=== PATIENT | female | born 1955 | race Two or more races ===

== ENCOUNTER 2020-08-21 13:06 | Outpatient (REF) | payer MEDICARE, SELFPAY ==
--- NOTE | 2020-08-21 13:14 | MM_ITS ---
EXAMINATION: MM DIAGNOSTIC DIGITAL BREAST TOMOSYNTHESIS, BILATERAL CLINICAL INFORMATION: Digital for yearly exam. Probable benign calcifications related to degenerating fibroadenoma retroareolar right breast for follow-up. The lifetime risk of breast cancer based on the Tyrer-Cuzick Model is 7%. COMPARISON: Mammography: 08/10/2019, 01/25/2019, 07/27/2018, 07/20/2018 (BI-RADS 0). TECHNIQUE: Digital breast tomosynthesis is performed in both the craniocaudal and mediolateral oblique views along with computer-aided detection (CAD). Synthesized 2D images are generated from the tomosynthesis. Additional magnification right CC and magnification right ML views are obtained. FINDINGS: There are scattered areas of fibroglandular density (ACR BI-RADS breast composition Category b). Parenchymal pattern is similar to prior studies. There is no interval mass or architectural abnormality. There is a smooth non-mineralized circumscribed nodule anterior central right breast similar to prior exams. The retroareolar nodule associated predominantly coarse calcifications is again seen. Calcifications are coarse and then on initial diagnostic exam. There is no suspicious changes during surveillance. This is now considered to be benign. The remainder of the breasts are unremarkable. Results are provided to the patient at time of visit by the technologist. IMPRESSION: No significant changes from prior studies. The retroareolar right breast calcified patient's likely degenerating fibroadenoma are considered benign. ASSESSMENT: BI-RADS 2: Benign RECOMMENDATION: Routine annual mammography screening. This patient's information was entered into a reminder system with a target due date for their next mammogram.
== END 2020-08-21 13:07 | disposition home or self-care (01) ==
LOC: HO.MAMMO 13:06
PROVIDERS: Visit Provider Internal Medicine
DX: R92.1 Mammographic calcification found on diagnostic imaging of breast (principal)
CPT/HCPCS: 77062; 77066

== ENCOUNTER → 2020-11-17 11:44 | Outpatient (BNVA) | payer MEDICARE, SELFPAY | PROVIDERS: PCP Internal Medicine; Visit Provider Urology | DX: N39.0 Urinary tract infection, site not specified (principal) | CPT/HCPCS: 99212 ==

== ENCOUNTER 2020-11-20 11:41 | Outpatient (REF) | payer MEDICARE, SELFPAY ==
[2020-11-20 14:16] LABS: Estimated Average Glucose 180 mg/dL; Hemoglobin A1c % 7.9 %
[2020-11-20 14:38] LABS: Creatinine Urine 53.07 mg/dL; Microalbum/Creatinine Ratio Ur 160.1 ug/mg cr
[2020-11-20 14:40] LABS: Alanine Aminotransferase 15 U/L (0-31); Anion Gap 14 (12-20); Aspartate Amino Transferase 17 U/L (5-31); Blood Urea Nitrogen 18 mg/dL (9-16); Calcium 9.2 mg/dL (8.4-10.2); Carbon Dioxide 26 mmol/L (22-29); Chloride 103 mmol/L (96-108); Cholesterol 160 mg/dL; Estimated Glomerular Filt Rate > 60; Glucose Fasting 107 mg/dL (60-99); HDL Cholesterol 41 mg/dL; LDL Cholesterol Calculated 96 mg/dl; Potassium 4.2 mmol/l (3.3-5.1); Sodium 139 mmol/L (135-145); Triglycerides 117 mg/dL
== END 2020-11-20 11:42 | disposition home or self-care (01) ==
LOC: HO.HMGCLDS 11:41
PROVIDERS: PCP Internal Medicine; Visit Provider Internal Medicine
DX: E11.65 Type 2 diabetes mellitus with hyperglycemia (principal); I10 Essential (primary) hypertension; E78.5 Hyperlipidemia, unspecified
CPT/HCPCS: 36415; 80048; 80061; 82043; 83036; 84450; 84460

== ENCOUNTER 2021-02-23 11:45 | Outpatient (REF) | payer OTHER, SELFPAY ==
[2021-02-23 14:16] LABS: Estimated Average Glucose 174 mg/dL; Hemoglobin A1c % 7.7 %
[2021-02-23 14:31] LABS: Alanine Aminotransferase 20 U/L (0-31); Albumin Level 4.7 g/dL (3.5-5.0); Alkaline Phosphatase 79 U/L (39-117); Anion Gap 13 (12-20); Aspartate Amino Transferase 18 U/L (5-31); Bilirubin Total 1.3 mg/dL (0.0-1.0); Blood Urea Nitrogen 20 mg/dL (9-16); Calcium 9.9 mg/dL (8.4-10.2); Carbon Dioxide 30 mmol/L (22-29); Chloride 101 mmol/L (96-108); Cholesterol 182 mg/dL; Estimated Glomerular Filt Rate > 60; Glucose Fasting 125 mg/dL (60-99); HDL Cholesterol 51 mg/dL; LDL Cholesterol Calculated 111 mg/dl; Potassium 4.1 mmol/L (3.3-5.1); Sodium 140 mmol/L (135-145); Total Protein 7.5 g/dL (6.5-8.0); Triglycerides 102 mg/dL
[2021-02-23 14:54] LABS: Vitamin D 25-OH Total 41.3 ng/mL (>30)
== END 2021-02-23 11:46 | disposition home or self-care (01) ==
LOC: HO.HMGCLDS 11:45
PROVIDERS: PCP Internal Medicine; Visit Provider Internal Medicine
DX: E11.29 Type 2 diabetes mellitus with other diabetic kidney complication (principal); E78.5 Hyperlipidemia, unspecified; I10 Essential (primary) hypertension; I25.10 Atherosclerotic heart disease of native coronary artery without angina pectoris; R80.9 Proteinuria, unspecified
CPT/HCPCS: 36415; 80053; 80061; 82306; 83036

== ENCOUNTER 2021-05-24 09:09 | Outpatient (REF) | payer OTHER, SELFPAY ==
[2021-05-24 11:51] LABS: Alanine Aminotransferase 18 U/L (0-31); Anion Gap 12 (12-20); Aspartate Amino Transferase 18 U/L (5-31); Blood Urea Nitrogen 18 mg/dL (9-16); Calcium 9.8 mg/dL (8.4-10.2); Carbon Dioxide 29 mmol/L (22-29); Chloride 103 mmol/L (96-108); Cholesterol 183 mg/dL; Estimated Glomerular Filt Rate > 60; Glucose Fasting 149 mg/dL (60-99); HDL Cholesterol 48 mg/dL; LDL Cholesterol Calculated 116 mg/dl; Potassium 4.7 mmol/L (3.3-5.1); Sodium 139 mmol/L (135-145); Triglycerides 97 mg/dL
[2021-05-24 12:02] LABS: Estimated Average Glucose 171 mg/dL; Hemoglobin A1c % 7.6 %
== END 2021-05-24 09:10 | disposition home or self-care (01) ==
LOC: HO.HMGCLDS 09:09
PROVIDERS: PCP Internal Medicine; Visit Provider Internal Medicine
DX: E11.29 Type 2 diabetes mellitus with other diabetic kidney complication (principal); E78.5 Hyperlipidemia, unspecified; I10 Essential (primary) hypertension; I25.10 Atherosclerotic heart disease of native coronary artery without angina pectoris; R80.9 Proteinuria, unspecified
CPT/HCPCS: 36415; 80048; 80061; 83036; 84450; 84460

== ENCOUNTER 2021-06-15 07:54 | Outpatient (REF) | payer OTHER, SELFPAY ==
--- NOTE | 2021-06-15 16:52 | PFT_ITS ---
Forced vital capacity, FEV1, [id number], and MVV are all moderately decreased. Post bronchodilator therapy, there is a significant improvement in [id number], but not in other flow volumes. Total lung capacity is moderately decreased. Residual volume normal. Diffusion capacity is slightly decreased. CONCLUSION: [id number] degree of restrictive pulmonary disorder. Possible mild obstructive airway disorder of the smaller airways which improves after bronchodilator therapy. This finding may be suggestive of a mild degree of bronchospastic component. Clinical correlation is recommended. MD BIB Elena/ANTOINE / [id number]
== END 2021-06-15 07:55 | disposition home or self-care (01) ==
LOC: HO.RESP 07:54
PROVIDERS: PCP Internal Medicine; Visit Provider Internal Medicine
DX: R05 Cough (principal)
CPT/HCPCS: 94060; 94727; 94729

== ENCOUNTER → 2021-06-26 14:12 | Outpatient (BNVA) | payer OTHER, SELFPAY | PROVIDERS: PCP Internal Medicine | DX: N39.0 Urinary tract infection, site not specified (principal) | CPT/HCPCS: 51798; 99212 ==

== ENCOUNTER → 2021-07-05 12:46 | Outpatient (BNVA) | payer OTHER, SELFPAY | PROVIDERS: PCP Internal Medicine; Visit Provider Dietitian, Registered | DX: E11.29 Type 2 diabetes mellitus with other diabetic kidney complication (principal); R80.9 Proteinuria, unspecified | CPT/HCPCS: 97803 ==

== ENCOUNTER 2021-07-26 11:25 | Outpatient (REF) | payer OTHER, SELFPAY ==
[2021-07-27 14:05] LABS: CT PCR NOT DETECTED (Not Detect.); NG PCR NOT DETECTED (Not Detect.)
[2021-07-28 15:22] LABS: BV Int Neg Control Negative (Negative); BV Int Pos Control Positive (Positive)
[2021-08-01 08:21] LABS: HPV mRNA E6/E7 rflx Not Detected (Not Detected)
== END 2021-07-26 11:26 | disposition home or self-care (01) ==
LOC: HO.LAB 11:25
PROVIDERS: Visit Provider Advanced Practice Midwife
DX: Z01.419 Encounter for gynecological examination (general) (routine) without abnormal findings (principal); Z11.51 Encounter for screening for human papillomavirus (HPV); Z11.3 Encounter for screening for infections with a predominantly sexual mode of transmission
CPT/HCPCS: 87480; 87491; 87510; 87591; 87624; 87660; 88142

== ENCOUNTER → 2021-08-16 13:05 | Outpatient (BNVA) | payer OTHER, SELFPAY | PROVIDERS: PCP Internal Medicine; Visit Provider Dietitian, Registered | DX: E11.65 Type 2 diabetes mellitus with hyperglycemia (principal); E11.29 Type 2 diabetes mellitus with other diabetic kidney complication; I25.10 Atherosclerotic heart disease of native coronary artery without angina pectoris; I10 Essential (primary) hypertension; J45.20 Mild intermittent asthma, uncomplicated; M85.88 Other specified disorders of bone density and structure, other site; Z79.4 Long term (current) use of insulin; R80.8 Other proteinuria; Z88.6 Allergy status to analgesic agent; Z88.1 Allergy status to other antibiotic agents; Z88.2 Allergy status to sulfonamides; Z88.8 Allergy status to other drugs, medicaments and biological substances; Z95.5 Presence of coronary angioplasty implant and graft; Z53.29 Procedure and treatment not carried out because of patient's decision for other reasons; Z71.3 Dietary counseling and surveillance | CPT/HCPCS: 97803 ==

== ENCOUNTER → 2021-08-21 13:34 | Outpatient (BNVA) | payer OTHER, SELFPAY | DX: N32.81 Overactive bladder (principal) | CPT/HCPCS: 99212 ==

== ENCOUNTER 2021-08-28 12:58 | Outpatient (REF) | payer OTHER, SELFPAY ==
--- NOTE | ~2021-08-28 | MM_ITS ---
EXAMINATION: MM SCREENING DIGITAL BREAST TOMOSYNTHESIS, BILATERAL CLINICAL INFORMATION: Screening. Asymptomatic. The lifetime risk of breast cancer based on the Tyrer-Cuzick Model is 6.1%. COMPARISON: Mammography: August 21, 2020 and studies dating back to May 22, 2011 TECHNIQUE: Digital breast tomosynthesis is performed in both the craniocaudal and mediolateral oblique views along with computer-aided detection (CAD). Synthesized 2D images are generated from the tomosynthesis. FINDINGS: The breasts are heterogeneously dense, which may obscure small masses (ACR BI-RADS breast composition Category c). There are no significant masses, abnormal calcifications, or other abnormalities. Question of density on mediolateral oblique projection central left breast is seen to be similar to previous study of July 20, 2018. MM/MM tomosynthesis screening BI IMPRESSION: There are no significant changes from prior study. ASSESSMENT: BI-RADS 1: Negative RECOMMENDATION: Routine annual mammography screening. This patient's information was entered into a reminder system with a target due date for their next mammogram.
== END 2021-08-28 12:59 | disposition home or self-care (01) ==
LOC: HO.MAMMO 12:58
PROVIDERS: Visit Provider Internal Medicine
DX: Z12.31 Encounter for screening mammogram for malignant neoplasm of breast (principal)
CPT/HCPCS: 77063; 77067

== ENCOUNTER 2021-09-04 09:08 | Outpatient (REF) | payer OTHER, SELFPAY ==
[2021-09-04 11:51] LABS: Alanine Aminotransferase 19 U/L (0-31); Anion Gap 14 (12-20); Aspartate Amino Transferase 19 U/L (5-31); Blood Urea Nitrogen 14 mg/dL (9-16); Calcium 9.6 mg/dL (8.4-10.2); Carbon Dioxide 28 mmol/L (22-29); Chloride 104 mmol/L (96-108); Cholesterol 186 mg/dL; Estimated Glomerular Filt Rate > 60; Glucose Fasting 158 mg/dL (60-99); HDL Cholesterol 47 mg/dL; LDL Cholesterol Calculated 114 mg/dl; Sodium 142 mmol/L (135-145); Triglycerides 126 mg/dL
[2021-09-04 11:53] LABS: Estimated Average Glucose 174 mg/dL; Hemoglobin A1c % 7.7 %
[2021-09-04 12:04] LABS: Vitamin D 25-OH Total 33.4 ng/mL (>30)
== END 2021-09-04 09:09 | disposition home or self-care (01) ==
LOC: HO.HMGCLDS 09:08
PROVIDERS: PCP Internal Medicine; Visit Provider Internal Medicine
DX: E11.29 Type 2 diabetes mellitus with other diabetic kidney complication (principal); E78.5 Hyperlipidemia, unspecified; I10 Essential (primary) hypertension; I25.10 Atherosclerotic heart disease of native coronary artery without angina pectoris; M85.80 Other specified disorders of bone density and structure, unspecified site; R80.9 Proteinuria, unspecified
CPT/HCPCS: 36415; 80048; 80061; 82306; 83036; 84450; 84460

== ENCOUNTER → 2021-12-26 12:28 | Outpatient (BNVA) | payer OTHER, SELFPAY | PROVIDERS: PCP Internal Medicine; Visit Provider Dietitian, Registered | DX: E11.29 Type 2 diabetes mellitus with other diabetic kidney complication (principal); R80.9 Proteinuria, unspecified; Z71.3 Dietary counseling and surveillance | CPT/HCPCS: 97803 ==

== ENCOUNTER 2021-12-31 03:35 | Emergency (ER) | payer OTHER, SELFPAY ==
[2021-12-31 03:51] VITALS: BP 159/83; PULSE 95; RESP 18; TEMP 36.7; O2SAT 99; BMI 22.2
--- NOTE | 2021-12-31 03:58 | ECG_ITS ---
Test Reason : high bp Blood Pressure : / mmHG Vent. Rate : 084 BPM Atrial Rate : 084 BPM P-R Int : 128 ms QRS Dur : 092 ms QT Int : 358 ms P-R-T Axes : 046 -02 008 degrees QTc Int : 423 ms Normal sinus rhythm Normal ECG When compared with ECG of 19-MAR-2017 01:24, T wave inversion less evident in Inferior leads Referred By: Helen Chacon Electronically Signed By:Doroteo Ortiz
[2021-12-31 04:00] VITALS: BP 142/73; PULSE 88; RESP 13; O2SAT 98
--- NOTE | 2021-12-31 04:05 | ED.GENADULT ---
HPI - General Adult General Chief complaint: General Medical Stated complaint: high BP, difficulty standing Time Seen by Provider: 12/31/21 03:44 Source: patient Mode of arrival: ambulatory Limitations: no limitations History of Present Illness HPI narrative: Patient comes to emergency room complaining of feeling funny. Patient states she is unable to describe the sensation. Patient states that before coming to the emergency room she checked her blood pressure, her machine read as ?high? and also states that her blood sugar was in the 200s. At this time, patient denies chest pain, no shortness of breath, patient denies substance abuse. She states that she feels quite anxious, states she is going through a lot. Related Data Home Medications Medication Instructions Recorded Confirmed acetaminophen 325 mg capsule 325 mg PO QID PRN 08/03/20 12/06/21 albuterol sulfate 90 mcg/actuation 2 puff PO Q6H PRN 08/03/20 12/06/21 aerosol inhaler apixaban 5 mg tablet 5 mg PO BID 08/03/20 12/06/21 cholecalciferol (vitamin D3) 50 50 mcg PO DAILY 08/03/20 12/06/21 mcg (2,000 unit) capsule lancets 28 gauge (FreeStyle #100 ea 08/03/20 12/06/21 Lancets) hydrocortisone 2.5 % topical TOPICAL 06/26/21 12/06/21 ointment metoprolol succinate 200 mg 200 mg PO DAILY 06/26/21 12/06/21 tablet,extended release 24 hr Previous Rx's Medication Instructions Recorded docusate sodium 100 mg capsule 100 mg PO DAILY #30 cap 05/29/21 blood sugar diagnostic (FreeStyle 1 strip MISCELLANEOUS BID #100 06/26/21 Lite Strips) strip fluticasone propionate 110 1 puff INHALATION Q12H #12 g 06/27/21 mcg/actuation HFA aerosol inhaler lisinopril 5 mg tablet 5 mg PO DAILY #90 tab 07/23/21 ezetimibe 10 mg tablet 10 mg PO DAILY #30 tab 09/07/21 metformin 500 mg tablet,extended 500 mg PO QPM #30 tab 09/07/21 release 24hr oxybutynin chloride 10 mg 10 mg PO DAILY 90 Days #90 tab 11/16/21 tablet,extended release 24 hr cyclobenzaprine 10 mg tablet 10 mg PO BEDTIME PRN #15 tab 12/07/21 dapagliflozin 10 mg tablet 10 mg PO QAM #90 tab 12/07/[address] ([facility]) hydroxyzine HCl 10 mg tablet 5 mg PO BEDTIME PRN #20 tab 12/12/21 Allergies Allergy/AdvReac Type Severity Reaction Status Date / Time atorvastatin [From LIPITOR] AdvReac Intermediate STOMACH Verified 12/06/21 16:53 ACHE oxycodone [From OXYCONTIN] AdvReac Intermediate SENSORY Verified 12/06/21 16:53 HALLUCINATIONS sulfamethoxazole AdvReac Intermediate chills Verified 12/06/21 16:53 [From Bactrim] Review of Systems Review of Systems: Constitutional : No Weight loss, No Fever, No Chills, No Night Sweats, No Fatigue, No Malaise ENT/Mouth : No Hearing loss, No Ear Pain, No Nasal Congestion, No Sinus Pain, No Hoarseness, No sore throat, No Rhinorrhea, No Swallowing Difficulty Eyes: No Eye Pain, No Swelling, No Redness, No Foreign Body, No Discharge, No Vision Changes Cardiovascular : No Chest Pain, No SOB, No Dyspnea on Exertion, No Orthopnea, No Edema, No Palpitations Respiratory : No Cough, No Sputum, No Wheezing, No Smoke Exposure, No Dyspnea Gastrointestinal : No Nausea, No Vomiting, No Diarrhea, No Constipation, No abdominal Pain, No Hematochezia, No Melena Genitourinary : no irregular bleeding, No Dysuria, No Urinary Frequency, No Hematuria, No Urinary Incontinence, No Urgency, No Flank Pain, No Urinary Flow Changes, No Hesitancy Musculoskeletal : No joint pain, No Myalgias, No Joint Swelling, chronic back pain, no new symptoms Skin : No Skin Lesions, No rash Neuro : No Weakness, No Numbness, No Paresthesias, No Loss of Consciousness, No Dizziness, No Headache Psych : No Anxiety/Panic, No Depression, No SI/HI/AH/VH, No Social Issues, Heme/Lymph: No Bruising, No Bleeding,No Lymphadenopathy Endocrine : No Polyuria, No Polydipsia, No Temperature Intolerance [facility] Past Medical History Medical History Constipation Coronary artery disease involving [place] coronary artery Depression Diabetes mellitus with microalbuminuria, without long-term current use of insulin Dyslipidemia Facial skin lesion History of depression History of ST elevation myocardial infarction (STEMI) Hypertension Lumbago Mild intermittent asthma in adult without complication Muscle spasm OAB (overactive bladder) Osteoarthritis, knee Osteopenia after menopause Overweight Paresthesia of right leg Recurrent cough Refused pneumococcal vaccination Refused vaccination to Haemophilus influenzae type B (Hib) Type 2 diabetes mellitus with hyperglycemia, without long-term current use of insulin Varicose veins of right lower extremity Surgical History History of section History of heart artery stent Hx of myomectomy S/P left rotator cuff repair Family History Family History Father No problems noted. Mother No problems noted. 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 Oriented X3. No acute distress. Eyes: Pupils equal, round and reactive to light. ENT: Pharynx normal. Neck: Normal inspection. Neck supple. No lymph nodes noted. No crepitus CVS: Normal heart rate and rhythm. Pulses normal. Normal S1 and S2 Respiratory: No respiratory distress. Breath sounds normal. No Wheezing. No rales Abdomen: Soft and nontender. No rigidity. No distention. Skin: Skin warm and dry. Normal skin color. Normal skin turgor. Extremities: No lower extremity edema. No Lacerations. No Rash Neuro: Oriented X 3. No motor deficit. No sensory deficit. Moving all extermities. No slurred speech. Course Course Course Narrative: I discussed the labs and EKG with the patient, no acute findings. Patient states that she has been under a lot of stress, recently a family member and it has been triggering her anxiety. Patient's blood pressure in the emergency room 142 /73 with no treatment Medical Decision Making Lab Data Result diagrams: 12/31/21 04:06 12/31/21 04:06 Labs: Lab Results 12/31/21 12/31/21 12/31/21 Range/Units 04:06 04:06 04:06 WBC 4.9 (4.8-10.8) X10*3/uL RBC 4.13 L (4.20-5.50) X10*6/uL Hgb 12.7 (12.0-16.0) g/dl Hct 38.2 (37.0-47.0) % MCV 92.5 (80.0-98.0) fL MCH 30.8 (27.0-33.0) pg MCHC 33.2 (31.0-35.0) g/dl RDW 11.3 (11.0-16.0) % Plt Count 217 (160-400) X10*3/uL MPV 10.2 (9.4-12.3) fL Immature Gran % (Auto) 0.2 (0.0-0.4) % Neut % (Auto) 46.6 (45-73) % Lymph % (Auto) 36.6 (20-40) % Freestone % (Auto) 12.5 H (2-11) % Eos % (Auto) 3.9 (0-4) % Baso % (Auto) 0.2 (0-2) % Lymph # (Auto) 1.8 (1.2-4.9) X10*3/uL [place] # (Auto) 0.6 (0.1-1.2) X10*3/uL Eos # (Auto) 0.2 (0.0-0.4) X10*3/uL Baso # (Auto) 0.0 (0.0-0.2) X10*3/uL Abs Immat Gran (auto) 0.01 (0.00-0.03) X10*3/uL Absolute Neuts (auto) 2.3 (2.0-8.3) x10*3/uL Absolute Nucleated RBC 0.000 (0.0-0.012) X10*3/uL Nucleated RBC % (auto) 0.0 (0.0-0.2) /100WBC Sodium 138 (135-145) mmol/L Potassium 3.9 (3.3-5.1) mmol/L Chloride 103 (96-108) mmol/L Carbon Dioxide 27 (22-29) mmol/L Anion Gap 12 (12-20) BUN 21 H (9-16) mg/dL Creatinine 0.74 (0.5-1.4) mg/dL Estim Creat Clear Calc 59.9 Estimated GFR > 60 Random Glucose 182 H (60-115) mg/dL Calcium 9.9 (8.4-10.2) mg/dL Total Bilirubin 0.3 (0.0-1.0) mg/dL Direct Bilirubin < 0.2 (0.0-0.5) mg/dL AST 18 (5-31) U/L ALT 21 (0-31) U/L Alkaline Phosphatase 94 (39-117) U/L Troponin I High Sens 5.0 (<3.5-17.0) ng/L Total Protein 6.7 (6.5-8.0) g/dL Albumin 4.1 (3.5-5.0) g/dL ECG Data Attestation: I personally reviewed and interpreted this ECG as follows: (Sinus rhythm, heart rate 84, no ST segment depression or elevation, nonspecific T-wave inversion in lead 3, QTC 423) Discharge Plan Discharge Clinical Impression: Anxiety Patient Disposition: Home, Self-Care Instructions: Anxiety (ED) Additional Instructions: Please follow-up with your primary care physician tomorrow. If you have any worsening or new symptoms, please return to the emergency room or call 911 Prescriptions: No Action FreeStyle Lite Strips Strip 1 strip miscellaneous BID Qty: 100 4RF lisinopril 5 mg tablet 5 mg PO DAILY Qty: 90 3RF oxybutynin chloride 10 mg tablet extended release 24hr 10 mg PO DAILY 90 Days Qty: 90 1RF Farxiga 10 mg tablet 10 mg PO QAM Qty: 90 3RF cyclobenzaprine 10 mg tablet 10 mg PO BEDTIME PRN (Reason: for muscle spasm) Qty: 15 0RF hydroxyzine HCl 10 mg tablet 5 mg PO BEDTIME PRN (Reason: for anxiety) Qty: 20 0RF docusate sodium 100 mg capsule 100 mg PO DAILY Qty: 30 3RF fluticasone propionate 110 mcg/actuation HFA aerosol inhaler 1 puff inhalation Q12H Qty: 12 1RF Rx Instructions: rinse and gargle mouth after use Eliquis 5 mg tablet 5 mg PO BID 0RF albuterol sulfate 90 mcg/actuation HFA aerosol inhaler 2 puff PO Q6H PRN0RF cholecalciferol (vitamin D3) 50 mcg (2,000 unit) capsule 50 mcg PO DAILY 0RF (DME) lancets [FreeStyle Lancets] 28 gauge misc See Rx Instructions .ROUTE .MEDSUPPLY Qty: 100 0RF Rx Instructions: As directed acetaminophen 325 mg capsule 325 mg PO QID PRN0RF ezetimibe 10 mg tablet 10 mg PO DAILY Qty: 30 5RF metformin 500 mg tablet extended release 24hr 500 mg PO QPM Qty: 30 5RF metoprolol succinate 200 mg tablet extended release 24 hr 200 mg PO DAILY 0RF hydrocortisone 2.5 % ointment topical 0RF
[2021-12-31 04:10] LABS: Basophils Percent Auto 0.2 % (0-2); Eosinophils Absolute Auto 0.2 X10*3/uL (0.0-0.4); Eosinophils Percent Auto 3.9 % (0-4); Hematocrit 38.2 % (37.0-47.0); Hemoglobin 12.7 g/dl (12.0-16.0); Imm Gran Abs Auto 0.01 X10*3/uL (0.00-0.03); Imm Gran Pct Auto 0.2 % (0.0-0.4); Lymphocytes Absolute Auto 1.8 X10*3/uL (1.2-4.9); Lymphocytes Percent Auto 36.6 % (20-40); MANUAL DIFF FLAG NO; Mean Corpuscular HGB Conc 33.2 g/dl (31.0-35.0); Mean Corpuscular Hemoglobin 30.8 pg (27.0-33.0); Mean Corpuscular Volume 92.5 fL (80.0-98.0); Mean Platelet Volume 10.2 fL (9.4-12.3); Monocytes Absolute Auto 0.6 X10*3/uL (0.1-1.2); Monocytes Percent Auto 12.5 % (2-11); Neutrophils Absolute Auto 2.3 x10*3/uL (2.0-8.3); Neutrophils Percent Auto 46.6 % (45-73); Platelet Count 217 X10*3/uL (160-400); Red Blood Count 4.13 X10*6/uL (4.20-5.50); Red Cell Distribution Width 11.3 % (11.0-16.0); White Blood Count 4.9 X10*3/uL (4.8-10.8)
[2021-12-31 04:32] LABS: Alanine Aminotransferase 21 U/L (0-31); Albumin Level 4.1 g/dL (3.5-5.0); Alkaline Phosphatase 94 U/L (39-117); Anion Gap 12 (12-20); Aspartate Amino Transferase 18 U/L (5-31); Bilirubin Direct < 0.2 mg/dL (0.0-0.5); Bilirubin Total 0.3 mg/dL (0.0-1.0); Blood Urea Nitrogen 21 mg/dL (9-16); Calcium 9.9 mg/dL (8.4-10.2); Carbon Dioxide 27 mmol/L (22-29); Chloride 103 mmol/L (96-108); Creatinine Clr Calc Pharmacy 59.9; Estimated Glomerular Filt Rate > 60; Glucose Random 182 mg/dL (60-115); Potassium 3.9 mmol/L (3.3-5.1); Sodium 138 mmol/L (135-145); Total Protein 6.7 g/dL (6.5-8.0)
--- NOTE | 2021-12-31 04:58 | PC.NURSE ---
pt a&o, no sob or chest pain. pt evaluated by provider. Pt is being discharge home, care plan reviewed with pt.
== END 2021-12-31 05:13 | disposition home or self-care (01) ==
PROVIDERS: Emergency Provider Emergency Medicine
DX: F41.9 Anxiety disorder, unspecified (principal); Z72.89 Other problems related to lifestyle; Z63.4 Disappearance and death of family member; I10 Essential (primary) hypertension; E11.9 Type 2 diabetes mellitus without complications; E78.5 Hyperlipidemia, unspecified; I48.0 Paroxysmal atrial fibrillation; Z79.01 Long term (current) use of anticoagulants
CPT/HCPCS: 36415; 80048; 80076; 84484; 85025; 93005; 99283; 99284

== ENCOUNTER 2022-02-13 10:00 | Outpatient (RCR) | payer OTHER, SELFPAY ==
--- NOTE | 2022-01-16 10:50 | MHC.PT.EP ---
[facility] [place] Office [place] Office [place] Office [address] Leif Leger [address] [phone] F: [phone] F: [phone] F: [phone] F: [phone] Physical Therapy Plan of Care Date of Evaluation: Date of Surgery: n/a Diagnosis: low back pain Assessment: Patient is a 66 year old female presenting to PT with complaints of pain in her low back. Pt reports onset of pain began 12/21/2021 after her covid vaccine. She presents today with impairments in pain, lumbar ROM, core strength, posture, and hip strength. Pt's current occupation is none, with baseline physical activities including ADLs, ambulation, and sleeping. 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 Clinical presentation today is most consistent with signs and sx associated with low back with acute worsening and pt will benefit from skilled PT to address the following problems and impairments noted upon evaluation: pain, lumbar ROM, core strength, posture, and hip strength. These problems limit the patient with the following functional activities: transfers, sitting, sleeping, bending, lifting, and ADLs. The prescribed treatment plan of care is medically necessary. Co-morbidities of DM, CAD, History of ST elevation myocardial infarction (STEMI), HTN, osteopenia were identified and taken into considerations of plan of care. Pt was educated on HEP, role of PT, prognosis, POC. Frequency and Duration: The patient will be seen 2 x week x 4 weeks Short Term Goals: Pt will demonstrate improved hip strength by 1/3 MMT for improved lumbopelvic stability in 2 weeks. Pt will demonstrate decreased pain to <5/10 in 2 weeks for improved QOL. Pt will demonstrate ability to perform PPT with good TA recruitment in 2 weeks. Pt will demonstrate improved postural awareness by sitting with biomechanically correct posture without cues throughout session to improve overall postural function in 2 weeks. Correction Goals: Pt will demonstrate ability to complete ADLs with min to no pain in 4 weeks for improved role at home. Pt will demonstrate improved Casper score to <20% disability in 4 weeks for improved functional mobility. Pt will demonstrate ability to transfer including rolling in bed with min to no pain in 4 weeks. Treatment Plan: Modalities to reduce pain, spasms and effusion. Manual therapy to restore motion and function. Therapeutic exercise to improve strength and flexibility. Neuromuscular re-education for posture and balance. Therapeutic activities to return to functional activities of daily living. Electronically signed by: Areli Gomes, PT, DPT, ATC Please sign and return to therapist. Thank you for your referral.
--- NOTE | 2022-02-13 11:48 | MHC.PT.DC ---
[facility] [place] Office [place] Office [place] Office [address] [phone] F: [phone] F: [phone] F: [phone] F: [phone] Physical Therapy Discharge Report Diagnosis: low back pain Date of Surgery: n/a Date of Evaluation: 01/16/22 Date of Discharge: 02/13/22 Treatments to Date: 8 Cancellations to Date: 1 No Shows to Date: 0 Discharge Status: Patient Elected to Stop Discharge Summary: Pt has made fair progress towards her goals since beginning PT however she continues to have pain primarily with transfer movements like rolling in bed. She is requesting to stop PT as she wants to begin pool exercise class but feels PT and the pool will be too much at the same time. Therefore pt is requesting to be D/C at this time. I feel this is reasonable given she would like to try an alternative type of therapy and was not making significant gains with skilled PT. Pt understands that if she does not feel improvements with pool exercise then to follow up with MD. Electronically signed by: Areli Gomes, PT, DPT, ATC Please sign and return to therapist. Thank you for your referral.
== END 2022-02-13 11:48 | disposition home or self-care (01) ==
LOC: HO.PTCHIC 10:00
PROVIDERS: PCP Internal Medicine; Visit Provider Internal Medicine
DX: M54.50 Low back pain, unspecified (principal)
CPT/HCPCS: 97110; 97162

== ENCOUNTER 2022-03-02 14:23 | Emergency (ER) | payer OTHER, SELFPAY ==
[2022-03-02 14:31] VITALS: BP 158/90; PULSE 99; TEMP 37.7; O2SAT 96; BMI 24.6
[2022-03-02 14:53] LABS: COVID-19 Test Positive (Negative)
--- NOTE | 2022-03-02 15:01 | ED_ITS ---
HPI - General Adult General Chief complaint: General Medical Stated complaint: sore throat body aches coughing Time Seen by Provider: 03/02/22 14:43 Source: patient Mode of arrival: ambulatory Limitations: no limitations History of Present Illness HPI narrative: 67 y/o female with history of paroxysmal afib, DM2, HLD, HTN, CAD, and asthma depression/anxiety who presents to the ER with 4 days of body aches, dry cough and subjective fevers at home. She denies any known sick contacts. She is vaccinated for COVID but not the Flu. She does not go out into public because she is worried about getting COVID. She denies any shortness of breath, difficulty breathing or chest pain. She reports headache, diffuse joint and body aches as well as feeling feverish and having chills. MD complaint: cough and body aches Onset (ago): day(s) (4) Location: head, back, left, right and lower extremity Radiation: non-radiation Severity: mild Severity scale (1-10): 3 Quality: aching Pain Consistency: intermittent Relieving factors: medication Exacerbating factors: none Associated symptoms: cough, fever/chills, headaches, loss of appetite and malai se Treatments prior to arrival: none Related Data Home Medications Medication Instructions Recorded Confirmed acetaminophen 325 mg capsule 325 mg PO QID PRN 08/03/20 01/24/22 apixaban 5 mg tablet 5 mg PO BID 08/03/20 01/24/22 lancets 28 gauge (FreeStyle #100 ea 08/03/20 01/24/22 Lancets) hydrocortisone 2.5 % topical TOPICAL 06/26/21 01/24/22 ointment metoprolol succinate 200 mg 200 mg PO DAILY 06/26/21 01/24/22 tablet,extended release 24 hr Previous Rx's Medication Instructions Recorded blood sugar diagnostic (FreeStyle 1 strip MISCELLANEOUS BID #100 06/26/21 Lite Strips) strip fluticasone propionate 110 1 puff INHALATION Q12H #12 g 06/27/21 mcg/actuation HFA aerosol inhaler lisinopril 5 mg tablet 5 mg PO DAILY #90 tab 07/23/21 ezetimibe 10 mg tablet 10 mg PO DAILY #30 tab 09/07/21 oxybutynin chloride 10 mg 10 mg PO DAILY 90 Days #90 tab 11/16/21 tablet,extended release 24 hr dapagliflozin 10 mg tablet 10 mg PO QAM #90 tab 12/07/21 (Farxiga) cyclobenzaprine 10 mg tablet 10 mg PO BEDTIME PRN #15 tab 01/10/22 docusate sodium 100 mg capsule 100 mg PO DAILY #30 cap 02/07/22 hydroxyzine HCl 10 mg tablet 5 mg PO BEDTIME PRN #20 tab 02/14/22 benzonatate 100 mg capsule 100 mg PO TID PRN #20 cap 03/02/22 Allergies Allergy/AdvReac Type Severity Reaction Status Date / Time atorvastatin [From LIPITOR] AdvReac Intermediate STOMACH Verified 03/02/22 14:34 ACHE oxycodone [From OXYCONTIN] AdvReac Intermediate SENSORY Verified 03/02/22 14:34 HALLUCINATIONS sulfamethoxazole AdvReac Intermediate chills Verified 03/02/22 14:34 [From Bactrim] Review of Systems Review of Systems: Constitutional: + Fever, +Chills ENT/Mouth: No sore throat, No Rhinorrhea, No Swallowing Difficulty Eyes: No Eye Pain, No Swelling, No Redness Cardiovascular: No Chest Pain, No SOB, No Orthopnea, No Edema Respiratory: + Cough, No Sputum, No Wheezing, No dyspnea Gastrointestinal: No Nausea, No Vomiting, No Diarrhea, No abdominal Pain Musculoskeletal: No joint pain, + Myalgias Skin: No Skin Lesions, No rash Neuro: No Weakness, No Numbness, No Dizziness, + Headache Heme/Lymph: No Bruising, No Lymphadenopathy PMFSH Past Medical History Medical History Anxiety as acute reaction to gross stress Constipation Coronary artery disease involving [place] coronary artery Depression Diabetes mellitus with microalbuminuria, without long-term current use of insulin Dyslipidemia Facial skin lesion History of depression History of ST elevation myocardial infarction (STEMI) Hypertension Lumbago Mild intermittent asthma in adult without complication Muscle spasm OAB (overactive bladder) Osteoarthritis, knee Osteopenia after menopause Overweight Paresthesia of right leg Recurrent cough Refused pneumococcal vaccination Refused vaccination to Haemophilus influenzae type B (Hib) Type 2 diabetes mellitus with hyperglycemia, without long-term current use of insulin Varicose veins of right lower extremity Surgical History History of section History of heart artery stent Hx of myomectomy S/P left rotator cuff repair Family History Family History Father No problems noted. Mother No problems noted. 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 Oriented X3. No acute distress. Eyes: Pupils equal, round and reactive to light. ENT: Pharynx with mild generalized erythema, no tonsillar swelling or exudate Neck: Normal inspection. Neck supple. CVS: Normal heart rate and rhythm. Pulses normal. Respiratory: No respiratory distress. Breath sounds normal. Abdomen: Soft and nontender. +BS x4 Skin: Skin warm and dry. Normal skin color. Normal skin turgor. No rashes. Extremities: No lower extremity edema. No calf tenderness Neuro: Oriented X 3. Grossly normal, nonfocal Course Course Course Narrative: 67 y/o female presents to the ER with for 5 days of dry cough, body aches and headache. She denies any shortness of breath, chest pain or difficulty breathing. He denies any known sick contacts. On arrival to the ER she is slightly hypertensive, low-grade fever 99.9. SpO2 96% on room air. Her lungs are clear on examination and she appears nontoxic. Influenza and COVID swabs were sent and she is found to be COVID-19 positive. Patient was counseled on her diagnosis including symptomatic management and strict return precautions if she were to develop any worsening respiratory complaints. Advised to purchase a pulse oximeter and monitor her pulse oximetry at home. She will follow-up with her doctor as needed or come back to the ER if she has hypoxia or worsening shortness of breath. Stable for DC home. Medical Decision Making Lab Data Labs: Lab Results 03/02/22 03/02/22 Range/Units 14:36 14:36 COVID-19 (PMA) Positive A (Negative) COVID-19 Clin Com See Note Influenza Type A (DAMARI) Negative (Negative) Influenza Type B (DAMARI) Negative (Negative) Influenza A & B Note See Note Critical Care Time Critical Care Time Critical Care Time: No Discharge Plan Discharge Clinical Impression: COVID-19 Patient Disposition: Home, Self-Care Instructions: Covid-19 Viral Syndrome and Novel Coronavirus (ED) Hey/Ath Additional Instructions: You were found to be COVID-19 POSITIVE today. Your exam and oxygen levels were normal. Rest. Drink plenty of fluids. Do not go out in public for the next 5 days. Take over the counter cold/flu medications as needed for your symptoms. Take Tylenol and/or Motrin as needed for fevers and body aches. Recommend purchasing an at home pulse oximeter to measure your oxygen levels at home. If your levels are <92%, recommend coming back to the ER for further evaluation. Follow up with your doctor this week. If you shortness of breath worsens, if you develop difficulty breathing or any other concerning symptom come back to the ER for further evaluation. If You Test Positive for COVID-19 (Isolate) Everyone, regardless of vaccination status. ? Stay home for 5 days. ? If you have no symptoms or your symptoms are resolving after 5 days, you can leave your house. ? Continue to wear a mask around others for 5 additional days. If you have a fever, continue to stay home until your fever resolves. Prescriptions: New benzonatate 100 mg capsule 100 mg PO TID PRN (Reason: cough) Qty: 20 0RF No Action FreeStyle Lite Strips Strip 1 strip miscellaneous BID Qty: 100 4RF lisinopril 5 mg tablet 5 mg PO DAILY Qty: 90 3RF oxybutynin chloride 10 mg tablet extended release 24hr 10 mg PO DAILY 90 Days Qty: 90 1RF Farxiga 10 mg tablet 10 mg PO QAM Qty: 90 3RF cyclobenzaprine 10 mg tablet 10 mg PO BEDTIME PRN (Reason: for muscle spasm) Qty: 15 0RF docusate sodium 100 mg capsule 100 mg PO DAILY Qty: 30 3RF hydroxyzine HCl 10 mg tablet 5 mg PO BEDTIME PRN (Reason: for anxiety) Qty: 20 0RF fluticasone propionate 110 mcg/actuation HFA aerosol inhaler 1 puff inhalation Q12H Qty: 12 1RF Rx Instructions: rinse and gargle mouth after use Eliquis 5 mg tablet 5 mg PO BID 0RF (DME) lancets [FreeStyle Lancets] 28 gauge misc See Rx Instructions .ROUTE .MEDSUPPLY Qty: 100 0RF Rx Instructions: As directed acetaminophen 325 mg capsule 325 mg PO QID PRN0RF ezetimibe 10 mg tablet 10 mg PO DAILY Qty: 30 5RF metoprolol succinate 200 mg tablet extended release 24 hr 200 mg PO DAILY 0RF hydrocortisone 2.5 % ointment topical 0RF Referrals: Carri Kohli MD [Primary Care Provider] - (follow up COVID)
[2022-03-02 15:03] LABS: IDNOW Serial# 16C4AD1C; Influenza A Negative (Negative); Influenza B2 Negative (Negative)
[2022-03-02 15:53] VITALS: BP 145/80; PULSE 70; RESP 18; O2SAT 97
== END 2022-03-02 16:02 | disposition home or self-care (01) ==
LOC: HO.ED 15:21
PROVIDERS: Emergency Provider Emergency Medicine; PCP Internal Medicine
DX: U07.1 COVID-19 (principal); E11.9 Type 2 diabetes mellitus without complications; I10 Essential (primary) hypertension; I48.0 Paroxysmal atrial fibrillation; J45.909 Unspecified asthma, uncomplicated
CPT/HCPCS: 87502; 87635; 99283

== ENCOUNTER 2022-03-07 11:48 | Outpatient (REF) | payer OTHER, SELFPAY ==
[2022-03-07 13:56] LABS: Estimated Average Glucose 177 mg/dL; Hemoglobin A1c % 7.8 %
[2022-03-07 14:03] LABS: Alanine Aminotransferase 28 U/L (0-31); Anion Gap 13 (12-20); Aspartate Amino Transferase 24 U/L (5-31); Blood Urea Nitrogen 18 mg/dL (9-16); Calcium 9.8 mg/dL (8.4-10.2); Carbon Dioxide 28 mmol/L (22-29); Chloride 103 mmol/L (96-108); Cholesterol 223 mg/dL; Estimated Glomerular Filt Rate > 60; Glucose Fasting 133 mg/dL (60-99); HDL Cholesterol 42 mg/dL; LDL Cholesterol Calculated 159 mg/dl; Sodium 139 mmol/L (135-145); Triglycerides 111 mg/dL
[2022-03-07 14:31] LABS: Creatinine Urine 117.17 mg/dL; Microalbum/Creatinine Ratio Ur 16.2 ug/mg cr
== END 2022-03-07 11:49 | disposition home or self-care (01) ==
LOC: HO.HMGCLDS 11:48
PROVIDERS: PCP Internal Medicine; Visit Provider Internal Medicine
DX: E11.29 Type 2 diabetes mellitus with other diabetic kidney complication (principal); E11.65 Type 2 diabetes mellitus with hyperglycemia; E78.5 Hyperlipidemia, unspecified; I10 Essential (primary) hypertension; I25.10 Atherosclerotic heart disease of native coronary artery without angina pectoris; R80.9 Proteinuria, unspecified
CPT/HCPCS: 36415; 80048; 80061; 82043; 83036; 84450; 84460

== ENCOUNTER 2022-03-12 11:32 | Outpatient (REF) | payer OTHER, SELFPAY ==
[2022-03-12 12:11] LABS: COVID-19 Test Negative (Negative)
== END 2022-03-12 11:33 | disposition home or self-care (01) ==
LOC: HO.LAB 11:32
PROVIDERS: Visit Provider Internal Medicine
DX: Z20.822 Contact with and (suspected) exposure to COVID-19 (principal)
CPT/HCPCS: 87635; C9803

== ENCOUNTER → 2022-06-25 13:03 | Outpatient (BNVA) | payer OTHER, SELFPAY | PROVIDERS: PCP Internal Medicine; Visit Provider Dietitian, Registered | DX: E11.29 Type 2 diabetes mellitus with other diabetic kidney complication (principal); R80.9 Proteinuria, unspecified; Z71.3 Dietary counseling and surveillance | CPT/HCPCS: 97803 ==

== ENCOUNTER 2022-08-29 13:06 | Outpatient (REF) | payer OTHER, SELFPAY ==
--- NOTE | ~2022-08-29 | MM_ITS ---
EXAMINATION: BONE DENSITOMETRY CLINICAL INDICATION: Other specified disorders of bone density and structure. COMPARISON: Previous BD dated 04/27/2019 and baseline BD dated 08/01/2011. TECHNIQUE: Using a [employer] DXA System (software version: 13.1) manufactured by [employer], dual-energy x-ray absorptiometry was performed of the lumbar spine and left hip. The images are of good technical quality. Summary results are attached. FINDINGS: AP SPINE L1-L4: Current: BMD 1.227 g/cm2, Z-score 2.3, T-score 0.4, normal, 1.1% increase from previous, 5.5% increase from baseline (<5% change is not significant). Prior: BMD 1.214 g/cm2. Baseline: BMD 1.163 g/cm2. LEFT FEMUR, NECK: Current: BMD 0.852 g/cm2, Z-score 0.4, T-score -1.3, osteopenia. Prior: BMD 0.773 g/cm2. Baseline: BMD 0.914 g/cm2. LEFT FEMUR, TOTAL: Current: BMD 0.901 g/cm2, Z-score 0.6, T-score -0.6, normal, 1.4% decrease from previous, 9.1% decrease from baseline (<5% change is not significant). Prior: BMD 0.914 g/cm2. Baseline: BMD 0.991 g/cm2. IDENTIFIED RISK FACTORS: Height loss, menopause. HISTORY OF FRACTURE: None listed. MEDICATIONS: Calcium supplements or multivitamin, vitamin D. MM/XR DEXA axial skeleton IMPRESSION: 1. DIAGNOSIS: Osteopenia based on the lowest T-score value of -1.3 in the femoral neck applying World Health Organization criteria. 2. 10-YEAR FRACTURE RISK PREDICTION, FRAX: Major osteoporotic fracture (clinical spine, forearm, hip or shoulder) 5.0%. Hip fracture 0.5%. 3. Treatment Recommendations: NOF guidelines recommend consideration for treatment in postmenopausal women and men age 50 and older presenting with the following: -A hip or vertebral (clinical or morphometric) fracture. -T-score less than or equal to -2.5 at the femoral neck or spine after appropriate evaluation to exclude secondary causes. -Low bone mass at the hip or spine and a 10-year fracture probability by FRAX of greater than or equal to 3% for hip fracture or greater than or equal to 20% for major osteoporotic fracture based on the [place] adapted WHO algorithm. 4. Other Recommendations: All treatment decisions require clinical judgment and consideration of individual patient factors, including patient preferences, comorbidities, previous drug use, risk factors not captured in the FRAX model (e.g. frailty, falls, vitamin D deficiency, increased bone turnover, interval significant decline in bone density) and possible under or overestimation of fracture risk by FRAX. Additional medical evaluation for secondary cause of low bone mineral density may be appropriate. FUTURE SCAN RECOMMENDATION: People with diagnosed cases of osteoporosis or at high risk for fracture should have regular bone mineral density tests. For patients eligible for Medicare, routine testing is allowed once every 2 years. The testing frequency can be increased to one year for patients who have rapidly progressing disease, those who are receiving or discontinuing medical therapy to restore bone mass, or have additional risk factors.
== END 2022-08-29 13:07 | disposition home or self-care (01) ==
LOC: HO.MAMMO 13:06
PROVIDERS: PCP Internal Medicine; Visit Provider Internal Medicine
DX: Z13.820 Encounter for screening for osteoporosis (principal); M85.80 Other specified disorders of bone density and structure, unspecified site; N95.9 Unspecified menopausal and perimenopausal disorder
CPT/HCPCS: 77080

== ENCOUNTER 2022-09-16 10:41 | Outpatient (REF) | payer OTHER, SELFPAY ==
[2022-09-16 14:39] LABS: Estimated Average Glucose 177 mg/dL; Hemoglobin A1c % 7.8 %
[2022-09-16 14:53] LABS: Alanine Aminotransferase 48 U/L (0-31); Anion Gap 15 (12-20); Aspartate Amino Transferase 25 U/L (5-31); Blood Urea Nitrogen 19 mg/dL (9-16); Calcium 9.8 mg/dL (8.4-10.2); Carbon Dioxide 28 mmol/L (22-29); Chloride 104 mmol/L (96-108); Cholesterol 174 mg/dL; Estimated Glomerular Filt Rate > 60; Glucose Fasting 144 mg/dL (60-99); HDL Cholesterol 54 mg/dL; LDL Cholesterol Calculated 103 mg/dl; Potassium 4.9 mmol/L (3.3-5.1); Sodium 142 mmol/L (135-145); Triglycerides 85 mg/dL; Vitamin D 25-OH Total 42.6 ng/mL (>30)
[2022-09-16 14:58] LABS: Creatinine Urine 85.49 mg/dL; Microalbum/Creatinine Ratio Ur 22.2 ug/mg cr
== END 2022-09-16 10:42 | disposition home or self-care (01) ==
LOC: HO.HMGCLDS 10:41
PROVIDERS: PCP Internal Medicine; Visit Provider Internal Medicine
DX: E11.65 Type 2 diabetes mellitus with hyperglycemia (principal); M85.80 Other specified disorders of bone density and structure, unspecified site; I10 Essential (primary) hypertension
CPT/HCPCS: 36415; 80048; 80061; 82043; 82306; 83036; 84450; 84460

== ENCOUNTER 2022-09-17 13:42 | Outpatient (REF) | payer OTHER, SELFPAY ==
--- NOTE | ~2022-09-17 | MM_ITS ---
EXAMINATION: MM SCREENING DIGITAL BREAST TOMOSYNTHESIS, BILATERAL CLINICAL INFORMATION: Screening. Asymptomatic. The lifetime risk of breast cancer based on the Tyrer-Cuzick Model is 5%. COMPARISON: Mammography: 08/28/2021, 08/21/2020, 08/10/2019 TECHNIQUE: Digital breast tomosynthesis is performed in both the craniocaudal and mediolateral oblique views along with computer-aided detection (CAD). Synthesized 2D images are generated from the tomosynthesis. FINDINGS: There are scattered areas of fibroglandular density (ACR BI-RADS breast composition Category b). There are no significant masses, abnormal calcifications, or other abnormalities. Parenchymal pattern is similar to prior studies. No developing density. There are benign grouped coarse calcifications again noted retroareolar right breast suggesting degenerating fibroadenoma. The axilla and skin contours are unremarkable. No significant changes. MM/MM tomosynthesis screening BI IMPRESSION: No mammographic evidence of malignancy. ASSESSMENT: BI-RADS 2: Benign RECOMMENDATION: Routine annual mammography screening. This patient's information was entered into a reminder system with a target due date for their next mammogram.
== END 2022-09-17 13:43 | disposition home or self-care (01) ==
LOC: HO.MAMMO 13:42
PROVIDERS: PCP Internal Medicine; Visit Provider Internal Medicine
DX: Z12.31 Encounter for screening mammogram for malignant neoplasm of breast (principal)
CPT/HCPCS: 77063; 77067

== ENCOUNTER 2022-09-19 09:30 | Outpatient (AMB) | payer OTHER, SELFPAY ==
--- NOTE | 2022-09-19 09:51 | A.OFFPC_ITS ---
Vital Signs 09/19/22 09:52 Height 4 ft 11 in Weight 126 lb BMI 25.4 BP 130/64 Blood Pressure Location Rt brachial Position Sitting Pulse 83 Pulse Source Pulse Oximeter Pulse Oximetry (%) 98 Oxygen Delivery Method Room Air Intake Visit Reasons: Annual PE, Discuss/Bill ACP Intake Note: Pt is here today for her PE Allergies atorvastatin [From LIPITOR] Adverse Reaction (Intermediate, Verified 01/10/25 09:17) STOMACH ACHE oxycodone [From OXYCONTIN] Adverse Reaction (Intermediate, Verified 01/10/25 09:17) SENSORY HALLUCINATIONS sulfamethoxazole [From Bactrim] Adverse Reaction (Intermediate, Verified 01/10/25 09:17) chills vitamin d Adverse Reaction (Intermediate, Uncoded 01/10/25 09:17) Hallucinations Medication List - Last Reconciled 09/19/22 by Carri Kohli MD acetaminophen 325 mg PO QID PRN acetaminophen 325 mg PO QID PRN apixaban 5 mg PO BID blood sugar diagnostic (FreeStyle Lite Strips) 1 strip miscellaneous BID cholecalciferol (vitamin D3) 50 mcg PO DAILY cyclobenzaprine 10 mg PO BEDTIME PRN dapagliflozin (Farxiga) 10 mg PO QAM docusate sodium 100 mg PO DAILY ezetimibe 10 mg PO DAILY fluticasone propionate 110 mcg/actuation 1 puff inhalation Q12H hydrocortisone 2.5% topical hydroxyzine HCl 5 mg (1/2 x 10 mg) PO BEDTIME PRN lancets (FreeStyle Lancets) As directed lisinopril 5 mg PO DAILY metoprolol succinate ER 200 mg PO DAILY nitroglycerin 0 mg sublingual sitagliptin (Januvia) 100 mg PO DAILY Tobacco use date assessed: 09/19/22 Fall risk assessment: No Falls in past year Last assessed Fall Risk: 09/19/22 HPI Annual PE, Discuss/Bill ACP HPI Details 67-year-old lady here today for physical exam. She is up-to-date her screening mammogram, done earlier this month, with benign findings. Last bone density scan was done earlier this year which showed presence of beginning osteopenia in her left femoral neck. Last Pap smear was done a year ago with benign findings as well. She is up-to-date with her screening colonoscopy done 11/11/[address] Gn which showed negative findings, due for repeat in 2028. She has diabetes mellitus, with latest hemoglobin A1c unchanged at 7.8%. Has been taking her medications as directed but has not been very compliant with exercise or diet. Due for her diabetes retinopathy screening but sees Podiatry regularly. She has hypertension, currently stable controlled on present treatment, has dyslipidemia with most recent fasting lipids showing LDL cholesterol at 103 mg/dL, with normal triglycerides and HDL cholesterol levels. Latest labs also showed normal vitamin-D level. Laboratory Tests 09/16/22 09/16/22 10:53 10:53 Hemoglobin A1c % 7.8 Urine Creatinine 85.49 Urine Microalbumin 19.0 Microalb/Creat Rat io 22.2 ENTERED: 09/16/22 -1051 OTFidencio R : ORDERED: Met Pro f Fast, AST, ALT, Lipid Panel, Vitam in D 25-OH Test Result Flag Referen ce Sit e Sodium 142 135-145 mmol/L Potassium 4 .9 3.3-5.1 mm ol/L CL 104 96-108 mmol/ L CO2 28 22-29 mmol/L Gap 15 12-20 BUN 19 H 9-16 mg/dL Creat 0.69 0. 5-1.4 mg/dL EGFR > 60 NOTE: Fo r -[place] Citizen individuals, mult iply the result by 1.2 10. Chronic Kidney Di sease: Estimated GFR < 60 mL/min/1. 73m2 Severe Kidney Disease: Estimated GFR < 15 mL/min/1.73m2 F BS 14 4 H 60-99 mg/dL A fasting glucos e of 126 mg/dl or greater on more th an one occa fortunato is considered diagnostic of feliciano betes. CA 9.8 8 .4-10.2 mg/dL AST (GOT) 25 5-3 1 U/L ALT (GPT) 48 H 0-31 U/L Triglyceride 85 mg/dL Desirable Tr iglyceride: less than 150 mg/d L Borderlin e High Triglycerid e 150-199 mg/dL High Triglyc eride: 200-499 mg/dL Very High Trigl yceride: gre ater than or equal to 5OO mg/dL C hol 17 4 mg/dL Desirable Choles terol: less than 200 mg/dL Borderline Hi gh Cholesterol: 2 00-239 mg/dL High Cholesterol : grea ter than 239 mg/dL LDL Calculated 103 mg/dl Desirable LD L: less than 100 m g/dL Near O ptimal/Above Optim al LDL: 110-129 m g/dL Border line High LDL: 130-159 m g/dL High L DL: 160-189 m g/dL Very H igh LDL: greater t gomez or equal to 190 mg/dL HDL 54 mg/dL D esirable HDL: gre ater than 40 mg/dL Note: This HDL assay may give ar tificially low results in patients with l iver disease. Vi t D 25-OH Tot 42. 6 >30 ng/mL Health Based Refe rence Values* < 20 n g/mL Deficient 20-30 ng/mL Insufficient > 30 ng/mL Suf ficient PFSH Medical History Metformin adverse reaction Urinary incontinence, mixed Oropharyngeal dysphagia COVID-19 vaccination refused Refused influenza vaccine Diabetes mellitus with hyperglycemia, without long-term current use of insulin Anxiety as acute reaction to gross stress Mild intermittent asthma in adult without complication OAB (overactive bladder) Diabetes mellitus with microalbuminuria, without long-term current use of insulin Osteoarthritis, knee History of depression Osteopenia after menopause Overweight Varicose veins of right lower extremity History of ST elevation myocardial infarction (STEMI) Coronary artery disease involving [place] coronary artery Hypertension Refused pneumococcal vaccination Dyslipidemia Surgical History History of section Hx of myomectomy S/P left rotator cuff repair History of heart artery stent Family History Father No problems noted. Mother No problems noted. 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 Depression Screening Interpretation: Negative Source: Developed by Drs. Cabrera Draper, Shanae Hood, Nathaniel Solorio and colleagues, with an educational zeinab from [employer]. Thrive Questionnaire Date Thrive assessed: 01/10/22 CHAPARRO-7 AMB Questionnaire CHAPARRO-7 Date CHAPARRO - 7 assessed: 01/10/22 Source: Developed by Drs. Cabrera Draper, Shanae Hood, Nathaniel Solorio and colleagues, with an educational zeinab from [employer]. Review of Systems Const Denies fatigue, Denies fever(s), Denies headache(s) and Denies weakness Eyes Denies change in vision ENT Denies dizziness, Denies headache(s), Denies nasal congestion, Denies nasal discharge and Denies sore throat Card Denies chest pain, Denies lightheadedness, Denies palpitations and Denies dyspnea Resp Denies cough, Denies dyspnea and Denies wheezing GI Denies abdominal pain, Denies change in bowel habits and Denies heartburn Denies urinary frequency, Denies dysuria and Denies urinary urgency Neuro Denies dizziness, Denies headache(s) and Denies weakness Psych Reports as per HPI Endo Denies fatigue, Denies polydipsia, Denies polyuria and Denies palpitations Aller/Immun Denies seasonal rhinorrhea and Denies wheezing Physical exam (Primary Care) Vital Signs: Last Vital Signs Pulse 83 09/19/22 09:52 BP 130/64 09/19/22 09:52 Pulse Ox 98 09/19/22 09:52 Oxygen Delivery Method Room Air 09/19/22 09:52 BMI result Body Mass Index 25.4 Tobacco/Smoking Status: Tobacco use Status Tobacco use date assessed 09/19/22 09/19/22 09:57 Patient Tobacco Use Status Never used Tobacco 09/19/22 09:57 e-Cigarette/Vaping Use Never Used 09/19/22 09:57 Depression Screening Interpretation: Negative Thrive Assessment: Date of Thrive Assessment Date Thrive assessed 01/10/22 09/19/22 09:57 Const Other: Alert oriented x3, no acute cardiorespiratory distress noted, ambulatory with normal gait HENMT Mouth: Normal oral and palatal mucosa present, oropharynx normal and moist mucous membranes Neck Other: Supple, full range of motion noted, no lymphadenopathy, thyroid gland nonpalpable Resp Auscultation: clear to auscultation bilaterally Cardio Other: S1-S2 present regular rate noted GI Other: Normal bowel sounds, soft, nontender, no mass palpated Skin General skin exam: no rashes or lesions noted Neuro General: gait normal, tone normal, moves all extremities, Normal light touch and pain sensation, no focal motor deficits, CN's II-XI intact bilaterally and normal sensation to monofilament Extrem General: Yes full ROM, Yes no clubbing, cyanosis or edema and Yes normal gait Coding Level of Care Code Est Pt Prev Care >65y(07295) Diagnoses Diabetes mellitus with hyperglycemia, without long-term current use of insulin E11.65 Mild intermittent asthma in adult without complication J45.20 Depression F32.9 Osteopenia after menopause M85.80 Coronary artery disease involving [place] coronary artery I25.10 PAF (paroxysmal atrial fibrillation) I48.0 Essential hypertension I10 Hypertension type: essential hypertension Refused pneumococcal vaccination Z28.21 Dyslipidemia E78.5 Annual visit for general adult medical examination with abnormal findings Z00.01 Advanced directives, counseling/discussion Z71.89
[2022-09-19 09:52] VITALS: BP 130/64; PULSE 83; O2SAT 98; BMI 25.4
== END 2022-09-19 11:01 | disposition home or self-care (01) ==
LOC: HO.HMGC 09:30
PROVIDERS: PCP Internal Medicine; Visit Provider Internal Medicine
DX: E11.65 Type 2 diabetes mellitus with hyperglycemia (principal); J45.20 Mild intermittent asthma, uncomplicated; F32.9 Major depressive disorder, single episode, unspecified; M85.80 Other specified disorders of bone density and structure, unspecified site; I25.10 Atherosclerotic heart disease of native coronary artery without angina pectoris; I48.0 Paroxysmal atrial fibrillation; I10 Essential (primary) hypertension; Z28.21 Immunization not carried out because of patient refusal; E78.5 Hyperlipidemia, unspecified; Z00.01 Encounter for general adult medical examination with abnormal findings; Z71.89 Other specified counseling
CPT/HCPCS: 99499

== ENCOUNTER 2023-01-23 10:57 | Outpatient (REF) | payer OTHER, SELFPAY ==
[2023-01-23 13:48] LABS: MANUAL DIFF FLAG NO
[2023-01-23 14:05] LABS: Basophils Percent Auto 0.5 % (0-2); Eosinophils Absolute Auto 0.2 X10*3/uL (0.0-0.4); Eosinophils Percent Auto 3.4 % (0-4); Hematocrit 42.1 % (37.0-47.0); Hemoglobin 13.8 g/dl (12.0-16.0); Imm Gran Abs Auto 0.01 X10*3/uL (0.00-0.03); Imm Gran Pct Auto 0.2 % (0.0-0.4); Lymphocytes Absolute Auto 1.5 X10*3/uL (1.2-4.9); Lymphocytes Percent Auto 32.8 % (20-40); Mean Corpuscular HGB Conc 32.8 g/dl (31.0-35.0); Mean Corpuscular Hemoglobin 30.2 pg (27.0-33.0); Mean Corpuscular Volume 92.1 fL (80.0-98.0); Mean Platelet Volume 11.7 fL (9.4-12.3); Monocytes Absolute Auto 0.5 X10*3/uL (0.1-1.2); Monocytes Percent Auto 10.2 % (2-11); Neutrophils Absolute Auto 2.3 x10*3/uL (2.0-8.3); Neutrophils Percent Auto 52.9 % (45-73); Platelet Count 225 X10*3/uL (160-400); Red Blood Count 4.57 X10*6/uL (4.20-5.50); Red Cell Distribution Width 11.6 % (11.0-16.0); White Blood Count 4.4 X10*3/uL (4.8-10.8)
[2023-01-23 14:12] LABS: Estimated Average Glucose 209 mg/dL; Hemoglobin A1c % 8.9 %
[2023-01-23 14:23] LABS: Alanine Aminotransferase 37 U/L (0-31); Anion Gap 14 (12-20); Aspartate Amino Transferase 25 U/L (5-31); Blood Urea Nitrogen 23 mg/dL (9-16); Calcium 9.8 mg/dL (8.4-10.2); Carbon Dioxide 29 mmol/L (22-29); Chloride 101 mmol/L (96-108); Cholesterol 167 mg/dL; Estimated Glomerular Filt Rate > 60; Glucose Fasting 186 mg/dL (60-99); HDL Cholesterol 51 mg/dL; LDL Cholesterol Calculated 97 mg/dl; Potassium 4.7 mmol/L (3.3-5.1); Sodium 139 mmol/L (135-145); Triglycerides 95 mg/dL
[2023-01-23 14:37] LABS: Vitamin D 25-OH Total 39.7 ng/mL (>30)
[2023-01-23 14:56] LABS: Creatinine Urine 88.78 mg/dL; Microalbum/Creatinine Ratio Ur 37.1 ug/mg cr
== END 2023-01-23 10:58 | disposition home or self-care (01) ==
LOC: HO.HMGCLDS 10:57
PROVIDERS: PCP Internal Medicine; Visit Provider Internal Medicine
DX: E11.65 Type 2 diabetes mellitus with hyperglycemia (principal); E78.5 Hyperlipidemia, unspecified; F32.9 Major depressive disorder, single episode, unspecified; I10 Essential (primary) hypertension; I25.10 Atherosclerotic heart disease of native coronary artery without angina pectoris; I48.0 Paroxysmal atrial fibrillation; M85.80 Other specified disorders of bone density and structure, unspecified site; Z28.21 Immunization not carried out because of patient refusal
CPT/HCPCS: 36415; 80048; 80061; 82043; 82306; 83036; 84450; 84460; 85025

== ENCOUNTER → 2023-04-09 09:08 | Outpatient (BNVA) | payer OTHER, SELFPAY | PROVIDERS: PCP Internal Medicine; Visit Provider Dietitian, Registered | DX: E11.29 Type 2 diabetes mellitus with other diabetic kidney complication (principal); R80.9 Proteinuria, unspecified; Z71.3 Dietary counseling and surveillance | CPT/HCPCS: 97803 ==

== ENCOUNTER 2023-04-25 12:08 | Outpatient (REF) | payer OTHER, SELFPAY ==
[2023-04-25 14:22] LABS: Alanine Aminotransferase 17 U/L (0-31); Anion Gap 11 (12-20); Aspartate Amino Transferase 18 U/L (5-31); Blood Urea Nitrogen 21 mg/dL (9-16); Calcium 9.8 mg/dL (8.4-10.2); Carbon Dioxide 29 mmol/L (22-29); Chloride 103 mmol/L (96-108); Cholesterol 315 mg/dL; Estimated Glomerular Filt Rate > 60; Glucose Fasting 159 mg/dL (60-99); HDL Cholesterol 53 mg/dL; LDL Cholesterol Calculated 234 mg/dl; Potassium 4.5 mmol/L (3.3-5.1); Sodium 138 mmol/L (135-145); Triglycerides 144 mg/dL
[2023-04-25 15:13] LABS: Creatinine Urine 98.53 mg/dL; Microalbum/Creatinine Ratio Ur 36.5 ug/mg cr
[2023-04-25 17:14] LABS: Estimated Average Glucose 169 mg/dL; Hemoglobin A1c % 7.5 %
[2023-04-27 02:34] LABS: LDL Cholesterol Direct 244 mg/dL (<100)
== END 2023-04-25 12:09 | disposition home or self-care (01) ==
LOC: HO.HMGCLDS 12:08
PROVIDERS: PCP Internal Medicine; Visit Provider Internal Medicine
DX: E11.29 Type 2 diabetes mellitus with other diabetic kidney complication (principal); E11.65 Type 2 diabetes mellitus with hyperglycemia; E78.5 Hyperlipidemia, unspecified; I10 Essential (primary) hypertension; R80.9 Proteinuria, unspecified
CPT/HCPCS: 36415; 80048; 80061; 82043; 83036; 83721; 84450; 84460

== ENCOUNTER 2023-07-08 09:16 | Outpatient (AMB) | payer OTHER, SELFPAY ==
--- NOTE | 2023-07-08 09:37 | MHC.AMNUTRGE ---
Intake VS Expanded 07/08/23 10:02 Height 4 ft 11 in Weight 134 lb 14.766 oz BMI 27.2 Intake Visit Reasons: dm Allergies atorvastatin [From LIPITOR] Adverse Reaction (Intermediate, Verified 04/29/23 11:19) STOMACH ACHE oxycodone [From OXYCONTIN] Adverse Reaction (Intermediate, Verified 04/29/23 11:19) SENSORY HALLUCINATIONS sulfamethoxazole [From Bactrim] Adverse Reaction (Intermediate, Verified 04/29/23 11:19) chills HPI Nutrition Presentation Details Pt presents for MNT for t2DM Pt reports having increased appetite in the evening. typical meal intake 11 am : 2 eggs with wheat toast coffee with diet sugar snack whole milk with chocolate milk 4-5 : rice/beans , beef tail 8pm: same meal as dinner Exercise: daily life activities ETOH: occ Most Recent Diabetes Results: Microalb/Creat Ratio 36.5 ug/mg cr 04/25/23 Cholesterol 315 mg/dL 04/25/23 HDL Cholesterol 53 mg/dL 04/25/23 Triglycerides 144 mg/dL 04/25/23 Creatinine 0.68 mg/dL (0.5-1.4) 04/25/23 Blood Urea Nitrogen 21 mg/dL (9-16) H 04/25/23 Sodium 138 mmol/L (135-145) 04/25/23 Potassium 4.5 mmol/L (3.3-5.1) 04/25/23 Chloride 103 mmol/L (96-108) 04/25/23 Carbon Dioxide 29 mmol/L (22-29) 04/25/23 Calcium 9.8 mg/dL (8.4-10.2) 04/25/23 AST 18 U/L (5-31) 04/25/23 ALT 17 U/L (0-31) 04/25/23 FORMERLY [facility], [facility] Medical History Anxiety as acute reaction to gross stress Constipation Coronary artery disease involving [place] coronary artery COVID-19 vaccination refused Depression Diabetes mellitus with hyperglycemia, without long-term current use of insulin Diabetes mellitus with microalbuminuria, without long-term current use of insulin Dyslipidemia Facial skin lesion History of depression History of ST elevation myocardial infarction (STEMI) Hives Hypertension Lumbago Mild intermittent asthma in adult without complication Muscle spasm OAB (overactive bladder) Osteoarthritis, knee Osteopenia after menopause Overweight Paresthesia of right leg Recurrent cough Refused influenza vaccine Refused pneumococcal vaccination Varicose veins of right lower extremity Surgical History History of section History of heart artery stent Hx of myomectomy S/P left rotator cuff repair Family History Father No problems noted. Mother No problems noted. 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 Current occupational exposures/hazards: No Cognitive needs: No Hearing needs: No Vision needs: Yes Female Reproductive History Menstrual Age of Menarche: 12 Assessment & Plan Assessment & Plan (1) Diabetes mellitus with microalbuminuria, without long-term current use of insulin: Code(s): E11.29 - Type 2 diabetes mellitus with other diabetic kidney complication; R80.9 - Proteinuria, unspecified Qualifiers: Diabetes mellitus type: type 2 Qualified Code(s): E11.29 - Type 2 diabetes mellitus with other diabetic kidney complication; R80.9 - Proteinuria, unspecified Plan Reinforce Diabetic diet concepts, reducing fat intake , saturated fats following healthy plate method Used wt : 55 kg Est kcal needs as per MSJ: 1386 est protein needs as per 0.8 -1.0 g/kg bw: 44-55 g/d est fluid needs as per 25 ml/kg bw: 1375 ml/d Rec fiber: 25 g/d Rec Na: <1500 mg/d Recommend fiber intake : 8-10 g per day and gradually increase to 25-28 g per day as tolerated Recommend sodium intake per day : less than 2000 mg Educated patient on: ( R = reviewed V = verbalizes understanding N/R = needs review N/A = not applicable Food sources of carbohydrate, adequate serving sizes and its role in various health conditions: R V Differences between complex carbohydrates a simple carbohydrates, role of fiber in diet: R V Differences between types of fats and role in diet (mono on saturated fat fatty acids, saturated fatty acids, trans fats): R Food sources of sodium in salt and healthy modifications for heart health in kidney health: NR Healthy plate method concept: R V Physical activity: Benefits a precaution: R V Dietary prevention of Hyperglycemia: R V Patient Instructions: Reduce on high fat foods (pork feet /tails/visible fats), choose poultry, fish instead 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
[2023-07-08 10:02] VITALS: BMI 27.2
== END 2023-07-08 10:22 | disposition home or self-care (01) ==
PROVIDERS: PCP Internal Medicine; Visit Provider Dietitian, Registered
DX: E11.29 Type 2 diabetes mellitus with other diabetic kidney complication (principal); R80.9 Proteinuria, unspecified

== ENCOUNTER → 2023-07-08 09:16 | Outpatient (BNVA) | payer OTHER, SELFPAY | PROVIDERS: PCP Internal Medicine; Visit Provider Dietitian, Registered | DX: E11.29 Type 2 diabetes mellitus with other diabetic kidney complication (principal); R80.9 Proteinuria, unspecified; Z71.3 Dietary counseling and surveillance | CPT/HCPCS: 97803 ==

== ENCOUNTER 2023-07-22 10:36 | Outpatient (REF) | payer OTHER, SELFPAY ==
[2023-07-22 13:54] LABS: Alanine Aminotransferase 18 U/L (0-31); Anion Gap 13 (12-20); Aspartate Amino Transferase 20 U/L (5-31); Blood Urea Nitrogen 16 mg/dL (9-16); Calcium 10.1 mg/dL (8.4-10.2); Carbon Dioxide 27 mmol/L (22-29); Chloride 105 mmol/L (96-108); Cholesterol 182 mg/dL (<200); Estimated Glomerular Filt Rate > 60; Glucose Fasting 151 mg/dL (60-99); HDL Cholesterol 55 mg/dL (>40); LDL Cholesterol Calculated 105 mg/dL (<100); Potassium 4.6 mmol/L (3.3-5.1); Sodium 140 mmol/L (135-145); Triglycerides 114 mg/dL (<150)
[2023-07-22 14:16] LABS: Estimated Average Glucose 151 mg/dL; Hemoglobin A1c % 6.9 % (<6.0)
[2023-07-22 14:28] LABS: Creatinine Urine 78.16 mg/dL; Microalbum/Creatinine Ratio Ur 12.7 ug/mg cr (<30)
== END 2023-07-22 10:37 | disposition home or self-care (01) ==
LOC: HO.HMGCLDS 10:36
PROVIDERS: PCP Internal Medicine; Visit Provider Internal Medicine
DX: E11.65 Type 2 diabetes mellitus with hyperglycemia (principal); E11.29 Type 2 diabetes mellitus with other diabetic kidney complication; E78.5 Hyperlipidemia, unspecified; R80.9 Proteinuria, unspecified
CPT/HCPCS: 36415; 80048; 80061; 82043; 82570; 83036; 84450; 84460

== ENCOUNTER 2023-07-29 10:31 | Outpatient (AMB) | payer OTHER, SELFPAY ==
--- NOTE | 2023-07-29 10:44 | MHC.PC.OV ---
Vital Signs 07/29/23 11:30 Height 4 ft 11 in Weight 135 lb BMI 27.3 BP 130/76 Blood Pressure Location Rt brachial Position Sitting Pulse 68 Pulse Source Pulse Oximeter Pulse Oximetry (%) 97 Oxygen Delivery Method Room Air Intake Visit Reasons: 3m follow up dm Intake Note: patient is here today for her 3 month f/u Allergies atorvastatin [From LIPITOR] Adverse Reaction (Intermediate, Verified 07/30/23 03:18) STOMACH ACHE oxycodone [From OXYCONTIN] Adverse Reaction (Intermediate, Verified 07/30/23 03:18) SENSORY HALLUCINATIONS sulfamethoxazole [From Bactrim] Adverse Reaction (Intermediate, Verified 07/30/23 03:18) chills Medication List - Last Reconciled 07/30/23 by Carri Kohli MD acetaminophen 325 mg PO QID PRN apixaban 5 mg PO BID blood sugar diagnostic (FreeStyle Lite Strips) 1 strip miscellaneous BID cholecalciferol (vitamin D3) 50 mcg PO DAILY cyclobenzaprine 10 mg PO BEDTIME PRN dapagliflozin propanediol (Farxiga) 10 mg PO QAM docusate sodium 100 mg PO DAILY ezetimibe 10 mg PO DAILY fluticasone propionate 110 mcg/actuation 1 puff inhalation Q12H hydroxyzine HCl 10 mg PO .qd PRN lancets (FreeStyle Lancets) As directed lisinopril 5 mg PO DAILY metoprolol succinate ER 200 mg PO DAILY nitroglycerin 0 mg sublingual repaglinide 2 mg PO TID rosuvastatin 5 mg PO DAILY sitagliptin phosphate (Januvia) 100 mg PO DAILY Tobacco use date assessed: 07/29/23 Fall risk assessment: No Falls in past year Last assessed Fall Risk: 07/29/23 Dental Screening Dental Screen Date: 07/29/23 Did you have a dental visit in the last 12 months?: Yes Did you have a dental problem in the last 6 months where you did not have access to dental care?: Yes Was dental information given to patient?: Patient has dentist HPI 3m follow up dm HPI Details 68-year-old lady here today for follow-up on her hypertension, diabetes mellitus and dyslipidemia. Been compliant taking her medications and has changed her diet, eating less carbs, but has not been getting any regular exercise. The only exercise she gets is walking her dog. [facility] Medical History (Updated 07/29/23 @ 12:08 by Carri Kohli MD) Oropharyngeal dysphagia Hives COVID-19 vaccination refused Refused influenza vaccine Diabetes mellitus with hyperglycemia, without long-term current use of insulin Anxiety as acute reaction to gross stress Lumbago Mild intermittent asthma in adult without complication OAB (overactive bladder) Recurrent cough Constipation Muscle spasm Facial skin lesion Depression Paresthesia of right leg Diabetes mellitus with microalbuminuria, without long-term current use of insulin Osteoarthritis, knee History of depression Osteopenia after menopause Overweight Varicose veins of right lower extremity History of ST elevation myocardial infarction (STEMI) 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 Hypertension Refused pneumococcal vaccination Dyslipidemia Surgical History History of section Hx of myomectomy S/P left rotator cuff repair History of heart artery stent Family History Father No problems noted. Mother No problems noted. 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 How often do you have a drink containing alcohol?: Monthly or less 2. How many drinks containing alcohol do you have on a typical day when you are drinking?: 1 or 2 Total Score: 1 CHAPARRO-7 AMB Questionnaire CHAPARRO-7 Date CHAPARRO - 7 assessed: 04/29/23 Source: Developed by Drs. Cabrera Draper, Shanae Hood, Nathaniel Solorio and colleagues, with an educational zeinab from [employer]. Review of Systems Const Denies fatigue, Denies fever(s), Denies headache(s) and Denies weakness Eyes Denies change in vision ENT Denies dizziness, Denies headache(s), Denies nasal congestion, Denies nasal discharge and Denies sore throat Card Denies chest pain, Denies lightheadedness, Denies palpitations and Denies dyspnea Resp Denies cough and Denies dyspnea GI Denies abdominal pain, Denies change in bowel habits and Denies heartburn Denies urinary frequency, Denies dysuria and Denies urinary urgency Musc Reports stiffness Neuro Denies dizziness, Denies headache(s) and Denies weakness Psych Reports no additional complaints Endo Denies fatigue, Denies polydipsia, Denies polyuria and Denies palpitations Physical exam (Primary Care) Vital Signs: Last Vital Signs Pulse 68 07/29/23 11:30 BP 130/76 07/29/23 11:30 Pulse Ox 97 07/29/23 11:30 Oxygen Delivery Method Room Air 07/29/23 11:30 BMI result Body Mass Index 27.3 Tobacco/Smoking Status: Tobacco use Status Tobacco use date assessed 07/29/23 07/29/23 11:38 Patient Tobacco Use Status Never used Tobacco 07/29/23 10:44 e-Cigarette/Vaping Use Never Used 07/29/23 10:44 Thrive Assessment: Date of Thrive Assessment Date Thrive assessed 04/29/23 07/29/23 10:44 Const Other: Alert oriented x3, no acute cardiorespiratory distress noted, ambulatory with normal gait General: comfortable, no acute distress, alert and Physically active Nutritional Appearance: overweight Orientation/consciousness: patient oriented x3 HENMT Face and sinus: Yes face symmetric Mouth: Normal oral and palatal mucosa present, oropharynx normal and moist mucous membranes Eyes General: appearance normal, both eyes and all related structures Neck Other: Supple, full range of motion noted, no lymphadenopathy, thyroid gland nonpalpable Resp Effort & Inspection: normal respiratory effort and able to speak in complete sentences Auscultation: clear to auscultation bilaterally Cardio Palpation: normal PMI Rate: regular rate Rhythm: regular rhythm Heart sounds: S1 normal heart sound present and S2 normal heart sound present GI Other: Normal bowel sounds, soft, nontender, no mass palpated Palpation (GI): Soft to palpation, nontender, no guarding and no masses Auscultation: normal bowel sounds Skin General skin exam: no rashes or lesions noted Neuro General: patient oriented x3, gait normal, tone normal, moves all extremities, Normal light touch and pain sensation, no focal motor deficits, CN's II-XI intact bilaterally and normal sensation to monofilament Extrem General: Yes full ROM, Yes no clubbing, cyanosis or edema and Yes normal gait Results Reviewed Results Reviewed: NTERED: 07/22/23-1043 OTHR DANIELS: ORDERED: Met Prof Fast, AST, ALT, Lipid Panel Test Result Flag Reference Site Sodium 140 135-145 mmol/L Potassium 4.6 3.3-5.1 mmol/L CL 105 96-108 mmol/L CO2 27 22-29 mmol/L Gap 13 12-20 BUN 16 9-16 mg/dL Creat 0.71 0.5-1.4 mg/dL EGFR > 60 NOTE: For -[place] individuals, multiply the result by 1.210. Chronic Kidney Disease: Estimated GFR < 60 mL/min/1.73m2 Severe Kidney Disease: Estimated GFR < 15 mL/min/1.73m2 FBS 151 H 60-99 mg/dL A fasting glucose of 126 mg/dl or greater on more than one occasion is considered diagnostic of diabetes. CA 10.1 8.4-10.2 mg/dL AST (GOT) 20 5-31 U/L ALT (GPT) 18 0-31 U/L Triglyceride 114 <150 mg/dL Desirable Triglyceride: less than 150 mg/dL Borderline High Triglyceride 150-199 mg/dL High Triglyceride: 200-499 mg/dL Very High Triglyceride: greater than or equal to 5OO mg/dL Cholesterol 182 <200 mg/dL Desirable Cholesterol: less than 200 mg/dL Borderline High Cholesterol: 200-239 mg/dL High Cholesterol: greater than 239 mg/dL LDL Calculated 105 H <100 mg/dL Desirable LDL: less than 100 mg/dL Near Optimal/Above Optimal LDL: 110-129 mg/dL Borderline High LDL: 130-159 mg/dL High LDL: 160-189 mg/dL Very High LDL: greater than or equal to 190 mg/dL HDL 55 >40 mg/dL Desirable HDL: greater than 40 mg/dL Note: This HDL assay may give artificially low results in patients with liver disease. Laboratory Tests 04/25/23 04/25/23 07/22/23 12:11 12:11 10:45 Estimat Average Glucose 169 Hemoglobin A1c % 7.5 6.9 H 07/22/23 10:45 Estimat Average Glucose 151 Hemoglobin A1c % Assessment and Plan Assessment & Plan (1) Diabetes mellitus with microalbuminuria, without long-term current use of insulin: Code(s): E11.29 - Type 2 diabetes mellitus with other diabetic kidney complication; R80.9 - Proteinuria, unspecified Qualifiers: Diabetes mellitus type: type 2 Qualified Code(s): E11.29 - Type 2 diabetes mellitus with other diabetic kidney complication; R80.9 - Proteinuria, unspecified Plan: Recent lab results reviewed with patient, with sugar and hemoglobin A1c better at 6.9%. Continue with dapagliflozin 10 mg in the morning, and repaglinide 2 mg 1 tablet 3 times a day and sitagliptin 100 mg once a day. continue to check fasting blood sugar at home, maintain log and bring to next appointment for review. Reinforced diabetic diet and regular exercise with patient. Counseled regarding importance of yearly diabetes retinopathy screening. Patient advised to inspect feet daily, for any signs of injury, callus or infection. Compliance with diet and regular exercise again stressed. Blood pressure goal is less than 130/80, goal LDL is less than 100 and goal hemoglobin A1c is less than 7% follow-up appointment made in-3--months, after fasting labs done. (2) Hypertension: Code(s): I10 - Essential (primary) hypertension Qualifiers: Hypertension type: essential hypertension Qualified Code(s): I10 - Essential (primary) hypertension Plan: Blood pressure stable and controlled on lisinopril 5 mg once a day and metoprolol succinate to 100 mg once a day (3) Dyslipidemia: Code(s): E78.5 - Hyperlipidemia, unspecified Plan: Reviewed recent fasting lipid profile with patient with marked improvement in LDL cholesterol, will continue rosuvastatin 5 mg daily. Continue with adherence to low-cholesterol diet and regular exercise, at least 30 minutes 3 to 4 times a week. Advised patient to make healthy food choices, eat more fruits, vegetables, whole grains, wild caught fish and low-fat dairy. Limit amount of meat and fried or fatty food products, as well as processed foods and fast foods. Follow-up scheduled with repeat fasting lipid panel in 3 months. Orders: Orders Hemoglobin A1c 10/12/23 E11.29 - Type 2 diabetes mellitus with other diabetic kidney complication, E78.5 - Hyperlipidemia, unspecified, I10 - Essential (primary) hypertension, R80.9 - Proteinuria, unspecified Aspartate Amino Transferase 10/12/23 - Type 2 diabetes mellitus with other diabetic kidney complication, E78.5 - Hyperlipidemia, unspecified, I10 - Essential (primary) hypertension, R80.9 - Proteinuria, unspecified Alanine Aminotransferase 10/12/23 - Type 2 diabetes mellitus with other diabetic kidney complication, E78.5 - Hyperlipidemia, unspecified, I10 - Essential (primary) hypertension, R80.9 - Proteinuria, unspecified Basic Metabolic Panel Fasting 10/12/23 - Type 2 diabetes mellitus with other diabetic kidney complication, E78.5 - Hyperlipidemia, unspecified, I10 - Essential (primary) hypertension, R80.9 - Proteinuria, unspecified Lipid Panel 10/12/23 - Type 2 diabetes mellitus with other diabetic kidney complication, E78.5 - Hyperlipidemia, unspecified, I10 - Essential (primary) hypertension, R80.9 - Proteinuria, unspecified Coding Level of Care Code Est Pt Level 4 (33266) Diagnoses Type 2 diabetes mellitus with microalbuminuria, without long-term current use of insulin ; R80.9 Diabetes mellitus type: type 2 Essential hypertension I10 Hypertension type: essential hypertension Dyslipidemia E78.5
[2023-07-29 11:30] VITALS: BP 130/76; PULSE 68; O2SAT 97; BMI 27.3
== END 2023-07-29 12:15 | disposition home or self-care (01) ==
PROVIDERS: PCP Internal Medicine; Visit Provider Internal Medicine
DX: E11.29 Type 2 diabetes mellitus with other diabetic kidney complication (principal); R80.9 Proteinuria, unspecified; I10 Essential (primary) hypertension; E78.5 Hyperlipidemia, unspecified
CPT/HCPCS: 99214

== ENCOUNTER 2023-08-12 13:44 | Outpatient (AMB) | payer OTHER, SELFPAY ==
--- NOTE | 2023-08-12 13:46 | MHC.PC.OV ---
Vital Signs 08/12/23 13:51 Height 4 ft 11 in Weight 136 lb BMI 27.5 BP 130/72 Blood Pressure Location Lt brachial Position Sitting Pulse 70 Pulse Source Pulse Oximeter Pulse Oximetry (%) 97 Oxygen Delivery Method Room Air Intake Visit Reasons: ER C Rt foot cellulitis Intake Note: patient is here today for her ER C RT foot cellulitis Allergies atorvastatin [From LIPITOR] Adverse Reaction (Intermediate, Verified 08/12/23 14:12) STOMACH ACHE oxycodone [From OXYCONTIN] Adverse Reaction (Intermediate, Verified 08/12/23 14:12) SENSORY HALLUCINATIONS sulfamethoxazole [From Bactrim] Adverse Reaction (Intermediate, Verified 08/12/23 14:12) chills Medication List - Last Reconciled 08/12/23 by Carri Kohli MD acetaminophen 325 mg PO QID PRN apixaban 5 mg PO BID blood sugar diagnostic (FreeStyle Lite Strips) 1 strip miscellaneous BID cholecalciferol (vitamin D3) 50 mcg PO DAILY cyclobenzaprine 10 mg PO BEDTIME PRN dapagliflozin propanediol (Farxiga) 10 mg PO QAM docusate sodium 100 mg PO DAILY ezetimibe 10 mg PO DAILY fluticasone propionate 110 mcg/actuation 1 puff inhalation Q12H hydroxyzine HCl 10 mg PO .qd PRN lancets (FreeStyle Lancets) As directed lisinopril 5 mg PO DAILY metoprolol succinate ER 200 mg PO DAILY nitroglycerin 0 mg sublingual repaglinide 2 mg PO TID rosuvastatin 5 mg PO DAILY sitagliptin phosphate (Januvia) 100 mg PO DAILY Tobacco use date assessed: 08/12/23 Fall risk assessment: No Falls in past year Last assessed Fall Risk: 08/12/23 Dental Screening Dental Screen Date: 08/12/23 Did you have a dental visit in the last 12 months?: Yes Did you have a dental problem in the last 6 months where you did not have access to dental care?: No Was dental information given to patient?: Patient has dentist HPI ER C Rt foot cellulitis HPI Details 68-year-old lady with history of diabetes mellitus, osteopenia, coronary artery disease, paroxysmal atrial fibrillation on apixaban, varicose veins in both lower extremities, and has dyslipidemia here today for follow-up after recent ER visit at [facility] 08/01/2023 complaining of a traumatic right foot bruising, and pain in her right calf. Prior to that visit, she was seen by her office clerk assistant , and was advised to go to the ER for further evaluation. At the ED her vital signs were stable, labs obtained for CBC, and BMP and ultrasound to rule out DVT came back negative. Right foot x-ray also was unremarkable. She was discharged with a diagnosis of cellulitis and placed on cephalexin , with resolution of lesion on right foot. Patient only complaining of occasional itching over site FORMERLY [facility] Medical History Oropharyngeal dysphagia Hives COVID-19 vaccination refused Refused influenza vaccine Diabetes mellitus with hyperglycemia, without long-term current use of insulin Anxiety as acute reaction to gross stress Lumbago Mild intermittent asthma in adult without complication OAB (overactive bladder) Recurrent cough Constipation Muscle spasm Facial skin lesion Depression Paresthesia of right leg Diabetes mellitus with microalbuminuria, without long-term current use of insulin Osteoarthritis, knee History of depression Osteopenia after menopause Overweight Varicose veins of right lower extremity History of ST elevation myocardial infarction (STEMI) Coronary artery disease involving [place] coronary artery Hypertension Refused pneumococcal vaccination Dyslipidemia Surgical History History of section Hx of myomectomy S/P left rotator cuff repair History of heart artery stent Family History Father No problems noted. Mother No problems noted. 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 How often do you have a drink containing alcohol?: Never Total Score: 0 CHAPARRO-7 AMB Questionnaire CHAPARRO-7 Date CHAPARRO - 7 assessed: 04/29/23 Source: Developed by Drs. Cabrera Draper, Shanae Hood, Nathaniel Solorio and colleagues, with an educational zeinab from [employer]. Review of Systems Const All systems reviewed & are unremarkable except as noted in HPI and below Physical exam (Primary Care) Vital Signs: Last Vital Signs Pulse 70 08/12/23 13:51 BP 130/72 08/12/23 13:51 Pulse Ox 97 08/12/23 13:51 Oxygen Delivery Method Room Air 08/12/23 13:51 BMI result Body Mass Index 27.5 Tobacco/Smoking Status: Tobacco use Status Tobacco use date assessed 08/12/23 08/12/23 13:53 Patient Tobacco Use Status Never used Tobacco 08/12/23 13:53 e-Cigarette/Vaping Use Never Used 08/12/23 13:53 Thrive Assessment: Date of Thrive Assessment Date Thrive assessed 04/29/23 08/12/23 13:53 Const Other: Alert oriented x3, no acute cardiorespiratory distress noted, ambulatory with normal gait General: no acute distress, alert and Physically active Nutritional Appearance: overweight Skin General skin exam: no rashes or lesions noted Extrem General: Yes full ROM, Yes no clubbing, cyanosis or edema and Yes normal gait Assessment and Plan Assessment & Plan (1) History of cellulitis: Code(s): Z87.2 - Personal history of diseases of the skin and subcutaneous tissue Plan: Complete resolution of cellulitis on dorsal aspect of right foot. Complaining of occasional itchy over site, advised to apply diphenhydramine cream or spray to affected area as needed Coding Level of Care Code Est Pt Level 3 (90422) Diagnoses History of cellulitis Z87.2
[2023-08-12 13:51] VITALS: BP 130/72; PULSE 70; O2SAT 97; BMI 27.5
== END 2023-08-12 14:54 | disposition home or self-care (01) ==
PROVIDERS: PCP Internal Medicine; Visit Provider Internal Medicine
DX: Z87.2 Personal history of diseases of the skin and subcutaneous tissue (principal)
CPT/HCPCS: 99213

== ENCOUNTER 2023-10-07 09:35 | Outpatient (AMB) | payer OTHER, SELFPAY ==
[2023-10-07 09:52] VITALS: BMI 27.9
--- NOTE | 2023-10-07 09:52 | A.OFFVIS_ITS ---
Intake VS Expanded 10/07/23 09:52 Height 4 ft 11 in Weight 138 lb 3.677 oz BMI 27.9 Intake Visit Reasons: DM Allergies atorvastatin [From LIPITOR] Adverse Reaction (Intermediate, Verified 08/12/23 14:12) STOMACH ACHE oxycodone [From OXYCONTIN] Adverse Reaction (Intermediate, Verified 08/12/23 14:12) SENSORY HALLUCINATIONS sulfamethoxazole [From Bactrim] Adverse Reaction (Intermediate, Verified 08/12/23 14:12) chills Medication List - Last Reconciled 10/07/[address], LDN acetaminophen 325 mg PO QID PRN apixaban 5 mg PO BID blood sugar diagnostic (FreeStyle Lite Strips) 1 strip miscellaneous BID cholecalciferol (vitamin D3) 50 mcg PO DAILY cyclobenzaprine 10 mg PO BEDTIME PRN dapagliflozin propanediol (Farxiga) 10 mg PO QAM docusate sodium 100 mg PO DAILY ezetimibe 10 mg PO DAILY fluticasone propionate 110 mcg/actuation 1 puff inhalation Q12H hydroxyzine HCl 10 mg PO .qd PRN lancets (FreeStyle Lancets) As directed lisinopril 5 mg PO DAILY metoprolol succinate ER 200 mg PO DAILY multivitamin 1 tab PO DAILY nitroglycerin 0 mg sublingual repaglinide 2 mg PO TID rosuvastatin 5 mg PO DAILY sitagliptin phosphate (Januvia) 100 mg PO DAILY HPI Nutrition Presentation Details Pt presents for MNT for T2DM Pt reports noticing increased appetite and choosing larger portions of foods thus continue weight gain. Pt did not bring glucometer to this appt Most Recent Diabetes Results: Microalb/Creat Ratio 12.7 ug/mg cr (<30) 07/22/23 Cholesterol 182 mg/dL (<200) 07/22/23 HDL Cholesterol 55 mg/dL (>40) 07/22/23 Triglycerides 114 mg/dL (<150) 07/22/23 Creatinine 0.71 mg/dL (0.5-1.4) 07/22/23 Blood Urea Nitrogen 16 mg/dL (9-16) 07/22/23 Sodium 140 mmol/L (135-145) 07/22/23 Potassium 4.6 mmol/L (3.3-5.1) 07/22/23 Chloride 105 mmol/L (96-108) 07/22/23 Carbon Dioxide 27 mmol/L (22-29) 07/22/23 Calcium 10.1 mg/dL (8.4-10.2) 07/22/23 AST 20 U/L (5-31) 07/22/23 ALT 18 U/L (0-31) 07/22/23 [facility] Medical History Oropharyngeal dysphagia Hives COVID-19 vaccination refused Refused influenza vaccine Diabetes mellitus with hyperglycemia, without long-term current use of insulin Anxiety as acute reaction to gross stress Lumbago Mild intermittent asthma in adult without complication OAB (overactive bladder) Recurrent cough Constipation Muscle spasm Facial skin lesion Depression Paresthesia of right leg Diabetes mellitus with microalbuminuria, without long-term current use of insulin Osteoarthritis, knee History of depression Osteopenia after menopause Overweight Varicose veins of right lower extremity History of ST elevation myocardial infarction (STEMI) Coronary artery disease involving [place] coronary artery Hypertension Refused pneumococcal vaccination Dyslipidemia Surgical History History of section Hx of myomectomy S/P left rotator cuff repair History of heart artery stent Family History Father No problems noted. Mother No problems noted. 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 Current occupational exposures/hazards: No Cognitive needs: No Hearing needs: No Vision needs: Yes Female Reproductive History Menstrual Age of Menarche: 12 Assessment & Plan Assessment & Plan (1) Diabetes mellitus with microalbuminuria, without long-term current use of insulin: Code(s): E11.29 - Type 2 diabetes mellitus with other diabetic kidney complication; R80.9 - Proteinuria, unspecified Qualifiers: Diabetes mellitus type: type 2 Qualified Code(s): E11.29 - Type 2 diabetes mellitus with other diabetic kidney complication; R80.9 - Proteinuria, unspecified Plan Reinforce reducing portion sizes to promote weight loss ( 250-500 calories) and glucose control following healthy plate method Used wt : (62.7 kg on 10/2023) Est kcal needs as per MSJ: 1386 (based on 55 kg, wt from 10/2022) est protein needs as per 0.8 -1.0 g/kg bw: 44-55 g/d est fluid needs as per 25 ml/kg bw: 1375 ml/d Rec fiber: 25 g/d Rec Na: <1500 mg/d Recommend fiber intake : 8-10 g per day and gradually increase to 25-28 g per day as tolerated Recommend sodium intake per day : less than 2000 mg Educated patient on: ( R = reviewed V = verbalizes understanding N/R = needs review N/A = not applicable * Food sources of carbohydrate, adequate serving sizes and its role in various health conditions: R V * Differences between complex carbohydrates a simple carbohydrates, role of fiber in diet: R V * Differences between types of fats and role in diet (mono on saturated fat fatty acids, saturated fatty acids, trans fats): R * Food sources of sodium in salt and healthy modifications for heart health in kidney health: NR * Healthy plate method concept: R V * Physical activity: Benefits a precaution: R V * Dietary prevention of Hyperglycemia: R V Patient Instructions: Reduce on portions - switch to smaller plate Make a routine of having a vegetable salad or carrots or peppers before the meal - higher fiber foods prior to meal for satiety Keep hydrated by having water reduce on beverages with sodium (including diet sodas ) Coding Level of Care Code Nutr Indiv Subseq (43442) Diagnoses Type 2 diabetes mellitus with microalbuminuria, without long-term current use of insulin E11.29; R80.9 Diabetes mellitus type: type 2 Time Spent (min) 30
== END 2023-10-07 10:15 | disposition home or self-care (01) ==
PROVIDERS: PCP Internal Medicine; Visit Provider Dietitian, Registered
DX: E11.29 Type 2 diabetes mellitus with other diabetic kidney complication (principal); R80.9 Proteinuria, unspecified

== ENCOUNTER → 2023-10-07 09:35 | Outpatient (BNVA) | payer OTHER, SELFPAY | PROVIDERS: PCP Internal Medicine; Visit Provider Dietitian, Registered | DX: E11.29 Type 2 diabetes mellitus with other diabetic kidney complication (principal); R80.9 Proteinuria, unspecified | CPT/HCPCS: 97803 ==

== ENCOUNTER 2023-11-21 09:51 | Outpatient (REF) | payer OTHER, SELFPAY ==
--- NOTE | ~2023-11-21 | XR_ITS ---
EXAMINATION: XR LUMBOSACRAL SPINE WITH OBLIQUES XR AP PELVIS AND LEFT HIP CLINICAL INFORMATION: Pain in left hip, spondylosis without myelopathy or radiculopathy, lumbar region. COMPARISON: Lumbar spine 12/04/2017 radiographs. 01/07/2019 abdomen radiographs. TECHNIQUE: AP, both oblique, and lateral views of the lumbar spine. Lateral view of the lumbosacral junction. AP view of the pelvis. AP and lateral views of the left hip. FINDINGS: LUMBAR SPINE: Slight leftward curvature of the lumbar spine. Facet arthritis in the lower lumbar spine. Degenerative changes in the imaged lower thoracic spine. Atherosclerotic aortoiliac calcifications. Progression of advanced multilevel lumbar spondylosis with multilevel loss of disc space height, most notable at L5-S1. AP PELVIS AND LEFT HIP: Moderate degenerative changes on single AP view of the pelvis which includes the right hip. Surgical clips in the right inguinal region. LEFT HIP: Moderate degenerative changes left hip with joint space narrowing and hypertrophic change. Redemonstration of asymmetric hypertrophic change with subjacent lucency along the superolateral aspect of the left acetabulum. XR/XR lumbar spine 4V min IMPRESSION: 1. Progression of advanced multilevel lumbar spondylosis, most notable at L5-S1. 2. Facet arthritis in the lower lumbar spine. 3. Moderate degenerative changes in the left hip. 4. Correlation with clinical exam recommended to determine further management. If there is concern for fracture or other underlying pathology, MRI could be obtained for further evaluation.
--- NOTE | ~2023-11-21 | XR_ITS ---
EXAMINATION: XR LUMBOSACRAL SPINE WITH OBLIQUES XR AP PELVIS AND LEFT HIP CLINICAL INFORMATION: Pain in left hip, spondylosis without myelopathy or radiculopathy, lumbar region. COMPARISON: Lumbar spine 12/04/2017 radiographs. 01/07/2019 abdomen radiographs. TECHNIQUE: AP, both oblique, and lateral views of the lumbar spine. Lateral view of the lumbosacral junction. AP view of the pelvis. AP and lateral views of the left hip. FINDINGS: LUMBAR SPINE: Slight leftward curvature of the lumbar spine. Facet arthritis in the lower lumbar spine. Degenerative changes in the imaged lower thoracic spine. Atherosclerotic aortoiliac calcifications. Progression of advanced multilevel lumbar spondylosis with multilevel loss of disc space height, most notable at L5-S1. AP PELVIS AND LEFT HIP: Moderate degenerative changes on single AP view of the pelvis which includes the right hip. Surgical clips in the right inguinal region. LEFT HIP: Moderate degenerative changes left hip with joint space narrowing and hypertrophic change. Redemonstration of asymmetric hypertrophic change with subjacent lucency along the superolateral aspect of the left acetabulum. XR/XR hip LT w PEL1V IMPRESSION: 1. Progression of advanced multilevel lumbar spondylosis, most notable at L5-S1. 2. Facet arthritis in the lower lumbar spine. 3. Moderate degenerative changes in the left hip. 4. Correlation with clinical exam recommended to determine further management. If there is concern for fracture or other underlying pathology, MRI could be obtained for further evaluation.
== END 2023-11-21 09:52 | disposition home or self-care (01) ==
LOC: HO.XRAY 09:51
PROVIDERS: PCP Internal Medicine; Visit Provider Registered Nurse Emergency
DX: M47.816 Spondylosis without myelopathy or radiculopathy, lumbar region (principal); M25.552 Pain in left hip
CPT/HCPCS: 72110; 73502; 99202

== ENCOUNTER 2023-11-21 09:51 | Outpatient (AMB) | payer OTHER, SELFPAY ==
--- NOTE | 2023-11-21 10:02 | A.OFFVIS_ITS ---
Intake Vital Signs 3 11/21/23 10:05 Height 4 ft 11 in Weight 137 lb BMI 27.7 BP 156/74 H Blood Pressure Location Lt brachial Position Sitting Respiration 16 Pulse 74 Pulse Source Pulse Oximeter Pulse Oximetry (%) 96 Oxygen Delivery Method Room Air Intake Visit Reasons: Low back pain, unspecified/lvm Allergies atorvastatin [From LIPITOR] Adverse Reaction (Intermediate, Verified 11/21/23 10:01) STOMACH ACHE oxycodone [From OXYCONTIN] Adverse Reaction (Intermediate, Verified 11/21/23 10:01) SENSORY HALLUCINATIONS sulfamethoxazole [From Bactrim] Adverse Reaction (Intermediate, Verified 11/21/23 10:01) chills HPI HPI Comments 2 History of Present Illness0 Details Meena is a very pleasant 68 year old female who presents to the office today for evaluation and management of her chronic lower back pain. She reports suffering with this pain for her whole life but it significantly worsened after receiving her covid booster 11/20/2021. At that time she was evaluated in the ER, MRI was performed, results as per below. Pain midline/left lumbar area with pain to left hip and groin. She denies radiation of the pain down legs. Denies numbness, tingling or weakness. Does report feeling like her mobility is limited due to the pain. Worsening pain with sitting or standing for too long, turning in bed or movement in general. She denies red flag symptoms including new loss or bowel, bladder or saddle anesthesia. Patient has tried PT, most recently completed less than a year ago with no improvement in symptoms, she attempts HEP but is limited d/t pain. She takes tylenol with minimal effect. Has tried muscle relaxers, heat, ice and topical medications without relief. She underwent manual manipulation with chiropractor but made it worse. She has previously received injections to her lower back at [facility] but they did nothing . Pain today rated as 5/10, constant but worse with movement. In terms of muscle damage condition is described as aching, sharp, stabbing. Condition is negatively impacting patients enjoyment of life, general activity, sleep, walking and ability to perform activities of daily living. Patient currently taking Apixaban, will require clearance for all procedures. [facility] Medical History Oropharyngeal dysphagia Hives COVID-19 vaccination refused Refused influenza vaccine Diabetes mellitus with hyperglycemia, without long-term current use of insulin Anxiety as acute reaction to gross stress Lumbago Mild intermittent asthma in adult without complication OAB (overactive bladder) Recurrent cough Constipation Muscle spasm Facial skin lesion Depression Paresthesia of right leg Diabetes mellitus with microalbuminuria, without long-term current use of insulin Osteoarthritis, knee History of depression Osteopenia after menopause Overweight Varicose veins of right lower extremity History of ST elevation myocardial infarction (STEMI) Coronary artery disease involving [place] coronary artery Hypertension Refused pneumococcal vaccination Dyslipidemia Surgical History History of section Hx of myomectomy S/P left rotator cuff repair History of heart artery stent Family History Father No problems noted. Mother No problems noted. 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 Answers questions appropriately. Fully engaged in examination. Skin: warm, dry, intact HEENT: Normocephalic. Hearing intact. Cardiac: External chest normal in appearance. Respiratory: No cough, audible wheezing or stridor. Abdomen: without gross distension. MS: No obvious swelling or deformities. Able to transition from sit to stand unassisted. Ambulates with bilaterally normal heel strike and toe off nontender to palpation over PSIS Tender to palpation over left lumbar paraspinal and midline lumbar vertebrae SLR neg bilaterally facet loading positive strength 5/5 BLE. +pain with I/E rotation left hip pain with forward flexion and extension Neurological: Oriented to person, place, time and situation. Thought process intact. No gait abnormalities appreciated. Psychiatric: Appropriate mood and affect. Good judgment and insight. Results Reviewed Results Reviewed: Assessment & Plan Assessment & Plan (1) Lumbar spondylosis: Code(s): M47.816 - Spondylosis without myelopathy or radiculopathy, lumbar region (2) Left hip pain: Code(s): M25.552 - Pain in left hip Plan Patient presented to the office today for evaluation and management of her chronic left lower back pain. XR LS ordered for eval XR left hip ordered for eval Patient has exhausted conservative therapy including OTC medications, topical medications, muscle relaxers, PT, HEP and previous attempts at injections. Discussed options for treatment including diagnostic interventional testing, epidural steroid injections, peripheral nerve stimulation with Sprint, RFA and more permanent neuromodulation. Will schedule for fluoroscopy guided diagnostic left L3 L4 L5 MBBs with local anesthetic. Plan for Sprint VS RFA if patient reports relief after diagnostic injection. Patient will need clearance prior to procedure, she is currently taking Apixaban. All questions and concerns have been answered and patient agrees with the plan. Follow up after injections and sooner if needed. Orders: Orders 2 XR lumbar spine 4V min Today M47.816 - Spondylosis without myelopathy or radiculopathy, lumbar region, M54.50 - Low back pain, unspecified XR hip LT w PEL1V Today M25.552 - Pain in left hip Coding Level of Care Code New Pt Level 4 (80743) Diagnoses Lumbar spondylosis M47.816 Left hip pain M25.552
[2023-11-21 10:05] VITALS: BP 156/74; PULSE 74; RESP 16; O2SAT 96; BMI 27.7
== END 2023-11-21 10:46 | disposition home or self-care (01) ==
PROVIDERS: PCP Internal Medicine; Visit Provider Registered Nurse Emergency
DX: M47.816 Spondylosis without myelopathy or radiculopathy, lumbar region (principal); M25.552 Pain in left hip
CPT/HCPCS: 99204

== ENCOUNTER 2024-01-15 20:19 | Emergency (ER) | payer OTHER, SELFPAY ==
--- NOTE | ~2024-01-15 | XR_ITS ---
EXAMINATION: XR KNEE, RIGHT CLINICAL INFORMATION: Pain COMPARISON: None available. TECHNIQUE: Four views of the right knee. FINDINGS: No fracture or joint effusion. Alignment is anatomic. Mild medial compartment joint space narrowing.. No abnormal soft tissue calcification. XR/XR knee RT 3V IMPRESSION: Mild degenerative disease of the right knee.
[2024-01-15 21:18] VITALS: BP 170/78; PULSE 71; RESP 18; TEMP 36.4; O2SAT 94; BMI 28.0
[2024-01-15 23:19] VITALS: BP 170/80; PULSE 74; RESP 18; TEMP 36.4; O2SAT 96
[2024-01-16 00:18] VITALS: BP 180/68; PULSE 61; RESP 12; TEMP 36.7; O2SAT 97
--- NOTE | 2024-01-16 01:17 | ED.EXTPRO ---
HPI - Extremity Problem General Chief complaint: Extremity Injury, Lower Stated complaint: R knee pain, pain meds arent working Time Seen by Provider: 01/16/24 00:23 Source: patient Mode of arrival: ambulatory Limitations: no limitations History of Present Illness HPI Narrative: 68 yo female with PMH of back pain, CAD s/p stent, HLD, PAF on eliquis, here with R medial knee pain s/p walking 2 hours 2 weeks ago she has tried multiple medications without any relief. NO swelling, fevers or rash. She was hoping we could do an injection here. She did see PCP she has to use a cane. MD Complaint: joint pain Onset (ago): week(s) (2) Pain Consistency: constant Location: right and knee Quality: aching, dull and constant Radiation: none Relieving factors: rest Exacerbating factors: weight bearing and walking Associated symptoms: denies other symptoms Context: other (after a lot of walking one day) Related Data Home Medications Medication Instructions Recorded Confirmed apixaban 5 mg tablet 5 mg PO BID 08/03/20 04/29/23 lancets 28 gauge (FreeStyle #100 ea 08/03/20 04/29/23 Lancets) metoprolol succinate 200 mg 200 mg PO DAILY 06/26/21 04/29/23 tablet,extended release 24 hr nitroglycerin 0.4 mg sublingual 0 mg sublingual 09/19/22 04/29/23 tablet multivitamin 1 tab PO DAILY 10/07/23 10/07/23 Previous Rx's Medication Instructions Recorded blood sugar diagnostic (FreeStyle 1 strip miscellaneous BID for 06/18/22 Lite Strips) diabetes mellitus #100 strips lisinopril 5 mg tablet 5 mg PO DAILY #90 tabs 07/04/22 repaglinide 2 mg tablet 2 mg PO TID #90 tabs 04/29/23 rosuvastatin 5 mg tablet 5 mg PO DAILY #30 tabs 04/29/23 docusate sodium 100 mg capsule 100 mg PO DAILY #90 caps 05/16/23 cyclobenzaprine 10 mg tablet 10 mg PO BEDTIME PRN for muscle 06/04/23 spasm #10 tabs hydroxyzine HCl 10 mg tablet 10 mg PO .qd PRN hives #30 tabs 09/24/23 cholecalciferol (vitamin D3) 50 50 mcg PO DAILY #30 caps 11/09/23 mcg (2,000 unit) capsule dapagliflozin propanediol 10 mg 10 mg PO QAM #90 tabs 11/09/23 tablet (Farxiga) ezetimibe 10 mg tablet 10 mg PO DAILY #90 tabs 12/08/23 fluticasone propionate 110 1 puff inhalation Q12H #12 grams 12/11/23 mcg/actuation HFA aerosol inhaler sitagliptin phosphate 100 mg 100 mg PO DAILY #30 tabs 12/24/23 tablet (Januvia) acetaminophen 325 mg capsule 325 mg PO QID PRN leg pain #30 caps 01/11/24 tramadol 50 mg tablet 50 mg PO BID PRN pain #12 tabs 01/16/24 Allergies Allergy/AdvReac Type Severity Reaction Status Date / Time atorvastatin [From LIPITOR] AdvReac Intermediate STOMACH Verified 11/21/23 10:01 ACHE oxycodone [From OXYCONTIN] AdvReac Intermediate SENSORY Verified 11/21/23 10:01 HALLUCINATIONS sulfamethoxazole AdvReac Intermediate chills Verified 11/21/23 10:01 [From Bactrim] Review of Systems Review of Systems: Constitutional : No Fever, No Chills ENT/Mouth : No Ear Pain, No Hoarseness, No sore throat Eyes: No Eye Pain, No Swelling, No Redness, No Foreign Body Cardiovascular : No Chest Pain, No SOB Respiratory : No Cough, No Dyspnea Gastrointestinal : No Nausea, No Vomiting, No Diarrhea, No abdominal Pain Genitourinary : No Dysuria, No Hematuria Musculoskeletal : positive joint pain, No Myalgias, No Joint Swelling Skin : No Skin lacerations, No rash Neuro : No Weakness, No Numbness, No Loss of Consciousness, No Dizziness, No Headache Psych : No Anxiety/Panic, No Depression All other systems reviewed and are negative PMFSH Past Medical History Attestation statement: The following information was validated with the patient. Source: old records reviewed Medical History Oropharyngeal dysphagia Hives COVID-19 vaccination refused Refused influenza vaccine Diabetes mellitus with hyperglycemia, without long-term current use of insulin Anxiety as acute reaction to gross stress Lumbago Mild intermittent asthma in adult without complication OAB (overactive bladder) Recurrent cough Constipation Muscle spasm Facial skin lesion Depression Paresthesia of right leg Diabetes mellitus with microalbuminuria, without long-term current use of insulin Osteoarthritis, knee History of depression Osteopenia after menopause Overweight Varicose veins of right lower extremity History of ST elevation myocardial infarction (STEMI) Coronary artery disease involving [place] coronary artery Hypertension Refused pneumococcal vaccination Dyslipidemia Surgical History History of section Hx of myomectomy S/P left rotator cuff repair History of heart artery stent Family History Family History Father No problems noted. Mother No problems noted. Brother Diabetes mellitus Daughter Mental health disorder Son Mental health disorder Social History Social History Housing: Apartment Alcohol intake: never Patient Tobacco Use Status: Never used Tobacco Smoked in Last 30 Days: No e-Cigarette/Vaping Use: Never Used Second Hand Smoke Exposure: No Advance Directives: No Advance Directives Information Provided: No service: No Current occupational status: disabled Current occupation: [employer] Current occupational exposures/hazards: No Cognitive needs: No Hearing needs: No Vision needs: Yes Physical Exam Vital Signs: Vital Signs: Last Vital Signs Temp 98.1 F 01/16/24 00:18 Pulse 61 01/16/24 00:18 Resp 12 01/16/24 00:18 BP 180/68 H 01/16/24 00:18 Pulse Ox 97 01/16/24 00:18 O2 Del Method Room Air 01/16/24 00:18 BMI result Body Mass Index 28.0 Appearance: Alert. Oriented X3. No acute distress. Eyes: Pupils equal, round and reactive to light. ENT: Pharynx normal. Neck: Normal inspection. Neck supple. CVS: Normal heart rate and rhythm. Pulses normal. Respiratory: No respiratory distress. Breath sounds normal. Abdomen: Soft and nontender. Skin: Skin warm and dry. Normal skin color. Normal skin turgor. Extremities: No lower extremity edema. ttp along R medial joint line no effusion no erythema no warmth normal ROM ttp along tendon insertion Neuro: Oriented X 3. No motor deficit. No sensory deficit. Medical Decision Making Medical Decision Making MDM Narrative: 68 yo female with PMH of back pain, CAD s/p stent, HLD, PAF on eliquis, here with R medial knee pain s/p walking 2 hours 2 weeks ago here with R knee pain at this time no signs of infection, NV intact, no posterior pain to suggest DVT will start on tramadol for pain no hx of seizures and refer to orthopedics. Differential Diagnosis Differential Diagnoses: The differential diagnosis associated with the presentation includes arthritis, tendonitis, no signs of infection, doubt septic joint, no posterior pain doubt DVT Independent Interpretation I performed an independent interpretation of an: Plain X-Ray (arthritis) Radiology Impression Discussion of test interpretation with radiology: I have reviewed the radiologist's reading. External Record Review External record reviewed: Inpatient record Prescription Management I considered prescription management with: Pain Medication Discharge Plan Discharge Clinical Impression: Arthralgia of knee, right Patient Disposition: Home, Self-Care Instructions: Knee Pain (ED), Arthralgia (ED) Additional Instructions: return for worsening symptoms, swelling, redness, fevers, blue or cold toes or any other concerns follow up with orthopedics can call office at [phone] Prescriptions: New tramadol 50 mg tablet 50 mg PO BID PRN (Reason: pain) Qty: 12 0RF No Action FreeStyle Lite Strips Strip 1 strip miscellaneous BID Qty: 100 0RF lisinopril 5 mg tablet 5 mg PO DAILY Qty: 90 1RF docusate sodium 100 mg capsule 100 mg PO DAILY Qty: 90 1RF cyclobenzaprine 10 mg tablet 10 mg PO BEDTIME PRN (Reason: for muscle spasm) Qty: 10 0RF hydroxyzine HCl 10 mg tablet 10 mg PO .qd PRN (Reason: hives) Qty: 30 3RF cholecalciferol (vitamin D3) 50 mcg (2,000 unit) capsule 50 mcg PO DAILY Qty: 30 5RF Farxiga 10 mg tablet 10 mg PO QAM Qty: 90 1RF ezetimibe 10 mg tablet 10 mg PO DAILY Qty: 90 1RF fluticasone propionate 110 mcg/actuation HFA aerosol inhaler 1 puff inhalation Q12H Qty: 12 1RF Rx Instructions: rinse and gargle mouth after use Januvia 100 mg tablet 100 mg PO DAILY Qty: 30 5RF acetaminophen 325 mg capsule 325 mg PO QID PRN (Reason: leg pain) Qty: 30 0RF nitroglycerin 0.4 mg tablet, sublingual 0 mg sublingual Eliquis 5 mg tablet 5 mg PO BID (DME) lancets [FreeStyle Lancets] 28 gauge misc See Rx Instructions .ROUTE .MEDSUPPLY Qty: 100 Rx Instructions: As directed rosuvastatin 5 mg tablet 5 mg PO DAILY Qty: 30 5RF repaglinide 2 mg tablet 2 mg PO TID Qty: 90 3RF Rx Instructions: administer within 30 minutes of a meal or snack metoprolol succinate 200 mg tablet extended release 24 hr 200 mg PO DAILY multivitamin Tablet 1 tab PO DAILY
[2024-01-16] MEDS: traMADoL HCL 50 MG TABLET PO (01:32)
[2024-01-16 01:33] VITALS: BP 131/80; PULSE 64; RESP 16; O2SAT 96
[2024-01-16 01:35] VITALS: BP 131/80; PULSE 64; RESP 16; TEMP 36.7; O2SAT 96
== END 2024-01-16 01:36 | disposition home or self-care (01) ==
PROVIDERS: Emergency Provider Emergency Medicine; PCP Internal Medicine
DX: M25.561 Pain in right knee (principal); Z79.899 Other long term (current) drug therapy
CPT/HCPCS: 73562; 99283; 99284

== ENCOUNTER 2024-01-27 09:48 | Outpatient (AMB) | payer OTHER, SELFPAY ==
--- NOTE | 2024-01-27 09:53 | MHC.OFFVIS ---
Intake Vital Signs 01/27/24 10:00 Height 4 ft 11 in Weight 134 lb BMI 27.1 Intake Visit Reasons: [employer]-Right knee pain-ER follow up 01/16/24 Intake Note: Meena is a 68 year old female who presents with complaints of progressively worsening right knee pain and giving way. The patient states that she 1st injured her knee 2 years ago. She had multiple injections at that time which gave her minimal relief. She was told that she had a ?tear? in her right knee. She has not sure if she had an MRI at that time. The patient states that she was scheduled to undergo right knee surgery at that time but chose not to. She has taken Tylenol and tramadol which gave her minimal relief. She states that she was taking Eliquis but stopped it 2 weeks ago. She has done physical therapy exercises which aggravated her pain. Most of her pain is along the medial aspect of her knee. Allergies atorvastatin [From LIPITOR] Adverse Reaction (Intermediate, Verified 01/27/24 10:03) STOMACH ACHE oxycodone [From OXYCONTIN] Adverse Reaction (Intermediate, Verified 01/27/24 10:03) SENSORY HALLUCINATIONS sulfamethoxazole [From Bactrim] Adverse Reaction (Intermediate, Verified 01/27/24 10:03) chills Medication List - Last Reviewed 01/27/24 by Viri Rojas CMA acetaminophen 325 mg PO QID PRN blood sugar diagnostic (FreeStyle Lite Strips) 1 strip miscellaneous BID cholecalciferol (vitamin D3) 50 mcg PO DAILY cyclobenzaprine 10 mg PO BEDTIME PRN dapagliflozin propanediol (Farxiga) 10 mg PO QAM docusate sodium 100 mg PO DAILY ezetimibe 10 mg PO DAILY fluticasone propionate 110 mcg/actuation 1 puff inhalation Q12H hydroxyzine HCl 10 mg PO .qd PRN lancets (FreeStyle Lancets) As directed lisinopril 5 mg PO DAILY metoprolol succinate ER 200 mg PO DAILY multivitamin 1 tab PO DAILY nitroglycerin 0 mg sublingual repaglinide 2 mg PO TID rosuvastatin 5 mg PO DAILY sitagliptin phosphate (Januvia) 100 mg PO DAILY tramadol 50 mg PO BID PRN PFSH Medical History Oropharyngeal dysphagia Hives COVID-19 vaccination refused Refused influenza vaccine Diabetes mellitus with hyperglycemia, without long-term current use of insulin Anxiety as acute reaction to gross stress Lumbago Mild intermittent asthma in adult without complication OAB (overactive bladder) Recurrent cough Constipation Muscle spasm Facial skin lesion Depression Paresthesia of right leg Diabetes mellitus with microalbuminuria, without long-term current use of insulin Osteoarthritis, knee History of depression Osteopenia after menopause Overweight Varicose veins of right lower extremity History of ST elevation myocardial infarction (STEMI) Coronary artery disease involving [place] coronary artery Hypertension Refused pneumococcal vaccination Dyslipidemia Surgical History History of section Hx of myomectomy S/P left rotator cuff repair History of heart artery stent Family History Father No problems noted. Mother No problems noted. 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 Current occupational exposures/hazards: No Cognitive needs: No Hearing needs: No Vision needs: Yes Female Reproductive History Menstrual Age of Menarche: 12 Physical Exam Vital Signs: BMI result Body Mass Index 27.1 Const Other: Well-nourished well-developed very friendly female awake alert and oriented x3 in no acute distress Extrem Other: Bilateral lower extremity examination shows good capillary refill, no skin lesions noted, normal sensation light touch Right knee examination shows a minimal effusion, minimal crepitus with range of motion, tenderness along her medial joint line, positive Dl's test, no instability Results Reviewed Results Reviewed: X-rays of the patient's right knee show mild joint space narrowing, no acute bony abnormalities Assessment & Plan Assessment & Plan (1) Right knee pain: Code(s): M25.561 - Pain in right knee Plan Ms. Hidalgo presents with right knee pain and mechanical symptoms most likely due to tearing of her medial meniscus. Thus, I will send her for an MRI of her right knee for further evaluation. I will see her back once the MRI is completed to discuss the findings and treatment options. I also gave her a prescription for Celebrex to help with her discomfort in the meantime. Feel free to call me at any time should questions regarding her orthopedic management arise. Thank you very much for asking me to see this very friendly patient. I spent 22 minutes in reviewing the patient's records and imaging studies, seeing the patient and documenting in the medical record. Orders: Orders MR knee RT wo con Today M25.561 - Pain in right knee Medications: New celecoxib (Celebrex) 100 mg PO DAILY 30 caps 2RF Coding Level of Care Code New Pt Level 2 (57998) Diagnoses Right knee pain M25.561
[2024-01-27 10:00] VITALS: BMI 27.1
== END 2024-01-27 10:20 | disposition home or self-care (01) ==
PROVIDERS: PCP Internal Medicine; Visit Provider Orthopaedic Surgery
DX: M25.561 Pain in right knee (principal)
CPT/HCPCS: 99202

== ENCOUNTER → 2024-01-27 09:48 | Outpatient (BNVA) | payer OTHER, SELFPAY | PROVIDERS: PCP Internal Medicine; Visit Provider Orthopaedic Surgery | DX: M25.561 Pain in right knee (principal) | CPT/HCPCS: 99202 ==

== ENCOUNTER 2024-02-03 06:58 | Outpatient (REF) | payer OTHER, SELFPAY ==
--- NOTE | ~2024-02-03 | FL_ITS ---
EXAMINATION: XR FLUOROSCOPY WITH IMAGES CLINICAL INFORMATION: Spondylosis without myelopathy or radiculopathy, lumbar region. COMPARISON: None available. TECHNIQUE: Fluoroscopy Supervised By: Dr. Kourtney Geiger. Fluoroscopy Time: 0.3 minutes. Cumulative Dose: 6.03 mGy. DAP: 1.64 Gycm2. Images: 3. FINDINGS: Three images demonstrate a needle on the left at most likely L5. Please see Dr. Kourtney Geiger's procedure note for complete details. Contrast is seen around the tip of the needle. FL/FL guidance in treatment room IMPRESSION: Fluoroscopy and spot films provided during lumbar procedure.
== END 2024-02-03 06:59 | disposition home or self-care (01) ==
LOC: CF 06:58
PROVIDERS: Visit Provider Anesthesiology
DX: M47.816 Spondylosis without myelopathy or radiculopathy, lumbar region (principal); M25.552 Pain in left hip
CPT/HCPCS: 64493; 64494; J2795; Q9967

== ENCOUNTER 2024-02-03 08:31 | Outpatient (AMB) | payer OTHER, SELFPAY ==
[2024-02-03 11:11] VITALS: BP 140/88; BP 150/90; PULSE 80; PULSE 88; RESP 18; RESP 20; O2SAT 96; O2SAT 98; BMI 27.1
--- NOTE | 2024-02-03 11:11 | MHC.OFFVIS ---
Intake Vital Signs 02/03/24 11:11 02/03/24 11:11 Height 4 ft 11 in Weight 134 lb BMI 27.1 BP 140/88 H 150/90 H Blood Pressure Location Lt brachial Lt brachial Position Sitting Sitting Respiration 18 20 Pulse 80 88 Pulse Source Pulse Oximeter Pulse Oximeter Pulse Oximetry (%) 98 96 Oxygen Delivery Method Room Air Room Air Comment Pre-Op Post-Op Intake Visit Reasons: LEFT DIAGNOSTIC L3, L4, DRL5 MBB Allergies atorvastatin [From LIPITOR] Adverse Reaction (Intermediate, Verified 01/27/24 10:03) STOMACH ACHE oxycodone [From OXYCONTIN] Adverse Reaction (Intermediate, Verified 01/27/24 10:03) SENSORY HALLUCINATIONS sulfamethoxazole [From Bactrim] Adverse Reaction (Intermediate, Verified 01/27/24 10:03) chills PFSH Medical History Oropharyngeal dysphagia Hives COVID-19 vaccination refused Refused influenza vaccine Diabetes mellitus with hyperglycemia, without long-term current use of insulin Anxiety as acute reaction to gross stress Lumbago Mild intermittent asthma in adult without complication OAB (overactive bladder) Recurrent cough Constipation Muscle spasm Facial skin lesion Depression Paresthesia of right leg Diabetes mellitus with microalbuminuria, without long-term current use of insulin Osteoarthritis, knee History of depression Osteopenia after menopause Overweight Varicose veins of right lower extremity History of ST elevation myocardial infarction (STEMI) Coronary artery disease involving [place] coronary artery Hypertension Refused pneumococcal vaccination Dyslipidemia Surgical History History of section Hx of myomectomy S/P left rotator cuff repair History of heart artery stent Family History Father No problems noted. Mother No problems noted. 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 ? ?Informed consent was explained to the patient. All questions were explained and? answered.? The patient was taken inside the operating room where she was positioned prone on the operating table. Time-out was performed delineating correct site, side, the nature of the procedure, patient's allergy, . All operating room staff was participating in OR time-out procedure. ? ? The lower back was prepped with ChloraPrep and draped with sterile towels.? C-arm was brought over the operating field and sq picture of L4-, L5 vertebra and S1 AREA were delineated on the screen.? Point of interest were delineated as confluence of superior articular process of L4 and L5 vertebra on the left with corresponding transverse processes as well as confluence of the sacral alae on the left with superior articular process of S1.? The projection of the point of interest to the skin were injected with the small amount of local anesthetic lidocaine 2% 1-1.5 cc.? After that 22 gauge 3.5 inch spinal needle was driven sequentially to the points of interest in tunnel vision fashion. After needles gently contacted the bone at the point of interests the needle was injected with small amount of the contrast.? The injection of the contrast did not demonstrate any intravascular or intrathecal spread of the contrast.? After that injection of the? ropivacaine 0.5%-1cc was performed at each needle location.??after that the needles were removed and Bandaids were applied. ? Upon completion of the injections? needle was? removed and sterile Band-Aids were applied.? The patient tolerated procedure very well. (2) Left hip pain: Code(s): M25.552 - Pain in left hip Plan Patient presented to the office today for evaluation and management of her chronic left lower back pain. XR LS ordered for eval XR left hip ordered for eval Patient has exhausted conservative therapy including OTC medications, topical medications, muscle relaxers, PT, HEP and previous attempts at injections. Discussed options for treatment including diagnostic interventional testing, epidural steroid injections, peripheral nerve stimulation with Sprint, RFA and more permanent neuromodulation. Will schedule for fluoroscopy guided diagnostic left L3 L4 L5 MBBs with local anesthetic. Plan for Sprint VS RFA if patient reports relief after diagnostic injection. Patient will need clearance prior to procedure, she is currently taking Apixaban. All questions and concerns have been answered and patient agrees with the plan. Follow up after injections and sooner if needed. Orders: Orders FL guidance in treatment room Today M47.816 - Spondylosis without myelopathy or radiculopathy, lumbar region Coding Level of Care Code Procedure Only Diagnoses Lumbar spondylosis M47.816 Left hip pain M25.552
== END 2024-02-03 11:04 | disposition home or self-care (01) ==
LOC: HO.PMCPRC 08:31
PROVIDERS: PCP Internal Medicine; Visit Provider Anesthesiology
DX: M25.552 Pain in left hip (principal); M47.816 Spondylosis without myelopathy or radiculopathy, lumbar region
CPT/HCPCS: 64493; 64494

== ENCOUNTER 2024-02-06 10:09 | Outpatient (AMB) | payer OTHER, SELFPAY ==
[2024-02-06 10:18] VITALS: BP 160/76; PULSE 83; RESP 16; O2SAT 95; BMI 27.1
--- NOTE | 2024-02-06 10:18 | A.OFFVIS_ITS ---
Intake Vital Signs 3 02/06/24 10:18 Height 4 ft 11 in Weight 134 lb BMI 27.1 BP 160/76 H Blood Pressure Location Lt brachial Position Sitting Respiration 16 Pulse 83 Pulse Source Pulse Oximeter Pulse Oximetry (%) 95 Oxygen Delivery Method Room Air Intake Visit Reasons: LEFT DIAGNOSTIC L3, L4, DRL5 MBB Allergies atorvastatin [From LIPITOR] Adverse Reaction (Intermediate, Verified 02/06/24 10:18) STOMACH ACHE oxycodone [From OXYCONTIN] Adverse Reaction (Intermediate, Verified 02/06/24 10:18) SENSORY HALLUCINATIONS sulfamethoxazole [From Bactrim] Adverse Reaction (Intermediate, Verified 02/06/24 10:18) chills HPI HPI Comments 2 History of Present Illness0 Details Meena is a very pleasant 69 year old female who presents to the office today for follow-up, 3 days status post left diagnostic L3-L4 DR L5 MBB. Patient reports the injections were very painful. She did feel numb over the area where she normally has pain after the injections, but states that the pain remains the same. She denies any improvement in her symptoms after the diagnostic injections. Patient does not wish to proceed with any further injections. She does report improvement in her symptoms with Flexeril at bedtime in the past, she would like to try that again. X-rays were reviewed, results as per below Prior: Meena is a very pleasant 68 year old female who presents to the office today for evaluation and management of her chronic lower back pain. She reports suffering with this pain for her whole life but it significantly worsened after receiving her covid booster 11/20/2021. At that time she was evaluated in the ER, MRI was performed, results as per below. Pain midline/left lumbar area with pain to left hip and groin. She denies radiation of the pain down legs. Denies numbness, tingling or weakness. Does report feeling like her mobility is limited due to the pain. Worsening pain with sitting or standing for too long, turning in bed or movement in general. She denies red flag symptoms including new loss or bowel, bladder or saddle anesthesia. Patient has tried PT, most recently completed less than a year ago with no improvement in symptoms, she attempts HEP but is limited d/t pain. She takes tylenol with minimal effect. Has tried muscle relaxers, heat, ice and topical medications without relief. She underwent manual manipulation with chiropractor but made it worse. She has previously received injections to her lower back at [facility] but they did nothing . Pain today rated as 5/10, constant but worse with movement. In terms of muscle damage condition is described as aching, sharp, stabbing. Condition is negatively impacting patients enjoyment of life, general activity, sleep, walking and ability to perform activities of daily living. Patient currently taking Apixaban, will require clearance for all procedures. [facility] Medical History Oropharyngeal dysphagia Hives COVID-19 vaccination refused Refused influenza vaccine Diabetes mellitus with hyperglycemia, without long-term current use of insulin Anxiety as acute reaction to gross stress Lumbago Mild intermittent asthma in adult without complication OAB (overactive bladder) Recurrent cough Constipation Muscle spasm Facial skin lesion Depression Paresthesia of right leg Diabetes mellitus with microalbuminuria, without long-term current use of insulin Osteoarthritis, knee History of depression Osteopenia after menopause Overweight Varicose veins of right lower extremity History of ST elevation myocardial infarction (STEMI) Coronary artery disease involving [place] coronary artery Hypertension Refused pneumococcal vaccination Dyslipidemia Surgical History History of section Hx of myomectomy S/P left rotator cuff repair History of heart artery stent Family History Father No problems noted. Mother No problems noted. 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 Answers questions appropriately. Fully engaged in examination. Skin: warm, dry, intact HEENT: Normocephalic. Hearing intact. Cardiac: External chest normal in appearance. Respiratory: No cough, audible wheezing or stridor. Abdomen: without gross distension. MS: No obvious swelling or deformities. Able to transition from sit to stand unassisted. Neurological: Oriented to person, place, time and situation. Thought process intact. No gait abnormalities appreciated. Psychiatric: Appropriate mood and affect. Good judgment and insight. Results Reviewed Results Reviewed: 11/21/2023 LUMBAR SPINE: Slight leftward curvature of the lumbar spine. Facet arthritis in the lower lumbar spine. Degenerative changes in the imaged lower thoracic spine. Atherosclerotic aortoiliac calcifications. Progression of advanced multilevel lumbar spondylosis with multilevel loss of disc space height, most notable at L5-S1. AP PELVIS AND LEFT HIP: Moderate degenerative changes on single AP view of the pelvis which includes the right hip. Surgical clips in the right inguinal region. LEFT HIP: Moderate degenerative changes left hip with joint space narrowing and hypertrophic change. Redemonstration of asymmetric hypertrophic change with subjacent lucency along the superolateral aspect of the left acetabulum. IMPRESSION: 1. Progression of advanced multilevel lumbar spondylosis, most notable at L5-S1. 2. Facet arthritis in the lower lumbar spine. 3. Moderate degenerative changes in the left hip. 4. Correlation with clinical exam recommended to determine further management. If there is concern for fracture or other underlying pathology, MRI could be obtained for further evaluation. Assessment & Plan Assessment & Plan (1) Lumbar spondylosis: Code(s): M47.816 - Spondylosis without myelopathy or radiculopathy, lumbar region (2) Left hip pain: Code(s): M25.552 - Pain in left hip Plan Patient presented to the office today for follow-up 3 days status post fluoroscopy guided diagnostic left L3 L4 L5 MBBs She reports no improvement in her pain after the diagnostic injections, she does report numbness to the area that coincides with where her pain is, but states the pain did not improve in the hours after the injection. She has not interested in proceeding with any further injections, she stated they were too painful. She is taken cyclobenzaprine in the past, requests a refill today. Continue with Tylenol as needed for pain All questions and concerns have been answered and patient agrees with the plan. Follow up in the office as needed. Medications: Refilled 2 cyclobenzaprine 10 mg PO BEDTIME PRN 30 tabs 2RF for muscle spasm Coding Level of Care Code Est Pt Level 3 (71094) Diagnoses Lumbar spondylosis M47.816 Left hip pain M25.552
== END 2024-02-06 10:38 | disposition home or self-care (01) ==
PROVIDERS: PCP Internal Medicine; Visit Provider Registered Nurse Emergency
DX: M47.816 Spondylosis without myelopathy or radiculopathy, lumbar region (principal); M25.552 Pain in left hip
CPT/HCPCS: 99213

== ENCOUNTER → 2024-02-06 10:09 | Outpatient (BNVA) | payer OTHER, SELFPAY | PROVIDERS: PCP Internal Medicine; Visit Provider Registered Nurse Emergency | DX: M25.552 Pain in left hip (principal); M47.816 Spondylosis without myelopathy or radiculopathy, lumbar region | CPT/HCPCS: 99212 ==

== ENCOUNTER 2024-03-09 10:10 | Outpatient (AMB) | payer OTHER, SELFPAY ==
[2024-03-09 10:39] VITALS: BMI 27.1
--- NOTE | 2024-03-09 10:39 | MHC.OFFVIS ---
Vital Signs 03/09/24 10:39 Height 4 ft 11 in Weight 134 lb BMI 27.1 Intake Visit Reasons: OV- MRI review Right knee Intake Note: Meena is a 69 year old female who presents for and MRI review of her Right knee. The patient states that her right knee discomfort has improved since her last visit. She continues to take Celebrex as needed. The patient states that most of the discomfort is along the medial aspect of her knee. Allergies atorvastatin [From LIPITOR] Adverse Reaction (Intermediate, Verified 03/09/24 10:48) STOMACH ACHE oxycodone [From OXYCONTIN] Adverse Reaction (Intermediate, Verified 03/09/24 10:48) SENSORY HALLUCINATIONS sulfamethoxazole [From Bactrim] Adverse Reaction (Intermediate, Verified 03/09/24 10:48) chills Medication List - Last Reconciled 03/09/24 by Alexis Perez MD acetaminophen 325 mg PO QID PRN blood sugar diagnostic (FreeStyle Lite Strips) 1 strip miscellaneous BID celecoxib (Celebrex) 100 mg PO DAILY cholecalciferol (vitamin D3) 50 mcg PO DAILY cyclobenzaprine 10 mg PO BEDTIME PRN dapagliflozin propanediol (Farxiga) 10 mg PO QAM docusate sodium 100 mg PO DAILY ezetimibe 10 mg PO DAILY fluticasone propionate 110 mcg/actuation 1 puff inhalation Q12H hydroxyzine HCl 10 mg PO .qd PRN lancets (FreeStyle Lancets) As directed lisinopril 5 mg PO DAILY metoprolol succinate ER 200 mg PO DAILY multivitamin 1 tab PO DAILY nitroglycerin 0 mg sublingual repaglinide 2 mg PO TID rosuvastatin 5 mg PO DAILY sitagliptin phosphate (Januvia) 100 mg PO DAILY tramadol 50 mg PO BID PRN PFSH Medical History Oropharyngeal dysphagia Hives COVID-19 vaccination refused Refused influenza vaccine Diabetes mellitus with hyperglycemia, without long-term current use of insulin Anxiety as acute reaction to gross stress Lumbago Mild intermittent asthma in adult without complication OAB (overactive bladder) Recurrent cough Constipation Muscle spasm Facial skin lesion Depression Paresthesia of right leg Diabetes mellitus with microalbuminuria, without long-term current use of insulin Osteoarthritis, knee History of depression Osteopenia after menopause Overweight Varicose veins of right lower extremity History of ST elevation myocardial infarction (STEMI) Coronary artery disease involving [place] coronary artery Hypertension Refused pneumococcal vaccination Dyslipidemia Surgical History History of section Hx of myomectomy S/P left rotator cuff repair History of heart artery stent Family History Father No problems noted. Mother No problems noted. 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 Current occupational exposures/hazards: No Cognitive needs: No Hearing needs: No Vision needs: Yes Female Reproductive History Menstrual Age of Menarche: 12 Physical Exam Vital Signs: BMI result Body Mass Index 27.1 Const Other: Well-nourished well-developed very friendly female awake alert and oriented x3 in no acute distress Extrem Other: Bilateral lower extremity examination shows good capillary refill, no skin lesions noted, normal sensation light touch Right knee examination shows a minimal effusion, minimal crepitus with range of motion, tenderness along her medial joint line, positive Dl's test, no instability Results Reviewed Results Reviewed: MRI of the patient's right knee shows mild diffuse degenerative changes as well as a small tear of the medial meniscus, no acute bony abnormalities Assessment & Plan Assessment & Plan (1) Right knee pain: Code(s): M25.561 - Pain in right knee Category: Medical Plan Ms. Hidalgo presents with intermittent right knee discomfort due to early degenerative joint disease as well as a small tear in her medial meniscus. I had a lengthy discussion with the patient regarding the treatment options. At this point the patient's symptoms are tolerable to her. She will continue taking Celebrex as needed for discomfort. She will follow up with me on an as-needed basis should her symptoms worsen in any way. Feel free to call me at any time should questions regarding her orthopedic management arise. I spent 21 minutes in reviewing the patient's records and imaging studies, seeing the patient and documenting in the medical record. Coding Level of Care Code Est Pt Level 3 (43245) Diagnoses Right knee pain M25.361
== END 2024-03-09 11:14 | disposition home or self-care (01) ==
PROVIDERS: PCP Internal Medicine; Visit Provider Orthopaedic Surgery
DX: M25.561 Pain in right knee (principal)
CPT/HCPCS: 99213

== ENCOUNTER → 2024-03-09 10:10 | Outpatient (BNVA) | payer OTHER, SELFPAY | PROVIDERS: PCP Internal Medicine; Visit Provider Orthopaedic Surgery | DX: M17.11 Unilateral primary osteoarthritis, right knee (principal); S83.241A Other tear of medial meniscus, current injury, right knee, initial encounter | CPT/HCPCS: 99212 ==

== ENCOUNTER 2024-04-01 13:22 | Outpatient (AMB) | payer OTHER, SELFPAY ==
--- NOTE | 2024-04-01 13:43 | MHC.PC.OV ---
Vital Signs 04/01/24 13:51 Height 4 ft 11 in Weight 132 lb BMI 26.7 BP 132/68 Blood Pressure Location Rt brachial Position Sitting Pulse 67 Pulse Source Pulse Oximeter Pulse Oximetry (%) 97 Oxygen Delivery Method Room Air Intake Visit Reasons: urinary urgency Intake Note: Pt is here today c/o urinary urgency upon urination Allergies atorvastatin [From LIPITOR] Adverse Reaction (Intermediate, Verified 04/01/24 14:19) STOMACH ACHE oxycodone [From OXYCONTIN] Adverse Reaction (Intermediate, Verified 04/01/24 14:19) SENSORY HALLUCINATIONS sulfamethoxazole [From Bactrim] Adverse Reaction (Intermediate, Verified 04/01/24 14:19) chills Medication List - Last Reconciled 04/01/24 by Carri Kohli MD acetaminophen 325 mg PO QID PRN blood sugar diagnostic (FreeStyle Lite Strips) 1 strip miscellaneous BID celecoxib (Celebrex) 100 mg PO DAILY cholecalciferol (vitamin D3) 50 mcg PO DAILY cyclobenzaprine 10 mg PO BEDTIME PRN dapagliflozin propanediol (Farxiga) 10 mg PO QAM docusate sodium 100 mg PO DAILY ezetimibe 10 mg PO DAILY fluticasone propionate 110 mcg/actuation 1 puff inhalation Q12H hydroxyzine HCl 10 mg PO .qd PRN lancets (FreeStyle Lancets) As directed lisinopril 5 mg PO DAILY metoprolol succinate ER 200 mg PO DAILY multivitamin 1 tab PO DAILY nitroglycerin 0 mg sublingual repaglinide 2 mg PO TID rosuvastatin 5 mg PO DAILY sitagliptin phosphate (Januvia) 100 mg PO DAILY Tobacco use date assessed: 04/01/24 Fall risk assessment: No Falls in past year Last assessed Fall Risk: 04/01/24 Dental Screening Dental Screen Date: 04/01/24 Did you have a dental visit in the last 12 months?: Yes Did you have a dental problem in the last 6 months where you did not have access to dental care?: No Was dental information given to patient?: Patient has dentist HPI urinary urgency HPI Details 69-year-old lady with diabetes mellitus, currently only on dapagliflozin 10 mg daily in the morning repaglinide and januvia, has hypertension and hyperlipidemia, here today complaining of urinary frequency and urgency. Urine dipstick did not show any infection but did show presence of ketones and glucosuria , hemoglobin A1c today is at 8.6%. Patient states that she has not really been following recommended diet, has been eating rice every day and pastries, but has been taking her medications as directed. She has also been sedentary for most of the winter months. ON LICENSE OF [facility] Medical History Oropharyngeal dysphagia COVID-19 vaccination refused Refused influenza vaccine Diabetes mellitus with hyperglycemia, without long-term current use of insulin Anxiety as acute reaction to gross stress Mild intermittent asthma in adult without complication OAB (overactive bladder) Diabetes mellitus with microalbuminuria, without long-term current use of insulin Osteoarthritis, knee History of depression Osteopenia after menopause Overweight Varicose veins of right lower extremity History of ST elevation myocardial infarction (STEMI) Coronary artery disease involving [place] coronary artery Hypertension Refused pneumococcal vaccination Dyslipidemia Surgical History History of section Hx of myomectomy S/P left rotator cuff repair History of heart artery stent Family History Father No problems noted. Mother No problems noted. 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 How often do you have a drink containing alcohol?: Never Total Score: 0 CHAPARRO-7 AMB Questionnaire CHAPARRO-7 Date CHAPARRO - 7 assessed: 04/29/23 Source: Developed by Drs. Cabrera Draper, Shanae Hood, Nathaniel Solorio and colleagues, with an educational zeinab from [employer]. Review of Systems Const Denies fever(s), Denies headache(s) and Denies weakness Eyes Denies change in vision ENT Denies dizziness, Denies headache(s), Denies nasal congestion, Denies nasal discharge and Denies sore throat Card Denies chest pain, Denies lightheadedness, Denies palpitations and Denies dyspnea Resp Denies cough and Denies dyspnea GI Denies abdominal pain, Denies change in bowel habits and Denies heartburn Reports as per HPI and Denies dysuria Musc Reports stiffness Skin/Breast Denies lesions and Denies rash Neuro Denies dizziness, Denies headache(s) and Denies weakness Endo Reports polydipsia, Reports polyuria and Denies palpitations [place]/Lymph Reports no additional complaints Physical exam (Primary Care) Vital Signs: Last Vital Signs Pulse 67 04/01/24 13:51 BP 132/68 04/01/24 13:51 Pulse Ox 97 04/01/24 13:51 Oxygen Delivery Method Room Air 04/01/24 13:51 BMI result Body Mass Index 26.7 Tobacco/Smoking Status: Tobacco use Status Tobacco use date assessed 04/01/24 04/01/24 13:59 Patient Tobacco Use Status Never used Tobacco 04/01/24 13:43 e-Cigarette/Vaping Use Never Used 04/01/24 13:43 Thrive Assessment: Date of Thrive Assessment Date Thrive assessed 04/29/23 04/01/24 13:43 Const Other: Alert oriented x3, no acute cardiorespiratory distress noted, ambulatory with normal gait General: no acute distress Nutritional Appearance: overweight Orientation/consciousness: patient oriented x3 HENKY Mouth: Normal oral and palatal mucosa present, oropharynx normal and moist mucous membranes Eyes General: appearance normal, both eyes and all related structures Neck Neck: Yes full ROM, Yes no lymphadenopathy and Yes supple Resp Auscultation: clear to auscultation bilaterally Cardio Other: S1-S2 present regular rate and rhythm GI Palpation (GI): Soft to palpation, nontender, no guarding and no masses General: Yes no CVA tenderness Back/Spine/Pelvis Back: no CVA tenderness Skin General skin exam: no rashes or lesions noted Neuro General: patient oriented x3, gait normal, tone normal, moves all extremities, Normal light touch and pain sensation and no focal motor deficits Extrem General: Yes full ROM, Yes no clubbing, cyanosis or edema and Yes normal gait Results AMB Urinalysis, Automated UA Leukoctes 0 Lianne/uL Last Edit by Kaity Jin CMA on 04/01/24 13:44 UA Nitrite Negative Last Edit by Kaity Jin CMA on 04/01/24 13:44 UA Urobilinogen 0.2 mg/dL Last Edit by Kaity Jin CMA on 04/01/24 13:44 UA Protein 0 mg/dL Last Edit by Kaity Jin CMA on 04/01/24 13:44 UA pH 6.0 Last Edit by Kaity Jin CMA on 04/01/24 13:44 UA Blood 0 Cb/uL Last Edit by Kaity Jin, SUDEEP on 04/01/24 13:44 UA Specific [place] 1.015 Last Edit by Kaity Jin CMA on 04/01/24 13:44 UA Ketone Positive Last Edit by Kaity Jin CMA on 04/01/24 13:44 UA Bilirubin 0 mg/dL Last Edit by Kaity Jin CMA on 04/01/24 13:44 UA Glucose 1000 mg/dL Last Edit by Kaity Jin CMA on 04/01/24 13:44 AMB Hemoglobin A1c AMB Hemoglobin A1c 8.6 % Last Edit by Kaity Jin CMA on 04/01/24 14:17 Results Reviewed Results Reviewed: Laboratory Last Values Hgb A1c (Clinic) 8.6 % (4.0-6.0) H 04/01/24 14:10 Urine pH (Auto) 6.0 04/01/24 13:29 Specific [place] (Auto) 1.015 04/01/24 13:29 Urine Protein (Auto) 0 mg/dL 04/01/24 13:29 Glucose (UA)(Auto) 1000 mg/dL 04/01/24 13:29 Urine Ketones (Auto) Positive 04/01/24 13:29 Urine Blood (Auto) 0 Cb/uL 04/01/24 13:29 Urine Nitrite (Auto) Negative 04/01/24 13:29 Urine Bilirubin (Auto) 0 mg/dL 04/01/24 13:29 Urine Urobilinogen (Auto) 0.2 mg/dL 04/01/24 13:29 Leukocyte Esterase (Auto) 0 Lianne/uL 04/01/24 13:29 Laboratory Tests 04/01/24 14:10 Hgb A1c (Clinic) 8.6 H Assessment and Plan Assessment & Plan (1) Diabetes mellitus with microalbuminuria, without long-term current use of insulin: Code(s): E11.29 - Type 2 diabetes mellitus with other diabetic kidney complication; R80.9 - Proteinuria, unspecified Plan: Patient with urinary frequency and polydipsia due to uncontrolled diabetes mellitus, with hemoglobin A1c at 8.6%. Adamantly refusing to start any insulin or taking metformin, due to abdominal cramping when latter was taken in the past. Will continue on dapagliflozin 10 mg daily and will add Mounjaro 2.5 mg inject subcutaneously once a week. Discussed possible side effects of medication, patient referred to certified lactation educator to help with education on how to take the medication education with regards to diet and exercise and Diabetes management. Orders: Orders AMB Hemoglobin A1c 04/01/24 Z13.9 - Encounter for screening, unspecified AMB Urinalysis Automated 04/01/24 Z13.9 - Encounter for screening, unspecified Medications: New tirzepatide (Mounjaro) 2.5 mg (0.5 mL) subcut QWEEK 2 mL 4RF 4 weeks Coding Level of Care Code Est Pt Level 4 (57449) Complex EM visit Add On G2211 Diagnoses Diabetes mellitus with microalbuminuria, without long-term current use of insulin E11.29; R80.9
[2024-04-01 13:51] VITALS: BP 132/68; PULSE 67; O2SAT 97; BMI 26.7
== END 2024-04-01 15:16 | disposition home or self-care (01) ==
PROVIDERS: PCP Internal Medicine; Visit Provider Internal Medicine
DX: E11.29 Type 2 diabetes mellitus with other diabetic kidney complication (principal); R35.0 Frequency of micturition
CPT/HCPCS: 81003; 83036; 99214; G2211

== ENCOUNTER 2024-04-06 09:29 | Outpatient (AMB) | payer OTHER, SELFPAY ==
--- NOTE | 2024-04-06 09:35 | MHC.OFFVIS ---
Vital Signs 04/06/24 09:36 Height 4 ft 11 in Weight 132 lb BMI 26.7 Intake Visit Reasons: Newprob-Left shoulder pain Intake Note: Meena is a 69 year old left hand dominant female who presents with Left shoulder pain and weakness. The patient states that she had surgery on her left shoulder several years ago after lifting ?a heavy bucket of water?. Patient states that that surgery involved ?a rotator cuff repair? performed at [facility]. She states that she reaggravated her left shoulder approximately 1 year ago. Since that time she has had weakness when lifting her left hand above shoulder height. She has tried physical therapy exercises which aggravated her pain. She has failed the last 6 weeks of conservative treatment. She has had injections in the past which gave her no relief. She has also tried Tylenol and anti-inflammatory medicines which gave her minimal relief. Allergies atorvastatin [From LIPITOR] Adverse Reaction (Intermediate, Verified 04/06/24 09:40) STOMACH ACHE oxycodone [From OXYCONTIN] Adverse Reaction (Intermediate, Verified 04/06/24 09:40) SENSORY HALLUCINATIONS sulfamethoxazole [From Bactrim] Adverse Reaction (Intermediate, Verified 04/06/24 09:40) chills Medication List - Last Reconciled 04/06/24 by Alexis Perez MD acetaminophen 325 mg PO QID PRN blood sugar diagnostic (FreeStyle Lite Strips) 1 strip miscellaneous BID celecoxib (Celebrex) 100 mg PO DAILY cholecalciferol (vitamin D3) 50 mcg PO DAILY cyclobenzaprine 10 mg PO BEDTIME PRN dapagliflozin propanediol (Farxiga) 10 mg PO QAM docusate sodium 100 mg PO DAILY ezetimibe 10 mg PO DAILY fluticasone propionate 110 mcg/actuation 1 puff inhalation Q12H hydroxyzine HCl 10 mg PO .qd PRN lancets (FreeStyle Lancets) As directed lisinopril 5 mg PO DAILY metoprolol succinate ER 200 mg PO DAILY multivitamin 1 tab PO DAILY nitroglycerin 0 mg sublingual repaglinide 2 mg PO TID rosuvastatin 5 mg PO DAILY sitagliptin phosphate (Januvia) 100 mg PO DAILY tirzepatide (Mounjaro) 2.5 mg (0.5 mL) subcut QWEEK 4 weeks [facility] Medical History Oropharyngeal dysphagia COVID-19 vaccination refused Refused influenza vaccine Diabetes mellitus with hyperglycemia, without long-term current use of insulin Anxiety as acute reaction to gross stress Mild intermittent asthma in adult without complication OAB (overactive bladder) Diabetes mellitus with microalbuminuria, without long-term current use of insulin Osteoarthritis, knee History of depression Osteopenia after menopause Overweight Varicose veins of right lower extremity History of ST elevation myocardial infarction (STEMI) Coronary artery disease involving [place] coronary artery Hypertension Refused pneumococcal vaccination Dyslipidemia Surgical History History of section Hx of myomectomy S/P left rotator cuff repair History of heart artery stent Family History Father No problems noted. Mother No problems noted. 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 Current occupational exposures/hazards: No Cognitive needs: No Hearing needs: No Vision needs: Yes Female Reproductive History Menstrual Age of Menarche: 12 Physical Exam Vital Signs: BMI result Body Mass Index 26.7 Const Other: Well-nourished well-developed very friendly female awake alert and oriented x3 in no acute distress Extrem Other: Bilateral upper extremity examination shows good capillary refill, no skin lesions noted, normal sensation light touch Left shoulder examination shows forward flexion 140 degrees, external rotation at 30 degrees, internal rotation to her back pocket, 4/5 strength with supraspinatus testing, positive impingement signs, tenderness over her acromioclavicular joint, no instability Results Reviewed Results Reviewed: X-rays of the patient's left shoulder show severe acromioclavicular joint narrowing, a type 3 acromion, no acute bony abnormalities Assessment & Plan Assessment & Plan (1) Left shoulder pain: Code(s): M25.512 - Pain in left shoulder Category: Medical Plan Ms. Hidalgo presents with progressively worsening left shoulder pain and weakness due to impingement syndrome and possible full-thickness rotator cuff tearing. Thus, I will send the patient for an MRI of her left shoulder for further evaluation. I will see her back once the MRI is completed to discuss the findings and treatment options. She will continue with her range of motion exercises in the meantime to prevent stiffness. Feel free to call me at any time should questions regarding her orthopedic management arise. I spent 22 minutes in reviewing the patient's records and imaging studies, seeing the patient and documenting in the medical record. Orders: Orders XR shoulder LT min 2V Today M25.512 - Pain in left shoulder MR shoulder LT wo con Today M25.512 - Pain in left shoulder Coding Level of Care Code Est Pt Level 3 (32041) Diagnoses Left shoulder pain M25.512
[2024-04-06 09:36] VITALS: BMI 26.7
== END 2024-04-06 09:43 | disposition home or self-care (01) ==
PROVIDERS: PCP Internal Medicine; Visit Provider Orthopaedic Surgery
DX: M25.512 Pain in left shoulder (principal)
CPT/HCPCS: 99213

== ENCOUNTER 2024-04-06 10:06 | Outpatient (REF) | payer OTHER, SELFPAY ==
--- NOTE | ~2024-04-06 | XR_ITS ---
EXAMINATION: XR SHOULDER, LEFT CLINICAL INFORMATION: Pain in left shoulder. COMPARISON: July 20, 2016. TECHNIQUE: Two views of the left shoulder. FINDINGS: Degenerative changes in the acromioclavicular joint with joint space narrowing and hypertrophic change. Degenerative changes in the glenohumeral joint with hypertrophic change along the inferior aspect of the glenoid. Irregularity along the superolateral aspect of the humeral head. Very faint tiny calcification in the subacromial space. Previous identified large calcification superior to the left greater tuberosity is no longer visualized. XR/XR shoulder LT min 2V IMPRESSION: 1. Degenerative changes in the acromioclavicular and glenohumeral joints.
== END 2024-04-06 10:07 | disposition home or self-care (01) ==
LOC: HO.HOSX 10:06
PROVIDERS: Visit Provider Orthopaedic Surgery
DX: M25.512 Pain in left shoulder (principal)
CPT/HCPCS: 73030; 99212

== ENCOUNTER 2024-04-07 12:50 | Outpatient (AMB) | payer OTHER, SELFPAY ==
[2024-04-07 12:57] VITALS: BMI 26.8
--- NOTE | 2024-04-07 12:57 | A.OFFVIS_ITS ---
VS Expanded 04/07/24 12:57 04/07/24 13:00 Height 4 ft 11 in 4 ft 11 in Weight 132 lb 11.492 oz 133 lb BMI 26.8 26.9 Intake Visit Reasons: T2DM Allergies atorvastatin [From LIPITOR] Adverse Reaction (Intermediate, Verified 04/06/24 09:40) STOMACH ACHE oxycodone [From OXYCONTIN] Adverse Reaction (Intermediate, Verified 04/06/24 09:40) SENSORY HALLUCINATIONS sulfamethoxazole [From Bactrim] Adverse Reaction (Intermediate, Verified 04/06/24 09:40) chills Nutrition Presentation Details: Pt presents for 6 m MNT f/u for T2DM Pt reports starting to work on reducing on sugar from pastries Did not bring glucometer to this appt Reports having 2-3 meals per day, finds herself eating more frequently, neighbors offer food Pt reports always reading food labels Not monitoring bg, not starting new dm meds yet. BS Monitoring Most Recent Diabetes Results: No Data to Display ELQ-Lujzmxr-Cw.Jeor Equation Height: 4 ft 11 in Weight: 133 lb Resting Metabolic Rate: 1043.74 Calculated Activity Level: Sedentary Calories Needed to Maintain Weight: 1252.49 [facility] Medical History Oropharyngeal dysphagia COVID-19 vaccination refused Refused influenza vaccine Diabetes mellitus with hyperglycemia, without long-term current use of insulin Anxiety as acute reaction to gross stress Mild intermittent asthma in adult without complication OAB (overactive bladder) Diabetes mellitus with microalbuminuria, without long-term current use of insulin Osteoarthritis, knee History of depression Osteopenia after menopause Overweight Varicose veins of right lower extremity History of ST elevation myocardial infarction (STEMI) Coronary artery disease involving [place] coronary artery Hypertension Refused pneumococcal vaccination Dyslipidemia Surgical History History of section Hx of myomectomy S/P left rotator cuff repair History of heart artery stent Family History Father No problems noted. Mother No problems noted. 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 occupational status: disabled Current occupation: [email or web address] Current occupational exposures/hazards: No Cognitive needs: No Hearing needs: No Vision needs: Yes Female Reproductive History Menstrual Age of Menarche: 12 Assessment & Plan Assessment & Plan (1) Diabetes mellitus with microalbuminuria, without long-term current use of insulin: Code(s): E11.29 - Type 2 diabetes mellitus with other diabetic kidney complication; R80.9 - Proteinuria, unspecified Category: Medical Plan Choosing nutrient dense foods, reducing on sugars Used wt : (62.7 kg on 10/2023), 60 kg (04/2024) Est kcal needs as per MSJ: 1386 (based on 55 kg, wt from 10/2022) est protein needs as per 0.8 -1.0 g/kg bw: 44-55 g/d est fluid needs as per 25 ml/kg bw: 1375 ml/d Rec fiber: 25 g/d Rec Na: <1500 mg/d Recommend fiber intake : 8-10 g per day and gradually increase to 25-28 g per day as tolerated Recommend sodium intake per day : less than 2000 mg Educated patient on: ( R = reviewed V = verbalizes understanding N/R = needs review N/A = not applicable * Food sources of carbohydrate, adequate serving sizes and its role in various health conditions: R V * Differences between complex carbohydrates a simple carbohydrates, role of fiber in diet: R V * Differences between types of fats and role in diet (mono on saturated fat fatty acids, saturated fatty acids, trans fats): R * Food sources of sodium in salt and healthy modifications for heart health in kidney health: NR * Healthy plate method concept: R V * Physical activity: Benefits a precaution: R V * Dietary prevention of Hyperglycemia: R V * monitoring blood sugar for self assessment Patient Instructions: Pay attention to total carbohydrates to 30-45 g at meal (2-3 meals/day) , 0-15 g as snack (2 or less per day) Choose high fiber foods to help with satiety Add spices/extracts for flavor vs sugars See meal ideas and log your meals/blood sugar Coding Level of Care Code Nutr Indiv Subseq (64232) Diagnoses Diabetes mellitus with microalbuminuria, without long-term current use of in sulin E11.29; R80.9 Time Spent (min) 30
[2024-04-07 13:00] VITALS: BMI 26.9
== END 2024-04-07 13:45 | disposition home or self-care (01) ==
PROVIDERS: PCP Internal Medicine; Visit Provider Dietitian, Registered
DX: E11.29 Type 2 diabetes mellitus with other diabetic kidney complication (principal); R80.9 Proteinuria, unspecified

== ENCOUNTER → 2024-04-07 12:50 | Outpatient (BNVA) | payer OTHER, SELFPAY | PROVIDERS: PCP Internal Medicine; Visit Provider Dietitian, Registered | DX: E11.29 Type 2 diabetes mellitus with other diabetic kidney complication (principal); R80.9 Proteinuria, unspecified; E66.3 Overweight; Z68.26 Body mass index [BMI] 26.0-26.9, adult; Z71.3 Dietary counseling and surveillance | CPT/HCPCS: 97803 ==

== ENCOUNTER 2024-06-29 16:22 | Outpatient (REF) | payer OTHER, SELFPAY ==
--- NOTE | ~2024-06-29 | MR_ITS ---
EXAMINATION: MR SHOULDER WITHOUT CONTRAST, LEFT CLINICAL INFORMATION: Left shoulder pain. Rotator cuff surgery 25 years ago. COMPARISON: Left shoulder radiographs dated 04/06/2024. TECHNIQUE: MRI of the shoulder without contrast was performed on a high-field scanner. FINDINGS: ROTATOR CUFF: [id number] supraspinatus and moderate infraspinatus tendinosis. Articular surface partial tearing of the infraspinatus tendon measuring approximately 1.6 x 1.6 cm. Bursal surface tendon fibers appear to remain intact. Mild subscapularis tendinosis. No muscle atrophy or fatty infiltration. BICEPS: Fluid within the proximal long head biceps tendon sheath, consistent with tenosynovitis. Linear fluid signal within the anterior aspect of the proximal biceps tendon with intra-articular attenuation, consistent with longitudinal partial tearing. CORACOACROMIAL ARCH: The undersurface of the acromion is attenuated, consistent with acromioplasty. Moderate acromioclavicular osteoarthritis. Trace fluid and edema within the subacromial-subdeltoid bursa, consistent with minimal bursitis. LABRUM/CAPSULE: No labral tear. Intact inferior joint capsule. GLENOHUMERAL JOINT/MARROW: Enthesopathic spurring and degenerative cystic change at the greater tuberosity. Mild articular cartilage signal heterogeneity with small marginal osteophytes. No acute fracture or dislocation. MR/MR shoulder LT wo con IMPRESSION: 1. [id number] supraspinatus and moderate infraspinatus tendinosis. Articular surface partial tearing of the infraspinatus tendon measuring 1.6 x 1.6 cm. Mild subscapularis tendinosis. 2. Proximal long head biceps tenosynovitis with longitudinal partial tearing. 3. Moderate acromioclavicular osteoarthritis. Minimal subacromial-subdeltoid bursitis. 4. Mild glenohumeral osteoarthritis. Electronically signed by: Gabriel Cates MD 06/30/2024 10:11 PM EDT
== END 2024-06-29 16:23 | disposition home or self-care (01) ==
LOC: HO.MRI 16:22
PROVIDERS: PCP Internal Medicine; Visit Provider Orthopaedic Surgery
DX: M25.512 Pain in left shoulder (principal)
CPT/HCPCS: 73221

== ENCOUNTER 2024-06-29 17:25 | Emergency (ER) | payer OTHER, SELFPAY ==
--- NOTE | 2024-06-29 17:33 | ED.GENADULT ---
HPI - General Adult General Chief complaint: General Medical Stated complaint: Unable to sleep/Headache Time Seen by Provider: 06/29/24 21:52 Related Data Home Medications ?Medication ?Instructions ?Recorded ?Confirmed lancets 28 gauge (FreeStyle #100 ea 08/03/20 08/03/24 Lancets) metoprolol succinate 200 mg 200 mg PO DAILY 06/26/21 08/03/24 tablet,extended release 24 hr nitroglycerin 0.4 mg sublingual 0 mg sublingual 09/19/22 08/03/24 tablet multivitamin 1 tab PO DAILY 10/07/23 08/03/24 Previous Rx's ?Medication ?Instructions ?Recorded blood sugar diagnostic (FreeStyle 1 strip miscellaneous BID for 06/18/22 Lite Strips) diabetes mellitus #100 strips rosuvastatin 5 mg tablet 5 mg PO DAILY #30 tabs 04/29/23 fluticasone propionate 110 1 puff inhalation Q12H #12 grams 12/11/23 mcg/actuation HFA aerosol inhaler sitagliptin phosphate 100 mg 100 mg PO DAILY #30 tabs 12/24/23 tablet (Januvia) acetaminophen 325 mg capsule 325 mg PO QID PRN leg pain #30 caps 01/11/24 celecoxib 100 mg capsule (Celebrex) 100 mg PO DAILY #30 caps 01/27/24 cyclobenzaprine 10 mg tablet 10 mg PO BEDTIME PRN for muscle 02/06/24 spasm #30 tabs lisinopril 5 mg tablet 5 mg PO DAILY #90 tabs 02/27/24 hydroxyzine HCl 10 mg tablet 10 mg PO .qd PRN hives #30 tabs 06/21/24 ezetimibe 10 mg tablet 10 mg PO DAILY #90 tabs 06/23/24 repaglinide 2 mg tablet 2 mg PO TID #90 tabs 06/23/24 dapagliflozin propanediol 10 mg 10 mg PO QAM #90 tabs 07/13/24 tablet (Farxiga) docusate sodium 100 mg capsule 100 mg PO DAILY #90 caps 07/13/24 albuterol sulfate 90 mcg/actuation 2 puff inhalation Q6H PRN 08/27/24 aerosol inhaler shortness of breath or wheezing #8.5 grams guaifenesin 200 mg/5 mL oral liquid 200 mg (5 mL) PO Q4H PRN cough 08/27/24 #118 mL prednisone 20 mg tablet 20 mg PO BID #10 tabs 08/27/24 azithromycin 250 mg tablet See Rx Instructions PO .COMPLEX #6 09/01/24 tabs acetaminophen 500 mg tablet 500 mg PO Q6H PRN fever or pain 09/06/24 (Tylenol Extra Strength) #14 tabs cyclobenzaprine 5 mg tablet 5 mg PO Q8H PRN pain (scale score 09/06/24 7-10) 5 days #14 tabs lidocaine 5 % topical patch 1 patch topical DAILY PRN pain #30 09/06/24 (Lidoderm) ea morphine 15 mg immediate release 15 mg PO Q6H PRN pain (scale score 09/06/24 tablet 7-10) 3 days #9 tabs Allergies Allergy/AdvReac Type Severity Reaction Status Date / Time atorvastatin [From LIPITOR] AdvReac Intermediate STOMACH Verified 09/06/24 13:19 ACHE oxycodone [From OXYCONTIN] AdvReac Intermediate SENSORY Verified 09/06/24 13:19 HALLUCINATIONS sulfamethoxazole AdvReac Intermediate chills Verified 09/06/24 13:19 [From Bactrim] vitamin d AdvReac Intermediate Hallucinati Uncoded 09/06/24 13:19 ons PMFSH Past Medical History Medical History Oropharyngeal dysphagia COVID-19 vaccination refused Refused influenza vaccine Diabetes mellitus with hyperglycemia, without long-term current use of insulin Anxiety as acute reaction to gross stress Mild intermittent asthma in adult without complication OAB (overactive bladder) Diabetes mellitus with microalbuminuria, without long-term current use of insulin Osteoarthritis, knee History of depression Osteopenia after menopause Overweight Varicose veins of right lower extremity History of ST elevation myocardial infarction (STEMI) Coronary artery disease involving [place] coronary artery Hypertension Refused pneumococcal vaccination Dyslipidemia Surgical History History of section Hx of myomectomy S/P left rotator cuff repair History of heart artery stent Family History Family History Father No problems noted. Mother No problems noted. Brother Diabetes mellitus Daughter Mental health disorder Son Mental health disorder Social History Social History Housing: Apartment Alcohol intake: never Patient Tobacco Use Status: Never used Tobacco e-Cigarette/Vaping Use: Never Used Second Hand Smoke Exposure: No service: No Current occupational status: disabled Current occupation: [employer] Current occupational exposures/hazards: No Cognitive needs: No Hearing needs: No Vision needs: Yes Physical Exam ED Vital Signs: Vital Signs - 24 hr 06/29/24 17:56 Temperature 98.3 F Pulse Rate 70 Respiratory Rate 18 Blood Pressure 153/71 H Pulse Oximetry 96 Oxygen Delivery Method Room Air BMI result Body Mass Index 26.2 Course Course Course Narrative: This is an RME done by MELLISA Davis: Additional HPI, ROS, PE not included below will be deferred to primary provider. 69 year old female with concerns of headache (severity: 10/10), dysphasia resulting in inability to sleep for the past 3 days. She states she feels like she is chocking while trying to go to bed and that her throat is also itchy. Patient did take allergy medication to try and assist in falling asleep with minimal relief. She is also experiencing visual hallucinations, stating it might be due to her vitamins or metoprolol. Patient typically goes to [facility]. Appearance: Alert.? Oriented X3.? No acute cardiopulmonary distress distress.? Head: Normocephalic, atraumatic, no step-offs or deformities Neck: Normal inspection.? Neck supple.? CVS: Pulses normal.? Respiratory: No respiratory distress.? Abdomen: Soft and nontender.? Skin: ? Normal skin color. Extremities: 5/5 strength to bilateral upper and lower extremities Neuro: Oriented X 3.? No motor deficit.? No sensory deficit. Discharge Plan Discharge Clinical Impression: Eloped from emergency department Patient Disposition: Left W/O Completing Treatment Prescriptions: No Action FreeStyle Lite Strips Strip 1 strip miscellaneous BID Qty: 100 0RF fluticasone propionate 110 mcg/actuation HFA aerosol inhaler 1 puff inhalation Q12H Qty: 12 1RF Rx Instructions: rinse and gargle mouth after use Januvia 100 mg tablet 100 mg PO DAILY Qty: 30 5RF acetaminophen 325 mg capsule 325 mg PO QID PRN (Reason: leg pain) Qty: 30 0RF lisinopril 5 mg tablet 5 mg PO DAILY Qty: 90 0RF hydroxyzine HCl 10 mg tablet 10 mg PO .qd PRN (Reason: hives) Qty: 30 3RF ezetimibe 10 mg tablet 10 mg PO DAILY Qty: 90 1RF repaglinide 2 mg tablet 2 mg PO TID Qty: 90 1RF Rx Instructions: administer within 30 minutes of a meal or snack Farxiga 10 mg tablet 10 mg PO QAM Qty: 90 1RF docusate sodium 100 mg capsule 100 mg PO DAILY Qty: 90 1RF azithromycin 250 mg tablet See Rx Instructions .ROUTE .COMPLEX Qty: 6 0RF Rx Instructions: For 250 mg dose pack: take 500 mg today (day 1), then 250 mg for 4 days (days 2-5) acetaminophen [Tylenol Extra Strength] 500 mg tablet 500 mg PO Q6H PRN (Reason: fever or pain) Qty: 14 0RF lidocaine [Lidoderm] 5 % adhesive patch,medicated 1 patch topical DAILY MDD remove after 12 hours PRN (Reason: pain) Qty: 30 0RF Rx Instructions: leave on most painful area for up to 12 hrs cyclobenzaprine 5 mg tablet 5 mg PO Q8H PRN (Reason: pain (scale score 7-10)) 5 Days Qty: 14 0RF morphine 15 mg tablet 15 mg PO Q6H PRN (Reason: pain (scale score 7-10)) 3 Days Qty: 9 0RF Rx Instructions: Partial Fill upon patient request. guaifenesin 200 mg/5 mL liquid 200 mg PO Q4H PRN (Reason: cough) Qty: 118 0RF prednisone 20 mg tablet 20 mg PO BID Qty: 10 0RF albuterol sulfate 90 mcg/actuation HFA aerosol inhaler 2 puff inhalation Q6H PRN (Reason: shortness of breath or wheezing) Qty: 8.5 0RF nitroglycerin 0.4 mg tablet, sublingual 0 mg sublingual (DME) lancets [FreeStyle Lancets] 28 gauge misc See Rx Instructions .ROUTE .MEDSUPPLY Qty: 100 Rx Instructions: As directed rosuvastatin 5 mg tablet 5 mg PO DAILY Qty: 30 5RF metoprolol succinate 200 mg tablet extended release 24 hr 200 mg PO DAILY multivitamin Tablet 1 tab PO DAILY cyclobenzaprine 10 mg tablet 10 mg PO BEDTIME PRN (Reason: for muscle spasm) Qty: 30 2RF celecoxib [Celebrex] 100 mg capsule 100 mg PO DAILY Qty: 30 2RF Discharge Date/Time: 06/29/24 22:44
[2024-06-29 17:56] VITALS: BP 153/71; PULSE 70; RESP 18; TEMP 36.8; O2SAT 96; BMI 26.2
== END 2024-06-29 22:44 | disposition left against medical advice (07) ==
LOC: HO.ED 22:33
PROVIDERS: Emergency Provider Emergency Medicine; PCP Internal Medicine
DX: R51.9 Headache, unspecified (principal); G47.00 Insomnia, unspecified; Z79.899 Other long term (current) drug therapy
CPT/HCPCS: 73221; 99281

== ENCOUNTER 2024-07-08 12:41 | Outpatient (AMB) | payer OTHER, SELFPAY ==
[2024-07-08 13:10] VITALS: BMI 26.7
--- NOTE | 2024-07-08 13:10 | A.OFFVIS_ITS ---
VS Expanded 07/08/24 13:10 Height 4 ft 11 in Weight 132 lb 4.438 oz BMI 26.7 Intake Visit Reasons: T2DM Allergies atorvastatin [From LIPITOR] Adverse Reaction (Intermediate, Verified 06/29/24 17:59) STOMACH ACHE oxycodone [From OXYCONTIN] Adverse Reaction (Intermediate, Verified 06/29/24 17:59) SENSORY HALLUCINATIONS sulfamethoxazole [From Bactrim] Adverse Reaction (Intermediate, Verified 06/29/24 17:59) chills Nutrition Presentation Details: Pt presents for MNT f/u for T2DM Pt did not bring glucometer to this appt Pt reports having beverages low in sugar (choosing juices diluted with water or water with lemon or diet soda diluted with water) Pt reports having 2 -3 meals/day B: 2 eggs scrambled, with 1 toast and 1 fruit L: high protein shake or 1/2 sand dinner: rice/chicken, salad, juice diluted with water snack: fruits/yogurt/crackers with peanut butter physical activity: daily life, contemplating swimming BS Monitoring Most Recent Diabetes Results: No Data to Display QKD-Avydqwr-Hr.Jeor Equation Height: 4 ft 11 in Weight: 132 lb Resting Metabolic Rate: 1039.21 Calculated Activity Level: Sedentary Calories Needed to Maintain Weight: 1247.05 [facility]LY [facility] Medical History Oropharyngeal dysphagia COVID-19 vaccination refused Refused influenza vaccine Diabetes mellitus with hyperglycemia, without long-term current use of insulin Anxiety as acute reaction to gross stress Mild intermittent asthma in adult without complication OAB (overactive bladder) Diabetes mellitus with microalbuminuria, without long-term current use of insulin Osteoarthritis, knee History of depression Osteopenia after menopause Overweight Varicose veins of right lower extremity History of ST elevation myocardial infarction (STEMI) Coronary artery disease involving [place] coronary artery Hypertension Refused pneumococcal vaccination Dyslipidemia Surgical History History of section Hx of myomectomy S/P left rotator cuff repair History of heart artery stent Family History Father No problems noted. Mother No problems noted. 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 Current occupational exposures/hazards: No Cognitive needs: No Hearing needs: No Vision needs: Yes Female Reproductive History Menstrual Age of Menarche: 12 Assessment & Plan Assessment & Plan (1) Diabetes mellitus with microalbuminuria, without long-term current use of insulin: Code(s): E11.29 - Type 2 diabetes mellitus with other diabetic kidney complication; R80.9 - Proteinuria, unspecified Category: Medical Plan Choosing nutrient dense foods, reducing on sugars Used wt : (62.7 kg on 10/2023), 60 kg (04/2024), 60 kg ( 07/27) Est kcal needs as per MSJ: 1386 (based on 55 kg, wt from 10/2022) est protein needs as per 0.8 -1.0 g/kg bw: 44-55 g/d est fluid needs as per 25 ml/kg bw: 1375 ml/d Rec fiber: 25 g/d Rec Na: <1500 mg/d Recommend fiber intake : 8-10 g per day and gradually increase to 25-28 g per day as tolerated Recommend sodium intake per day : less than 2000 mg Educated patient on: ( R = reviewed V = verbalizes understanding N/R = needs review N/A = not applicable * Food sources of carbohydrate, adequate serving sizes and its role in various health conditions: R V * Differences between complex carbohydrates a simple carbohydrates, role of fi juliana in diet: R V * Differences between types of fats and role in diet (mono on saturated fat fatty acids, saturated fatty acids, trans fats): R * Food sources of sodium in salt and healthy modifications for heart health in kidney health: NR * Healthy plate method concept: R V * Physical activity: Benefits a precaution: R V * Dietary prevention of Hyperglycemia: R V * monitoring blood sugar for self assessment: R Patient Instructions: Choose nuts as snack or yogurt with less than 12 g carb and limit snack to 2 a day see list of options Coding Level of Care Code Nutr Indiv Subseq (31035) Diagnoses Diabetes mellitus with microalbuminuria, without long-term current use of insulin E11.29; R80.9 Time Spent (min) 30
[2024-07-08 13:43] VITALS: BMI 26.7
== END 2024-07-08 13:45 | disposition home or self-care (01) ==
PROVIDERS: PCP Internal Medicine; Visit Provider Dietitian, Registered
DX: E11.29 Type 2 diabetes mellitus with other diabetic kidney complication (principal); R80.9 Proteinuria, unspecified

== ENCOUNTER → 2024-07-08 12:41 | Outpatient (BNVA) | payer OTHER, SELFPAY | PROVIDERS: PCP Internal Medicine; Visit Provider Dietitian, Registered | DX: E11.29 Type 2 diabetes mellitus with other diabetic kidney complication (principal); R80.9 Proteinuria, unspecified; Z71.3 Dietary counseling and surveillance | CPT/HCPCS: 97803 ==

== ENCOUNTER 2024-08-03 10:46 | Outpatient (AMB) | payer OTHER, SELFPAY ==
[2024-08-03 10:51] VITALS: BMI 26.7
--- NOTE | 2024-08-03 10:51 | MHC.OFFVIS ---
Vital Signs 08/03/24 10:51 Height 4 ft 11 in Weight 132 lb BMI 26.7 Intake Visit Reasons: OV- Left shoulder MRI review Intake Note: Meena is a 69 year old female who presents with complaints of intermittent discomfort in her left shoulder. The patient states that her left shoulder pain has improved since her last visit. She continues with her range of motion exercises. She has tried Tylenol and anti-inflammatory medicines which gave her fairly good relief. She wishes to hold off on surgery if at all possible. She has had injections in the past which gave her minimal relief. She has also done physical therapy exercises which aggravated her pain. Allergies atorvastatin [From LIPITOR] Adverse Reaction (Intermediate, Verified 08/03/24 10:52) STOMACH ACHE oxycodone [From OXYCONTIN] Adverse Reaction (Intermediate, Verified 08/03/24 10:52) SENSORY HALLUCINATIONS sulfamethoxazole [From Bactrim] Adverse Reaction (Intermediate, Verified 08/03/24 10:52) chills Medication List - Last Reconciled 08/03/24 by Alexis Perez MD acetaminophen 325 mg PO QID PRN blood sugar diagnostic (FreeStyle Lite Strips) 1 strip miscellaneous BID celecoxib (Celebrex) 100 mg PO DAILY cholecalciferol (vitamin D3) 50 mcg PO DAILY cyclobenzaprine 10 mg PO BEDTIME PRN dapagliflozin propanediol (Farxiga) 10 mg PO QAM docusate sodium 100 mg PO DAILY ezetimibe 10 mg PO DAILY fluticasone propionate 110 mcg/actuation 1 puff inhalation Q12H hydroxyzine HCl 10 mg PO .qd PRN lancets (FreeStyle Lancets) As directed lisinopril 5 mg PO DAILY metoprolol succinate ER 200 mg PO DAILY multivitamin 1 tab PO DAILY nitroglycerin 0 mg sublingual repaglinide 2 mg PO TID rosuvastatin 5 mg PO DAILY sitagliptin phosphate (Januvia) 100 mg PO DAILY tirzepatide (Mounjaro) 2.5 mg (0.5 mL) subcut QWEEK 4 weeks [facility] Medical History Oropharyngeal dysphagia COVID-19 vaccination refused Refused influenza vaccine Diabetes mellitus with hyperglycemia, without long-term current use of insulin Anxiety as acute reaction to gross stress Mild intermittent asthma in adult without complication OAB (overactive bladder) Diabetes mellitus with microalbuminuria, without long-term current use of insulin Osteoarthritis, knee History of depression Osteopenia after menopause Overweight Varicose veins of right lower extremity History of ST elevation myocardial infarction (STEMI) Coronary artery disease involving [place] coronary artery Hypertension Refused pneumococcal vaccination Dyslipidemia Surgical History History of section Hx of myomectomy S/P left rotator cuff repair History of heart artery stent Family History Father No problems noted. Mother No problems noted. 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 Current occupational exposures/hazards: No Cognitive needs: No Hearing needs: No Vision needs: Yes Female Reproductive History Menstrual Age of Menarche: 12 Physical Exam Vital Signs: BMI result Body Mass Index 26.7 Const Other: Well-nourished well-developed very friendly female awake alert and oriented x3 in no acute distress Extrem Other: Bilateral upper extremity examination shows good capillary refill, no skin lesions noted, normal sensation light touch Left shoulder examination shows almost full range of motion when compared to her right shoulder, 4+ out of 5 strength with supraspinatus testing, positive impingement signs, tenderness over her acromioclavicular joint, no instability Results Reviewed Results Reviewed: MRI of the patient's left shoulder shows severe acromioclavicular joint narrowing, a type 3 acromion, signal change within the supraspinatus tendon due to rotator cuff tendinosis versus a small rotator cuff tear Assessment & Plan Assessment & Plan (1) Impingement syndrome of left shoulder: Code(s): M75.42 - Impingement syndrome of left shoulder Category: Medical Plan Ms. Hidalgo presents with left shoulder pain due to impingement syndrome, acromioclavicular joint arthritis and rotator cuff tendinosis versus a small full-thickness tear. I had a lengthy discussion with the patient regarding the treatment options. At this point the patient's symptoms are tolerable to her. She will continue with her [id number]-[id number] exercises. The do's and don'ts of lifting were discussed at length with the patient. If the patient's symptoms do worsen in the future we will further discuss the risks and benefits left shoulder surgery. Surgery would most likely involve left shoulder diagnostic arthroscopy with distal clavicle excision, acromioplasty and rotator cuff repair showed a full-thickness tear be found at the time of her surgery. Feel free to call me at any time should questions regarding her orthopedic management arise. I spent 20 minutes in reviewing the patient's records and imaging studies, seeing the patient and documenting in the medical record. Coding Level of Care Code Est Pt Level 3 (40702) Complex EM visit Add On G2211 Diagnoses Impingement syndrome of left shoulder M75.42
== END 2024-08-03 11:01 | disposition home or self-care (01) ==
PROVIDERS: PCP Internal Medicine; Visit Provider Orthopaedic Surgery
DX: M75.42 Impingement syndrome of left shoulder (principal)
CPT/HCPCS: 99213

== ENCOUNTER → 2024-08-03 10:46 | Outpatient (BNVA) | payer OTHER, SELFPAY | PROVIDERS: PCP Internal Medicine; Visit Provider Orthopaedic Surgery | DX: M75.42 Impingement syndrome of left shoulder (principal) | CPT/HCPCS: 99212 ==

== ENCOUNTER 2024-08-09 13:04 | Outpatient (AMB) | payer OTHER, SELFPAY ==
--- NOTE | 2024-08-09 13:09 | A.OFFVIS_ITS ---
Vital Signs 08/09/24 13:10 Height 4 ft 11 in Weight 130 lb BMI 26.3 Intake Visit Reasons: New Problem - Lower back pain Intake Note: Meena is a 69 year old female who presents today for a new problem visit with complaints of lower back pain that started approximately one months. Patient reports constant stabbing pain in her lower back. She reports difficulty with bending over and standing after prolonged sitting. She says at home she has to use something that helps her pick things up without ending. She reports hx of injection in her left lower back in June or July of 2024 in [facility] [place] but had no relief. Tylenol, Celebrex, and ibuprofen offer her no relief. She is wondering if PT may help. Allergies atorvastatin [From LIPITOR] Adverse Reaction (Intermediate, Verified 08/09/24 13:13) STOMACH ACHE oxycodone [From OXYCONTIN] Adverse Reaction (Intermediate, Verified 08/09/24 13:13) SENSORY HALLUCINATIONS sulfamethoxazole [From Bactrim] Adverse Reaction (Intermediate, Verified 08/09/24 13:13) chills vitamin d Adverse Reaction (Intermediate, Uncoded 08/09/24 13:13) Hallucinations HPI HPI New Problem - Lower back pain: Details: Patient is a 69-year-old female presents for evaluation of the low back pain, ongoing for approximately 1-2 months. The patient states that she originally thought that this pain was in her hip, however she has since realized that it was in her lower back. The patient reports that this pain does occasionally radiate into her leg, but is primarily localized in and around the lumbar spine. Patient reports that this pain is worst when she attempts to bend down at the waist Patient denies any numbness or tingling in the bilateral lower extremities. No other acute complaints or concerns at this time. [facility] Medical History Oropharyngeal dysphagia COVID-19 vaccination refused Refused influenza vaccine Diabetes mellitus with hyperglycemia, without long-term current use of insulin Anxiety as acute reaction to gross stress Mild intermittent asthma in adult without complication OAB (overactive bladder) Diabetes mellitus with microalbuminuria, without long-term current use of insulin Osteoarthritis, knee History of depression Osteopenia after menopause Overweight Varicose veins of right lower extremity History of ST elevation myocardial infarction (STEMI) Coronary artery disease involving [place] coronary artery Hypertension Refused pneumococcal vaccination Dyslipidemia Surgical History History of section Hx of myomectomy S/P left rotator cuff repair History of heart artery stent Family History Father No problems noted. Mother No problems noted. 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 Current occupational exposures/hazards: No Cognitive needs: No Hearing needs: No Vision needs: Yes Female Reproductive History Menstrual Age of Menarche: 12 Physical Exam Vital Signs: BMI result Body Mass Index 26.3 Extrem Other: Patient reports no tenderness to palpation about the lumbar spine or paraspinous area Patient has no difficulty with ambulation Patient is able to flex and extend fully at the bilateral hips painlessly and without difficulty Assessment & Plan Assessment & Plan (1) Lumbar spondylosis: Code(s): M47.816 - Spondylosis without myelopathy or radiculopathy, lumbar region Category: Medical Plan 1. Low back pain At this time, patient is informed that we do not treat low back pain, and that she will be referred to Dr. Vernon daily in physiatry for assessment and treatment of low back pain Patient was amenable to this plan Patient will follow-up with Dr. Vernon daily of for evaluation of low back pain, sooner with any other acute concerns Orders: Referrals Physiatry Referral M47.816 - Spondylosis without myelopathy or radiculopathy, lumbar region Coding Level of Care Code Est Pt Level 3 (55069) Diagnoses Lumbar spondylosis M47.816
[2024-08-09 13:10] VITALS: BMI 26.3
== END 2024-08-09 13:36 | disposition home or self-care (01) ==
PROVIDERS: PCP Internal Medicine
DX: M47.816 Spondylosis without myelopathy or radiculopathy, lumbar region (principal)
CPT/HCPCS: 99213

== ENCOUNTER → 2024-08-09 13:04 | Outpatient (BNVA) | payer OTHER, SELFPAY | PROVIDERS: PCP Internal Medicine | DX: M47.816 Spondylosis without myelopathy or radiculopathy, lumbar region (principal) | CPT/HCPCS: 99212 ==

== ENCOUNTER 2024-08-27 01:11 | Emergency (ER) | payer OTHER, SELFPAY ==
--- NOTE | ~2024-08-27 | XR_ITS ---
EXAMINATION: XR CHEST CLINICAL INFORMATION: Cough. COMPARISON: None available. TECHNIQUE: Frontal view of the chest was obtained. FINDINGS: No significant abnormality is noted involving the heart, lungs, mediastinum, bony thorax or soft tissues. XR/XR chest 1V IMPRESSION: No evidence for active cardiopulmonary disease. Electronically signed by: Tanmay Aldridge MD 08/27/2024 03:27 AM EDT
[2024-08-27 01:20] VITALS: BP 164/84; PULSE 81; RESP 18; TEMP 36.4; O2SAT 99; BMI 26.1
[2024-08-27 02:02] LABS: IDNOW Serial# 6674DD1D; Strep A Nucleic Acid Negative (Negative)
[2024-08-27 02:07] VITALS: O2SAT 99
--- NOTE | 2024-08-27 02:09 | PC.NURSE ---
Provider to bedside for primary eval. Pt awaiting lab results, aware of plan of care.
--- NOTE | 2024-08-27 02:17 | ED.URI ---
HPI - URI/Sore Throat General Chief Complaint: Upper Respiratory Symptoms Stated Complaint: asthmatic Time Seen by Provider: 08/27/24 01:53 Source: patient Mode of arrival: ambulatory Limitations: no limitations History of Present Illness ED Provider: DR. Charlton HPI Narrative: 69 year female walked to the ED for evaluation of 3 days of generalized body ache, subjective fever, runny nose, congestion, sore throat, headache, nonproductive dry cough, history of asthma, no cigarette smoking. Came in with shortness of breath and having a coughing spells. Patient emergency department feeling better. Related Data Home Medications ?Medication ?Instructions ?Recorded ?Confirmed lancets 28 gauge (FreeStyle #100 ea 08/03/20 08/03/24 Lancets) metoprolol succinate 200 mg 200 mg PO DAILY 06/26/21 08/03/24 tablet,extended release 24 hr nitroglycerin 0.4 mg sublingual 0 mg sublingual 09/19/22 08/03/24 tablet multivitamin 1 tab PO DAILY 10/07/23 08/03/24 Previous Rx's ?Medication ?Instructions ?Recorded blood sugar diagnostic (FreeStyle 1 strip miscellaneous BID for 06/18/22 Lite Strips) diabetes mellitus #100 strips rosuvastatin 5 mg tablet 5 mg PO DAILY #30 tabs 04/29/23 fluticasone propionate 110 1 puff inhalation Q12H #12 grams 12/11/23 mcg/actuation HFA aerosol inhaler sitagliptin phosphate 100 mg 100 mg PO DAILY #30 tabs 12/24/23 tablet (Januvia) acetaminophen 325 mg capsule 325 mg PO QID PRN leg pain #30 caps 01/11/24 celecoxib 100 mg capsule (Celebrex) 100 mg PO DAILY #30 caps 01/27/24 cyclobenzaprine 10 mg tablet 10 mg PO BEDTIME PRN for muscle 02/06/24 spasm #30 tabs lisinopril 5 mg tablet 5 mg PO DAILY #90 tabs 02/27/24 hydroxyzine HCl 10 mg tablet 10 mg PO .qd PRN hives #30 tabs 06/21/24 ezetimibe 10 mg tablet 10 mg PO DAILY #90 tabs 06/23/24 repaglinide 2 mg tablet 2 mg PO TID #90 tabs 06/23/24 dapagliflozin propanediol 10 mg 10 mg PO QAM #90 tabs 07/13/24 tablet (Farxiga) docusate sodium 100 mg capsule 100 mg PO DAILY #90 caps 07/13/24 albuterol sulfate 90 mcg/actuation 2 puff inhalation Q6H PRN 08/27/24 aerosol inhaler shortness of breath or wheezing #8.5 grams guaifenesin 200 mg/5 mL oral liquid 200 mg (5 mL) PO Q4H PRN cough 08/27/24 #118 mL prednisone 20 mg tablet 20 mg PO BID #10 tabs 08/27/24 Allergies Allergy/AdvReac Type Severity Reaction Status Date / Time atorvastatin [From LIPITOR] AdvReac Intermediate STOMACH Verified 08/27/24 01:21 ACHE oxycodone [From OXYCONTIN] AdvReac Intermediate SENSORY Verified 08/27/24 01:21 HALLUCINATIONS sulfamethoxazole AdvReac Intermediate chills Verified 08/27/24 01:21 [From Bactrim] vitamin d AdvReac Intermediate Hallucinati Uncoded 08/27/24 01:21 ons Review of Systems Review of Systems: All other systems are reviewed and are negative Constitutional: Reports as per HPI and Reports no additional constitutional complaints Eyes: Reports as per HPI and Reports no additional eye complaints Reports system reviewed and no additional complaints, except as documented Cardiovascular: Reports as per HPI and Reports no additional cardiovascular complaints Respiratory: Reports as per HPI and Reports no additional respiratory complaints Gastrointestinal: Reports as per HPI and Reports no additional gastrointestinal complaints Genitourinary: Reports no additional female genitourinary complaints Musculoskeletal: Reports no additional musculoskeletal complaints Skin/Breast: Reports system reviewed and no additional complaints, except as docu Psychiatric: Reports no additional psychiatric complaints Endocrine: Reports no additional endocrine complaints Hematologic/Lymphatic: Reports no additional hematologic/lymphatic complaints Allergic/Immunologic: Reports no additional allergic/immunologic complaints Reports system reviewed and no additional complaints, except as documented and Reports Abnormal speech present PMFSH Past Medical History Medical History Oropharyngeal dysphagia COVID-19 vaccination refused Refused influenza vaccine Diabetes mellitus with hyperglycemia, without long-term current use of insulin Anxiety as acute reaction to gross stress Mild intermittent asthma in adult without complication OAB (overactive bladder) Diabetes mellitus with microalbuminuria, without long-term current use of insulin Osteoarthritis, knee History of depression Osteopenia after menopause Overweight Varicose veins of right lower extremity History of ST elevation myocardial infarction (STEMI) Coronary artery disease involving [place] coronary artery Hypertension Refused pneumococcal vaccination Dyslipidemia Surgical History History of section Hx of myomectomy S/P left rotator cuff repair History of heart artery stent Family History Family History Father No problems noted. Mother No problems noted. Brother Diabetes mellitus Daughter Mental health disorder Son Mental health disorder Social History Social History Housing: Apartment Alcohol intake: never Patient Tobacco Use Status: Never used Tobacco Smoked in Last 30 Days: No e-Cigarette/Vaping Use: Never Used Second Hand Smoke Exposure: No Use of substances other than those prescribed or required for medical reasons: No Advance Directives: No Advance Directives Information Provided: Yes Do you have a plan to hurt others: No Plan service: No Current occupational status: disabled Current occupation: [employer] Current occupational exposures/hazards: No Cognitive needs: No Hearing needs: No Vision needs: Yes Physical Exam Vital Signs: Vital Signs: Last Vital Signs Temp 97.6 F 08/27/24 01:20 Pulse 81 08/27/24 01:20 Resp 18 08/27/24 01:20 BP 164/84 H 08/27/24 01:20 Pulse Ox 99 08/27/24 02:07 O2 Del Method Room Air 08/27/24 02:07 BMI result Body Mass Index 26.1 Vital signs have been reviewed and appear to be correct. Blood pressure elevated. Heart rate normal. Respiratory rate normal. Temperature normal. Oxygen saturation normal. Appearance: Alert. Oriented X3. No acute distress. Head: Normal external exam. Normocephalic. Atraumatic. No Celestin signs noted. No raccoon eyes noted Eyes: PERRLA. EOMI. Conjunctiva and sclera normal. Eyelids normal. ENT: TM's Normal. Pharynx normal. Uvula midline. Moist mucous membranes. No trismus noted. No drooling noted. No muffled voice noted. Neck: Normal inspection. Neck supple. FROM. No adenopathy. Thyroid Normal. No meningeal signs. No neck mass noted. CVS: Normal heart rate and rhythm. Heart sound normal. No murmurs noted. Pulses normal throughout. Respiratory: No respiratory distress. Painless inspiration. Breath sounds normal. No wheezes/rales/rhonchi noted. Chest nontender. No accessory muscle usage noted or decreased air movement noted. Abdomen: Soft and nontender. Bowel sounds normal in all 4 quadrants. No distention noted. No organomegaly noted. No visible injury noted. Back: No CVA tenderness. Full range of motion noted. Skin: Skin warm and dry. Normal skin color. Normal skin turgor. No rashes/lesions/lacerations noted. Extremities: No lower extremity edema. Extremities exhibit normal range of motion. Extremities nontender. Neuro: Oriented X 3. Cranial nerve exam: II-XII are grossly intact No motor deficit. No sensory deficit. Reflexes normal. Course Reevaluation(s) Reevaluation #1: Acute bronchitis with nonproductive dry cough spells for the past 3 days. Feels better in the emergency department. Will discharge on a coughing medication, prednisone, bronchodilator. Time: 03:00 Medical Decision Making Differential Diagnosis Differential Diagnoses: The differential diagnosis associated with the presentation includes (Pneumonia, pneumothorax, pleural effusion, influenza a, COVID-19 infection, bronchitis, strep pharyngitis.) Admission/Observation Consideration of admission/observation: Escalation of care including admission/observation considered Lab Data Labs: Lab Results 08/27/24 Range/Units 01:38 S. pyogenes GrpA DAMARI Negative (Negative) Chronic Conditions Patient?s care impacted by: Other (Asthma) Discharge Plan Discharge Clinical Impression: Bronchitis Patient Disposition: Home, Self-Care Instructions: Acute Bronchitis (ED) Prescriptions: New guaifenesin 200 mg/5 mL liquid 200 mg PO Q4H PRN (Reason: cough) Qty: 118 0RF prednisone 20 mg tablet 20 mg PO BID Qty: 10 0RF albuterol sulfate 90 mcg/actuation HFA aerosol inhaler 2 puff inhalation Q6H PRN (Reason: shortness of breath or wheezing) Qty: 8.5 0RF No Action FreeStyle Lite Strips Strip 1 strip miscellaneous BID Qty: 100 0RF fluticasone propionate 110 mcg/actuation HFA aerosol inhaler 1 puff inhalation Q12H Qty: 12 1RF Rx Instructions: rinse and gargle mouth after use Januvia 100 mg tablet 100 mg PO DAILY Qty: 30 5RF acetaminophen 325 mg capsule 325 mg PO QID PRN (Reason: leg pain) Qty: 30 0RF lisinopril 5 mg tablet 5 mg PO DAILY Qty: 90 0RF hydroxyzine HCl 10 mg tablet 10 mg PO .qd PRN (Reason: hives) Qty: 30 3RF ezetimibe 10 mg tablet 10 mg PO DAILY Qty: 90 1RF repaglinide 2 mg tablet 2 mg PO TID Qty: 90 1RF Rx Instructions: administer within 30 minutes of a meal or snack Farxiga 10 mg tablet 10 mg PO QAM Qty: 90 1RF docusate sodium 100 mg capsule 100 mg PO DAILY Qty: 90 1RF nitroglycerin 0.4 mg tablet, sublingual 0 mg sublingual (DME) lancets [FreeStyle Lancets] 28 gauge misc See Rx Instructions .ROUTE .MEDSUPPLY Qty: 100 Rx Instructions: As directed rosuvastatin 5 mg tablet 5 mg PO DAILY Qty: 30 5RF metoprolol succinate 200 mg tablet extended release 24 hr 200 mg PO DAILY multivitamin Tablet 1 tab PO DAILY cyclobenzaprine 10 mg tablet 10 mg PO BEDTIME PRN (Reason: for muscle spasm) Qty: 30 2RF celecoxib [Celebrex] 100 mg capsule 100 mg PO DAILY Qty: 30 2RF Referrals: Carri Kohli MD [Primary Care Provider] - Print Language: Japanese
[2024-08-27 02:23] LABS: Influenza A PCR NEGATIVE (Negative); Influenza B PCR NEGATIVE (Negative); Resp Syncy Virus RNA Qual PCR NEGATIVE (Negative); SARS COV2 PCR INHOUSE NEGATIVE (Negative)
[2024-08-27] MEDS: predniSONE 20 MG TABLET 40 MG PO (02:38)
[2024-08-27] MEDS: guaiFEN/Codeine SF 200/20/10ML 10 ML LIQUID PO (02:38)
--- NOTE | 2024-08-27 02:42 | PC.NURSE ---
Pt medicated per MAR, resting on stretcher, A&Ox3, skin pwd respirations even unlabored. Awaiting improvement in symptoms.
[2024-08-27 03:55] VITALS: BP 132/61; PULSE 81; RESP 16; TEMP 36.8; O2SAT 97
[2024-08-27 04:09] VITALS: BP 132/61; PULSE 81; RESP 16; TEMP 36.8; O2SAT 97
== END 2024-08-27 04:10 | disposition home or self-care (01) ==
PROVIDERS: Emergency Provider Emergency Medicine; PCP Internal Medicine
DX: J40 Bronchitis, not specified as acute or chronic (principal); M79.10 Myalgia, unspecified site; R50.9 Fever, unspecified; J02.9 Acute pharyngitis, unspecified; R05.9 Cough, unspecified; Z03.818 Encounter for observation for suspected exposure to other biological agents ruled out
CPT/HCPCS: 0241U; 71045; 87651; 99283; 99284

== ENCOUNTER 2024-09-01 00:55 | Emergency (ER) | payer OTHER, SELFPAY ==
[2024-09-01 00:57] VITALS: BP 168/67; PULSE 84; RESP 18; TEMP 36.2; O2SAT 96; BMI 25.9
--- NOTE | 2024-09-01 01:27 | ED.GENADULT ---
HPI - General Adult General Chief complaint: Upper Respiratory Symptoms Stated complaint: bronchitis meds not working Time Seen by Provider: 09/01/24 01:19 Source: patient, RN notes reviewed and old records reviewed Mode of arrival: ambulatory Limitations: no limitations History of Present Illness ED Provider: Joya HPI narrative: 69-year-old female with past medical history significant for asthma, coronary artery disease, diabetes, hyperlipidemia, hypertension, paroxysmal AFib maintained on Eliquis presents for evaluation of cough. Patient was seen here 5 days ago and diagnosed with acute bronchitis. She had negative viral swabs, chest x-ray that showed no acute intra thoracic pathology She was ultimately discharged with guaifenesin, prednisone and albuterol inhaler The patient reports that your symptoms are worse now. She denies any chest pain but states that she wakes up feeling as though she can not catch her breath She reports her cough has worsened. She denies any fevers or chills. No complaints or concerns at this time Related Data Home Medications ?Medication ?Instructions ?Recorded ?Confirmed lancets 28 gauge (FreeStyle #100 ea 08/03/20 08/03/24 Lancets) metoprolol succinate 200 mg 200 mg PO DAILY 06/26/21 08/03/24 tablet,extended release 24 hr nitroglycerin 0.4 mg sublingual 0 mg sublingual 09/19/22 08/03/24 tablet multivitamin 1 tab PO DAILY 10/07/23 08/03/24 Previous Rx's ?Medication ?Instructions ?Recorded blood sugar diagnostic (FreeStyle 1 strip miscellaneous BID for 06/18/22 Lite Strips) diabetes mellitus #100 strips rosuvastatin 5 mg tablet 5 mg PO DAILY #30 tabs 04/29/23 fluticasone propionate 110 1 puff inhalation Q12H #12 grams 12/11/23 mcg/actuation HFA aerosol inhaler sitagliptin phosphate 100 mg 100 mg PO DAILY #30 tabs 12/24/23 tablet (Januvia) acetaminophen 325 mg capsule 325 mg PO QID PRN leg pain #30 caps 01/11/24 celecoxib 100 mg capsule (Celebrex) 100 mg PO DAILY #30 caps 01/27/24 cyclobenzaprine 10 mg tablet 10 mg PO BEDTIME PRN for muscle 02/06/24 spasm #30 tabs lisinopril 5 mg tablet 5 mg PO DAILY #90 tabs 02/27/24 hydroxyzine HCl 10 mg tablet 10 mg PO .qd PRN hives #30 tabs 06/21/24 ezetimibe 10 mg tablet 10 mg PO DAILY #90 tabs 06/23/24 repaglinide 2 mg tablet 2 mg PO TID #90 tabs 06/23/24 dapagliflozin propanediol 10 mg 10 mg PO QAM #90 tabs 07/13/24 tablet (Farxiga) docusate sodium 100 mg capsule 100 mg PO DAILY #90 caps 07/13/24 albuterol sulfate 90 mcg/actuation 2 puff inhalation Q6H PRN 08/27/24 aerosol inhaler shortness of breath or wheezing #8.5 grams guaifenesin 200 mg/5 mL oral liquid 200 mg (5 mL) PO Q4H PRN cough 08/27/24 #118 mL prednisone 20 mg tablet 20 mg PO BID #10 tabs 08/27/24 azithromycin 250 mg tablet See Rx Instructions PO .COMPLEX #6 09/01/24 tabs Allergies Allergy/AdvReac Type Severity Reaction Status Date / Time atorvastatin [From LIPITOR] AdvReac Intermediate STOMACH Verified 09/01/24 00:59 ACHE oxycodone [From OXYCONTIN] AdvReac Intermediate SENSORY Verified 09/01/24 00:59 HALLUCINATIONS sulfamethoxazole AdvReac Intermediate chills Verified 09/01/24 00:59 [From Bactrim] vitamin d AdvReac Intermediate Hallucinati Uncoded 08/27/24 01:21 ons Review of Systems Constitutional: Constitutional: Denies body ache(s), Denies chills, Denies fever(s) and Denies frequent falls ENT: Denies vertigo Cardiovascular: Cardiovascular: Denies chest pain and Reports dyspnea Respiratory: Respiratory: Reports cough, Denies pain with cough, Reports dyspnea and Denies wheezing Gastrointestinal: Gastrointestinal: Denies abdominal pain, Denies nausea and Denies vomiting Musculoskeletal: Musculoskeletal: Denies back pain Integumentary/Breasts: Skin/Breast: Denies rash Neurologic: Denies vertigo and Denies frequent falls Allergic/Immunologic: Allergic/Immunologic: Denies wheezing PMFSH Past Medical History Medical History Oropharyngeal dysphagia COVID-19 vaccination refused Refused influenza vaccine Diabetes mellitus with hyperglycemia, without long-term current use of insulin Anxiety as acute reaction to gross stress Mild intermittent asthma in adult without complication OAB (overactive bladder) Diabetes mellitus with microalbuminuria, without long-term current use of insulin Osteoarthritis, knee History of depression Osteopenia after menopause Overweight Varicose veins of right lower extremity History of ST elevation myocardial infarction (STEMI) Coronary artery disease involving [place] coronary artery Hypertension Refused pneumococcal vaccination Dyslipidemia Surgical History History of section Hx of myomectomy S/P left rotator cuff repair History of heart artery stent Family History Family History Father No problems noted. Mother No problems noted. 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 Current occupational exposures/hazards: No Cognitive needs: No Hearing needs: No Vision needs: Yes Physical Exam ED Vital Signs: Vital Signs - 24 hr 09/01/24 00:57 Temperature 97.1 F Pulse Rate 84 Respiratory Rate 18 Blood Pressure 168/67 H Pulse Oximetry 96 Oxygen Delivery Method Room Air BMI result Body Mass Index 25.9 Const General: healthy appearing, comfortable, no acute distress, alert and awake Nutritional Appearance: well nourished Orientation/consciousness: patient oriented x3 HENMT Head: Yes normocephalic and Yes atraumatic Eyes Eyelids: Yes eyelids normal Conjunctivae: conjunctivae normal Sclerae: sclerae normal Corneas: corneas normal Pupils: Equal, round and reactive pupils present EOM: EOMs intact bilaterally Neck Neck: Yes full ROM Resp Effort & Inspection: normal respiratory effort, able to speak in complete sentences, no audible wheezes and not labored Auscultation: clear to auscultation bilaterally Cardio Rate: regular rate Rhythm: regular rhythm GI Inspection: No distended Palpation (GI): Soft to palpation, not firm, nontender, no guarding and not rigid Skin General skin exam: elasticity normal Neuro General: patient oriented x3 Cranial nerves: Yes Equal, round and reactive pupils present and Yes Bilaterally intact EOM present Cognition (Neuro): normal cognition Extrem Other: Moving all extremities well without any obvious deformities Medical Decision Making Medical Decision Making MDM Narrative: 61-year-old female with past medical history as documented above presents for evaluation of worsening cough, shortness of breath. I reviewed her recent visit from 5 days ago. The patient has stable vital signs, her lungs are clear to auscultation. She has a history of asthma in his requesting a DuoNeb treatment. This will be ordered. I feel it is reasonable to try antibiotics with the patient given her multiple risk factors and the fact that she has tried supportive therapy for the last week with no improvement. The patient is Eliquis, I have a low suspicion for PE, I do not see any indication for further emergent workup at this time. Differential Diagnosis Differential Diagnoses: The differential diagnosis associated with the presentation includes Acute bronchitis Upper respiratory infection Pneumonia COVID-19 Influenza Prescription Management I considered prescription management with: Antibiotic Discharge Plan Discharge Clinical Impression: Acute bronchitis Patient Disposition: Home, Self-Care Instructions: Acute Bronchitis (ED) Additional Instructions: Continue your home medications. You may add azithromycin as prescribed Your lungs sound clear today Follow-up with your primary doctor Return for new or worsening symptoms Prescriptions: New azithromycin 250 mg tablet See Rx Instructions .ROUTE .COMPLEX Qty: 6 0RF Rx Instructions: For 250 mg dose pack: take 500 mg today (day 1), then 250 mg for 4 days (days 2-5) No Action FreeStyle Lite Strips Strip 1 strip miscellaneous BID Qty: 100 0RF fluticasone propionate 110 mcg/actuation HFA aerosol inhaler 1 puff inhalation Q12H Qty: 12 1RF Rx Instructions: rinse and gargle mouth after use Januvia 100 mg tablet 100 mg PO DAILY Qty: 30 5RF acetaminophen 325 mg capsule 325 mg PO QID PRN (Reason: leg pain) Qty: 30 0RF lisinopril 5 mg tablet 5 mg PO DAILY Qty: 90 0RF hydroxyzine HCl 10 mg tablet 10 mg PO .qd PRN (Reason: hives) Qty: 30 3RF ezetimibe 10 mg tablet 10 mg PO DAILY Qty: 90 1RF repaglinide 2 mg tablet 2 mg PO TID Qty: 90 1RF Rx Instructions: administer within 30 minutes of a meal or snack Farxiga 10 mg tablet 10 mg PO QAM Qty: 90 1RF docusate sodium 100 mg capsule 100 mg PO DAILY Qty: 90 1RF guaifenesin 200 mg/5 mL liquid 200 mg PO Q4H PRN (Reason: cough) Qty: 118 0RF prednisone 20 mg tablet 20 mg PO BID Qty: 10 0RF albuterol sulfate 90 mcg/actuation HFA aerosol inhaler 2 puff inhalation Q6H PRN (Reason: shortness of breath or wheezing) Qty: 8.5 0RF nitroglycerin 0.4 mg tablet, sublingual 0 mg sublingual (DME) lancets [FreeStyle Lancets] 28 gauge misc See Rx Instructions .ROUTE .MEDSUPPLY Qty: 100 Rx Instructions: As directed rosuvastatin 5 mg tablet 5 mg PO DAILY Qty: 30 5RF metoprolol succinate 200 mg tablet extended release 24 hr 200 mg PO DAILY multivitamin Tablet 1 tab PO DAILY cyclobenzaprine 10 mg tablet 10 mg PO BEDTIME PRN (Reason: for muscle spasm) Qty: 30 2RF celecoxib [Celebrex] 100 mg capsule 100 mg PO DAILY Qty: 30 2RF Print Language: Italian
[2024-09-01 01:48] VITALS: PULSE 86; RESP 16; O2SAT 97
[2024-09-01] MEDS: Albuterol/Iprat 2.5/0.5MG 3 ML AMPUL.NEB INHALE (01:48)
[2024-09-01 02:09] VITALS: BP 150/66; PULSE 86; RESP 18; TEMP 36.9; O2SAT 95; O2SAT 96
[2024-09-01 02:11] VITALS: BP 150/66; PULSE 86; RESP 18; TEMP 36.9; O2SAT 95
== END 2024-09-01 02:11 | disposition home or self-care (01) ==
PROVIDERS: Emergency Provider Emergency Medicine; PCP Internal Medicine
DX: J40 Bronchitis, not specified as acute or chronic (principal); R05.9 Cough, unspecified; I10 Essential (primary) hypertension; E11.9 Type 2 diabetes mellitus without complications; I25.10 Atherosclerotic heart disease of native coronary artery without angina pectoris; E78.5 Hyperlipidemia, unspecified; I48.0 Paroxysmal atrial fibrillation; Z79.01 Long term (current) use of anticoagulants
CPT/HCPCS: 94640; 99284; 99285

== ENCOUNTER 2024-09-06 13:08 | Emergency (ER) | payer OTHER, SELFPAY ==
[2024-09-06 13:15] VITALS: BP 154/82; PULSE 70; O2SAT 98
[2024-09-06 13:17] VITALS: BP 168/70; PULSE 69; RESP 16; TEMP 36.5; O2SAT 97; BMI 25.9
--- NOTE | 2024-09-06 16:18 | ED_ITS ---
HPI - Back Pain/Injury General Chief Complaint: Back Pain/Injury Stated Complaint: LOW BACK PAIN, HARD TIME AMBULATING Time Seen by Provider: 09/06/24 16:07 Source: patient, RN notes reviewed and old records reviewed Mode of arrival: ambulatory History of Present Illness ED Provider: Justa Hunter PA-C HPI Narrative: 69-year-old female with a past medical history of HTN, HLD, osteopenia, STEMI, overactive bladder, diabetes, anxiety, presenting to the ED complaining of right-sided low back pain radiating to thigh x1 week. Admits was seen at [facility] ED on the and had morphine given to her and was told to follow-up with [facility] for cortisone injection. States called for follow-up however can not get in until the end of the month. Admits to taking Tylenol at home without relief. Denies known injury, trauma, fall, numbness, tingling, weakness, incontinence/retention, hematuria/dysuria. Related Data Home Medications ?Medication ?Instructions ?Recorded ?Confirmed lancets 28 gauge (FreeStyle #100 ea 08/03/20 08/03/24 Lancets) metoprolol succinate 200 mg 200 mg PO DAILY 06/26/21 08/03/24 tablet,extended release 24 hr nitroglycerin 0.4 mg sublingual 0 mg sublingual 09/19/22 08/03/24 tablet multivitamin 1 tab PO DAILY 10/07/23 08/03/24 Previous Rx's ?Medication ?Instructions ?Recorded blood sugar diagnostic (FreeStyle 1 strip miscellaneous BID for 06/18/22 Lite Strips) diabetes mellitus #100 strips rosuvastatin 5 mg tablet 5 mg PO DAILY #30 tabs 04/29/23 fluticasone propionate 110 1 puff inhalation Q12H #12 grams 12/11/23 mcg/actuation HFA aerosol inhaler sitagliptin phosphate 100 mg 100 mg PO DAILY #30 tabs 12/24/23 tablet (Januvia) acetaminophen 325 mg capsule 325 mg PO QID PRN leg pain #30 caps 01/11/24 celecoxib 100 mg capsule (Celebrex) 100 mg PO DAILY #30 caps 01/27/24 cyclobenzaprine 10 mg tablet 10 mg PO BEDTIME PRN for muscle 02/06/24 spasm #30 tabs lisinopril 5 mg tablet 5 mg PO DAILY #90 tabs 02/27/24 hydroxyzine HCl 10 mg tablet 10 mg PO .qd PRN hives #30 tabs 06/21/24 ezetimibe 10 mg tablet 10 mg PO DAILY #90 tabs 06/23/24 repaglinide 2 mg tablet 2 mg PO TID #90 tabs 06/23/24 dapagliflozin propanediol 10 mg 10 mg PO QAM #90 tabs 07/13/24 tablet (Farxiga) docusate sodium 100 mg capsule 100 mg PO DAILY #90 caps 07/13/24 albuterol sulfate 90 mcg/actuation 2 puff inhalation Q6H PRN 08/27/24 aerosol inhaler shortness of breath or wheezing #8.5 grams guaifenesin 200 mg/5 mL oral liquid 200 mg (5 mL) PO Q4H PRN cough 08/27/24 #118 mL prednisone 20 mg tablet 20 mg PO BID #10 tabs 08/27/24 azithromycin 250 mg tablet See Rx Instructions PO .COMPLEX #6 09/01/24 tabs acetaminophen 500 mg tablet 500 mg PO Q6H PRN fever or pain 09/06/24 (Tylenol Extra Strength) #14 tabs cyclobenzaprine 5 mg tablet 5 mg PO Q8H PRN pain (scale score 09/06/24 7-10) 5 days #14 tabs lidocaine 5 % topical patch 1 patch topical DAILY PRN pain #30 09/06/24 (Lidoderm) ea Allergies Allergy/AdvReac Type Severity Reaction Status Date / Time atorvastatin [From LIPITOR] AdvReac Intermediate STOMACH Verified 09/06/24 13:19 ACHE oxycodone [From OXYCONTIN] AdvReac Intermediate SENSORY Verified 09/06/24 13:19 HALLUCINATIONS sulfamethoxazole AdvReac Intermediate chills Verified 09/06/24 13:19 [From Bactrim] vitamin d AdvReac Intermediate Hallucinati Uncoded 09/06/24 13:19 ons Review of Systems Review of Systems: Yes all other systems are reviewed and are negative Constitutional: Constitutional: Reports as per HPI Neurologic: Denies Sensory deficit (Neuro) [facility] Past Medical History Attestation statement: The following information was validated with the patient. Source: old records reviewed Medical History Oropharyngeal dysphagia COVID-19 vaccination refused Refused influenza vaccine Diabetes mellitus with hyperglycemia, without long-term current use of insulin Anxiety as acute reaction to gross stress Mild intermittent asthma in adult without complication OAB (overactive bladder) Diabetes mellitus with microalbuminuria, without long-term current use of insulin Osteoarthritis, knee History of depression Osteopenia after menopause Overweight Varicose veins of right lower extremity History of ST elevation myocardial infarction (STEMI) Coronary artery disease involving [place] coronary artery Hypertension Refused pneumococcal vaccination Dyslipidemia Surgical History History of section Hx of myomectomy S/P left rotator cuff repair History of heart artery stent Family History Family History Father No problems noted. Mother No problems noted. 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 Current occupational exposures/hazards: No Cognitive needs: No Hearing needs: No Vision needs: Yes Physical Exam Vital Signs: Vital Signs: Last Vital Signs Temp 98.8 F 09/06/24 18:01 Pulse 81 09/06/24 18:01 Resp 15 09/06/24 18:01 BP 134/59 L 09/06/24 18:01 Pulse Ox 98 09/06/24 18:01 O2 Del Method Room Air 09/06/24 18:01 BMI result Body Mass Index 25.9 Const: General: cooperative, healthy appearing and no acute distress Orientation/consciousness: patient oriented x3 Limitations: no limitations HEENT: Head: Yes normal to inspection and Yes atraumatic Ears: hearing grossly normal bilaterally General nose exam: Normal external nose present Face and sinus: Yes normal facial exam Eyes: General: appearance normal, both eyes and all related structures EOM: EOMs intact bilaterally Neck: Neck: Yes normal visual inspection and Yes no meningeal signs Resp: Effort & Inspection: normal respiratory effort and no respiratory distress Cardio: Rate: regular rate GI: Inspection: Yes normal to inspection Palpation (GI): Soft to palpation, nontender, no guarding and not rigid : General: Yes no CVA tenderness Back/Spine/Pelvis: Other: No midline cervical/thoracic/lumbar spinous tenderness/step-off or deformity. + mild right upper buttock/lower lumbar reproducible MSK tenderness. No rash/erythema or ecchymosis Back: no CVA tenderness Skin: Rashes: no rashes Wounds: no wounds Neuro: Other: Strength intact throughout. No saddle anesthesia. Sensation intact to light touch. Neurovascular intact distally General: patient oriented x3, gait normal, tone normal and no meningeal signs Cranial nerves: Yes CN's II-XII intact bilaterally Gait exam (Neuro): Normal gait present Motor exam (neuro): 5/5 motor strength present throughout Sensory Exam: No Sensory deficit (Neuro) Extrem: General: Yes normal to inspection Course Course Course Narrative: -1826--on re-evaluation patient states she is unable to ambulate secondary to pain even after IM Toradol and p.o. Flexeril. > we will give p.o. morphine and re-evaluate -1853--patient is up and ambulating in the ED without difficulty after p.o. morphine. Results discussed with patient including worrisome signs and symptoms and strict return precautions, and when to return to the emergency department. They verbalized understanding and feel safe for discharge at this time. Medications Administered Discontinued Medications Generic Name Dose Route Start Last Admin Trade Name Freq PRN Reason Stop Dose Admin Cyclobenzaprine HCl 10 mg 09/06/24 16:27 09/06/24 17:43 Cyclobenzaprine Hcl 10 Mg Tablet PO 09/06/24 16:28 10 mg ONCE ONE Administration Ketorolac Tromethamine 30 mg 09/06/24 16:27 09/06/24 17:45 Ketorolac Tromethamine 30 Mg/Ml Vial IM 09/06/24 16:28 30 mg ONCE ONE Administration Medical Decision Making Medical Decision Making MDM Narrative: 69-year-old female with a past medical history of HTN, HLD, osteopenia, STEMI, overactive bladder, diabetes, anxiety, presenting to the ED complaining of right-sided low back pain radiating to thigh x1 week. On exam vital signs stable, NAD, nontoxic appearing, physical exam as noted above. No midline spinous tenderness throughout or red flag symptoms. Concern for MSK pain/strain vs sciatica and osteoarthritis. Low suspicion for fracture, cauda equina/cord compression, epidural abscess, renal stone or pyelo. Unlikely intra-abdominal pathology Plan: Pain management, re-evaluate Please refer to course for remaining clinical decision making, interpretation of labs/imaging results, and discussions with consultants and/or family members. Differential Diagnosis Differential Diagnoses: The differential diagnosis associated with the presentation includes As above Lab Data MDM Lab Attestation statement: I reviewed the patient's lab results. Radiology Impression Discussion of test interpretation with radiology: I have reviewed the radiologist's reading. External Record Review External record reviewed: Inpatient record, Office record, Outpatient record, Prior outpatient labs, Prior outpatient radiology, Primary care record and Outside ED record Tests considered The following testing was considered but not selected: As above Prescription Management I considered prescription management with: Pain Medication Chronic Conditions Patient?s care impacted by: Diabetes, Hypertension and Other Social Determinants Patient?s care significantly limited by Social Determinants of Health including: Problems related to primary support group and Other Social Determinant of Health Discharge Plan Discharge Clinical Impression: Lumbar radiculopathy Patient Disposition: Home, Self-Care Instructions: Lumbar Radiculopathy (ED) Additional Instructions: Your pain is likely musculoskeletal Flexeril is a muscle relaxer, take at night as it makes you drowsy, do not drive, drink alcohol, or operate machinery while taking it Lidoderm patches are numbing patches, apply to painful area In addition take Tylenol at home If symptoms persist or worsen, pain becomes unbearable, you developed urinary retention or incontinence, or weakness return to the ED Prescriptions: New acetaminophen [Tylenol Extra Strength] 500 mg tablet 500 mg PO Q6H PRN (Reason: fever or pain) Qty: 14 0RF lidocaine [Lidoderm] 5 % adhesive patch,medicated 1 patch topical DAILY MDD remove after 12 hours PRN (Reason: pain) Qty: 30 0RF Rx Instructions: leave on most painful area for up to 12 hrs cyclobenzaprine 5 mg tablet 5 mg PO Q8H PRN (Reason: pain (scale score 7-10)) 5 Days Qty: 14 0RF No Action FreeStyle Lite Strips Strip 1 strip miscellaneous BID Qty: 100 0RF fluticasone propionate 110 mcg/actuation HFA aerosol inhaler 1 puff inhalation Q12H Qty: 12 1RF Rx Instructions: rinse and gargle mouth after use Januvia 100 mg tablet 100 mg PO DAILY Qty: 30 5RF acetaminophen 325 mg capsule 325 mg PO QID PRN (Reason: leg pain) Qty: 30 0RF lisinopril 5 mg tablet 5 mg PO DAILY Qty: 90 0RF hydroxyzine HCl 10 mg tablet 10 mg PO .qd PRN (Reason: hives) Qty: 30 3RF ezetimibe 10 mg tablet 10 mg PO DAILY Qty: 90 1RF repaglinide 2 mg tablet 2 mg PO TID Qty: 90 1RF Rx Instructions: administer within 30 minutes of a meal or snack Farxiga 10 mg tablet 10 mg PO QAM Qty: 90 1RF docusate sodium 100 mg capsule 100 mg PO DAILY Qty: 90 1RF azithromycin 250 mg tablet See Rx Instructions .ROUTE .COMPLEX Qty: 6 0RF Rx Instructions: For 250 mg dose pack: take 500 mg today (day 1), then 250 mg for 4 days (days 2-5) guaifenesin 200 mg/5 mL liquid 200 mg PO Q4H PRN (Reason: cough) Qty: 118 0RF prednisone 20 mg tablet 20 mg PO BID Qty: 10 0RF albuterol sulfate 90 mcg/actuation HFA aerosol inhaler 2 puff inhalation Q6H PRN (Reason: shortness of breath or wheezing) Qty: 8.5 0RF nitroglycerin 0.4 mg tablet, sublingual 0 mg sublingual (DME) lancets [FreeStyle Lancets] 28 gauge misc See Rx Instructions .ROUTE .MEDSUPPLY Qty: 100 Rx Instructions: As directed rosuvastatin 5 mg tablet 5 mg PO DAILY Qty: 30 5RF metoprolol succinate 200 mg tablet extended release 24 hr 200 mg PO DAILY multivitamin Tablet 1 tab PO DAILY cyclobenzaprine 10 mg tablet 10 mg PO BEDTIME PRN (Reason: for muscle spasm) Qty: 30 2RF celecoxib [Celebrex] 100 mg capsule 100 mg PO DAILY Qty: 30 2RF Referrals: [facility] [place] [facility] [Provider Group] [facility] [place] [facility] [Provider Group] Carri Kohli MD [Primary Care Provider] - Print Language: Canadian
[2024-09-06] MEDS: Cyclobenzaprine HCl 10 MG TABLET PO (17:43)
[2024-09-06] MEDS: Ketorolac Tromethamine 30 MG/ML VIAL IM (17:45)
[2024-09-06 18:01] VITALS: BP 134/59; PULSE 81; RESP 15; TEMP 37.1; O2SAT 98
[2024-09-06] MEDS: Morphine Sulfate Immed Release 15 MG TABLET PO (19:09)
[2024-09-06] MEDS: Lidocaine 4 % Patch ADH..PATCH 1 PATCH TRANSDERMA (19:09)
[2024-09-06 19:13] VITALS: BP 134/59; PULSE 81; RESP 15; TEMP 37.1; O2SAT 98
== END 2024-09-06 19:13 | disposition home or self-care (01) ==
PROVIDERS: Emergency Provider Emergency Medicine; PCP Internal Medicine
DX: M54.16 Radiculopathy, lumbar region (principal); M54.50 Low back pain, unspecified; E11.9 Type 2 diabetes mellitus without complications; I10 Essential (primary) hypertension; E78.5 Hyperlipidemia, unspecified; Z79.899 Other long term (current) drug therapy
CPT/HCPCS: 96372; 99283; 99284; J1885

== ENCOUNTER 2024-09-10 08:30 | Outpatient (AMB) | payer OTHER, SELFPAY ==
[2024-09-10 08:47] VITALS: BP 122/56; PULSE 75; O2SAT 96; BMI 25.9
--- NOTE | 2024-09-10 08:47 | A.OFFVIS_ITS ---
Vital Signs 3 09/10/24 08:47 Height 4 ft 11 in Weight 128 lb BMI 25.9 BP 122/56 L Blood Pressure Location Rt brachial Position Sitting Pulse 75 Pulse Source Pulse Oximeter Pulse Oximetry (%) 96 Oxygen Delivery Method Room Air Intake Visit Reasons: Lumbar Radiculopathy/ED Referral Allergies atorvastatin [From LIPITOR] Adverse Reaction (Intermediate, Verified 09/10/24 08:47) STOMACH ACHE oxycodone [From OXYCONTIN] Adverse Reaction (Intermediate, Verified 09/10/24 08:47) SENSORY HALLUCINATIONS sulfamethoxazole [From Bactrim] Adverse Reaction (Intermediate, Verified 09/10/24 08:47) chills vitamin d Adverse Reaction (Intermediate, Uncoded 09/10/24 08:47) Hallucinations HPI Comments Details: Patient presents back to the office today for follow-up lower back pain. Complaining of right lower back pain without radiation down the right leg Patient previously underwent diagnostic medial branch blocks for the left side, she states that since then she has had no pain over that area. But she has been suffering with similar pain on the right side Physical therapy was completed however there was no improvement in her symptoms. Unable to do home exercise program as it is too painful. Tylenol has provided little relief. She is unable to use nonsteroidal anti- inflammatory medications as she is on Eliquis She finds some improvement with cyclobenzaprine and duloxetine Pain today is rated as a 10/10, constant Prior: Meena is a very pleasant 69 year old female who presents to the office today for follow-up, 3 days status post left diagnostic L3-L4 DR L5 MBB. Patient reports the injections were very painful. She did feel numb over the area where she normally has pain after the injections, but states that the pain remains the same. She denies any improvement in her symptoms after the diagnostic injections. Patient does not wish to proceed with any further injections. She does report improvement in her symptoms with Flexeril at bedtime in the past, she would like to try that again. X-rays were reviewed, results as per below Prior: Meena is a very pleasant 68 year old female who presents to the office today for evaluation and management of her chronic lower back pain. She reports suffering with this pain for her whole life but it significantly worsened after receiving her covid booster 11/20/2021. At that time she was evaluated in the ER, MRI was performed, results as per below. Pain midline/left lumbar area with pain to left hip and groin. She denies radiation of the pain down legs. Denies numbness, tingling or weakness. Does report feeling like her mobility is limited due to the pain. Worsening pain with sitting or standing for too long, turning in bed or movement in general. She denies red flag symptoms including new loss or bowel, bladder or saddle anesthesia. Patient has tried PT, most recently completed less than a year ago with no improvement in symptoms, she attempts HEP but is limited d/t pain. She takes tylenol with minimal effect. Has tried muscle relaxers, heat, ice and topical medications without relief. She underwent manual manipulation with chiropractor but made it worse. She has previously received injections to her lower back at [facility] but they did nothing . Pain today rated as 5/10, constant but worse with movement. In terms of muscle damage condition is described as aching, sharp, stabbing. Condition is negatively impacting patients enjoyment of life, general activity, sleep, walking and ability to perform activities of daily living. Patient currently taking Apixaban, will require clearance for all procedures. [facility] Medical History Oropharyngeal dysphagia COVID-19 vaccination refused Refused influenza vaccine Diabetes mellitus with hyperglycemia, without long-term current use of insulin Anxiety as acute reaction to gross stress Mild intermittent asthma in adult without complication OAB (overactive bladder) Diabetes mellitus with microalbuminuria, without long-term current use of insulin Osteoarthritis, knee History of depression Osteopenia after menopause Overweight Varicose veins of right lower extremity History of ST elevation myocardial infarction (STEMI) 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 Hypertension Refused pneumococcal vaccination Dyslipidemia Surgical History History of section Hx of myomectomy S/P left rotator cuff repair History of heart artery stent Family History Father No problems noted. Mother No problems noted. 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 Answers questions appropriately. Fully engaged in examination. Skin: warm, dry, intact HEENT: Normocephalic. Hearing intact. Cardiac: External chest normal in appearance. Respiratory: No cough, audible wheezing or stridor. Abdomen: without gross distension. MS: No obvious swelling or deformities. Able to transition from sit to stand unassisted. Ambulates with bilaterally normal heel strike and toe off Tender to palpation over left lumbar paraspinal and midline lumbar vertebrae SLR neg bilaterally facet loading positive strength 5/5 BLE. Decreased lumbar range of motion secondary to pain Neurological: Oriented to person, place, time and situation. Thought process intact. Ambulates with the use of a cane Psychiatric: Appropriate mood and affect. Good judgment and insight. Results Reviewed Results Reviewed: 11/21/2023 LUMBAR SPINE: Slight leftward curvature of the lumbar spine. Facet arthritis in the lower lumbar spine. Degenerative changes in the imaged lower thoracic spine. Atherosclerotic aortoiliac calcifications. Progression of advanced multilevel lumbar spondylosis with multilevel loss of disc space height, most notable at L5-S1. AP PELVIS AND LEFT HIP: Moderate degenerative changes on single AP view of the pelvis which includes the right hip. Surgical clips in the right inguinal region. LEFT HIP: Moderate degenerative changes left hip with joint space narrowing and hypertrophic change. Redemonstration of asymmetric hypertrophic change with subjacent lucency along the superolateral aspect of the left acetabulum. IMPRESSION: 1. Progression of advanced multilevel lumbar spondylosis, most notable at L5-S1. 2. Facet arthritis in the lower lumbar spine. 3. Moderate degenerative changes in the left hip. 4. Correlation with clinical exam recommended to determine further management. If there is concern for fracture or other underlying pathology, MRI could be obtained for further evaluation. Assessment & Plan Assessment & Plan (1) Lumbar spondylosis: Code(s): M47.816 - Spondylosis without myelopathy or radiculopathy, lumbar region Category: Medical (2) Left hip pain: Code(s): M25.552 - Pain in left hip Category: Medical Plan Patient has exhausted conservative therapy including OTC medications, topical medications, muscle relaxers, PT, HEP and previous attempts at injections. Unable to take nonsteroidal anti-inflammatory medications due to current use of Eliquis. Cyclobenzaprine 5 mg p.o. twice daily as needed. Refill sent today. Discussed options for treatment including diagnostic interventional testing, epidural steroid injections, peripheral nerve stimulation with Sprint, RFA and more permanent neuromodulation. Will schedule for fluoroscopy guided diagnostic right L3 L4 L5 MBBs with local anesthetic. She requests Ativan for this procedure. Patient will need clearance prior to procedure, she is currently taking Apixaban. All questions and concerns have been answered and patient agrees with the plan. Follow up after injections and sooner if needed. Medications: Changed 2 From cyclobenzaprine 5 mg PO Q8H 5 days PRN 14 tabs 0RF pain (scale score 7-10) To cyclobenzaprine 5 mg PO BID PRN 30 tabs 0RF pain (scale score 7-10) Coding Level of Care Code Est Pt Level 3 (91953) Complex EM visit Add On G2211 Diagnoses Lumbar spondylosis M47.816 Left hip pain M25.552
== END 2024-09-10 09:07 | disposition home or self-care (01) ==
LOC: HO.PMC 08:31
PROVIDERS: PCP Internal Medicine; Visit Provider Registered Nurse Emergency
DX: M47.816 Spondylosis without myelopathy or radiculopathy, lumbar region (principal); M25.552 Pain in left hip
CPT/HCPCS: 99213; G2211

== ENCOUNTER → 2024-09-10 08:30 | Outpatient (BNVA) | payer OTHER, SELFPAY | PROVIDERS: PCP Internal Medicine; Visit Provider Registered Nurse Emergency | DX: M47.816 Spondylosis without myelopathy or radiculopathy, lumbar region (principal); M25.552 Pain in left hip | CPT/HCPCS: 99212 ==

== ENCOUNTER 2024-10-07 13:24 | Outpatient (AMB) | payer OTHER, SELFPAY ==
--- NOTE | 2024-10-07 13:35 | A.OFFVIS_ITS ---
VS Expanded 10/07/24 13:36 Height 4 ft 11 in Weight 128 lb 4.944 oz BMI 25.9 Intake Visit Reasons: T2DM Allergies atorvastatin [From LIPITOR] Adverse Reaction (Intermediate, Verified 09/10/24 08:47) STOMACH ACHE oxycodone [From OXYCONTIN] Adverse Reaction (Intermediate, Verified 09/10/24 08:47) SENSORY HALLUCINATIONS sulfamethoxazole [From Bactrim] Adverse Reaction (Intermediate, Verified 09/10/24 08:47) chills vitamin d Adverse Reaction (Intermediate, Uncoded 09/10/24 08:47) Hallucinations Nutrition Presentation Details: Pt presents for MNT for T2DM Pt reports monitoring blood sugar -* di dnto bring record to today's appt). Pt states her fasting bg are in the 130s Pt reports understanding relationship of foods and BG Pt reports keeping hydrated , having water with meals/snacks BS Monitoring Most Recent Diabetes Results: No Data to Display PFSH Medical History Oropharyngeal dysphagia COVID-19 vaccination refused Refused influenza vaccine Diabetes mellitus with hyperglycemia, without long-term current use of insulin Anxiety as acute reaction to gross stress Mild intermittent asthma in adult without complication OAB (overactive bladder) Diabetes mellitus with microalbuminuria, without long-term current use of insulin Osteoarthritis, knee History of depression Osteopenia after menopause Overweight Varicose veins of right lower extremity History of ST elevation myocardial infarction (STEMI) Coronary artery disease involving [place] coronary artery Hypertension Refused pneumococcal vaccination Dyslipidemia Surgical History History of section Hx of myomectomy S/P left rotator cuff repair History of heart artery stent Family History Father No problems noted. Mother No problems noted. 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 Current occupational exposures/hazards: No Cognitive needs: No Hearing needs: No Vision needs: Yes Female Reproductive History Menstrual Age of Menarche: 12 Assessment & Plan Assessment & Plan (1) Diabetes mellitus with microalbuminuria, without long-term current use of insulin: Code(s): E11.29 - Type 2 diabetes mellitus with other diabetic kidney complication; R80.9 - Proteinuria, unspecified Category: Medical Plan Choosing nutrient dense foods, and fiber rich foods Used wt : (62.7 kg on 10/2023), 60 kg (04/2024), 60 kg ( 07/27) Est kcal needs as per MSJ: 1386 (based on 55 kg, wt from 10/2022) est protein needs as per 0.8 -1.0 g/kg bw: 44-55 g/d est fluid needs as per 25 ml/kg bw: 1375 ml/d Rec fiber: 25 g/d Rec Na: <1500 mg/d Recommend fiber intake : 8-10 g per day and gradually increase to 25-28 g per day as tolerated Recommend sodium intake per day : less than 2000 mg Educated patient on: ( R = reviewed V = verbalizes understanding N/R = needs review N/A = not applicable * Food sources of carbohydrate, adequate serving sizes and its role in various health conditions: R V * Differences between complex carbohydrates a simple carbohydrates, role of fiber in diet: R V * Differences between types of fats and role in diet (mono on saturated fat fatty acids, saturated fatty acids, trans fats): R * Food sources of sodium in salt and healthy modifications for heart health in kidney health: NR * Healthy plate method concept: R V * Physical activity: Benefits a precaution: R V * Dietary prevention of Hyperglycemia: R V * monitoring blood sugar for self assessment: R Patient Instructions: follow healthy plate method watch portions of desserts and similar foods keep physically activity as able monitor blood sugar fasting and 2 hours after a meal make f/u appointment with your PCP Coding Level of Care Code Nutr Indiv Subseq (43379) Diagnoses Diabetes mellitus with microalbuminuria, without long-term current use of insu natalie E11.29; R80.9 Time Spent (min) 20
[2024-10-07 13:36] VITALS: BMI 25.9
== END 2024-10-07 13:54 | disposition home or self-care (01) ==
PROVIDERS: PCP Internal Medicine; Visit Provider Dietitian, Registered
DX: E11.29 Type 2 diabetes mellitus with other diabetic kidney complication (principal); R80.9 Proteinuria, unspecified

== ENCOUNTER → 2024-10-07 13:24 | Outpatient (BNVA) | payer OTHER, SELFPAY | PROVIDERS: PCP Internal Medicine; Visit Provider Dietitian, Registered | DX: E11.65 Type 2 diabetes mellitus with hyperglycemia (principal); E11.29 Type 2 diabetes mellitus with other diabetic kidney complication; R80.9 Proteinuria, unspecified; E66.3 Overweight; Z68.25 Body mass index [BMI] 25.0-25.9, adult; Z71.3 Dietary counseling and surveillance | CPT/HCPCS: 97803 ==

== ENCOUNTER 2024-10-15 08:39 | Outpatient (AMB) | payer OTHER, SELFPAY ==
--- NOTE | 2024-10-15 08:40 | MHC.PC.OV ---
Intake Visit Reasons: [id number] Allergies atorvastatin [From LIPITOR] Adverse Reaction (Intermediate, Verified 10/15/24 09:34) STOMACH ACHE oxycodone [From OXYCONTIN] Adverse Reaction (Intermediate, Verified 10/15/24 09:34) SENSORY HALLUCINATIONS sulfamethoxazole [From Bactrim] Adverse Reaction (Intermediate, Verified 10/15/24 09:34) chills vitamin d Adverse Reaction (Intermediate, Uncoded 10/15/24 09:34) Hallucinations Medication List - Last Reconciled 10/15/24 by Carri Kohli MD acetaminophen (Tylenol Extra Strength) 500 mg PO Q6H PRN albuterol sulfate 90 mcg/actuation 2 puffs inhalation Q6H PRN apixaban (Eliquis) 5 mg PO BID artificial tear(uhvfu-stn-ecq) 0.1-0.3-0.2 % drps ophthalmic (eye) blood sugar diagnostic (FreeStyle Lite Strips) 1 strip miscellaneous BID celecoxib (Celebrex) 100 mg PO DAILY PRN cyclobenzaprine 5 mg PO BID PRN dapagliflozin propanediol (Farxiga) 10 mg PO QAM docusate sodium 100 mg PO DAILY ezetimibe 10 mg PO DAILY fluticasone propionate 110 mcg/actuation 1 puff inhalation Q12H hydroxyzine HCl 10 mg PO .qd PRN lancets (FreeStyle Lancets) As directed lidocaine 5% (Lidoderm) 1 patch topical DAILY PRN MDD remove after 12 hours lisinopril 5 mg PO DAILY metoprolol succinate ER 200 mg PO DAILY multivitamin 1 tab PO DAILY nitroglycerin 0 mg sublingual repaglinide 2 mg PO TID rosuvastatin 5 mg PO DAILY sitagliptin phosphate (Januvia) 100 mg PO DAILY Tobacco use date assessed: 04/01/24 Dental Screening Dental Screen Date: 04/01/24 HPI [id number] HPI Details - The patient is a 69-year-old female here today via telehealth complaining urinary incontinence and frequent urination. - Onset of urinary incontinence associated with an inability to control the urge to urinate, particularly when approaching the bathroom. - Uncontrolled Type 2 Diabetes Mellitus contributing to increased urination; last HbA1c was high at 8.6%, indicating poor glycemic control. Unable to tolerate more metformin due to severe GI complaints, currently taking Farxiga 10 mg once a day, Januvia 100 mg once a day and repaglinide 2 mg 1 tablet 3 times a day with meals but patient states that she has only been using it once or twice a day as she has irregular eating habits. Drinks a lot of fruit juices and diet soda, can not tolerate drinking plain water. FORMERLY [facility], [facility]–1983 Medical History (Updated 10/15/24 @ 09:53 by Carri Kohli MD) Metformin adverse reaction Urinary incontinence, mixed Oropharyngeal dysphagia COVID-19 vaccination refused Refused influenza vaccine Diabetes mellitus with hyperglycemia, without long-term current use of insulin Anxiety as acute reaction to gross stress Mild intermittent asthma in adult without complication OAB (overactive bladder) Diabetes mellitus with microalbuminuria, without long-term current use of insulin Osteoarthritis, knee History of depression Osteopenia after menopause Overweight Varicose veins of right lower extremity History of ST elevation myocardial infarction (STEMI) Coronary artery disease involving [place] coronary artery Hypertension Refused pneumococcal vaccination Dyslipidemia Surgical History History of section Hx of myomectomy S/P left rotator cuff repair History of heart artery stent Family History Father No problems noted. Mother No problems noted. 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 Cabrera Draper, Shanae Hood, Nathaniel Solorio and colleagues, with an educational zeinab from [employer]. Review of Systems Const Denies fever(s), Denies headache(s) and Denies weakness Eyes Denies change in vision ENT Denies dizziness, Denies headache(s), Denies nasal congestion and Denies nasal discharge Card Denies chest pain, Denies lightheadedness, Denies palpitations and Denies dyspnea Resp Denies cough and Denies dyspnea GI Denies abdominal pain, Denies change in bowel habits and Denies heartburn Reports as per HPI, Denies dysuria, Denies vaginal discharge and Denies vaginal pruritus Musc Reports back pain and Reports stiffness Skin/Breast Denies lesions and Denies rash Neuro Denies dizziness, Denies headache(s) and Denies weakness Endo Reports polydipsia, Reports polyuria and Denies palpitations [place]/Lymph Reports no additional complaints Physical exam (Primary Care) Tobacco/Smoking Status: Tobacco use Status Tobacco use date assessed 04/01/24 10/15/24 08:40 Patient Tobacco Use Status Never used Tobacco 10/15/24 08:40 e-Cigarette/Vaping Use Never Used 10/15/24 08:40 Thrive Assessment: Date of Thrive Assessment Date Thrive assessed 04/29/23 10/15/24 08:40 Telehealth Telehealth Telehealth Platform: [employer] Location of provider rendering services: practice address Location of patient: address on file Patient Identification confirmed using: Name, : Yes Telehealth method: video Patient verbally consented to treatment: Yes Patient verbally consented to billing insurance company: Yes Patient informed of any privacy concerns related to visit: Yes Minutes spent on Phone/Video with Pt.: 20 Coding Level of Care Code Tele Est Pt Level 4 (55162) Complex EM visit Add On G2211 Diagnoses Diabetes mellitus with microalbuminuria, without long-term current use of insulin E11.29; R80.9 Urinary incontinence, mixed N39.46 Adverse effect of metformin, subsequent encounter T38.3X5D Encounter type: subsequent encounter Assessment & Plan Assessment & Plan (1) Diabetes mellitus with microalbuminuria, without long-term current use of insulin: Code(s): E11.29 - Type 2 diabetes mellitus with other diabetic kidney complication; R80.9 - Proteinuria, unspecified Category: Medical Plan: - Recommend blood work before the next appointment to evaluate current diabetic control. - Prescribed Mybetriq 25 mg once a day to manage urinary incontinence, pending approval - continue taking Farxiga 10 mg once a day before breakfast, and reminded patient that she has to adhere to a low carbohydrate diet to avoid having polyuria - Encourage strict diet monitoring to avoid excessive sugar intake. - ordered Urology consultation to explore additional interventions for incontinence . - Discuss alternatives to high sugar and carbonated beverages. Patient was informed and verbally consented to the use of an ambient scribe for clinic note documentation during this visit. (2) Urinary incontinence, mixed: Code(s): N39.46 - Mixed incontinence Category: Medical (3) Metformin adverse reaction: Code(s): T38.3X5A - Adverse effect of insulin and oral hypoglycemic [antidiabetic] drugs, initial encounter Category: Medical Qualifiers: Encounter type: subsequent encounter Qualified Code(s): T38.3X5D - Adverse effect of insulin and oral hypoglycemic [antidiabetic] drugs, subsequent encounter Plan - Prescribed Mybetriq 25 mg once a day to manage urinary incontinence, pending approval - continue taking Farxiga 10 mg once a day before breakfast, and reminded patient that she has to adhere to a low carbohydrate diet to avoid having polyuria - Encourage strict diet monitoring to avoid excessive sugar intake. - ordered Urology consultation to explore additional interventions for incontinence . - Discuss alternatives to high sugar and carbonated beverages. - Reminded patient to have fasting labs done at least a week before the next appointment to evaluate current diabetic control. Patient was informed and verbally consented to the use of an ambient scribe for clinic note documentation during this visit. Orders: Orders Alanine Aminotransferase 11/17/24 Carri Kohli MD E11.29 - Type 2 diabetes mellitus with other diabetic kidney complication, E66.3 - Overweight, E78.5 - Hyperlipidemia, unspecified, I10 - Essential (primary) hypertension, I25.10 - Atherosclerotic heart disease of [place] coronary artery without angina pectoris, I48.0 - Paroxysmal atrial fibrillation, N39.46 - Mixed incontinence, R80.9 - Proteinuria, unspecified Basic Metabolic Panel Fasting 11/17/24 Carri Kohli MD E11.29 - Type 2 diabetes mellitus with other diabetic kidney complication, E66.3 - Overweight, E78.5 - Hyperlipidemia, unspecified, I10 - Essential (primary) hypertension, I25.10 - Atherosclerotic heart disease of [place] coronary artery without angina pectoris, I48.0 - Paroxysmal atrial fibrillation, N39.46 - Mixed incontinence, R80.9 - Proteinuria, unspecified Microalbumin, Random (w Creat) 11/17/24 Carri Kohli MD E11.29 - Type 2 diabetes mellitus with other diabetic kidney complication, E66.3 - Overweight, E78.5 - Hyperlipidemia, unspecified, I10 - Essential (primary) hypertension, I25.10 - Atherosclerotic heart disease of [place] coronary artery without angina pectoris, I48.0 - Paroxysmal atrial fibrillation, N39.46 - Mixed incontinence, R80.9 - Proteinuria, unspecified Complete Blood Count Auto Diff 11/17/24 Carri Kohli MD E11.29 - Type 2 diabetes mellitus with other diabetic kidney complication, E66.3 - Overweight, E78.5 - Hyperlipidemia, unspecified, I10 - Essential (primary) hypertension, I25.10 - Atherosclerotic heart disease of [place] coronary artery without angina pectoris, I48.0 - Paroxysmal atrial fibrillation, N39.46 - Mixed incontinence, R80.9 - Proteinuria, unspecified Hemoglobin A1c 11/17/24 Carri Kohli MD E11.29 - Type 2 diabetes mellitus with other diabetic kidney complication, E66.3 - Overweight, E78.5 - Hyperlipidemia, unspecified, I10 - Essential (primary) hypertension, I25.10 - Atherosclerotic heart disease of [place] coronary artery without angina pectoris, I48.0 - Paroxysmal atrial fibrillation, N39.46 - Mixed incontinence, R80.9 - Proteinuria, unspecified Lipid Panel 11/17/24 Carri Kohli MD E11.29 - Type 2 diabetes mellitus with other diabetic kidney complication, E66.3 - Overweight, E78.5 - Hyperlipidemia, unspecified, I10 - Essential (primary) hypertension, I25.10 - Atherosclerotic heart disease of [place] coronary artery without angina pectoris, I48.0 - Paroxysmal atrial fibrillation, N39.46 - Mixed incontinence, R80.9 - Proteinuria, unspecified Aspartate Amino Transferase 11/17/24 Carri Kohli MD E11.29 - Type 2 diabetes mellitus with other diabetic kidney complication, E66.3 - Overweight, E78.5 - Hyperlipidemia, unspecified, I10 - Essential (primary) hypertension, I25.10 - Atherosclerotic heart disease of [place] coronary artery without angina pectoris, I48.0 - Paroxysmal atrial fibrillation, N39.46 - Mixed incontinence, R80.9 - Proteinuria, unspecified Vitamin D 25-OH Total 11/17/24 Carri Kohli MD E11.29 - Type 2 diabetes mellitus with other diabetic kidney complication, E66.3 - Overweight, E78.5 - Hyperlipidemia, unspecified, I10 - Essential (primary) hypertension, I25.10 - Atherosclerotic heart disease of [place] coronary artery without angina pectoris, I48.0 - Paroxysmal atrial fibrillation, N39.46 - Mixed incontinence, R80.9 - Proteinuria, unspecified Medications: New mirabegron ER (Myrbetriq) 25 mg PO DAILY 30 tabs 1RF Carri Kohli MD Changed From celecoxib (Celebrex) 100 mg PO DAILY 30 caps 2RF To celecoxib (Celebrex) 100 mg PO DAILY PRN Alexis Perez MD Refilled dapagliflozin propanediol (Farxiga) 10 mg PO QAM 90 tabs 1RF Carri Kohli MD repaglinide administer within 30 minutes of a meal or snack 2 mg PO TID 90 tabs 1RF Carri Kohli MD sitagliptin phosphate (Januvia) 100 mg PO DAILY 30 tabs 2RF Carri Kohli MD E11.29 - Type 2 diabetes mellitus with other diabetic kidney complication, E11.65 - Type 2 diabetes mellitus with hyperglycemia, R80.9 - Proteinuria, unspecified
== END 2024-10-15 10:08 | disposition home or self-care (01) ==
LOC: HO.HMCC 08:39
PROVIDERS: PCP Internal Medicine; Visit Provider Internal Medicine
DX: E11.29 Type 2 diabetes mellitus with other diabetic kidney complication (principal); R80.9 Proteinuria, unspecified; N39.46 Mixed incontinence; T38.3X5D Adverse effect of insulin and oral hypoglycemic [antidiabetic] drugs, subsequent encounter

== ENCOUNTER 2024-11-06 16:30 | Emergency (ER) | payer OTHER, SELFPAY ==
--- NOTE | ~2024-11-06 | US_ITS ---
CLINICAL HISTORY: postmenopausal vaginal bleeding US pelvis transvaginal Comparison: US - PELVIS ULTRASOUND [id number] - 05/24/19 08:32 EDT Findings: Transvaginal scanning performed. Diverted uterus is 9.3 cm length. Normal myometrium. Endometrium 5 mm thickness. Incidentally discovered fungating mass in the bladder measuring 1.7 x 1.3 x 2.0 cm. Right ovary 6.6 x 5.4 x 4.5 cm. Normal spectral Doppler of the right ovary. The left ovary is not identified. No free fluid. IMPRESSION: Normal endometrium. The left ovary was not identified. No evidence of torsion of the right ovary. Incidentally discovered fungating mass in the bladder This document has been electronically signed by: Lefty Canela MD on 11/06/2024 22:59:42
[2024-11-06 16:46] VITALS: BP 169/70; PULSE 78; RESP 16; TEMP 36.7; O2SAT 96; BMI 25.6
[2024-11-06 17:33] LABS: MANUAL DIFF FLAG NO
[2024-11-06 17:40] LABS: Appearance Urine Hazy; Color Urine Yellow; Glucose Urine UA >=1000 mg/dL (Negative); Leukocyte Esterase Urine Negative (Negative); Nitrite Urine Negative (Negative); Specific Gravity - Urine >= 1.030 (1.005-1.025); UMIC TRIGGER UACC YES; Urine Blood Large (3+) (Negative); Urine Ketones 15 mg/dL (Negative); Urine Protein Negative (Neg-Trace)
[2024-11-06 17:41] LABS: INTERNATIONAL NORM RATIO 0.9 (0.9-1.1); Prothrombin Time 10.7 SEC (10.9-12.4)
[2024-11-06 17:41] LABS: Bacteria Urine None Seen (None Seen); Hyaline Casts Urine 0-2 /LPF (0-2); RBC Urine >20 /HPF (0-2); Squamous Epithelial Cell Urine 0-2 /HPF (0-2); WBC Urine 0-5 /HPF (0-5)
[2024-11-06 17:55] LABS: Alanine Aminotransferase 23 U/L (0-31); Albumin Level 4.2 g/dL (3.5-5.0); Anion Gap 13 (12-20); Aspartate Amino Transferase 21 U/L (5-31); Bilirubin Direct 0.1 mg/dL (0.0-0.5); Bilirubin Total 0.4 mg/dL (0.0-1.0); Blood Urea Nitrogen 23 mg/dL (9-16); Calcium 10.1 mg/dL (8.4-10.2); Carbon Dioxide 29 mmol/L (22-29); Chloride 104 mmol/L (96-108); Creatinine Clr Calc Pharmacy 50.1; Estimated Glomerular Filt Rate > 60; Glucose Random 191 mg/dL (60-115); Potassium 3.8 mmol/L (3.3-5.1); Sodium 142 mmol/L (135-145); Total Protein 7.6 g/dL (6.5-8.0)
[2024-11-06 18:02] LABS: Basophils Percent Auto 0.4 % (0-2); Eosinophils Absolute Auto 0.1 X10*3/uL (0.0-0.4); Eosinophils Percent Auto 2.5 % (0-4); Hematocrit 43.3 % (37.0-47.0); Hemoglobin 14.5 g/dl (12.0-16.0); Imm Gran Abs Auto 0.02 X10*3/uL (0.00-0.03); Imm Gran Pct Auto 0.4 % (0.0-0.4); Lymphocytes Absolute Auto 1.5 X10*3/uL (1.2-4.9); Mean Corpuscular HGB Conc 33.5 g/dl (31.0-35.0); Mean Corpuscular Hemoglobin 31.1 pg (27.0-33.0); Mean Corpuscular Volume 92.9 fL (80.0-98.0); Mean Platelet Volume 11.6 fL (9.4-12.3); Monocytes Absolute Auto 0.5 X10*3/uL (0.1-1.2); Monocytes Percent Auto 8.8 % (2-11); Neutrophils Absolute Auto 3.5 x10*3/uL (2.0-8.3); Neutrophils Percent Auto 60.9 % (45-73); Platelet Count 215 X10*3/uL (160-400); Red Blood Count 4.66 X10*6/uL (4.20-5.50); White Blood Count 5.7 X10*3/uL (4.8-10.8)
[2024-11-06 18:11] LABS: Alkaline Phosphatase 78 U/L (39-117)
[2024-11-06 18:32] VITALS: BP 122/61; PULSE 71; RESP 16; TEMP 37.2; O2SAT 98
[2024-11-06 20:39] VITALS: BP 161/79; PULSE 73; RESP 14; TEMP 36.9; O2SAT 96
--- NOTE | 2024-11-06 20:51 | ED_ITS ---
HPI - General Adult General Chief complaint: Vaginal Bleeding Stated complaint: vaginal bleeding Time Seen by Provider: 11/06/24 20:02 Source: patient, RN notes reviewed and old records reviewed Mode of arrival: ambulatory Limitations: no limitations History of Present Illness ED Provider: Joya ORLANDO narrative: 69-year-old female with a past medical history significant for paroxysmal atrial fibrillation, hypertension, coronary artery disease, osteopenia, diabetes presents for evaluation of vaginal bleeding. Patient reports that she went through menopause about 12 years ago at age 57. She reports for the last 2 months she has had minimal spotting Today she had more heavy vaginal bleeding with clots that she had in his mostly after wiping She has not gone through any pads today She reports that she tried to mentioned to her doctor a couple of months ago but never her back from her doctor The patient states due to the bleeding she stopped taking her Eliquis without her ceo na consent The patient reports mild pelvic cramping Denies any severe pain Denies any fevers, chills. No other complaints or concerns at this time Related Data Home Medications ?Medication ?Instructions ?Recorded ?Confirmed lancets 28 gauge (FreeStyle #100 ea 08/03/20 10/15/24 Lancets) metoprolol succinate 200 mg 200 mg PO DAILY 06/26/21 10/15/24 tablet,extended release 24 hr nitroglycerin 0.4 mg sublingual 0 mg sublingual 09/19/22 10/15/24 tablet multivitamin 1 tab PO DAILY 10/07/23 10/15/24 apixaban 5 mg tablet (Eliquis) 5 mg PO BID 09/23/24 10/15/24 artificial drp ophthalmic (eye) 09/23/24 10/15/24 tears(sbuacfi-[id number]-edcvcbu) 0.1 %-0.3 %-0.2 % eye drops celecoxib 100 mg capsule (Celebrex) 100 mg PO DAILY PRN 10/15/24 10/15/24 Previous Rx's ?Medication ?Instructions ?Recorded blood sugar diagnostic (FreeStyle 1 strip miscellaneous BID for 06/18/22 Lite Strips) diabetes mellitus #100 strips rosuvastatin 5 mg tablet 5 mg PO DAILY #30 tabs 04/29/23 fluticasone propionate 110 1 puff inhalation Q12H #12 grams 12/11/23 mcg/actuation HFA aerosol inhaler lisinopril 5 mg tablet 5 mg PO DAILY #90 tabs 02/27/24 ezetimibe 10 mg tablet 10 mg PO DAILY #90 tabs 06/23/24 docusate sodium 100 mg capsule 100 mg PO DAILY #90 caps 07/13/24 albuterol sulfate 90 mcg/actuation 2 puff inhalation Q6H PRN 08/27/24 aerosol inhaler shortness of breath or wheezing #8.5 grams acetaminophen 500 mg tablet 500 mg PO Q6H PRN fever or pain 09/06/24 (Tylenol Extra Strength) #14 tabs lidocaine 5 % topical patch 1 patch topical DAILY PRN pain #30 09/06/24 (Lidoderm) ea cyclobenzaprine 5 mg tablet 5 mg PO BID PRN pain (scale score 09/10/24 7-10) #30 tabs dapagliflozin propanediol 10 mg 10 mg PO QAM #90 tabs 10/15/24 tablet (Farxiga) mirabegron 25 mg tablet,extended 25 mg PO DAILY #30 tabs 10/15/24 release 24 hr (Myrbetriq) repaglinide 2 mg tablet 2 mg PO TID #90 tabs 10/15/24 sitagliptin phosphate 100 mg 100 mg PO DAILY #30 tabs 10/15/24 tablet (Januvia) hydroxyzine HCl 10 mg tablet 10 mg PO .qd PRN hives #30 tabs 10/19/24 Allergies Allergy/AdvReac Type Severity Reaction Status Date / Time atorvastatin [From LIPITOR] AdvReac Intermediate STOMACH Verified 11/06/24 16:50 ACHE oxycodone [From OXYCONTIN] AdvReac Intermediate SENSORY Verified 11/06/24 16:50 HALLUCINATIONS sulfamethoxazole AdvReac Intermediate chills Verified 11/06/24 16:50 [From Bactrim] vitamin d AdvReac Intermediate Hallucinati Uncoded 10/15/24 09:34 ons Review of Systems 2 Constitutional: Constitutional: Denies chills and Denies fever(s) Gastrointestinal: Gastrointestinal: Reports abdominal pain, Denies nausea and Denies vomiting Genitourinary: Genitourinary: Reports pelvic pain and Reports vaginal discharge (bloody only) [facility] Past Medical History Medical History (Updated 11/06/24 @ 23:12 by Lefty Hinson) Metformin adverse reaction Urinary incontinence, mixed Oropharyngeal dysphagia COVID-19 vaccination refused Refused influenza vaccine Diabetes mellitus with hyperglycemia, without long-term current use of insulin Anxiety as acute reaction to gross stress Mild intermittent asthma in adult without complication OAB (overactive bladder) Diabetes mellitus with microalbuminuria, without long-term current use of insulin Osteoarthritis, knee History of depression Osteopenia after menopause Overweight Varicose veins of right lower extremity History of ST elevation myocardial infarction (STEMI) Coronary artery disease involving [place] coronary artery Hypertension Refused pneumococcal vaccination Dyslipidemia Surgical History History of section Hx of myomectomy S/P left rotator cuff repair History of heart artery stent Family History Family History Father No problems noted. Mother No problems noted. 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 Current occupational exposures/hazards: No Cognitive needs: No Hearing needs: No Vision needs: Yes Physical Exam ED Vital Signs: Vital Signs - 24 hr 11/06/24 16:46 11/06/24 18:32 11/06/24 20:39 Temperature 98.1 F 98.9 F 98.5 F Pulse Rate 78 71 73 Respiratory Rate 16 16 14 Blood Pressure 169/70 H 122/61 161/79 H Pulse Oximetry 96 98 96 Oxygen Delivery Method Room Air Room Air Room Air BMI result Body Mass Index 25.6 Const General: healthy appearing, comfortable, no acute distress, alert and awake Nutritional Appearance: well nourished Orientation/consciousness: patient oriented x3 HENMT Head: Yes normocephalic and Yes atraumatic Eyes Eyelids: Yes eyelids normal Conjunctivae: conjunctivae normal Sclerae: sclerae normal Corneas: corneas normal Pupils: Equal, round and reactive pupils present EOM: EOMs intact bilaterally Neck Neck: Yes full ROM Resp Effort & Inspection: normal respiratory effort, able to speak in complete sentences and not labored Cardio Rate: regular rate Rhythm: regular rhythm GI Inspection: No distended Palpation (GI): Soft to palpation, not firm, nontender, no guarding and not rigid Other: External female genitalia is unremarkable. Speculum was advanced easily into the vaginal canal. Vaginal wall is pale pink in color without lesions. Physiologic discharge and scant blood is noted in the vaginal vault. Cervix is identified, pink in color, without erythema or lesions. Samples are collected. Speculum was easily removed. Neuro General: patient oriented x3 Cranial nerves: Yes Equal, round and reactive pupils present and Yes Bilaterally intact EOM present Cognition (Neuro): normal cognition Extrem Other: Moving all extremities well without any obvious deformities Course Reevaluation(s) Reevaluation #1: Patient's workup largely unremarkable, there is no cervical or endometrial mass seen on exam or imaging. Patient will be encouraged to follow up with OBGYN outpatient Time: 23:12 Medical Decision Making Medical Decision Making [facility] Narrative: 61-year-old female presents for evaluation of postmenopausal vaginal bleeding. She has minimal discomfort. Her physical exam is reassuring. Labs are also reassuring as she is not anemic. Vitals are stable. Plan for ultrasound to evaluate for mass. The patient will likely require close OBGYN follow-up to evaluate for endometriosis versus cervical cancer Differential Diagnosis Differential Diagnoses: The differential diagnosis associated with the presentation includes Endometriosis Cervical cancer Uterine fibroids Postmenopausal bleeding Lab Data [facility] Lab Attestation statement: I reviewed the patient's lab results. No leukocytosis or anemia. Normal platelet count. No electrolyte abnormalities 11/06/24 17:23 11/06/24 17:23 Labs: Lab Results 11/06/24 11/06/24 Range/Units 17:23 17:28 WBC 5.7 (4.8-10.8) X10*3/uL RBC 4.66 (4.20-5.50) X10*6/uL Hgb 14.5 (12.0-16.0) g/dl Hct 43.3 (37.0-47.0) % MCV 92.9 (80.0-98.0) fL MCH 31.1 (27.0-33.0) pg MCHC 33.5 (31.0-35.0) g/dl RDW 12.0 (11.0-16.0) % Plt Count 215 (160-400) X10*3/uL MPV 11.6 (9.4-12.3) fL Immature Gran % (Auto) 0.4 (0.0-0.4) % Neut % (Auto) 60.9 (45-73) % Lymph % (Auto) 27.0 (20-40) % [place] % (Auto) 8.8 (2-11) % Eos % (Auto) 2.5 (0-4) % Baso % (Auto) 0.4 (0-2) % Lymph # (Auto) 1.5 (1.2-4.9) X10*3/uL [place] # (Auto) 0.5 (0.1-1.2) X10*3/uL Eos # (Auto) 0.1 (0.0-0.4) X10*3/uL Baso # (Auto) 0.0 (0.0-0.2) X10*3/uL Abs Immat Gran (auto) 0.02 (0.00-0.03) X10*3/uL Absolute Neuts (auto) 3.5 (2.0-8.3) x10*3/uL Absolute Nucleated RBC 0.000 (0.0-0.012) X10*3/uL Nucleated RBC % (auto) 0.0 (0.0-0.2) /100WBC PT 10.7 L (10.9-12.4) SEC INR 0.9 (0.9-1.1) Sodium 142 (135-145) mmol/L Potassium 3.8 (3.3-5.1) mmol/L Chloride 104 (96-108) mmol/L Carbon Dioxide 29 (22-29) mmol/L Anion Gap 13 (12-20) BUN 23 H (9-16) mg/dL Creatinine 0.83 (0.5-1.4) mg/dL Estim Creat Clear Calc 50.1 Estimated GFR > 60 Random Glucose 191 H (60-115) mg/dL Calcium 10.1 (8.4-10.2) mg/dL Magnesium 2.0 (1.6-2.6) mg/dL Total Bilirubin 0.4 (0.0-1.0) mg/dL Direct Bilirubin 0.1 (0.0-0.5) mg/dL AST 21 (5-31) U/L ALT 23 (0-31) U/L Alkaline Phosphatase 78 (39-117) U/L Total Protein 7.6 (6.5-8.0) g/dL Albumin 4.2 (3.5-5.0) g/dL Urine Color Yellow Urine Appearance Hazy Urine pH 5.0 (5.0-9.0) Ur Specific [place] >= 1.030 H (1.005-1.025) Urine Protein Negative (Neg-Trace) mg/dL Urine Glucose (UA) >=1000 H (Negative) mg/dL Urine Ketones 15 (Negative) mg/dL Urine Blood Large (3+) H (Negative) Urine Nitrite Negative (Negative) Ur Leukocyte Esterase Negative (Negative) Urine RBC >20 H (0-2) /HPF Urine WBC 0-5 (0-5) /HPF Ur Squamous Epith Cells 0-2 (0-2) /HPF Urine Bacteria None Seen (None Seen) Hyaline Casts 0-2 (0-2) /LPF Radiology Impression Discussion of test interpretation with radiology: I have reviewed the radiologist's reading. Radiologist Impression: Findings: Transvaginal scanning performed. Diverted uterus is 9.3 cm length. Normal myometrium. Endometrium 5 mm thickness. Incidentally discovered fungating mass in the bladder measuring 1.7 x 1.3 x 2.0 cm. Right ovary 6.6 x 5.4 x 4.5 cm. Normal spectral Doppler of the right ovary. The left ovary is not identified. No free fluid. IMPRESSION: Normal endometrium. The left ovary was not identified. No evidence of torsion of the right ovary. Incidentally discovered fungating mass in the bladder This document has been electronically signed by: Lefty Canela MD on 11/06/2024 22:59:42 Discharge Plan Discharge Clinical Impression: Abnormal vaginal bleeding in postmenopausal patient Patient Disposition: Home, Self-Care Instructions: Dysfunctional Uterine Bleeding (ED) Additional Instructions: Your workup in the ER today was reassuring. This includes your blood work, your ultrasound. It is very important that you follow-up with OBGYN. You may call Dr. Quintero at the number provided. You may also follow-up with outside facility such as [facility] by calling [phone] Prescriptions: No Action FreeStyle Lite Strips Strip 1 strip miscellaneous BID Qty: 100 0RF fluticasone propionate 110 mcg/actuation HFA aerosol inhaler 1 puff inhalation Q12H Qty: 12 1RF Rx Instructions: rinse and gargle mouth after use lisinopril 5 mg tablet 5 mg PO DAILY Qty: 90 0RF ezetimibe 10 mg tablet 10 mg PO DAILY Qty: 90 1RF docusate sodium 100 mg capsule 100 mg PO DAILY Qty: 90 1RF hydroxyzine HCl 10 mg tablet 10 mg PO .qd PRN (Reason: hives) Qty: 30 1RF acetaminophen [Tylenol Extra Strength] 500 mg tablet 500 mg PO Q6H PRN (Reason: fever or pain) Qty: 14 0RF lidocaine [Lidoderm] 5 % adhesive patch,medicated 1 patch topical DAILY MDD remove after 12 hours PRN (Reason: pain) Qty: 30 0RF Rx Instructions: leave on most painful area for up to 12 hrs albuterol sulfate 90 mcg/actuation HFA aerosol inhaler 2 puff inhalation Q6H PRN (Reason: shortness of breath or wheezing) Qty: 8.5 0RF nitroglycerin 0.4 mg tablet, sublingual 0 mg sublingual (DME) lancets [FreeStyle Lancets] 28 gauge misc See Rx Instructions .ROUTE .MEDSUPPLY Qty: 100 Rx Instructions: As directed rosuvastatin 5 mg tablet 5 mg PO DAILY Qty: 30 5RF metoprolol succinate 200 mg tablet extended release 24 hr 200 mg PO DAILY multivitamin Tablet 1 tab PO DAILY cyclobenzaprine 5 mg tablet 5 mg PO BID PRN (Reason: pain (scale score 7-10)) Qty: 30 0RF celecoxib [Celebrex] 100 mg capsule 100 mg PO DAILY PRN repaglinide 2 mg tablet 2 mg PO TID Qty: 90 1RF Rx Instructions: administer within 30 minutes of a meal or snack mirabegron [Myrbetriq] 25 mg tablet extended release 24 hr 25 mg PO DAILY Qty: 30 1RF Farxiga 10 mg tablet 10 mg PO QAM Qty: 90 1RF Januvia 100 mg tablet 100 mg PO DAILY Qty: 30 2RF artificial tear(pfqqg-vjw-lvn) 0.1-0.3-0.2 % drops ophthalmic (eye) Eliquis 5 mg tablet 5 mg PO BID Referrals: Erick Quintero MD [Physician] - (postmenopausal bleeding) Print Language: Ukrainian
--- NOTE | 2024-11-06 21:06 | PC.NURSE ---
pt seen by provider, pelvic exam done, swabs sent to lab
--- NOTE | 2024-11-06 22:03 | PC.NURSE ---
pt back from ct scan
[2024-11-06 23:20] VITALS: BP 162/83; PULSE 79; RESP 16; TEMP 36.8; O2SAT 95
--- NOTE | 2024-11-06 23:28 | PC.NURSE ---
Reviewed discharge instructions with pt. pt verbalized understanding, no sign of distress. pt had a steady gait upon discharge.
[2024-11-06 23:29] VITALS: BP 162/83; PULSE 79; RESP 16; TEMP 36.8; O2SAT 95
[2024-11-07 02:51] LABS: CT PCR NOT DETECTED (Not Detect.); NG PCR NOT DETECTED (Not Detect.)
[2024-11-07 09:24] LABS: Bacterial Vaginosis PCR NEGATIVE (Negative); Candida Group PCR NOT DETECTED (Not Detect); Candida glab krusei PCR NOT DETECTED (Not Detect); Trichomonas vaginalis PCR NOT DETECTED (Not Detect)
== END 2024-11-06 23:31 | disposition home or self-care (01) ==
PROVIDERS: Physician Assistant; Emergency Provider Emergency Medicine Emergency Medical Services; PCP Internal Medicine
DX: N95.0 Postmenopausal bleeding (principal); I10 Essential (primary) hypertension; E78.5 Hyperlipidemia, unspecified; I48.0 Paroxysmal atrial fibrillation; Z79.899 Other long term (current) drug therapy
CPT/HCPCS: 36415; 76830; 76856; 80053; 81001; 81515; 82248; 83735; 85025; 85610; 87491; 87591; 99284

== ENCOUNTER → 2024-11-06 20:06 | Outpatient (BNV) | payer OTHER, SELFPAY | PROVIDERS: Emergency Provider Emergency Medicine Emergency Medical Services; PCP Internal Medicine; Visit Provider Student in an Organized Health Care Education/Training Program | DX: N95.0 Postmenopausal bleeding (principal) | CPT/HCPCS: 76830; 76856 ==

== ENCOUNTER 2024-11-16 06:07 | Outpatient (REF) | payer OTHER, SELFPAY | END 2024-11-16 06:08 | disposition home or self-care (01) | LOC: CF 06:07 | PROVIDERS: Visit Provider Anesthesiology | DX: Z13.89 Encounter for screening for other disorder (principal) ==

== ENCOUNTER 2024-11-29 12:29 | Outpatient (REF) | payer OTHER, SELFPAY ==
--- OUTSIDE RECORDS SUMMARY | 2024-11-29 19:09 | XMS_ITS | Encounter Summary ---
Author Organization [employer] [facility] Address [address] [place] [address] Care Team Providers Care [place] Guide Name Role Phone Unavailable Primary Care Provider Unavailabl e Reason for Visit * Reason Comments [place] Prep Encounter Details Date Type Department Care Team (Late st Contact Info) Description 11/17/2024 1:00 PM EST Office Visit [facility] [address] [place] [address] Neha Felder DMD [address] [place] [address] Social History Tobacco Use Types Packs/Day Years [...] y.o. female. Time Out: Date: 11/17/2024 Location: PSYCHIATRIC Tooth: #8 and #9 Procedure: [place] Verified the above with patient, workers compensation claims assistant, and provider. Confirmed via patient's chart, intraorally and by radiographs. Hydrochloric Area Supervisor: not applicable BruxZir crown preparations on #8 [...] any pain. - Provisional crowns removed. - [place] prep completed on #8 & #9 - [...] adjusted as needed using articulating paper - [place] seated with Temp-Arguelles cement - Margin adaptation confirmed by clinical examination. - Proximal contact confirmed and cleaned with floss - Shade A2 selected Patient given post-op instructions. Patient states she broke filling on tooth #14. Latter-Day done at PSYCHIATRIC Jun 2024. Latter-Day to be re-done at future appointment. Patient states she is not wearing lower RPD as it is sore on the LR region. Requested patient to bring RPD to next appointment for adjustments to protect the remaining dentition. All patient questions answered. Patient comfortable upon dismissal. NV: Restorative // Seating of #8 and #9 [place] Provider: Dr. Neha Felder DMD Stubber: Brandie Zamorano Supervising Dentist: Dr. Jossy Kee [...] [facility] [address] [place] [address] Neha Felder DMD [address] [place] [address] 12/21/2024 9:00 AM EST Telemedicine [facility] [address] [place] [address] MD [address] [place] [address] 02/14/2025 10:00 AM EDT Office Visit [facility] [address] [place] [address] Domingo Spence Scheduled Orders Name Type Priority [...]
--- OUTSIDE RECORDS SUMMARY | 2024-11-29 19:09 | XMS_ITS | Encounter Summary ---
Author Organization [employer] Address [address] [place] [address] Care Team Providers Care [place] Floor Layer Name Role Phone Unavailable Primary Care Provider Unavailabl e Reason for Visit * Reason Onset Date Comments Appointment 05/20/2023 Encounter Details Date Type Department Care Team (Late st Contact Info) Description 05/20/2023 Telephone [facility] [address] [place] [address] Thompson Cobb, DDS [address] [place] [address] Appointment Social History Tobacco Use Types Packs/Day [...] 11:00 AM EST Office Visit [facility] ADULT D[facility] [address] [place] [address] Neha Felder DMD [address] [place] [address] 12/21/2024 9:00 AM EST Telemedicine [facility] [address] [place] [address] Hernan Urbina MD [address] [place] [address] 02/14/2025 10:00 AM EDT Office Visit [facility] ADULT D[facility] [address] [place] [address] Domingo Spence documented as of this encounter Visit Diagnoses Not on filedocumented in this encounter
--- OUTSIDE RECORDS SUMMARY | 2024-11-29 19:09 | XMS_ITS | Encounter Summary ---
Author Organization [employer] [facility] Address [address] [place] [address] Care Team Providers Care Box Toe Maker Name Role Phone Unavailable Primary Care Provider [...] Description 12/16/2024 11:00 AM EST Office Visit [facility] ADULT DENTAL [address] [place] [address] Neha Felder DMD [address] [place] [address] 12/21/2024 9:00 AM EST Telemedicine [facility] [address] [place] [address] Hernan Urbina MD [address] [place] [address] 02/14/2025 10:00 AM EDT Office Visit [facility] ADULT DENTAL [address] [place] [address] Domingo Spence documented as of this encounter Visit Diagnoses Not on filedocumented in this encounter
--- OUTSIDE RECORDS SUMMARY | 2024-11-29 19:09 | XMS_ITS | Encounter Summary ---
Author Organization [employer] [facility] Address [address] [place] [address] [facility] [place] [address] Care Team Providers Care Housing Officer Name Role Phone Unavailable Primary Care Provider Unavailabl e Encounter Details Date Type Department Care Team (Latest Contact Info) Description 04/15/2022 Abstract [facility] CONVERSIONS Dental, Provider, DDS Social History Tobacco [...] Description 12/16/2024 11:00 AM EST Office Visit [facility] ADULT DENTAL [address] [place] [address] Neha Felder DMD [address] [place] [address] 12/21/2024 9:00 AM EST Telemedicine [facility] MED & PEDS [address] [place] [address] Hernan Urbina MD 505 [place] [address] 02/14/2025 10:00 AM EDT Office Visit [facility] ADULT DENTAL [address] [place] [address] Domingo Spence documented as of this encounter Visit Diagnoses Not on filedocumented in this encounter
--- OUTSIDE RECORDS SUMMARY | 2024-11-29 19:09 | XMS_ITS | Encounter Summary ---
Author Organization [employer] [facility] Address [address] [place] [address] Care Team Providers Care Wind Field Service Manager Name Role Phone Unavailable Primary Care Provider Unavailabl e Reason for Visit * Reason Comments Med Refill Encounter Details Date Type Department Care Team ([facility] Contact Info) Description 09/12/2023 Refill [facility] MED & PEDS [address] [place] [address] Christopher Spence MD [address] [place] [address] Social History Tobacco Use Types Packs/Day Years [...] Upcoming Encounters Date Type Department Care Team ([facility] Contact Info) Description 12/16/2024 11:00 AM EST Office Visit [facility] ADULT DENTAL [address] [place] [address] Neha Felder DMD 505 [place] [address] 12/21/2024 9:00 AM EST Telemedicine [facility] MED & PEDS [address] [place] [address] Hernan Urbina MD [address] [place], [place] [phone] 02/14/2025 10:00 AM EDT Office Visit [facility] ADULT DENTAL [address] [place] [address] Domingo Spence documented as of this encounter Visit Diagnoses Not on filedocumented in this encounter
--- OUTSIDE RECORDS SUMMARY | 2024-11-29 19:09 | XMS_ITS | Encounter Summary ---
Author Organization [employer] [facility] Address [address] [facility] 7 [place] [address] Care Team Providers Care Timber Rider Name Role Phone Unavailable Primary Care Provider Unavailabl e Encounter Details Date Type Department Care Team (Late Contact Info) Description 08/10/2024 Telephone [facility] ADULT DENTAL [address] [place] [address] Neha Felder DMD [address] [place], [place] [phone] Social History Tobacco Use Types Packs/Day Years [...] Description 12/16/2024 11:00 AM EST Office Visit [facility] ADULT DENTAL [address] [place] [address] Neha Felder DMD [address] [place], [place] [phone] 12/21/2024 9:00 AM EST Telemedicine [facility] MED & PEDS [address] [place] [address] Hernan Urbina MD 505 [place] [address] 02/14/2025 10:00 AM EDT Office Visit [facility] ADULT DENTAL [address] [place] [address] Domingo Spence documented as of this encounter Visit Diagnoses Not on filedocumented in this encounter
--- OUTSIDE RECORDS SUMMARY | 2024-11-29 19:09 | XMS_ITS | Encounter Summary ---
Author Organization [employer] [facility] Address [address] [place] [address] 7 [place] [address] Care Team Providers Care Sdet Name Role Phone Unavailable Primary Care Provider Unavailabl e Encounter Details Date Type Department Care Team (Late Contact Info) Description 11/01/[address] [facility] ADULT DENTAL [address] [place] [address] Thompson Cobb DDS [address] [place] [address] Social History Tobacco Use Types Packs/Day Years [...] Description 12/16/2024 11:00 AM EST Office Visit [facility] ADULT DENTAL [address] [place] [address] Neha Felder DMD 505 [place] [address] 12/21/2024 9:00 AM EST Telemedicine [facility] MED & PEDS [address] [place] [address] Hernan Urbina MD [address] [place] [address] 02/14/2025 10:00 AM EDT Office Visit [facility] ADULT DENTAL [address] [place] [address] Domingo Spence documented as of this encounter Visit Diagnoses Not on filedocumented in this encounter
--- OUTSIDE RECORDS SUMMARY | 2024-11-29 19:10 | XMS_ITS | Encounter Summary ---
Author Organization [employer] [facility] Address [address] [facility] 7t [place] [address] Care Team Providers Care Hand Edge Bander Name Role Phone Unavailable Primary Care Provider Unavailabl e Reason for Visit * Reason Onset Date Comments Appointment 11/17/2024 Encounter Details Date Type Department Care Team (Late st Contact Info) Description 11/17/2024 Telephone [facility] MED & PEDS [address] [place] [address] Hernan Urbina MD 505 [place] [address] Appointment Social History Tobacco Use Types Packs/Day [...] Description 12/16/2024 11:00 AM EST Office Visit [facility] ADULT DENTAL [address] [place] [address] Neha Felder DMD 505 [place] [address] 12/21/2024 9:00 AM EST Telemedicine [facility] MED & PEDS [address] [place] [address] Hernan Urbina MD 505 [place] [address] 02/14/2025 10:00 AM EDT Office Visit [facility] ADULT DENTAL [address] [place] [address] Domingo Spence documented as of this encounter Visit Diagnoses Not on filedocumented in this encounter
--- OUTSIDE RECORDS SUMMARY | 2024-11-29 19:10 | XMS_ITS | Encounter Summary ---
Author Organization [email or web address] [facility] Address [address] [place] [address] [facility] [place] [address] Care Team Providers Care Circuit Designer Name Role Phone Unavailable Primary Care Provider Unavailabl e Encounter Details Date Type Department Care Team (Late Contact Info) Description 11/16/2024 Orders Only [facility] ADULT DENTAL [address] [place] [address] Neha Felder DMD [address] [place] [address] Social History Tobacco Use Types Packs/Day Years [...] [facility] [address] [place] [address] Neha Felder DMD [address] [place] [address] 12/21/2024 9:00 AM EST Telemedicine [facility] MED & PEDS [address] [place] [address] Hernan Urbina MD 505 [place] [address] 02/14/2025 10:00 AM EDT Office Visit [facility] ADULT DENTAL [address] [place] [address] Domingo Spence documented as of this encounter Visit Diagnoses Not on filedocumented in this encounter
--- OUTSIDE RECORDS SUMMARY | 2024-11-29 19:10 | XMS_ITS | Clinical Summary ---
Author Organization [employer] Address [address] 7t [place] [address] Care Team Providers Care Scrum Master Name Role Phone Unavailable Primary Care Provider [...] 11/17/2024 1:00 PM EST Office Visit [facility] ADULT DENTAL [address] [place] [address] Neha Felder, DMD 11/17/2024 Telephone [facility] MED & PEDS [address] [place] [address] Hernan Urbina MD Appointment 11/17/2024 Travel 11/16/2024 Orders Only [facility] ADULT DENTAL [address] [place] [address] Neha Felder, DMD 11/15/2024 Telephone [facility] ADULT DENTAL [address] [place] [address] Neha Felder, GLORIA 11/10/2024 Travel 11/01/2024 Telephone [facility] MEDICINE [address] [place] [address] Marcos Friedman MD New patient appt. 11/01/2024 Telephone [facility] MEDICINE [address] [place] [address] Marcos Friedman MD Appointment Request 10/12/2024 9:00 AM EST Office Visit [facility] ADULT DENTAL [address] [place] [address] Neha Felder, DMD 10/05/2024 Travel from Last [...] 11:00 AM EST Office Visit [facility] ADULT DENTAL [address] [place] [address] Neha Felder DMD [address] [place] [address] 12/21/2024 9:00 AM EST Telemedicine [facility] MED & PEDS [address] [place] [address] Hernan Urbina MD 505 [place] [address] 02/14/2025 10:00 AM EDT Office Visit [facility] ADULT DENTAL [address] [place] [address] Domingo Spence Health Maintenance Due Date Last [...] to Health Maintenance Insurance MARIA E ESPOSITO [id number] [facility]
--- OUTSIDE RECORDS SUMMARY | 2024-11-29 19:10 | XMS_ITS | Encounter Summary ---
Author Organization [employer] [facility] Address [address] [place] [address] [facility] [place] [address] Care Team Providers Care Gastroenterologist Name Role Phone Unavailable Primary Care Provider Unavailabl e Encounter Details Date Type Department Care Team (Latest Contact Info) Description 02/02/2021 Abstract [facility] CONVERSIONS Dental, Provider, DDS Social [...] Description 12/16/2024 11:00 AM EST Office Visit [facility] ADULT DENTAL [address] [place] [address] Neha Felder DMD [address] [place] [address] 12/21/2024 9:00 AM EST Telemedicine [facility] MED & PEDS [address] [place] [address] Hernan Urbina MD 505 [place] [address] 02/14/2025 10:00 AM EDT Office Visit [facility] ADULT DENTAL [address] [place] [address] Domingo Spence documented as of this encounter Visit Diagnoses Not on filedocumented in this encounter
--- OUTSIDE RECORDS SUMMARY | 2024-11-29 19:10 | XMS_ITS | Encounter Summary ---
Author Organization [employer] [facility] Address [address] 7t [place] [address] Care Team Providers Care Refrigerated National Truck Driver Name Role Phone Unavailable Primary Care Provider Unavailabl e Reason for Visit * Reason Onset Date Comments New patient appt. 11/01/2024 Encounter Details Date Type Department Care Team (Late Contact Info) Description 11/01/2024 Telephone [facility] MEDICINE [address] [place] [address] Marcos Friedman MD [address] [place], [place] [phone] New patient appt. Social History Tobacco Use [...] EST Outgoing call to pt to book CALL CENTER REPRESENTATIVE appt. No answer. Left Message. documented in this encounter Plan of Treatment Upcoming Encounters Date Type Department Care Team (Late Contact Info) Description 12/16/2024 11:00 AM EST Office Visit [facility] ADULT DENTAL [address] [place] [address] Neha Felder DMD 505 [place] [address] 12/21/2024 9:00 AM EST Telemedicine [facility] MED & PEDS [address] [place] [address] Hernan Urbina MD 505 [place] [address] 02/14/2025 10:00 AM EDT Office Visit [facility] ADULT DENTAL [address] [place] [address] Domingo Spence documented as of this encounter Visit Diagnoses Not on filedocumented in this encounter
--- OUTSIDE RECORDS SUMMARY | 2024-11-29 19:10 | XMS_ITS | Encounter Summary ---
Author Organization [employer] [facility] Address [address] [facility] 7 [place] [address] Care Team Providers Care Shellacker Name Role Phone Unavailable Primary Care Provider Unavailabl e Encounter Details Date Type Department Care Team (Late st Contact Info) Description 11/15/2024 Telephone [facility]ULT [facility] [address] [facility] [place], [place] [phone] Neha Felder DMD 505 [place], [place] [phone] Social History Tobacco Use Types Packs/Day Years [...] Description 12/16/2024 11:00 AM EST Office Visit [facility] ADULT DENTAL [address] [place] [address] Neha Felder DMD 505 [place], [place] [phone] 12/21/2024 9:00 AM EST Telemedicine [facility] MED & PEDS [address] [place] [address] Hernan Urbina MD 505 [place] [address] 02/14/2025 10:00 AM EDT Office Visit [facility] ADULT DENTAL [address] [place] [address] Domingo Spence documented as of this encounter Visit Diagnoses Not on filedocumented in this encounter
--- OUTSIDE RECORDS SUMMARY | 2024-11-29 19:10 | XMS_ITS | Encounter Summary ---
Author Organization [employer] [facility] Address [address] [address] 7t [place] [address] Care Team Providers Care Polyethylene Combiner Name Role Phone Unavailable Primary Care Provider Unavailabl e Reason for Visit * Reason Onset Date Comments Appointment Request 11/01/2024 Encounter Details Date Type Department Care Team (Late st Contact Info) Description 11/01/2024 Telephone [facility] MEDICINE [address] [place] [address] Marcos Friedman MD [address] [place], [place] [phone] Appointment Request Social History Tobacco Use Types [...] 11/01/2024 11:49 AM EST Patient added to [facility] wait list as of 11/01/24. * Telephone Encounter - Olya Alyson - 11/01/2024 11:21 AM EST TC from caller requesting NEW PATIENT visit . Medical condition: heart condition, diabetes and high cholesterol. Insurance name : [employer] Location : [facility] would like Demographic information updated documented in this encounter Plan of Treatment Upcoming Encounters Date Type Department Care Team (Late st Contact Info) Description 12/16/2024 11:00 AM EST Office Visit [facility] ADULT DENTAL [address] [place] [address] Neha Felder DMD 505 [place] [address] 12/21/2024 9:00 AM EST Telemedicine [facility] MED & PEDS [address] [place] [address] Hernan Urbina MD [address] [place] [address] 02/14/2025 10:00 AM EDT Office Visit [facility] ADULT DENTAL [address] [place] [address] Domingo Spence documented as of this encounter Visit Diagnoses Not on filedocumented in this encounter
--- OUTSIDE RECORDS SUMMARY | 2024-11-29 19:10 | XMS_ITS | Encounter Summary ---
Author Organization [facility] Address [address] [place] [address] Care Team Providers Care Tack Picker Name Role Phone Unavailable Primary Care Provider [...] Description 12/16/2024 11:00 AM EST Office Visit [facility] ADULT DENTAL [address] [place] [address] Neha Felder DMD 505 [place] [address] 12/21/2024 9:00 AM EST Telemedicine [facility] MED & PEDS [address] [place] [address] Hernan Urbina MD 505 [place] [address] 02/14/2025 10:00 AM EDT Office Visit [facility] ADULT DENTAL 505 [place] [address] Domingo Spence documented as of this encounter Visit Diagnoses Not on filedocumented in this encounter
--- OUTSIDE RECORDS SUMMARY | 2024-11-29 19:10 | XMS_ITS | Encounter Summary ---
Author Organization [employer] [facility] Address [address] [place] [address] 7 [place] [address] Care Team Providers Care Grounds Person Name Role Phone Unavailable Primary Care Provider Unavailabl e Encounter Details Date Type Department Care Team (Latest Contact Info) Description 04/14/2019 Abstract [facility] CONVERSIONS Dental, Provider, DDS Social History Tobacco [...] Description 12/16/2024 11:00 AM EST Office Visit [facility] ADULT DENTAL [address] [place] [address] Neha Felder DMD 505 [place] [address] 12/21/2024 9:00 AM EST Telemedicine [facility] MED & PEDS [address] [place] [address] Hernan Urbina MD 505 [place] [address] 02/14/2025 10:00 AM EDT Office Visit [facility] ADULT DENTAL [address] [place] [address] Domingo Spence documented as of this encounter Visit Diagnoses Not on filedocumented in this encounter
== END 2024-11-29 12:30 | disposition home or self-care (01) ==
LOC: HO.LNP 12:29
PROVIDERS: PCP Internal Medicine; Visit Provider Obstetrics & Gynecology
DX: N95.0 Postmenopausal bleeding (principal); R93.41 Abnormal radiologic findings on diagnostic imaging of renal pelvis, ureter, or bladder
CPT/HCPCS: 58100; 88305; 99202

== ENCOUNTER 2024-11-29 12:29 | Outpatient (AMB) | payer OTHER, SELFPAY ==
--- NOTE | 2024-11-29 12:41 | MHC.OFFVIS ---
Vital Signs 11/29/24 12:49 Height 4 ft 11 in Weight 129 lb BMI 26.1 BP 140/72 H Intake Visit Reasons: PMB Roll Scale Man: Roll Scale Man Present (Rupa) Accompanied by: Self / Same As Patient Allergies atorvastatin [From LIPITOR] Adverse Reaction (Intermediate, Verified 11/29/24 12:47) STOMACH ACHE oxycodone [From OXYCONTIN] Adverse Reaction (Intermediate, Verified 11/29/24 12:47) SENSORY HALLUCINATIONS sulfamethoxazole [From Bactrim] Adverse Reaction (Intermediate, Verified 11/29/24 12:47) chills vitamin d Adverse Reaction (Intermediate, Uncoded 10/15/24 09:34) Hallucinations HPI Comments Details: Presenting complaining of multiple episodes of vaginal bleeding Last co testing done in 07/24 was negative 11/06/2024 pelvic ultrasound showed the following: Transvaginal scanning performed. Diverted uterus is 9.3 cm length. Normal myometrium. Endometrium 5 mm thickness. Incidentally discovered fungating mass in the bladder measuring 1.7 x 1.3 x 2.0 cm. Right ovary 6.6 x 5.4 x 4.5 cm. Normal spectral Doppler of the right ovary. The left ovary is not identified. No free fluid. [facility] Medical History Metformin adverse reaction Urinary incontinence, mixed Oropharyngeal dysphagia COVID-19 vaccination refused Refused influenza vaccine Diabetes mellitus with hyperglycemia, without long-term current use of insulin Anxiety as acute reaction to gross stress Mild intermittent asthma in adult without complication OAB (overactive bladder) Diabetes mellitus with microalbuminuria, without long-term current use of insulin Osteoarthritis, knee History of depression Osteopenia after menopause Overweight Varicose veins of right lower extremity History of ST elevation myocardial infarction (STEMI) Coronary artery disease involving habematolel coronary artery Hypertension Refused pneumococcal vaccination Dyslipidemia Surgical History History of section Hx of myomectomy S/P left rotator cuff repair History of heart artery stent Family History Father No problems noted. Mother No problems noted. 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 Current occupational exposures/hazards: No Cognitive needs: No Hearing needs: No Vision needs: Yes Female Reproductive History Menstrual Age of Menarche: 12 Total pregnancies: 2 Full term: 2 Date of Mammogram: 09/17/22 (bi rad 2) Review of Systems Const All systems reviewed & are unremarkable except as noted in HPI and below Physical Exam Vital Signs: Last Vital Signs BP 140/72 H 11/29/24 12:49 BMI result Body Mass Index 26.1 General: Yes no CVA tenderness External Female Exam: normal external appearance and normal appearance of the urethra Speculum Exam - Vagina: normal appearance of the vagina, normal palpation, no lesions and no masses Speculum Exam - Cervix: normal appearance of the cervix, normal palpation, no lesions, no masses and nontender Bimanual exam- vagina & uterus: normal bimanual exam, normal palpation, uterine size normal, normal palpation, uterine shape normal, No Cervical tenderness present and non-tender Bimanual Exam- Adnexa, other: normal adnexae Back/Spine/Pelvis Back: no CVA tenderness Office Procedures Endometrial Biopsy Details: The patient was counseled regarding the indication and benefits of endometrial sampling to rule out endometrial pathology including not limited to endometrial hyperplasia or endometrial cancer and others; The alternatives (Either do nothing vs. hysteroscopy D&C) & the risks were discussed with the patient including but not limited: pain, uterine perforation, bleeding, infection, possible injury to bladder, bowel, ureter, possible need for blood transfusion with all its possible risks. The patient verbalized understanding all questions answered and signed consent. The patient was placed into the dorsal lithotomy position; a speculum was inserted in the vagina. Using aseptic technique for the procedure, the cervix was cleansed with Betadine. The anterior lip of the cervix was grasped with a single tooth tenaculum. The uterus was sounded to 9 cm with a 4 mm Pipelle was used. Tissues samples were obtained and placed in formalin, in a patient labeled container and sent to the pathology department. At the end of the procedure, there was minimal bleeding noted The patient tolerated the procedure well and was discharged in good condition with the following instructions: Nothing in the vagina until the bleeding stops. No sex until the bleeding stops, to call if any of the following occurs: fever (>100.4), flu-like symptoms, abdominal pain, heavy bleeding, four smelling vaginal discharge. The patient was instructed to schedule a Follow up appointment in 2 weeks to discuss pathology results of the biopsy and treatment options. This note was generated with a voice recognition program. Some errors may have been overlooked during the review of this note. Sometimes these errors may affect the content or meaning of a given sentence. 24521-Zmclhruuixu Biopsy Assessment & Plan Assessment & Plan (1) Postmenopausal bleeding: Code(s): N95.0 - Postmenopausal bleeding Category: Medical Plan: Discussed with the patient the pelvic ultrasound findings, the endometrial stripe thickenss measured by ultrasound was more than 4mm. The negative predictive value, positive predictive value, Sensitivity, specificity of using ultrasound measurement of endometrial stripe to detecting endometrial pathology including hyperplasia , polyp or cancer were discussed with the patient. Recommended to the patient that the next step is an endometrial sampling via hysteroscopy D&C possible polypectomy versus endometrial biopsy to r/o endometrial pathology including hyperplasia or cancer. All the pros and cons risks and benefits of each approach were discussed with the patient, endometrial biopsy being less invasive, office procedure with less sensitivity and inability diagnose a polyp and removal versus hysteroscopy done under anesthesia more invasive more sensitive to endometrial cancer and possibility of diagnosing and endometrial polyp with the possibility of polypectomy. All questions were answered pt verbalized understanding and decided to proceed with endometrial biopsy. EMB done, see procedure note (2) Abnormal ultrasound of bladder: Code(s): R93.41 - Abnormal radiologic findings on diagnostic imaging of renal pelvis, ureter, or bladder Category: Medical Plan: The patient was refer to urology by PCP and has an appointment scheduled soon. Orders: Orders AMB Endometrial Biopsy Today N95.0 - Postmenopausal bleeding Coding Level of Care Code New Pt Level 3 (94219) Procedure Only Diagnoses Postmenopausal bleeding N95.0 Abnormal ultrasound of bladder R93.41 CPT Codes Endometrial Biopsy - CPT: 10160-Nngdabjrtfd Biopsy ([id number])
[2024-11-29 12:49] VITALS: BP 140/72; BMI 26.1
--- OUTSIDE RECORDS SUMMARY | 2024-11-29 17:12 | XMS_ITS ---
Author Organization [facility] Address [address] [place] [address] Care Team Providers Care Convenience Store Manager Name Role Phone Seun NAYAK, Carri Ramírez Primary Care Provider Un available Kathrine Cheema Unavailable [phone] REASON FOR VISIT NS 09-07-24 Encounters Encounter Location Date Provider Diagnosis [facility] [address] [place] [address] 09/07/2024 Kathrine Cheema Plan Of Treatment Next Appt Details Provider Name:Kathrine armando, 01/25/2025 02:30:00 PM, [address] [place], [address], Progress Notes * Judie TOLLIVERB:[birth year] (69 yo F)Acc No.[id number]:09/07/2024 Patient:?Meena TOLLIVER :1955???Age:69 Y???Sex:Female Address:[address] [place] [address], [address], [place], [address] * true * Date:? Generated for Osmar brito/Raheel/eTransmitting on:?11/29/2024 05:12 PM EST
--- OUTSIDE RECORDS SUMMARY | 2024-11-29 17:12 | XMS_ITS | Encounter Summary ---
Author Organization [employer] [facility] Address [address] [facility] 7 [place] [address] Care Team Providers Care Pick Up Attendant Name Role Phone Unavailable Primary Care Provider Unavailabl e Encounter Details Date Type Department Care Team (Late Contact Info) Description 08/10/[address] [facility] ADULT DENTAL [address] [place] [address] Neha Felder DMD [address] [place], [place] [id number] Social History Tobacco Use Types Packs/Day Years Used Date Smoking Tobacco: Never Passive Smoke Exposure: Never Smokeless Tobacco: Never Alcohol Use Standard Drinks/Week Comments Never 0 (1 standard drink = 0.6 oz pur e alcohol) Comments Unknown Sex and Gender Information Value Date Recorded Sex Assigned at Female 09/02/2022 10:20 AM EDT Legal Sex Female 10:20 AM EDT Gender Identity Female 09/02/2022 10:20 AM EDT Sexual Orientation Straight 09/02/2022 10 :20 AM EDT documented as of this encounter Miscellaneous Notes * Telephone Encounter - Whitney Pressley - 08/10/2024 9:56 AM EDT Patient called she has a cleaning apt for Friday can we send her anti otics to her pharmacy thank you doctor . documented in this encounter Plan of Treatment Upcoming Encounters Date Type Department Care Team (Late Contact Info) Description 12/16/2024 11:00 AM EST Office Visit [facility] ADULT DENTAL [address] [place] [address] Neha Felder DMD [address] [place], [place] [id number] 12/21/2024 9:00 AM EST Telemedicine [facility] MED & PEDS [address] [place] [address] Hernan Urbina MD [address] [place] [address] 02/14/2025 10:00 AM EDT Office Visit [facility] ADULT DENTAL [address] [place] [address] Domingo Spence documented as of this encounter Visit Diagnoses Not on filedocumented in this encounter
--- OUTSIDE RECORDS SUMMARY | 2024-11-29 17:13 | XMS_ITS | Encounter Summary ---
Author Organization [employer] [facility] Address [address] [place] [address] 7 [place] [address] Care Team Providers Care Tie Tape Machine Operator Name Role Phone Unavailable Primary Care Provider Unavailabl e Encounter Details Date Type Department Care Team (Late Contact Info) Description 11/01/2022 Abstract [facility] ADULT DENTAL [address] [place] [address] Thompson Cobb DDS [address] [place] [address] Social History Tobacco Use Types Packs/Day Years Used Date Smoking Tobacco: Never Assessed Comments Unknown Sex and Gender Information Value Date Recorded Sex Assigned at Female 09/02/2022 10:20 AM EDT Legal Sex Female 10:20 AM EDT Gender Identity Female 09/02/2022 10:20 AM EDT Sexual Orientation Straight 09/02/2022 10 :20 AM EDT documented as of this encounter Plan of Treatment Upcoming Encounters Date Type Department Care Team (Late Contact Info) Description 12/16/2024 11:00 AM EST Office Visit [facility] ADULT DENTAL [address] [place] [address] Neha Felder DMD [address] [place] [address] 12/21/2024 9:00 AM EST Telemedicine [facility] MED & PED[facility] [address] [place] [address] Hernan Urbina MD [address] [place] [address] 02/14/2025 10:00 AM EDT Office Visit [facility] ADULT DENT[facility] [address] [place] [address] Domingo Spence documented as of this encounter Visit Diagnoses Not on filedocumented in this encounter
--- OUTSIDE RECORDS SUMMARY | 2024-11-29 17:13 | XMS_ITS | Encounter Summary ---
Author Organization [employer] [facility] Address [address] [place] [address] Care Team Providers Care Counter Intelligence Agent Name Role Phone Unavailable Primary Care Provider Unavailabl e Reason for Visit * Reason Onset Date Comments New patient appt. 11/01/2024 Encounter Details Date Type Department Care Team (Late Contact Info) Description 11/01/2024 Telephone [facility] MEDICINE [address] [place] [address] Marcos Friedman MD [address] [place], [place] [phone] New patient appt. Social History Tobacco Use Types Packs/Day Years [...] encounter Miscellaneous Notes * Telephone Encounter - Emma Ashraf - 11/01/2024 2:25 PM EST Outgoing call to pt to book ULTRASOUND TECHNOLOGIST SONOGRAPHER appt. No answer. Left Message. documented in this encounter Plan of Treatment Upcoming Encounters Date Type Department Care Team (Late Contact Info) Description 12/16/2024 11:00 AM EST Office Visit [facility] CH[facility] ADULT DENTAL [address] [place] [address] Neha Felder DMD [address] [place] [address] 12/21/2024 9:00 AM EST Telemedicine [facility] MED & PEDS [address] [place] [address] Hernan Urbina MD [address] [place] [address] 02/14/2025 10:00 AM EDT Office Visit [facility] ADULT DENTAL [address] [place] [address] Domingo Spence documented as of this encounter Visit Diagnoses Not on filedocumented in this encounter
--- OUTSIDE RECORDS SUMMARY | 2024-11-29 17:13 | XMS_ITS | Encounter Summary ---
Author Organization [employer] Address [address] [place] [address] Care Team Providers Care Associate Director Of Sales Name Role Phone Unavailable Primary Care Provider Unavailabl e Reason for Visit * Reason Onset Date Comments Appointment 05/20/2023 Encounter Details Date Type Department Care Team (Late st Contact Info) Description 05/20/2023 Telephone [facility] [address] [place] [address] Thompson Cobb, DDS [address] [facility] [address] Appointment Social History Tobacco Use Types Packs/Day Years [...] Orientation Straight 09/02/2022 10 :20 AM EDT COVID-19 Exposure Response Date Recorded In the last 10 days, have yo u been in contact with someone who was confirmed or suspected to have Coronavirus/COVID-19? No / Unsure 05/09/2023 8:48 AM EDT documented as of this encounter Miscellaneous Notes * Telephone Encounter - Seda Wilkins - 05/20/2023 2:50 PM EDT Meena Hidalgo 1955 Patient called in and asked if Pre -op medication was sent to pharmacy.Patient stated she called pharmacy and nothing was sent yet patient appt is on 05/29/23. Please advise documented in this encounter Plan of Treatment Upcoming Encounters Date Type Department Care Team (Late st Contact Info) Description 12/16/2024 11:00 AM EST Office Visit [facility] ADULT DENTAL [address] [place] [address] Neha Felder DMD [address] [place] [address] 12/21/2024 9:00 AM EST Telemedicine [facility] MED & PEDS [address] [place] [address] Hernan Urbina MD [address] [place] [address] 02/14/2025 10:00 AM EDT Office Visit [facility] ADULT DENTAL [address] [place] [address] Domingo Spence documented as of this encounter Visit Diagnoses Not on filedocumented in this encounter
--- OUTSIDE RECORDS SUMMARY | 2024-11-29 17:13 | XMS_ITS | Encounter Summary ---
Author Organization [employer] [facility] Address [address] [place] [address] [address] [place] [address] Care Team Providers Care Can Cutter Name Role Phone Unavailable Primary Care Provider Unavailabl e Encounter Details Date Type Department Care Team (Late Contact Info) Description 11/16/2024 Orders Only [facility] ADULT DENTAL [address] [place] [address] Neha Felder DMD [address] [place] [address] Social History Tobacco Use Types Packs/Day Years [...] Description 12/16/2024 11:00 AM EST Office Visit [facility] ADULT DENTAL [address] [place] [address] Neha Felder DMD [address] [place] [address] 12/21/2024 9:00 AM EST Telemedicine [facility] MED & PEDS [address] [place] [address] Hernan Urbina MD [address] [place] [address] 02/14/2025 10:00 AM EDT Office Visit [facility] ADULT DENTAL [address] [place] [address] Domingo Spence documented as of this encounter Visit Diagnoses Not on filedocumented in this encounter
--- OUTSIDE RECORDS SUMMARY | 2024-11-29 17:13 | XMS_ITS | Encounter Summary ---
Author Organization [employer] [facility] Address [address] [facility] 7 [place] [address] Care Team Providers Care Metal Casket Assembler Name Role Phone Unavailable Primary Care Provider Unavailabl e Reason for Visit * Reason Comments King William Prep Encounter Details Date Type Department Care Team (Late st Contact Info) Description 11/17/2024 1:00 PM EST Office Visit [facility] ADULT DENTAL [address] [place] [address] Neha Felder DMD [address] [place] [address] Social History Tobacco Use Types Packs/Day Years [...] AM EDT documented as of this encounter Last Filed Vital Signs Vital Sign Reading Time Taken Comments Blood Pressure 130/78 11/17/2024 1:42 PM EST Pulse - - Temperature - - Respiratory Rate - - Oxygen Saturation - - Inhaled Oxygen Concentration - - Weight - - Height - - Body Mass Index - - documented in this encounter Progress Notes * Neha Felder DMD - 11/17/2024 1:00 PM EST Dental procedures in this visit D2700.1 - CROWN PREP 8 (Completed) Service provider: Neha Felder DMD Billing provider: Jossy Kee DDS D2700.1 - CROWN PREP 9 (Completed) Service provider: Neha Felder DMD Billing provider: Jossy Kee DDS [id number] - ADJUNCTIVE GENERAL SERVICES - PROFESSIONAL VISITS - CASE PRESENTATION, SUBSEQUENT TO DETAILED AND EXTENSIVE TREATMENT PLANNING (Completed) Service provider: Neha Felder DMD Billing provider: Jossy Kee DDS Patient ID: Meena Hidalgo is a 69 y.o. female. Time Out: Date: 11/17/2024 Location: [facility] Tooth: #8 and #9 Procedure: King William Verified the above with patient, museum assistant, and provider. Confirmed via patient's chart, intraorally and by radiographs. Asset Availability Leader: not applicable BruxZir crown preparations on #8 & #[address] Neha Felder DMD Risk, benefits, and alternatives discussed with the patient. CONSENT FORM INITIALED & SIGNED BY THE PATIENT AND COUNTERSIGNED BY Dr. Neha Felder DMD Medical history: Reviewed in EHR Vitals: Blood pressure 130/78. Allergies: Reviewed in EHR Medications: Reviewed in EHR - LA used: 20% topical benzocaine; patient refused any other anesthesia. - Patient presents with provisional crowns on #8 and #9 intact. Patient not experiencing any pain. - Provisional crowns removed. - King William prep completed on #8 & #9 - Size 000 retraction cord with hemodent placed in gingival sulcus - Retraction cord removed - Impression of crown prep recorded with light and heavy body PVS - Integrity placed in PVS impression and placed in mouth for fabrication of new provisionals - Impression and provisional removed from mouth - Provisional margins adjusted and checked on #8 and #9 - Flowable composite used to approximate margins - Occlusion checked and adjusted as needed using articulating paper - King William seated with Temp-Arguelles cement - Margin adaptation confirmed by clinical examination. - Proximal contact confirmed and cleaned with floss - Shade A2 selected Patient given post-op instructions. Patient states she broke filling on tooth #14. Scientology done at [facility] Jun 2024. Scientology to be re-done at future appointment. Patient states she is not wearing lower RPD as it is sore on the LR region. Requested patient to bring RPD to next appointment for adjustments to protect the remaining dentition. All patient questions answered. Patient comfortable upon dismissal. NV: Restorative // Seating of #8 and #9 King William Provider: Dr. Neha Felder DMD Jammer Operator: Brandie Zamorano Supervising Dentist: Dr. Jossy Kee DDS * Jossy Kee DDS - 11/17/2024 1:00 PM EST I have reviewed the documentation and dental procedures completed by the rendering provider, Neha Felder DMD, and approve their chart entries for this visit. FENG Mehta DDS documented in this encounter Plan of Treatment Upcoming Encounters Date Type Department Care Team (Late st Contact Info) Description 12/16/2024 11:00 AM EST Office Visit [facility] ADULT DENTAL [address] [place] [address] Neha Felder DMD [address] [place] [address] 12/21/2024 9:00 AM EST Telemedicine [facility] MED & PEDS [address] [place] [address] MD [address] [place] [address] 02/14/2025 10:00 AM EDT Office Visit [facility] ADULT DENTAL [address] [place] [address] Domingo Spence Scheduled Orders Name Type Priority Associated Diagnoses Orde r Schedule NO CHARGE - REDO PROCEDURE Dental Routine [address] arting 11/17/2024 14 MO 14 MO RESTORATIVE - RESIN-BASED COMPOSITE RESTORATIONS - DIRECT - RESIN-BASED COMPOSITE - TWO SURFACES, POSTERIOR Dental Routine 1 Occur rences starting 11/17/2024 DENTAL LAB FIXED Dental Routine Ordered: 11/17/2024 documented as of this encounter Procedures Procedure Name Priority Date/Time Associated Diagnosis Comments 9 CROWN PREP Routine 11/17/2024 1:00 PM EST 8 CROWN PREP Routine 11/17/2024 1:00 PM EST ADJUNCTIVE GENERAL SERVICES - PROFESSIONAL VISITS - CASE PRESENTATION, SUBSEQUENT TO DETAILED AND EXTENSIVE TREATMENT PLANNING Routine 11/17/2024 1:00 PM EST documented in this encounter Visit Diagnoses Not on filedocumented in this encounter
--- OUTSIDE RECORDS SUMMARY | 2024-11-29 17:13 | XMS_ITS | Encounter Summary ---
Author Organization [facility] [facility] Address [address] [facility] [address]t [place] [address] Care Team Providers Care Boom Tender Name Role Phone Unavailable Primary Care Provider Unavailabl e Reason for Visit * Reason Onset Date Comments Appointment 11/17/2024 Encounter Details Date Type Department Care Team (Late st Contact Info) Description 11/17/2024 Telephone [facility] MED & PEDS [address] [place] [address] Hernan Urbina MD [address] [place] [address] Appointment Social History Tobacco Use Types Packs/Day [...] encounter Miscellaneous Notes * Telephone Encounter - Nathan Moya - 11/17/2024 4:09 PM EST 11/17/24 pt walked in stating she had missed a call from Emma r/rasheeda ching pt appt. I verified messageand scheduled pt for 12/21/2024. documented in this encounter Plan of Treatment Upcoming Encounters Date Type Department Care Team (Late st Contact Info) Description 12/16/2024 11:00 AM EST Office Visit [facility] ADULT DENTAL [address] [place] [address] Neha Felder DMD [address] [place] [address] 12/21/2024 9:00 AM EST Telemedicine [facility] MED & PEDS [address] [place] [address] Hernan Urbina MD [address] [place] [address] 02/14/2025 10:00 AM EDT Office Visit [facility] ADULT DENTAL [address] [place] [address] Domingo Spence documented as of this encounter Visit Diagnoses Not on filedocumented in this encounter
--- OUTSIDE RECORDS SUMMARY | 2024-11-29 17:13 | XMS_ITS | Patient Health Record ---
Author Organization [facility] Address [address] [place] [address] Care Team Providers Care Clinical Unit Coordinator Name Role Phone Seun NAYAK, Carri Ramírez Primary Care Provider Un available Kathrine Cheema Unavailable [phone] Allergies Allergen (clinical drug ingredient) Drug/Non Drug Allergy documented on EMR Reaction Allergy Type Onset Date Status oxycodone OxyContin hallucination Drug Allergy Act leif shrimp allergenic extract Shrimp (Diagnostic) Unknown Drug Allergy Active Shellfish (FN) Shellfish-derived Products Unknown Drug Allergy Active vitamin D Vitamin D hallucinations Drug Allergy Ac tive Reason For Referral No Information Medications Medication SIG (Take, Route, Frequency, Duration) Notes Start Date End Date Status Extra Depth Orthopedic Shoes (1 Pair) with Customized Heat Molded Multidensity Innersoles (3 Pair) as directed Dx: NIDDM/Polyneuropathy (E11.42), Hammertoe Foot Deformity (M20.41,M20.42), Preulcerative Skin Lesion(s) (L85.1 07/23/2019 Active Metoprolol Succinate ER 50 MG 1 tablet Orally Once a day for 30 day(s) Active Rosuvastatin Calcium 40 MG 1 tablet Oral ly Once a day for 30 day(s) Active Methylprednisolone N ot-Taking Eliquis 5 MG as directed Orally Active Farxiga 10 MG 1 tablet Orally Once a day for 30 day(s) Active Brilinta 90 MG 1 tablet Orally Twic e a day for 30 day(s) Not-Taking Vitamin D3 2000 UNIT 1 capsule Orally On ce a day for 30 day(s) Not-Taking CeleBREX Active Acetaminophen 325 MG 1 tablet as needed Orally every 4 hrs Not-Taking Cyclobenzaprine HCl 10 MG 1 tablet as ne eded Orally Three times a day Not-Taking Ammonium Lactate 12 % 1 application to affected area Externally to feet Twice a day for 30 days Not-Taking Gabapentin Not-Takin g Lisinopril Not-Takin g Extra Depth Orthopedic Shoes (1 Pair) with Customized Heat Molded Multidensity Innersoles (3 Pair) as directed Dx: NIDDM/Polyneuropathy (E11.42), Hammertoe Foot Deformity (M20.41,M20.42), Preulcerative Skin Lesion(s) (L85.1 11/16/2024 Active Feldene 20 MG 1 capsule with food Orally Once a day as needed. Do NOt take any additional NSAIDs such as Motrin or Ibuprofen with this medication for 30 day(s) 01/07/2024 Active hydrOXYzine HCl 10 MG Oral for 30 Active Extra Depth Orthopedic Shoes (1 Pair) with Customized Heat Molded Multidensity Innersoles (3 Pair) as directed Dx: NIDDM/Polyneuropathy (E11.42), Hammertoe Foot Deformity (M20.41,M20.42), Preulcerative Skin Lesion(s) (L85.1 01/15/2022 Not-Taking Extra Depth Orthopedic Shoes (1 Pair) with Customized Heat Molded Multidensity Innersoles (3 Pair) as directed Dx: NIDDM/Polyneuropathy (E11.42), Hammertoe Foot Deformity (M20.41,M20.42), Preulcerative Skin Lesion(s) (L85.1 Not-Taking Januvia 100 MG Oral for 30 Act leif Extra Depth Orthopedic Shoes (1 Pair) with Customized Heat Molded Multidensity Innersoles (3 Pair) as directed Dx: NIDDM/Polyneuropathy (E11.42), Hammertoe Foot Deformity (M20.41,M20.42), Preulcerative Skin Lesion(s) (L85.1 04/23/2023 Active Repaglinide 2 MG TAKE ONE TABLET BY MOUTH THREE TIMES DAILY 30 MINUTES BEFORE A MEAL OR SNACK Oral for 30 Active Flovent HFA 110 MCG/ACT Inhalation for 60 Not-Taking Ammonium Lactate 12 % 1 application to affected area Externally to feet Twice a day for 30 days Active Arthritis Pain PRN Activ e Immunizations Vaccine Route Administration Date Status Comme nts COVID-19 [employer]/Elliot Unknown 04/12/2021 A dministered Influenza Unknown 08/25/2020 Refused Influenza Unknown 04/23/2023 Refused Social History Tobacco Use: Social History Observation Description Date Details (start date - stop date) Never Smoker NA - NA Tobacco Use/Smoking Question Answer Notes Are you a: nonsmoker Additional Findings: Tobacco Non-User Aggressive non-smoker Alcohol Screen Question Answer Notes Did you have a drink containing alcohol in the p ast year? No Points 0 Interpretation Negative Tobacco use other than smoking: Question Answer Notes Are you an other tobacco user? No Problems Problem Type SNOMED Code ICD Code Onset Dates Problem Status W/U Status Risk Notes Problem Acquired hammer toe of right foot (131248052241 9105) Other hammer toe(s) (acquired), right foot (M20.41) Active confirmed Problem Acquired hammer toe of left foot (320710374377 9103) Other hammer toe(s) (acquired), left foot (M20.42) Active confirmed Problem 479107890 Neuropathy (G62.9) Active confirmed Problem 88805022 Type 2 diabetes mellitus with polyneuropathy (E11.42) Active confirmed Problem 754403154 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) Active confirmed Vital Signs Blood pressure diastolic 76 mm Hg 11/16/2024 Height [id number] in 11/16/2024 Blood pressure systolic 130 mm Hg 11/16/2024 Weight 128 lbs 11/16/2024 BMI 25.85 kg/m2 11/16/2024 Encounters Encounter Location Date Provider [facility] [address] 01/07/2024 Kathrine Kanga Type 2 diabetes mellitus with polyneuropathy E11.42 ; Primary osteoarthritis of right ankle M19.071 and Acute right ankle pain M25.[address] [address] 03/19/2024 Kathrine Kanga Type 2 diabetes mellitus with polyneuropathy E11.[address] [address] 06/15/2024 Kathrine Perica Type 2 diabetes mellitus with [facility]neuropathy [facility]11.[facility] [address] [place] [address] 11/16/2024 Kathrine Anette Type 2 diabetes mellitus with polyneuropathy E11.42 ; Other hammer toe(s) (acquired), right foot M20.41 and Other hammer toe(s) (acquired), left foot M20.[address] [facility] [address] 06/15/2024 Kathrine Anette [facility] [address] 09/07/2024 Kathrine nAette [facility] [address] 09/07/2024 Kathrine Anette Assessments Encounter Date Diagnosis (ICD Code) Assessment Notes Treatment Notes Treatment Clinical Notes Section Notes 01/07/2024 Type 2 diabetes mellitus with polyneuropathy (ICD-10 - E11.42) 01/07/2024 Primary osteoarthritis of right ankle (ICD-10 - M19.071) 03/19/2024 Type 2 diabetes mellitus with polyneuropathy (ICD-10 - E11.42) 06/15/2024 Type 2 diabetes mellitus with polyneuropathy (ICD-10 - E11.42) 11/16/2024 Type 2 diabetes mellitus with polyneuropathy (ICD-10 - E11.42) 11/16/2024 Other hammer toe(s) (acquired), right foot (ICD-10 - M20.41) Patient Educated with: DIABETIC FOOT CARE INSTRUCTIONS. pdf (DIABETIC FOOT CARE INSTRUCTIONS. pdf) 01/07/2024 Acute right ankle pain (ICD-10 - M25.571) 11/16/2024 Other hammer toe(s) (acquired), left foot (ICD-10 - M20.42) Plan Of Treatment Pending Test Test Name Order Date X ray : Foot, left 3V 07/23/2019 X ray : Ankle, right 3V 11/05/2023 Next Appt Details Provider Name:Kathrine armando, 01/25/2025 02:30:00 PM, [address] [place] [address], [phone], Insurance Providers Payer Name Payer Address Payer Phone Subscriber Number Group Number Insured Name Patient Relationship to Insured Coverage Start Date Coverage End Date [facility] [employer] Claims [address] [place] Rodríguez [id number] Meena Hidalgo Self - patient is the insured Medical (General) History Medical History History ICD Code type 2 diabetes depression/anxiety hyperlipidemia psychophysiological insomnia osteopenia adnexal mass HTN asthma PR 02/24/19 fatty liver uterine fibroid Arthritis Back,Hip,and Knee pain CAD (Cholesterol) High blood pressure Sciatica Stomach ulcer covid-19 Surgical History Surgery Date(Month/Year) 2x wisdom teeth extraction ganglion cyst resection Left rotator cuff repair Left hand tendon repair Right fibroid removal Dr. Ferugson 2012 [facility] cardiac stent 03/2019 Right groin thrombectomy 03/2019 Left leg pain [facility] htn 05/2019 Stent 02/2019 Hospitalization History Reason Date(Month/Year) [facility]-bronchitis 08/26
--- OUTSIDE RECORDS SUMMARY | 2024-11-29 17:13 | XMS_ITS | Encounter Summary ---
Author Organization [employer] [facility] Address [address] [place] [address] Care Team Providers Care Cash Office Worker Name Role Phone Unavailable Primary Care Provider Unavailabl e Reason for Visit * Reason Onset Date Comments Appointment Request 11/01/2024 Encounter Details Date Type Department Care Team (Late st Contact Info) Description 11/01/2024 Telephone [facility] [address] [place] [address] Marcos Friedman MD [address] [place], [place] [phone] Appointment Request Social History Tobacco Use Types Packs/Day Years [...] Telephone Encounter - Emma Ashraf - 11/01/2024 11:49 AM EST [facility] wait list as of 11/01/24. * Telephone Encounter - Olya Alyson - 11/01/2024 11:21 AM EST TC from caller requesting NEW PATIENT visit . Medical condition: heart condition, diabetes and high cholesterol. Insurance name : [employer] [facility] Demographic information updated documented in this encounter Plan of Treatment Upcoming Encounters Date Type Department Care Team (Late st Contact Info) Description 12/16/2024 11:00 AM EST Office Visit [facility] [address] [place] [address] Neha Felder DMD [address] [place] [address] 12/21/2024 9:00 AM EST Telemedicine [facility] [address] [place] [address] Henran Urbina MD [address] [place] [address] 02/14/2025 10:00 AM EDT Office Visit [facility] [address] [place] [address] Domingo Spence documented as of this encounter Visit Diagnoses Not on filedocumented in this encounter
--- OUTSIDE RECORDS SUMMARY | 2024-11-29 17:13 | XMS_ITS | Encounter Summary ---
Author Organization [employer] [facility] Address [address] [place] [address] Care Team Providers Care Caul Fat Puller Name Role Phone Unavailable Primary Care Provider Unavailabl e Reason for Visit * Reason Comments Med Refill Encounter Details Date Type Department Care Team ([facility] Contact Info) Description 09/12/2023 Refill [facility] [address] [place] [address] Christopher Spence MD [address] [place] [address] Social History Tobacco Use Types Packs/Day Years [...] Upcoming Encounters Date Type Department Care Team ([facility] Contact Info) Description 12/16/2024 11:00 AM EST Office Visit [facility] ADULT D[facility] [address] [place] [address] Neha Felder DMD [address] [place] [address] 12/21/2024 9:00 AM EST Telemedicine [facility] [address] [place] [address] Hernan Urbina MD [address] [place], [place] [phone] 02/14/2025 10:00 AM EDT Office Visit [facility] AD[facility] [address] [place] [address] Domingo Spence documented as of this encounter Visit Diagnoses Not on filedocumented in this encounter
--- OUTSIDE RECORDS SUMMARY | 2024-11-29 17:13 | XMS_ITS | Encounter Summary ---
Author Organization [employer] [facility] Address [address] [place] [address] [address] [place] [address] Care Team Providers Care Masonry Installer Name Role Phone Unavailable Primary Care Provider Unavailabl e Encounter Details Date Type Department Care Team (Latest Contact Info) Description 02/02/2021 Abstract [facility] CONVERSIONS Dental, Provider, DDS Social History Tobacco Use Types Packs/Day Years [...] Description 12/16/2024 11:00 AM EST Office Visit [facility] ADULT D[facility] [address] [place] [address] Neha Felder DMD [address] [place] [address] 12/21/2024 9:00 AM EST Telemedicine [facility] [address] [place] [address] Hernan Urbina MD [address] [place] [address] 02/14/2025 10:00 AM EDT Office Visit [facility] ADULT [facility] [address] [place] [address] Domingo Spence documented as of this encounter Visit Diagnoses Not on filedocumented in this encounter
--- OUTSIDE RECORDS SUMMARY | 2024-11-29 17:13 | XMS_ITS | Encounter Summary ---
Author Organization [employer] [facility] Address [address] [place] [address] [address] [place] [address] Care Team Providers Care Silica Spray Mixer Name Role Phone Unavailable Primary Care Provider Unavailabl e Encounter Details Date Type Department Care Team (Latest Contact Info) Description 04/15/2022 Abstract [facility] CONVERSIONS Dental, Provider, DDS Social History Tobacco [...] Description 12/16/2024 11:00 AM EST Office Visit [facility] [address] [place] [address] Neha Felder DMD [address] [place] [address] 12/21/2024 9:00 AM EST Telemedicine [facility] [address] [place] [address] Hernan Urbina MD [address] [place] [address] 02/14/2025 10:00 AM EDT Office Visit [facility] [address] [place] [address] Domingo Spence documented as of this encounter Visit Diagnoses Not on filedocumented in this encounter
--- OUTSIDE RECORDS SUMMARY | 2024-11-29 17:13 | XMS_ITS | Encounter Summary ---
Author Organization [employer] [facility] Address [address] [place] [address] Care Team Providers Care Pencil Inspector Name Role Phone Unavailable Primary Care Provider Unavailabl e Encounter Details Date Type Department Care Team (Latest Contact Info) Description 11/10/2024 Travel Social History Tobacco Use Types Packs/Day Years [...] 11:00 AM EST Office Visit [facility] [address] [place] [address] Neha Felder DMD [address] [place] [address] 12/21/2024 9:00 AM EST Telemedicine [facility] [address] [place] [address] Hernan Urbina MD [address] [place] [address] 02/14/2025 10:00 AM EDT Office Visit [facility] [address] [place] [address] Domingo Spence documented as of this encounter Visit Diagnoses Not on filedocumented in this encounter
--- OUTSIDE RECORDS SUMMARY | 2024-11-29 17:13 | XMS_ITS ---
Author Organization [facility] Address [address] [place] [address] Care Team Providers Care Counter Top Assembler Name Role Phone Seun NAYAK, Carri Ramírez Primary Care Provider Un available Kathrine Cheema Unavailable [phone] REASON FOR VISIT r/s for sooner apt Encounters Encounter Location Date Provider Diagnosis [facility] [address] [place] [address] 11/19/2024 Kathrine Cheema Plan Of Treatment Next Appt Details Provider Name:Kathrine armando, 01/25/2025 02:30:00 PM, [address] [place], [address], Progress Notes * Judie TOLLIVERB:[birth year] (69 yo F)Acc No.[id number]:11/19/2024 Progress Note Patient:?Meena TOLLIVER Provider:?Kathrine Cheema DPM :1955???Age:69 Y???Sex:Female D ate:11/19/2024 Address:[address] [place] [address], [address], [place], [place] Pcp:Alvin Rodriguez Subjective: * Chief Complaints: * ???1. R/s for sooner apt. * Medical History:? Objective: * Vitals:? Assessment: Plan: * Treatment: * Images: * The named appointment provid er may or may not be the originator of this progress note, and it is not deemed complete until electronically signed by the appointment provider. Sign off status: Pending * Provider:?Kathrine Cheema DPM Date:? Generated for Osmar brito/Raheel/Bridgett on:?11/29/2024 05:13 PM EST
--- OUTSIDE RECORDS SUMMARY | 2024-11-29 17:13 | XMS_ITS | Encounter Summary ---
Author Organization [employer] [facility] Address [address] [place] [address] 7 [place] [address] Care Team Providers Care Freight Team Associate Name Role Phone Unavailable Primary Care Provider Unavailabl e Encounter Details Date Type Department Care Team (Latest Contact Info) Description 04/14/2019 Abstract [facility] CONVERSIONS Dental, Provider, DDS Social [...] Description 12/16/2024 11:00 AM EST Office Visit [facility] ADULT D[facility] [address] [place] [address] Neha Felder DMD [address] [place] [address] 12/21/2024 9:00 AM EST Telemedicine [facility] [address] [place] [address] Hernan Urbina MD [address] [place] [address] 02/14/2025 10:00 AM EDT Office Visit [facility] [address] [place] [address] Domingo Spence documented as of this encounter Visit Diagnoses Not on filedocumented in this encounter
--- OUTSIDE RECORDS SUMMARY | 2024-11-29 17:13 | XMS_ITS | Encounter Summary ---
Author Organization [employer] [facility] Address [address] [place] [address] Care Team Providers Care Chlorobutadiene Scrubber Operator Name Role Phone Unavailable Primary Care Provider Unavailabl e Encounter Details Date Type Department Care Team (Latest Contact Info) Description 11/17/2024 Travel Social History Tobacco Use Types Packs/Day [...] AM EST Office Visit [facility] [address] [place] [address] Neha Felder DMD [address] [place] [address] 12/21/2024 9:00 AM EST Telemedicine [facility] [address] [place] [address] Hernan Urbina MD [address] [place] [address] 02/14/2025 10:00 AM EDT Office Visit [facility] [address] [place] [address] Domingo Spence documented as of this encounter Visit Diagnoses Not on filedocumented in this encounter
--- OUTSIDE RECORDS SUMMARY | 2024-11-29 17:13 | XMS_ITS | Clinical Summary ---
Author Organization [employer] Address [address] [place] [address] Care Team Providers Care Agronomy Professor Name Role Phone Unavailable Primary Care Provider Unavailabl e Allergies Active Allergy Reactions Criticality Noted Date Comments Oxycodone 03/03/2017 Shrimp Extract 03/15/2016 Medications glucose blood (FREESTYLE LITE) test strip 8 Active atorvastatin (Lipitor) 80 MG tablet Take 1 tablet by mouth at bed time. 9 Active metoprolol tartrate (Lopressor) 50 MG tablet take 1 tablet by oral route twice daily 9 Active acetaminophen (Tylenol) 325 MG tablet Take 1 tablet by mouth every 4 (four) hours. 9 Active dapagliflozin (Farxiga) 10 MG Take 1 tablet by mouth at bed time. 9 Active mirtazapine (Remeron) 7.5 MG tablet Take 1 tablet by mouth at bed time. 9 Active ticagrelor (Brilinta) 90 MG tablet Take 1 tablet by mouth every 12 (twelve) hours. 9 Active apixaban (Eliquis) 5 MG tablet Take 1 tablet by mouth every 12 (twelve) hours. Active cholecalciferol (Vitamin D-3) 50 MCG (1999) capsule Active rosuvastatin (Crestor) 10 MG tablet Take 1 tablet by mouth in the morning. Active amoxicillin (Amoxil) 500 MG capsule take 4 capsules by oral route one hour before the dental appointment 0 Active acetaminophen (Tylenol) 500 MG tablet Take 1 tablet by mouth every 8 (eight) hours. 2 Active amoxicillin (Amoxil) 500 MG capsule Take 4 capsules one hour before the dental appointment 12 capsule 3 Active celecoxib (CeleBREX) 100 MG capsule Take 100 mg by mouth in the morning. 4 Active metoprolol succinate XL (Toprol-XL) 200 MG 24 hr tablet Take 200 mg by mouth in the morning. 4 Active amoxicillin (Amoxil) 500 MG capsule Take 4 capsules one hour before the dental appointment. 16 capsule 4 Active amoxicillin (Amoxil) 500 MG capsule Take 4 tabs (2 grams) 1 hour prior to dental procedure 12 capsule 3 4 Active amoxicillin (Amoxil) 500 MG capsule Take 4 tabs (2 grams) 1 hour prior to dental procedure 16 capsule 4 Active amoxicillin (Amoxil) 500 MG capsule Take 4 tabs (2 grams) 1 hour prior to dental procedure 16 capsule 3 5 Active Encounters Date Type Department Care Team Description 11/17/2024 1:00 PM EST Office Visit [facility] ADULT DENTAL [address] [place] [address] Neha Felder, DMD 11/17/2024 Telephone [facility] MED & PEDS [address] [place] [address] Hernan Urbina MD Appointment 11/17/2024 Travel 11/16/2024 Orders Only [facility] ADULT DENTAL [address] [place] [address] Neha Felder, DMD 11/15/2024 Telephone [facility] ADULT DENTAL [address] [place] [address] Neha Felder, GLORIA 11/10/2024 Travel 11/01/2024 Telephone [facility] MEDICINE [address] [place] [address] Marcos Friedman MD New patient appt. 11/01/2024 Telephone [facility] MEDICINE [address] [place] [address] Marcos Friedman MD Appointment Request 10/12/2024 9:00 AM EST Office Visit [facility] ADULT DENTAL [address] [place] [address] Neha Felder, DMD 10/05/2024 Travel from Last 3 Months Social History Tobacco Use Types Packs/Day Years Used Date Smoking Tobacco: Never Passive Smoke Exposure: Never Smokeless Tobacco: Never Tobacco Cessation:Counseling Given: Not Answered Alcohol Use Standard Drinks/Week Comments Never 0 (1 standard drink = 0.6 oz pur e alcohol) Comments Unknown Sex and Gender Information Value Date Recorded Sex Assigned at Female 09/02/2022 10:20 AM EDT Legal Sex Female 10:20 AM EDT Gender Identity Female 09/02/2022 10:20 AM EDT Sexual Orientation Straight 09/02/2022 10 :20 AM EDT Last Filed Vital Signs Vital Sign Reading Time Taken Comments Blood Pressure 130/78 11/17/2024 1:42 PM EST Pulse 65 08/13/2024 8:08 AM EDT Temperature - - Respiratory Rate - - Oxygen Saturation - - Inhaled Oxygen Concentration - - Weight - - Height - - Body Mass Index - - Plan of Treatment Upcoming Encounters Date Type Department Care Team (Late st Contact Info) Description 12/16/2024 11:00 AM EST Office Visit [facility] ADULT DENTAL [address] [place] [address] Neha Felder DMD [address] [place] [address] 12/21/2024 9:00 AM EST Telemedicine [facility] MED [facility] PED[facility] [address] [place] [address] Hernan Urbina MD [address] [place] [address] 02/14/2025 10:00 AM EDT Office Visit [facility] ADULT DENTAL [address] [place] [address] Domingo Spence Health Maintenance Due Date Last Done Comments CT Colonography 1956 Colonoscopy 1956 Colorectal Cancer Screening 1956 Depression Screening 1956 FIT DNA/Cologuard 1956 FIT 1956 FOBT 1956 Lipid Panel 1956 SDOH Screening 1956 Sigmoidoscopy 1956 Alcohol/Substance Use Screening 1968 Hepatitis C Screening 01/31/1974 Hepatitis A Vaccines (1 of 2 - Risk 2-dose series) 01/31/1975 Hepatitis B Vaccines (1 of 3 - Risk 3-dose series) 2016 RSV Patients and Patients Aged 60 years or older (1 - Risk 60-74 years 1-dose series) 2016 Zoster Vaccines (2 of 3) 07/25/2017 05/30/2017 Mammogram 01/26/2021 01/26/2019, 07/27/2018, 07/21/2018 Pneumococcal Vaccine: 65+ Years (1 of 1 - PCV) 01/31/2021 COVID-19 Vaccine (1 - 2023-2 5 season) 2024 Influenza Vaccine (#1) 2024 Dental Oral Exam 02/12/2025 08/13/2024, 02/11/2024, 04/16/2023 Dental Prophylaxis 02/12/2025 08/13/2024, 02/11/2024, 04/16/2023 Dental X-Ray: Bitewings 08/14/2025 08/13/20, 06/17/2024, 04/16/2023 Tobacco Screening 10/12/2025 10/12/2024 Dental X-Ray: Full Mouth 04/26/2026 04/25/2023 DTaP/Tdap/Td Vaccines (2 - T d or Tdap) 05/30/2027 05/30/2017 HIB Vaccines Aged Out No longer eligi ble based on patient's age to complete this topic HPV Vaccines Aged Out No longer eligi ble based on patient's age to complete this topic IPV Vaccines Aged Out No longer eligi ble based on patient's age to complete this topic Meningococcal Vaccine Aged Out No elisabeth bala eligible based on patient's age to complete this topic RSV under 20 months Aged Out No longe r eligible based on patient's age to complete this topic Rotavirus Vaccines Aged Out No longer eligible based on patient's age to complete this topic Procedures Procedure Name Priority Date/Time Associated Diagnosis Comments ADJUNCTIVE GENERAL SERVICES - PROFESSIONAL VISITS - CASE PRESENTATION, SUBSEQUENT TO DETAILED AND EXTENSIVE TREATMENT PLANNING Routine 11/17/2024 1:00 PM EST 9 CROWN PREP Routine 11/17/2024 1:00 PM EST 8 CROWN PREP Routine 11/17/2024 1:00 PM EST ADJUNCTIVE GENERAL SERVICES - PROFESSIONAL VISITS - CASE PRESENTATION, SUBSEQUENT TO DETAILED AND EXTENSIVE TREATMENT PLANNING Routine 10/12/2024 9:00 AM EST 9 CROWN PREP Routine 10/12/2024 9:00 AM EST 8 CROWN PREP Routine 10/12/2024 9:00 AM EST 3 O RESTORATIVE - RESIN-BASED COMPOSITE RESTORATIONS - DIRECT - RESIN-BASED COMPOSITE - ONE SURFACE, POSTERIOR Routine 10/12/2024 9:00 AM EST Full PROPHYLAXIS - ADULT Routine 08/13/2024 8:00 AM EDT BITEWINGS - 4 RADIOGRAPHIC IMAGES Routine 08/13/2024 8:00 AM EDT PERIODIC ORAL EVALUATION - ESTABLISHED PATIENT Routine 08/13/2024 8:00 AM EDT PANORAMIC RADIOGRAPHIC IMAGE Routine 04/25/2023 1:30 PM EDT MAMMOGRAM GENERIC Routine 01/26/2019 1:3 4 PM EDT from Last 3 Months or Most Recently Relevant to Health Maintenance Results * 3D UNI DIGITAL DX MAMMO 1 (01/26/2019 1:34 PM EDT) Anatomical Region Laterality Modality Breast Bilateral Mammography 01/26/2019 1:34 PM EDT Narrative 01/26/2019 1:34 PM EDT Refer to the Notes tab for result details Legacy Procedure: 3D UNI DIGITAL DX MAMMO 1 Procedure Note Provider, MD Stuart - 01/25/2023 Refer to the Notes tab for result details Legacy Procedure: 3D UNI DIGITAL DX MAMMO 1 Christopher Spence MD IMG BI PROCEDURES Final Res ult from Last 3 Months or Most Recently Relevant to Health Maintenance Insurance [place] [id number] [facility]
--- OUTSIDE RECORDS SUMMARY | 2024-11-29 17:13 | XMS_ITS | Encounter Summary ---
Author Organization [facility] Address [address] [place] [address] Care Team Providers Care Production Planning Manager Name Role Phone Unavailable Primary Care Provider Unavailabl e Encounter Details Date Type Department Care Team (Late st Contact Info) Description 11/15/2024 Telephone [facility] ADULT DENTAL [address] [place], [place] [phone] Neha Felder DMD [address] [place], [place] [phone] Social History Tobacco Use Types Packs/Day Years [...] * Telephone Encounter - Whitney Pressley - 11/15/2024 11:09 AM EST Patient needs her antibiotics before her procedure please send to her she see u 11/17 documented in this encounter Plan of Treatment Upcoming Encounters Date Type Department Care Team (Late st Contact Info) Description 12/16/2024 11:00 AM EST Office Visit [facility] ADULT [facility] [address] [place] [address] Neha Felder DMD [address] [place], [place] [phone] 12/21/2024 9:00 AM EST Telemedicine [facility] MED [facility] PED[facility] [address] [place] [address] Hernan Urbina MD [address] [place] [address] 02/14/2025 10:00 AM EDT Office Visit [facility] AD[facility] [address] [place] [address] Domingo pSence documented as of this encounter Visit Diagnoses Not on filedocumented in this encounter
--- OUTSIDE RECORDS SUMMARY | 2024-11-29 17:14 | XMS_ITS ---
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 Name Role Phone Seun NAYAK, Carri Ramírez Primary Care Provider Un available Kathrine Cheema Unavailable [phone] Allergies Allergen (clinical drug ingredient) Drug/Non Drug Allergy documented on EMR Reaction Allergy Type Onset Date Status oxycodone OxyContin hallucination Drug Allergy Act leif shrimp allergenic extract Shrimp (Diagnostic) Unknown Drug Allergy Active Shellfish (FN) Shellfish-derived Products Unknown Drug Allergy Active vitamin D Vitamin D hallucinations Drug Allergy Ac tive REASON FOR VISIT At Risk Footcare, Toe Irritation Medications Medication SIG (Take, Route, Frequency, Duration) Notes Start Date End Date Status Methylprednisolone N ot-Taking Brilinta 90 MG 1 tablet Orally Twic e a day for 30 day(s) Not-Taking Vitamin D3 2000 UNIT 1 capsule Orally On ce a day for 30 day(s) Not-Taking Acetaminophen 325 MG 1 tablet as needed Orally every 4 hrs Not-Taking Cyclobenzaprine HCl 10 MG 1 tablet as ne eded Orally Three times a day Not-Taking Extra Depth Orthopedic Shoes (1 Pair) with Customized Heat Molded Multidensity Innersoles (3 Pair) as directed Dx: NIDDM/Polyneuropathy (E11.42), Hammertoe Foot Deformity (M20.41,M20.42), Preulcerative Skin Lesion(s) (L85.1 01/15/2022 Not-Taking Extra Depth Orthopedic Shoes (1 Pair) with Customized Heat Molded Multidensity Innersoles (3 Pair) as directed Dx: NIDDM/Polyneuropathy (E11.42), Hammertoe Foot Deformity (M20.41,M20.42), Preulcerative Skin Lesion(s) (L85.1 Not-Taking Ammonium Lactate 12 % 1 application to affected area Externally to feet Twice a day for 30 days Not-Taking Gabapentin Not-Takin g Lisinopril Not-Takin g Feldene 20 MG 1 capsule with food Orally Once a day as needed. Do NOt take any additional NSAIDs such as Motrin or Ibuprofen with this medication for 30 day(s) 01/07/2024 Active hydrOXYzine HCl 10 MG Oral for 30 Active Januvia 100 MG Oral for 30 Act leif Repaglinide 2 MG TAKE ONE TABLET BY MOUTH THREE TIMES DAILY 30 MINUTES BEFORE A MEAL OR SNACK Oral for 30 Active Flovent HFA 110 MCG/ACT Inhalation for 60 Not-Taking Extra Depth Orthopedic Shoes (1 Pair) [...] (M20.41,M20.42), Preulcerative Skin Lesion(s) (L85.1 04/23/2023 Active Ammonium Lactate 12 % 1 application to affected area Externally to feet Twice a day for 30 days Active Arthritis Pain PRN Activ e Metoprolol Succinate ER 50 MG 1 tablet Orally Once a day for 30 day(s) Active Rosuvastatin Calcium 40 MG 1 tablet Oral ly Once a day for 30 day(s) Active Farxiga 10 MG 1 tablet Orally Once a day for 30 day(s) Active CeleBREX Active Extra Depth Orthopedic Shoes (1 Pair) with Customized Heat Molded Multidensity Innersoles (3 Pair) as directed Dx: NIDDM/Polyneuropathy (E11.42), Hammertoe Foot Deformity (M20.41,M20.42), Preulcerative Skin Lesion(s) (L85.1 11/16/2024 Active Social History Tobacco Use: Social History Observation Description Date Details (start date - stop date) Never Smoker NA - NA Tobacco Use/Smoking Question Answer Notes Are you a: nonsmoker Additional Findings: Tobacco Non-User Aggressive non-smoker Tobacco use other than smoking: Question Answer Notes Are you an other tobacco user? No Vital Signs Height [id number] in 11/16/2024 Weight 128 lbs 11/16/2024 BMI 25.85 kg/m2 11/16/2024 Blood pressure systolic 130 mm Hg 11/16/19 Blood pressure diastolic 76 mm Hg 025 Encounters Encounter Location Date Provider Diagnosis [facility] [address] [address] 11/16/2024 Kathrine Cheema Type 2 diabetes mellitus with polyneuropathy E11.42 ; Other hammer toe(s) (acquired), right foot M20.41 and Other hammer toe(s) (acquired), left foot M20.42 Assessments Encounter Date Diagnosis (ICD Code) Assessment Notes Treatment Notes Treatment Clinical Notes Section Notes 11/16/2024 Type 2 diabetes mellitus with polyneuropathy (ICD-10 - E11.42) 11/16/2024 Other hammer toe(s) (acquired), right foot (ICD-10 - M20.41) Patient Educated with: DIABETIC FOOT CARE INSTRUCTIONS. pdf (DIABETIC FOOT CARE INSTRUCTIONS. pdf) 11/16/2024 Other hammer toe(s) (acquired), left foot (ICD-10 - M20.42) Plan Of Treatment Medication Medication Name Sig Start Date Stop Date Notes Extra Depth Orthopedic Shoes (1 Pair) with Customized Heat Molded Multidensity Innersoles (3 Pair) as directed Dx: NIDDM/Polyneuropathy (E11.42), Hammertoe Foot Deformity (M20.41,M20.42), Preulcerative Skin Lesion(s) (L85.1 11/16/2024 Treatment Notes Assessment Notes Other hammer toe(s) (acquired), right fo ot Patient Educated with: DIABETIC FOOT CARE INSTRUCTIONS.pdf (DIABETIC FOOT CARE INSTRUCTIONS.pdf) Next Appt Details Follow Up: 2 Months, Reason: Provider Name:Kathrine armando, 01/25/2025 02:30:00 PM, [address] [place] [address], [id number], Procedure Notes * Category Sub-Category Detail Notes Keratoma Treatment Parring or Cutting o f Benign Hyperkeratotic Lesion(s) (-57) More than 4 Lesions - Due to the at risk nature of the patients medical condition as documented in the exam findings, performance of this keratoderma treatment is medically necessary as its management by an unskilled/untrained nonprofessional would put this patients foot and overall health at risk. Therefore, the benign hyperkeratotic lesions, ( 8 ) in total, locations as stated and described in the exam ( TA, T5, SUB MTH (s), 5, B/L(s), Heels B/L, , Medial , PIPJ , T4 , T9 ), were pared, and/or cut utilizing a sterile 15 blade, tissue nippers, and/or power dremel instrumentation by the physician of record - [id number] Progress Notes * Judie TOLLIVERB:[birth year] (69 yo F)Acc No.[id number]:11/16/2024 Progress Note Patient:?Meena TOLLIVER Provider:?Kathrine Cheema DPM :1955???Age:69 Y???Sex:Female D ate:11/16/2024 Address:[address] [place], [place] [id number] Pcp:Alvin Rodriguez Subjective: * Chief Complaints: * ???At Risk FootcareToe Irrit ation * HPI: ???At Risk footcare:?Pt States Last PCP Visit:?Date?05/03/2024 ???Toe pain:?Location:?B/L feet.?Duration:?several years.?Course:?worse.?Aggravated by:?shoes, any pressure.?Treatments:?change in shoes.? * ROS:?General/Constitutional:?Nausea?denies.?Vomiting?denies.?Hunger Thirst?denies.?Loss appetite?denies.?Chills?denies.?Fatigue?denies.?Fever?denies.?Night Sweats?denies.?Unexplained weight loss?denies.?Unexplained weight gain?denies.?HEENTM:?Dentures?denies.?Dizziness?denies.?Glasses/contacts?admits.?Retinopathy?den ies.?Blurred/double vision?denies.?TMJ?denies.?Discharge/drainage?denies.?Implants?denies.?Sore throat?denies.?Dental implants?denies.?Hard of hearing ?denies.?Difficulty chewing/swallowing/speaking?denies.?Nose bleeds?denies.?Sore mouth?denies.?Respiratory:?On O xygen?denies.?Pneumonia/pleurisy?denies.?Bronchitis?denies.?Emphysema?denies.?Co ughing?denies.?Cough blood?denies.?Shortness of breath?denies.?Wheezing?denies.?Cardiovascular:?Pacemaker?denies.?MVP?denies.?WPW?denies.?CHF?denies.?Heart attack?denies.?Septal defect?denies.?Rapid beat?denies.?Chest pain ?denies.?Atrial Fib.?denies.?Murmur/Palpitations?denies.?Gastrointestinal:?Hemorrhoids?denies.?Stomach/Abdominal pain?denies.?Dark blood stool?denies.?Irritable bowel ?denies.?Constipation?denies.?Diarrhea?denies.?Hematology:?Swelling?denies.?Clots?denies.?Varicose Veins?denies.?Bruising?denies.?Bleeding problem?denies.?Genitourinary:?Blood urine?denies.?Frequent/Painfu/urination/bladder control?denies.?Kidney stones?denies.?Infection (UTI)?denies.?Nephropathy?denies.?sex trans dis (STD)?denies.?Prostate?denies.?Musculoskeletal:?Hammertoes?denies.?Bunions?denies.?Back Pain?denies.?Muscle Cramps/ Resting?denies.?Muscle cramps / walking?denies.?Generalized aches and pains?admits.?Weakness?denies.?Integ.:?Tobar?denies.?Scars?denies.?Corns/calluses?admits.?Ingrown nails?denies.?Painful nails?denies.?Open Sores?denies.?Rashes?denies.?Neurologic:?Difficulty sleeping?admits.?Brain disorder?denies.?Numbness?denies.?Balance t rouble?denies.?Confusion?denies.?Fainting/blackouts?denies.?Tingling?denies.?Sunil mors?denies.? * Medical History:? * Surgical History:? 2x wisdom teeth extraction ganglion cyst resection Left rotator cuff repair Left hand tendon repair Right fibroid removal Dr. Ferguson 2013[facility] cardiac stent 03/2019Right groin thrombectomy 03/2019Left leg pain [facility] htn 05/2019Stent 02/2019 * Hospitalization/Major Diagno stic Procedure:?[facility]-bronchitis 08/26 * Family History:?Mother: dece ased, diagnosed with Other malignant neoplasm of unspecified site, Diabetic - NIDDM, Unspecified essential hypertension.?Father: , diagnosed with Unspecified heart disease.?Paternal Grand Mother: diagnosed with Unspecified essential hypertension.? * Social History:?Tobacco Use:?Tobacco Use/Smoking?Are you a:?nonsmoker ?Additional Findings: Tobacco Non-User?Aggressive non-smoker ?Tobacco use other than smoking?Are you an other tobacco user??No * Medications:?TakingCeleBREX Rosuvastatin Calcium 40 MG Tablet 1 tablet Orally Once a day Metoprolol Succinate ER 50 MG Tablet Extended Release 24 Hour 1 tablet Orally Once a day Farxiga 10 MG Tablet 1 tablet Orally Once a day Eliquis 5 MG Tablet as directed Orally Extra Depth Orthopedic Shoes (1 Pair) with Customized Heat Molded Multidensity Innersoles (3 Pair) as directed Dx: NIDDM/Polyneuropathy (E11.42), Hammertoe Foot Deformity (M20.41,M20.42), Preulcerative Skin Lesion(s) (L85.1 Arthritis Pain , Notes to Pharmacist: PRNAmmonium Lactate 12 % Cream 1 application to affected area Externally to feet Twice a day Extra Depth Orthopedic Shoes (1 Pair) with Customized Heat Molded Multidensity Innersoles (3 Pair) as directed Dx: NIDDM/Polyneuropathy (E11.42), Hammertoe Foot Deformity (M20.41,M20.42), Preulcerative Skin Lesion(s) (L85.1 Januvia 100 MG Tablet Oral Repaglinide 2 MG Tablet TAKE ONE TABLET BY MOUTH THREE TIMES DAILY 30 MINUTES BEFORE A MEAL OR SNACK Oral hydrOXYzine HCl 10 MG Tablet Oral Feldene 20 MG Capsule 1 capsule with food Orally Once a day as needed. Do NOt take any additional NSAIDs such as Motrin or Ibuprofen with this medication Taking CeleBREX Taking Rosuvastatin Calcium 40 MG Tablet 1 tablet Orally Once a day Taking Metoprolol Succinate ER 50 MG Tablet Extended Release 24 Hour 1 tablet Orally Once a day Taking Farxiga 10 MG Tablet 1 tablet Orally Once a day Taking Eliquis 5 MG Tablet as directed Orally Taking Extra Depth Orthopedic Shoes (1 Pair) with Customized Heat Molded Multidensity Innersoles (3 Pair) as directed Dx: NIDDM/Polyneuropathy (E11.42), Hammertoe Foot Deformity (M20.41,M20.42), Preulcerative Skin Lesion(s) (L85.1 Taking Arthritis Pain , Notes to Pharmacist: PRNTaking Ammonium Lactate 12 % Cream 1 application to affected area Externally to feet Twice a day Taking Extra Depth Orthopedic Shoes (1 Pair) with Customized Heat Molded Multidensity Innersoles (3 Pair) as directed Dx: NIDDM/Polyneuropathy (E11.42), Hammertoe Foot Deformity (M20.41,M20.42), Preulcerative Skin Lesion(s) (L85.1 Taking Januvia 100 MG Tablet Oral Taking Repaglinide 2 MG Tablet TAKE ONE TABLET BY MOUTH THREE TIMES DAILY 30 MINUTES BEFORE A MEAL OR SNACK Oral Taking hydrOXYzine HCl 10 MG Tablet Oral Taking Feldene 20 MG Capsule 1 capsule with food Orally Once a day as needed. Do NOt take any additional NSAIDs such as Motrin or Ibuprofen with this medication Not-Taking/PRNFlovent HFA 110 MCG/ACT Aerosol Inhalation Extra Depth Orthopedic Shoes (1 Pair) with Customized Heat Molded Multidensity Innersoles (3 Pair) as directed Dx: NIDDM/Polyneuropathy (E11.42), Hammertoe Foot Deformity (M20.41,M20.42), Preulcerative Skin Lesion(s) (L85.1 Extra Depth Orthopedic Shoes (1 Pair) with Customized Heat Molded Multidensity Innersoles (3 Pair) as directed Dx: NIDDM/Polyneuropathy (E11.42), Hammertoe Foot Deformity (M20.41,M20.42), Preulcerative Skin Lesion(s) (L85.1 Ammonium Lactate 12 % Cream 1 application to affected area Externally to feet Twice a day Lisinopril Gabapentin Vitamin D3 2000 UNIT Capsule 1 capsule Orally Once a day Brilinta 90 MG Tablet 1 tablet Orally Twice a day Cyclobenzaprine HCl 10 MG Tablet 1 tablet as needed Orally Three times a day Acetaminophen 325 MG Tablet 1 tablet as needed Orally every 4 hrs Methylprednisolone Medication List reviewed and reconciled with the patientNot-Taking/PRN Flovent HFA 110 MCG/ACT Aerosol Inhalation Not-Taking/PRN Extra Depth Orthopedic Shoes (1 Pair) with Customized Heat Molded Multidensity Innersoles (3 Pair) as directed Dx: NIDDM/Polyneuropathy (E11.42), Hammertoe Foot Deformity (M20.41,M20.42), Preulcerative Skin Lesion(s) (L85.1 Not-Taking/PRN Extra Depth Orthopedic Shoes (1 Pair) with Customized Heat Molded Multidensity Innersoles (3 Pair) as directed Dx: NIDDM/Polyneuropathy (E11.42), Hammertoe Foot Deformity (M20.41,M20.42), Preulcerative Skin Lesion(s) (L85.1 Not-Taking/PRN Ammonium Lactate 12 % Cream 1 application to affected area Externally to feet Twice a day Not-Taking/PRN Lisinopril Not-Taking/PRN Gabapentin Not-Taking/PRN Vitamin D3 2000 UNIT Capsule 1 capsule Orally Once a day Not-Taking/PRN Brilinta 90 MG Tablet 1 tablet Orally Twice a day Not-Taking/PRN Cyclobenzaprine HCl 10 MG Tablet 1 tablet as needed Orally Three times a day Not-Taking/PRN Acetaminophen 325 MG Tablet 1 tablet as needed Orally every 4 hrs Not-Taking/PRN Methylprednisolone Medication List reviewed and reconciled with the patient * Allergies:?OxyContin: halluc inationShrimp (Diagnostic)Shellfish-derived ProductsVitamin D: hallucinations - Side Effectsyes[Allergies Verified] Objective: * Vitals:?Ht: 7pf38xd, Wt:128, BMI:25.85, Shoe size: 5, BP:130/76mm Hg, BS: not taken, Ht-cm: 149.86 cm, Wt-k.06 kg. * Examination: ???CQM Exceptions:: ?Hemoglobin A1c not performed?Ophthalmology Referral: ?DIABETES EYE EXAM?General Examination: ?GENERAL APPEARANCE:?Reveals a pleasant, alert, well nourished, well- developed, well hydrated individual, who demonstrates proper attention to hygiene/body habitus, and is in no acute distress, Pt serves as own historian for office visit today.?ORIENTED:?person, place, and time.?FOOT EXAM:?Footwear Evaluation?Neurological: ?SENSORY:?Neurological exam demonstrates, reduced light touch sensation, reduced sharp/dull pin prick discrimination, reduced vibration sensation, Pt relates, anesthesia, hyperesthesia, paresthesia, B/L.?Vascular: ?DP PULSES (B):? 1/4, B/L.?PT PULSES (B):? 1/4, B/L.?CAPILLARY FILL TIME:?immediate, all digits, B/L.?TROPHIC CONDITION-TEXTURE/ELASTICITY/TURGOR/HAIR GROWTH (B):?normal, B/L.?TEMPERTURE GRADIENT (C):?warm to cool, proximal to distal, B/L.?PIGMENTATION:?normal, B/L.?EDEMA (C):?absent, B/L.?Dermatologic: ?SKIN FINDINGS:?Skin exam reveals Keratotic lesion(s) located at, TA, T5, SUB MTH (s), 5, B/L(s), Heels B/L, , Medial , PIPJ , T4 , T9.?Orthopedic: ?MUSCLE STRENGTH:?5/5 all groups in a symmetrical fashion, B/L.?DIGITAL DEFORMITIES:?Digital contracture, PIPJ, 2-5 B/L, incompl-reducible to push-up test, no over, nor underlapping,?there is?evidence of shoe producing skin irritation.?FOOTWEAR:?worn, non-supportive, shoe gear properties exacerbate patient's foot/toe deformity.? Assessment: * Assessment: 1.?Type 2 diabetes mellitus with polyneuropathy - E11.42 (Primary)???2.?Other hammer toe(s) (acquired), right foot - M20.41???Specify :Chronic problem, Worse (4),Rx Management (4)???3.?Other hammer toe(s) (acquired), left foot - M20.42???Specify :Chronic problem, Worse (4),Rx Management (4)??? Plan: * Treatment: * Procedures:?Keratoma Treatment:?Parring or Cutting of Benign Hyperkeratotic Lesion(s)?(-57) More than 4 Lesions - Due to the at risk nature of the patients medical condition as documented in the exam findings, performance of this keratoderma treatment is medically necessary as its management by an unskilled/untrained nonprofessional would put this patients foot and overall health at risk. Therefore, the benign hyperkeratotic lesions, ( 8 ) in total, locations as stated and described in the exam (?TA,?T5,?SUB MTH (s),?5,?B/L(s), Heels?B/L,?,?Medial?,?PIPJ?,?T4?,?T9?), were pared, and/or cut utilizing a sterile 15 blade, tissue nippers, and/or power dremel instrumentation by the physician of record - [id number].? * Procedure Codes:?73753 TRIM SKIN LESIONS, OVER 4, Modifiers: XS * Preventive Medicine:? ??Counseling:?Discussion:?-14: Office or other outpatient visit for the evaluation and management of an established patient, which required a medically appropriate history and/or examination and MODERATE level of DECISION MAKING for: 1 OR MORE CHRONIC PROBLEM(S) THATS WORSENING, 2 STABLE CHRONIC PROBLEMS, A NEWLY DIAGNOSED PROBLEM WITH UNCERTAIN PROGNOSIS, AN ACUTE COMPLICATED INJURY WITH MULTIPLE TREATMENT OPTIONS, OR AN ACUTE PROBLEM WITH ACCOMPANYING SYSTEMIC SYMPTOMS, THAT POSE(S) A MODERATE RISK OF MORBIDITY. THIS CONDITION MAY ALSO INCLUDE RX DRUG MANAGEMENT, OR A DECISON FOR MINOR SURGERY. The visit on the day of the encounter encompassed interpreting the data and educating the patient as to the nature of their condition, treatment options available according to their individual PMH, meds, allergies, and overall health/living conditions, as well as any potential risks or complications that may occur from a failure to adhere to, and participate in, the recommended course of therapy. The discussion included a complete verbal, and/or written explanation of the examination results, any x-rays taken, the proposed diagnosis, and outline of the treatment plan. A schedule for future care needs was also explained. The patient verbalized an understanding of the instructions at this time and agreed to be an active participant in their treatment. If the patient should think of any questions or concerns after the visit, I have encouraged the patient to call the office.?Digital Surgery:?Digital surgery was discussed with the patient, We elected to try conservative treatment at the present time, due to the patients medical history and increased asssociated post-operative risks.?Digital Treatment:?HT- I explained to the patient the possible etiologies of Hammertoes, including genetics/foot type/shoegear/activity level/exercise routine and the risks/benefits of all the different treatment options for their pain including: No treatment at all, Rest, Ice, New/supportive/wider/deeper Shoegear, Digital Padding/Strapping/Taping/Bracing/Gel protective sleeves, Foot/Ankle AFO Bracing, Stretching exercises, Deep Tissue Massage, Arch support/shoe inserts with splay metatarsal padding, and Custom orthoses. I insisted that any digital devices be removed daily and not worn overnight for safety. The patient is to carefully examine the toes daily for any skin irritation while using any splinting or padding device. The advantages and disadvantages of each option were discussed and the patients questions re: shoegear, padding, custom vs prefabricated inserts, activity level, and consistency in home treatment regimens for optimal success were answered to their verbally confirmed satisfaction.?Shoe Gear Counseling:?SHOE Rx - The patient was counseled in great detail on their muscoloskeletal foot and toe deformities which coincided with the dermatological presentations visualized on exam. We discussed how their deformities put the integrity of their feet at risk for potential pedal complications which makes the accomidative diabetic shoes and cutomizable inserts medically necessary. We discussed the different shoe and insert treatment types and options, as well as the important advantages for adhering to regularly wearing these accomidative devices daily. The patient was made aware of the fact that a failure to abide by these recommedations may be deleterious to their foot health as they are able to prevent many pedal complications such as skin irritation, skin ulceration, infection, and even loss of toe/foot/leg/or life. Time was also spent with the patient dispensing and discussing proper diabetic footcare techniques including daily skin moisturization, daily foot inspection for any interruption in skin integrity including open lesions, or sign of infection such as redness/malodor/drainage/swelling. Also discussed and recommended were procedures regarding daily shoe inspection for the presence of internal foreign bodies as well as any visualized irregular shoe or insert wear. Patient questions re: shoes, inserts, and self foot inspections were answered to their satisfaction as the patient verbally confirmed a full understanding of the above information. A Rx for Extra Depth Orthopedic Shoes with 3 pair of custom heat-molded inserts was dispensed.? ??Screening/Special Tests:?Fall Risk?Assessment:?Performed ?Screening:?No falls in the past year ?FALLS: Screening for Future Fall Risk?Have you had two or more falls in the past year??No ?Have you had any falls with injury in the past year??No * Follow Up:?2 Months * Images: * Sign off status: Completed true * Provider:?Kathrine Cheema DPM Date:? Generated for Osmar brito/Raheel/Bridgett on:?11/29/2024 05:13 PM EST History and Physical Notes * HPI (History of Present Illness) Category Sub-Category Detail Notes Category Not es Toe pain Location: B/L feet Duration: several years Course: worse Aggravated by: shoes, any pressure Treatments: change in shoes At Risk footcare Pt States Last PCP Visit: Date: 4 Examination Category Sub-Category Detail Notes Category Not es Neurological SENSORY: Neurological exa m demonstrates, reduced light touch sensation, reduced sharp/dull pin prick discrimination , reduced vibration sensation, Pt relates, anesthesia, hyperesthesia, paresthesia, B/L Dermatologic SKIN FINDINGS: Skin exam reveal s Keratotic lesion(s) located at, TA, T5, SUB MTH (s), 5, B/L(s), Heels B/L, , Medial , PIPJ , T4 , T9 Orthopedic FOOTWEAR: worn, non-suppor tive, shoe gear properties exacerbate patient's foot/toe deformity DIGITAL DEFORMITIES: Digital contracture , PIPJ, 2-5 B/L, incompl-reducible to push-up test, no over, nor underlapping, there is evidence of shoe producing skin irritation MUSCLE STRENGTH: 5/5 all groups in a symmetrical fashion, B/L General Examination GENERAL APPEARANCE: Reveals a pleasant, alert, well nourished, well-developed, well hydrated individual, who demonstrates proper attention to hygiene/body habitus, and is in no acute distress, Pt serves as own historian for office visit today FOOT EXAM: Lower Extremity Neurological Exa m performed:: Yes Visual exam of foot performed:: Yes Date: 11/16/2024 ORIENTED: person, place, and t nik Footwear Evaluation Footwear Evaluation performe d:: Yes Ophthalmology Referral DIABETES EYE EXAM Procedure Perform ed:: Yes ?Date of Exam Performed: 07/04/2024 Findings of Diabetic Eye Exam:: no retin opathy Vascular DP PULSES (B): 1/4, B/L PT PULSES (B): 1/4, B/L CAPILLARY FILL TIME: immediate, all digi ts, B/L TEMPERTURE GRADIENT (C): warm to cool, p roximal to distal, B/L TROPHIC CONDITION-TEXTURE/ELASTICITY/TURGOR/HAIR GROWTH (B): normal, B/L EDEMA (C): absent, B/L PIGMENTATION: normal, B/L CQM Exceptions: Hemoglobin A1c not performed Reason:: No r amrita specified
--- OUTSIDE RECORDS SUMMARY | 2024-11-29 17:14 | XMS_ITS | Data Portability ---
Author Organization [employer] [facility] Address [address] [place] [phone] Care Team Providers Care Brass Cleaner Name Role Phone HIM CCA OTHER Assessment Encounter Date Assessment Date Assessment LastModified by Organization Details LastModified Time 03/08/2024 03/08/2024 I provided real -time medical direction via phone for this encounter, and was available for additional phone based assistance as needed. I have reviewed and agree with the Assessment and Plan as documented by the Hydrodynamics Teacher. We discussed the diagnostic uncertainty of home visits and the risk associated with this. In this case the patient and I felt this to be an acceptable and reasonable amount of risk given the benefit of avoiding an ED visit. The patient given the opportunity to ask questions. Advised need to follow-up with PCP as may have other issues going on intra-abdominall y beyond the scope of this service to diagnose /advised if develops CP/severe SOB/turning blue/uncontrolle d n/v/d or black/bloody emesis or stool/ AMS/ syncope/ hi fever to call 911- verbalized understanding of instruction [email or web address] Not available 03/08/2024 16:23:50 Plan of Treatment Reminders Order Date Submit Date Provider Last Modified By Organization Details Last Modified Time Details Appointments None recorded. Lab culture, urine 2023 024 [email or web address] [facility], [address], [place], [address], 4 11:16:43 urinalysis , dipstick 2023 024 [email or web address] 0 [facility], [address] [place] [address], [phone], 15:54:29 glucose, fingerstic k, blood 2023 024 [email or web address] 0 [facility], [address] [place] [address], [phone], 15:55:15 BMP, serum or plasma 2023 024 [email or web address] [facility], [address] [place] [address], [phone], 17:20:49 Referral None recorded. Procedures None recorded. Surgeries None recorded. Imaging None recorded. Medication Orders Pyridium 100 mg tablet 2023 [id number], [address], [place], [phone], 16:23:58 Patient TargetsNo targets recorded. Patient InstructionsNo instructions recorded. Reason for Referral None Reported. Results Created Date Observation Date Name Description Value Unit Range Abnormal Flag Note LastModifiedBy Organization Detail LastModifiedTime 03/08/2003/08/2024 BMP, serum or plasm a GLU 293 Not Available [facility] [address] [place] [address], [phone], 03/08/2024 16:23:59 03/08/2003/08/2024 gluco se, finge rstic k, blood Blood Glucose: mg/dl 313 Not Available [facility] [address] [place] [address], [phone], 03/08/2024 15:54:50 03/08/2003/08/2024 urina lysis , dipst ick Leukocytes neg Not Available [facility] [address] [place] [address], [phone], 03/08/2024 15:52:25 03/08/20 24 03/08/2024 urina lysis , dipst ick Nitrite negati ve Not Available [facility] [address] [place] [address], [phone], 03/08/2024 15:52:25 03/08/20 24 03/08/2024 urina lysis , dipst ick pH 5 Not Available [facility] [address], [address], 03/08/2024 15:52:25 03/08/20 24 03/08/2024 urina lysis , dipst ick Blood neg Not Available [facility] [address], [address], 03/08/2024 15:52:25 03/08/20 24 03/08/2024 urina lysis , dipst ick Specific [place] 1.005 Not Available [facility] [address] [place] [address], [phone], 03/08/2024 15:52:25 03/08/20 24 03/08/2024 urina lysis , dipst ick Ketone neg Not Available [facility] [address], [address], 03/08/2024 15:52:25 03/08/20 24 03/08/2024 urina lysis , dipst ick Glucose 3+ Not Available [facility] [address], [address], 03/08/2024 15:52:25 03/08/20 24 03/08/2024 urina lysis , dipst ick Appearance clear Not Available [facility] [address] [place] [address], [address], 03/08/2024 15:52:25 03/08/20 24 03/08/2024 urina lysis , dipst ick Color yellow Not Available [facility] [address], [address], 03/08/2024 15:52:25 Result Notes None recorded. Medical Equipment None Reported. Allergies Allergen ID Allergen Name Allergen Category Reaction Reaction Severity Criticality Documentation Date Start Date Code Code System Note Provider Name and Address Organization Details Recorded Time 5042 Oxycontin medicatio n Not available Not available Not available 03/08/2024 45218 6 RxNorm Not Available [facility] [employer] 4 13:38:50 5043 shrimp allergeni c extract food Not available Not available Not available 03/08/2024 04678 2 RxNorm Mrecy Castillo MD [address] [facility], [place], [phone], [facility] - [facility] 4 15:52:46 9967 metformin medicatio n Not available Not available Not available 09/02/2024 6809 RxNorm Not Available [employer] [facility] [employer] 4 13:38:50 Medications Name Sig Start Date Stop Date Status Note LastModified by Organization Details LastModified Time cyclobenzapr ine 10 mg tablet TAKE ONE TABLET BY MOUTH AT BEDTIME NEEDED FOR MUSCLE SPASMS active Not Available Not Available No t Available amoxicillin 500 mg capsule TAKE 4 CAPSULES BY MOUTH 1 HOUR BEFORE DENTAL APPOINTMENT active Not Available Not Available Not Available acetaminophe n 325 mg tablet TAKE ONE TABLET FOUR TIMES DAILY NEEDED FOR PAIN active Not Available Not Available No t Available repaglinide 2 mg tablet TAKE ONE TABLET BY MOUTH THREE TIMES DAILY 30 MINUTES BEFORE A MEAL OR SNACK active Not Available Not Available No t Available metoprolol succinate ER 200 mg tablet,exten ded release 24 hr TAKE ONE TABLET EVERY DAY active Not Available Not Available No t Available tramadol 50 mg tablet TAKE ONE TABLET TWICE DAILY NEEDED FOR PAIN active Not Available Not Available No t Available phenazopyrid ine 100 mg tablet TAKE 1 TABLET BY MOUTH THREE TIMES DAILY FOR 3 DAYS active Not Available Not Available N ot Available cephalexin 500 mg capsule TAKE ONE CAPSULE FOUR TIMES DAILY UNTIL FINISHED active Not Available Not Available No t Available lisinopril 10 mg tablet TAKE ONE TABLET DAILY active Not Available Not Available No t Available docusate sodium 100 mg capsule TAKE ONE CAPSULE EVERY DAY active Not Available Not Available No t Available omeprazole 20 mg capsule,amy yed release TAKE ONE CAPSULE BY MOUTH EVERY MORNING ONE HOUR BEFORE A MEAL active Not Available Not Available No t Available ammonium lactate 12 % topical cream APPLY TO FEET TWICE DAILY active Not Available Not Available No t Available celecoxib 100 mg capsule TAKE ONE CAPSULE EVERY DAY active Not Available Not Available No t Available hydroxyzine HCl 10 mg tablet TAKE ONE TABLET DAILY NEEDED FOR HIVES active Not Available Not Available No t Available piroxicam 20 mg capsule active Not Available Not Available N ot Available ezetimibe 10 mg tablet TAKE ONE TABLET DAILY active Not Available Not Available No t Available rosuvastatin 5 mg tablet TAKE ONE TABLET EVERY DAY active Not Available Not Available No t Available Flovent HFA 110 mcg/actuatio n aerosol inhaler INHALE 1 PUFF EVERY TWELVE HOURS. RINSE MOUTH AFTER USE active Not Available Not Available No t Available Januvia 100 mg tablet TAKE ONE TABLET DAILY active Not Available Not Available No t Available cholecalcife rol (vitamin D3) 50 mcg (2,000 unit) capsule TAKE ONE CAPSULE EVERY DAY active Not Available Not Available No t Available Eliquis 5 mg tablet TAKE ONE TABLET TWICE DAILY active Not Available Not Available Not Available Farxiga 10 mg tablet TAKE ONE TABLET EVERY MORNING active Not Available Not Available No t Available Vitals Date Recorded Body weight Body temperature Oxygen saturation Oxygen saturation in Arterial blood by Pulse oximetry Respiratory rate Body height Heart rate Systolic blood pressure Diastolic blood pressure Provider Name and Address Organization Details Last Updated DateTime 4 44427.1 44 g 98.2 [degF] 96 % 96 % 18 /min 149.86 cm 72 /min 146 mm[Hg] 81 mm[Hg] Not Available [employer] 4 15:50:30 Date Recorded Oxygen saturation Oxygen saturation in Arterial blood by Pulse oximetry Body temperature Heart rate Respiratory rate Systolic blood pressure Diastolic blood pressure Provider Name and Address Organization Details Last Updated DateTime 4 98 % 98 % 98.3 [degF] 106 /min 20 /min 180 mm[Hg] 92 mm[Hg] Not Available [employer] 4 15:59:56 Social History None recorded. Functional Status None recorded. Mental Status None recorded. Family History Nothing Reported. Medical History No medical history recorded. Gynecological HistoryNo gynecological history recorded. Obstetrics History GPAL:G 0 P 0 0 0 0 Past Encounters Encounter ID Performer Location Encounter Start Date Encounter Closed Date Diagnosis/Indication Diagnosis SNOMED-CT Code Diagnosis ICD10 Code Diagnosis Note [id number] Mercy Castillo MD [facility] [address] [place] [address] 03/08/2024 15:50:25 03/09/2024 11:54:56 Urinary symptoms 737391792 R39.9 No evidence of UTI based on dip she has glycosuria which could be causing the urgency and frequency- bmp ordered- nl renal function/ stable H & H.Will send urine culture and will call if UC positive for infection. Pat request Rx to go to [place] [id number] in [place]- made aware of Good RX card to defray cost - also have otc version- advised will turn urine bright orangey red- can stain underwear/ advised wearing pad for 3 -4 days PC team: Had bagels and grapes today- needs dietary consult re lower glycemic index foods- medic attempted to explain [id number] LYUDMILA DAMIAN MD [facility] [address] [place] [phone] 09/02/2024 15:51:56 09/02/2024 21:41:56 Pain in right hip joint [id number] 69532 M25.551 Evaluation in the field was performed by my cloth spreader colleague, as noted above, I provided real-time direction and supervisio n for this visit. The evaluation revealed a 69-year-ol d female with a past medical history of atrial fibrillati on on apixaban, type 2 diabetes mellitus, myocardial infarction , osteoarthr itis, depression , hypertensi on, and coronary artery disease, presenting with complaints of severe right hip pain. The patient reports that she has been in pain almost all day and is unsure of what happened. She states that she was sitting down and then, upon getting up, experience d pain in her right hip and lower back. The patient denies any falls or other trauma to the area. She mentions having chronic back pain, but notes that it is never like this. She denies fever, chest pain, shortness of breath, nausea, vomiting, diarrhea, or urinary tract infection symptoms. The patient was unable to ambulate to open the door; she had a lockbox with a gonzalez, allowing the paramedics to enter her house. Vital signs show significan t elevated blood pressure and tachycardi a, most likely due to pain. The patient is afebrile. On exam, the patient is unable to straighten her right leg, preventing assessment for length discrepanc y. Allergies were reviewed.I mpression: Severe right hip pain Plan:-The patient has no history of fall or trauma, making a fracture unlikely. She is unable to straighten her right leg, preventing assessment for length discrepanc y.Femoroac etabular impingemen t is a possible diagnosis; abnormal hip joint anatomy may be causing the bones to rub together, leading to pain, stiffness, and a catching sensation, especially with movements like bending, as she reported.A labral tear is another potential cause, which can result in pain, clicking, or a locked feeling in the hip.-The patient is experienci ng severe pain and is unable to ambulate. She is currently on Eloquest so can not receive Ketorolac and Flexeril. The patient agrees to go to the ED via 911 for further evaluation and treatment. -An expect was called at [facility] Primary care, consider__ _ Dispositio n:We discussed the situation and I recommende d referral to the emergency department . An expect was called at [facility] Health Concerns Section Related Observation LastModified by Organization Detai ls LastModified Time None Recorded Concern Status LastModified by Organization Details LastModified Time None Recorded Advance Directives Directive None Recorded Payers Encounter Date Sequence Insurance Name Policy Number Policy Meza Covered Member ID Meza Member ID Guarantor Name 03/08/2024 1 [facility] - DOS ON OR AFTER 2023 - DUAL ELIGIBLE - SENIOR LIVING OPTIONS AND ONE CARE (MEDICARE REPLACEMENT/ADV ANTAGE - HMO) Meena Hidalgo [id number] Meena Hidalgo 09/02/2024 1 [facility] - DOS ON OR AFTER 2023 - DUAL ELIGIBLE - SENIOR LIVING OPTIONS AND ONE CARE (MEDICARE REPLACEMENT/ADV ANTAGE - HMO) Meena Hidalgo [id number] Meena Hidalgo Notes Date Note Type Note Provider Name and Address Organization Details Recorded Time 03/08/2024 text/html [facility] Nurse Triage Notes (Kaden Herzog): Reason For Request: Pt reporting abdominal pain (underneath belly button) and mentions blood in the urine>suspected UTI Patient Reports: Painful urination; Painful urination with or without fever; Inability to fully empty bladder Denies: Lower back pain either unilateral or bilateral, unable to void, painful urination -hematuria Frequent and increased urination with flank pain Chief Complaints: UTI/Pyelonephritis , Abdominal Pain Allergies: Unknown Comments: Obiee Report Developer verified the member's name//address and phone number. Education provided on the response time and the member was advised to monitor reported s/s and seek emergency treatment if needed. Member reports feeling unwell with abdominal discomfort and UTI symptoms - Increased frequency, urgency and painful urination - Denies fever - Urine is yellow with cloudiness and odor - Blood noted - S/S for 3 days. Wellness check. Hydrodynamics Teacher POC Test Results from [facility] - ALS Urine Dipstick (1) [17:03] Urine leukocytes: - CLAY Urine nitrites: - NIT Urine urobilinogen: 0.2 URO Urine protein: - PRO Urine pH: 5.0 pH Urine blood: - BLO Urine specific gravity: 1.005 SG Urine ketones: - KET Urine bilirubin: - EMILY Urine glucose: 500 GLU iSTAT Chem8+ (1) [17:03] Na: 137 mEq/L K: 4.9 mEq/L Cl: 100 mEq/L iCa: 1.19 mmol/L TCO2: 30 mmol/L Glu: 293 mg/dL BUN: 18 mg/dL Crea: 0.6 mg/dL Hct: 44 % Hb: 15.0 g/dL A .................. .................. .................. .................. .................. .................. .................. ............... Hydrodynamics Teacher Note From [facility]: Sent to a call for a pt complaining of abd pain and hematuria. SC8 arrives on scene, pt is alert and oriented, airway is patent. Pt complains of hypogastric abd pain (described as constant stabbing, 5/10), intermittent blood on toilet paper when urinating (unknown if urinary or vaginal), and intermittent dysuria since Sat 03/06. Pt also complains of baseline urinary urgency, urinary incontinence, abd distention, and back pain (takes celebrex prn). Pt denies oleary, dizziness, cp, sob, n/v/d, hematuria, black/bloody stool, fever, chills, or loc. Pt states she has history of diabetes, CHF, and FL. Pt states she takes Farxiga, Januvia, and Glipizide. Pt also takes Eliquis. Pt reports allergy to Oxycontin, causing hallucinations. BP:146/81, P:72, RR:18, SpO2:96% RA, T:98.2, B; Head: unremarkable; Lung sounds: clear bilaterally; Abdomen: soft, non-tender, distention; Back: no CVA tenderness; Extremities: no peripheral edema; Skin: pink, warm, dry; Urine sample obtained: yellow, clear, concentrated; Urine dip results: uploaded to [employer]. [facility] consulted and orders POC bloodwork and urine culture to be sent to [facility]. Venous blood draw performed; Istat Chem8+ results: uploaded to [employer]. [facility] sends script to pt's pharmacy for pyridium. Pt advised cost is not covered by insurance, so she can use good RX to offset cost, or use an OTC version. Pt advised that medication will cause orange/red colored urine and cause staining. Pt's diet today questioned. Pt reports she ate a bagel w/cream cheese and coffee today at approx 11am, then also had some grapes prior to visit. Pt educated on lower glycemic index dietary options, to which pt states she understands. Pt advised to follow up with PCP for visit to further evaluate pt's symptoms. Red flags discussed. Pt has no further questions. .................. .................. .................. .................. .................. .................. .................. ............... Disposition: Fulfilled Mercy Castillo MD [address] [facility], [place], [phone], [place] [facility] [employer] 03/08/2024 17:20:55 09/02/2024 text/html HPI: Mbr called in to the [facility], reports R lower back/hip pain since last night while positioning self from sitting to lying down. Mbr denies fall or injury prior to onset of pain. Mbr reports difficulty bearing weight to R leg, using cane to ambulate, increased pain with ROM, rates pain level 12/10. Mbr reports taking celebrex and tylenol w/o effect, using heat and ice, denies this pain in the past and states it feels like something is stuck. Mbr denies fever/chills, new loss of bladder/bowel control, deformity, or pain to other areas. Mbr's PMH includes OA. Mbr declines going to the ED at this time and request for [facility] to come out. Mbr was advised referral would be submitted and for new/worsening sx to go to ED. .................. .................. .................. .................. .................. .................. .................. ............... [facility] Nurse Triage Notes (Mayito Perez): Chief Complaints: Back pain PMH: Arrhythmias (e.g., Atrial Fibrillation), Diabetes Mellitus Type 2, Myocardial Infarction, Osteoarthritis, Depression, Hypertension, Coronary Artery Disease, Hyperlipidemia Comments: HPI reviewed by this RN, no further information needed to process visit -Kareem Perez RN .................. .................. .................. .................. .................. .................. .................. ............... Hydrodynamics Teacher Note From Arjun Hubbard: Dispatched to the call address for the female with hip pain. Pt states she has been in pain almost all day. She is not sure what happened, she was sitting down and then went to get up and now has pain in her right hip/lower back. Pt denies any falls or other trauma to the area. She states she has chronic back pain but it is never like this. She denies fevers, CP, SOB, n/v/d or UTI s/s.Pt was unable to ambulate to open the door, she had a lock box with a gonzalez in it that she was able to communicate the pass code so I could gain entry. Pt was found laying on couch, CAOx4, airway open and patent, breathing non labored, able to speak in full sentences, -JVD, -HEENT, skin PWD with good turgor, abd soft non tender/distended, pupils PERRL, +CMSx4, lung sounds CTA, afebrile, mucous membranes pink and moist, -edema, [facility] consulted. 911 called on behalf of the Pt, [place] transported Pt to [facility]. ALL times are approx. .................. .................. .................. .................. .................. .................. .................. ............... [facility] Consulted: Lyudmila Damian .................. .................. .................. .................. .................. .................. .................. ............... Disposition: Fulfilled LYUDMILA DAMIAN MD [address] [facility] [facility], [place], [phone], [employer] 09/02/2024 19:04:26 OBGyn Episode No OBEpisode recorded.
== END 2024-11-29 14:56 | disposition home or self-care (01) ==
PROVIDERS: PCP Internal Medicine; Visit Provider Obstetrics & Gynecology
DX: N95.0 Postmenopausal bleeding (principal); R93.41 Abnormal radiologic findings on diagnostic imaging of renal pelvis, ureter, or bladder
CPT/HCPCS: 58100; 99203

== ENCOUNTER 2024-12-28 12:31 | Outpatient (AMB) | payer OTHER, SELFPAY ==
--- NOTE | 2024-12-28 12:37 | MHC.OFFVIS ---
Intake Visit Reasons: EMB results Engineering Assistant: Engineering Assistant Present (Rupa) Accompanied by: Self / Same As Patient Allergies atorvastatin [From LIPITOR] Adverse Reaction (Intermediate, Verified 12/28/24 12:42) STOMACH ACHE oxycodone [From OXYCONTIN] Adverse Reaction (Intermediate, Verified 12/28/24 12:42) SENSORY HALLUCINATIONS sulfamethoxazole [From Bactrim] Adverse Reaction (Intermediate, Verified 12/28/24 12:42) chills vitamin d Adverse Reaction (Intermediate, Uncoded 10/15/24 09:34) Hallucinations HPI Comments Details: The patient is presenting after endometrial biopsy. The patient is still having continuous daily vaginal bleeding, no feverishness chills or abdominal pain. The endometrial biopsy pathology report showed the following: Endometrium, biopsy: - Superficial strips and fragments of inactive/atrophic endometrium with hemosiderin deposition; no atypia or hyperplasia identified. - Fragments of endocervical and squamous epithelium within normal limits; mucoinflammatory material; no atypia identified Last co testing in 07/24 was negative [facility] Medical History Metformin adverse reaction Urinary incontinence, mixed Oropharyngeal dysphagia COVID-19 vaccination refused Refused influenza vaccine Diabetes mellitus with hyperglycemia, without long-term current use of insulin Anxiety as acute reaction to gross stress Mild intermittent asthma in adult without complication OAB (overactive bladder) Diabetes mellitus with microalbuminuria, without long-term current use of insulin Osteoarthritis, knee History of depression Osteopenia after menopause Overweight Varicose veins of right lower extremity History of ST elevation myocardial infarction (STEMI) Coronary artery disease involving [place] coronary artery Hypertension Refused pneumococcal vaccination Dyslipidemia Surgical History History of section Hx of myomectomy S/P left rotator cuff repair History of heart artery stent Family History Father No problems noted. Mother No problems noted. 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 Current occupational exposures/hazards: No Cognitive needs: No Hearing needs: No Vision needs: Yes Female Reproductive History Menstrual Age of Menarche: 12 Review of Systems Const All systems reviewed & are unremarkable except as noted in HPI and below Reports as per HPI and Reports no additional complaints GI Reports no additional complaints Reports no additional complaints Assessment & Plan Assessment & Plan (1) Postmenopausal bleeding: Comment: Recurrent Code(s): N95.0 - Postmenopausal bleeding Category: Medical Plan: Discussed with the patient the results of the endometrial biopsy showing inactive endometrium. Discussed with the patient the sensitivity, specificity, positive and negative predictive value, of endometrial biopsy in detecting endometrial pathology including but not limited to endometrial hyperplasia, cancer and other pathology; since the patient is having recurrent vaginal bleeding bleeding , recommended to the patient that the next step is to proceed with a diagnostic hysteroscopy/D&C for further endometrial sampling evaluation to rule out endometrial pathology. Given that the patient has a complex medical history on [facility] will refer to [facility]. All questions answered and the patient verbalized understanding and agreed with the plan. Instructed the patient to call our office back in case a referral appointment is not scheduled, missed or canceled so that we will assist on rescheduling another appointment, the patient verbalized understanding agreed with the plan. Coding Level of Care Code Est Pt Level 3 (45565) Diagnoses Postmenopausal bleeding N95.0
--- OUTSIDE RECORDS SUMMARY | 2024-12-28 15:11 | XMS_ITS | Encounter Summary ---
Author Organization [employer] Address [address] [facility] 7t [place] [address] Care Team Providers Care Wardrobe Attendant Name Role Phone Unavailable Primary Care Provider Unavailabl e Encounter Details Date Type Department Care Team (Late st Contact Info) Description 12/21/2024 9:00 AM EST Telemedicine [facility] PEDS [address] [place] [address] MD [address] [place] [address] Encounter to establish care (Primary Dx); Chronic diastolic heart failure (CMS/HCC); Paroxysmal atrial fibrillation (CMS/HCC); Type 2 diabetes mellitus with diabetic peripheral angiopathy without gangrene, without long-term current use of insulin (CMS/HCC) Social History Tobacco Use Types Packs/Day Years Used Date Smoking Tobacco: Never Passive Smoke Exposure: Never Smokeless Tobacco: Never Alcohol Use Standard Drinks/Week Comments Never 0 (1 standard drink = 0.6 oz pur e alcohol) Depression Answer Date Recorded Patient Health Questionnaire-9 Score 2 12/21/2024 Patient Health Questionnaire-9 Score 2 12/21/2024 Last PHQ-9: Questionnaire Data Not on file 0 12/21/2024 Housing Stability Answer Date Recorded What is your housing situation today? I have malcolm gama 12/21/[address] you li ve. Do you have problems with any of the following? None of the above 12/21/2024 Food Insecurity Answer Date Recorded Within the past 12 months, y ou worried that your food would run out before you got money to buy more: Never True 12/21/2024 Within the past 12 months,th e food you bought just didn't last and you didn't have enough money to get more: Never True Transportation Answer Date Recorded In the past 12 months, has l ack of transportation kept you from medical appts, meetings, work or from getting things needed for daily living? No 12/21/2024 Utilities Answer Date Recorded In the past 12 months, has t he electric, gas, oil or water company threatened to shut off services in your home? No 12/21/2024 Depression Answer Date Recorded Patient Health Questionnaire-2 Score 2 12/21/2024 Internet Access Answer Date Recorded Internet Access Q1 Yes 12/21/2024 Internet Access Q2 Not on file 12/21/2024 Comments Unknown Sex and Gender Information Value Date Recorded Sex Assigned at Female 09/02/2022 10:20 AM EDT Legal Sex Female 10:20 AM EDT Gender Identity Female 09/02/2022 10:20 AM EDT Sexual Orientation Straight 09/02/2022 10 :20 AM EDT documented as of this encounter Progress Notes * Hernan Aaron MD - 12/21/2024 9:00 AM EST Subjective Patient ID: Meena Hidalgo is a 69 y.o. female who presents for No chief complaint on file.. HPI Patient was scheduled for a televisit to establish medical care Review of Systems Constitutional: Negative for chills, fatigue and fever. Respiratory: Negative for cough, choking and stridor. Cardiovascular: Negative for chest pain and palpitations. Gastrointestinal: Negative for abdominal distention, blood in stool and constipation. Objective Physical Exam Neurological: General: No focal deficit present. Mental Status: She is oriented to person, place, and time. Psychiatric: Mood and Affect: Mood normal. Behavior: Behavior normal. Assessment/Plan Problem List Items Addressed This Visit Encounter to establish care - Primary Last pcp visit 1 year at [facility] ER: November due to vaginal bleeding, back pain [facility]: 6 years ago due to [place] s/p stent x2 Pmhx: DM, HTN, Cholesterol, [place] s/p stent x2, CHF, atrial fibrillation Pshx: rotary cuff left arm 2004, csec , hand CTS right 2004, right trigger finger 2009 Meds: as above Chronic diastolic heart failure (CMS/HCC) Followed by cardiology, no recent exacerbation or hospitalization Paroxysmal atrial fibrillation (CMS/HCC) On leiquis, but she refers has been avoiding it due to hx of vaginal bleeding, risk were discussed with patient including having a stroke Type 2 diabetes mellitus with diabetic peripheral angiopathy without gangrene, without long-term current use of insulin (CMS/HCC) On and documented in this encounter Miscellaneous Notes * Assessment & Plan Note - Hernan Aaron MD - 12/21/2024 12:28 PM ESTAssociated Problem(s): Type 2 diabetes mellitus with diabetic peripheral angiopathy without gangrene, without long-term current use of insulin (CMS/HCC) On and * Assessment & Plan Note - Hernan Aaron MD - 12/21/2024 12:28 PM ESTAssociated Problem(s): Paroxysmal atrial fibrillation ([facility]/HCC) On , but she refers has been avoiding it due to hx of vaginal bleeding, risk were discussed with patient including having a stroke * Assessment & Plan Note - Hernan Aaron MD - 12/21/2024 12:17 PM ESTAssociated Problem(s): Chronic diastolic heart failure ([facility]/HCC) Followed by cardiology, no recent exacerbation or hospitalization * Assessment & Plan Note - Hernan Aaron MD - 12/21/2024 9:19 AM ESTAssociated Problem(s): Encounter to establish care Last pcp visit 1 year at [facility] ER: November due to vaginal bleeding, back pain [facility]: 6 years ago due to [place] s/p stent x2 Pmhx: DM, HTN, Cholesterol, [place] s/p stent x2, CHF, atrial fibrillation Pshx: rotary cuff left arm 2004, csec , hand CTS right 2004, right trigger finger 2009 Meds: as above documented in this encounter Plan of Treatment Upcoming Encounters Date Type Department Care Team (Late st Contact Info) Description 01/11/2025 11:00 AM EDT Office Visit [facility] ADULT DENTAL [address] [place] [address] Neha Felder DMD 01/21/2025 9:30 AM EDT Office Visit [facility] MED & PEDS [address] [place] [address] Hernan Urbina MD [address] [place] [address] 02/14/2025 10:00 AM EDT Office Visit [facility] ADULT DENTAL [address] [place] [address] Domingo Spence documented as of this encounter Visit Diagnoses Diagnosis Encounter to establish care- Primary Chronic diastolic heart failure (CMS/HCC) Chronic diastolic heart failure Paroxysmal atrial fibrillation (CMS/HCC) Atrial fibrillation Type 2 diabetes mellitus with diabetic peripheral angiopathy without gangrene, without long-term current use of insulin ([facility]/HCC) documented in this encounter Additional Health Concerns Assessment Noted Time PHQ-9 Depression Total Score: 2 12/21/19 25 8:57 AM EST documented as of this encounter
--- OUTSIDE RECORDS SUMMARY | 2024-12-28 15:11 | XMS_ITS | Encounter Summary ---
Author Organization [employer] [facility] Address [address] [place] [address] 7 [place] [address] Care Team Providers Care Plug And Mold Finisher Name Role Phone Unavailable Primary Care Provider Unavailabl e Encounter Details Date Type Department Care Team (Latest Contact Info) Description 02/02/2021 Abstract [facility] CONVERSIONS Dental, Provider, DDS Social History [...] Description 01/11/2025 11:00 AM EDT Office Visit [facility] ADULT DENTAL [address] [place] [address] Neha Felder DMD 01/21/2025 9:30 AM EDT Office Visit [facility] MED & PEDS [address] [place] [address] Hernan Urbina MD [address] [place] [address] 02/14/2025 10:00 AM EDT Office Visit [facility] ADULT DENTAL [address] [place] [address] Domingo Spence documented as of this encounter Visit Diagnoses Not on filedocumented in this encounter
--- OUTSIDE RECORDS SUMMARY | 2024-12-28 15:11 | XMS_ITS | Encounter Summary ---
Author Organization [employer] [facility] Address [address] [place] [address] [address] [place] [address] Care Team Providers Care Fha Underwriter Name Role Phone Unavailable Primary Care Provider Unavailabl e Encounter Details Date Type Department Care Team (Latest Contact Info) Description 12/09/2024 Travel Social History Tobacco Use Types Packs/Day [...] Description 01/11/2025 11:00 AM EDT Office Visit [facility] ADULT DENTAL [address] [place] [address] Neha Felder DMD 01/21/2025 9:30 AM EDT Office Visit [facility] MED & PEDS [address] [place] [address] Hernan Urbina MD [address] [place] [address] 02/14/2025 10:00 AM EDT Office Visit [facility] ADULT DENTAL [address] [place] [address] Domingo Spence documented as of this encounter Visit Diagnoses Not on filedocumented in this encounter
--- OUTSIDE RECORDS SUMMARY | 2024-12-28 15:11 | XMS_ITS | Encounter Summary ---
Author Organization [employer] [facility] Address [address] 7[address] [place] [address] Care Team Providers Care Buildings And Grounds Coordinator Name Role Phone Unavailable Primary Care Provider Unavailabl e Encounter Details Date Type Department Care Team (Latest Contact Info) Description 12/21/2024 Travel Social History Tobacco Use Types Packs/Day [...] is your housing situation today? I have malclom gama 12/21/[address] you [...] Description 01/11/2025 11:00 AM EDT Office Visit [facility] ADULT DENTAL [address] [place] [address] Neha Felder DMD 01/21/2025 9:30 AM EDT Office Visit [facility] MED & PEDS [address] [place], [place] [phone] Hernan Urbina MD [address] [place] [address] 02/14/2025 10:00 AM EDT Office Visit [facility] ADULT DENTAL [address] [place] [address] Domingo Spence documented as of this encounter Visit Diagnoses Not on filedocumented in this encounter Additional Health Concerns Assessment Noted Time PHQ-9 Depression Total Score: 2 12/21/19 25 8:57 AM EST documented as of this encounter
--- OUTSIDE RECORDS SUMMARY | 2024-12-28 15:11 | XMS_ITS | Clinical Summary ---
Author Organization [employer] Address [address] 7[address] [place] [address] Care Team Providers Care Lead Ramp Agent Name Role Phone Unavailable Primary Care Provider Unavailabl e Allergies Active Allergy Reactions Criticality Noted Date Comments Oxycodone 03/03/2017 Shrimp Extract 03/15/2016 Vitamin D (Calciferol) 12/21/2024 Medications glucose blood (FREESTYLE LITE) test strip 07/16/20 18 Active dapagliflozin (Farxiga) 10 MG Take 1 tablet by mouth at bed time. 03/18/20 19 Active apixaban (Eliquis) 5 MG tablet Take 1 tablet by mouth every 12 (twelve) hours. Active rosuvastatin (Crestor) 10 MG tablet Take 1 tablet by mouth in the morning. Active celecoxib (CeleBREX) 100 MG capsule Take 100 mg by mouth in the morning. 01/27/20 24 Active metoprolol succinate XL (Toprol-XL) 200 MG 24 hr tablet Take 200 mg by mouth in the morning. 12/26/19 24 Active SITagliptin (Januvia) 100 MG tablet Take 100 mg by mouth Once per day. Active repaglinide (Prandin) 2 MG tablet Take 2 mg by mouth before breakfast, before lunch, and before evening meal. Active hydrOXYzine HCl (Atarax) 10 MG tablet Take 10 mg by mouth every 6 (six) hours if needed for itching. Active ezetimibe (Zetia) 10 MG tablet Take 10 mg by mouth Once per day. Active lisinopril 10 MG tablet Take 10 mg by mouth Once per day. Active Ventolin HFA 108 (90 Base) MCG/ACT inhaler Inhale 1 puff every 4 (four) hours if needed. 08/27/20 24 Active fluticasone (Flovent HFA) 110 MCG/ACT inhaler Inhale 1 puff in the morning and at bedtime. Active atorvastatin (Lipitor) 80 MG tablet Take 1 tablet by mouth at bed time. 03/17/20 19 025 Discontinued metoprolol tartrate (Lopressor) 50 MG tablet take 1 tablet by oral route twice daily 03/18/20 19 025 Discontinued( erapy completed) acetaminophen (Tylenol) 325 MG tablet Take 1 tablet by mouth every 4 (four) hours. 03/17/20 025 Discontinued mirtazapine (Remeron) 7.5 MG tablet Take 1 tablet by mouth at bed time. 03/31/20 025 Discontinued( erapy completed) ticagrelor (Brilinta) 90 MG tablet Take 1 tablet by mouth every 12 (twelve) hours. 04/08/20 19 025 Discontinued( erapy completed) cholecalcifer ol (Vitamin D-3) 50 MCG (2000 UT) capsule 025 Discontinued( erapy completed) amoxicillin (Amoxil) 500 MG capsule take 4 capsules by oral route one hour before the dental appointment 11/08/19 025 Discontinued acetaminophen (Tylenol) 500 MG tablet Take 1 tablet by mouth every 8 (eight) hours. 07/26/20 22 025 Discontinued amoxicillin (Amoxil) 500 MG capsule Take 4 capsules one hour before the dental appointment 12 capsule 05/21/20 23 025 Discontinued( erapy completed) amoxicillin (Amoxil) 500 MG capsule Take 4 capsules one hour before the dental appointment. 16 capsule 06/16/20 24 025 Discontinued amoxicillin (Amoxil) 500 MG capsule Take 4 tabs (2 grams) 1 hour prior to dental procedure 12 capsule 3 06/16/20 24 025 Discontinued amoxicillin (Amoxil) 500 MG capsule Take 4 tabs (2 grams) 1 hour prior to dental procedure 16 capsule 08/12/20 24 025 Discontinued amoxicillin (Amoxil) 500 MG capsule Take 4 tabs (2 grams) 1 hour prior to dental procedure 16 capsule 3 11/16/19 25 025 Discontinued Active Problems Problem Noted Date Diagnosed Date Encounter to establish care 12/21/2024 Assessment & Plan (12/21/2024 9:19 AM EST): Last pcp visit 1 year at [facility] ER: November due to vaginal bleeding, back pain [facility]: 6 years ago due to [place] s/p stent x2 Pmhx: DM, HTN, Cholesterol, [place] s/p stent x2, CHF, atrial fibrillation Pshx: rotary cuff left arm 2004, csec , hand CTS right 2004, right trigger finger 2009 Meds: as above Chronic diastolic heart failure 12/21/2024 Assessment & Plan (12/21/2024 12:17 PM EST): Followed by cardiology, no recent exacerbation or hospitalization Paroxysmal atrial fibrillation 12/21/2024 Assessment & Plan (12/21/2024 12:28 PM EST): On leiquis, but she refers has been avoiding it due to hx of vaginal bleeding, risk were discussed with patient including having a stroke Type 2 diabetes mellitus wit h diabetic peripheral angiopathy without gangrene, without long-term current use of insulin 12/21/2024 Assessment & Plan (12/21/2024 12:28 PM EST): On and Encounters Date Type Department Care Team Description 12/21/2024 9:00 AM EST Telemedicine [facility] MED & PEDS [address] [place] [address] Hernan Urbina MD Encounter to establish care (Primary Dx); Chronic diastolic heart failure (CMS/HCC); Paroxysmal atrial fibrillation (CMS/HCC); Type 2 diabetes mellitus with diabetic peripheral angiopathy without gangrene, without long-term current use of insulin (CMS/HCC) 12/21/2024 Travel 12/14/2024 Travel 12/09/2024 Travel 11/30/2024 Telephone [facility] ADULT DENTAL [address] [place] [address] Neha Felder DMD 11/17/2024 1:00 PM EST Office Visit [facility] AD[facility] [address] [place] [address] Neha Felder DMD 11/17/2024 Telephone [facility] PED[facility] [address] [place] [address] Hernan Urbina MD Appointment 11/17/2024 Travel 11/16/2024 Orders Only [facility] AD[facility] [address] [place] [address] Neha Felder, DMD 11/15/2024 Telephone [facility] ADULT DENTAL [address] [place] [address] Neha Felder, DMD 11/10/2024 Travel 11/01/2024 Telephone [facility] MEDICINE [address] [place] [address] Marcos Friedman MD New patient appt. 11/01/2024 Telephone [facility] [address] [place] [address] Marcos Friedman MD Appointment Request 10/12/2024 9:00 AM EST Office Visit [facility] ADULT DENT[facility] [address] [place] [address] Neha Felder, DMD 10/05/2024 Travel from Last 3 Months Family History Medical History Relation Name Comments Heart disease Father Diabetes Mother Hyperlipidemia Mother Cancer Neg Hx Relation Name Status Comments Father Mother Social History Tobacco Use Types Packs/Day Years [...] Description 01/11/2025 11:00 AM EDT Office Visit [facility] ADULT D[facility] [address] [place] [address] Neha Felder DMD 01/21/2025 9:30 AM EDT Office Visit [facility] MED [facility] PED[facility] [address] [place] [address] Hernan Urbina MD [address] [place] [address] 02/14/2025 10:00 AM EDT Office Visit [facility] ADULT D[facility] [address] [place] [address] Domingo Spence Health Maintenance Due Date Last Done Comments CT Colonography 1956 Colonoscopy 1956 Colorectal Cancer Screening 1956 Diabetes: Hemoglobin A1C 1956 FIT DNA/Cologuard 1956 FIT 1956 FOBT 1956 Lipid Panel 1956 Sigmoidoscopy 1956 Diabetes: Foot Exam 01/31/1966 Eye Exam 01/31/1966 Alcohol/Substance Use Screening 1968 Hepatitis C Screening 01/31/1974 Diabetes: Urine Protein Screening 01/31/1975 Hepatitis A Vaccines (1 of 2 - Risk 2-dose series) 01/31/1975 Pneumococcal Vaccine: 50+ Years (1 of 2 - PCV) 01/31/1975 Hepatitis B Vaccines (1 of 3 - Risk 3-dose series) 2016 RSV Patients and Patients Aged 60 years or older (1 - Risk 60-74 years 1-dose series) 2016 Zoster Vaccines (2 of 3) 07/25/2017 05/30/2017 Mammogram 01/26/2021 01/26/2019, 07/27/2018, 07/21/2018 COVID-19 Vaccine (1 - 2023-2 5 season) 2024 Influenza Vaccine (#1) 2024 Dental Oral Exam 02/12/2025 08/13/2024, 02/11/2024, 04/16/2023 Dental Prophylaxis 02/12/2025 08/13/2024, 02/11/2024, 04/16/2023 Dental X-Ray: Bitewings 08/14/2025 08/13/20 24, 06/17/2024, 04/16/2023 Depression Screening 12/21/2025 12/21/2024, 12/21/2024 SDOH Screening 12/21/2025 12/21/2024 Tobacco Screening 12/21/2025 12/21/2024 Dental X-Ray: Full Mouth 04/26/2026 04/25/2023 DTaP/Tdap/Td [...] Procedure Name Priority Date/Time Associated Diagnosis Comments CASE PRESENTATION, DETAILED AND EXTENSIVE TREATMENT PLANNING Routine 11/17/2024 1:00 PM EST 9 CROWN PREP Routine 11/17/2024 1:00 PM EST 8 CROWN PREP Routine 11/17/2024 1:00 PM EST CASE PRESENTATION, DETAILED AND EXTENSIVE TREATMENT PLANNING Routine 10/12/2024 9:00 AM EST 9 CROWN PREP Routine 10/12/2024 9:00 AM EST 8 CROWN PREP Routine 10/12/2024 9:00 AM EST 3 O RESIN-BASED COMPOSITE - 1 SURF, POSTERIOR Routine 10/12/2024 9:00 AM EST Full [...] Most Recently Relevant to Health Maintenance Insurance [facility] [place] [address] D[place] [facility] [place] [address] [place] [address] [facility] [place] [address]
--- OUTSIDE RECORDS SUMMARY | 2024-12-28 15:11 | XMS_ITS | Encounter Summary ---
Author Organization [facility] [facility] Address [address] 7[address] [place] [address] Care Team Providers Care Electronic Field Service Engineer Name Role Phone Unavailable Primary Care Provider Unavailabl e Encounter Details Date Type Department Care Team (Late st Contact Info) Description 11/15/[address] [facility] ADULT DENTAL [address] [place], [place] [phone] Neha Felder DMD Social History Tobacco Use Types Packs/Day Years [...] Description 01/11/2025 11:00 AM EDT Office Visit [facility] ADULT DENTAL [address] [place], [place] [phone] Neha Felder DMD 01/21/2025 9:30 AM EDT Office Visit [facility] MED & PEDS [address] [place], [place] [phone] Hernan Urbina MD [address] [place] [address] 02/14/2025 10:00 AM EDT Office Visit [facility] ADULT DENTAL [address] [place] [address] Domingo Spence documented as of this encounter Visit Diagnoses Not on filedocumented in this encounter
--- OUTSIDE RECORDS SUMMARY | 2024-12-28 15:11 | XMS_ITS | Encounter Summary ---
Author Organization [employer] [facility] Address [address] [place] [address] [address] [place] [address] Care Team Providers Care Cardiac Technician Name Role Phone Unavailable Primary Care Provider Unavailabl e Encounter Details Date Type Department Care Team (Latest Contact Info) Description 12/14/2024 Travel Social History Tobacco Use Types Packs/Day [...] Description 01/11/2025 11:00 AM EDT Office Visit [facility] ADULT DENTAL [address] [place] [address] Neha Felder DMD 01/21/2025 9:30 AM EDT Office Visit [facility] MED & PEDS [address] [place] [address] Hernan Urbina MD [address] [place] [address] 02/14/2025 10:00 AM EDT Office Visit [facility] ADULT DENTAL [address] [place] [address] Domingo Spence documented as of this encounter Visit Diagnoses Not on filedocumented in this encounter
--- OUTSIDE RECORDS SUMMARY | 2024-12-28 15:11 | XMS_ITS | Patient Health Record ---
Author Organization [facility] Address [address] [place] [address] Care Team Providers Care Welder Explosion Name Role Phone Seun NAYAK, Carri Ramírez Primary Care Provider Un available Kathrine Cheema Unavailable [phone] Allergies Allergen (clinical drug ingredient) Drug/Non Drug [...] Problem Acquired hammer toe of right foot ([id number] 9105) Other hammer toe(s) (acquired), right foot (M20.41) Active confirmed Problem Acquired hammer toe of left foot ([id number] 9103) Other hammer toe(s) (acquired), left foot (M20.42) Active confirmed Problem 721920326 Neuropathy (G62.9) Active confirmed Problem 47724829 Type 2 diabetes mellitus with polyneuropathy (E11.42) Active confirmed Problem 823129882 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) Active confirmed Vital Signs Blood pressure diastolic 76 mm Hg 11/16/2024 Height [id number] in 11/16/2024 Blood pressure systolic 130 mm Hg 11/16/2024 Weight 128 lbs 11/16/2024 BMI 25.85 kg/m2 11/16/2024 Encounters Encounter [facility] Date [facility] [address] 01/07/2024 Kathrine Kanga Type 2 diabetes mellitus with polyneuropathy E11.42 ; Primary osteoarthritis of right ankle M19.071 and Acute right ankle pain M25.[address] [address] 03/19/2024 Kathrine Kanga Type 2 diabetes mellitus with polyneuropathy E11.[address] [address] 06/15/2024 Kathrine Perica Type 2 diabetes mellitus with [facility]neuropathy E11.42 [facility] [address] [place] [address] 11/16/2024 Kathrine Anette Type 2 diabetes mellitus with polyneuropathy E11.42 ; Other hammer toe(s) (acquired), right foot M20.41 and Other hammer toe(s) (acquired), left foot M20.42 [facility] [address] 06/15/2024 Kathrine Anette [facility] [address] 09/07/2024 Kathrine Anette [facility] [address] 09/07/2024 Kathrine Anette Assessments Encounter Date Diagnosis [...] Details Provider Name:Kathrine armando, 01/25/2025 02:30:00 PM, [address] [place] [address], [id number], Insurance Providers Payer Name Payer Address Payer Phone Subscriber Number Group Number Insured Name Patient Relationship to Insured Coverage Start Date Coverage End Date [facility] SCO Claims [address] [place] [id number] Meena Hidalgo Self - patient is the insured Medical (General) History Medical History History ICD Code type 2 diabetes depression/anxiety hyperlipidemia psychophysiological insomnia osteopenia adnexal mass HTN asthma AR 02/24/19 fatty liver uterine fibroid Arthritis Back,Hip,and Knee pain CAD (Cholesterol) High blood pressure Sciatica Stomach ulcer covid-19 Surgical History Surgery Date(Month/Year) 2x wisdom teeth extraction ganglion cyst resection Left rotator cuff repair Left hand tendon repair Right fibroid removal Dr. Ferguson 2012 LAD cardiac stent 03/2019 Right groin thrombectomy 03/2019 Left leg pain [facility] htn 05/2019 Stent 02/2019 Hospitalization History Reason Date(Month/Year) [facility]-bronchitis 08/26
--- OUTSIDE RECORDS SUMMARY | 2024-12-28 15:11 | XMS_ITS | Encounter Summary ---
Author Organization [facility] Address [address] [place] [address] 7 [place] [address] Care Team Providers Care Supervisor Accounting Clerks Name Role Phone Unavailable Primary Care Provider Unavailabl e Encounter Details Date Type Department Care Team (Latest Contact Info) Description 04/14/2019 Abstract [facility] CONVERSIONS Dental, Provider, DDS Social History [...] 11:00 AM EDT Office Visit [facility] ADULT DENTAL [address] [place] [address] Neha Felder DMD 01/21/2025 9:30 AM EDT Office Visit [facility] MED & PEDS [address] [place] [address] Hernan Urbina MD [address] [place] [address] 02/14/2025 10:00 AM EDT Office Visit [facility] ADULT DENTAL [address] [place] [address] Domingo Spence documented as of this encounter Visit Diagnoses Not on filedocumented in this encounter
--- OUTSIDE RECORDS SUMMARY | 2024-12-28 15:11 | XMS_ITS | Encounter Summary ---
Author Organization [facility] Address [address] [place] [address] 7 [place] [address] Care Team Providers Care Intelligence Operations Name Role Phone Unavailable Primary Care Provider Unavailabl e Encounter Details Date Type Department Care Team (Latest Contact Info) Description 04/15/2022 Abstract [facility] CONVERSIONS Dental, Provider, DDS Social [...] Description 01/11/2025 11:00 AM EDT Office Visit [facility] ADULT DENTAL [address] [place] [address] Neha Felder DMD 01/21/2025 9:30 AM EDT Office Visit [facility] MED & PEDS [address] [place] [address] Hernan Urbina MD [address] [place] [address] 02/14/2025 10:00 AM EDT Office Visit [facility] ADULT DENTAL [address] [place] [address] Domingo Spence documented as of this encounter Visit Diagnoses Not on filedocumented in this encounter
--- OUTSIDE RECORDS SUMMARY | 2024-12-28 15:11 | XMS_ITS ---
Author Organization [facility] Address [address] [place] [address] Care Team Providers Care Cloth Laminating Supervisor Name Role Phone Suen NAYAK, Carri Ramírez Primary Care Provider Un available Kathrine Cheema Unavailable [phone] REASON FOR VISIT NS 09-07-24 Encounters Encounter Location Date Provider Diagnosis [facility] [address] [place] [address] 09/07/2024 Kathrine Cheema Plan Of Treatment Next Appt Details Provider Name:Kathrine armando, 01/25/2025 02:30:00 PM, [address] [place], [address], Progress Notes * Judie TOLLIVERB:[birth year] (69 yo F)Acc No.[id number]:09/07/2024 Patient:?Meena TOLLIVER :1955???Age:69 Y???Sex:Female Address:[address] [place] [address], [address], [place], [address] * true * Date:? Generated for Arunai daryl/Raheel/eTransmitting on:?12/28/2024 03:10 PM EST
--- OUTSIDE RECORDS SUMMARY | 2024-12-28 15:11 | XMS_ITS | Encounter Summary ---
Author Organization [facility] Address [address] 7[address] [place] [address] Care Team Providers Care Swahili Teacher Name Role Phone Unavailable Primary Care Provider Unavailabl e Encounter Details Date Type Department Care Team (Late st Contact Info) Description 08/10/2024 Telephone [facility] ADULT DENTAL [address] [place], [place] [phone] Neha Felder DMD Social History Tobacco Use [...] Department Care Team (Late Contact Info) Description 01/11/2025 11:00 AM EDT Office Visit [facility] ADULT DENTAL [address] [place] [address] Neha Felder DMD 01/21/2025 9:30 AM EDT Office Visit [facility] MED & PEDS [address] [place], [place] [phone] Hernan Urbina MD [address] [place] [address] 02/14/2025 10:00 AM EDT Office Visit [facility] ADULT DENTAL [address] [place] [address] Domingo Spence documented as of this encounter Visit Diagnoses Not on filedocumented in this encounter
--- OUTSIDE RECORDS SUMMARY | 2024-12-28 15:11 | XMS_ITS | Encounter Summary ---
Author Organization [facility] Address [address] [place] [address] 7 [place] [address] Care Team Providers Care Investigation Officer Name Role Phone Unavailable Primary Care Provider Unavailabl e Encounter Details Date Type Department Care Team (Late Contact Info) Description 11/01/2022 Abstract [facility] ADULT [facility] [address] [place] [address] Thompson Cobb DDS [address] [place] [address] Social History Tobacco Use Types Packs/Day Years [...] - [facility] [address] [place] [address] Neha Felder DMD 01/21/2025 9:30 AM EDT Office Visit [facility] MED [facility]EDS [address] [place] [address] Hernan Urbina MD [address] [place], [place] [phone] 02/14/2025 10:00 AM EDT Office Visit [facility] ADULT D[facility] [address] [place] [address] Domingo Spence documented as of this encounter Visit Diagnoses Not on filedocumented in this encounter
--- OUTSIDE RECORDS SUMMARY | 2024-12-28 15:11 | XMS_ITS ---
Author Organization [facility] Address [address] [place] [address] Care Team Providers Care Director Of Enrollment Name Role Phone Seun NAYAK, Carri Ramírez Primary Care Provider Un available Kathrine Cheema Unavailable [phone] REASON FOR VISIT r/s for sooner apt Encounters Encounter Location Date Provider Diagnosis [facility] [address] [place] [address] 11/19/2024 Kathrine Cheema Plan Of Treatment Next Appt Details Provider Name:Kathrine armando, 01/25/2025 02:30:00 PM, [address] [place], [address], Progress Notes * Judie TOLLIVERB:[birth year] (69 yo F)Acc No.[id number]:11/19/2024 Progress Note Patient:?Meena TOLLIVER Provider:?Kathrine Cheema DPM :1955???Age:69 Y???Sex:Female D ate:11/19/2024 Address:[address] [place] [address], [address], [place] Pcp:Alvin Rodriguez Subjective: * Chief Complaints: * ???1. R/s for sooner apt. * Medical History:? Objective: * Vitals:? Assessment: Plan: * Treatment: * Images: * The named appointment provid er may or may not be the originator of this progress note, and it is not deemed complete until electronically signed by the appointment provider. Sign off status: Pending * Provider:Arianne Cheema DPM Date:? Generated for Osmar brito/Raheel/Bridgett on:?12/28/2024 03:11 PM EST
--- OUTSIDE RECORDS SUMMARY | 2024-12-28 15:11 | XMS_ITS ---
Author Organization [employer] [facility] Address [address] [facility] [place] [address] Care Team Providers Care Solar Tech Name Role Phone Seun NAYAK, Carri Ramírez Primary Care Provider Un available Kathrine Cheema Unavailable [phone] Allergies Allergen (clinical drug ingredient) Drug/Non Drug [...] other tobacco user? No Vital Signs Height 9lk03bd in 11/16/2024 Weight 128 lbs 11/16/2024 BMI 25.85 kg/m2 11/16/2024 Blood pressure systolic 130 mm Hg 11/16/19 Blood pressure diastolic 76 mm Hg 025 Encounters Encounter Location Date Provider Diagnosis [facility] [address] [address] 11/16/2024 Kathrine Cheema Type 2 diabetes mellitus [...] Reason: Provider Name:Kathrine armando, 01/25/2025 02:30:00 PM, [address] [place] [address], [address], Procedure Notes * Category Sub-Category Detail Notes [...] instrumentation by the physician of record - 54509 Progress Notes * Judie TOLLIVERB:[birth year] (69 yo F)Acc No.[id number]:11/16/2024 Progress Note Patient:?Meena TOLLIVER Provider:?Kathrine Cheema DPM :1955???Age:69 Y???Sex:Female D ate:11/16/2024 Address:[address] [place], [place] [phone] Pcp:Alvin Rodriguez Subjective: * Chief Complaints: * [...] - Side Effectsyes[Allergies Verified] Objective: * Vitals:?Ht: 3ot17uj, Wt:128, BMI:25.85, Shoe size: 5, BP:130/76mm Hg, [...] instrumentation by the physician of record - 94797.? * Procedure Codes:?51015 TRIM SKIN LESIONS, OVER 4, Modifiers: XS [...] for Osmar brito/Raheel/Bridgett on:?12/28/2024 03:11 PM EST History and Physical Notes * [...]
--- OUTSIDE RECORDS SUMMARY | 2024-12-28 15:11 | XMS_ITS | Encounter Summary ---
Author Organization [employer] Address [address] 7t [place] [address] Care Team Providers Care Veneer Sample Maker Name Role Phone Unavailable Primary Care Provider Unavailabl e Reason for Visit * Reason Onset Date Comments Appointment 05/20/2023 Encounter Details Date Type Department Care Team (Late st Contact Info) Description 05/20/2023 Telephone [facility]ULT [facility] [address] [place] [address] Thompson Cobb, DDS [address] [facility] [place] [address] Appointment Social History Tobacco Use Types Packs/Day [...] Description 01/11/2025 11:00 AM EDT Office Visit [facility] ADULT DENTAL [address] [place] [address] Neha Felder DMD 01/21/2025 9:30 AM EDT Office Visit [facility] MED & PEDS [address] [place] [address] Hernan Urbina MD [address] [place] [address] 02/14/2025 10:00 AM EDT Office Visit [facility] ADULT DENT[facility] [address] [place] [address] Domingo Spence documented as of this encounter Visit Diagnoses Not on filedocumented in this encounter
--- OUTSIDE RECORDS SUMMARY | 2024-12-28 15:11 | XMS_ITS | Encounter Summary ---
Author Organization [employer] [facility] Address [address] [place] [address] [address] [place] [address] Care Team Providers Care Photographic Equipment Assembler Name Role Phone Unavailable Primary Care Provider Unavailabl e Reason for Visit * Reason Comments Med Refill Encounter Details Date Type Department Care Team ([facility] Contact Info) Description 09/12/2023 Refill [facility] MED & PEDS [address] [place] [address] Christopher Spence MD [address] [place], [place] [phone] Social History Tobacco Use Types Packs/Day Years [...] Upcoming Encounters Date Type Department Care Team ([facility] Contact Info) Description 01/11/2025 11:00 AM EDT Office Visit [facility] ADULT DENTAL [address] [place] [address] Neha Felder DMD 01/21/2025 9:30 AM EDT Office Visit [facility] MED [facility] P[facility] [address] [place], [place] [phone] Hernan Urbina MD [address] [place] [address] 02/14/2025 10:00 AM EDT Office Visit [facility] ADULT DENTAL [address] [place] [address] Domingo Spence documented as of this encounter Visit Diagnoses Not on filedocumented in this encounter
--- OUTSIDE RECORDS SUMMARY | 2024-12-28 15:11 | XMS_ITS | Encounter Summary ---
Author Organization [employer] [facility] Address [address] 7t [place] [address] Care Team Providers Care Three Dimensional Map Modeler Name Role Phone Unavailable Primary Care Provider Unavailabl e Encounter Details Date Type Department Care Team (Late st Contact Info) Description 11/30/2024 Telephone [facility] ADULT DENTAL [address] [place] [address] eNha Felder DMD Social History Tobacco Use Types [...] encounter Miscellaneous Notes * Telephone Encounter - Kristian Aaron - 11/30/2024 10:36 AM EST called to marlyn appt for an earlier date , per Erika. Denisse nicolas, lvm. 1.28.25 documented in this encounter Plan of Treatment Upcoming Encounters Date Type Department Care Team (Late Contact Info) Description 01/11/2025 11:00 AM EDT Office Visit [facility] ADULT DENTAL [address] [place] [address] Neha Felder DMD 01/21/2025 9:30 AM EDT Office Visit [facility] MED & PEDS [address] [place] [address] Hernan rUbina MD [address] [place] [address] 02/14/2025 10:00 AM EDT Office Visit [facility] ADULT DENTAL [address] [place] [address] Domingo Spence documented as of this encounter Visit Diagnoses Not on filedocumented in this encounter
--- OUTSIDE RECORDS SUMMARY | 2024-12-28 15:12 | XMS_ITS | Data Portability ---
Author Organization [facility] Address [address] [place] [address] Care Team Providers Care Instrument Technician Helper Name Role Phone HIM CCA OTHER Assessment Encounter Date Assessment Date Assessment LastModified by Organization Details LastModified Time 03/08/2024 03/08/2024 I provided real -time medical direction via phone for this encounter, and was available for additional phone based assistance as needed. I have reviewed and agree with the Assessment and Plan as documented by the Architectural Drafter. We discussed the diagnostic uncertainty of home [...] to call 911- verbalized understanding of instruction [email or web address] Not available 03/08/2024 16:23:50 Plan of Treatment Reminders Order Date Submit Date Provider Last Modified By Organization Details Last Modified Time Details Appointments None recorded. Lab culture, urine 2023 024 [email or web address] [facility] (Centralized Electronic Ordering - All Locations), Patient Can Go To The Location Of Their Choice, [address] 4 11:16:43 urinalysis , dipstick 2023 024 [email or web address] 0 [facility], [address] [place] [address], [address], 4 15:54:29 glucose, fingerstic k, blood 2023 024 [email or web address] 0 [facility], [address] [place] [address], [address], 4 15:55:15 BMP, serum or plasma 2023 024 [email or web address] 0 [facility], [address] [place] [address], [address], 17:20:49 Referral None recorded. Procedures None recorded. Surgeries None recorded. Imaging None recorded. Medication Orders Pyridium 100 mg tablet 2023 [id number], [address] [place], [place], [id number], 16:23:58 Patient TargetsNo targets recorded. Patient InstructionsNo instructions recorded. Reason for Referral None Reported. Results Created Date Observation Date Name Description Value Unit Range Abnormal Flag Note LastModifiedBy Organization Detail LastModifiedTime 03/08/2003/08/2024 BMP, serum or plasm a GLU 293 Not Available [facility] [address] [place] [address], [address], 03/08/2024 16:23:59 03/08/2003/08/2024 gluco se, finge rstic k, blood Blood Glucose: mg/dl 313 Not Available [facility] [address] [place] [address], [address], 03/08/2024 15:54:50 03/08/20 24 03/08/2024 urina lysis , dipst ick Leukocytes neg Not Available [facility] [address] [place] [address], [address], 03/08/2024 15:52:25 03/08/20 24 03/08/2024 urina lysis , dipst ick Nitrite negati ve Not Available [facility] [address] [place] [address], [address], 03/08/2024 15:52:25 03/08/20 24 03/08/2024 urina lysis , dipst ick pH 5 Not Available [facility] [address], [address], 03/08/2024 15:52:25 03/08/20 24 03/08/2024 urina lysis , dipst ick Blood neg Not Available [facility] [address], [address], 03/08/2024 15:52:25 03/08/20 24 03/08/2024 urina lysis , dipst ick Specific [place] 1.005 Not Available [facility] [address] [place] [address], [address], 03/08/2024 15:52:25 03/08/20 24 03/08/2024 urina lysis , dipst ick Ketone neg Not Available [facility] [address], [address], 03/08/2024 15:52:25 03/08/20 24 03/08/2024 urina lysis , dipst ick Glucose 3+ Not Available [facility] [address], [address], 03/08/2024 15:52:25 03/08/20 24 03/08/2024 urina lysis , dipst ick Appearance clear Not Available [facility] [address] [place] [address], [address], 03/08/2024 15:52:25 03/08/20 24 03/08/2024 urina lysis , dipst ick Color yellow Not Available [facility] [address], [address], 03/08/2024 15:52:25 Result Notes None recorded. Medical Equipment None Reported. Allergies Allergen ID Allergen Name Allergen Category Reaction Reaction Severity Criticality Documentation Date Start Date Code Code System Note Provider Name and Address Organization Details Recorded Time 5042 Oxycontin medicatio n Not available Not available Not available 03/08/2024 49465 6 RxNorm Not Available [facility] - production 4 13:38:50 5043 shrimp allergeni c extract food Not available Not available Not available 03/08/2024 68541 2 RxNorm Mercy Castillo MD [address] [facility],[address], [place], [address], [facility] 15:52:46 9967 metformin medicatio n Not available Not available Not available 09/02/2024 6809 RxNorm Not Available [facility] - production 4 13:38:50 Medications Name Sig [...] Address Organization Details Last Updated DateTime 4 29054.1 44 g 98.2 [degF] 96 % 96 % 18 /min 149.86 cm 72 /min 146 mm[Hg] 81 mm[Hg] Not Available [employer] 4 15:50:30 Date Recorded Oxygen saturation Oxygen saturation in Arterial blood by Pulse oximetry Body temperature Heart rate Respiratory rate Systolic blood pressure Diastolic blood pressure Provider Name and Address Organization Details Last Updated DateTime 4 98 % 98 % 98.3 [degF] 106 /min 20 /min 180 mm[Hg] 92 mm[Hg] Not Available [employer] 4 15:59:56 Social History None recorded. Functional Status None recorded. Mental Status None recorded. Family History Nothing Reported. Medical History No medical history recorded. Gynecological HistoryNo gynecological history recorded. Obstetrics History GPAL:G 0 P 0 0 0 0 Past Encounters Encounter ID Performer Location Encounter Start Date Encounter Closed Date Diagnosis/Indication Diagnosis SNOMED-CT Code Diagnosis ICD10 Code Diagnosis Note [id number] Mercy Castillo MD [facility] [address] [place] [address] 03/08/2024 15:50:25 03/09/2024 11:54:56 Urinary symptoms 305686727 R39.9 No evidence of UTI based on dip she has glycosuria which could be causing the urgency and frequency- bmp ordered- nl renal function/ stable H & H.Will send urine culture and will call if UC positive for infection. Pat request Rx to go to [address] in [place]- made aware of Good RX card to defray cost - also have otc version- advised will turn urine bright orangey red- can stain underwear/ advised wearing pad for 3 -4 days PC team: Had bagels and grapes today- needs dietary consult re lower glycemic index foods- medic attempted to explain [id number] LYUDMILA DAMIAN MD [facility] [address] [place] [address] 09/02/2024 15:51:56 09/02/2024 21:41:56 Pain in right hip joint 6089898530 87825 M25.551 Evaluation in the field was performed by my lace sewer colleague, as noted above, I provided real-time [...] and treatment. -An expect was called at [facility] Primary care, consider__ _ Dispositio n:We discussed the situation and I recommende d referral to the emergency department . An expect was called at [facility] Concerns Section Related Observation LastModified by Organization Detai ls LastModified Time None Recorded Concern Status LastModified by Organization Details LastModified Time None Recorded Advance Directives Directive None Recorded Payers Encounter Date Sequence Insurance Name Policy Number Policy Meza Covered Member ID Meza Member ID Guarantor Name 03/08/2024 1 [facility] - DOS ON OR AFTER 2023 - DUAL ELIGIBLE - ASSISTED OPTIONS AND ONE CARE (MEDICARE REPLACEMENT/ADV ANTAGE - HMO) Meena Hidalgo [id number] Meena Hidalgo 09/02/2024 1 [facility] - DOS ON OR AFTER 2023 - DUAL ELIGIBLE - ASSISTED OPTIONS AND ONE CARE (MEDICARE REPLACEMENT/ADV ANTAGE - HMO) Meena Hidalgo [id number] Meena Hidalgo Notes Date Note Type Note [...] UTI/Pyelonephritis , Abdominal Pain Allergies: Unknown Comments: Information Lead verified the member's name//address and phone number. [...] - S/S for 3 days. Wellness check. Architectural Drafter POC Test Results from [facility] - [...] .................. .................. .................. .................. .................. .................. ............... Architectural Drafter Note From [facility]: Sent to a call for a pt [...] she has history of diabetes, CHF, and OK. Pt states she takes Farxiga, Januvia, and Glipizide. Pt also takes Eliquis. Pt reports allergy to Oxycontin, causing hallucinations. BP:146/81, P:72, RR:18, SpO2:96% RA, T:98.2, B; Head: unremarkable; Lung sounds: clear bilaterally; Abdomen: soft, non-tender, distention; Back: no CVA tenderness; Extremities: no peripheral edema; Skin: pink, warm, dry; Urine sample obtained: yellow, clear, concentrated; Urine dip results: uploaded to [employer]. [facility] consulted and orders POC bloodwork and urine culture to be sent to [facility]. Venous blood draw performed; Istat Chem8+ results: uploaded to [employer]. [facility] sends script to pt's pharmacy for pyridium. [...] ............... Disposition: Fulfilled Mercy Castillo MD [address] [facility], [place], [address], [facility] 03/08/2024 17:20:55 09/02/2024 text/html HPI: Mbr called [...] .................. .................. .................. .................. .................. .................. ............... Architectural Drafter Note From Arjun Hubbard: Dispatched to the [...] afebrile, mucous membranes pink and moist, -edema, [facility] consulted. 911 called on behalf of the Pt, [facility] transported Pt to [facility]. ALL times are approx. .................. .................. .................. .................. .................. .................. .................. ............... [facility] Consulted: Lyudmila Damian .................. .................. .................. .................. .................. .................. .................. ............... Disposition: Sarah DAMIAN MD [address] [place] [address],[address] [facility], [place], [address], [employer] 09/02/2024 19:04:26 OBGyn Episode No OBEpisode recorded.
== END 2024-12-28 13:02 | disposition home or self-care (01) ==
LOC: HO.HWS 12:31
PROVIDERS: PCP Internal Medicine; Visit Provider Obstetrics & Gynecology
DX: N95.0 Postmenopausal bleeding (principal)
CPT/HCPCS: 99213

== ENCOUNTER → 2024-12-28 12:31 | Outpatient (BNVA) | payer OTHER, SELFPAY | PROVIDERS: PCP Internal Medicine; Visit Provider Obstetrics & Gynecology | DX: N95.0 Postmenopausal bleeding (principal) | CPT/HCPCS: 99212 ==

== ENCOUNTER 2025-01-10 09:02 | Outpatient (AMB) | payer OTHER, SELFPAY ==
--- NOTE | 2025-01-10 09:05 | A.OFFVIS_ITS ---
Intake Visit Reasons: Bladder Mass Intake Note: New Patient presents for initial visit for bladder mass Urology Medications: myrbetriq Blood Thinner: none Insole Toe Snipping Machine Operator Required: No Accompanied by: Self / Same As Patient Allergies atorvastatin [From LIPITOR] Adverse Reaction (Intermediate, Verified 01/10/25 09:17) STOMACH ACHE oxycodone [From OXYCONTIN] Adverse Reaction (Intermediate, Verified 01/10/25 09:17) SENSORY HALLUCINATIONS sulfamethoxazole [From Bactrim] Adverse Reaction (Intermediate, Verified 01/10/25 09:17) chills vitamin d Adverse Reaction (Intermediate, Uncoded 01/10/25 09:17) Hallucinations Medication List - Last Reconciled 01/10/25 by MANOHAR Walker acetaminophen (Tylenol Extra Strength) 500 mg PO Q6H PRN albuterol sulfate 90 mcg/actuation 2 puffs inhalation Q6H PRN artificial tear(hojnh-ndp-lmb) 0.1-0.3-0.2 % drkirby ophthalmic (eye) blood sugar diagnostic (FreeStyle Lite Strips) 1 strip miscellaneous BID celecoxib (Celebrex) 100 mg PO DAILY PRN cyclobenzaprine 5 mg PO BID PRN dapagliflozin propanediol (Farxiga) 10 mg PO QAM docusate sodium 100 mg PO DAILY ezetimibe 10 mg PO DAILY fluticasone propionate 110 mcg/actuation 1 puff inhalation Q12H hydroxyzine HCl 10 mg PO .qd PRN lancets (FreeStyle Lancets) As directed lisinopril 5 mg PO DAILY lorazepam (Ativan) 1 mg PO ONCE metoprolol succinate ER 200 mg PO DAILY mirabegron ER (Myrbetriq) 25 mg PO DAILY multivitamin 1 tab PO DAILY nitroglycerin 0 mg sublingual repaglinide 2 mg PO TID rosuvastatin 5 mg PO DAILY sitagliptin phosphate (Januvia) 100 mg PO DAILY HPI Comments Details: Meena is a 69-year-old female patient of Dr Rajput. She has a past medical history of mixed urinary incontinence, anxiety, asthma, overactive bladder, diabetes, osteoarthritis, depression, osteopenia, varicose veins, ST- elevation myocardial infarction, coronary artery disease followed at [facility] with Dr. Will, hypertension, and dyslipidemia. She presents to the office today as a new patient for a bladder mass. In discussion with the patient today she reports noting over the last 2 years to be having ongoing issues with urinary urgency and frequency at which time she was started on Myrbetriq with her PCP and felt this helped her symptoms significantly. She reports approximately 2 months ago she started experiencing abnormal vaginal bleeding and followed up with her gis software developer at which time a vaginal ultrasound was ordered and performed and patient was noted to have fungating mass in the bladder measuring 1.7 x 1.3 x 2.0 cm. In office urinalysis results reviewed with the patient today 3+ microscopic blood. When asked she denies any previous history of nicotine dependence and or workplace chemical exposure. 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 We discussed further workup to include CT urogram as well as in office cystoscopy. She denies dysuria, foul smelling urine, changes to urinary stream, flank pain, fever, and or chills. She otherwise offers no other issues or concerns at this time. [facility] Medical History Metformin adverse reaction Urinary incontinence, mixed Oropharyngeal dysphagia COVID-19 vaccination refused Refused influenza vaccine Diabetes mellitus with hyperglycemia, without long-term current use of insulin Anxiety as acute reaction to gross stress Mild intermittent asthma in adult without complication OAB (overactive bladder) Diabetes mellitus with microalbuminuria, without long-term current use of insulin Osteoarthritis, knee History of depression Osteopenia after menopause Overweight Varicose veins of right lower extremity History of ST elevation myocardial infarction (STEMI) Coronary artery disease involving [place] coronary artery Hypertension Refused pneumococcal vaccination Dyslipidemia Surgical History History of section Hx of myomectomy S/P left rotator cuff repair History of heart artery stent Family History Father No problems noted. Mother No problems noted. 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 Current occupational exposures/hazards: No Cognitive needs: No Hearing needs: No Vision needs: Yes Female Reproductive History Menstrual Age of Menarche: 12 Review of Systems Const All systems reviewed & are unremarkable except as noted in HPI and below Physical Exam Const General: cooperative, healthy appearing, comfortable, no acute distress, well developed, alert and awake Orientation/consciousness: patient oriented x3 Limitations: no limitations HEENT Head: Yes normal to inspection, Yes normocephalic and Yes atraumatic Ears: hearing grossly normal bilaterally Eyes General: appearance normal, both eyes and all related structures Neck Neck: Yes normal visual inspection and Yes trachea midline Chest Chest palpation & inspection: normal inspection of the chest Resp Effort & Inspection: normal respiratory effort and able to speak in complete sentences Cardio Rate: regular rate GI Inspection: Yes normal to inspection General: Yes no CVA tenderness Back/Spine/Pelvis Back: no CVA tenderness Skin General skin exam: no rashes or lesions noted Neuro General: patient oriented x3 Extrem General: Yes normal to inspection Psych Appearance: grossly normal and well kempt Mental Status: mental status grossly normal Speech and movement: Normal speech and movement present and Clear speech present Affect: normal affect Attitude: cooperative Thought process: Normal thought process present Thought content: Normal thought content present Insight: Fair insight present (Psych) Judgement: Fair judgement present (Psych) Results AMB Urinalysis, Automated UA Leukoctes 0 Lianne/uL Last Edit by Chad Chambers on 01/10/25 09:23 UA Nitrite Last Edit by Chad Chambers on 01/10/25 09:23 UA Urobilinogen 0.2 mg/dL Last Edit by Chad Chambers on 01/10/25 09:23 UA Protein 0 mg/dL Last Edit by Chad Chambers on 01/10/25 09:23 UA pH 5.5 Last Edit by Chad Chambers on 01/10/25 09:23 UA Blood 200 Cb/uL Last Edit by Chad Chambers on 01/10/25 09:23 UA Specific [place] 1.010 Last Edit by Chad Ramirezfiorella on 01/10/25 09:23 UA Ketone Last Edit by Chad Ramirezfiorella on 01/10/25 09:23 UA Bilirubin 0 mg/dL Last Edit by Calvinperezsukhi Ramirezfiorella on 01/10/25 09:23 UA Glucose 500 mg/dL Last Edit by Calvinperezsukhi Ramirezfiorella on 01/10/25 09:23 Results Reviewed Results Reviewed: Laboratory Last Values Urine pH (Auto) 5.5 01/10/25 09:10 Specific [place] (Auto) 1.010 01/10/25 09:10 Urine Protein (Auto) 0 mg/dL 01/10/25 09:10 Glucose (UA)(Auto) 500 mg/dL 01/10/25 09:10 Urine Blood (Auto) 200 Cb/uL 01/10/25 09:10 Urine Bilirubin (Auto) 0 mg/dL 01/10/25 09:10 Urine Urobilinogen (Auto) 0.2 mg/dL 01/10/25 09:10 Leukocyte Esterase (Auto) 0 Lianne/uL 01/10/25 09:10 Date of Service: 11/06/24 Procedure(s): US pelvic and transvaginal Findings: Transvaginal scanning performed. Diverted uterus is 9.3 cm length. Normal myometrium. Endometrium 5 mm thickness. Incidentally discovered fungating mass in the bladder measuring 1.7 x 1.3 x 2.0 cm. Right ovary 6.6 x 5.4 x 4.5 cm. Normal spectral Doppler of the right ovary. The left ovary is not identified. No free fluid. IMPRESSION: Normal endometrium. The left ovary was not identified. No evidence of torsion of the right ovary. Incidentally discovered fungating mass in the bladder Assessment & Plan Assessment & Plan (1) Bladder mass: Code(s): N32.89 - Other specified disorders of bladder Category: Medical (2) Microscopic hematuria: Code(s): R31.29 - Other microscopic hematuria Category: Medical (3) Gross hematuria: Code(s): R31.0 - Gross hematuria Category: Medical Plan In office urinalysis results reviewed with the patient today; as noted above; will send for urine cytology. Recent vaginal ultrasound results reviewed with the patient today; as noted above. Will obtain CT urogram for further assessment evaluation. BUN and creatinine ordered for imaging. We discussed at length potential bladder mass and gross hematuria. We discussed workup to include in office cystoscopy; risks and benefits were discussed All questions were answered Follow-up next available in office cystoscopy with imaging and labs to be completed prior; or sooner with any issues, concerns, and or questions. Orders: Orders AMB Urinalysis Automated Today Z13.9 - Encounter for screening, unspecified CT urogram Today N32.89 - Other specified disorders of bladder Creatinine Today R39.15 - Urgency of urination Urine Cytology Today N32.89 - Other specified disorders of bladder Blood Urea Nitrogen Today R39.15 - Urgency of urination Patient Instructions: The patient had an opportunity to ask questions regarding the treatment plan. All questions were answered. Physical exam, labs, and imaging were discussed and reviewed in detail. As well as risks, benefits, and discussion of treatment choices. No major barriers to understanding were identified. The patient expressed understanding and agreement with the above treatment plan. The patient was made aware they should contact our office by phone for worsening of their current condition, the appearance of new symptoms, or with any questions or concerns. Compliance is encouraged with any medications and follow up testing that is ordered. It is a privilege to be allowed the opportunity to participate in? your urological care.? Again, if you have any questions or concerns If you have any questions or concerns please do not hesitate to contact me. The office is [phone]. This note is constructed using voice recognition software. While every effort has been made to ensure accuracy securities broker errors may have been included. Yours sincerely, MANOHAR Walker Coding Level of Care Code New Pt Level 3 (00264) Diagnoses Bladder mass N32.89 Microscopic hematuria R31.29 Gross hematuria R31.0
--- OUTSIDE RECORDS SUMMARY | 2025-01-10 09:31 | XMS_ITS | Encounter Summary ---
Author Organization [facility] Address [address] [place] [address] 7 [place] [address] Care Team Providers Care Scientific Director Name Role Phone Unavailable Primary Care Provider Unavailabl e Encounter Details Date Type Department Care Team (Latest Contact Info) Description 04/15/2022 Abstract [facility] CON[facility] Dental, Provider, DDS Social [...] Description 01/11/2025 11:00 AM EDT Office Visit [facility] [address] [place] [address] Neha Felder DMD 01/21/2025 9:30 AM EDT Office Visit [facility] [address] [place] [address] Hernan Urbina MD [address] [place] [address] 02/14/2025 10:00 AM EDT Office Visit [facility] [address] [place] [address] Domingo Spence documented as of this encounter Visit Diagnoses Not on filedocumented in this encounter
--- OUTSIDE RECORDS SUMMARY | 2025-01-10 09:31 | XMS_ITS | Encounter Summary ---
Author Organization [facility] Address [address] [place] [address] 7 [place] [address] Care Team Providers Care Sales Support Technician Name Role Phone Unavailable Primary Care Provider Unavailabl e Encounter Details Date Type Department Care Team (Late Contact Info) Description 11/01/2022 Abstract [facility] [address] [place] [address] Thompson Cobb DDS [address] [place] [address] Social History Tobacco Use Types Packs/Day Years [...] Description 01/11/2025 11:00 AM EDT Office Visit [facility] [address] [place] [address] Neha Felder DMD 01/21/2025 9:30 AM EDT Office Visit [facility] [address] [place] [address] Hernan Urbina MD [address] [place], [place] [phone] 02/14/2025 10:00 AM EDT Office Visit [facility] [address] [place] [address] Domingo Spence documented as of this encounter Visit Diagnoses Not on filedocumented in this encounter
--- OUTSIDE RECORDS SUMMARY | 2025-01-10 09:31 | XMS_ITS | Encounter Summary ---
Author Organization [facility] Address [address] [place] [address] Care Team Providers Care Beam Dyer Name Role Phone Unavailable Primary Care Provider Unavailabl e Encounter Details Date Type Department Care Team (Late st Contact Info) Description 11/15/2024 Telephone [facility] [address] [place], [place] [phone] Neha Felder DMD Social History Tobacco Use [...] 11:00 AM EDT Office Visit [facility] [address] [place], [place] [phone] Neha Felder DMD 01/21/2025 9:30 AM EDT Office Visit [facility] [address] [place], [place] [phone] Hernan Urbina MD [address] [place] [address] 02/14/2025 10:00 AM EDT Office Visit [facility] [address] [place] [address] Domingo Spence documented as of this encounter Visit Diagnoses Not on filedocumented in this encounter
--- OUTSIDE RECORDS SUMMARY | 2025-01-10 09:32 | XMS_ITS | Encounter Summary ---
Author Organization [employer] [facility] Address [address] [place] [address] 7 [place] [address] Care Team Providers Care Silver Lap Machine Tender Name Role Phone Unavailable Primary Care Provider Unavailabl e Encounter Details Date Type Department Care Team (Latest Contact Info) Description 04/14/2019 Abstract [facility] CONVERSIONS Dental, Provider, DDS Social History [...] [facility] [address] [place] [address] Neha Felder DMD 01/21/2025 9:30 AM EDT Office Visit [facility] [address] [place] [address] Hernan Urbina MD [address] [place] [address] 02/14/2025 10:00 AM EDT Office Visit [facility] [address] [place] [address] Domingo Spence documented as of this encounter Visit Diagnoses Not on filedocumented in this encounter
--- OUTSIDE RECORDS SUMMARY | 2025-01-10 09:32 | XMS_ITS | Encounter Summary ---
Author Organization [employer] Address [address] [place] [address] Care Team Providers Care Farm Mechanic Apprentice Name Role Phone Unavailable Primary Care Provider Unavailabl e Reason for Visit * Reason Onset Date Comments Appointment 05/20/2023 Encounter Details Date Type Department Care Team (Late st Contact Info) Description 05/20/2023 Telephone [facility] [address] [place] [address] Thompson Cobb, DDS [address] [facility] [place] [address] Appointment Social History Tobacco Use Types Packs/Day [...] Visit [facility] [address] [place] [address] Neha Felder DMD 01/21/2025 9:30 AM EDT Office Visit [facility] [address] [place] [address] Hernan Urbina MD [address] [place] [address] 02/14/2025 10:00 AM EDT Office Visit [facility] [address] [place] [address] Domingo Spence documented as of this encounter Visit Diagnoses Not on filedocumented in this encounter
--- OUTSIDE RECORDS SUMMARY | 2025-01-10 09:32 | XMS_ITS ---
Author Organization [facility] Address [address] [place] [address] Care Team Providers Care Impregnator And Drier Helper Name Role Phone Seun NAYAK, Carri Ramírez Primary Care Provider Un available Kathrine Cheema Unavailable [phone] REASON FOR VISIT r/s for sooner apt Encounters Encounter Location Date Provider Diagnosis [facility] [address] [place] [address] 11/19/2024 Kathrine Cheema Plan Of Treatment Next Appt Details Provider Name:Kathrine armando, 01/25/2025 02:30:00 PM, [address] [place], [address], Progress Notes * Judie TOLLIVERB:[birth year] (69 yo F)Acc No.[id number]:11/19/2024 Progress Note Patient:?Meena TOLLIVER Provider:?Kathrine Cheema DPM :1955???Age:69 Y???Sex:Female D ate:11/19/2024 Address:[address] [place] [address], [address], [place], [place] Pcp:Alvin Rodriguez Subjective: * Chief Complaints: * [...] Cheema DPM Date:? Generated for Osmar brito/Raheel/Bridgett on:?01/10/2025 09:31 AM EDT
--- OUTSIDE RECORDS SUMMARY | 2025-01-10 09:32 | XMS_ITS ---
Author Organization [facility] Address [address] [place] [address] Care Team Providers Care Technology Resource Teacher Name Role Phone Seun NAYAK, Carri Ramírez Primary Care Provider Un available Kathrine Cheema Unavailable [phone] Allergies Allergen (clinical drug ingredient) Drug/Non Drug [...] other tobacco user? No Vital Signs Height 4us98do in 11/16/2024 Weight 128 lbs 11/16/2024 BMI 25.85 kg/m2 11/16/2024 Blood pressure systolic 130 mm Hg 11/16/19 Blood pressure diastolic 76 mm Hg 025 Encounters Encounter Location Date Provider Diagnosis [facility] [address] [address] 11/16/2024 Kathrine Cheema Type 2 diabetes mellitus [...] Reason: Provider Name:Kathrine armando, 01/25/2025 02:30:00 PM, [address] [place] [address], [phone], Procedure Notes * Category Sub-Category Detail Notes [...] instrumentation by the physician of record - 07105 Progress Notes * Judie TOLLIVERB:[birth year] (69 yo F)Acc No.[id number]:11/16/2024 Progress Note Patient:?Meena TOLLIVER Provider:?Kathrine Cheema DPM :1955???Age:69 Y???Sex:Female D ate:11/16/2024 Address:[address] [place], [place] [id number] Pcp:Alvin Rodriguez Subjective: * Chief Complaints: * [...] - Side Effectsyes[Allergies Verified] Objective: * Vitals:?Ht: 2on97iz, Wt:128, BMI:25.85, Shoe size: 5, BP:130/76mm Hg, BS: not taken, Ht-cm: 149.86 cm, Wt-k.06 kg. * Examination: ???CQM Exceptions:: ?Hemoglobin A1c not performed?Reason:?No reason specified?Ophthalmology Referral: ?DIABETES EYE EXAM?Procedure Performed:?Yes ?Date of Exam Performed?07/04/2024 ?Findings of Diabetic Eye Exam:?no retinopathy?General Examination: ?GENERAL APPEARANCE:?Reveals a pleasant, alert, well nourished, well- developed, well hydrated individual, who demonstrates proper attention to hygiene/body habitus, and is in no acute distress, Pt serves as own historian for office visit today.?ORIENTED:?person, place, and time.?FOOT EXAM:?Lower Extremity Neurological Exam performed:?Yes ?Visual exam of foot performed:?Yes ?Date?11/16/2024 ?Footwear Evaluation?Footwear Evaluation performed:?Yes?Neurological: ?SENSORY:?Neurological exam demonstrates, reduced light touch sensation, reduced sharp/dull pin prick discrimination, reduced vibration sensation, Pt relates, anesthesia, hyperesthesia, paresthesia, B/L.?Vascular: ?DP PULSES (B):? /, B/L.?PT PULSES (B):? /, B/L.?CAPILLARY FILL TIME:?immediate, all digits, B/L.?TROPHIC CONDITION-TEXTURE/ELASTICITY/TURGOR/HAIR [...] instrumentation by the physician of record - [id number].? * Procedure Codes:?65392 TRIM SKIN LESIONS, OVER 4, Modifiers: XS [...] Provider:?Kathrine Cheema DPM Date:? Generated for Osmar brito/Raheel/Louisitting on:?01/10/2025 09:32 AM EDT History and Physical Notes * HPI (History [...]
--- OUTSIDE RECORDS SUMMARY | 2025-01-10 09:32 | XMS_ITS | Clinical Summary ---
Author Organization [employer] Address [address] 7[address] [place] [address] Care Team Providers Care Half Section Ironer Name Role Phone Unavailable Primary Care Provider [...] EST): Last pcp visit 1 year at [facility] ER: November due to vaginal bleeding, back pain [facility]: 6 years ago due to PR s/p stent x2 Pmhx: DM, HTN, Cholesterol, PR s/p stent x2, CHF, atrial fibrillation Pshx: [...] Team Description 12/21/2024 9:00 AM EST Telemedicine [facility] [address] [place] [address] Hernan Urbina MD Encounter to establish care (Primary Dx); Chronic diastolic heart failure (CMS/HCC); Paroxysmal atrial fibrillation (CMS/HCC); Type 2 diabetes mellitus with diabetic peripheral angiopathy without gangrene, without long-term current use of insulin (CMS/HCC) 12/21/2024 Travel 12/14/2024 Travel 12/09/2024 Travel 11/30/2024 Telephone [facility] [address] [place] [address] Neha Felder DMD 11/17/2024 1:00 PM EST Office Visit [facility] [address] [place] [address] Neha Felder DMD 11/17/2024 Telephone [facility] [address] [place] [address] Hernan Urbina MD Appointment 11/17/2024 Travel 11/16/2024 Orders Only [facility] [address] [place] [address] Neha Felder, GLORIA 11/15/2024 Telephone [facility] [address] [place] [address] Neha Felder, GLORIA 11/10/2024 Travel 11/01/2024 Telephone [facility] [address] [place] [address] Marcos Friedman MD New patient appt. 11/01/2024 Telephone [facility] [address] [place] [address] Marcos Friedman MD Appointment Request 10/12/2024 9:00 AM EST Office Visit [facility] [address] [place] [address] Neha Felder DMD from Last 3 Months Family History Medical [...] 11:00 AM EDT Office Visit [facility] [address] [place] [address] Neha Felder DMD 01/21/2025 9:30 AM EDT Office Visit [facility] [address] [place] [address] Hernan Urbina MD [address] [place] [address] 02/14/2025 10:00 AM EDT Office Visit [facility] [address] [place] [address] Domingo Spence Health Maintenance Due Date Last [...] Dental X-Ray: [facility] 08/14/2025 08/13/20, 06/17/2024, 04/16/2023 Depression Screening 12/21/2025 12/21/2024, 12/21/2024 [...] to Health Maintenance Insurance [place] [id number] [facility]
--- OUTSIDE RECORDS SUMMARY | 2025-01-10 09:32 | XMS_ITS | Patient Health Record ---
Author Organization [facility] Address [address] [facility] [place] [address] Care Team Providers Care Scuba Diver Name Role Phone Seun NAYAK, Carri Ramírez Primary Care Provider Un available Kathrine Cheema Unavailable [phone] Allergies Allergen (clinical drug ingredient) Drug/Non Drug [...] Problem Acquired hammer toe of right foot (042285502882 9105) Other hammer toe(s) (acquired), right foot (M20.41) Active confirmed Problem Acquired hammer toe of left foot (255866235804 9103) Other hammer toe(s) (acquired), left foot (M20.42) Active confirmed Problem 454907671 Neuropathy (G62.9) Active confirmed Problem 45867368 Type 2 diabetes mellitus with polyneuropathy (E11.42) Active confirmed Problem 910057134 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) Active confirmed Vital Signs Blood pressure diastolic 76 mm Hg 11/16/2024 Height 4ja47uy in 11/16/2024 Blood pressure systolic 130 mm Hg 11/16/2024 Weight 128 lbs 11/16/2024 BMI 25.85 kg/m2 11/16/2024 Encounters Encounter Location Date Provider Diagnosis [facility] [address] 03/19/2024 Kathrine Cheema Type 2 diabetes mellitus with polyneuropathy E11.[facility] [address] 06/15/2024 Kathrine Kanga Type 2 diabetes mellitus with polyneuropathy E11.[address] [address] 11/16/2024 Kathrine Kanga Type 2 diabetes mellitus with polyneuropathy E11.42 ; Other hammer toe(s) (acquired), right foot M20.41 and Other hammer toe(s) (acquired), left foot M20.42 [facility] [address] [address] 06/15/2024 Kathrine Cheema [facility] [address] [address] 09/07/2024 Kathrine Cheema [facility] [address] [address] 09/07/2024 Kathrine Jorge Luisprabha Assessments Encounter Date Diagnosis (ICD Code) Assessment Notes Treatment Notes Treatment Clinical Notes Section Notes 03/19/2024 Type 2 diabetes mellitus with polyneuropathy [...] 3V 11/05/2023 Next Appt Details Provider Name:Kathrine Prabha armando, 01/25/2025 02:30:00 PM, [address] [place] [address], [phone], Insurance Providers Payer Name Payer Address Payer Phone Subscriber Number Group Number Insured Name Patient Relationship to Insured Coverage Start Date Coverage End Date [facility] [employer] Claims [address] [facility] MELLISA Rodríguez [id number] Meena Hidalgo Self - patient is the insured Medical (General) History Medical History History ICD Code type 2 diabetes depression/anxiety hyperlipidemia psychophysiological insomnia osteopenia adnexal mass HTN asthma OK 02/24/19 fatty liver uterine fibroid Arthritis Back,Hip,and [...]
--- OUTSIDE RECORDS SUMMARY | 2025-01-10 09:32 | XMS_ITS | Encounter Summary ---
Author Organization [employer] Address [address] [facility] 7t [place] [address] Care Team Providers Care Editor Greeting Card Name Role Phone Unavailable Primary Care Provider Unavailabl e Encounter Details Date Type Department Care Team (Late st Contact Info) Description 12/21/2024 9:00 AM EST Telemedicine [facility] MED & PEDS [address] [place] [address] MD [address] [place], [place] [phone] Encounter to establish care (Primary Dx); Chronic [...] Primary Last pcp visit 1 year at [facility] ER: November due to vaginal bleeding, back pain [facility]: 6 years ago due to ID s/p stent x2 Pmhx: DM, HTN, Cholesterol, ID s/p stent x2, CHF, atrial fibrillation Pshx: [...] care Last pcp visit 1 year at [facility] ER: November due to vaginal bleeding, back pain [facility]: 6 years ago due to ID s/p stent x2 Pmhx: DM, HTN, Cholesterol, ID s/p stent x2, CHF, atrial fibrillation Pshx: rotary cuff left arm 2004, csec , hand CTS right 2004, right trigger finger 2009 Meds: as above documented in this encounter Plan of Treatment Upcoming Encounters Date Type Department Care Team (Late st Contact Info) Description 01/11/2025 11:00 AM EDT Office Visit [facility] [address] [place] [address] Neha Felder DMD 01/21/2025 9:30 AM EDT Office Visit [facility] MED & PEDS [address] [place] [address] Hernan Urbina MD [address] [place] [address] 02/14/2025 10:00 AM EDT Office Visit [facility] [address] [place] [address] Domingo Spence documented as of this encounter [...]
--- OUTSIDE RECORDS SUMMARY | 2025-01-10 09:32 | XMS_ITS | Encounter Summary ---
Author Organization [employer] [facility] Address [address] [place] [address] 7 [place] [address] Care Team Providers Care Claims Supervisor Name Role Phone Unavailable Primary Care Provider Unavailabl e Reason for Visit * Reason Comments Med Refill Encounter Details Date Type Department Care Team ([facility] Contact Info) Description 09/12/2023 Refill [facility] MED & PEDS [address] [place] [address] Christopher Spence MD 505 [place], [place] [phone] Social History Tobacco Use Types Packs/Day Years [...] Upcoming Encounters Date Type Department Care Team ([facility] Contact Info) Description 01/11/2025 11:00 AM EDT Office Visit [facility] 505 [place] [address] Neha Felder DMD 01/21/2025 9:30 AM EDT Office Visit [facility] [address] [place], [place] [phone] Hernan Urbina MD 505 [place] [address] 02/14/2025 10:00 AM EDT Office Visit [facility] [address] [place] [address] Domingo Spence documented as of this encounter Visit Diagnoses Not on filedocumented in this encounter
--- OUTSIDE RECORDS SUMMARY | 2025-01-10 09:32 | XMS_ITS | Encounter Summary ---
Author Organization [employer] [facility] Address [address] [place] [address] 7 [place] [address] Care Team Providers Care Welder Apprentice Combination Name Role Phone Unavailable Primary Care Provider Unavailabl e Encounter Details Date Type Department Care Team (Latest Contact Info) Description 02/02/2021 Abstract [facility] CONVERSIONS Dental, Provider, DDS Social History [...] Description 01/11/2025 11:00 AM EDT Office Visit [facility] ADULT DENTAL 505 [place] [address] Neha Felder DMD 01/21/2025 9:30 AM EDT Office Visit [facility] MED & PEDS 505 [place] [address] Hernan Urbina MD 505 [place] [address] 02/14/2025 10:00 AM EDT Office Visit [facility] ADULT DENTAL 505 [place] [address] Domingo Spence documented as of this encounter Visit Diagnoses Not on filedocumented in this encounter
--- OUTSIDE RECORDS SUMMARY | 2025-01-10 09:32 | XMS_ITS | Encounter Summary ---
Author Organization [email or web address] [facility] Address [address] [facility] [address] [address] 7t [place] [address] Care Team Providers Care Store Sales Manager Name Role Phone Unavailable Primary Care Provider Unavailabl e Encounter Details Date Type Department Care Team (Late st Contact Info) Description 08/10/2024 Telephone [facility] [address] [place], [place] [phone] Neha Felder DMD Social History Tobacco Use [...] Description 01/11/2025 11:00 AM EDT Office Visit [facility] ADULT DENTAL [address] [place] [address] Neha Felder DMD 01/21/2025 9:30 AM EDT Office Visit [facility] MED & PEDS [address] [place], [place] [phone] Hernan Urbina MD 505 [place] [address] 02/14/2025 10:00 AM EDT Office Visit [facility] ADULT DENTAL 505 [place] [address] Domingo Spence documented as of this encounter Visit Diagnoses Not on filedocumented in this encounter
--- OUTSIDE RECORDS SUMMARY | 2025-01-10 09:32 | XMS_ITS | Encounter Summary ---
Author Organization [email or web address] [facility] Address [address] [facility] [facility] [address] 7t [place] [address] Care Team Providers Care Storage Administrator Name Role Phone Unavailable Primary Care Provider [...] Description 01/11/2025 11:00 AM EDT Office Visit [facility] ADULT DENTAL [address] [place] [address] Neha Felder DMD 01/21/2025 9:30 AM EDT Office Visit [facility] MED & PEDS [address] [place], [place] [phone] Hernan Urbina MD 505 [place] [address] 02/14/2025 10:00 AM EDT Office Visit [facility] ADULT DENT[facility] 505 [place] [address] Domingo Spence documented as of this encounter Visit Diagnoses Not on filedocumented in this encounter Additional Health Concerns Assessment Noted Time PHQ-9 Depression Total Score: 2 12/21/19 25 8:57 AM EST documented as of this encounter
--- OUTSIDE RECORDS SUMMARY | 2025-01-10 09:32 | XMS_ITS | Encounter Summary ---
Author Organization [facility] [facility] Address [address] [place] [address] [address] [place] [address] Care Team Providers Care Belting And Webbing Inspector Name Role Phone Unavailable Primary Care [...] [facility] ADULT [facility] [address] [place] [address] Neha Felder DMD 01/21/2025 9:30 AM EDT Office Visit [facility] MED & PEDS 505 [place] [address] Hernan Urbina MD 505 [place] [address] 02/14/2025 10:00 AM EDT Office Visit [facility] ADULT D[facility] 505 [place] [address] Domingo Spence documented as of this encounter Visit Diagnoses Not on filedocumented in this encounter
== END 2025-01-10 09:37 | disposition home or self-care (01) ==
PROVIDERS: PCP Internal Medicine; Visit Provider Nurse Practitioner Family
DX: N32.89 Other specified disorders of bladder (principal); R31.29 Other microscopic hematuria; R31.0 Gross hematuria; Z13.9 Encounter for screening, unspecified
CPT/HCPCS: 99203

== ENCOUNTER 2025-01-10 09:02 | Outpatient (REF) | payer OTHER, SELFPAY ==
--- OUTSIDE RECORDS SUMMARY | 2025-01-10 10:05 | XMS_ITS | Encounter Summary ---
Author Organization [facility] Address [address] [facility] 7t [place] [address] Care Team Providers Care Police And Fire Dispatcher Name Role Phone Unavailable Primary Care Provider Unavailabl e Encounter Details Date Type Department Care Team (Late st Contact Info) Description 11/15/2024 Telephone [facility] ADULT D[facility] [address] [place], [place] [phone] Neha Felder DMD Social History Tobacco Use [...] 11:00 AM EDT Office Visit [facility] ADULT [facility] 505 [place], [place] [phone] Neha Felder DMD 01/21/2025 9:30 AM EDT Office Visit [facility] MED & PEDS [address] [place], [place] [phone] Hernan Urbina MD 505 [place] [address] 02/14/2025 10:00 AM EDT Office Visit [facility] ADULT DENTAL [address] [place] [address] Domingo Spence documented as of this encounter Visit Diagnoses Not on filedocumented in this encounter
--- OUTSIDE RECORDS SUMMARY | 2025-01-10 10:05 | XMS_ITS ---
Author Organization [facility] Address [address] [place] [address] Care Team Providers Care Cnc Machine Setter Name Role Phone Seun NAYAK, Carri Ramírez Primary Care Provider Un available Kathrine Cheema Unavailable [phone] REASON FOR VISIT NS 09-07-24 Encounters Encounter Location Date Provider Diagnosis [facility] [address] [place] [address] 09/07/2024 Kathrine Cheema Plan Of Treatment Next Appt Details Provider Name:Kathrine armando, 01/25/2025 02:30:00 PM, [address] [place], [address], Progress Notes * Judie TOLLIVERB:[birth year] (69 yo F)Acc No.[id number]:09/07/2024 Patient:?Meena TOLLIVER :1955???Age:69 Y???Sex:Female Address:[address] [place] [address], [address], [place], [id number] * true * Date:? Generated for Printi daryl/Raheel/eTransmitting on:?01/10/2025 10:05 AM EDT
--- OUTSIDE RECORDS SUMMARY | 2025-01-10 10:05 | XMS_ITS | Encounter Summary ---
Author Organization [facility] Address [address] [place] [address] 7 [place] [address] Care Team Providers Care Cpo Name Role Phone Unavailable Primary Care Provider Unavailabl e Encounter Details Date Type Department Care Team (Late Contact Info) Description 11/01/2022 Abstract [facility] [address] [place] [address] [place] DDS [address] [place] [address] Social History Tobacco Use Types Packs/Day Years [...] 11:00 AM EDT Office Visit [facility] [address] [place] [address] Neha Felder DMD 01/21/2025 9:30 AM EDT Office Visit [facility] MED & PED[facility] [address] [place] [address] Hernan Urbina MD 505 [place], [place] [phone] 02/14/2025 10:00 AM EDT Office Visit [facility] [address] [place] [address] Domingo Spence documented as of this encounter Visit Diagnoses Not on filedocumented in this encounter
--- OUTSIDE RECORDS SUMMARY | 2025-01-10 10:05 | XMS_ITS | Encounter Summary ---
Author Organization [facility] [facility] Address [address] [place] [address] 7 [place] [address] Care Team Providers Care Field Horticultural Specialty Grower Name Role Phone Unavailable Primary Care Provider Unavailabl e Encounter Details Date Type Department Care Team (Latest Contact Info) Description 04/15/[address] [facility] CONVERSIONS Dental, Provider, DDS Social History [...] [facility] AD[facility] 505 [place] [address] Neha Felder DMD 01/21/2025 9:30 AM EDT Office Visit [facility] MED & PEDS 505 [place] [address] Hernan Urbina MD 505 [place] [address] 02/14/2025 10:00 AM EDT Office Visit [facility] ADULT [facility] 505 [place] [address] Domingo Spence documented as of this encounter Visit Diagnoses Not on filedocumented in this encounter
--- OUTSIDE RECORDS SUMMARY | 2025-01-10 10:05 | XMS_ITS | Encounter Summary ---
Author Organization [facility] [facility] Address [address] [place] [address] 7 [place] [address] Care Team Providers Care Rn Night Name Role Phone Unavailable Primary Care Provider Unavailabl e Encounter Details Date Type Department Care Team (Latest Contact Info) Description 04/14/2019 Abstract [facility] CONVERSIONS Dental, Provider, DDS Social History [...] [facility] AD[facility] [address] [place] [address] Neha Felder DMD 01/21/2025 9:30 AM EDT Office Visit [facility] MED & PEDS 505 [place] [address] Hernan Urbina MD [address] [place] [address] 02/14/2025 10:00 AM EDT Office Visit [facility] ADULT [facility] 505 [place] [address] Domingo Spence documented as of this encounter Visit Diagnoses Not on filedocumented in this encounter
--- OUTSIDE RECORDS SUMMARY | 2025-01-10 10:06 | XMS_ITS | Encounter Summary ---
Author Organization [facility] Address [address] 7t [place] [address] Care Team Providers Care Case Worker Name Role Phone Unavailable Primary Care [...] 11:00 AM EDT Office Visit [facility] ADULT [facility] [address] [place] [address] Neha Felder DMD 01/21/2025 9:30 AM EDT Office Visit [facility] MED & PEDS [address] [place], [place] [phone] Hernan Urbina MD 505 [place] [address] 02/14/2025 10:00 AM EDT Office Visit [facility] ADULT DENT[facility] [address] [place] [address] Domingo Spence documented as of this encounter Visit Diagnoses Not on filedocumented in this encounter Additional Health Concerns Assessment Noted Time PHQ-9 Depression Total Score: 2 12/21/19 25 8:57 AM EST documented as of this encounter
--- OUTSIDE RECORDS SUMMARY | 2025-01-10 10:06 | XMS_ITS | Encounter Summary ---
Author Organization [employer] Address [address] [facility] [address] 7t [place] [address] Care Team Providers Care Spa Consultant Name Role Phone Unavailable Primary Care Provider Unavailabl e Reason for Visit * Reason Onset Date Comments Appointment 05/20/2023 Encounter Details Date Type Department Care Team (Late st Contact Info) Description 05/20/2023 Telephone [facility] [address] [place] [address] [place], DDS [address] [facility] [place] [address] Appointment Social History Tobacco Use Types Packs/Day [...] Description 01/11/2025 11:00 AM EDT Office Visit [facility] ADULT D[facility] 505 [place] [address] Neha Felder DMD 01/21/2025 9:30 AM EDT Office Visit [facility] MED & PEDS 505 [place] [address] Hernan Urbina MD 505 [place] [address] 02/14/2025 10:00 AM EDT Office Visit [facility] ADULT DENTAL 505 [place] [address] Domingo Spence documented as of this encounter Visit Diagnoses Not on filedocumented in this encounter
--- OUTSIDE RECORDS SUMMARY | 2025-01-10 10:06 | XMS_ITS | Encounter Summary ---
Author Organization [employer] [facility] Address [address] [place] [address] 7 [place] [address] Care Team Providers Care Credit Administration Manager Name Role Phone Unavailable Primary Care Provider Unavailabl e Encounter Details Date Type Department Care Team (Latest Contact Info) Description 02/02/2021 Abstract [facility] CONVERSIONS Dental, Provider, DDS Social History [...] 01/11/2025 11:00 AM EDT Office Visit [facility] ADULT D[facility] 505 [place] [address] Neha Felder DMD 01/21/2025 9:30 AM EDT Office Visit [facility] MED & PEDS 505 [place] [address] Hernan Urbina MD 505 [place] [address] 02/14/2025 10:00 AM EDT Office Visit [facility] ADULT DENT[facility] 505 [place] [address] Domingo Spence documented as of this encounter Visit Diagnoses Not on filedocumented in this encounter
--- OUTSIDE RECORDS SUMMARY | 2025-01-10 10:06 | XMS_ITS | Encounter Summary ---
Author Organization [employer] [facility] Address [address] [place] [address] [address] [place] [address] Care Team Providers Care Environmental Health And Safety Leader Name Role Phone Unavailable Primary Care Provider [...] Description 01/11/2025 11:00 AM EDT Office Visit [facility] ADULT DENTAL 505 [place] [address] Neha Felder DMD 01/21/2025 9:30 AM EDT Office Visit [facility] MED & PEDS [address] [place] [address] Hernan Urbina MD 505 [place] [address] 02/14/2025 10:00 AM EDT Office Visit [facility] ADULT DENTAL [address] [place] [address] Domingo Spence documented as of this encounter Visit Diagnoses Not on filedocumented in this encounter
--- OUTSIDE RECORDS SUMMARY | 2025-01-10 10:06 | XMS_ITS | Encounter Summary ---
Author Organization [employer] Address [address] [facility] 7t [place] [address] Care Team Providers Care Banquet Kitchen Supervisor Name Role Phone Unavailable Primary Care Provider Unavailabl e Encounter Details Date Type Department Care Team (Late st Contact Info) Description 12/21/2024 9:00 AM EST Telemedicine [facility] MED & PEDS [address] [place] [address] MD 505 [place], [place] [phone] Encounter to establish care (Primary Dx); Chronic [...] Primary Last pcp visit 1 year at [facility] ER: November due to vaginal bleeding, back pain [facility]: 6 years ago due to MD s/p stent x2 Pmhx: DM, HTN, Cholesterol, MD s/p stent x2, CHF, atrial fibrillation Pshx: [...] Notes * Assessment & Plan Note - Herann Aaron MD - 12/21/2024 12:28 PM ESTAssociated Problem(s): Type 2 diabetes mellitus with diabetic peripheral angiopathy without gangrene, without long-term current use of insulin (CMS/HCC) On and * Assessment & Plan Note - Hernan Aaron MD - 12/21/2024 12:28 PM ESTAssociated Problem(s): Paroxysmal atrial fibrillation ([facility]/HCC) On , but she refers has been avoiding it due to hx of vaginal bleeding, risk were discussed with patient including having a stroke * Assessment & Plan Note - Hernan Aaron MD - 12/21/2024 12:17 PM ESTAssociated Problem(s): Chronic diastolic heart failure ([facility]/HCC) Followed by cardiology, no recent exacerbation or hospitalization * Assessment & Plan Note - Hernan Aaron MD - 12/21/2024 9:19 AM ESTAssociated Problem(s): Encounter to establish care Last pcp visit 1 year at [facility] ER: November due to vaginal bleeding, back pain [facility]: 6 years ago due to MD s/p stent x2 Pmhx: DM, HTN, Cholesterol, MD s/p stent x2, CHF, atrial fibrillation Pshx: rotary cuff left arm 2004, csec , hand CTS right 2004, right trigger finger 2009 Meds: as above documented in this encounter Plan of Treatment Upcoming Encounters Date Type Department Care Team (Late st Contact Info) Description 01/11/2025 11:00 AM EDT Office Visit [facility] ADULT DENT[facility] [address] [place] [address] Neha Felder DMD 01/21/2025 9:30 AM EDT Office Visit [facility] MED & PEDS [address] [place] [address] Hernan Urbina MD 505 [place] [address] 02/14/2025 10:00 AM EDT Office Visit [facility] ADULT DENTAL [address] [place] [address] Domingo Spence documented as of this encounter Visit Diagnoses Diagnosis Encounter to establish care- Primary Chronic diastolic heart failure (CMS/HCC) Chronic diastolic heart failure Paroxysmal atrial fibrillation (CMS/HCC) Atrial fibrillation Type 2 diabetes mellitus with diabetic peripheral angiopathy without gangrene, without long-term current use of insulin ([facility]/HCC) documented in this encounter Additional Health Concerns Assessment Noted Time PHQ-9 Depression Total Score: 2 12/21/19 25 8:57 AM EST documented as of this encounter
--- OUTSIDE RECORDS SUMMARY | 2025-01-10 10:06 | XMS_ITS | Encounter Summary ---
Author Organization [employer] [facility] Address [address] 7t [place] [address] Care Team Providers Care Plant Operations Engineer Name Role Phone Unavailable Primary Care Provider Unavailabl e Encounter Details Date Type Department Care Team (Late st Contact Info) Description 08/10/2024 Telephone [facility] ADULT DENT[facility] [address] [place], [place] [phone] Neha Felder DMD Social History Tobacco Use [...] [facility] ADULT D[facility] [address] [place] [address] Neha Felder DMD 01/21/2025 9:30 AM EDT Office Visit [facility] MED & PEDS [address] [place], [place] [phone] Hernan Urbina MD 505 [place] [address] 02/14/2025 10:00 AM EDT Office Visit [facility] ADULT DENTAL 505 [place] [address] Domingo Spence documented as of this encounter Visit Diagnoses Not on filedocumented in this encounter
--- OUTSIDE RECORDS SUMMARY | 2025-01-10 10:06 | XMS_ITS | Encounter Summary ---
Author Organization [facility] Address [address] [place] [address] 7 [place] [address] Care Team Providers Care Shake Cutter Name Role Phone Unavailable Primary Care Provider Unavailabl e Reason for Visit * Reason Comments Med Refill Encounter Details Date Type Department Care Team ([facility] Contact Info) Description 09/12/2023 Refill [facility] MED & PEDS [address] [place] [address] Christopher Spence MD 505 [place], [place] [phone] Social History Tobacco Use Types Packs/Day Years [...] Upcoming Encounters Date Type Department Care Team ([facility] Contact Info) Description 01/11/2025 11:00 AM EDT Office Visit [facility] ADULT DENTAL [address] [place] [address] Neha Felder DMD 01/21/2025 9:30 AM EDT Office Visit [facility] MED & PEDS [address] [place], [place] [phone] Hernan Urbina MD 505 [place] [address] 02/14/2025 10:00 AM EDT Office Visit [facility] ADULT DENTAL [address] [place] [address] Domingo Spence documented as of this encounter Visit Diagnoses Not on filedocumented in this encounter
--- OUTSIDE RECORDS SUMMARY | 2025-01-10 10:06 | XMS_ITS | Clinical Summary ---
Author Organization [facility] Address [address] [place] [address] Care Team Providers Care Planning Advisor Name Role Phone Unavailable Primary Care Provider [...] EST): Last pcp visit 1 year at [facility] ER: November due to vaginal bleeding, back pain [facility]: 6 years ago due to KS s/p stent x2 Pmhx: DM, HTN, Cholesterol, KS s/p stent x2, CHF, atrial fibrillation Pshx: [...] Team Description 12/21/2024 9:00 AM EST Telemedicine [facility] [address] [place] [address] Hernan Urbina MD Encounter to establish care (Primary Dx); Chronic diastolic heart failure (CMS/HCC); Paroxysmal atrial fibrillation (CMS/HCC); Type 2 diabetes mellitus with diabetic peripheral angiopathy without gangrene, without long-term current use of insulin (CMS/HCC) 12/21/2024 Travel 12/14/2024 Travel 12/09/2024 Travel 11/30/2024 Telephone [facility] [address] [place] [address] Neha Felder DMD 11/17/2024 1:00 PM EST Office Visit [facility] [address] [place] [address] Neha Felder DMD 11/17/2024 Telephone [facility] [address] [place] [address] Hernan Urbina MD Appointment 11/17/2024 Travel 11/16/2024 Orders Only [facility] [address] [place] [address] Neha Felder, GLORIA 11/15/2024 Telephone [facility] [address] [place] [address] Neha Felder, GLORIA 11/10/2024 Travel 11/01/2024 Telephone [facility] [address] [place] [address] Marcos Friedman MD New patient appt. 11/01/2024 Telephone [facility] [address] [place] [address] Marcos Friedman MD Appointment Request 10/12/2024 9:00 AM EST Office Visit [facility] [address] [place] [address] Neha Felder DMD from Last 3 Months [...] Office Visit [facility] [address] [place] [address] Neha Felder DMD 01/21/2025 9:30 AM EDT Office Visit [facility] [address] [place] [address] Hernan Urbina MD [address] [place] [address] 02/14/2025 10:00 AM EDT Office Visit [facility] [address] [place] [address] Domingo Spence Health Maintenance Due Date Last [...] to Health Maintenance Insurance MARIA E ESPOSITO [id number] [facility]
--- OUTSIDE RECORDS SUMMARY | 2025-01-10 10:06 | XMS_ITS | Data Portability ---
Author Organization [email or web address] [facility] [place] - Count includes the [facility] Address [address] [place] [phone] Care Team Providers Care Lace Mender Name Role Phone HIM CCA OTHER Assessment Encounter Date Assessment Date Assessment LastModified by Organization Details LastModified Time 03/08/2024 03/08/2024 I provided real -time medical direction via phone for this encounter, and was available for additional phone based assistance as needed. I have reviewed and agree with the Assessment and Plan as documented by the Twister Operator. We discussed the diagnostic uncertainty of home [...] to call 911- verbalized understanding of instruction [email or web address] Not available 03/08/2024 16:23:50 Plan of Treatment Reminders Order Date Submit Date Provider Last Modified By Organization Details Last Modified Time Details Appointments None recorded. Lab culture, urine 2023 024 [email or web address] [facility] (Centralized Electronic Ordering - All Locations), Patient Can Go To The Location Of Their Choice, [id number] 11:16:43 urinalysis , dipstick 2023 024 [email or web address] 0 [facility], [address] [place] [address], [phone], 4 15:54:29 glucose, fingerstic k, blood 2023 024 [email or web address] 0 [facility], [address] [place] [address], [phone], 4 15:55:15 BMP, serum or plasma 2023 024 [email or web address] 0 [facility], [address] [place] [address], [address], 17:20:49 Referral None recorded. Procedures None recorded. Surgeries None recorded. Imaging None recorded. Medication Orders Pyridium 100 mg tablet 2023 [id number], [address], [place], [id number], 16:23:58 Patient TargetsNo targets recorded. Patient InstructionsNo instructions recorded. Reason for Referral None Reported. Results Created Date Observation Date Name Description Value Unit Range Abnormal Flag Note LastModifiedBy Organization Detail LastModifiedTime 03/08/2003/08/2024 BMP, serum or plasm a GLU 293 Not Available [facility] [address] [place] [address], [phone], 03/08/2024 16:23:59 03/08/2003/08/2024 gluco se, finge rstic k, blood Blood Glucose: mg/dl 313 Not Available [facility] [address] [place] [address], [phone], 03/08/2024 15:54:50 03/08/20 24 03/08/2024 urina lysis , dipst ick Leukocytes neg Not Available [facility] [address] [place] [address], [phone], 03/08/2024 15:52:25 03/08/20 24 03/08/2024 urina lysis , dipst ick Nitrite negati ve Not Available [facility] [address] [place] [address], [phone], 03/08/2024 15:52:25 03/08/20 24 03/08/2024 urina lysis , dipst ick pH 5 Not Available [facility] [address], [address], 03/08/2024 15:52:25 03/08/20 24 03/08/2024 urina lysis , dipst ick Blood neg Not Available [facility] [address], [address], 03/08/2024 15:52:25 03/08/20 24 03/08/2024 urina lysis , dipst ick Specific Chicken 1.005 Not Available [facility] [address] [place] [address], [address], 03/08/2024 15:52:25 03/08/20 24 03/08/2024 urina lysis , dipst ick Ketone neg Not Available [facility] [address], [address], 03/08/2024 15:52:25 03/08/20 24 03/08/2024 urina lysis , dipst ick Glucose 3+ Not Available [facility] [address], [address], 03/08/2024 15:52:25 03/08/20 24 03/08/2024 urina lysis , dipst ick Appearance clear Not Available [facility] [address] [place] [address], [address], 03/08/2024 15:52:25 03/08/20 24 03/08/2024 urina lysis , dipst ick Color yellow Not Available [facility] [address], [address], 03/08/2024 15:52:25 Result Notes None recorded. Medical Equipment None Reported. Allergies Allergen ID Allergen Name Allergen Category Reaction Reaction Severity Criticality Documentation Date Start Date Code Code System Note Provider Name and Address Organization Details Recorded Time 5042 Oxycontin medicatio n Not available Not available Not available 03/08/2024 96684 6 RxNorm Not Available [facility] - production 4 13:38:50 5043 shrimp allergeni c extract food Not available Not available Not available 03/08/2024 81935 2 RxNorm Mercy Castillo MD [address] [facility],[address], [place], [address], [facility] 15:52:46 9967 metformin medicatio n Not available [...] Address Organization Details Last Updated DateTime 4 45957.1 44 g 98.2 [degF] 96 % 96 % 18 /min 149.86 cm 72 /min 146 mm[Hg] 81 mm[Hg] Not Available [facility] 4 15:50:30 Date Recorded Oxygen saturation Oxygen saturation in Arterial blood by Pulse oximetry Body temperature Heart rate Respiratory rate Systolic blood pressure Diastolic blood pressure Provider Name and Address Organization Details Last Updated DateTime 4 98 % 98 % 98.3 [degF] 106 /min 20 /min 180 mm[Hg] 92 mm[Hg] Not Available [facility] 4 15:59:56 Social History None recorded. Functional Status None recorded. Mental Status None recorded. Family History Nothing Reported. Medical History No medical history recorded. Gynecological HistoryNo gynecological history recorded. Obstetrics History GPAL:G 0 P 0 0 0 0 Past Encounters Encounter ID Performer Location Encounter Start Date Encounter Closed Date Diagnosis/Indication Diagnosis SNOMED-CT Code Diagnosis ICD10 Code Diagnosis Note [id number] Mercy Castillo MD [facility] [address] [place] [address] 03/08/2024 15:50:25 03/09/2024 11:54:56 Urinary symptoms 679397759 R39.9 No evidence of UTI based on dip she has glycosuria which could be causing the urgency and frequency- bmp ordered- nl renal function/ stable H & H.Will send urine culture and will call if UC positive for infection. Pat request Rx to go to [address] in [place]- made aware of Good RX card to defray cost - also have otc version- advised will turn urine bright orangey red- can stain underwear/ advised wearing pad for 3 -4 days PC team: Had bagels and grapes today- needs dietary consult re lower glycemic index foods- medic attempted to explain [id number] LYUDMILA DAMIAN MD [facility] [address] [place] [phone] 09/02/2024 15:51:56 09/02/2024 21:41:56 Pain in right hip joint [id number] 76512 M25.551 Evaluation in the field was performed by my pottery decorator colleague, as noted above, I provided real-time [...] and treatment. -An expect was called at [facility] Primary care, consider__ _ Dispositio n:We discussed the situation and I recommende d referral to the emergency department . An expect was called at [facility] Concerns Section Related Observation LastModified by Organization Detai ls LastModified Time None Recorded Concern Status LastModified by Organization Details LastModified Time None Recorded Advance Directives Directive None Recorded Payers Encounter Date Sequence Insurance Name Policy Number Policy Meza Covered Member ID Meza Member ID Guarantor Name 03/08/2024 1 [facility] - DOS ON OR AFTER 2023 - DUAL ELIGIBLE - FPC OPTIONS AND ONE CARE (MEDICARE REPLACEMENT/ADV ANTAGE - HMO) Meena Hidalgo [id number] Meena Hidalgo 09/02/2024 1 [facility] - DOS ON OR AFTER 2023 - DUAL ELIGIBLE - FPC OPTIONS AND ONE CARE (MEDICARE REPLACEMENT/ADV ANTAGE - HMO) Meena Hidalgo [id number] Meena Hidalgo Notes Date Note Type Note [...] UTI/Pyelonephritis , Abdominal Pain Allergies: Unknown Comments: Boat Garnisher verified the member's name//address and phone number. [...] - S/S for 3 days. Wellness check. Twister Operator POC Test Results from [facility] - [...] .................. .................. .................. .................. .................. .................. ............... Twister Operator Note From [facility]: Sent to a [...] she has history of diabetes, CHF, and NC. Pt states she takes Farxiga, Januvia, and Glipizide. Pt also takes Eliquis. Pt reports allergy to Oxycontin, causing hallucinations. BP:146/81, P:72, RR:18, SpO2:96% RA, T:98.2, B; Head: unremarkable; Lung sounds: clear bilaterally; Abdomen: soft, non-tender, distention; Back: no CVA tenderness; Extremities: no peripheral edema; Skin: pink, warm, dry; Urine sample obtained: yellow, clear, concentrated; Urine dip results: uploaded to [employer]. [facility] consulted and orders POC bloodwork and urine culture to be sent to [facility]. Venous blood draw performed; Istat Chem8+ results: uploaded to [employer]. [facility] sends script to pt's pharmacy for pyridium. [...] ............... Disposition: Fulfilled Mercy Castillo MD [address] [facility],[address], [place], [address], [facility] [place] 03/08/2024 17:20:55 09/02/2024 text/html HPI: Mbr called [...] .................. .................. .................. .................. .................. .................. ............... Twister Operator Note From Arjun Hubbard: Dispatched to the [...] afebrile, mucous membranes pink and moist, -edema, [facility] consulted. 911 called on behalf of the Pt, [employer] transported Pt to [facility]. ALL times are approx. .................. .................. .................. .................. .................. .................. .................. ............... [facility] Consulted: Lyudmila Damian .................. .................. .................. .................. .................. .................. .................. ............... Disposition: Sarah DAMIAN MD [address] [place] [address],[address] [facility], [place], [address], [employer] 09/02/2024 19:04:26 OBGyn Episode No OBEpisode recorded.
[2025-01-10 17:29] LABS: Urine Cytology See Pathology rpt
== END 2025-01-10 09:03 | disposition home or self-care (01) ==
LOC: HO.LNP 09:02
PROVIDERS: PCP Internal Medicine; Visit Provider Nurse Practitioner Family
DX: N32.89 Other specified disorders of bladder (principal); R31.29 Other microscopic hematuria; R31.0 Gross hematuria
CPT/HCPCS: 81003; 88112; 99202

== ENCOUNTER 2025-01-21 10:29 | Outpatient (REF) | payer OTHER, SELFPAY ==
[2025-01-21 14:11] LABS: MANUAL DIFF FLAG NO
[2025-01-21 14:20] LABS: Basophils Percent Auto 0.2 % (0-2); Eosinophils Absolute Auto 0.1 X10*3/uL (0.0-0.4); Eosinophils Percent Auto 1.7 % (0-4); Hematocrit 43.4 % (37.0-47.0); Hemoglobin 14.5 g/dl (12.0-16.0); Imm Gran Abs Auto 0.01 X10*3/uL (0.00-0.03); Imm Gran Pct Auto 0.2 % (0.0-0.4); Lymphocytes Absolute Auto 1.1 X10*3/uL (1.2-4.9); Lymphocytes Percent Auto 22.5 % (20-40); Mean Corpuscular HGB Conc 33.4 g/dl (31.0-35.0); Mean Corpuscular Hemoglobin 30.6 pg (27.0-33.0); Mean Corpuscular Volume 91.6 fL (80.0-98.0); Mean Platelet Volume 11.5 fL (9.4-12.3); Monocytes Absolute Auto 0.4 X10*3/uL (0.1-1.2); Monocytes Percent Auto 8.8 % (2-11); Neutrophils Absolute Auto 3.2 x10*3/uL (2.0-8.3); Neutrophils Percent Auto 66.6 % (45-73); Platelet Count 234 X10*3/uL (160-400); Red Blood Count 4.74 X10*6/uL (4.20-5.50); Red Cell Distribution Width 11.4 % (11.0-16.0); White Blood Count 4.8 X10*3/uL (4.8-10.8)
[2025-01-21 14:45] LABS: Alanine Aminotransferase 22 U/L (0-31); Albumin Level 4.5 g/dL (3.5-5.0); Alkaline Phosphatase 83 U/L (39-117); Anion Gap 12 (12-20); Aspartate Amino Transferase 21 U/L (5-31); Bilirubin Total 0.8 mg/dL (0.0-1.0); Blood Urea Nitrogen 19 mg/dL (9-16); Carbon Dioxide 28 mmol/L (22-29); Chloride 103 mmol/L (96-108); Cholesterol 332 mg/dL (<200); Estimated Glomerular Filt Rate > 60; Glucose Random 209 mg/dL (60-115); HDL Cholesterol 54 mg/dL (>40); LDL Cholesterol Calculated 247 mg/dL (<100); Potassium 4.4 mmol/L (3.3-5.1); Sodium 139 mmol/L (135-145); Total Protein 8.2 g/dL (6.5-8.0); Triglycerides 159 mg/dL (<150)
[2025-01-21 14:50] LABS: Creatinine Urine 72.43 mg/dL; Microalbum/Creatinine Ratio Ur 37.2 ug/mg cr (<30)
[2025-01-21 15:03] LABS: TSH reflex Free T4 0.75 uIU/mL (0.32-4.0)
[2025-01-24 04:14] LABS: HIV AB/AG Nonreactive (Nonreactive); HIV Num 1 0.06 S/CO (0.00-0.99); ~Hepatitis C Antibody Nonreactive (Nonreactive)
== END 2025-01-21 10:30 | disposition home or self-care (01) ==
LOC: HO.CHCLDS 10:29
PROVIDERS: Visit Provider Internal Medicine
DX: E11.51 Type 2 diabetes mellitus with diabetic peripheral angiopathy without gangrene (principal)
CPT/HCPCS: 36415; 80053; 80061; 82043; 82570; 84443; 85025; 86803; 87389

== ENCOUNTER 2025-01-28 08:50 | Outpatient (REF) | payer OTHER, SELFPAY ==
--- NOTE | ~2025-01-28 | CT_ITS ---
EXAMINATION: CT ABDOMEN PELVIS UROGRAPHY WITHOUT THEN WITH IV CONTRAST HISTORY: N32.89 - Other specified disorders of bladder COMPARISON: Comparison is made with the prior examination dated 10/02/2012. Correlation is also made with a pelvic ultrasound dated 11/06/2024. TECHNIQUE: CT scan of the abdomen and pelvis was performed before and after the intravenous administration of 85 mL Omnipaque 350. Postcontrast images were obtained using a split bolus technique. Coronal and sagittal reformatted images were generated and reviewed. Oral contrast material was not administered per department protocol. This CT exam was performed with one or more of the following dose reduction techniques: automated exposure control, adjustment of the mA and/or kV according to patient size, use of iterative reconstruction technique. DLP: 466 mGy-cm ABDOMEN: LOWER CHEST: The visualized lung bases are clear. There is no pleural effusion. CARDIOVASCULATURE: The heart is normal in size. There is no pericardial effusion. LIVER: The liver is normal in size and contour, but demonstrates heterogeneously decreased attenuation consistent with steatosis. There is focal fatty sparing in the left lobe and adjacent to the gallbladder. No liver mass is identified. The hepatic and portal veins are patent. GALLBLADDER / BILE DUCTS: The gallbladder is unremarkable. There is no intra or extrahepatic biliary ductal dilatation. SPLEEN: The spleen is normal in size. No focal splenic lesion is identified. PANCREAS: The pancreas is unremarkable in appearance. ADRENAL GLANDS: Within normal limits. KIDNEYS/RETROPERITONEUM: There is a 2-3 mm nonobstructing calculus in an interpolar calyx of the right kidney. No left renal calculi are identified. There is no hydronephrosis or hydroureter. There is a 10 mm cyst at the lower pole of the left kidney. The ureters are normal in caliber. No ureteral calculi or filling defects are identified. LYMPH NODES: No abdominal or pelvic lymphadenopathy. VASCULATURE: The abdominal aorta demonstrates atherosclerotic calcification, but is normal in caliber. MESENTERY/PERITONEUM: No free fluid. No masses. There is no free intraperitoneal gas. STOMACH: The stomach is unremarkable. SMALL BOWEL: The small bowel is normal in caliber. COLON: There are scattered diverticuli of the sigmoid colon, without evidence of diverticulitis. APPENDIX: Normal. URINARY BLADDER/PELVIC ORGANS: As seen on ultrasound, there is a 1.7 cm polypoid mass along the left posterior wall of the urinary bladder. There is a 5.2 cm mass in the fundus of the uterus on the right consistent with a fibroid. This contains small calcifications. BONES / SOFT TISSUES: No suspicious bony or soft tissue abnormalities. CT/CT urogram IMPRESSION: 1. 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 2. 5.2 cm right fundal fibroid. 3. 2-3 mm nonobstructing calculus in the interpolar calyx of the right kidney. 3. Heterogeneous hepatic steatosis. Electronically signed by: Cabrera Marie MD 01/28/2025 09:57 AM EDT
[2025-01-28] MEDS: iohexoL 350 MG/ML 75 ML INFUS..BTL 85 ML IV (09:39)
[2025-01-28 10:05] LABS: Blood Urea Nitrogen 23 mg/dL (9-16); Estimated Glomerular Filt Rate > 60
== END 2025-01-28 08:51 | disposition home or self-care (01) ==
LOC: HO.CT 08:50
PROVIDERS: PCP Internal Medicine; Visit Provider Nurse Practitioner Family
DX: N32.89 Other specified disorders of bladder (principal); R39.15 Urgency of urination
CPT/HCPCS: 36415; 74178; 82565; 84520; Q9967

== ENCOUNTER → 2025-01-28 08:58 | Outpatient (BNV) | payer OTHER, SELFPAY | PROVIDERS: PCP Internal Medicine; Visit Provider Radiology Diagnostic Radiology | DX: N32.89 Other specified disorders of bladder (principal) | CPT/HCPCS: 74178 ==

== ENCOUNTER 2025-02-09 10:05 | Emergency (ER) | payer OTHER, SELFPAY ==
[2025-02-09 10:15] VITALS: BP 128/81; PULSE 81; RESP 18; TEMP 36.8; O2SAT 95; BMI 26.0
[2025-02-09 10:37] LABS: MANUAL DIFF FLAG NO
--- NOTE | 2025-02-09 10:37 | ED_ITS ---
HPI - General Adult General Chief complaint: Abdominal Pain Stated complaint: blood clots / ran test last month for same Time Seen by Provider: 02/09/25 10:36 Source: patient Mode of arrival: ambulatory Limitations: no limitations History of Present Illness ED Provider: Michelle Wallace PA-C HPI narrative: 70 year old female with PMHx postmenopausal bleeding, mixed urinary incontinence, asthma, DM, CAD, HTN, HLD, and paroxysmal afib presenting to the ED c/o painless hematuria x 1y+. Reports bright red blood in her urine with intermittent mild lower abd cramping relived with urination. 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 Reports she has follow up with urology regarding scan results and a biopsy scheduled on 02/22/25, however the bleeding has been getting worse and somewhat intolerable. Denies fever, weight loss, CP, SOB, N/V/D, change in bowel habits, dysuria, increased urinary urgency/frequency, numbness/tingling. Denies trauma, irritation, lesions, pruritus to genital area. Onset (ago): year(s) (1) Exacerbating factors: none Associated symptoms: denies other symptoms Related Data Home Medications ?Medication ?Instructions ?Recorded ?Confirmed lancets 28 gauge (FreeStyle #100 ea 08/03/20 01/10/25 Lancets) metoprolol succinate 200 mg 200 mg PO DAILY 06/26/21 01/10/25 tablet,extended release 24 hr nitroglycerin 0.4 mg sublingual 0 mg sublingual 09/19/22 01/10/25 tablet multivitamin 1 tab PO DAILY 10/07/23 01/10/25 artificial drp ophthalmic (eye) 09/23/24 01/10/25 tears(vgdqwxn-nyvxvsnk-houlmic) 0.1 %-0.3 %-0.2 % eye drops celecoxib 100 mg capsule (Celebrex) 100 mg PO DAILY PRN 10/15/24 01/10/25 Previous Rx's ?Medication ?Instructions ?Recorded blood sugar diagnostic (FreeStyle 1 strip miscellaneous BID for 06/18/22 Lite Strips) diabetes mellitus #100 strips rosuvastatin 5 mg tablet 5 mg PO DAILY #30 tabs 04/29/23 fluticasone propionate 110 1 puff inhalation Q12H #12 grams 12/11/23 mcg/actuation HFA aerosol inhaler lisinopril 5 mg tablet 5 mg PO DAILY #90 tabs 02/27/24 docusate sodium 100 mg capsule 100 mg PO DAILY #90 caps 07/13/24 albuterol sulfate 90 mcg/actuation 2 puff inhalation Q6H PRN 08/27/24 aerosol inhaler shortness of breath or wheezing #8.5 grams acetaminophen 500 mg tablet 500 mg PO Q6H PRN fever or pain 09/06/24 (Tylenol Extra Strength) #14 tabs cyclobenzaprine 5 mg tablet 5 mg PO BID PRN pain (scale score 09/10/24 7-10) #30 tabs dapagliflozin propanediol 10 mg 10 mg PO QAM #90 tabs 10/15/24 tablet (Farxiga) repaglinide 2 mg tablet 2 mg PO TID #90 tabs 10/15/24 sitagliptin phosphate 100 mg 100 mg PO DAILY #30 tabs 10/15/24 tablet (Januvia) lorazepam 1 mg tablet (Ativan) 1 mg PO ONCE anxiety #1 tab 11/11/24 mirabegron 25 mg tablet,extended 25 mg PO DAILY #30 tabs 12/13/24 release 24 hr (Myrbetriq) ezetimibe 10 mg tablet 10 mg PO DAILY #90 tabs 12/16/24 hydroxyzine HCl 10 mg tablet 10 mg PO .qd PRN hives #30 tabs 12/24/24 Allergies Allergy/AdvReac Type Severity Reaction Status Date / Time atorvastatin [From LIPITOR] AdvReac Intermediate STOMACH Verified 02/09/25 10:17 ACHE oxycodone [From OXYCONTIN] AdvReac Intermediate SENSORY Verified 02/09/25 10:17 HALLUCINATIONS sulfamethoxazole AdvReac Intermediate chills Verified 02/09/25 10:17 [From Bactrim] vitamin d AdvReac Intermediate Hallucinati Uncoded 01/10/25 09:17 ons Review of Systems 2 Constitutional: Constitutional: Reports no additional constitutional complaints, Denies chills, Denies fever(s), Denies headache(s), Denies night sweats and Denies weight loss Eyes: Eyes: Reports no additional eye complaints, Denies blurry vision, Denies change in vision, Denies diplopia, Denies eye discharge, Denies loss of vision and Denies eye pain ENT: Denies dizziness and Denies headache(s) Cardiovascular: Cardiovascular: Reports no additional cardiovascular complaints, Denies chest pain, Denies syncope, Denies leg edema, Denies lightheadedness and Denies Loss of Consciousness Respiratory: Respiratory: Reports no additional respiratory complaints and Denies chest congestion Gastrointestinal: Gastrointestinal: Reports no additional gastrointestinal complaints, Denies abdominal pain, Denies melena, Denies hematochezia, Denies change in bowel habits, Denies change in stool character, Denies diarrhea, Denies nausea and Denies vomiting Comments: Reports BM daily, last BM yesterday night. Genitourinary: Genitourinary: Reports hematuria, Denies urinary frequency, Denies difficulty voiding, Denies genital pruritis, Denies genital lesions, Denies dysuria, Denies urinary incontinence, Denies urinary hesitancy, Denies urinary urgency and Denies vaginal pruritus Comments: Reports has been post menopausal about 10y. Musculoskeletal: Musculoskeletal: Reports no additional musculoskeletal complaints, Denies numbness and Denies tingling Neurologic: Denies dizziness, Denies syncope, Denies headache(s), Denies loss of vision, Denies numbness and Denies tingling Psychiatric: Psychiatric: Reports no additional psychiatric complaints Endocrine: Endocrine: Reports no additional endocrine complaints Hematologic/Lymphatic: Hematologic/Lymphatic: Reports no additional hematologic/lymphatic complaints Allergic/Immunologic: Allergic/Immunologic: Reports no additional allergic/immunologic complaints [facility] Past Medical History Attestation statement: The following information was validated with the patient. Source: old records reviewed and nursing notes reviewed Medical History Metformin adverse reaction Urinary incontinence, mixed Oropharyngeal dysphagia COVID-19 vaccination refused Refused influenza vaccine Diabetes mellitus with hyperglycemia, without long-term current use of insulin Anxiety as acute reaction to gross stress Mild intermittent asthma in adult without complication OAB (overactive bladder) Diabetes mellitus with microalbuminuria, without long-term current use of insulin Osteoarthritis, knee History of depression Osteopenia after menopause Overweight Varicose veins of right lower extremity History of ST elevation myocardial infarction (STEMI) Coronary artery disease involving [place] coronary artery Hypertension Refused pneumococcal vaccination Dyslipidemia Surgical History History of section Hx of myomectomy S/P left rotator cuff repair History of heart artery stent Family History Family History Father No problems noted. Mother No problems noted. 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 Current occupational exposures/hazards: No Cognitive needs: No Hearing needs: No Vision needs: Yes Physical Exam ED Vital Signs: Vital Signs - 24 hr 02/09/25 10:15 02/09/25 11:32 Temperature 98.3 F 98.3 F Pulse Rate 81 81 Respiratory Rate 18 18 Blood Pressure 128/81 128/81 Pulse Oximetry 95 95 Oxygen Delivery Method Room Air Room Air BMI result Body Mass Index 26.0 Const General: cooperative, no acute distress, alert and awake Nutritional Appearance: well nourished Orientation/consciousness: patient oriented x3 Limitations: no limitations HENMT Head: Yes normal to inspection and Yes atraumatic Ears: hearing grossly normal bilaterally and external ears normal General nose exam: Normal external nose present, no nasal discharge noted and no epistaxis Face and sinus: Yes normal facial exam, No abrasion and No laceration Mouth: Normal oral and palatal mucosa present, no drooling and no muffled voice Eyes General: appearance normal, both eyes and all related structures Periorbital: periorbital findings normal Eyelids: Yes eyelids normal Conjunctivae: conjunctivae normal Pupils: Equal, round and reactive pupils present EOM: EOMs intact bilaterally Neck Neck: Yes normal visual inspection, Yes full ROM and Yes no lymphadenopathy Chest Chest palpation & inspection: normal inspection of the chest Resp Effort & Inspection: normal respiratory effort and able to speak in complete sentences Cardio Rate: regular rate Rhythm: regular rhythm GI Inspection: Yes normal to inspection, No abdominal wall ecchymosis and No distended Palpation (GI): Soft to palpation, not firm, nontender, no guarding and not rigid Auscultation: normal bowel sounds Neuro General: patient oriented x3, moves all extremities and CN's II-XI intact bilaterally Cranial nerves: Yes Equal, round and reactive pupils present Cognition (Neuro): normal cognition Extrem General: Yes normal to inspection, Yes full ROM and Yes capillary refill normal Psych Appearance: grossly normal Mental Status: mental status grossly normal Affect: normal affect Attitude: cooperative Thought process: Normal thought process present Thought content: Normal thought content present Insight: Good insight present (Psych) Medical Decision Making Medical Decision Making MDM Narrative: Patient is a 70 year old assigned female at with a history of postmenopausal bleeding, mixed urinary incontinence, asthma, DM, CAD, HTN, HLD, and paroxysmal afib presenting to the emergency department today with blood in her urine. Patient's physical exam was unremarkable. Patient's blood work was unremarkable. Patient's urine showed evidence of gross hematuria. Patient's CT urogram on 01/28/2025 showed evidence of a bladder mass / possible neoplasm. I spoke with the Urology team who recommended patient follow up on an outpatient basis as scheduled for biopsy and cystoscopy. Patient's clinical presentation is consistent with continued hematuria seconadry to a bladder mass. Patient has no evidence of anemia. I explained my physical exam findings as well as all test results to the patient. I answered all questions asked by the patient. I stressed the importance of the patient taking her medication as directed (either prescribed or as the over the counter packaging recommends). I stressed the importance of the patient following up with her primary care provider and the urology team as scheduled. I stressed the importance of the patient returning to the emergency department immediately if her symptoms were to worsen or if she were to develop any dizziness, shortness of breath, difficulty breathing, chest pain, blurry vision, loss of vision, nausea, vomiting, abdominal pain, fever, chills, back pain, or any other complaints. Patient verbalized agreement and understanding with this treatment plan and discharge. Differential Diagnosis Differential Diagnoses: The differential diagnosis associated with the presentation includes Bladder mass Hematuria Admission/Observation Consideration of admission/observation: Escalation of care including admission/observation considered Patient would have been admitted to the hospital had her work up had any findings where hospital admission was appropriate and her clinical presentation warranted hospital admission. Consult Healthcare Provider Management of the patient was discussed with: Roll Forming Machine Set Up Mechanic (spoke with the urology team as noted in the MDM Rationale portion of this note. ) Lab Data [facility] Lab Attestation statement: I reviewed the patient's lab results. My interpretation of these results are in the MDM Rationale portion of this note. 02/09/25 10:31 02/09/25 10:31 Labs: Lab Results 02/09/25 Range/Units 10:31 WBC 4.8 (4.8-10.8) X10*3/uL RBC 4.48 (4.20-5.50) X10*6/uL Hgb 13.6 (12.0-16.0) g/dl Hct 40.6 (37.0-47.0) % MCV 90.6 (80.0-98.0) fL MCH 30.4 (27.0-33.0) pg MCHC 33.5 (31.0-35.0) g/dl RDW 11.6 (11.0-16.0) % Plt Count 253 (160-400) X10*3/uL MPV 10.2 (9.4-12.3) fL Immature Gran % (Auto) 0.4 (0.0-0.4) % Neut % (Auto) 60.3 (45-73) % Lymph % (Auto) 25.0 (20-40) % [place] % (Auto) 11.6 H (2-11) % Eos % (Auto) 2.5 (0-4) % Baso % (Auto) 0.2 (0-2) % Lymph # (Auto) 1.2 (1.2-4.9) X10*3/uL [place] # (Auto) 0.6 (0.1-1.2) X10*3/uL Eos # (Auto) 0.1 (0.0-0.4) X10*3/uL Baso # (Auto) 0.0 (0.0-0.2) X10*3/uL Abs Immat Gran (auto) 0.02 (0.00-0.03) X10*3/uL Absolute Neuts (auto) 2.9 (2.0-8.3) x10*3/uL Absolute Nucleated RBC 0.000 (0.0-0.012) X10*3/uL Nucleated RBC % (auto) 0.0 (0.0-0.2) /100WBC Sodium 140 (135-145) mmol/L Potassium 4.4 (3.3-5.1) mmol/L Chloride 104 (96-108) mmol/L Carbon Dioxide 29 (22-29) mmol/L Anion Gap 11 L (12-20) BUN 25 H (9-16) mg/dL Creatinine 0.78 (0.5-1.4) mg/dL Estim Creat Clear Calc 53.0 Estimated GFR > 60 Random Glucose 148 H (60-115) mg/dL Calcium 10.1 (8.4-10.2) mg/dL Total Bilirubin 0.7 (0.0-1.0) mg/dL AST 23 (5-31) U/L ALT 22 (0-31) U/L Alkaline Phosphatase 79 (39-117) U/L Total Protein 7.7 (6.5-8.0) g/dL Albumin 4.5 (3.5-5.0) g/dL Urine Color Red A Urine Appearance Turbid Urine pH 6.0 (5.0-9.0) Ur Specific [employer] >= 1.030 H (1.005-1.025) Urine Protein 300 (3+) H (Neg-Trace) mg/dL Urine Glucose (UA) 500 H (Negative) mg/dL Urine Ketones Negative (Negative) mg/dL Urine Blood Large (3+) H (Negative) Urine Nitrite Negative (Negative) Ur Leukocyte Esterase Negative (Negative) Urine RBC >20 H (0-2) /HPF Urine WBC 0-5 (0-5) /HPF Ur Squamous Epith Cells 0-2 (0-2) /HPF Urine Bacteria None Seen (None Seen) Hyaline Casts 0-2 (0-2) /LPF Critical Care Time Critical Care Time Critical Care Time: Yes Total Critical Care Time: 33 Attestation: I spent 33 minutes of Critical Care Time with this patient. This does not include time spent on separately reported billable procedures. Discharge Plan Discharge Clinical Impression: Hematuria, Bladder mass Patient Disposition: Home, Self-Care Instructions: Hematuria (ED) Additional Instructions: Your work up today was reassuring that there is no emergent cause for your symptoms. Your symptoms are likely coming from the bladder mass you are already aware of. It is crucial you follow up with the urology team about this. Follow up with your primary care provider. Return to the emergency department immediately if your symptoms worsen or if you develop any numbness, tingling, dizziness, shortness of breath, difficulty breathing, chest pain, blurry vision, loss of vision, nausea, vomiting, abdominal pain, fever, chills, back pain, or any other complaints. Prescriptions: No Action FreeStyle Lite Strips Strip 1 strip miscellaneous BID Qty: 100 0RF fluticasone propionate 110 mcg/actuation HFA aerosol inhaler 1 puff inhalation Q12H Qty: 12 1RF Rx Instructions: rinse and gargle mouth after use lisinopril 5 mg tablet 5 mg PO DAILY Qty: 90 0RF docusate sodium 100 mg capsule 100 mg PO DAILY Qty: 90 1RF mirabegron [Myrbetriq] 25 mg tablet extended release 24 hr 25 mg PO DAILY Qty: 30 1RF ezetimibe 10 mg tablet 10 mg PO DAILY Qty: 90 1RF hydroxyzine HCl 10 mg tablet 10 mg PO .qd PRN (Reason: hives) Qty: 30 1RF acetaminophen [Tylenol Extra Strength] 500 mg tablet 500 mg PO Q6H PRN (Reason: fever or pain) Qty: 14 0RF albuterol sulfate 90 mcg/actuation HFA aerosol inhaler 2 puff inhalation Q6H PRN (Reason: shortness of breath or wheezing) Qty: 8.5 0RF nitroglycerin 0.4 mg tablet, sublingual 0 mg sublingual (DME) lancets [FreeStyle Lancets] 28 gauge misc See Rx Instructions .ROUTE .MEDSUPPLY Qty: 100 Rx Instructions: As directed rosuvastatin 5 mg tablet 5 mg PO DAILY Qty: 30 5RF metoprolol succinate 200 mg tablet extended release 24 hr 200 mg PO DAILY multivitamin Tablet 1 tab PO DAILY cyclobenzaprine 5 mg tablet 5 mg PO BID PRN (Reason: pain (scale score 7-10)) Qty: 30 0RF lorazepam [Ativan] 1 mg tablet 1 mg PO ONCE Qty: 1 0RF Rx Instructions: Take 30 minutes prior to arrival to procedure celecoxib [Celebrex] 100 mg capsule 100 mg PO DAILY PRN repaglinide 2 mg tablet 2 mg PO TID Qty: 90 1RF Rx Instructions: administer within 30 minutes of a meal or snack Farxiga 10 mg tablet 10 mg PO QAM Qty: 90 1RF Januvia 100 mg tablet 100 mg PO DAILY Qty: 30 2RF artificial tear(lywzy-uwd-cyv) 0.1-0.3-0.2 % drops ophthalmic (eye) Referrals: [facility] [Provider Group] Hernan Urbina MD [Primary Care Provider] - Interventions: ED Discharge Assessment Last Done: 02/09/25 11:32 Discharge Date/Time: 02/09/25 11:33 Print Language: [place]
[2025-02-09 10:43] LABS: Basophils Percent Auto 0.2 % (0-2); Eosinophils Absolute Auto 0.1 X10*3/uL (0.0-0.4); Eosinophils Percent Auto 2.5 % (0-4); Hematocrit 40.6 % (37.0-47.0); Hemoglobin 13.6 g/dl (12.0-16.0); Imm Gran Abs Auto 0.02 X10*3/uL (0.00-0.03); Imm Gran Pct Auto 0.4 % (0.0-0.4); Lymphocytes Absolute Auto 1.2 X10*3/uL (1.2-4.9); Mean Corpuscular HGB Conc 33.5 g/dl (31.0-35.0); Mean Corpuscular Hemoglobin 30.4 pg (27.0-33.0); Mean Corpuscular Volume 90.6 fL (80.0-98.0); Mean Platelet Volume 10.2 fL (9.4-12.3); Monocytes Absolute Auto 0.6 X10*3/uL (0.1-1.2); Monocytes Percent Auto 11.6 % (2-11); Neutrophils Absolute Auto 2.9 x10*3/uL (2.0-8.3); Neutrophils Percent Auto 60.3 % (45-73); Platelet Count 253 X10*3/uL (160-400); Red Blood Count 4.48 X10*6/uL (4.20-5.50); Red Cell Distribution Width 11.6 % (11.0-16.0); White Blood Count 4.8 X10*3/uL (4.8-10.8)
[2025-02-09 10:55] LABS: Appearance Urine Turbid; Glucose Urine UA 500 mg/dL (Negative); Leukocyte Esterase Urine Negative (Negative); Nitrite Urine Negative (Negative); Specific Gravity - Urine >= 1.030 (1.005-1.025); UMIC TRIGGER UACC YES; Urine Blood Large (3+) (Negative); Urine Ketones Negative (Negative); Urine Protein 300 (3+) mg/dL (Neg-Trace)
[2025-02-09 10:56] LABS: Alanine Aminotransferase 22 U/L (0-31); Albumin Level 4.5 g/dL (3.5-5.0); Alkaline Phosphatase 79 U/L (39-117); Anion Gap 11 (12-20); Aspartate Amino Transferase 23 U/L (5-31); Bilirubin Total 0.7 mg/dL (0.0-1.0); Blood Urea Nitrogen 25 mg/dL (9-16); Calcium 10.1 mg/dL (8.4-10.2); Carbon Dioxide 29 mmol/L (22-29); Chloride 104 mmol/L (96-108); Estimated Glomerular Filt Rate > 60; Glucose Random 148 mg/dL (60-115); Potassium 4.4 mmol/L (3.3-5.1); Sodium 140 mmol/L (135-145); Total Protein 7.7 g/dL (6.5-8.0)
[2025-02-09 10:57] LABS: Color Urine Red
[2025-02-09 11:05] LABS: Bacteria Urine None Seen (None Seen); Hyaline Casts Urine 0-2 /LPF (0-2); RBC Urine >20 /HPF (0-2); Squamous Epithelial Cell Urine 0-2 /HPF (0-2); WBC Urine 0-5 /HPF (0-5)
[2025-02-09 11:32] VITALS: BP 128/81; PULSE 81; RESP 18; TEMP 36.8; O2SAT 95
--- OUTSIDE RECORDS SUMMARY | 2025-02-09 13:00 | XMS_ITS | Patient Health Record ---
[facility] Address [address] [place] [address] Care Team Providers Care Business Insight And Analytics Manager Name Role Phone Hernan Wasserman Primary Care Provider Unavailable Kathrine Cheema Unavailable [phone] Allergies Allergen (clinical drug ingredient) Drug/Non Drug Allergy documented on EMR Reaction Allergy Type Onset Date Status oxycodone OxyContin hallucination Drug Allergy Act leif shrimp allergenic extract Shrimp (Diagnostic) Unknown Drug Allergy Active Shellfish (FN) Shellfish-derived Products Unknown Drug Allergy Active vitamin D Vitamin D hallucinations Drug Allergy Ac tive Results Component Value Reference Range Notes HEMOGLOBIN A1C (GLYCOHEMOGLO BIN) Reviewed date:01/25/2025 02:47:01 PM Interpretation: Performing Lab: Notes/Report: HEMOGLOBIN A1C % (HH) 7.2 Reason For Referral No Information Medications Medication SIG (Take, Route, Frequency, Duration) Notes Start Date End Date Status hydrOXYzine HCl 10 MG Oral for 30 Active Cyclobenzaprine HCl 10 MG 1 tablet as ne eded Orally Three times a day Not-Taking Acetaminophen 325 MG 1 tablet as needed Orally every 4 hrs Not-Taking Januvia 100 MG Oral for 30 Act leif Repaglinide 2 MG TAKE ONE TABLET BY MOUTH THREE TIMES DAILY 30 MINUTES BEFORE A MEAL OR SNACK Oral for 30 Active Methylprednisolone N ot-Taking Gabapentin Not-Takin g Vitamin D3 2000 UNIT 1 capsule Orally On ce a day for 30 day(s) Not-Taking Ammonium Lactate 12 % 1 application to affected area Externally to feet Twice a day for 30 days Not-Taking Lisinopril Not-Takin g Brilinta 90 MG 1 tablet Orally Twic e a day for 30 day(s) Not-Taking CeleBREX Active Rosuvastatin Calcium 40 MG 1 tablet Oral ly Once a day for 30 day(s) Active Feldene 20 MG 1 capsule with food Orally Once a day as needed. Do NOt take any additional NSAIDs such as Motrin or Ibuprofen with this medication for 30 day(s) 01/07/2024 Active Extra Depth Orthopedic Shoes (1 Pair) with Customized Heat Molded Multidensity Innersoles (3 Pair) as directed Dx: NIDDM/Polyneuropathy (E11.42), Hammertoe Foot Deformity (M20.41,M20.42), Preulcerative Skin Lesion(s) (L85.1 Not-Taking Extra Depth Orthopedic Shoes (1 Pair) with Customized Heat Molded Multidensity Innersoles (3 Pair) as directed Dx: NIDDM/Polyneuropathy (E11.42), Hammertoe Foot Deformity (M20.41,M20.42), Preulcerative Skin Lesion(s) (L85.1 01/15/2022 Not-Taking Extra Depth Orthopedic Shoes (1 Pair) with Customized Heat Molded Multidensity Innersoles (3 Pair) as directed Dx: NIDDM/Polyneuropathy (E11.42), Hammertoe Foot Deformity (M20.41,M20.42), Preulcerative Skin Lesion(s) (L85.1 11/16/2024 Active Flovent HFA 110 MCG/ACT Inhalation for 60 Not-Taking Farxiga 10 MG 1 tablet Orally Once a day for 30 day(s) Active Eliquis 5 MG as directed Orally Active Metoprolol Succinate ER 50 MG 1 tablet Orally Once a day for 30 day(s) Active Ammonium Lactate 12 % 1 application to affected area Externally to feet Twice a day for 30 days Active Extra Depth Orthopedic Shoes (1 Pair) with Customized Heat Molded Multidensity Innersoles (3 Pair) as directed Dx: NIDDM/Polyneuropathy (E11.42), Hammertoe Foot Deformity (M20.41,M20.42), Preulcerative Skin Lesion(s) (L85.1 04/23/2023 Active Extra Depth Orthopedic Shoes (1 Pair) with Customized Heat Molded Multidensity Innersoles (3 Pair) as directed Dx: NIDDM/Polyneuropathy (E11.42), Hammertoe Foot Deformity (M20.41,M20.42), Preulcerative Skin Lesion(s) (L85.1 07/23/2019 Active Arthritis Pain PRN Activ e Immunizations [...] Problem Acquired hammer toe of right foot ([id number]) Other hammer toe(s) (acquired), right foot (M20.41) Active confirmed Problem Acquired hammer toe of left foot ([id number]) Other hammer toe(s) (acquired), left foot (M20.42) Active confirmed Problem [id number] Neuropathy (G62.9) Active confirmed Problem [id number] Type 2 diabetes mellitus with polyneuropathy (E11.42) Active confirmed Problem [id number] 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) Active confirmed Vital Signs Blood pressure diastolic 77 mm Hg 01/25/2025 Height 0yd35ns in 01/25/2025 Blood pressure systolic 130 mm Hg 01/25/2025 Weight 137 lbs 01/25/2025 BMI 27.67 kg/m2 01/25/2025 Encounters Encounter Location Date [facility] [address] [facility]/19/[facility]24 Kathrine Cheema Type 2 diabetes mellitus with polyneuropathy E11.[address] [address] 06/15/2024 Kathrine Cheema Type 2 diabetes mellitus with polyneuropathy E11.42 [facility] [place] [address] [place] [address] 11/16/2024 Kathrine Cheema Type 2 diabetes mellitus with polyneuropathy E11.42 ; Other hammer toe(s) (acquired), right foot M20.41 and Other hammer toe(s) (acquired), left foot M20.[address] [address] 01/25/2025 Kathrine Cheema Type 2 diabetes mellitus with polyneuropathy E11.[address] [address] 06/15/2024 Kathrine Cheema [address] [address] 09/07/2024 Kathrine Cheema [address] [address] 09/07/2024 Kathrine Cheema Assessments Encounter Date Diagnosis (ICD Code) Assessment Notes Treatment Notes Treatment Clinical Notes Section Notes 03/19/2024 Type 2 diabetes mellitus with polyneuropathy (ICD-10 - E11.42) 06/15/2024 Type 2 diabetes mellitus with polyneuropathy (ICD-10 - E11.42) 11/16/2024 Type 2 diabetes mellitus with polyneuropathy (ICD-10 - E11.42) 01/25/2025 Type 2 diabetes mellitus with polyneuropathy (ICD-10 - E11.42) 11/16/2024 Other hammer toe(s) (acquired), right foot (ICD-10 - M20.41) Patient Educated with: DIABETIC FOOT CARE INSTRUCTIONS. pdf (DIABETIC FOOT CARE INSTRUCTIONS. pdf) 11/16/2024 Other hammer toe(s) (acquired), left foot (ICD-10 - M20.42) 01/25/2025 Other Plan Of Treatment Pending Test Test Name Order Date X ray : Foot, left 3V 07/23/2019 X ray : Ankle, right 3V 11/05/2023 Next Appt Details Provider Name:Kathrine armando, 04/05/2025 02:45:00 PM, [address] [place] [address], [phone], Insurance Providers Payer Name Payer Address Payer Phone Subscriber Number Group Number Insured Name Patient Relationship to Insured Coverage Start Date Coverage End Date [facility] [employer] Claims [address] [place] [id number] [phone] [id number] Meena Hidalgo Self - patient is the insured Medical (General) History Medical History History ICD Code type 2 diabetes depression/anxiety hyperlipidemia psychophysiological insomnia osteopenia adnexal mass HTN asthma [place] 02/24/19 fatty liver uterine fibroid Arthritis Back,Hip,and [...]
--- OUTSIDE RECORDS SUMMARY | 2025-02-09 13:00 | XMS_ITS | Encounter Summary ---
Author Organization [employer] Address [address] [facility] [place] [address] Care Team Providers Care Black Top Roller Name Role Phone Hernan Urbina MD Primary Care Prov ider Encounter Details Date Type Department Care Team (Late st Contact Info) Description 01/24/2025 Orders Only [facility] MED & PEDS [address] [place], [place] [id number] Hernan Urbina MD [address] [place] [address] Social History Tobacco Use Types Packs/Day Years [...] Care Team (Late st Contact Info) Description 02/10/2025 1:00 PM EDT Office Visit [facility] ADULT DENTAL [address] [place] [address] Neha Felder DMD 02/14/2025 10:00 AM EDT Office Visit [facility] ADULT DENTAL [address] [place] [address] Domingo Spence 03/01/2025 10:15 AM EDT Telemedicine [facility] MED & PEDS [address] [place] [address] Hernan Urbina MD [address] [place] [address] documented as of this encounter Visit Diagnoses Not on filedocumented in this encounter Additional Health Concerns Assessment Noted Time PHQ-9 Depression Total Score: 2 12/21/19 8:57 AM EST documented as of this encounter Care Teams Black Top Roller Relationship Specialty Start Date End Date Hernan Urbina MD [address] [place] [address] PCP - General Internal Medicine 01/21/25 documented as of this encounter
--- OUTSIDE RECORDS SUMMARY | 2025-02-09 13:00 | XMS_ITS ---
Author Organization [facility] Address [address] [place] [address] Care Team Providers Care Associate Director Of Biostatistics Name Role Phone Hernan Wasserman Primary Care Provider Unavailable Kathrine Cheema [phone] REASON FOR VISIT r/s for sooner apt Encounters Encounter Location Date Provider Diagnosis [facility] [address] [place] [address] 11/19/2024 Kathrine Cheema Plan Of Treatment Next Appt Details Provider Name:Kathrine armando, 04/05/2025 02:45:00 PM, [address] [place], [address], Progress Notes * Judie TOLLIVERB:[birth year] (70 yo F)Acc No.[id number]:11/19/2024 Progress Note Patient:?Meena TOLLIVER Provider:?Kathrine Cheema DPM :1955???Age:69 Y???Sex:Female D ate:11/19/2024 Address:[address] [place] [address], [address], [phone] Pcp:Hernan wu Subjective: * Chief Complaints: * ???1. R/s [...] Cheema DPM Date:? Generated for Osmar brito/Raheel/Bridgett on:?02/09/2025 12:59 PM EDT
--- OUTSIDE RECORDS SUMMARY | 2025-02-09 13:00 | XMS_ITS | Encounter Summary ---
Author Organization [employer] [facility] Address [address] [place] [address] Care Team Providers Care Lumber Mover Name Role Phone Hernan Urbina MD Primary Care Prov ider Encounter Details Date Type Department Care Team (Late st Contact Info) Description 11/15/2024 Telephone [facility] ADULT DENTAL [address] [place] [address] Neha Felder DMD Social History Tobacco Use [...] Description 02/10/2025 1:00 PM EDT Office Visit [facility] ADULT DENTAL [address] [place] [address] Neha Felder DMD 02/14/2025 10:00 AM EDT Office Visit [facility] ADULT DENTAL [address] [place] [address] Domingo Spence 03/01/2025 10:15 AM EDT Telemedicine [facility] MED & PEDS [address] [place] [address] Hernan Urbina MD [address] [place] [address] documented as of this encounter Visit Diagnoses Not on filedocumented in this encounter Care Teams Lumber Mover Relationship Specialty Start Date End Date Hernan Urbina MD [address] [place] [address] PCP - General Internal Medicine 01/21/25 documented as of this encounter
--- OUTSIDE RECORDS SUMMARY | 2025-02-09 13:00 | XMS_ITS | Encounter Summary ---
Author Organization [employer] Address [address] [facility] [address] [place] [address] Care Team Providers Care Performance Improvement Specialist Name Role Phone Hernan Urbina MD Primary Care Prov ider Encounter Details Date Type Department Care Team (Latest Contact Info) Description 02/07/2025 Travel Social History Tobacco Use Types Packs/Day [...] Description 02/10/2025 1:00 PM EDT Office Visit [facility] ADULT DENT[facility] [address] [place] [address] Neha Felder DMD 02/14/2025 10:00 AM EDT Office Visit [facility] [address] [place] [address] Domingo Spence 03/01/2025 10:15 AM EDT Telemedicine [facility] MED [facility] [address] [place] [address] Hernan Urbina MD [address] [place] [address] documented as of this encounter Visit Diagnoses Not on filedocumented in this encounter Additional Health Concerns Assessment Noted Time PHQ-9 Depression Total Score: 2 12/21/19 8:57 AM EST documented as of this encounter Care Teams Performance Improvement Specialist Relationship Specialty Start Date End Date Hernan Urbina MD [address] [place] [address] PCP - General Internal Medicine 01/21/25 documented as of this encounter
--- OUTSIDE RECORDS SUMMARY | 2025-02-09 13:00 | XMS_ITS | Encounter Summary ---
Author Organization [employer] [facility] Address [address] [facility] 7t [place] [address] Care Team Providers Care Director Of Laboratory Operations Name Role Phone Hernan Urbina MD Primary Care Prov ider Reason for Visit * Reason Comments Med Refill Encounter Details Date Type Department Care Team ([facility] Contact Info) Description 09/12/2023 Refill [facility] MED & PEDS [address] [place] [address] Christopher Spence MD [address] [place] [address] Social History Tobacco Use Types Packs/Day Years [...] Upcoming Encounters Date Type Department Care Team ([facility] Contact Info) Description 02/10/2025 1:00 PM EDT Office Visit [facility] ADULT DENT[facility] [address] [place] [address] Neha Felder DMD 02/14/2025 10:00 AM EDT Office Visit [facility] ADULT [facility] [address] [place] [address] Domingo Spence 03/01/2025 10:15 AM EDT Telemedicine [facility] [address] [place] [address] Hernan Urbina MD [address] [place] [address] documented as of this encounter Visit Diagnoses Not on filedocumented in this encounter Care Teams Director Of Laboratory Operations Relationship Specialty Start Date End Date Henran Urbina MD [address] [place] [address] PCP - General Internal Medicine 01/21/25 documented as of this encounter
--- OUTSIDE RECORDS SUMMARY | 2025-02-09 13:00 | XMS_ITS ---
Author Organization [facility] Address [address] [facility] [place] [address] Care Team Providers Care Maintenance Engineer Oil Field Name Role Phone Hernan Wasserman Primary Care Provider Unavailable Kathrine Cheema Unavailable [phone] Allergies Allergen (clinical drug ingredient) Drug/Non Drug [...] other tobacco user? No Vital Signs Height 5zw25sm in 11/16/2024 Weight 128 lbs 11/16/2024 BMI 25.85 kg/m2 11/16/2024 Blood pressure systolic 130 mm Hg 11/16/19 25 Blood pressure diastolic 76 mm Hg 025 Encounters Encounter Location Date Provider Diagnosis [facility] [address] [address] 11/16/2024 Kathrine Cheema Type 2 diabetes mellitus [...] Up: 2 Months, Reason: Provider Name:Kathrine armando, 04/05/2025 02:45:00 PM, [address] [place], [address], Procedure Notes * Category Sub-Category Detail Notes [...] instrumentation by the physician of record - 07109 Progress Notes * Judie TOLLIVERB:[birth year] (69 yo F)Acc No.[id number]:11/16/2024 Progress Note Patient:?Meena TOLLIVER Provider:?Kathrine Cheema DPM :1955???Age:69 Y???Sex:Female D ate:11/16/2024 Address:[address] [place], [place] [id number] Pcp:Alvin Rodriguez Subjective: * Chief Complaints: * [...] - Side Effectsyes[Allergies Verified] Objective: * Vitals:?Ht: 8tq74ay, Wt:128, BMI:25.85, Shoe size: 5, BP:130/76mm Hg, [...] anesthesia, hyperesthesia, paresthesia, B/L.?Vascular: ?DP PULSES (B):? 1/, B/L.?PT PULSES (B):? 1/4, B/L.?CAPILLARY FILL TIME:?immediate, [...] instrumentation by the physician of record - [id number].? * Procedure Codes:?95482 TRIM SKIN LESIONS, OVER 4, Modifiers: XS [...] DPM Date:? Generated for Osmar brito/Raheel/Bridgett on:?02/09/2025 01:00 PM EDT History and Physical Notes * HPI [...] , PIPJ , T4 , T9 Orthopedic FOOTWEAR EVALUATION: worn, non-s upportive, shoe gear properties exacerbate patient's foot/toe deformity [...]
--- OUTSIDE RECORDS SUMMARY | 2025-02-09 13:00 | XMS_ITS | Encounter Summary ---
Author Organization [employer] [facility] Address [address] [address] [facility] [address] [place] [address] Care Team Providers Care Track Liner Operator Name Role Phone Hernan Urbina MD Primary Care Prov ider Encounter Details Date Type Department Care Team (Late st Contact Info) Description 08/10/2024 Telephone [facility] ADULT DENTAL [address] [place] [address] Neha Felder DMD Social History Tobacco Use [...] Department Care Team (Late Contact Info) Description 02/10/2025 1:00 PM EDT Office Visit [facility] ADULT DENTAL [address] [place] [address] Neha Felder DMD 02/14/2025 10:00 AM EDT Office Visit [facility] ADULT DENTAL [address] [place], [place] [phone] Domingo Spence 03/01/2025 10:15 AM EDT Telemedicine [facility] MED [facility] PEDS [address] [place] [address] Hernan Urbina MD [address] [place] [address] documented as of this encounter Visit Diagnoses Not on filedocumented in this encounter Care Teams Track Liner Operator Relationship Specialty Start Date End Date Hernan Urbina MD [address] [place] [address] PCP - General Internal Medicine 01/21/25 documented as of this encounter
--- OUTSIDE RECORDS SUMMARY | 2025-02-09 13:00 | XMS_ITS | Encounter Summary ---
Author Organization [employer] Address [address] [facility] [place] [address] Care Team Providers Care Pile Driving Nozzleman Name Role Phone Hernan Urbina MD Primary Care Prov ider Reason for Visit * Reason Onset Date Comments Appointment 05/20/2023 Encounter Details Date Type Department Care Team (Late st Contact Info) Description 05/20/2023 Telephone [facility] [address] [place] [address] Thompson Cobb DDS [address] [place] [address] Appointment Social History Tobacco Use Types Packs/Day [...] Description 02/10/2025 1:00 PM EDT Office Visit [facility] ADULT DENTAL [address] [place] [address] Neha Felder DMD 02/14/2025 10:00 AM EDT Office Visit [facility] ADULT DENTAL [address] [place] [address] Domingo Spence 03/01/2025 10:15 AM EDT Telemedicine [facility] MED & PEDS [address] [place] [address] Hernan Urbina MD [address] [place] [address] documented as of this encounter Visit Diagnoses Not on filedocumented in this encounter Care Teams Pile Driving Nozzleman Relationship Specialty Start Date End Date Hernan Urbina MD [address] [place] [address] PCP - General Internal Medicine 01/21/25 documented as of this encounter
--- OUTSIDE RECORDS SUMMARY | 2025-02-09 13:00 | XMS_ITS | Clinical Summary ---
Author Organization [employer] Address [address] [place] [address] Care Team Providers Care Bin Packer Name Role Phone Hernan Urbina MD Primary Care Prov ider Allergies Active Allergy Reactions Criticality Noted Date [...] in the morning and at bedtime. Active lisinopril 20 MG tablet Take 1 tablet (20 mg) by mouth Once per day. 30 tablet 11 01/22/20 25 026 Active Dulaglutide (Trulicity) 0.75 MG/0.5ML solution auto-injectorI ndications:Typ e 2 diabetes mellitus with diabetic peripheral angiopathy without gangrene, without long-term current use of insulin ([facility]) Inject 0.75 mg under the skin 1 (one) time per week. 2 mL 1 01/22/20 25 Active lisinopril 10 MG tablet Take 10 mg by mouth Once per day. 025 Discontinued(Re order (will not trigger notification to Pharmacy)) Active Problems Problem Noted Date Diagnosed Date Encounter for screening mamm ogram for malignant neoplasm of breast 01/21/2025 Assessment & Plan (01/21/2025 10:16 AM EDT): Patient wants to undergo mammogram test Encounter to establish care 12/21/2024 Assessment & Plan (12/21/2024 9:19 AM EST): Last pcp visit 1 year at [facility] ER: November due to vaginal bleeding, back pain August Hospital: 6 years ago due to [place] s/p stent x2 Pmhx: DM, HTN, Cholesterol, [place] s/p stent x2, CHF, atrial fibrillation Pshx: rotary cuff left arm 2004, csec 1985/1988, hand CTS right 2004, right trigger finger [...] use of insulin 12/21/2024 Assessment & Plan (01/21/2025 10:02 AM EDT): Uncontrolled, will add trulicity for cardiovascular benefits, encouraged low carb/no sugar diet, follow up in 1 month Assessment & Plan (12/21/2024 12:28 PM EST): On frantz and jennie Primary hypertension 11/12/2017 Assessment & Plan (01/21/2025 10:11 AM EDT): Uncontrolled, will increase lisinopril to 20mg, keep low sodium diet and exercise as tolerated Encounters Date Type Department Care Team Description 02/07/2025 Travel 01/24/2025 Orders Only [facility] [address] [place] [address] Hernan Urbina MD 01/21/2025 9:30 AM EDT Office Visit [facility] [address] [place] [address] Hernan Urbina MD Primary hypertension (Primary Dx); Type 2 diabetes mellitus with diabetic peripheral angiopathy without gangrene, without long-term current use of insulin (CMS/HCC); Encounter for screening mammogram for malignant neoplasm of breast 01/20/2025 Travel 12/21/2024 9:00 AM EST Telemedicine [facility] [address] [place] [address] Hernan Urbina MD Encounter to establish care (Primary Dx); Chronic diastolic heart failure (CMS/HCC); Paroxysmal atrial fibrillation (CMS/HCC); Type 2 diabetes mellitus with diabetic peripheral angiopathy without gangrene, without long-term current use of insulin (CMS/HCC) 12/21/2024 Travel 12/14/2024 Travel 12/09/2024 Travel 11/30/2024 Telephone [facility] [address] [place] [address] Neha Felder DMD 11/17/2024 1:00 PM EST Office Visit [facility] [address] [place] [address] Neha Felder DMD 11/17/2024 Telephone [facility] [address] [place] [address] Hernan Urbina MD Appointment 11/17/2024 Travel 11/16/2024 Orders Only [facility] [address] [place] [address] Neha Felder, GLORIA 11/15/2024 Telephone [facility] [address], [place] [phone] Neha Felder DMD from Last 3 Months [...] Sign Reading Time Taken Comments Blood Pressure 144/72 01/21/2025 9:20 AM EDT Pulse 72 01/21/2025 9:20 AM EDT Temperature 36.9 ??C (98.4 ??F) 01/21/2025 9:20 AM ED T Respiratory Rate 16 01/21/2025 9:20 AM EDT Oxygen Saturation - - Inhaled Oxygen Concentration - - Weight 58.1 kg (128 lb) 01/21/2025 9:20 AM EDT Height 149.9 cm (4' 11 ) 01/21/2025 9:20 AM EDT Body Mass Index 25.85 01/21/2025 9:20 AM EDT Plan of Treatment Upcoming Encounters Date Type Department Care Team (Late st Contact Info) Description 02/10/2025 1:00 PM EDT Office Visit [facility] [address] [place] [address] Neha Felder DMD 02/14/2025 10:00 AM EDT Office Visit [facility] [address] [place] [address] Domingo Spence 03/01/2025 10:15 AM EDT Telemedicine [facility] [address] [place] [address] Hernan Urbina MD [address] [place] [address] Health Maintenance Due Date Last Done Comments CT Colonography 1956 Colonoscopy 1956 Colorectal Cancer Screening 1956 FIT DNA/Cologuard 1956 FIT 1956 FOBT 1956 Sigmoidoscopy 1956 Eye Exam 01/31/1966 Alcohol/Substance Use Screening 1968 Hepatitis A Vaccines (1 of 2 - Risk 2-dose series) 01/31/1975 Pneumococcal Vaccine: 50+ Years (1 of 2 - PCV) 01/31/1975 Hepatitis B Vaccines (1 of 3 - Risk 3-dose series) 2016 RSV Patients and Patients Aged 60 years or older (1 - Risk 60-74 years 1-dose series) 2016 Zoster Vaccines (2 of 3) 07/25/2017 05/30/2017 Mammogram 01/26/2021 01/26/2019, 07/05, 07/21/2018 COVID-19 Vaccine ( - season) 2024 11/20/2021, 04/12/2021 Influenza Vaccine (#1) 2024 Dental Oral Exam 02/12/2025 08/13/2024, 08/2024, 04/16/2023 Dental Prophylaxis 02/12/2025 08/13/2024, 0 02/11/2024, 04/16/2023 Diabetes: Hemoglobin A1C 04/23/2025 01/21/2025 Dental X-Ray: Bitewings 08/14/2025 08/13/20 24, 06/17/2024, 04/16/2023 Depression Screening 12/21/2025 12/21/2024, 12/21/19 25 SDOH Screening 12/21/2025 12/21/2024 Tobacco Screening 12/21/2025 12/21/2024 Diabetes: Foot Exam 01/21/2026 01/21/2025, 01/21/2025, 01/21/2025, Additional history exists Diabetes: Urine Protein Screening 01/21/2026 01/21/2025 Lipid Panel 01/21/2026 01/21/2025 Dental X-Ray: Full Mouth 04/26/2026 04/25/2023 DTaP/Tdap/Td Vaccines (2 - Td or Tdap) 05/30/2027 05/30/2017 Hepatitis C Screening Completed 01/21/2025 HIB Vaccines Aged Out No longer eligi [...] Procedure Name Priority Date/Time Associated Diagnosis Comments ALBUMIN, RANDOM URINE W/CREATININE Routine 01/21/2025 10:40 AM EDT Type 2 diabetes mellitus with diabetic peripheral angiopathy without gangrene, without long-term current use of insulin (CMS/HCC) TSH W/REFLEX TO FT4 Routine 01/21/2025 1 0:39 AM EDT Type 2 diabetes mellitus with diabetic peripheral angiopathy without gangrene, without long-term current use of insulin (CMS/HCC) LIPID PANEL, STANDARD Routine 01/21/2025 10:39 AM EDT Type 2 diabetes mellitus with diabetic peripheral angiopathy without gangrene, without long-term current use of insulin (CMS/HCC) COMPREHENSIVE METABOLIC PANEL Routine 01/21/2025 10:39 AM EDT Type 2 diabetes mellitus with diabetic peripheral angiopathy without gangrene, without long-term current use of insulin (CMS/HCC) HEPATITIS C AB W/REFL TO HCV RNA, QN, PCR Routine 01/21/2025 10:34 AM EDT Type 2 diabetes mellitus with diabetic peripheral angiopathy without gangrene, without long-term current use of insulin (CMS/HCC) HIV 1/2 ANTIGEN/ANTIBODY, FOURTH GENERATION W/RFL Routine 01/21/2025 10:34 AM EDT Type 2 diabetes mellitus with diabetic peripheral angiopathy without gangrene, without long-term current use of insulin (CMS/HCC) CBC WITH AUTO DIFFERENTIAL Routine 01/21/2025 10:34 AM EDT Type 2 diabetes mellitus with diabetic peripheral angiopathy without gangrene, without long-term current use of insulin (CMS/HCC) POCT GLYCATED HEMOGLOBIN, TOTAL Routine 01/21/2025 10:01 AM EDT Type 2 diabetes mellitus with diabetic peripheral angiopathy without gangrene, without long-term current use of insulin ([facility]) POCT GLUCOSE Routine 01/21/2025 10:00 AM EDT Type 2 diabetes mellitus with diabetic peripheral angiopathy without gangrene, without long-term current use of insulin ([facility]) CASE PRESENTATION, DETAILED AND EXTENSIVE TREATMENT PLANNING Routine 11/17/2024 1:00 PM EST 9 CROWN PREP Routine 11/17/2024 1:00 PM EST 8 CROWN PREP Routine 11/17/2024 1:00 PM EST Full PROPHYLAXIS - ADULT Routine 08/13/2024 8:00 AM EDT BITEWINGS - 4 RADIOGRAPHIC IMAGES Routine 08/13/2024 8:00 AM EDT PERIODIC ORAL EVALUATION - ESTABLISHED PATIENT Routine 08/13/2024 8:00 AM EDT PANORAMIC RADIOGRAPHIC IMAGE Routine 04/25/2023 1:30 PM EDT MAMMOGRAM GENERIC Routine 01/26/2019 1:3 4 PM EDT from Last 3 Months or Most Recently Relevant to Health Maintenance Results * (ABNORMAL) Albumin, Random Urine W/Creatinine (01/21/2025 10:40 AM EDT) Creatinine, Urine 72.43 mg/dL [facility] Microalbumin Urine 27.0 mg/L [facility] Microalbum Creatinine Ratio Ur 37.2(H) <30 ug/mg cr [facility] Comment:Albumin/Creatinine R atio Reference Ranges: Normal: < 30 ug/mg creatinine Microalbuminuria: 30 - 300 ug/mg creatinineClinical Albuminuria: > 300 ug/mg creatinine Urine (Urine, Random) 01/21/2025 10:40 AM EDT 01/21/2025 2:08 PM EDT us Hernan Aaron MD LAB URINE ORDERABL ES Final Result [facility] [address] [place] [phone] * TSH W/Reflex to FT4 (01/21/2025 10:39 AM EDT) TSH reflex Free T4 0.75 0.32 - 4.0 uIU/mL [facility] Blood Venous blood specimen / Unknown 01/21/2025 10:39 AM EDT 01/21/2025 2:05 PM EDT Hernan Aaron MD LAB BLOOD ORDERABL ES Final Result [facility] [address] [place] [address] [phone] * (ABNORMAL) Lipid Panel, Standard (01/21/2025 10:39 AM EDT) Triglycerides 159(H) <150 mg/dL [facility] Comment:Desirable Triglyceri de: less than 150 mg/dLBorderline High Triglyceride 150-199 mg/dLHigh Triglyceride: 200-499 mg/dLVery High Triglyceride: greater than or equal to 5OO mg/dL Cholesterol 332(H) <200 mg/dL [facility] Comment:Desirable Cholestero l: less than 200 mg/dLBorderline High Cholesterol: 200-239 mg/dLHigh Cholesterol: greater than 239 mg/dL LDL Cholesterol Calculated 247(H) <100 mg/dL [facility] Comment:Desirable LDL: less than 100 mg/dLNear Optimal/Above Optimal LDL: 110- 129 mg/dLBorderline High LDL: 130-159 mg/dLHigh LDL: 160-189 mg/dLVery High LDL: greater than or equal to 190 mg/dL HDL Cholesterol 54 >40 mg/dL [facility] Comment:Desirable HDL: great er than 40 mg/dL Note: This HDL assay may give artificially low results in patients with liver disease. Blood Venous blood specimen / Unknown 01/21/2025 10:39 AM EDT 01/21/2025 2:05 PM EDT Hernan Aaron MD LAB BLOOD ORDERABL ES Final Result [facility] [address] [place] [phone] * (ABNORMAL) Comprehensive Metabolic Panel (01/21/2025 10:39 AM EDT) Sodium 139 135 - 145 mmol/L [facility] Potassium 4.4 3.3 - 5.1 mmol/L [facility] Chloride 103 96 - 108 mmol/L [facility] Carbon Dioxide 28 22 - 29 mmol/L [facility] Anion Gap 12 12 - 20 [facility] Urea Nitrogen (BUN) 19(H) 9 - 16 mg/dL [facility] Creatinine, Serum 0.69 0.5 - 1.4 mg/dL [facility] Estimated Glomerular Filt Rate >60 [facility] Comment:Chronic Kidney Disea se: Estimated GFR < 60 mL/min/[id number] Kidney Disease: Estimated GFR < 15 mL/min/1.73m2 Glucose 209(H) 60 - 115 mg/dL [facility] Calcium 10.0 8.4 - 10.2 mg/dL [facility] Bilirubin, Total 0.8 0.0 - 1.0 mg/dL [facility] Aspartate Amino Transferase 21 5 - 31 U/L [facility] Alanine Aminotransferase 22 0 - 31 U/L [facility] Total Protein 8.2(H) 6.5 - 8.0 g/dL [facility] Albumin Level 4.5 3.5 - 5.0 g/dL [facility] Alkaline Phosphatase 83 39 - 117 U/L [facility] Blood Venous blood specimen / Unknown 01/21/2025 10:39 AM EDT 01/21/2025 2:05 PM EDT us Hernan Aaron MD LAB BLOOD ORDERABL ES Final Result Performing Organization Address [facility]/ZIP Co de Phone Number [facility] [address] [place] [address] [phone] * (ABNORMAL) CBC auto differential (01/21/2025 10:34 AM EDT) White Blood Count 4.8 4.8 - 10.8 X10*3/uL [facility] Red Blood Count 4.74 4.20 - 5.50 X10*6/uL [facility] Hemoglobin 14.5 12.0 - 16.0 g/dl [facility] Hematocrit 43.4 37.0 - 47.0 % [facility] Mean Corpuscular Volume 91.6 80.0 - 98.0 fL [facility] Mean Corpuscular Hemoglobin 30.6 27.0 - 33.0 pg [facility] Mean Corpuscular HGB Conc 33.4 31.0 - 35.0 g/dl [facility] Red Cell Distribution Width 11.4 11.0 - 16.0 % [facility] Platelet Count 234 160 - 400 X10*3/uL [facility] Mean Platelet Volume 11.5 9.4 - 12.3 fL [facility] Neutrophils Percent Auto 66.6 45 - 73 % [facility] Imm Gran Pct Auto 0.2 0.0 - 0.4 % [facility] Lymphocytes Percent Auto 22.5 20 - 40 % [facility] Monocytes Percent Auto 8.8 2 - 11 % [facility] Eosinophils Percent Auto 1.7 0 - 4 % [facility] Basophils Percent Auto 0.2 0 - 2 % [facility] NRBC Pct Auto 0.0 0.0 - 0.2 /100WBC [facility] Neutrophils Absolute Auto 3.2 2.0 - 8.3 x10*3/uL [facility] Imm Gran Abs Auto 0.01 0.00 - 0.03 X10*3/uL [facility] Lymphocytes Absolute Auto 1.1(L) 1.2 - 4.9 X10*3/uL [facility] Monocytes Absolute Auto 0.4 0.1 - 1.2 X10*3/uL [facility] Eosinophils Absolute Auto 0.1 0.0 - 0.4 X10*3/uL [facility] Basophils Absolute Auto 0.0 0.0 - 0.2 X10*3/uL [facility] NRBC Abs Auto 0.000 0.0 - 0.012 X10*3/uL [facility] Blood Venous blood specimen / Unknown 01/21/2025 10:34 AM EDT 01/21/2025 2:05 PM EDT Hernan Aaron MD LAB BLOOD ORDERABL ES Final Result Performing Organization Address [facility] Co de Phone Number [facility] [address] [place] [phone] * Hepatitis C Antibody with Reflex to HCV, RNA, Quantitative, Real-Time PCR (01/21/2025 10:34 AM EDT) Hepatitis C Antibody Nonreactive Nonreactive [facility] Comment:Antibodies to HCV no t detected; does not exclude early acuteHCV infection. Blood Venous blood specimen / Unknown 01/21/2025 10:34 AM EDT 01/21/2025 2:05 PM EDT Hernan Aaron MD LAB BLOOD ORDERABL ES Final Result Performing Organization Address [facility] Co de Phone Number [facility] [address] [place] [phone] * HIV-1/2 Antigen and Antibodies, Fourth Generation, with Reflexes (01/21/2025 10:34 AM EDT) HIV AB/AG Nonreactive Nonreactive [facility] Comment:HIV-1 p24 Ag and/or HIV-1/HIV-2 Ab not detected.A test result that is nonreactive does not exclude thepossibility of exposure to or infection with HIV-1 and/orHIV-2. Nonreactive results in this assay for individualswith prior exposure to HIV-1 and/or HIV-2 may be due toantigen and antibody levels that are below the limit ofdetection of this assay.The [employer] HIV Ag/Ab Combo assay result andsupplemental assay results should be interpreted inconjunction with the patient's clinical presentation,history and other laboratory results. If the results areinconsistent with clinical evidence, additional testing issuggested to confirm the result. Blood Venous blood specimen / Unknown 01/21/2025 10:34 AM EDT 01/21/2025 2:05 PM EDT Hernan Aaron MD LAB BLOOD ORDERABL ES Final Result [facility] [address] [place] [phone] * (ABNORMAL) POCT HGB A1C (01/21/2025 10:01 AM EDT) Hemoglobin A1C 8.7(A) 4.0 - 6.0 % QC Media Lot # [id number] Lot# Expiration Date Blood 01/21/2025 10:0 1 AM EDT Hernan Aaron MD POINT OF CARE TEST ENTER/EDIT ORDERABLES Final Result * POCT Glucose (01/21/2025 10:00 AM EDT) Glucose Blood, POC 197 60 - 200 mg/dL QC Media Lot # [id number] Lot# Expiration Date Blood Capillary blood specimen / Unknown 01/21/2025 10:00 AM EDT Hernan Aaron MD POINT OF CARE TEST ENTER/EDIT ORDERABLES Final Result * 3D UNI DIGITAL DX MAMMO 1 [...] Procedure: 3D UNI DIGITAL DX MAMMO 1 us Christopher Spence MD IMG BI PROCEDURES Final Res ult from Last 3 Months or Most Recently Relevant to Health Maintenance [place] [address] [place] [address] - [facility] [place] [id number] [address] [id number] Care Teams Bin Packer Relationship Specialty Start Date End Date RajputHernan Lane MD [address] [place] [address] [place] [phone] PCP - General Internal Medicine 01/21/25
--- OUTSIDE RECORDS SUMMARY | 2025-02-09 13:00 | XMS_ITS ---
[facility] Organization [facility] Address [address] [place] [address] Care Team Providers Care Talent Acquisition Partner Name Role Phone Hernan Wasserman Primary Care Provider Unavailable Kathrine Cheema Unavailable [phone] Allergies Allergen (clinical drug ingredient) Drug/Non Drug Allergy documented on EMR Reaction Allergy Type Onset Date Status oxycodone OxyContin hallucination Drug Allergy Act leif shrimp allergenic extract Shrimp (Diagnostic) Unknown Drug Allergy Active Shellfish (FN) Shellfish-derived Products Unknown Drug Allergy Active vitamin D Vitamin D hallucinations Drug Allergy Ac tive REASON FOR VISIT At Risk Footcare Medications Medication SIG (Take, Route, Frequency, Duration) Notes Start Date End Date Status Vitamin D3 2000 UNIT 1 capsule Orally On ce a day for 30 day(s) Not-Taking Brilinta 90 MG 1 tablet Orally Twic e a day for 30 day(s) Not-Taking Cyclobenzaprine HCl 10 MG 1 tablet as ne eded Orally Three times a day Not-Taking Acetaminophen 325 MG 1 tablet as needed Orally every 4 hrs Not-Taking Methylprednisolone N ot-Taking Gabapentin Not-Takin g Ammonium Lactate 12 % 1 application to affected area Externally to feet Twice a day for 30 days Not-Taking Lisinopril Not-Takin g Extra Depth Orthopedic Shoes (1 Pair) with Customized Heat Molded Multidensity Innersoles (3 Pair) as directed Dx: NIDDM/Polyneuropathy (E11.42), Hammertoe Foot Deformity (M20.41,M20.42), Preulcerative Skin Lesion(s) (L85.1 Not-Taking Extra Depth Orthopedic Shoes (1 Pair) with Customized Heat Molded Multidensity Innersoles (3 Pair) as directed Dx: NIDDM/Polyneuropathy (E11.42), Hammertoe Foot Deformity (M20.41,M20.42), Preulcerative Skin Lesion(s) (L85.1 01/15/2022 Not-Taking hydrOXYzine HCl 10 MG Oral for 30 Active Feldene 20 MG 1 capsule with food Orally Once a day as needed. Do NOt take any additional NSAIDs such as Motrin or Ibuprofen with this medication for 30 day(s) 01/07/2024 Active Repaglinide 2 MG TAKE ONE TABLET BY MOUTH THREE TIMES DAILY 30 MINUTES BEFORE A MEAL OR SNACK Oral for 30 Active Extra Depth Orthopedic [...] 07/23/2019 Active Arthritis Pain PRN Activ e Januvia 100 MG Oral for 30 Act leif Farxiga 10 MG 1 tablet Orally Once a day for 30 day(s) Active Eliquis 5 MG as directed Orally Active Metoprolol Succinate ER 50 MG 1 tablet Orally Once a day for 30 day(s) Active CeleBREX Active Rosuvastatin Calcium 40 MG 1 tablet Oral ly Once a day for 30 day(s) Active Social History Tobacco Use: Social History Observation Description Date Details (start date - stop date) Never Smoker NA - NA Tobacco Use/Smoking Question Answer Notes Are you a: nonsmoker Additional Findings: Tobacco Non-User Aggressive non-smoker Tobacco use other than smoking: Question Answer Notes Are you an other tobacco user? No Vital Signs Height [id number] in 01/25/2025 Weight 137 lbs 01/25/2025 BMI 27.67 kg/m2 01/25/2025 Blood pressure systolic 130 mm Hg 01/26/20 Blood pressure diastolic 77 mm Hg 025 Encounters Encounter Location Date Provider Diagnosis [facility] [address] [address] 01/25/2025 Kathrine Anette Type 2 diabetes mellitus with polyneuropathy E11.42 Assessments Encounter Date Diagnosis (ICD Code) Assessment Notes Treatment Notes Treatment Clinical Notes Section Notes 01/25/2025 Type 2 diabetes mellitus with polyneuropathy (ICD-10 - E11.42) 01/25/2025 Other Plan Of Treatment Next Appt Details Follow Up: 2 Months, Reason: Provider Name:Kathrine Armando Jorge Luis armando, 04/05/2025 02:45:00 PM, [address] [place] [address], [phone], Procedure Notes * Category Sub-Category Detail Notes [...] instrumentation by the physician of record - 10585 Progress Notes * Hue TOLLIVER:[birth year] (69 yo F)Acc No.[id number]:01/25/2025 Progress Note Patient:?Meena TOLLIVER Provider:?Kathrine Cheema DPM :1955???Age:69 Y???Sex:Female D ate:01/25/2025 Address:[address] [place] [address], [address] [facility] Pcp:Hernan wu Subjective: * Chief Complaints: * ???At Risk Footcare * HPI: ???At Risk footcare:?Pt States Last PCP Visit:?Date?01/17/2025 * ROS:?General/Constitutional:?Nausea?denies.?Vomiting?denies.?Hunger Thirst?denies.?Loss appetite?denies.?Chills?denies.?Fatigue?denies.?Fever?denies.?Night Sweats?denies.?Unexplained weight loss?denies.?Unexplained [...] than smoking?Are you an other tobacco user??No ???Miscellaneous:?Caffeine: yes, frequency:, 1 cups per day coffee. ?Children: yes, 2. ?Exercise: yes, walking, exercise class , housework. ?Marital status: single. ?Occupation: Retired. * Medications:?TakingCeleBREX Rosuvastatin Calcium 40 MG Tablet [...] as Motrin or Ibuprofen with this medication Extra Depth Orthopedic Shoes (1 Pair) with Customized Heat Molded Multidensity Innersoles (3 Pair) as directed Dx: NIDDM/Polyneuropathy (E11.42), Hammertoe Foot Deformity (M20.41,M20.42), Preulcerative Skin Lesion(s) (L85.1 Taking CeleBREX Taking Rosuvastatin Calcium 40 MG [...] Motrin or Ibuprofen with this medication Taking Extra Depth Orthopedic Shoes (1 Pair) with Customized Heat Molded Multidensity Innersoles (3 Pair) as directed Dx: NIDDM/Polyneuropathy (E11.42), Hammertoe Foot Deformity (M20.41,M20.42), Preulcerative Skin Lesion(s) (L85.1 Not-Taking/PRNFlovent HFA 110 MCG/ACT Aerosol Inhalation Extra [...] - Side Effectsyes[Allergies Verified] Objective: * Vitals:?Ht: 9qt98qe, Wt:137, BMI:27.67, Shoe size: 5, BP:130/77mm Hg, BS: not taken, Ht-cm: 149.86 cm, Wt-k.14 kg. * ???Past Orders: ???Lab:HEMOGLOBIN A1C (GLYCO HEMOGLOBIN) (Order Date - 01/25/2025) (Collection Date & Time - 01/25/2025 02:46 PM) ? Value Reference Range ?HEMOGLOBIN A1C % (HH) 7.2 * Examination: ???Ophthalmology Referral: ?DIABETES EYE EXAM?Procedure Performed:?Yes ?Date of Exam Performed?07/04/2024 ?Findings of Diabetic Eye Exam:?no retinopathy?General Examination: ?GENERAL APPEARANCE:?Reveals a pleasant, alert, well nourished, well- developed, well hydrated individual, who demonstrates proper attention to hygiene/body habitus, and is in no acute distress, Pt serves as own historian for office visit today.?ORIENTED:?person, place, and time.?FOOT EXAM:?Lower Extremity Neurological Exam performed:?Yes ?Visual exam of foot performed:?Yes ?Date?01/25/2025 ?Footwear Evaluation?Footwear Evaluation performed:?Yes?Neurological: ?SENSORY:?Neurological exam demonstrates, reduced light touch sensation, reduced sharp/dull pin prick discrimination, reduced vibration sensation, Pt relates, anesthesia, hyperesthesia, paresthesia, B/L.?Vascular: ?DP PULSES (B):? 1/4, B/L.?PT PULSES (B):? 1/4, B/L.?CAPILLARY FILL TIME:?immediate, all digits, B/L.?TROPHIC CONDITION-TEXTURE/ELASTICITY/TURGOR/HAIR GROWTH (B):?normal, B/L.?TEMPERTURE GRADIENT (C):?warm to cool, proximal to distal, B/L.?PIGMENTATION:?normal, B/L.?EDEMA (C):?absent, B/L.?Dermatologic: ?SKIN FINDINGS:?Skin exam reveals Keratotic lesion(s) located at, Plantar, TA, T5, SUB MTH (s), 5, B/L(s), [...] 2 diabetes mellitus with polyneuropathy - E11.42 (Primary)??? Plan: * Treatment: * Procedures:?Keratoma Treatment:?Parring or [...] instrumentation by the physician of record - 39037.? * Procedure Codes:?30859 TRIM SKIN LESIONS, OVER 4, Modifiers: XS * Preventive Medicine:? ??Screening/Special Tests:?Fall Risk?Assessment:?Performed ?Screening:?No falls in the past year ?FALLS: Screening for Future Fall Risk?Have you had two or more falls in the past year??No ?Have you had any falls with injury in the past year??No * Follow Up:?2 Months * Images: * Sign off status: Completed true * Provider:?Kathrine Cheema DPM Date:? Generated for Osmar brito/Raheel/Bridgett on:?02/09/2025 12:59 PM EDT History and Physical Notes * HPI (History of Present Illness) Category Sub-Category Detail Notes Category Not es At Risk footcare Pt States Last PCP Visit: Date: 5 Examination Category Sub-Category Detail Notes Category Not es Neurological SENSORY: Neurological exa m demonstrates, reduced light touch sensation, reduced sharp/dull pin prick discrimination , reduced vibration sensation, Pt relates, anesthesia, hyperesthesia, paresthesia, B/L Dermatologic SKIN FINDINGS: Skin exam reveal s Keratotic lesion(s) located at, Plantar, TA, T5, SUB MTH (s), 5, B/L(s), [...] Visual exam of foot performed:: Yes Date: 01/25/2025 ORIENTED: person, place, and t nik Footwear [...]
--- OUTSIDE RECORDS SUMMARY | 2025-02-09 13:00 | XMS_ITS | Encounter Summary ---
Author Organization [employer] [facility] Address [address] [facility] 7 [place] [address] Care Team Providers Care Research Asst Name Role Phone Hernan Urbina MD Primary Care Prov ider Encounter Details Date Type Department Care Team (Latest Contact Info) Description 04/14/2019 Abstract [facility] CONVERSIONS Dental, Provider, DDS Social History [...] Upcoming Encounters Date Type Department Care Team ( st Contact Info) Description 02/10/2025 1:00 PM EDT Office Visit [facility] ADULT DENTAL [address] [place] [address] Neha Felder DMD 02/14/2025 10:00 AM EDT Office Visit [facility] ADULT DENTAL [address] [place] [address] Domingo Spence 03/01/2025 10:15 AM EDT Telemedicine [facility] MED & PEDS [address] [place] [address] Hernan Urbina MD [address] [place] [address] documented as of this encounter Visit Diagnoses Not on filedocumented in this encounter Care Teams Research Asst Relationship Specialty Start Date End Date Hernan Urbina MD [address] [place] [address] PCP - General Internal Medicine 01/21/25 documented as of this encounter
--- OUTSIDE RECORDS SUMMARY | 2025-02-09 13:00 | XMS_ITS | Encounter Summary ---
Author Organization [facility] Address [address] [facility] 7 [place] [address] Care Team Providers Care Hot Metal Charger Name Role Phone Hernan Urbina MD Primary Care Prov ider Encounter Details Date Type Department Care Team (Latest Contact Info) Description 02/02/2021 Abstract [facility] CONVERSIONS Dental, Provider, DDS Social History Tobacco [...] Description 02/10/2025 1:00 PM EDT Office Visit [facility] ADULT DENTAL [address] [place] [address] Neha Felder DMD 02/14/2025 10:00 AM EDT Office Visit [facility] ADULT DENTAL [address] [place] [address] Domingo Spence 03/01/2025 10:15 AM EDT Telemedicine [facility] MED & PEDS [address] [place] [address] Hernan Urbina MD [address] [place] [address] documented as of this encounter Visit Diagnoses Not on filedocumented in this encounter Care Teams Hot Metal Charger Relationship Specialty Start Date End Date Hernan Urbina MD [address] [place] [address] PCP - General Internal Medicine 01/21/25 documented as of this encounter
--- OUTSIDE RECORDS SUMMARY | 2025-02-09 13:00 | XMS_ITS | Encounter Summary ---
Author Organization [facility] Address [address] [facility] 7 [place] [address] Care Team Providers Care Bumper And Painter Name Role Phone Hernan Urbina MD Primary [...] Description 02/10/2025 1:00 PM EDT Office Visit [facility] ADULT DENTAL [address] [place] [address] Neha Felder DMD 02/14/2025 10:00 AM EDT Office Visit [facility] ADULT DENTAL [address] [place] [address] Domnigo Spence 03/01/2025 10:15 AM EDT Telemedicine [facility] MED & PEDS [address] [place] [address] Hernan Urbina MD [address] [place] [address] documented as of this encounter Visit Diagnoses Not on filedocumented in this encounter Care Teams Bumper And Painter Relationship Specialty Start Date End Date Hernan Urbina MD [address] [place] [address] PCP - General Internal Medicine 01/21/25 documented as of this encounter
--- OUTSIDE RECORDS SUMMARY | 2025-02-09 13:00 | XMS_ITS | Encounter Summary ---
Author Organization [facility] Address [address] [facility] 7 [place] [address] Care Team Providers Care Market Editor Name Role Phone Hernan Urbina MD Primary Care Prov ider Encounter Details Date Type Department Care Team (Late Contact Info) Description 11/01/2022 Abstract [facility] ADULT DENTAL [address] [place], [place] [phone] Thompson Cobb DDS [address] [place] [address] Social History Tobacco Use Types Packs/Day Years [...] Description 02/10/2025 1:00 PM EDT Office Visit [facility] ADULT [facility] [address] [place] [address] Neha Felder DMD 02/14/2025 10:00 AM EDT Office Visit [facility] ADULT [facility] [address] [place] [address] Domingo Spence 03/01/2025 10:15 AM EDT Telemedicine [facility] MED [facility] PEDS [address], [place] [phone] Hernan Urbina MD [address] [place], [place] documented as of this encounter Visit Diagnoses Not on filedocumented in this encounter Care Teams Market Editor Relationship Specialty Start Date End Date Hernan Urbina MD [address] [place] [address] PCP - General Internal Medicine 01/21/25 documented as of this encounter
== END 2025-02-09 11:33 | disposition home or self-care (01) ==
PROVIDERS: Emergency Provider Emergency Medicine; PCP Internal Medicine
DX: R31.9 Hematuria, unspecified (principal); N32.9 Bladder disorder, unspecified; I25.10 Atherosclerotic heart disease of native coronary artery without angina pectoris; I10 Essential (primary) hypertension; Z79.899 Other long term (current) drug therapy
CPT/HCPCS: 36415; 80053; 81001; 85025; 99282; 99283

== ENCOUNTER 2025-02-22 12:20 | Outpatient (AMB) | payer OTHER, SELFPAY ==
--- NOTE | 2025-02-22 13:05 | A.OFFVIS_ITS ---
Intake Visit Reasons: cysto/CT/labs Intake Note: Patient presents today for a follow up, cystoscopy. Urology Medications: myrbetriq Blood Thinner: none Cargo Router Required: No Accompanied by: Self / Same As Patient Allergies atorvastatin [From LIPITOR] Adverse Reaction (Intermediate, Verified 02/22/25 13:06) STOMACH ACHE oxycodone [From OXYCONTIN] Adverse Reaction (Intermediate, Verified 02/22/25 13:06) SENSORY HALLUCINATIONS sulfamethoxazole [From Bactrim] Adverse Reaction (Intermediate, Verified 02/22/25 13:06) chills vitamin d Adverse Reaction (Intermediate, Uncoded 02/22/25 13:06) Hallucinations HPI Comments Details: Meena is a very pleasant patient. She is a patient of Dr. Rajput. She is seen for the following urologic conditions - bladder cancer Seen for investigation and cysto today in office Initial presentation had been with overactive bladder and bleeding Had been treated with Myrbetriq by her PCP Table Assembler evaluation showed mass in bladder measuring 1.7 x 2.0 cm Initial evaluation with nurse-practitioner CT urogram performed - 1.7 cm polypoid mass on left bladder wall Consistent on cystoscopy Recommendation for TUR BT No risk factors. Denies nicotine dependence or workplace chemical exposure. 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 Superficial bladder cancer [facility] Medical History (Updated 02/22/25 @ 13:56 by Jean Busch MD) Bladder mass Metformin adverse reaction Urinary incontinence, mixed Oropharyngeal dysphagia COVID-19 vaccination refused Refused influenza vaccine Diabetes mellitus with hyperglycemia, without long-term current use of insulin Anxiety as acute reaction to gross stress Mild intermittent asthma in adult without complication OAB (overactive bladder) Diabetes mellitus with microalbuminuria, without long-term current use of insulin Osteoarthritis, knee History of depression Osteopenia after menopause Overweight Varicose veins of right lower extremity History of ST elevation myocardial infarction (STEMI) Coronary artery disease involving [place] coronary artery Hypertension Refused pneumococcal vaccination Dyslipidemia Surgical History History of section Hx of myomectomy S/P left rotator cuff repair History of heart artery stent Family History Father No problems noted. Mother No problems noted. Brother Diabetes mellitus Daughter Mental health disorder Son Mental health disorder Social History Housing: Apartment Alcohol intake: current Alcohol intake frequency: holidays/special occasions only Patient Tobacco Use Status: Never used Tobacco e-Cigarette/Vaping Use: Never Used Second Hand Smoke Exposure: No service: No Current occupational status: disabled Current occupation: [employer] Current occupational exposures/hazards: No Cognitive needs: No Hearing needs: No Vision needs: Yes Female Reproductive History Menstrual Age of Menarche: 12 Review of Systems Const Denies chills and Denies fever(s) Card Reports no additional complaints and Denies syncope Resp Denies cough GI Denies abdominal pain and Denies heartburn Reports as per HPI and Denies change in libido Neuro Denies syncope Psych Denies change in libido Endo Denies change in libido Physical Exam Const General: cooperative, healthy appearing, comfortable and no acute distress Orientation/consciousness: patient oriented x3 HEENT Face and sinus: Yes normal facial exam Mouth: moist mucous membranes Neck Neck: Yes normal visual inspection, Yes full ROM and Yes trachea midline Chest Chest palpation & inspection: normal inspection of the chest Resp Effort & Inspection: normal respiratory effort, able to speak in complete sentences and no respiratory distress GI Inspection: Yes normal to inspection Back/Spine/Pelvis Cervical Spine: normal cervical lordosis Thoracic/Lumbar Spine: thoracic and lumbar spine normal to inspection Skin General skin exam: no rashes or lesions noted Neuro General: patient oriented x3, gait normal, tone normal and moves all extremities Extrem General: Yes normal to inspection and Yes capillary refill normal Office Procedures Cystoscopy Consent Discussed risk and benefit or proposed procedure with the patient. Information consent for procedure given to the patient. Discussed technical aspects, risks, benefits and alternatives in full. Addressed all of the patient's questions and concerns regarding the procedure. The patient demonstrated knowledge and understanding. They wish to proceed with this procedure. Preparation The patient was prepped in the usual manner. A flight line service attendant was present and in the room. Genitalia was prepped with betadine solution in a sterile manner. Lidocaine Jelly 2% was placed into the urethra and 16Fr flexible Olympus cystoscope was inserted into the meatus after adequate lubrication. Procedure Meatus normal Urethra normal Bladder examination with retroflexion of cystoscope Bladder Orifices normal shape and position Trigone metaplasia Bladder Capacity normal Trabeculations - Cellule Formation - Diverticulum Formation - Mucosal Erythema - Bladder Tumor 1.7 cm left sidewall polypoid [id number] DISPOSABLE SCOPE URO-G FLEXIBLE SCOPE Procedure code (CPT) selection complete Office Meds lidocaine HCl 2 % mucosal jelly in applicator Performing Provider: Jean Busch MD Performing Location: [facility] Administered by: John Salvador LPN on 02/22/25 13:32 Dose Route Admin Location Dispensed Lot Number Expiration Date FORMERLY NAMED [facility] Boiler Reliner 10 mL intra-urethral 10 mL nitrofurantoin monohydrate/macrocrystals 100 mg capsule Performing Provider: Jean Busch MD Performing Location: [facility] Administered by: John Salvador LPN on 02/22/25 13:32 Dose Route Admin Location Dispensed Lot Number Expiration Date ND Boiler Reliner 100 mg PO 1 cap Results AMB Urinalysis, Automated UA Leukoctes 0 Lianne/uL Last Edit by CORNEL Fontaine on 02/22/25 13:28 UA Nitrite Negative Last Edit by CONREL Fontaine on 02/22/25 13:28 UA Urobilinogen 0.2 mg/dL Last Edit by CORNEL Fontaine on 02/22/25 13:28 UA Protein 0 mg/dL Last Edit by CORNEL Fontaine on 02/22/25 13:28 UA pH 5.0 Last Edit by CORNEL Fontaine on 02/22/25 13:28 UA Blood 200 Cb/uL Last Edit by CORNEL Fontaine on 02/22/25 13:28 UA Specific [place] 1.015 Last Edit by CORNEL Fontaine on 02/22/25 13:2 8 UA Ketone Last Edit by CORNEL Fontaine on 02/22/25 13:28 UA Bilirubin 0 mg/dL Last Edit by CORNEL Fontaine on 02/22/25 13:28 UA Glucose 1000 mg/dL Last Edit by CORNEL Fontaine on 02/22/25 13:28 Results Reviewed Results Reviewed: Laboratory Last Values Urine pH (Auto) 5.0 02/22/25 13:22 Specific [place] (Auto) 1.015 02/22/25 13:22 Urine Protein (Auto) 0 mg/dL 02/22/25 13:22 Glucose (UA)(Auto) 1000 mg/dL 02/22/25 13:22 Urine Blood (Auto) 200 Cb/uL 02/22/25 13:22 Urine Nitrite (Auto) Negative 02/22/25 13:22 Urine Bilirubin (Auto) 0 mg/dL 02/22/25 13:22 Urine Urobilinogen (Auto) 0.2 mg/dL 02/22/25 13:22 Leukocyte Esterase (Auto) 0 Lianne/uL 02/22/25 13:22 Assessment & Plan Assessment & Plan (1) Bladder cancer: Code(s): C67.9 - Malignant neoplasm of bladder, unspecified Category: Medical Plan Plan TURBT Risks, benefits and alternatives to therapy were discussed. These include but are not limited to infection, bleeding, damage to local organs and tissues, need for further interventions. Anesthetic risks regarding cardiac arrhythmia, blood clots, and potential mortality were discussed. The patient understands the typical recovery time and the outpatient nature of the procedure. After consideration of these risks the patient gives full informed consent and they wish to move ahead with the procedure. TURBT with mitomycin-C Orders: Orders AMB Cystoscopy Today N32.89 - Other specified disorders of bladder, N39.46 - Mixed incontinence, R31.0 - Gross hematuria, R31.29 - Other microscopic hematuria, R93.41 - Abnormal radiologic findings on diagnostic imaging of renal pelvis, ureter, or bladder AMB Urinalysis Automated Today R31.0 - Gross hematuria Patient Instructions: This note is constructed using voice recognition software. While every effort has been made to ensure accuracy track maintainer errors may have been included. Imaging studies, laboratory and physical exam results were discussed and reviewed in detail. No major barriers to patient understanding were identified. An opportunity to ask questions regarding the treatment plan was provided. All questions were answered. The patient expressed understanding and agreement with the above treatment plan. The patient is aware they should contact our office by phone for worsening of their current condition or the appearance of new urologic symptoms. Compliance is encouraged with any medications and followup testing that is ordered. It is a privilege to participate in the urologic care of your patient. If you have any questions or concerns regarding treatment for the above conditions, or other urologic issues, please do not hesitate to contact me. The office telephone contact is [phone]. Sincerely, Dr Jean Busch MD, [facility] - Urology Compassionate Specialist Care for the Genitourinary System Coding Level of Care Code Est Pt Level 4 (17296) Complex EM visit Add On G2211 Diagnoses Bladder cancer C67.9 CPT Codes Cystoscopy - CPT: 81882-[id number] ([id number])
--- OUTSIDE RECORDS SUMMARY | 2025-02-22 14:38 | XMS_ITS | Encounter Summary ---
Author Organization [facility] Address [address] [place] [address] Care Team Providers Care Sales Support Representative Name Role Phone Hernan Urbina MD Primary Care Prov ider Encounter Details Date Type Department Care Team (Late Contact Info) Description 11/15/2024 Telephone [facility] ADULT DENTAL [address] [place] [address] Neha Felder DMD Social History Tobacco Use [...] Department Care Team (Late Contact Info) Description 02/22/2025 2:45 PM EDT Office Visit [facility] MED & PEDS [address] [place], [place] [phone] Hernan Urbina MD [address] [place] [address] Arrived 03/01/2025 10:15 AM EDT Telemedicine [facility] MED & PEDS [address] [place] [address] Hernan Urbina MD [address] [place] [address] 03/04/2025 2:00 PM EDT Office Visit [facility] ADULT DENTAL [address] [place] [address] Neha Felder DMD 05/03/2025 2:00 PM EDT Office Visit [facility] ADULT DENTAL [address] [place] [address] Domingo Spence documented as of this encounter Visit Diagnoses Not on filedocumented in this encounter Care Teams Sales Support Representative Relationship Specialty Start Date End Date Hernan Urbina MD [address] [place] [address] PCP - General Internal Medicine 01/21/25 documented as of this encounter
--- OUTSIDE RECORDS SUMMARY | 2025-02-22 14:38 | XMS_ITS | Encounter Summary ---
Author Organization [facility] Address [address] [facility] 7 [place] [address] Care Team Providers Care Receiving Associate Store Name Role Phone Hernan Urbina MD Primary Care Prov ider Encounter Details Date Type Department Care Team (Latest Contact Info) Description 04/15/2022 Abstract [facility] CONVERSIONS Dental, Provider, DDS Social [...] Care Team ( st Contact Info) Description 02/22/2025 2:45 PM EDT Office Visit [facility] [address] [place] [address] Hernan Urbina MD [address] [place] [address] Arrived 03/01/2025 10:15 AM EDT Telemedicine [facility] [address] [place] [address] Hernan Urbina MD [address] [place] [address] 03/04/2025 2:00 PM EDT Office Visit [facility] [address] [place] [address] Neha Felder DMD 05/03/2025 2:00 PM EDT Office Visit [facility] [address] [place] [address] Domingo Spence documented as of this encounter Visit Diagnoses Not on filedocumented in this encounter Care Teams Receiving Associate Store Relationship Specialty Start Date End Date Hernan Urbina MD [address] [place] [address] PCP - General Internal Medicine 01/21/25 documented as of this encounter
--- OUTSIDE RECORDS SUMMARY | 2025-02-22 14:38 | XMS_ITS ---
[facility] Address [address] [facility] [place] [address] Care Team Providers Care Corner Cutter Machine Operator Name Role Phone Herann Wasserman Primary Care Provider Unavailable Kathrine Cheema Unavailable [phone] Allergies Allergen (clinical drug ingredient) Drug/Non Drug [...] other tobacco user? No Vital Signs Height [id number] in 01/25/2025 Weight 137 lbs 01/25/2025 BMI 27.67 kg/m2 01/25/2025 Blood pressure systolic 130 mm Hg 01/26/20 Blood pressure diastolic 77 mm Hg 025 Encounters Encounter Location Date Provider Diagnosis [facility] [address] [address] 01/25/2025 Kathrine Anette Type 2 diabetes mellitus with polyneuropathy E11.42 Assessments Encounter Date Diagnosis (ICD Code) Assessment Notes Treatment Notes Treatment Clinical Notes Section Notes 01/25/2025 Type 2 diabetes mellitus with polyneuropathy (ICD-10 - E11.42) 01/25/2025 Other Plan Of Treatment Next Appt Details Follow Up: 2 Months, Reason: Provider Name:Kathrine Armando Jorge Luis armando, 04/05/2025 02:45:00 PM, [address] [place] [address], [phone], Procedure Notes * Category Sub-Category Detail Notes [...] instrumentation by the physician of record - 48369 Progress Notes * Hue TOLLIVER:[birth year] (69 yo F)Acc No.[id number]:01/25/2025 Progress Note Patient:?Meena TOLLIVER Provider:?Kathrine Cheema DPM :1955???Age:69 Y???Sex:Female D ate:01/25/2025 Address:[address] [place] [address], [address] [facility], [facility] [place] [facility] Pcp:Hernan wu Subjective: * Chief Complaints: * [...] - Side Effectsyes[Allergies Verified] Objective: * Vitals:?Ht: 0kw49zf, Wt:137, BMI:27.67, Shoe size: 5, BP:130/77mm Hg, [...] instrumentation by the physician of record - 87567.? * Procedure Codes:?48115 TRIM SKIN LESIONS, OVER 4, Modifiers: XS [...] Cheema DPM Date:? Generated for Osmar brito/Raheel/Bridgett on:?02/22/2025 02:33 PM EDT History and Physical Notes * [...]
--- OUTSIDE RECORDS SUMMARY | 2025-02-22 14:38 | XMS_ITS ---
Author Organization [facility] Address [address] [place] [address] Care Team Providers Care Oven Stripper Name Role Phone Hernan Wasserman Primary Care Provider Unavailable Kathrine Cheema [phone] REASON FOR VISIT r/s for sooner apt Encounters Encounter Location Date Provider Diagnosis [facility] [address] [place] [address] 11/19/2024 Kathrine Cheema Plan Of Treatment Next Appt Details Provider Name:Kathrine armando, 04/05/2025 02:45:00 PM, [address] [place], [address], Progress Notes * Judie TOLLIVERB:[birth year] (70 yo F)Acc No.[id number]:11/19/2024 Progress Note Patient:?Meena TOLLIVER Provider:?Kathrine Cheema DPM :1955???Age:69 Y???Sex:Female D ate:11/19/2024 Address:[address] [place] [address], [address], [phone] Pcp:Hernan wu Subjective: * Chief Complaints: * [...]
--- OUTSIDE RECORDS SUMMARY | 2025-02-22 14:38 | XMS_ITS ---
Author Organization [facility] Address [address] [facility] [place] [address] Care Team Providers Care Sales Consultant Insurance Name Role Phone Hernan Wasserman Primary Care Provider Unavailable Kathrine Cheema Unavailable [phone] Allergies Allergen (clinical drug ingredient) Drug/Non Drug [...] other tobacco user? No Vital Signs Height [id number] in 11/16/2024 Weight 128 lbs 11/16/2024 BMI 25.85 kg/m2 11/16/2024 Blood pressure systolic 130 mm Hg 11/16/19 25 Blood pressure diastolic 76 mm Hg 025 Encounters Encounter Location Date Provider Diagnosis [facility] [address] [address] 11/16/2024 Kathrine Cheema Type 2 diabetes mellitus [...] Details Follow Up: 2 Months, Reason: Provider Name:Ktahrine armando, 04/05/2025 02:45:00 PM, [address] [place], [address], Procedure Notes * Category Sub-Category Detail Notes [...] instrumentation by the physician of record - 40221 Progress Notes * Judie TOLLIVERB:[birth year] (69 yo F)Acc No.[id number]:11/16/2024 Progress Note Patient:?Meena TOLLIVER Provider:?Kathrine Cheema DPM :1955???Age:69 Y???Sex:Female D ate:11/16/2024 Address:[address] [place], [place] [id number] Pcp:Alvin Rodriguez Subjective: * Chief Complaints: * [...] - Side Effectsyes[Allergies Verified] Objective: * Vitals:?Ht: 8az87zs, Wt:128, BMI:25.85, Shoe size: 5, BP:130/76mm Hg, [...] instrumentation by the physician of record - 21969.? * Procedure Codes:?84534 TRIM SKIN LESIONS, OVER 4, Modifiers: XS [...] DPM Date:? Generated for Osmar brito/Raheel/Bridgett on:?02/22/2025 02:38 PM EDT History and Physical Notes * [...]
--- OUTSIDE RECORDS SUMMARY | 2025-02-22 14:38 | XMS_ITS | Encounter Summary ---
Author Organization [employer] [facility] Address [address] [facility] 7 [place] [address] Care Team Providers Care Automatic Trimming Sewer Name Role Phone Hernan Urbina MD Primary Care Prov ider Encounter Details Date Type Department Care Team (Latest Contact Info) Description 04/14/2019 Abstract [facility] CONVERSIONS Dental, Provider, DDS Social History [...] Description 02/22/2025 2:45 PM EDT Office Visit [facility] [address] [place] [address] Hernan Urbina MD [address] [place] [address] Arrived 03/01/2025 10:15 AM EDT Telemedicine [facility] [address] [place] [address] Hernan Urbina MD [address] [place] [address] 03/04/2025 2:00 PM EDT Office Visit [facility] [address] [place] [address] Neha Felder DMD 05/03/2025 2:00 PM EDT Office Visit [facility] [address] [place] [address] Domingo Spence documented as of this encounter Visit Diagnoses Not on filedocumented in this encounter Care Teams Automatic Trimming Sewer Relationship Specialty Start Date End Date Hernan Urbina MD [address] [place] [address] PCP - General Internal Medicine 01/21/25 documented as of this encounter
--- OUTSIDE RECORDS SUMMARY | 2025-02-22 14:38 | XMS_ITS | Patient Health Record ---
Author Organization [facility] Address [address] [facility] [place] [address] Care Team Providers Care Phy Therapist Name Role Phone Hernan Wasserman Primary Care Provider Unavailable Kathrine Cheema Unavailable [phone] Allergies Allergen (clinical drug ingredient) Drug/Non Drug [...] Problem Acquired hammer toe of right foot (485656027574 9105) Other hammer toe(s) (acquired), right foot (M20.41) Active confirmed Problem Acquired hammer toe of left foot (310180298453 9103) Other hammer toe(s) (acquired), left foot (M20.42) Active confirmed Problem [id number] Neuropathy (G62.9) Active confirmed Problem 53806383 Type 2 diabetes mellitus with polyneuropathy (E11.42) Active confirmed Problem 203878636 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) Active confirmed Vital Signs Blood pressure diastolic 77 mm Hg 01/25/2025 Height 6yf03bx in 01/25/2025 Blood pressure systolic 130 mm Hg 01/25/2025 Weight 137 lbs 01/25/2025 BMI 27.67 kg/m2 01/25/2025 Encounters Encounter Location Date Provider Diagnosis [facility] [address] 03/19/2024 Kathrine Cheema Type 2 diabetes mellitus with polyneuropathy E11.[address] [address] 06/15/2024 Kathrine Cheema Type 2 diabetes mellitus with polyneuropathy E11.42 [facility] [place] [address] [place] [address] 11/16/2024 Kathrine Cheema Type 2 diabetes mellitus with polyneuropathy E11.42 ; Other hammer toe(s) (acquired), right foot M20.41 and Other hammer toe(s) (acquired), left foot M20.[address] [address] 01/25/2025 Kathrine Cheema Type 2 diabetes mellitus with polyneuropathy E11.[address] [address] 06/15/2024 Kathrine Cheema [address] [address] 09/07/2024 Kathrine Cheema [address] [address] 09/07/2024 Kathrine Cheema Assessments Encounter Date Diagnosis [...] Details Provider Name:Kathrine armando, 04/05/2025 02:45:00 PM, [address] [place] [address], [phone], Insurance Providers Payer Name Payer Address Payer Phone Subscriber Number Group Number Insured Name Patient Relationship to Insured Coverage Start Date Coverage End Date [facility] [employer] Claims [address] [place] [id number] [phone] [id number] Meena Hidalgo Self - patient is the insured Medical (General) History Medical History History ICD Code type 2 diabetes depression/anxiety hyperlipidemia psychophysiological insomnia osteopenia adnexal mass HTN asthma [place] 02/24/19 fatty liver uterine fibroid Arthritis Back,Hip,and [...]
--- OUTSIDE RECORDS SUMMARY | 2025-02-22 14:38 | XMS_ITS | Clinical Summary ---
Author Organization [employer] Address [address] [facility] 7[address] [place] [address] Care Team Providers Care Nurse Name Role Phone Hernan Urbina MD Primary Care Prov ider Allergies Active Allergy Reactions Criticality Noted Date Comments Oxycodone 03/03/2017 Shrimp Extract 03/15/2016 Vitamin D (Calciferol) 12/21/2024 Medications glucose blood (FREESTYLE LITE) test strip 8 Active dapagliflozin (Farxiga) 10 MG Take 1 tablet by mouth at bed time. 9 Active apixaban (Eliquis) 5 MG tablet [...] by mouth in the morning. 4 Active SITagliptin (Januvia) 100 MG tablet Take [...] puff every 4 (four) hours if needed. 4 Active fluticasone (Flovent HFA) 110 MCG/ACT inhaler Inhale 1 puff in the morning and at bedtime. Active lisinopril 20 MG tablet Take 1 tablet (20 mg) by mouth Once per day. 30 tablet 11 5 01/22/20 26 Active Dulaglutide (Trulicity) 0.75 MG/0.5ML solution auto-injectorIn dications:Type 2 diabetes mellitus with diabetic peripheral angiopathy without gangrene, without long-term current use of insulin ([facility]) Inject 0.75 mg under the skin 1 (one) time per week. 2 mL 1 5 Active amoxicillin (Amoxil) 500 MG capsule Take 4 tabs (2 grams) 1 hour prior to dental procedure 16 capsule 3 5 Active Active Problems Problem Noted Date Diagnosed Date Encounter for screening mamm ogram for malignant neoplasm of breast 01/21/2025 Assessment & Plan (01/21/2025 10:16 AM EDT): Patient wants to undergo mammogram test Encounter to establish care 12/21/2024 Assessment & Plan (12/21/2024 9:19 AM EST): Last pcp visit 1 year at [facility] ER: November due to vaginal bleeding, back pain [facility]: 6 years ago due to MS s/p stent x2 Pmhx: DM, HTN, Cholesterol, MS s/p stent x2, CHF, atrial fibrillation Pshx: [...] Encounters Date Type Department Care Team Description 02/22/2025 Travel 02/10/2025 1:00 PM EDT Office Visit [facility] [address] [place] [address] Neha Felder DMD 02/10/2025 Telephone [facility] [address] [place] [address] Hernan Urbina MD ER Follow-up 02/07/2025 Travel 01/24/2025 Orders Only [facility] [address] [place] [address] Hernan Urbina MD 01/21/2025 9:30 AM EDT Office Visit [facility] [address] [place] [address] Hernan Urbina MD Primary hypertension (Primary Dx); Type 2 diabetes mellitus with diabetic peripheral angiopathy without gangrene, without long-term current use of insulin (CMS/HCC); Encounter for screening mammogram for malignant neoplasm of breast 01/20/2025 Travel 12/21/2024 9:00 AM EST Telemedicine [facility] [address] [place] [address] Hernan Urbina MD Encounter to establish care (Primary Dx); Chronic diastolic heart failure (CMS/HCC); Paroxysmal atrial fibrillation (CMS/HCC); Type 2 diabetes mellitus with diabetic peripheral angiopathy without gangrene, without long-term current use of insulin (CMS/HCC) 12/21/2024 Travel 12/14/2024 Travel 12/09/2024 Travel 11/30/2024 Telephone [facility] [address] [place] [address] Neha Felder DMD from Last 3 Months [...] Sign Reading Time Taken Comments Blood Pressure 120/76 02/10/2025 1:12 PM EDT Pulse 72 01/21/2025 9:20 AM EDT [...] Care Team (Late st Contact Info) Description 02/22/2025 2:45 PM EDT Office Visit [facility] [address] [place] [address] Hernan Urbina MD [address] [place] [address] Arrived 03/01/2025 10:15 AM EDT Telemedicine [facility] [address] [place] [address] Hernan Urbina MD [address] [place] [address] 03/04/2025 2:00 PM EDT Office Visit [facility] [address] [place] [address] Neha Felder DMD 05/03/2025 2:00 PM EDT Office Visit [facility] [address] [place] [address] Domingo Spence Health Maintenance Due Date Last [...] Mammogram 01/26/2021 01/26/2019, 07/05, 07/21/2018 COVID-19 Vaccine (3 - 2023- season) 2024 11/20/2021, 04/12/2021 Influenza Vaccine (#1) [...] PRESENTATION, DETAILED AND EXTENSIVE TREATMENT PLANNING Routine 02/10/2025 1:00 PM EDT 9 CROWN - PORCELAIN/CERAMIC Routine 02/10/2025 1:00 PM EDT 8 CROWN - PORCELAIN/CERAMIC Routine 02/10/2025 1:00 PM EDT ALBUMIN, RANDOM URINE W/CREATININE Routine 01/21/2025 10:40 [...] gangrene, without long-term current use of insulin ([facility]) POCT GLYCATED HEMOGLOBIN, TOTAL Routine 01/21/2025 10:01 AM EDT Type 2 diabetes mellitus with diabetic peripheral angiopathy without gangrene, without long-term current use of insulin ([facility]) POCT GLUCOSE Routine 01/21/2025 10:00 AM EDT Type 2 diabetes mellitus with diabetic peripheral angiopathy without gangrene, without long-term current use of insulin ([facility]) Full PROPHYLAXIS - ADULT Routine 08/13/2024 8:00 [...] 10:40 AM EDT) Creatinine, Urine 72.43 mg/dL [facility] Microalbumin Urine 27.0 mg/L [facility] Microalbum Creatinine Ratio Ur 37.2(H) <30 ug/mg cr [facility] Comment:Albumin/Creatinine R atio Reference Ranges: Normal: < 30 ug/mg creatinine Microalbuminuria: 30 - 300 ug/mg creatinineClinical Albuminuria: > 300 ug/mg creatinine Urine (Urine, Random) 01/21/2025 10:40 AM EDT 01/21/2025 2:08 PM EDT us Hernan Aaron MD LAB URINE ORDERABL ES Final Result [facility] [address] [place] [phone] * TSH W/Reflex to FT4 (01/21/2025 10:39 AM EDT) TSH reflex Free T4 0.75 0.32 - 4.0 uIU/mL [facility] Blood Venous blood specimen / Unknown 01/21/2025 10:39 AM EDT 01/21/2025 2:05 PM EDT Hernan Aaron MD LAB BLOOD ORDERABL ES Final Result [facility] [address] [place] [phone] * (ABNORMAL) Lipid Panel, Standard (01/21/2025 10:39 AM EDT) Triglycerides 159(H) <150 mg/dL [facility] Comment:Desirable Triglyceri de: less than 150 mg/dLBorderline High Triglyceride 150-199 mg/dLHigh Triglyceride: 200-499 mg/dLVery High Triglyceride: greater than or equal to 5OO mg/dL Cholesterol 332(H) <200 mg/dL [facility] Comment:Desirable Cholestero l: less than 200 mg/dLBorderline High Cholesterol: 200-239 mg/dLHigh Cholesterol: greater than 239 mg/dL LDL Cholesterol Calculated 247(H) <100 mg/dL [facility] Comment:Desirable LDL: less than 100 mg/dLNear Optimal/Above Optimal LDL: 110- 129 mg/dLBorderline High LDL: 130-159 mg/dLHigh LDL: 160-189 mg/dLVery High LDL: greater than or equal to 190 mg/dL HDL Cholesterol 54 >40 mg/dL [facility] Comment:Desirable HDL: great er than 40 mg/dL Note: This HDL assay may give artificially low results in patients with liver disease. Blood Venous blood specimen / Unknown 01/21/2025 10:39 AM EDT 01/21/2025 2:05 PM EDT us Hernan Aaron MD LAB BLOOD ORDERABL ES Final Result Performing Organization Address City/[facility]/ZIP Co de Phone Number [facility] [address] [place] [phone] * (ABNORMAL) Comprehensive Metabolic Panel (01/21/2025 10:39 AM EDT) Sodium 139 135 - 145 mmol/L [facility] Potassium 4.4 3.3 - 5.1 mmol/L [facility] Chloride 103 96 - 108 mmol/L [facility] Carbon Dioxide 28 22 - 29 mmol/L [facility] Anion Gap 12 12 - 20 [facility] Urea Nitrogen (BUN) 19(H) 9 - 16 mg/dL [facility] Creatinine, Serum 0.69 0.5 - 1.4 mg/dL [facility] Estimated Glomerular Filt Rate >60 [facility] Comment:Chronic Kidney Disea se: Estimated GFR < 60 mL/min/1.55a3Qwmuvb Kidney Disease: Estimated GFR < 15 mL/min/1.73m2 Glucose 209(H) 60 - 115 mg/dL [facility] Calcium 10.0 8.4 - 10.2 mg/dL [facility] Bilirubin, Total 0.8 0.0 - 1.0 mg/dL [facility] Aspartate Amino Transferase 21 5 - 31 U/L [facility] Alanine Aminotransferase 22 0 - 31 U/L [facility] Total Protein 8.2(H) 6.5 - 8.0 g/dL [facility] Albumin Level 4.5 3.5 - 5.0 g/dL [facility] Alkaline Phosphatase 83 39 - 117 U/L [facility] Blood Venous blood specimen / Unknown 01/21/2025 10:39 AM EDT 01/21/2025 2:05 PM EDT us Hernan Aaron MD LAB BLOOD ORDERABL ES Final Result [facility] [address] [place] [address] [phone] * (ABNORMAL) CBC auto differential (01/21/2025 10:34 AM EDT) White Blood Count 4.8 4.8 - 10.8 X10*3/uL [facility] Red Blood Count 4.74 4.20 - 5.50 X10*6/uL [facility] Hemoglobin 14.5 12.0 - 16.0 g/dl [facility] Hematocrit 43.4 37.0 - 47.0 % [facility] Mean Corpuscular Volume 91.6 80.0 - 98.0 fL [facility] Mean Corpuscular Hemoglobin 30.6 27.0 - 33.0 pg [facility] Mean Corpuscular HGB Conc 33.4 31.0 - 35.0 g/dl [facility] Red Cell Distribution Width 11.4 11.0 - 16.0 % [facility] Platelet Count 234 160 - 400 X10*3/uL [facility] Mean Platelet Volume 11.5 9.4 - 12.3 fL [facility] Neutrophils Percent Auto 66.6 45 - 73 % [facility] Imm Gran Pct Auto 0.2 0.0 - 0.4 % [facility] Lymphocytes Percent Auto 22.5 20 - 40 % [facility] Monocytes Percent Auto 8.8 2 - 11 % [facility] Eosinophils Percent Auto 1.7 0 - 4 % [facility] Basophils Percent Auto 0.2 0 - 2 % [facility] NRBC Pct Auto 0.0 0.0 - 0.2 /100WBC [facility] Neutrophils Absolute Auto 3.2 2.0 - 8.3 x10*3/uL [facility] Imm Gran Abs Auto 0.01 0.00 - 0.03 X10*3/uL [facility] Lymphocytes Absolute Auto 1.1(L) 1.2 - 4.9 X10*3/uL [facility] Monocytes Absolute Auto 0.4 0.1 - 1.2 X10*3/uL [facility] Eosinophils Absolute Auto 0.1 0.0 - 0.4 X10*3/uL [facility] Basophils Absolute Auto 0.0 0.0 - 0.2 X10*3/uL [facility] NRBC Abs Auto 0.000 0.0 - 0.012 X10*3/uL [facility] Blood Venous blood specimen / Unknown 01/21/2025 10:34 AM EDT 01/21/2025 2:05 PM EDT Hernan Aaron MD LAB BLOOD ORDERABL ES Final Result Performing Organization Address [facility]/ZIP Co de Phone Number [facility] [address] [place] [phone] * Hepatitis C Antibody with Reflex to HCV, RNA, Quantitative, Real-Time PCR (01/21/2025 10:34 AM EDT) Pathologist [facility] Hepatitis C Antibody Nonreactive Nonreactive [facility] Comment:Antibodies to HCV no t detected; does not exclude early acuteHCV infection. Blood Venous blood specimen / Unknown 01/21/2025 10:34 AM EDT 01/21/2025 2:05 PM EDT Hernan Aaron MD LAB BLOOD ORDERABL ES Final Result Performing Organization Address [facility] Co de Phone Number [facility] [address] [place] [phone] * HIV-1/2 Antigen and Antibodies, Fourth Generation, with Reflexes (01/21/2025 10:34 AM EDT) Pathologist [facility] HIV AB/AG Nonreactive Nonreactive [facility] Comment:HIV-1 p24 Ag and/or HIV-1/HIV-2 Ab not detected.A test result that is nonreactive does not exclude thepossibility of exposure to or infection with HIV-1 and/orHIV-2. Nonreactive results in this assay for individualswith prior exposure to HIV-1 and/or HIV-2 may be due toantigen and antibody levels that are below the limit ofdetection of this assay.The [employer] HIV Ag/Ab Combo assay result andsupplemental assay results should be interpreted inconjunction with the patient's clinical presentation,history and other laboratory results. If the results areinconsistent with clinical evidence, additional testing issuggested to confirm the result. Blood Venous blood specimen / Unknown 01/21/2025 10:34 AM EDT 01/21/2025 2:05 PM EDT Hernan Aaron MD LAB BLOOD ORDERABL ES Final Result [facility] [address] [place] [phone] * (ABNORMAL) POCT HGB A1C (01/21/2025 10:01 AM EDT) Hemoglobin A1C 8.7(A) 4.0 - 6.0 % QC Media Lot # [id number] Lot# Expiration Date , Blood 01/21/2025 10:0 1 AM EDT Hernan Aaron MD POINT OF CARE TEST ENTER/EDIT ORDERABLES Final Result * POCT Glucose (01/21/2025 10:00 AM EDT) Glucose Blood, POC 197 60 - 200 mg/dL QC Media Lot # [id number] Lot# Expiration Date 7,025 Blood Capillary blood specimen / Unknown 01/21/2025 [...] Most Recently Relevant to Health Maintenance Insurance [facility] [employer] Member Subscriber Plan / Payer (Ef fective 2022-Present) Name:Meena Hidalgo Relation to Subscriber:Self Name:Meena Hidalgo Payer ID:Not on file Group ID:[id number] Type:Not on file Address: [address] [employer] (O D-SNP) [place] [phone] DENT[facility] - [facility] [address] Care Teams Nurse Relationship Specialty Start Date End Date RajputHernan Lane MD [address] [place] [address] [place] [address] PCP - General Internal Medicine 01/21/25
--- OUTSIDE RECORDS SUMMARY | 2025-02-22 14:38 | XMS_ITS | Encounter Summary ---
Author Organization [employer] [facility] Address [address] [facility] 7 [place] [address] Care Team Providers Care Distribution Manager Name Role Phone Hernan Urbina MD Primary Care Prov ider Reason for Visit * Reason Comments Med Refill Encounter Details Date Type Department Care Team ([facility] Contact Info) Description 09/12/2023 Refill [facility] MED & PEDS [address] [place] [address] Christopher Spence MD [address] [place] [address] Social History Tobacco Use Types Packs/Day Years [...] Upcoming Encounters Date Type Department Care Team ([facility] Contact Info) Description 02/22/2025 2:45 PM EDT Office Visit [facility] MED & PEDS [address] [place] [address] Hernan Urbina MD [address] [place] [address] Arrived 03/01/2025 10:15 AM EDT Telemedicine [facility] MED & PEDS [address] [place] [address] Hernan Urbina MD [address] [place] [address] 03/04/2025 2:00 PM EDT Office Visit [facility] ADULT DENTAL [address] [place] [address] Neha Felder DMD 05/03/2025 2:00 PM EDT Office Visit [facility] ADULT DENTAL [address] [place] [address] Domingo Spence documented as of this encounter Visit Diagnoses Not on filedocumented in this encounter Care Teams Distribution Manager Relationship Specialty Start Date End Date Hernan Urbina MD [address] [place] [address] PCP - General Internal Medicine 01/21/25 documented as of this encounter
--- OUTSIDE RECORDS SUMMARY | 2025-02-22 14:38 | XMS_ITS | Encounter Summary ---
Author Organization [employer] [facility] Address [address] [facility] 7 [place] [address] Care Team Providers Care Cable Operator Name Role Phone Hernan Urbina MD Primary Care Prov ider Encounter Details Date Type Department Care Team (Latest Contact Info) Description 02/02/2021 Abstract [facility] CONVERSIONS Dental, Provider, DDS Social History Tobacco [...] Description 02/22/2025 2:45 PM EDT Office Visit [facility] MED & PEDS [address] [place] [address] Hernan Urbina MD [address] [place] [address] Arrived 03/01/2025 10:15 AM EDT Telemedicine [facility] MED & PEDS [address] [place] [address] Hernan Urbina MD [address] [place] [address] 03/04/2025 2:00 PM EDT Office Visit [facility] ADULT DENTAL [address] [place] [address] Neha Felder DMD 05/03/2025 2:00 PM EDT Office Visit [facility] ADULT DENTAL [address] [place] [address] Domingo Spence documented as of this encounter Visit Diagnoses Not on filedocumented in this encounter Care Teams Cable Operator Relationship Specialty Start Date End Date Hernan Urbina MD [address] [place] [address] PCP - General Internal Medicine 01/21/25 documented as of this encounter
--- OUTSIDE RECORDS SUMMARY | 2025-02-22 14:38 | XMS_ITS | Encounter Summary ---
Author Organization [employer] [facility] Address [address] [facility] 7 [place] [address] Care Team Providers Care Shearing Shed Worker Name Role Phone Hernan Urbina MD Primary Care Prov ider Encounter Details Date Type Department Care Team (Late Contact Info) Description 11/01/2022 Abstract [facility] ADULT DENTAL [address] [place] [address] Thompson Cobb, DDS [address] [place], [place] [phone] Social History Tobacco Use Types Packs/Day Years [...] Description 02/22/2025 2:45 PM EDT Office Visit [facility] MED & PEDS [address] [place] [address] Hernan Urbina MD [address] [place] [address] Arrived 03/01/2025 10:15 AM EDT Telemedicine [facility] MED & PEDS [address] [place] [address] Hernan Urbina MD [address] [place] [address] 03/04/2025 2:00 PM EDT Office Visit [facility] ADULT DENTAL [address] [place] [address] Neha Felder DMD 05/03/2025 2:00 PM EDT Office Visit [facility] ADULT DENTAL [address] [place] [address] Domingo Spence documented as of this encounter Visit Diagnoses Not on filedocumented in this encounter Care Teams Shearing Shed Worker Relationship Specialty Start Date End Date Hernan Urbina MD [address] [place] [address] PCP - General Internal Medicine 01/21/25 documented as of this encounter
--- OUTSIDE RECORDS SUMMARY | 2025-02-22 14:38 | XMS_ITS | Data Portability ---
Author Organization [employer] [facility] [place] [facility] Address [address] [place] [phone] Care Team Providers Care Coke Loader Name Role Phone HIM CCA OTHER Assessment Encounter Date Assessment Date Assessment LastModified by Organization Details LastModified Time 03/08/2024 03/08/2024 I provided real -time medical direction via phone for this encounter, and was available for additional phone based assistance as needed. I have reviewed and agree with the Assessment and Plan as documented by the Dining Car Server. We discussed the diagnostic uncertainty of home [...] to call 911- verbalized understanding of instruction Not available 03/08/2024 16:23:50 Plan of Treatment Reminders Order Date Submit Date Provider Last Modified By Organization Details Last Modified Time Details Appointments None recorded. Lab culture, urine 2023 024 [email or web address] [facility] (Centralized Electronic Ordering - All Locations), Patient Can Go To The Location Of Their Choice, [id number] 4 11:16:43 urinalysis , dipstick 2023 024 [email or web address] 0 [facility], [address] [place] [address], [phone] 4 15:54:29 glucose, fingerstic k, blood 2023 024 [email or web address] 0 [facility], [address] [place] [address], [address] 15:55:15 BMP, serum or plasma 2023 024 [email or web address] 0 [facility] - [address], [address] 17:20:49 Referral None recorded. Procedures None recorded. Surgeries None recorded. Imaging None recorded. Medication Orders Pyridium 100 mg tablet 2023 024 [id number], [address] [place], [place], [id number], 16:23:58 Patient TargetsNo targets recorded. Patient InstructionsNo instructions recorded. Reason for Referral None Reported. Results Created Date Observation Date Name Description Value Unit Range Abnormal Flag Note LastModifiedBy Organization Detail LastModifiedTime 03/08/20 24 03/08/2024 BMP, serum or plasm a GLU 293 Not Available Main - [facility] [address], [address] [place] [address] 03/08/2024 16:23:59 03/08/20 24 03/08/2024 gluco se, finge rstic k, blood Blood Glucose: mg/dl 313 Not Available [facility] - [address], [address] [place] [address] 03/08/2024 15:54:50 03/08/20 24 03/08/2024 urina lysis , dipst ick Leukocytes neg Not Available [facility] - [address], [address] 03/08/2024 15:52:25 03/08/20 24 03/08/2024 urina lysis , dipst ick Nitrite negati ve Not Available [facility] - [address], [address] 03/08/2024 15:52:25 03/08/20 24 03/08/2024 urina lysis , dipst ick pH 5 Not Available [facility] - [facility] [address], [address] 03/08/2024 15:52:25 03/08/20 24 03/08/2024 urina lysis , dipst ick Blood neg Not Available [facility] - [facility] [address], [address] 03/08/2024 15:52:25 03/08/20 24 03/08/2024 urina lysis , dipst ick Specific [place] 1.005 Not Available Main - [address], [address] 03/08/2024 15:52:25 03/08/20 24 03/08/2024 urina lysis , dipst ick Ketone neg Not Available [facility] - [facility] [address], [address] 03/08/2024 15:52:25 03/08/20 24 03/08/2024 urina lysis , dipst ick Glucose 3+ Not Available [facility] - [facility] [address], [address] 03/08/2024 15:52:25 03/08/20 24 03/08/2024 urina lysis , dipst ick Appearance clear Not Available [facility] - [address], [address] 03/08/2024 15:52:25 03/08/20 24 03/08/2024 urina lysis , dipst ick Color yellow Not Available [facility] - [facility] [address], [address] 03/08/2024 15:52:25 Result Notes None recorded. Medical Equipment None Reported. Allergies Allergen ID Allergen Name Allergen Category Reaction Reaction Severity Criticality Documentation Date Start Date Code Code System Note Provider Name and Address Organization Details Recorded Time 5042 Oxycontin medicatio n Not available Not available Not available 03/08/2024 96537 6 RxNorm Not Available [facility] - production 13:38:50 5043 shrimp allergeni c extract food Not available Not available Not available 03/08/2024 32546 2 RxNorm Mercy Castillo MD [address] [place] [address],[address], [place], [address], [employer] - [facility] 15:52:46 9967 metformin medicatio n Not available Not available Not available 09/02/2024 6809 RxNorm Not Available [facility] - production 13:38:50 Medications Name Sig Start Date Stop [...] Address Organization Details Last Updated DateTime 4 08872.1 44 g 98.2 [degF] 96 % 96 % 18 /min 149.86 cm 72 /min 146 mm[Hg] 81 mm[Hg] Not Available [facility] - production 4 15:50:30 Date Recorded Oxygen saturation Oxygen saturation in Arterial blood by Pulse oximetry Body temperature Heart rate Respiratory rate Systolic blood pressure Diastolic blood pressure Provider Name and Address Organization Details Last Updated DateTime 4 98 % 98 % 98.3 [degF] 106 /min 20 /min 180 mm[Hg] 92 mm[Hg] Not Available [employer] - production 15:59:56 Social History None recorded. Functional Status None recorded. Mental Status None recorded. Family History Nothing Reported. Medical History No medical history recorded. Gynecological HistoryNo gynecological history recorded. Obstetrics History GPAL:G 0 P 0 0 0 0 Past Encounters Encounter ID Performer Location Encounter Start Date Encounter Closed Date Diagnosis/Indication Diagnosis SNOMED-CT Code Diagnosis ICD10 Code Diagnosis Note [id number] Mercy Castillo MD [facility] - [facility] [address] [place] [phone] 03/08/2024 15:50:25 03/09/2024 11:54:56 Urinary symptoms 238410376 R39.9 No evidence of UTI based on dip she has glycosuria which could be causing the urgency and frequency- bmp ordered- nl renal function/ stable H & H.Will send urine culture and will call if UC positive for infection. Pat request Rx to go to [address]- made aware of Good RX card to defray cost - also have otc version- advised will turn urine bright orangey red- can stain underwear/ advised wearing pad for 3 -4 days PC team: Had bagels and grapes today- needs dietary consult re lower glycemic index foods- medic attempted to explain [id number] LYUDMILA DAMIAN MD Main - [facility] [address] [place] [phone] 09/02/2024 15:51:56 09/02/2024 21:41:56 Pain in right hip joint 8526376100 30130 M25.551 Evaluation in the field was performed by my warp coiler colleague, as noted above, I provided real-time [...] and treatment. -An expect was called at [facility] Primary care, consider__ _ Dispositio n:We discussed the situation and I recommende d referral to the emergency department . An expect was called at [facility] Health Concerns Section Related Observation LastModified by Organization Detai ls LastModified Time None Recorded Concern Status LastModified by Organization Details LastModified Time None Recorded Advance Directives Directive None Recorded Payers Encounter Date Sequence Insurance Name Policy Number Policy Meza Covered Member ID Meza Member ID Guarantor Name 03/08/2024 1 [facility] - DOS ON OR AFTER 2023 - DUAL ELIGIBLE - FDC OPTIONS AND ONE CARE (MEDICARE REPLACEMENT/ADV ANTAGE - HMO) Meena Hidalgo [id number] Meena Hidalgo 09/02/2024 1 [facility] - DOS ON OR AFTER 2023 - DUAL ELIGIBLE - FDC OPTIONS AND ONE CARE (MEDICARE REPLACEMENT/ADV ANTAGE - HMO) Meena Hidalgo [id number] Meena Hidalgo Notes Date Note Type Note [...] UTI/Pyelonephritis , Abdominal Pain Allergies: Unknown Comments: Drying Equipment Operator verified the member's name//address and phone number. [...] - S/S for 3 days. Wellness check. Dining Car Server POC Test Results from [facility] Urine Dipstick (1) [17:03] Urine leukocytes: - [...] .................. .................. .................. .................. .................. .................. ............... Dining Car Server Note From [employer] [facility]: Sent to a [...] she has history of diabetes, CHF, and DE. Pt states she takes Farxiga, Januvia, and Glipizide. Pt also takes Eliquis. Pt reports allergy to Oxycontin, causing hallucinations. BP:146/81, P:72, RR:18, SpO2:96% RA, T:98.2, B; Head: unremarkable; Lung sounds: clear bilaterally; Abdomen: soft, non-tender, distention; Back: no CVA tenderness; Extremities: no peripheral edema; Skin: pink, warm, dry; Urine sample obtained: yellow, clear, concentrated; Urine dip results: uploaded to [facility]. [facility] consulted and orders POC bloodwork and urine culture to be sent to [facility]. Venous blood draw performed; Istat Chem8+ results: uploaded to [facility]. [facility] sends script to pt's pharmacy for pyridium. [...] .................. ............... Disposition: Fulfilled Mercy Castillo MD [address] [place] [address],[address], [place], [address], [employer] [facility] 03/08/2024 17:20:55 09/02/2024 text/html HPI: Mbr called [...] .................. .................. .................. .................. .................. .................. ............... Dining Car Server Note From Arjun Hubbard: Dispatched to the [...] afebrile, mucous membranes pink and moist, -edema, [facility] consulted. 911 called on behalf of the Pt, [facility] transported Pt to [facility]. ALL times are approx. .................. .................. .................. .................. .................. .................. .................. ............... [facility] Consulted: Lyudmila Damian .................. .................. .................. .................. .................. .................. .................. ............... Disposition: Sarah DAMIAN MD [address] [facility],[address], [place], [address], [facility] 09/02/2024 19:04:26 OBGyn Episode No OBEpisode recorded.
--- OUTSIDE RECORDS SUMMARY | 2025-02-22 14:38 | XMS_ITS | Encounter Summary ---
Author Organization [employer] Address [address] [facility] [address] 7[address] [place] [address] Care Team Providers Care Tongue Binder Name Role Phone Hernan Urbina MD Primary Care Prov ider Encounter Details Date Type Department Care Team (Latest Contact Info) Description 02/22/2025 Travel Social History Tobacco Use Types Packs/Day [...] 2:45 PM EDT Office Visit [facility] MED & PEDS [address] [place] [address] Hernan Urbina MD [address] [place] [address] Arrived 03/01/2025 10:15 AM EDT Telemedicine [facility] MED & PEDS [address] [place] [address] Hernan Urbina MD [address] [place] [address] 03/04/2025 2:00 PM EDT Office Visit [facility] ADULT DENTAL [address] [place] [address] Neha Felder DMD 05/03/2025 2:00 PM EDT Office Visit [facility] ADULT DENTAL [address] [place] [address] Domingo Spence documented as of this encounter Visit Diagnoses Not on filedocumented in this encounter Additional Health Concerns Assessment Noted Time PHQ-9 Depression Total Score: 2 12/21/19 8:57 AM EST documented as of this encounter Care Teams Tongue Binder Relationship Specialty Start Date End Date Hernan Urbina MD [address] [place] [address] PCP - General Internal Medicine 01/21/25 documented as of this encounter
--- OUTSIDE RECORDS SUMMARY | 2025-02-22 14:38 | XMS_ITS | Encounter Summary ---
Author Organization [employer] Address [address] [facility] [address] [facility] [address] 7[address] [place] [address] Care Team Providers Care Hollow Tile Partition Erector Name Role Phone Hernan Urbina MD Primary Care Prov ider Reason for Visit * Reason Onset Date Comments Appointment 05/20/2023 Encounter Details Date Type Department Care Team (Late st Contact Info) Description 05/20/2023 Telephone [facility] ADULT DENTAL [address] [place] [address] Thompson Cobb DDS [address] [place] [address] Appointment Social History Tobacco Use Types Packs/Day [...] Miscellaneous Notes * Telephone Encounter - Seda Wilikns - 05/20/2023 2:50 PM EDT Meena Hidalgo 1955 Patient called in and asked if Pre -op medication was sent to pharmacy.Patient stated she called pharmacy and nothing was sent yet patient appt is on 05/29/23. Please advise documented in this encounter Plan of Treatment Upcoming Encounters Date Type Department Care Team (Late st Contact Info) Description 02/22/2025 2:45 PM EDT Office Visit [facility] MED & PEDS [address] [place] [address] Hernan Urbina MD [address] [place] [address] Arrived 03/01/2025 10:15 AM EDT Telemedicine [facility] MED & PEDS [address] [place] [address] Hernan Urbina MD [address] [place] [address] 03/04/2025 2:00 PM EDT Office Visit [facility] ADULT DENTAL [address] [place] [address] Neha Felder DMD 05/03/2025 2:00 PM EDT Office Visit [facility] ADULT DENTAL [address] [place] [address] Domingo Spence documented as of this encounter Visit Diagnoses Not on filedocumented in this encounter Care Teams Hollow Tile Partition Erector Relationship Specialty Start Date End Date Hernan Urbina MD [address] [place] [address] PCP - General Internal Medicine 01/21/25 documented as of this encounter
--- OUTSIDE RECORDS SUMMARY | 2025-02-22 14:38 | XMS_ITS | Encounter Summary ---
Author Organization [facility] Address [address] [address] [address] [place] [address] Care Team Providers Care Medical Scientist Name Role Phone Hernan Urbina MD Primary Care Prov ider Encounter Details Date Type Department Care Team (Late Contact Info) Description 08/10/2024 Telephone [facility] ADULT DENTAL [address] [place] [address] Neha Felder DMD Social History Tobacco Use [...] Description 02/22/2025 2:45 PM EDT Office Visit [facility]C MED & PEDS [address] [place] [address] Hernan Urbina MD [address] [place], [place] [address] Arrived 03/01/2025 10:15 AM EDT Telemedicine [facility] MED & PEDS [address] [place] [address] Hernan Urbina MD [address] [place] [address] 03/04/2025 2:00 PM EDT Office Visit [facility] ADULT DENTAL [address] [place] [address] Neha Felder DMD 05/03/2025 2:00 PM EDT Office Visit [facility] ADULT DENTAL [address] [place] [address] Domingo Spence documented as of this encounter Visit Diagnoses Not on filedocumented in this encounter Care Teams Medical Scientist Relationship Specialty Start Date End Date Hernan Urbina MD [address] [place] [address] PCP - General Internal Medicine 01/21/25 documented as of this encounter
--- OUTSIDE RECORDS SUMMARY | 2025-02-22 14:38 | XMS_ITS | Encounter Summary ---
Author Organization [employer] Address [address] [place] [address] Care Team Providers Care Mosaicist Name Role Phone Herann Urbina MD Primary Care Prov ider Encounter Details Date Type Department Care Team (Late st Contact Info) Description 01/24/2025 Orders Only [facility] MED & PEDS [address] [place], [place] [phone] Hernan Urbina MD [address] [place] [address] Social History Tobacco Use Types Packs/Day Years [...] 2:45 PM EDT Office Visit [facility] MED & PEDS [address] [place] [address] Hernan Urbina MD [address] [place] [address] Arrived 03/01/2025 10:15 AM EDT Telemedicine [facility] MED & PEDS [address] [place] [address] Hernan Urbina MD [address] [place] [address] 03/04/2025 2:00 PM EDT Office Visit [facility] ADULT DENTAL [address] [place] [address] Neha Felder DMD 05/03/2025 2:00 PM EDT Office Visit [facility] ADULT DENTAL [address] [place] [address] Domingo Spence documented as of this encounter Visit Diagnoses Not on filedocumented in this encounter Additional Health Concerns Assessment Noted Time PHQ-9 Depression Total Score: 2 12/21/19 25 8:57 AM EST documented as of this encounter Care Teams Mosaicist Relationship Specialty Start Date End Date Hernan Urbina MD [address] [place] [address] PCP - General Internal Medicine 01/21/25 documented as of this encounter
== END 2025-02-22 13:58 | disposition home or self-care (01) ==
LOC: HO.HUSH 12:21
PROVIDERS: PCP Internal Medicine; Visit Provider Urology
DX: C67.2 Malignant neoplasm of lateral wall of bladder (principal); R31.29 Other microscopic hematuria; R31.0 Gross hematuria; N32.89 Other specified disorders of bladder; R93.41 Abnormal radiologic findings on diagnostic imaging of renal pelvis, ureter, or bladder; N39.46 Mixed incontinence
CPT/HCPCS: 52000; 99214; G2211

== ENCOUNTER → 2025-02-22 12:20 | Outpatient (BNVA) | payer OTHER, SELFPAY | PROVIDERS: PCP Internal Medicine; Visit Provider Urology | DX: C67.9 Malignant neoplasm of bladder, unspecified (principal) | CPT/HCPCS: 52000; 81003; 99212 ==

== ENCOUNTER 2025-03-07 09:15 | Day surgery (SDC) | payer OTHER, SELFPAY ==
--- OUTSIDE RECORDS SUMMARY | 2025-03-03 09:39 | XMS_ITS | Encounter Summary ---
Author Organization [employer] [facility] Address [address] [facility] 7 [place] [address] Care Team Providers Care Digital Project Manager Name Role Phone Hernan Urbina MD Primary Care Prov ider Encounter Details Date Type Department Care Team (Latest Contact Info) Description 04/15/2022 Abstract [facility] CONVERSIONS Dental, Provider, DDS Social [...] Care Team ( st Contact Info) Description 03/04/2025 2:00 PM EDT Office Visit [facility] ADULT DENTAL [address] [place] [address] Neha Felder DMD 03/29/2025 2:15 PM EDT Telemedicine [facility] MED & PEDS [address] [place] [address] Hernan Urbina MD [address] [place] [address] 05/03/2025 2:00 PM EDT Office Visit [facility] ADULT DENTAL [address] [place] [address] Domingo Spence documented as of this encounter Visit Diagnoses Not on filedocumented in this encounter Care Teams Digital Project Manager Relationship Specialty Start Date End Date Hernan Urbina MD [address] [place] [address] PCP - General Internal Medicine 01/21/25 documented as of this encounter
--- OUTSIDE RECORDS SUMMARY | 2025-03-03 09:39 | XMS_ITS | Encounter Summary ---
Author Organization [employer] Address [address] [place] [address] Care Team Providers Care Blood Bank Custodian Name Role Phone Hernan Urbina MD Primary Care Prov ider Encounter Details Date Type Department Care Team (Late st Contact Info) Description 01/24/2025 Orders Only [facility] MED & PEDS [address] [place], [place] [phone] Hernan Urbina MD [address] [place] [address] Social History Tobacco Use Types Packs/Day Years [...] Care Team (Late st Contact Info) Description 03/04/2025 2:00 PM EDT Office Visit [facility] ADULT DENTAL [address] [place] [address] Neha Felder DMD 03/29/2025 2:15 PM EDT Telemedicine [facility] MED & PEDS [address] [place] [address] Hernan Urbina MD [address] [place] [address] 05/03/2025 2:00 PM EDT Office Visit [facility] ADULT DENTAL [address] [place] [address] Domingo Spence documented as of this encounter Visit Diagnoses Not on filedocumented in this encounter Additional Health Concerns Assessment Noted Time PHQ-9 Depression Total Score: 2 12/21/19 8:57 AM EST documented as of this encounter Care Teams Blood Bank Custodian Relationship Specialty Start Date End Date Hernan Urbina MD [address] [place] [address] PCP - General Internal Medicine 01/21/25 documented as of this encounter
--- OUTSIDE RECORDS SUMMARY | 2025-03-03 09:39 | XMS_ITS | Encounter Summary ---
Author Organization [employer] [facility] Address [address] [facility] 7 [place] [address] Care Team Providers Care Camp Tender Name Role Phone Hernan Urbina MD Primary Care Prov ider Reason for Visit * Reason Comments Med Refill Encounter Details Date Type Department Care Team ([facility] Contact Info) Description 09/12/2023 Refill [facility] MED & [facility]EDS [address] [place], [place] [phone] Christopher Spence MD [address] [place], [place] [phone] Social History Tobacco Use Types Packs/Day Years [...] Upcoming Encounters Date Type Department Care Team ([facility] Contact Info) Description 03/04/2025 2:00 PM EDT Office Visit [facility] ADULT DENTAL [address] [place], [place] [phone] Neha Felder DMD 03/29/2025 2:15 PM EDT Telemedicine [facility] MED [facility] [address] [place], [place] [phone] Hernan Urbina MD [address] [place], [place] [phone] 05/03/2025 2:00 PM EDT Office Visit [facility] ADULT DENTAL [address] [place] [address] Domingo Spence documented as of this encounter Visit Diagnoses Not on filedocumented in this encounter Care Teams Camp Tender Relationship Specialty Start Date End Date Hernan Urbina MD [address] [place] [address] PCP - General Internal Medicine 01/21/25 documented as of this encounter
--- OUTSIDE RECORDS SUMMARY | 2025-03-03 09:39 | XMS_ITS ---
Author Organization [facility] Address [address] [facility] [place] [address] Care Team Providers Care Official Greeter Name Role Phone Hernan Wasserman Primary Care Provider Unavailable Kathrine Cheema Unavailable [phone] Allergies Allergen (clinical drug ingredient) Drug/Non Drug [...] other tobacco user? No Vital Signs Height 5qw96cd in 01/25/2025 Weight 137 lbs 01/25/2025 BMI 27.67 kg/m2 01/25/2025 Blood pressure systolic 130 mm Hg 01/26/20 Blood pressure diastolic 77 mm Hg 025 Encounters Encounter Location Date Provider Diagnosis [facility] [address] [address] 01/25/2025 Kathrine Anette Type 2 diabetes mellitus with polyneuropathy E11.42 Assessments Encounter Date Diagnosis (ICD Code) Assessment Notes Treatment Notes Treatment Clinical Notes Section Notes 01/25/2025 Type 2 diabetes mellitus with polyneuropathy (ICD-10 - E11.42) 01/25/2025 Other Plan Of Treatment Next Appt Details Follow Up: 2 Months, Reason: Provider Name:Kathrine Armando Jorge Luis armando, 04/05/2025 02:45:00 PM, [address] [place] [address], [phone], Procedure Notes * Category Sub-Category Detail Notes [...] instrumentation by the physician of record - [id number] Progress Notes * Hue TOLLIVER:[birth year] (69 yo F)Acc No.[id number]:01/25/2025 Progress Note Patient:?Meena TOLLIVER Provider:?Kathrine Cheema DPM :1955???Age:69 Y???Sex:Female D ate:01/25/2025 Address:[address] [place] [address], [address] [facility], [facility] Pcp:Hernan wu Subjective: * Chief Complaints: * [...] - Side Effectsyes[Allergies Verified] Objective: * Vitals:?Ht: 7qz01yo, Wt:137, BMI:27.67, Shoe size: 5, BP:130/77mm Hg, [...] instrumentation by the physician of record - [id number].? * Procedure Codes:?25010 TRIM SKIN LESIONS, OVER 4, Modifiers: XS [...] Cheema DPM Date:? Generated for Osmar brito/Raheel/Bridgett on:?03/03/2025 09:39 AM EDT History and Physical Notes * [...]
--- OUTSIDE RECORDS SUMMARY | 2025-03-03 09:39 | XMS_ITS | Encounter Summary ---
Author Organization [employer] [facility] Address [address] 7[address] [place] [address] Care Team Providers Care Hydrostatic Tubing Tester Name Role Phone Hernan Urbina MD Primary Care Prov ider Encounter Details Date Type Department Care Team (Late st Contact Info) Description 08/10/2024 Telephone [facility] ADULT DENTAL [address] [place] [address] Neha Felder DMD Social History Tobacco Use [...] Department Care Team (Late Contact Info) Description 03/04/2025 2:00 PM EDT Office Visit [facility] ADULT D[facility]AL [address] [place] [address] Neha Felder DMD 03/29/2025 2:15 PM EDT Telemedicine [facility] MED & PEDS [address] [place] [address] Hernan Urbina MD [address] [place] [address] 05/03/2025 2:00 PM EDT Office Visit [facility] ADULT DENTAL [address] [place] [address] Domingo Spence documented as of this encounter Visit Diagnoses Not on filedocumented in this encounter Care Teams Hydrostatic Tubing Tester Relationship Specialty Start Date End Date Hernan Urbina MD [address] [place] [address] PCP - General Internal Medicine 01/21/25 documented as of this encounter
--- OUTSIDE RECORDS SUMMARY | 2025-03-03 09:39 | XMS_ITS ---
Author Organization [facility] Address [address] [place] [address] Care Team Providers Care Collections Clerk Name Role Phone Hernan Wasserman Primary Care Provider Unavailable Kathrine Cheema [phone] REASON FOR VISIT r/s for sooner apt Encounters Encounter Location Date Provider Diagnosis [facility] [address] [place] [address] 11/19/2024 Kahtrine Cheema Plan Of Treatment Next Appt Details Provider Name:Kathrine armando, 04/05/2025 02:45:00 PM, [address] [place], [phone], Progress Notes * Judie TOLLIVERB:[birth year] (70 yo F)Acc No.[id number]:11/19/2024 Progress Note Patient:?Meena TOLLIVER Provider:?Kathrine Cheema DPM :1955???Age:69 Y???Sex:Female D ate:11/19/2024 Address:[address] [place] [address], [address], [phone] Pcp:Hernan wu Subjective: * Chief Complaints: * [...]
--- OUTSIDE RECORDS SUMMARY | 2025-03-03 09:39 | XMS_ITS | Clinical Summary ---
Author Organization [employer] Address [address] 7t [place] [address] Care Team Providers Care Supervisor Wet Room Name Role Phone Hernan Urbina MD Primary Care Prov ider Allergies Active Allergy Reactions Criticality Noted Date Comments Oxycodone 03/03/2017 Shrimp Extract 03/15/2016 Vitamin D (Calciferol) 12/21/2024 Medications glucose blood (FREESTYLE LITE) test strip Active dapagliflozin (Farxiga) 10 MG Take 1 tablet by mouth at bed time. Active apixaban (Eliquis) 5 MG tablet Take 1 tablet by mouth every 12 (twelve) hours. Active rosuvastatin (Crestor) 10 MG tablet Take 1 tablet by mouth in the morning. Active celecoxib (CeleBREX) 100 MG capsule Take 100 mg by mouth in the morning. Active metoprolol succinate XL (Toprol-XL) 200 MG 24 hr tablet Take 200 mg by mouth in the morning. Active SITagliptin (Januvia) 100 MG tablet Take [...] puff every 4 (four) hours if needed. Active fluticasone (Flovent HFA) 110 MCG/ACT inhaler Inhale 1 puff in the morning and at bedtime. Active amoxicillin (Amoxil) 500 MG capsule Take 4 tabs (2 grams) 1 hour prior to dental procedure 16 capsule 3 Active lisinopril 40 MG tablet Take 1 tablet (40 mg) by mouth Once per day. 90 tablet 3 025 2025 Active Trulicity 0.75 MG/0.5ML solution auto-injector Indications:T ype 2 diabetes mellitus with diabetic peripheral angiopathy without gangrene, without long-term current use of insulin (CMS/HCC) INJECT ONE PEN (=0.75MG) SUBCUTANEOUSLY ONCE A WEEK DIRECTED 2 mL 1 025 Active lisinopril 20 MG tablet Take 1 tablet (20 mg) by mouth Once per day. 30 tablet 11 025 2024 Discontinued(R eorder (will not trigger notification to Pharmacy)) Dulaglutide (Trulicity) 0.75 MG/0.5ML solution auto-injector Indications:T ype 2 diabetes mellitus with diabetic peripheral angiopathy without gangrene, without long-term current use of insulin (CMS/HCC) Inject 0.75 mg under the skin 1 (one) time per week. 2 mL 1 025 2024 Discontinued Active Problems Problem Noted Date Diagnosed Date Encounter for screening mamm ogram for malignant neoplasm of breast 01/21/2025 Assessment & Plan (01/21/2025 10:16 AM EDT): Patient wants to undergo mammogram test Encounter to establish care 12/21/2024 Assessment & Plan (12/21/2024 9:19 AM EST): Last pcp visit 1 year at [facility]: November due to vaginal bleeding, back pain [facility]: 6 years ago due to [facility] s/p stent x2 Pmhx: DM, HTN, Cholesterol, [facility] s/p stent x2, CHF, atrial fibrillation Pshx: rotary cuff left arm 2004, csec , hand CTS right 2004, right trigger finger 2009 Meds: as above Chronic diastolic heart failure 12/21/2024 Assessment & Plan (12/21/2024 12:17 PM EST): Followed by cardiology, no recent exacerbation or hospitalization Paroxysmal atrial fibrillation 12/21/2024 Assessment & Plan (12/21/2024 12:28 PM EST): [place], but she refers has been avoiding it [...] Encounters Date Type Department Care Team Description 03/02/2025 Refill [facility] MED & PEDS [address] [place] [address] Hernan Urbina MD Type 2 diabetes mellitus with diabetic peripheral angiopathy without gangrene, without long-term current use of insulin ([facility]) 02/25/2025 Travel 02/22/2025 2:45 PM EDT Office Visit [facility] [address] [place] [address] Hernan Urbina MD Gross hematuria (Primary Dx); Primary hypertension 02/22/2025 Travel 02/10/2025 1:00 PM EDT Office Visit [facility] ADULT DENTAL [address] [place] [address] Neha Felder, GLORIA 02/10/2025 Telephone [facility] [address] [place] [address] Hernan Urbina MD ER Follow-up 02/07/2025 Travel 01/24/2025 Orders Only [facility] [address] [place] [address] Hernan Urbina MD 01/21/2025 9:30 AM EDT Office Visit [facility] [address] [place] [address] Hernan Urbina MD Primary hypertension (Primary Dx); Type 2 diabetes mellitus with diabetic peripheral angiopathy without gangrene, without long-term current use of insulin (CMS/HCC); Encounter for screening mammogram for malignant neoplasm of breast 01/20/2025 Travel 12/21/2024 9:00 AM EST Telemedicine [facility] [address] [place] [address] Hernan Urbina MD Encounter to establish care (Primary Dx); Chronic diastolic heart failure (CMS/HCC); Paroxysmal atrial fibrillation (CMS/HCC); Type 2 diabetes mellitus with diabetic peripheral angiopathy without gangrene, without long-term current use of insulin (CMS/HCC) 12/21/2024 Travel 12/14/2024 Travel 12/09/2024 Travel from Last 3 Months Family History [...] Sign Reading Time Taken Comments Blood Pressure 144/77 02/22/2025 2:47 PM EDT Pulse 74 02/22/2025 2:47 PM EDT Temperature 36.8 ??C (98.2 ??F) 02/22/2025 2:47 PM ED T Respiratory Rate 18 02/22/2025 2:47 PM EDT Oxygen Saturation 98% 02/22/2025 2:47 PM EDT Inhaled Oxygen Concentration - - Weight 59.7 kg (131 lb 9.6 oz) 02/22/2025 2:47 P M EDT Height 151 cm (4' 11.45 ) 02/22/2025 2:47 PM EDT Body Mass Index 26.18 02/22/2025 2:47 PM EDT Plan of Treatment Upcoming Encounters Date Type Department Care Team (Late st Contact Info) Description 03/04/2025 2:00 PM EDT Office Visit [facility] ADULT DENTAL [address] [place] [address] Neha Felder DMD 03/29/2025 2:15 PM EDT Telemedicine [facility] [address] [place], [place] [phone] Hernan Urbina MD [address] [place] [address] 05/03/2025 2:00 PM EDT Office Visit [facility] ADULT D[facility] [address] [place] [address] Domingo Spence Health Maintenance Due Date Last [...] 01/26/2021 01/26/2019, 07/05, 07/21/2018 COVID-19 Vaccine ( season) 2024 11/20/2021, 04/12/2021 Influenza Vaccine (#1) [...] long-term current use of insulin (CMS/HCC) POCT GLUCOSE Routine 01/21/2025 10:00 AM EDT Type 2 diabetes mellitus with diabetic peripheral angiopathy without gangrene, without long-term current use of insulin (CMS/HCC) Full PROPHYLAXIS - ADULT Routine 08/13/2024 8:00 [...] 10:40 AM EDT) Creatinine, Urine 72.43 mg/dL [facility] Microalbumin Urine 27.0 mg/L H [facility] Microalbum Creatinine Ratio Ur 37.2(H) <30 ug/mg cr [facility] Comment:Albumin/Creatinine R atio Reference Ranges: Normal: < 30 ug/mg creatinine Microalbuminuria: 30 - 300 ug/mg creatinineClinical Albuminuria: > 300 ug/mg creatinine Urine (Urine, Random) 01/21/2025 10:40 AM EDT 01/21/2025 2:08 PM EDT us Hernan Aaron MD LAB URINE ORDERABL ES Final Result Performing Organization Address [facility] Co de Phone Number [facility] [address] [place] [phone] * TSH W/Reflex to FT4 (01/21/2025 10:39 AM EDT) TSH reflex Free T4 0.75 0.32 - 4.0 uIU/mL [facility] Blood Venous blood specimen / Unknown 01/21/2025 10:39 AM EDT 01/21/2025 2:05 PM EDT us Hernan Aaron MD LAB BLOOD ORDERABL ES Final Result Performing Organization Address [facility] de Phone Number [facility] [address] [place] [phone] * (ABNORMAL) Lipid Panel, Standard (01/21/2025 10:39 AM EDT) Triglycerides 159(H) <150 mg/dL [facility] Comment:Desirable Triglyceri de: less than 150 mg/dLBorderline High Triglyceride 150-199 mg/dLHigh Triglyceride: 200-499 mg/dLVery High Triglyceride: greater than or equal to 5OO mg/dL Cholesterol 332(H) <200 mg/dL [facility] Comment:Desirable Cholestero l: less than 200 mg/dLBorderline High Cholesterol: 200-239 mg/dLHigh Cholesterol: greater than 239 mg/dL LDL Cholesterol Calculated 247(H) <100 mg/dL [facility] Comment:Desirable LDL: less than 100 mg/dLNear Optimal/Above Optimal LDL: 110- 129 mg/dLBorderline High LDL: 130-159 mg/dLHigh LDL: 160-189 mg/dLVery High LDL: greater than or equal to 190 mg/dL HDL Cholesterol 54 >40 mg/dL [facility] Comment:Desirable HDL: great er than 40 mg/dL Note: This HDL assay may give artificially low results in patients with liver disease. Blood Venous blood specimen / Unknown 01/21/2025 10:39 AM EDT 01/21/2025 2:05 PM EDT us Hernan Aaron MD LAB BLOOD ORDERABL ES Final Result [facility] [address] [place] [phone] [phone] * (ABNORMAL) Comprehensive Metabolic Panel (01/21/2025 10:39 AM EDT) Sodium 139 135 - 145 mmol/L [facility] Potassium 4.4 3.3 - 5.1 mmol/L [facility] Chloride 103 96 - 108 mmol/L [facility] Carbon Dioxide 28 22 - 29 mmol/L [facility] Anion Gap 12 12 - 20 [facility] Urea Nitrogen (BUN) 19(H) 9 - 16 mg/dL [facility] Creatinine, Serum 0.69 0.5 - 1.4 mg/dL [facility] Estimated Glomerular Filt Rate >60 [facility] Comment:Chronic Kidney Disea se: Estimated GFR < 60 mL/min/1.90n2Vkwtlw Kidney Disease: Estimated GFR < 15 mL/min/1.73m2 Glucose 209(H) 60 - 115 mg/dL [facility] Calcium 10.0 8.4 - 10.2 mg/dL [facility] Bilirubin, Total 0.8 0.0 - 1.0 mg/dL [facility] Aspartate Amino Transferase 21 5 - 31 U/L [facility] Alanine Aminotransferase 22 0 - 31 U/L [facility] Total Protein 8.2(H) 6.5 - 8.0 g/dL [facility] Albumin Level 4.5 3.5 - 5.0 g/dL [facility] Alkaline Phosphatase 83 39 - 117 U/L [facility] Blood Venous blood specimen / Unknown 01/21/2025 10:39 AM EDT 01/21/2025 2:05 PM EDT us Hernan Aaron MD LAB BLOOD ORDERABL ES Final Result [facility] [address] [place] [address] [phone] * (ABNORMAL) CBC auto differential (01/21/2025 10:34 AM EDT) White Blood Count 4.8 4.8 - 10.8 X10*3/uL [facility] Red Blood Count 4.74 4.20 - 5.50 X10*6/uL [facility] Hemoglobin 14.5 12.0 - 16.0 g/dl [facility] Hematocrit 43.4 37.0 - 47.0 % [facility] Mean Corpuscular Volume 91.6 80.0 - 98.0 fL [facility] Mean Corpuscular Hemoglobin 30.6 27.0 - 33.0 pg [facility] Mean Corpuscular HGB Conc 33.4 31.0 - 35.0 g/dl [facility] Red Cell Distribution Width 11.4 11.0 - 16.0 % [facility] Platelet Count 234 160 - 400 X10*3/uL [facility] Mean Platelet Volume 11.5 9.4 - 12.3 fL [facility] Neutrophils Percent Auto 66.6 45 - 73 % [facility] Imm Gran Pct Auto 0.2 0.0 - 0.4 % [facility] Lymphocytes Percent Auto 22.5 20 - 40 % [facility] Monocytes Percent Auto 8.8 2 - 11 % [facility] Eosinophils Percent Auto 1.7 0 - 4 % [facility] Basophils Percent Auto 0.2 0 - 2 % [facility] NRBC Pct Auto 0.0 0.0 - 0.2 /100WBC [facility] Neutrophils Absolute Auto 3.2 2.0 - 8.3 x10*3/uL [facility] Imm Gran Abs Auto 0.01 0.00 - 0.03 X10*3/uL [facility] Lymphocytes Absolute Auto 1.1(L) 1.2 - 4.9 X10*3/uL [facility] Monocytes Absolute Auto 0.4 0.1 - 1.2 X10*3/uL [facility] Eosinophils Absolute Auto 0.1 0.0 - 0.4 X10*3/uL [facility] Basophils Absolute Auto 0.0 0.0 - 0.2 X10*3/uL [facility] NRBC Abs Auto 0.000 0.0 - 0.012 X10*3/uL [facility] Blood Venous blood specimen / Unknown 01/21/2025 10:34 AM EDT 01/21/2025 2:05 PM EDT Hernan Aaron MD LAB BLOOD ORDERABL ES Final Result [facility] [address] [place] [phone] * Hepatitis C Antibody with Reflex to HCV, RNA, Quantitative, Real-Time PCR (01/21/2025 10:34 AM EDT) Hepatitis C Antibody Nonreactive Nonreactive [facility] Comment:Antibodies to HCV no t detected; does not exclude early acuteHCV infection. Blood Venous blood specimen / Unknown 01/21/2025 10:34 AM EDT 01/21/2025 2:05 PM EDT Hernan Aaron MD LAB BLOOD ORDERABL ES Final Result Performing Organization Address [facility] Co de Phone Number [facility] [address] [place] [phone] * HIV-1/2 Antigen and Antibodies, Fourth Generation, with Reflexes (01/21/2025 10:34 AM EDT) HIV AB/AG Nonreactive Nonreactive [facility] Comment:HIV-1 p24 Ag and/or HIV-1/HIV-2 Ab not detected.A test result that is nonreactive does not exclude thepossibility of exposure to or infection with HIV-1 and/orHIV-2. Nonreactive results in this assay for individualswith prior exposure to HIV-1 and/or HIV-2 may be due toantigen and antibody levels that are below the limit ofdetection of this assay.The eMoov HIV Ag/Ab Combo assay result andsupplemental assay results should be interpreted inconjunction with the patient's clinical presentation,history and other laboratory results. If the results areinconsistent with clinical evidence, additional testing issuggested to confirm the result. Blood Venous blood specimen / Unknown 01/21/2025 10:34 AM EDT 01/21/2025 2:05 PM EDT us Hernan Aaron MD LAB BLOOD ORDERABL ES Final Result Performing Organization Address [facility] Co de Phone Number [facility] [address] [place] [phone] * (ABNORMAL) POCT HGB A1C (01/21/2025 10:01 AM EDT) Hemoglobin A1C 8.7(A) 4.0 - 6.0 % QC Media Lot # [id number] Lot# Expiration Date Blood 01/21/2025 10:0 1 AM EDT us Hernan Aaron MD POINT OF CARE TEST ENTER/EDIT ORDERABLES Final Result * POCT Glucose (01/21/2025 10:00 AM EDT) Glucose Blood, POC 197 60 - 200 mg/dL [employer] Media Lot # [id number] Lot# Expiration Date Blood Capillary blood specimen / Unknown 01/21/2025 10:00 AM EDT us Hernan Aaron MD POINT OF CARE TEST [...] Most Recently Relevant to Health Maintenance Insurance [facility] [employer] (O D-SNP) [place] [id number] [facility] [employer] (O D-SNP) [facility] [place] [address] Care Teams Supervisor Wet Room Relationship Specialty Start Date End Date Hernan Urbina MD [address] [place] [address] [place] [address] PCP - General Internal Medicine 01/21/25
--- OUTSIDE RECORDS SUMMARY | 2025-03-03 09:39 | XMS_ITS | Encounter Summary ---
Author Organization [employer] Address [address] [place] [address] Care Team Providers Care Multimedia Producer Name Role Phone Hernan Urbina MD Primary Care Prov ider Reason for Visit * Reason Onset Date Comments Appointment 05/20/2023 Encounter Details Date Type Department Care Team (Late st Contact Info) Description 05/20/2023 Telephone [facility] [address] [place] [address] Thompson Cobb DDS [address] [place] [address] Appointment Social History Tobacco Use Types Packs/Day [...] Miscellaneous Notes * Telephone Encounter - Seda Franky - 05/20/2023 2:50 PM EDT Meena Hidalgo 1955 Patient called in and asked if Pre -op medication was sent to pharmacy.Patient stated she called pharmacy and nothing was sent yet patient appt is on 05/29/23. Please advise documented in this encounter Plan of Treatment Upcoming Encounters Date Type Department Care Team (Late st Contact Info) Description 03/04/2025 2:00 PM EDT Office Visit [facility] [address] [place] [address] Neha Felder DMD 03/29/2025 2:15 PM EDT Telemedicine [facility] [address] [place] [address] Hernan Urbian MD [address] [place] [address] 05/03/2025 2:00 PM EDT Office Visit [facility] [address] [place] [address] Domingo Spence documented as of this encounter Visit Diagnoses Not on filedocumented in this encounter Care Teams Multimedia Producer Relationship Specialty Start Date End Date Hernan Urbina MD [address] [place] [address] PCP - General Internal Medicine 01/21/25 documented as of this encounter
--- OUTSIDE RECORDS SUMMARY | 2025-03-03 09:39 | XMS_ITS | Encounter Summary ---
Author Organization [employer] [facility] Address [address] [facility] 7t [place] [address] Care Team Providers Care Sticker Machine Operator Name Role Phone Hernan Urbina MD Primary Care Prov ider Encounter Details Date Type Department Care Team (Late Contact Info) Description 11/01/2022 Abstract [facility] ADULT DENTAL [address] [place], [place] [phone] Thompson Cobb, DDS [address] [place] [address] Social History Tobacco Use Types Packs/Day Years [...] [facility] ADULT DENTAL [address] [place] [address] Neha Felder DMD 03/29/2025 2:15 PM EDT Telemedicine [facility] MED & PEDS [address] [place], [place] [phone] Hernan Urbina MD [address] [place] [address] 05/03/2025 2:00 PM EDT Office Visit [facility] ADULT DENTAL [address] [place] [address] Domingo Spence documented as of this encounter Visit Diagnoses Not on filedocumented in this encounter Care Teams Sticker Machine Operator Relationship Specialty Start Date End Date Hernan Urbina MD [address] [place] [id number] PCP - General Internal Medicine 01/21/25 documented as of this encounter
--- OUTSIDE RECORDS SUMMARY | 2025-03-03 09:39 | XMS_ITS | Encounter Summary ---
Author Organization [facility] Address [address] 7[address] [place] [address] Care Team Providers Care Legal Support Analyst Name Role Phone Hernan Urbina MD Primary Care Prov ider Encounter Details Date Type Department Care Team (Late st Contact Info) Description 11/15/2024 Telephone [facility] ADULT DENTAL [address] [place] [address] Neha Felder DMD Social History Tobacco Use [...] Description 03/04/2025 2:00 PM EDT Office Visit [facility] ADULT DENTAL [address] [place] [address] Neha Felder DMD 03/29/2025 2:15 PM EDT Telemedicine [facility] MED & PEDS [address] [place], [place] [phone] Hernan Urbina MD [address] [place] [address] 05/03/2025 2:00 PM EDT Office Visit [facility] ADULT DENTAL [address] [place] [address] Domingo Spence documented as of this encounter Visit Diagnoses Not on filedocumented in this encounter Care Teams Legal Support Analyst Relationship Specialty Start Date End Date Hernan Urbina MD [address] [place] [address] PCP - General Internal Medicine 01/21/25 documented as of this encounter
--- OUTSIDE RECORDS SUMMARY | 2025-03-03 09:39 | XMS_ITS | Encounter Summary ---
Author Organization [employer] [facility] Address [address] [facility] 7 [place] [address] Care Team Providers Care Distribution Transformer Assembler Name Role Phone Hernan Urbina MD Primary Care Prov ider Encounter Details Date Type Department Care Team (Latest Contact Info) Description 02/02/[address] [facility] CONVERSIONS Dental, Provider, DDS Social [...] 2:00 PM EDT Office Visit [facility] ADULT DENTAL [address] [place] [address] Neha Felder DMD 03/29/2025 2:15 PM EDT Telemedicine [facility] MED & PED[facility] [address] [place] [address] Hernan Urbina MD [address] [place] [address] 05/03/2025 2:00 PM EDT Office Visit [facility] ADULT DENT[facility] [address] [place] [address] Domingo Spence documented as of this encounter Visit Diagnoses Not on filedocumented in this encounter Care Teams Distribution Transformer Assembler Relationship Specialty Start Date End Date Hernan Urbina MD [address] [place] [address] PCP - General Internal Medicine 01/21/25 documented as of this encounter
--- OUTSIDE RECORDS SUMMARY | 2025-03-03 09:39 | XMS_ITS | Encounter Summary ---
Author Organization [employer] [facility] Address [address] [facility] 7 [place] [address] Care Team Providers Care Health Center Assistant Name Role Phone Hernan Urbina MD Primary Care Prov ider Encounter Details Date Type Department Care Team (Latest Contact Info) Description 04/14/2019 Abstract [facility] CONVERSIONS Dental, Provider, DDS Social History [...] Description 03/04/2025 2:00 PM EDT Office Visit [facility] ADULT DENTAL [address] [place] [address] Neha Felder DMD 03/29/2025 2:15 PM EDT Telemedicine [facility] MED & PEDS [address] [place] [address] Hernan Urbina MD [address] [place] [address] 05/03/2025 2:00 PM EDT Office Visit [facility] ADULT DENTAL [address] [place] [address] Domingo Spence documented as of this encounter Visit Diagnoses Not on filedocumented in this encounter Care Teams Health Center Assistant Relationship Specialty Start Date End Date Hernan Urbina MD [address] [place] [address] PCP - General Internal Medicine 01/21/25 documented as of this encounter
--- OUTSIDE RECORDS SUMMARY | 2025-03-03 09:39 | XMS_ITS | Encounter Summary ---
Author Organization [employer] Address [address] 7[address] [place] [address] Care Team Providers Care Supervisor Customer Services Name Role Phone Hernan Urbina MD Primary Care Prov ider Reason for Visit * Reason Comments Med Refill Encounter Details Date Type Department Care Team ([facility] st Contact Info) Description 03/02/2025 Refill [facility] MED & PEDS [address] [place] [address] Hernan Urbina MD [address] [place] [address] Type 2 diabetes mellitus with diabetic peripheral angiopathy without gangrene, without long-term current use of insulin ([facility]) Social History Tobacco Use Types Packs/Day Years [...] 03/04/2025 2:00 PM EDT Office Visit [facility] ADULT DENTAL [address] [place] [address] Neha Felder DMD 03/29/2025 2:15 PM EDT Telemedicine [facility] MED & PEDS [address] [place] [address] Hernan Urbina MD [address] [place] [address] 05/03/2025 2:00 PM EDT Office Visit [facility] ADULT DENTAL [address] [place] [address] Dmoingo Spence documented as of this encounter Visit Diagnoses Diagnosis Type 2 diabetes mellitus with diabetic peripheral angiopathy without gangrene, without long-term current use of insulin ([facility]) documented in this encounter Additional Health Concerns Assessment Noted Time PHQ-9 Depression Total Score: 2 12/21/19 25 8:57 AM EST documented as of this encounter Care Teams Supervisor Customer Services Relationship Specialty Start Date End Date Hernan Urbina MD [address] [place] [address] PCP - General Internal Medicine 01/21/25 documented as of this encounter
--- OUTSIDE RECORDS SUMMARY | 2025-03-03 09:40 | XMS_ITS | Patient Health Record ---
Author Organization [facility] Address [address] [facility] [place] [address] Care Team Providers Care Pr Intern Name Role Phone Hernan Wasserman Primary Care Provider Unavailable Kathrine Cheema Unavailable [phone] Allergies Allergen (clinical drug ingredient) Drug/Non Drug [...] Problem Acquired hammer toe of right foot (587785591370 9105) Other hammer toe(s) (acquired), right foot (M20.41) Active confirmed Problem Acquired hammer toe of left foot (849188785745 9103) Other hammer toe(s) (acquired), left foot (M20.42) Active confirmed Problem [id number] Neuropathy (G62.9) Active confirmed Problem 97944177 Type 2 diabetes mellitus with polyneuropathy (E11.42) Active confirmed Problem 853803104 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) Active confirmed Vital Signs Blood pressure diastolic 77 mm Hg 01/25/2025 Height 2jr33mu in 01/25/2025 Blood pressure systolic 130 mm Hg 01/25/2025 Weight 137 lbs 01/25/2025 BMI 27.67 kg/m2 01/25/2025 Encounters Encounter [facility] Date [facility] [address] [facility]/19[facility]2024 Kathrine Cheema Type 2 diabetes mellitus with polyneuropathy E11.[address] [address] 06/15/2024 Kathrine Cheema Type 2 diabetes mellitus with polyneuropathy E11.42 [facility] [place] [address] [place] [address] 11/16/2024 Kathrine Cheema Type 2 diabetes mellitus with polyneuropathy E11.42 ; Other hammer toe(s) (acquired), right foot M20.41 and Other hammer toe(s) (acquired), left foot M20.[address] [address] 01/25/2025 Kathrine Cheema Type 2 diabetes mellitus with polyneuropathy E11.[address] [address] 06/15/2024 Kathrine Cheema [address] [address] 09/07/2024 Kathrine Cheema [address] [address] 09/07/2024 Kathrine Cheema Assessments Encounter Date Diagnosis [...] Details Provider Name:Kathrine armando, 04/05/2025 02:45:00 PM, [address] [place] [address], [phone], Insurance Providers Payer Name Payer Address Payer Phone Subscriber Number Group Number Insured Name Patient Relationship to Insured Coverage Start Date Coverage End Date [facility] [employer] Claims [address] [place] Rodríguez [phone] [id number] Meena Hidalgo Self - patient is the insured Medical (General) History Medical History History ICD Code type 2 diabetes depression/anxiety hyperlipidemia psychophysiological insomnia osteopenia adnexal mass HTN asthma GA 02/24/19 fatty liver uterine fibroid Arthritis Back,Hip,and [...]
--- OUTSIDE RECORDS SUMMARY | 2025-03-03 09:40 | XMS_ITS ---
Author Organization [facility] Address [address] [facility] [place] [address] Care Team Providers Care Social Service Coordinator Name Role Phone Hernan Wasserman Primary Care Provider Unavailable Kathrine Cheema Unavailable [phone] Allergies Allergen (clinical drug ingredient) Drug/Non Drug [...] other tobacco user? No Vital Signs Height 2su85wd in 11/16/2024 Weight 128 lbs 11/16/2024 BMI 25.85 kg/m2 11/16/2024 Blood pressure systolic 130 mm Hg 11/16/19 25 Blood pressure diastolic 76 mm Hg 025 Encounters Encounter Location Date Provider Diagnosis [facility] [address] [address] 11/16/2024 Kathrine Cheema Type 2 diabetes mellitus [...] Provider Name:Kathrine armando, 04/05/2025 02:45:00 PM, [address] [place], [address], Procedure Notes * Category Sub-Category Detail Notes [...] instrumentation by the physician of record - [id number] Progress Notes * Judie TOLLIVERB:[birth year] (69 yo F)Acc No.[id number]:11/16/2024 Progress Note Patient:?Meena TOLLIVER Provider:?Kathrine Cheema DPM :1955???Age:69 Y???Sex:Female D ate:11/16/2024 Address:[address] [place], [place] [id number] Pcp:Alvin Rodriguez Subjective: * Chief Complaints: * [...] - Side Effectsyes[Allergies Verified] Objective: * Vitals:?Ht: 5ob84uj, Wt:128, BMI:25.85, Shoe size: 5, BP:130/76mm Hg, [...] instrumentation by the physician of record - 35255.? * Procedure Codes:?21366 TRIM SKIN LESIONS, OVER 4, Modifiers: XS [...] DPM Date:? Generated for Osmar brito/Raheel/Bridgett on:?03/03/2025 09:40 AM EDT History and Physical Notes * [...]
[2025-03-07] VITALS (12 sets, daily range): BP systolic 125–156; BP diastolic 48–77; PULSE 62–74; RESP 14–16; TEMP 36.5–36.8; O2SAT 95–98; BMI 26.3
[2025-03-07 09:43] LABS: Glucose, Whole Blood 226 mg/dL (60-115)
[2025-03-07] MEDS: Lactated Ringers 1,000 ML 80 ML IVCONT (09:45)
--- NOTE | 2025-03-07 09:48 | MHC.SHP ---
Pre-Procedural Eval Section A - 24 Hr Update-Section A only Date of Service: 03/07/25 The patient is an INPATIENT: No Changes since office visit: No Cold of Flu in the past 2 weeks, No New Medical Problems, No Changes in Medication and No Patient answered all questions The patient has been examined within 24 hours of the surgical procedure. The History & Physical has been completed within 30 days and I have reviewed it.: No Section B - Complete if H&P > 30 days Chief Complaint: Malignant neoplasm of bladder, unspecified Details of Present Illness: Bladder cancer on imaging. Plan for cystoscopy with TURBT and mitomycin-C with cytarabine Relevant Social History: None Present Medications: see Short Stay Collaborative assessment Medical History: No relevant PMH History of Previous Operations: No relevant previous surgery Allergies: Allergies Allergy/AdvReac Type Severity Reaction Status Date / Time atorvastatin [From LIPITOR] AdvReac Intermediate STOMACH Verified 02/22/25 13:06 ACHE oxycodone [From OXYCONTIN] AdvReac Intermediate SENSORY Verified 02/22/25 13:06 HALLUCINATIONS sulfamethoxazole AdvReac Intermediate chills Verified 02/22/25 13:06 [From Bactrim] vitamin d AdvReac Intermediate Hallucinati Uncoded 02/22/25 13:06 ons Review of Systems Sugical H&P ROS: Negative: Constitution, Cardiovascular, Respiratory, Neurological, Psychiatric, Hem-Onc, Allergic/Immunologic, Gastrointestinal, Genitourinary, Musculoskeletal, Integumentary, Endocrine and Eyes/Ears/Nose/Throat Exam Surgical H&P Exam: Normal: HEENT, Normal: Heart, Normal: Lungs, Normal: Extremities, Normal: Abdomen, Normal: Skin and Normal: Neurological Plan Diagnosis/Plan: Unchanged (Superficial bladder cancer plan for resection with mitomycin-C and cytarabine) I have reviewed the history and physical and performed a pertinent physical examination on my patient. No changes have occurred unless specified. Time Spent With Patient Time: Total time managing care of this patient today ____ minutes.
--- NOTE | 2025-03-07 09:54 | P.OP_ITS ---
Operative Note Operative Note Date of Service: 03/07/25 Narrative: PreOperative Diagnosis: bladder cancer Post Operative Diagnosis: bladder cancer - Tumor size 2 cm, location left ureteric orifice Procedure: 1) TURBT 2) LEFT STENT PLACEMENT 3) MITOMYCIN-C AND CYTARABINE INSTALLATION Surgeon: Dr Jean Busch Anesthesia: general Indications for procedure: 2 cm lesion found on imaging. Confirmed in office cystoscopy. Procedure: After informed consent was verified the patient was brought to the operating room and placed in a supine position. Anesthesia was administered per protocol. The patient was placed in a modified dorsal lithotomy position and prepped and draped in a sterile fashion. Safety pause time-out was performed. Antibiotics were confirmed. A 26 [place] continuous flow resectoscope was inserted per urethra. The visual obturator was used in order to minimize potential for urethral damage. 50 cc of urine collected to send for Uro vision cytology. Lesions found to be setting proximally 5 mm to 8 mm back from the left ureteric orifice. There was also small frondular elements on the left ureteric orifice. Using the bipolar resectoscope the lesion was resected from the mucosa. Mucosal layer removed. Fulguration performed. Since there was also small frondular elements at the left ureteric orifice a decision was made to place a left ureteric stent to allow fulguration around left ureteric orifice. A sensor guidewire was placed. A 6 [place] by 22 cm stent was placed as she is only 5 ft 10. Fulguration was performed of the frondular elements emerging from the left ureteric orifice. At the completion of the procedure the bladder was irrigated. The cystoscope was removed. A [address] catheter was inserted into the bladder. 10 cc was placed in the balloon. Mitomycin-C and cytarabine was instilled into the bladder. The flow from the catheter was left clamped. The inflow to the catheter was attached to a 3 L normal saline bag. The patient tolerated the procedure well. They were extubated in the operating room and transferred in stable condition to the recovery area. Mitomycin-C and cytarabine will remain in the bladder for 1 hour. At the completion of 1 hour the clamp will be removed. The mitomycin-C and cytarabine will be allowed to egress to the urine collection bag. The 3 L bag of normal saline will be run at maximum rate through the bladder in order to dilute any residual mitomycin-C and cytarabine. The Damon catheter will then be removed. Pathology: 1. Tumor bladder 2. Urine molecular cytology Drains: Eighteen [place] three-way Damon as described
--- NOTE | 2025-03-07 10:13 | HO.ANESPROP2 ---
HPI - Anesthesia Eval Consult details Narrative: for cysto, bladder tumor, mitimicin. PMFSH Active Problems Active Problems: All Active Problems Bladder cancer (Acute) Gross hematuria (Acute) Microscopic hematuria (Acute) Abnormal ultrasound of bladder (Acute) Postmenopausal bleeding (Acute) Metformin adverse reaction (Acute) Urinary incontinence, mixed (Acute) Lumbago (Acute) Impingement syndrome of left shoulder (Acute) Lumbar spondylosis (Acute) Oropharyngeal dysphagia (Acute) COVID-19 vaccination refused (Acute) Refused influenza vaccine (Acute) Anxiety as acute reaction to gross stress (Acute) Mild intermittent asthma in adult without complication (Acute) OAB (overactive bladder) (Acute) Paresthesia of right leg (Acute) Diabetes mellitus with microalbuminuria, without long-term current use of insulin (Acute) Recurrent UTI (Acute) Osteoarthritis, knee (Acute) Osteopenia after menopause (Acute) Overweight (Acute) Varicose veins of right lower extremity (Acute) 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 (Acute) Hypertension (Acute) PAF (paroxysmal atrial fibrillation) (Acute) Refused pneumococcal vaccination (Acute) Dyslipidemia (Acute) Past Medical History Medical History (Updated 02/22/25 @ 13:56 by Jean Busch MD) Bladder mass Metformin adverse reaction Urinary incontinence, mixed Oropharyngeal dysphagia COVID-19 vaccination refused Refused influenza vaccine Diabetes mellitus with hyperglycemia, without long-term current use of insulin Anxiety as acute reaction to gross stress Mild intermittent asthma in adult without complication OAB (overactive bladder) Diabetes mellitus with microalbuminuria, without long-term current use of insulin Osteoarthritis, knee History of depression Osteopenia after menopause Overweight Varicose veins of right lower extremity History of ST elevation myocardial infarction (STEMI) 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 Family History Family History Father No problems noted. Mother No problems noted. Brother Diabetes mellitus Daughter Mental health disorder Son Mental health disorder Family history of problems with anesthesia: No Surgical History Surgical History History of section Hx of myomectomy S/P left rotator cuff repair History of heart artery stent History of Problems with Anesthesia: No Social History Social History Housing: Apartment Alcohol intake: current Alcohol intake frequency: does not drink Patient Tobacco Use Status: Never used Tobacco e-Cigarette/Vaping Use: Never Used Second Hand Smoke Exposure: No Use of substances other than those prescribed or required for medical reasons: No Have you been hit, kicked, punched, or otherwise hurt by someone within the past year? 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 Current occupational exposures/hazards: No Cognitive needs: No Hearing needs: No Vision needs: Yes Meds Allergies Allergy/AdvReac Type Severity Reaction Status Date / Time atorvastatin [From LIPITOR] AdvReac Intermediate STOMACH Verified 02/22/25 13:06 ACHE oxycodone [From OXYCONTIN] AdvReac Intermediate SENSORY Verified 02/22/25 13:06 HALLUCINATIONS sulfamethoxazole AdvReac Intermediate chills Verified 02/22/25 13:06 [From Bactrim] vitamin d AdvReac Intermediate Hallucinati Uncoded 02/22/25 13:06 ons Active Medications: Current Medications Levofloxacin (Levaquin) 500 mg in 100 mls @ 100 mls/hr IV PREOP ONE Stop: 03/07/25 10:15 Lactated Ringer's (Lr) 1,000 mls @ 80 mls/hr IVCONT .[id number] MALINI Last Admin: 03/07/25 09:45 Dose: 80 mls/hr Home Medications ?Medication ?Instructions ?Recorded ?Confirmed ?Last Taken ?Type lancets 28 gauge (FreeStyle #100 ea 08/03/20 01/10/25 Unknown History Lancets) metoprolol succinate 200 mg 200 mg PO DAILY 06/26/21 01/10/25 Unknown History tablet,extended release 24 hr nitroglycerin 0.4 mg sublingual 0 mg sublingual 09/19/22 01/10/25 Unknown History tablet multivitamin 1 tab PO DAILY 10/07/23 01/10/25 Unknown History artificial drp ophthalmic (eye) 09/23/24 01/10/25 Unknown History tears(crduoiq-dvfcpujt-lzyapqd) 0.1 %-0.3 %-0.2 % eye drops celecoxib 100 mg capsule (Celebrex) 100 mg PO DAILY PRN 10/15/24 01/10/25 Unknown History Exam Height,Weight and Vital Signs: Height 4 ft 11 in Weight 58.967 kg Last Vital Signs Temp 97.7 F 03/07/25 09:40 Pulse 74 03/07/25 09:40 Resp 16 03/07/25 09:40 BP 154/67 H 03/07/25 09:40 Pulse Ox 96 03/07/25 09:40 O2 Del Method Room Air 03/07/25 09:40 Pertinent Lab Results Pertinent Lab Results: Laboratory Tests 03/07/25 09:37 POC Glucose 226 H Airway Mallampati Class: II TM Dist: <=3cm Neck ROM: Full Loose/Missing/Broken Teeth: No Heart: ok Lungs: ok Assessment and Plan Assessment Anesthesia Assessment: Anesthesia Plan Discussed and Chart Reviewed Final Anesthetic Review Family History of Problems with Anesthesia: No History of Problems with Anesthesia: No NPO: Yes ASA Class: IV Final Preanesthetic Review: No Changes in Pt Med Stat, Meds/Allgs Chart Reviewed, Consent Obtained/Reviewed and Anes Risks/Benef Reviewed Patient Risk: High Procedure Risk: Low Anesthetic Plan Anesthetic Plan: GA and Agree w/ Assess. and Plan Disposition: Standard PACU
[2025-03-07] MEDS: levoFLOXacin/D5W 500 MG/100 ML PIGGYBACK 100 MG IV (10:41)
[2025-03-07] MEDS: Acetaminophen 325 MG TABLET 975 MG PO (11:41)
[2025-03-07] MEDS: oxyCODONE HCl Immed Release 5 MG TABLET PO (12:30)
== END 2025-03-07 14:06 | disposition home or self-care (01) ==
PROVIDERS: PCP Internal Medicine; Visit Provider Urology
PROC: 0TBB8ZZ Excision of Bladder, Via Natural or Artificial Opening Endoscopic (ICD-10-PCS; CPT 52235; principal; 2025-03-07 12:10)
DX: C67.6 Malignant neoplasm of ureteric orifice (principal); N39.46 Mixed incontinence; N32.81 Overactive bladder; E11.65 Type 2 diabetes mellitus with hyperglycemia; J45.20 Mild intermittent asthma, uncomplicated; F41.1 Generalized anxiety disorder; F43.0 Acute stress reaction; I25.10 Atherosclerotic heart disease of native coronary artery without angina pectoris; I10 Essential (primary) hypertension; I25.2 Old myocardial infarction; E78.5 Hyperlipidemia, unspecified; R31.0 Gross hematuria; Z79.51 Long term (current) use of inhaled steroids; Z79.84 Long term (current) use of oral hypoglycemic drugs; Z79.899 Other long term (current) drug therapy; Z88.8 Allergy status to other drugs, medicaments and biological substances; Z88.2 Allergy status to sulfonamides; Z88.5 Allergy status to narcotic agent; Z95.5 Presence of coronary angioplasty implant and graft
CPT/HCPCS: 52235; 52332; 51720; 82947; 88307; C1758; C1769; C2617; J1956; J2003; J2704; J3010; J9100; J9280

== ENCOUNTER → 2025-03-07 09:15 | Outpatient (BNV) | payer OTHER, SELFPAY | PROVIDERS: PCP Internal Medicine; Visit Provider Urology | DX: C67.9 Malignant neoplasm of bladder, unspecified (principal) | CPT/HCPCS: 52234 ==

== ENCOUNTER 2025-03-17 12:27 | Outpatient (REF) | payer OTHER, SELFPAY ==
--- OUTSIDE RECORDS SUMMARY | 2025-03-17 14:03 | XMS_ITS | Encounter Summary ---
Author Organization [facility] Address [address] [facility] 7 [place] [address] Care Team Providers Care Carbon Brusher Assembler Name Role Phone Hernan Urbina MD Primary Care Prov ider Encounter Details Date Type Department Care Team (Late st Contact Info) Description 11/01/2022 Abstract [facility] ADULT DENTAL [address] [place] [address] Thompson Cobb, DDS [address] [place] [address] Social History Tobacco Use Types Packs/Day Years [...] Info) Description 03/29/2025 2:15 PM EDT Telemedicine [facility] MED & PEDS [address] [place] [address] Hernan Urbina MD [address] [place] [address] 05/03/2025 2:00 PM EDT Office Visit [facility] ADULT DENTAL [address] [place], [place] [phone] Domingo Spence documented as of this encounter Visit Diagnoses Not on filedocumented in this encounter Care Teams Carbon Brusher Assembler Relationship Specialty Start Date End Date Hernan Urbina MD [address] [place] [address] PCP - General Internal Medicine 01/21/25 documented as of this encounter
--- OUTSIDE RECORDS SUMMARY | 2025-03-17 14:03 | XMS_ITS | Encounter Summary ---
Author Organization [employer] Address [address] [facility] [address] 7t [place] [address] Care Team Providers Care Sorting Livestock Worker Name Role Phone Hernan Urbina MD Primary Care Prov ider Reason for Visit * Reason Onset Date Comments Appointment 05/20/2023 Encounter Details Date Type Department Care Team ([facility] st Contact Info) Description 05/20/2023 Telephone C [facility] [address] [place] [address] Thompson Cobb DDS [address] [facility] [place] [address] Appointment Social History Tobacco Use Types Packs/Day [...] Info) Description 03/29/2025 2:15 PM EDT Telemedicine [facility] MED & PEDS [address] [place] [address] Hernan Urbina MD [address] [place] [address] 05/03/2025 2:00 PM EDT Office Visit [facility] ADULT DENTAL [address] [place] [address] Domingo Spence documented as of this encounter Visit Diagnoses Not on filedocumented in this encounter Care Teams Sorting Livestock Worker Relationship Specialty Start Date End Date Hernan Urbina MD [address] [place] [address] PCP - General Internal Medicine 01/21/25 documented as of this encounter
--- OUTSIDE RECORDS SUMMARY | 2025-03-17 14:03 | XMS_ITS | Encounter Summary ---
Author Organization [employer] Address [address] 7[address] [place] [address] Care Team Providers Care Optical Glass Silverer Name Role Phone Hernan Urbina MD Primary Care Prov ider Encounter Details Date Type Department Care Team (Late st Contact Info) Description 08/10/2024 Telephone [facility] ADULT DENTAL [address] [place] [address] Neha Felder DMD Social History Tobacco Use [...] Info) Description 03/29/2025 2:15 PM EDT Telemedicine [facility] CHC MED & PEDS [address] [place], [place] [phone] Hernan Urbina MD [address] [place], [place] [phone] 05/03/2025 2:00 PM EDT Office Visit [facility] ADULT DENTAL [address] [place] [address] Domingo Spence documented as of this encounter Visit Diagnoses Not on filedocumented in this encounter Care Teams Optical Glass Silverer Relationship Specialty Start Date End Date Hernan Urbina MD [address] [place] [address] PCP - General Internal Medicine 01/21/25 documented as of this encounter
--- OUTSIDE RECORDS SUMMARY | 2025-03-17 14:03 | XMS_ITS | Encounter Summary ---
Author Organization [employer] Address [address] [place] [address] 7 [place] [address] Care Team Providers Care Project Engineer Name Role Phone Hernan Urbina MD Primary Care Prov ider Reason for Visit * Reason Comments Med Refill Encounter Details Date Type Department Care Team ([facility] Contact Info) Description 09/12/2023 Refill [facility] MED & PEDS [address] [place], [place] [phone] Christopher Spence MD [address] [place], [place] [phone] Social History Tobacco Use Types Packs/Day Years [...] Encounters Date Type Department Care Team ([facility] Contact Info) Description 03/29/2025 2:15 PM EDT Telemedicine [facility] CHC MED & PEDS [address] [place] [address] Hernan Urbina MD [address] [place] [address] 05/03/2025 2:00 PM EDT Office Visit [facility] ADULT DENTAL [address] [place], [place] [phone] Domingo Spence documented as of this encounter Visit Diagnoses Not on filedocumented in this encounter Care Teams Project Engineer Relationship Specialty Start Date End Date Hernan Urbina MD [address] [place] [address] PCP - General Internal Medicine 01/21/25 documented as of this encounter
--- OUTSIDE RECORDS SUMMARY | 2025-03-17 14:03 | XMS_ITS | Encounter Summary ---
Author Organization [employer] [facility] Address 75 [facility] 7 [place] [address] Care Team Providers Care Commodity Broker Name Role Phone Hernan Urbina MD Primary Care Prov ider Encounter Details Date Type Department Care Team (Latest Contact Info) Description 04/14/2019 Abstract [facility] CONVERSIONS Dental, Provider, DDS Social [...] 03/29/2025 2:15 PM EDT Telemedicine [facility] MED & PEDS [address] [place] [address] Hernan Urbina MD [address] [place] [address] 05/03/2025 2:00 PM EDT Office Visit [facility] ADULT DENTAL [address] [place] [address] Domingo Spence documented as of this encounter Visit Diagnoses Not on filedocumented in this encounter Care Teams Commodity Broker Relationship Specialty Start Date End Date Hernan Urbina MD [address] [place] [address] PCP - General Internal Medicine 01/21/25 documented as of this encounter
--- OUTSIDE RECORDS SUMMARY | 2025-03-17 14:03 | XMS_ITS | Encounter Summary ---
Author Organization [employer] [facility] Address 75 [facility] 7 [place] [address] Care Team Providers Care Analyst Competitive Intelligence Name Role Phone Hernan Urbina MD Primary Care Prov ider Encounter Details Date Type Department Care Team (Latest Contact Info) Description 04/15/2022 Abstract [facility] CONVERSIONS Dental, Provider, DDS Social History [...] [facility] [address] [place] [address] Hernan Urbina MD [address] [place] [address] 05/03/2025 2:00 PM EDT Office Visit [facility] ADULT DENTAL [address] [place] [address] Domingo Spence documented as of this encounter Visit Diagnoses Not on filedocumented in this encounter Care Teams Analyst Competitive Intelligence Relationship Specialty Start Date End Date Hernan Urbina MD [address] [place] [address] PCP - General Internal Medicine 01/21/25 documented as of this encounter
--- OUTSIDE RECORDS SUMMARY | 2025-03-17 14:03 | XMS_ITS | Encounter Summary ---
Author Organization [employer] Address 75 [facility] 7t [place] [address] Care Team Providers Care Shoe Caser Name Role Phone Hernan Urbina MD Primary Care Prov ider Encounter Details Date Type Department Care Team (Late st Contact Info) Description 01/24/2025 Orders Only [facility] MED & PEDS [address] [place], [place] [phone] Hernan Urbina MD [address] [place] [address] Social History Tobacco Use Types Packs/Day Years [...] 03/29/2025 2:15 PM EDT Telemedicine [facility] MED & PEDS [address] [place] [address] Hernan Urbina MD [address] [place] [address] 05/03/2025 2:00 PM EDT Office Visit [facility] ADULT DENTAL [address] [place] [address] Domingo Spence documented as of this encounter Visit Diagnoses Not on filedocumented in this encounter Additional Health Concerns Assessment Noted Time PHQ-9 Depression Total Score: 2 12/21/19 8:57 AM EST documented as of this encounter Care Teams Shoe Caser Relationship Specialty Start Date End Date Hernan Urbina MD [address] [place] [address] PCP - General Internal Medicine 01/21/25 documented as of this encounter
--- OUTSIDE RECORDS SUMMARY | 2025-03-17 14:03 | XMS_ITS | Encounter Summary ---
Author Organization [employer] Address [address] [facility] [address] 7[address] [place] [address] Care Team Providers Care Pulp Mill Operator Name Role Phone Hernan Urbina MD Primary Care Prov ider Encounter Details Date Type Department Care Team (Late st Contact Info) Description 11/15/2024 Telephone [facility] ADULT DENTAL [address] [place] [address] Neha Felder DMD Social History Tobacco Use [...] Info) Description 03/29/2025 2:15 PM EDT Telemedicine [facility] MED & PEDS [address] [place], [place] [phone] Hernan Urbina MD [address] [place] [address] 05/03/2025 2:00 PM EDT Office Visit [facility] ADULT D[facility]AL [address] [place] [address] Domingo Spence documented as of this encounter Visit Diagnoses Not on filedocumented in this encounter Care Teams Pulp Mill Operator Relationship Specialty Start Date End Date Hernan Urbina MD [address] [place] [address] PCP - General Internal Medicine 01/21/25 documented as of this encounter
--- OUTSIDE RECORDS SUMMARY | 2025-03-17 14:03 | XMS_ITS | Clinical Summary ---
Author Organization [employer] Address [address] [facility] [address] 7t [place] [address] Care Team Providers Care Major Sales Associate Name Role Phone Hernan Urbina MD Primary [...] EST): Last pcp visit 1 year at [facility]: November due to vaginal bleeding, back pain [facility]: 6 years ago due to HI s/p stent x2 Pmhx: DM, HTN, Cholesterol, HI s/p stent x2, CHF, atrial fibrillation Pshx: [...] Data 03/04/2025 2:00 PM EDT Office Visit [facility] ADULT DENTAL [address] [place] [address] Neha Felder, GLORIA 03/02/2025 Refill [facility] MED & PEDS [address] [place] [address] Hernan Urbina MD Type 2 diabetes mellitus with diabetic peripheral angiopathy without gangrene, without long-term current use of insulin ([facility]) 02/25/2025 Travel 02/22/2025 2:45 PM EDT Office Visit [facility] MED & PEDS [address] [place] [address] Hernan Urbina MD Gross hematuria (Primary Dx); Primary hypertension 02/22/2025 Travel 02/10/2025 1:00 PM EDT Office Visit [facility] ADULT DENTAL [address] [place] [address] Neha Felder DMD 02/10/2025 Telephone [facility] MED & PEDS [address] [place] [address] Hernan Urbina MD ER Follow-up 02/07/2025 Travel 01/24/2025 Orders Only [facility] MED & PEDS [address] [place] [address] Hernan Urbina MD 01/21/2025 9:30 AM EDT Office Visit [facility] MED & PEDS [address] [place] [address] Hernan Urbina MD Primary hypertension (Primary Dx); Type 2 diabetes mellitus with diabetic peripheral angiopathy without gangrene, without long-term current use of insulin (CMS/HCC); Encounter for screening mammogram for malignant neoplasm of breast 01/20/2025 Travel 12/21/2024 9:00 AM EST Telemedicine [facility] MED & PEDS [address] [place] [address] Hernan Urbina MD Encounter to establish care [...] Upcoming Encounters Date Type Department Care Team ([facility] st Contact Info) Description 03/29/2025 2:15 PM EDT Telemedicine [facility] MED & PEDS [address] [place] [address] Hernan Urbina MD [address] [place] [address] 05/03/2025 2:00 PM EDT Office Visit [facility] ADULT DENTAL [address] [place] [address] Domingo Spence Health Maintenance Due Date Last [...] gangrene, without long-term current use of insulin ([facility]) TSH W/REFLEX TO FT4 Routine 01/21/2025 1 [...] 3 AM EDT 03/07/2025 12:09 PM EDT [facility] - 03/08/2025 4:08 PM EDT ----- ------- Name: Meena Hidalgo ?Age/Sex: 70/F ? : 1955 Unit#: [id number] ?? Attend Dr: Jean Busch MD ?Re03/07/25 ?Status: DEP [facility] ? Location: HO.SSS ?Disch: ? ----- ------- SPEC : [id number] ? RECD: 03/07/252 ? STATUS: ??SOUT ? REQ NUM: [id number] ? FAUSTO: 03/07/251 ? SUBM DR: Jean Busch MD ? [...] Copies To: ?? Jean Busch MD ?? [facility] ?? [address] [facility] [address] ?? [place] [address] ?? [phone] ? CONTINUED ON NEXT PAGE ----- ------- Name: Meena Hidalgo ?Age/Sex: 70/F ? : 1955 Unit#: [id number] ?? Attend Dr: Jean Busch MD ?Re03/07/25 ?Status: DEP [facility] ? Location: HO.SSS ?Disch: ? ----- ------- SPEC : [id number] ? RECD: 03/07/25-120 ? STATUS: ??SOUT ? REQ NUM: [id number] ? FAUSTO: 03/07/25-1133 ? SUBM DR: Jean Busch MD ? ENTERED: ??03/07/25-1215 ?SP TYPE: Surgical ? OTHR DR: Hernan Urbina MD ORDERED: ??Gross Micro L5 ? Copies To: ??(Continued) ?? Hernan Urbina MD ?? [facility] ?? [address] ?? [place] [address] ?? [phone] ----- ------- Signed (signature on file) Bianca Cooper MD 03/08/25 1962 ? ----- ------- ? END OF REPORT ? us Generic External Data Provider LAB BLOOD ORDERAB LES Final Result [facility] [address] [place] [address] [phone] * (ABNORMAL) Glucose, Whole Blood (03/07/2025 9:37 AM EDT) Glucose, Whole Blood 226(H) 60 - 115 mg/dL [facility] Comment:METER #: [id number] 03/07/2025 9:37 AM EDT 03/07/2025 9:43 AM EDT us Generic External Data Provider LAB BLOOD ORDERAB LES Final Result Performing Organization Address [facility]/ZIP Co de Phone Number [facility] [address] [place] [phone] * (ABNORMAL) Albumin, Random Urine W/Creatinine (01/21/2025 10:40 AM EDT) Pathologist [facility] Creatinine, Urine 72.43 mg/dL [facility] Microalbumin Urine 27.0 mg/L [facility] Microalbum Creatinine Ratio Ur 37.2(H) <30 ug/mg cr [facility] Comment:Albumin/Creatinine R atio Reference Ranges: Normal: < 30 ug/mg creatinine Microalbuminuria: 30 - 300 ug/mg creatinineClinical Albuminuria: > 300 ug/mg creatinine Urine (Urine, Random) 01/21/2025 10:40 AM EDT 01/21/2025 2:08 PM EDT us Hernan Aaron MD LAB URINE ORDERABL ES Final Result Performing Organization Address [facility]/ZIP Co de Phone Number [facility] [address] [place] [phone] * TSH W/Reflex to FT4 (01/21/2025 10:39 AM EDT) TSH reflex Free T4 0.75 0.32 - 4.0 uIU/mL [facility] Blood Venous blood specimen / Unknown 01/21/2025 10:39 AM EDT 01/21/2025 2:05 PM EDT us Hernan Aaron MD LAB BLOOD ORDERABL ES Final Result Performing Organization Address City/[facility]/ZIP Co de Phone Number [facility] [address] [place] [address] [phone] * (ABNORMAL) Lipid Panel, Standard (01/21/2025 10:39 AM EDT) Triglycerides 159(H) <150 mg/dL [facility] Comment:Desirable Triglyceri de: less than 150 mg/dLBorderline High Triglyceride 150-199 mg/dLHigh Triglyceride: 200-499 mg/dLVery High Triglyceride: greater than or equal to 5OO mg/dL Cholesterol 332(H) <200 mg/dL [facility] Comment:Desirable Cholestero l: less than 200 mg/dLBorderline High Cholesterol: 200-239 mg/dLHigh Cholesterol: greater than 239 mg/dL LDL Cholesterol Calculated 247(H) <100 mg/dL [facility] Comment:Desirable LDL: less than 100 mg/dLNear Optimal/Above Optimal LDL: 110- 129 mg/dLBorderline High LDL: 130-159 mg/dLHigh LDL: 160-189 mg/dLVery High LDL: greater than or equal to 190 mg/dL HDL Cholesterol 54 >40 mg/dL [facility] Comment:Desirable HDL: great er than 40 mg/dL Note: This HDL assay may give artificially low results in patients with liver disease. Blood Venous blood specimen / Unknown 01/21/2025 10:39 AM EDT 01/21/2025 2:05 PM EDT us Hernan Aaron MD LAB BLOOD ORDERABL ES Final Result [facility] [address] [place] [address] [phone] * (ABNORMAL) Comprehensive Metabolic Panel (01/21/2025 10:39 AM EDT) Sodium 139 135 - 145 mmol/L [facility] Potassium 4.4 3.3 - 5.1 mmol/L [facility] Chloride 103 96 - 108 mmol/L [facility] Carbon Dioxide 28 22 - 29 mmol/L [facility] Anion Gap 12 12 - 20 [facility] Urea Nitrogen (BUN) 19(H) 9 - 16 mg/dL [facility] Creatinine, Serum 0.69 0.5 - 1.4 mg/dL [facility] Estimated Glomerular Filt Rate >60 [facility] Comment:Chronic Kidney Disea se: Estimated GFR < 60 mL/min/1.04n4Qprbed Kidney Disease: Estimated GFR < 15 mL/min/1.73m2 Glucose 209(H) 60 - 115 mg/dL [facility] Calcium 10.0 8.4 - 10.2 mg/dL [facility] Bilirubin, Total 0.8 0.0 - 1.0 mg/dL [facility] Aspartate Amino Transferase 21 5 - 31 U/L [facility] Alanine Aminotransferase 22 0 - 31 U/L [facility] Total Protein 8.2(H) 6.5 - 8.0 g/dL [facility] Albumin Level 4.5 3.5 - 5.0 g/dL [facility] Alkaline Phosphatase 83 39 - 117 U/L [facility] Blood Venous blood specimen / Unknown 01/21/2025 10:39 AM EDT 01/21/2025 2:05 PM EDT us Hernan Aaron MD LAB BLOOD ORDERABL ES Final Result [facility] [address] [place], [place] [phone] * (ABNORMAL) CBC auto differential (01/21/2025 10:34 AM EDT) Pathologist [facility] White Blood Count 4.8 4.8 - 10.8 X10*3/uL [facility] Red Blood Count 4.74 4.20 - 5.50 X10*6/uL [facility] Hemoglobin 14.5 12.0 - 16.0 g/dl [facility] Hematocrit 43.4 37.0 - 47.0 % [facility] Mean Corpuscular Volume 91.6 80.0 - 98.0 fL [facility] Mean Corpuscular Hemoglobin 30.6 27.0 - 33.0 pg [facility] Mean Corpuscular HGB Conc 33.4 31.0 - 35.0 g/dl [facility] Red Cell Distribution Width 11.4 11.0 - 16.0 % [facility] Platelet Count 234 160 - 400 X10*3/uL [facility] Mean Platelet Volume 11.5 9.4 - 12.3 fL [facility] Neutrophils Percent Auto 66.6 45 - 73 % [facility] Imm Gran Pct Auto 0.2 0.0 - 0.4 % [facility] Lymphocytes Percent Auto 22.5 20 - 40 % [facility] Monocytes Percent Auto 8.8 2 - 11 % [facility] Eosinophils Percent Auto 1.7 0 - 4 % [facility] Basophils Percent Auto 0.2 0 - 2 % [facility] NRBC Pct Auto 0.0 0.0 - 0.2 /100WBC [facility] Neutrophils Absolute Auto 3.2 2.0 - 8.3 x10*3/uL [facility] Imm Gran Abs Auto 0.01 0.00 - 0.03 X10*3/uL [facility] Lymphocytes Absolute Auto 1.1(L) 1.2 - 4.9 X10*3/uL [facility] Monocytes Absolute Auto 0.4 0.1 - 1.2 X10*3/uL [facility] Eosinophils Absolute Auto 0.1 0.0 - 0.4 X10*3/uL [facility] Basophils Absolute Auto 0.0 0.0 - 0.2 X10*3/uL [facility] NRBC Abs Auto 0.000 0.0 - 0.012 X10*3/uL [facility] Blood Venous blood specimen / Unknown 01/21/2025 10:34 AM EDT 01/21/2025 2:05 PM EDT Hernan Aaron MD LAB BLOOD ORDERABL ES Final Result Performing Organization Address [facility]/ZIP Co de Phone Number [facility] [address] [place] [phone] * Hepatitis C Antibody with Reflex to HCV, RNA, Quantitative, Real-Time PCR (01/21/2025 10:34 AM EDT) Hepatitis C Antibody Nonreactive Nonreactive [facility] Comment:Antibodies to HCV no t detected; does not exclude early acuteHCV infection. Blood Venous blood specimen / Unknown 01/21/2025 10:34 AM EDT 01/21/2025 2:05 PM EDT Hernan Aaron MD LAB BLOOD ORDERABL ES Final Result Performing Organization Address [facility] Co de Phone Number [facility] [address] [place] [address] [phone] * HIV-1/2 Antigen and Antibodies, Fourth Generation, with Reflexes (01/21/2025 10:34 AM EDT) HIV AB/AG Nonreactive Nonreactive [facility] Comment:HIV-1 p24 Ag and/or HIV-1/HIV-2 Ab not detected.A test result that is nonreactive does not exclude thepossibility of exposure to or infection with HIV-1 and/orHIV-2. Nonreactive results in this assay for individualswith prior exposure to HIV-1 and/or HIV-2 may be due toantigen and antibody levels that are below the limit ofdetection of this assay.The [employer] HIV Ag/Ab Combo assay result andsupplemental assay results should be interpreted inconjunction with the patient's clinical presentation,history and other laboratory results. If the results areinconsistent with clinical evidence, additional testing issuggested to confirm the result. Blood Venous blood specimen / Unknown 01/21/2025 10:34 AM EDT 01/21/2025 2:05 PM EDT Hernan Aaron MD LAB BLOOD ORDERABL ES Final Result [facility] [address] [place] [phone] * (ABNORMAL) POCT HGB A1C (01/21/2025 [...] Most Recently Relevant to Health Maintenance Insurance [facility] [employer] OPTIONS (O D-SNP) [facility] [employer] OPTIONS (O D-SNP) [facility] [place] [id number] [place] [id number] [place] [id number] Care Teams Major Sales Associate Relationship Specialty Start Date End Date Hernan Urbina MD [address] [place] [address] [place] [address] PCP - General Internal Medicine 01/21/25
--- OUTSIDE RECORDS SUMMARY | 2025-03-17 14:03 | XMS_ITS | Encounter Summary ---
Author Organization [employer] [facility] Address 75 [facility] 7 [place] [address] Care Team Providers Care Mobility Developer Name Role Phone Hernan Urbina MD Primary [...] Info) Description 03/29/2025 2:15 PM EDT Telemedicine [facility] MED & PEDS [address] [place] [address] Hernan Urbina MD [address] [place] [address] 05/03/2025 2:00 PM EDT Office Visit [facility] ADULT DENTAL [address] [place] [address] Domingo Spence documented as of this encounter Visit Diagnoses Not on filedocumented in this encounter Care Teams Mobility Developer Relationship Specialty Start Date End Date Hernan Urbina MD [address] [place] [address] PCP - General Internal Medicine 01/21/25 documented as of this encounter
== END 2025-03-17 12:28 | disposition home or self-care (01) ==
LOC: HO.LAB 12:27
PROVIDERS: PCP Internal Medicine; Visit Provider Urology
DX: R31.29 Other microscopic hematuria (principal); C67.9 Malignant neoplasm of bladder, unspecified
CPT/HCPCS: 51798; 81003; 88121; 99212

== ENCOUNTER 2025-03-17 12:27 | Outpatient (AMB) | payer OTHER, SELFPAY ==
--- NOTE | 2025-03-17 13:10 | MHC.OFFVIS ---
Intake Visit Reasons: TURBT follow up Intake Note: Pt presents to the office today for a TURBT follow up. PVR:60ml Allergies atorvastatin [From LIPITOR] Adverse Reaction (Intermediate, Verified 03/17/25 13:11) STOMACH ACHE oxycodone [From OXYCONTIN] Adverse Reaction (Intermediate, Verified 03/17/25 13:11) SENSORY HALLUCINATIONS sulfamethoxazole [From Bactrim] Adverse Reaction (Intermediate, Verified 03/17/25 13:11) chills vitamin d Adverse Reaction (Intermediate, Uncoded 03/17/25 13:11) Hallucinations HPI Comments Details: Meena is a very pleasant patient. She is a patient of Dr. Rajput. 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 Denies nicotine dependence or workplace chemical exposure. 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 [facility] Medical History Bladder mass Metformin adverse reaction Urinary incontinence, mixed Oropharyngeal dysphagia COVID-19 vaccination refused Refused influenza vaccine Diabetes mellitus with hyperglycemia, without long-term current use of insulin Anxiety as acute reaction to gross stress Mild intermittent asthma in adult without complication OAB (overactive bladder) Diabetes mellitus with microalbuminuria, without long-term current use of insulin Osteoarthritis, knee History of depression Osteopenia after menopause Overweight Varicose veins of right lower extremity History of ST elevation myocardial infarction (STEMI) Coronary artery disease involving kaw coronary artery Hypertension Refused pneumococcal vaccination Dyslipidemia Surgical History History of section Hx of myomectomy S/P left rotator cuff repair History of heart artery stent Family History Father No problems noted. Mother No problems noted. 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 Current occupational exposures/hazards: No Cognitive needs: No Hearing needs: No Vision needs: Yes Female Reproductive History Menstrual Age of Menarche: 12 Review of Systems Const Denies chills and Denies fever(s) Card Reports no additional complaints and Denies syncope Resp Denies cough GI Denies abdominal pain and Denies heartburn Reports as per HPI and Denies change in libido Neuro Denies syncope Psych Denies change in libido Endo Denies change in libido Physical Exam Const General: cooperative, healthy appearing, comfortable and no acute distress Orientation/consciousness: patient oriented x3 HEENT Face and sinus: Yes normal facial exam Mouth: moist mucous membranes Neck Neck: Yes normal visual inspection, Yes full ROM and Yes trachea midline Chest Chest palpation & inspection: normal inspection of the chest Resp Effort & Inspection: normal respiratory effort, able to speak in complete sentences and no respiratory distress GI Inspection: Yes normal to inspection Back/Spine/Pelvis Cervical Spine: normal cervical lordosis Thoracic/Lumbar Spine: thoracic and lumbar spine normal to inspection Skin General skin exam: no rashes or lesions noted Neuro General: patient oriented x3, gait normal, tone normal and moves all extremities Extrem General: Yes normal to inspection and Yes capillary refill normal Office Procedures Post Void Residual Post Residual Void Post Void Residual (PVR): 60 82848-Irve Void Residual by ultrasound Results AMB Urinalysis, Automated UA Leukoctes 0 Lianne/uL Last Edit by Zoë Gabriel CMA on 03/17/25 13:19 UA Nitrite Negative Last Edit by Zoë Gabriel CMA on 03/17/25 13:19 UA Urobilinogen 0.2 mg/dL Last Edit by Zoë Gabriel CMA on 03/17/25 13:19 UA Protein 0 mg/dL Last Edit by Zoë Gabriel CMA on 03/17/25 13:19 UA pH 6.0 Last Edit by Zoë Gabriel CMA on 03/17/25 13:19 UA Blood 80 Cb/uL Last Edit by Zoë Gabriel CMA on 03/17/25 13:19 UA Specific Norton 1.010 Last Edit by Zoë Gabriel CMA on 03/17/25 13:19 UA Ketone Negative Last Edit by Zoë Gabriel CMA on 03/17/25 13:19 UA Bilirubin 0 mg/dL Last Edit by Zoë Gabriel CMA on 03/17/25 13:19 UA Glucose 1000 mg/dL Last Edit by Zoë Gabriel CMA on 03/17/25 13:19 Results Reviewed Results Reviewed: Laboratory Last Values Urine pH (Auto) 6.0 03/17/25 13:12 Specific Norton (Auto) 1.010 03/17/25 13:12 Urine Protein (Auto) 0 mg/dL 03/17/25 13:12 Glucose (UA)(Auto) 1000 mg/dL 03/17/25 13:12 Urine Ketones (Auto) Negative 03/17/25 13:12 Urine Blood (Auto) 80 Cb/uL 03/17/25 13:12 Urine Nitrite (Auto) Negative 03/17/25 13:12 Urine Bilirubin (Auto) 0 mg/dL 03/17/25 13:12 Urine Urobilinogen (Auto) 0.2 mg/dL 03/17/25 13:12 Leukocyte Esterase (Auto) 0 Lianne/uL 03/17/25 13:12 Assessment & Plan Assessment & Plan (1) Bladder cancer: Comment: Superficial high-grade Code(s): C67.9 - Malignant neoplasm of bladder, unspecified Category: Medical Plan Bladder immunotherapy Bladder immuno/chemotherapy was discussed today. These medications are used to create an immune reaction against bladder cancer. The intention is to destroy any tumor cells left on the bladder surface. Since BCG and gemcitabine involved immunostimulation they are not indicated in situations where there is immune weakness. Medications are placed directly into the bladder. It should be held for one to 2 hours. The toilet should be disinfected with a cap full of household bleach prior to urination. Side effects from BCG and gemcitabine generally include mucosa-related changes such as urinary urgency and/or frequency, and hematuria BCG may also invoke an infection type response. An elevated temperature may be indicative of more serious issues and should be reported to the Dr. The intention with bladder immunotherapy is to reduce the frequency of bladder cancer recurrence by 50%. Availability of BCG is highly variable. There is a single manufacture who has had difficulty with quality and reliability engineer since 2017. Multiple protocols are available - mitomycin-C for alkalinization - 40mg/200mg in 40cc NSal - A Randomized Clinical Trial of Intravesical Instillation of Mitomycin-C and Combination of Mitomycin-C and Cytarabine (Estella-C) in Non-Muscle Invasive Bladder Cancer - Thien Bob KRZYSZTOF Int. 2021;129(4):534-541. doi: 10.1111/bju.82510 - Combination Gemcitabine/Docetaxel - 1gm/40mg in 100cc NSal 60 min (Intravesical gemcitabine and docetaxel in the treatment of BCG-na?ve non?muscle invasive urothelial carcinoma of the bladder: Updates from a phase 2 trial. Crossref DOI link:?https://doi.org/10.1200/JCO.2023.41.6_suppl.507) Will undergo - mitomycin-C with cytarabine 6 week induction following stent removal Orders: Orders AMB Urinalysis Automated Today R31.29 - Other microscopic hematuria FISH Bladder Cancer Today C67.9 - Malignant neoplasm of bladder, unspecified AMB Post Void Residual by ultrasound Today N39.46 - Mixed incontinence Patient Instructions: This note is constructed using voice recognition software. While every effort has been made to ensure accuracy armhole presser errors may have been included. Imaging studies, laboratory and physical exam results were discussed and reviewed in detail. No major barriers to patient understanding were identified. An opportunity to ask questions regarding the treatment plan was provided. All questions were answered. The patient expressed understanding and agreement with the above treatment plan. The patient is aware they should contact our office by phone for worsening of their current condition or the appearance of new urologic symptoms. Compliance is encouraged with any medications and followup testing that is ordered. It is a privilege to participate in the urologic care of your patient. If you have any questions or concerns regarding treatment for the above conditions, or other urologic issues, please do not hesitate to contact me. The office telephone contact is [phone]. Sincerely, Dr Jean Busch MD, [facility] - Urology Compassionate Specialist Care for the Genitourinary System Coding Level of Care Code Est Pt Level 4 (99485) Complex EM visit Add On G2211 Diagnoses Bladder cancer C67.9 CPT Codes Post Residual Void - PVR CPT Code: 39211-Kvgj Void Residual by ultrasound ([id number])
--- OUTSIDE RECORDS SUMMARY | 2025-03-17 13:13 | XMS_ITS | Encounter Summary ---
Author Organization [facility] Address [address] [place] [address] Care Team Providers Care Furnace Roaster Name Role Phone Hernan Urbina MD Primary Care Prov ider Encounter Details Date Type Department Care Team (Latest Contact Info) Description 02/02/2021 Abstract [facility] CONVERSIONS Dental, Provider, DDS Social [...] Care Team (Late st Contact Info) Description 03/29/2025 2:15 PM EDT Telemedicine [facility] MED & PEDS [address] [place] [address] Hernan Urbina MD [address] [place] [address] 05/03/2025 2:00 PM EDT Office Visit [facility] ADULT DENTAL [address] [place] [address] Domingo Spence documented as of this encounter Visit Diagnoses Not on filedocumented in this encounter Care Teams Furnace Roaster Relationship Specialty Start Date End Date Hernan Urbina MD [address] [place] [address] PCP - General Internal Medicine 01/21/25 documented as of this encounter
--- OUTSIDE RECORDS SUMMARY | 2025-03-17 13:13 | XMS_ITS | Encounter Summary ---
Author Organization [employer] [facility] Address [address] [place] [address] Care Team Providers Care College Hire Name Role Phone Hernan Urbina MD Primary Care Prov ider Encounter Details Date Type Department Care Team (Late st Contact Info) Description 11/01/2022 Abstract [facility] ADULT DENTAL [address] [place] [address] Thompson Cobb, DDS [address] [place] [address] Social History Tobacco Use Types Packs/Day Years [...] Department Care Team (Late Contact Info) Description 03/29/2025 2:15 PM EDT Telemedicine [facility] MED [facility] PED[facility] [address] [place] [address] Hernan Urbina MD [address] [place] [address] 05/03/2025 2:00 PM EDT Office Visit [facility] ADULT DENTAL [address] [place], [place] [phone] Domingo Spence documented as of this encounter Visit Diagnoses Not on filedocumented in this encounter Care Teams College Hire Relationship Specialty Start Date End Date Hernan Urbina MD [address] [place] [id number] PCP - General Internal Medicine 01/21/25 documented as of this encounter
--- OUTSIDE RECORDS SUMMARY | 2025-03-17 13:13 | XMS_ITS | Clinical Summary ---
Author Organization [employer] Address [address] [facility] [address] [place] [address] Care Team Providers Care Wildlife Conservation Officer Name Role Phone Hernan Urbina MD Primary [...] prior to dental procedure 16 capsule 3 025 Active lisinopril 40 MG tablet Take 1 [...] EST): Last pcp visit 1 year at [facility] ER: November due to vaginal bleeding, back pain August Hospital: 6 years ago due to [place] s/p stent x2 Pmhx: DM, HTN, Cholesterol, [place] s/p stent x2, CHF, atrial fibrillation Pshx: [...] Encounters Date Type Department Care Team Description 03/07/2025 Orders Only GENERIC EXTERNAL DATA DEPARTMENT Provider, Generic External Data 03/04/2025 2:00 PM EDT Office Visit [facility] [address] [place] [address] Neha Felder, GLORIA 03/02/2025 Refill [facility] [address] [place] [address] Hernan Urbina MD Type 2 diabetes mellitus with diabetic peripheral angiopathy without gangrene, without long-term current use of insulin ([facility]) 02/25/2025 Travel 02/22/2025 2:45 PM EDT Office Visit [facility] [address] [place] [address] Hernan Urbina MD Gross hematuria (Primary Dx); Primary hypertension 02/22/2025 Travel 02/10/2025 1:00 PM EDT Office Visit [facility] [address] [place] [address] Neha Felder DMD 02/10/2025 Telephone [facility] [address] [place] [address] Hernan Urbina MD ER Follow-up 02/07/2025 Travel 01/24/2025 Orders Only [facility] [address] [place] [address] Hernan Urbina MD 01/21/2025 9:30 AM EDT Office Visit [facility] [address] [place] [address] Hernan Urbina MD Primary hypertension (Primary Dx); Type 2 diabetes mellitus with diabetic peripheral angiopathy without gangrene, without long-term current use of insulin (CMS/HCC); Encounter for screening mammogram for malignant neoplasm of breast 01/20/2025 Travel 12/21/2024 9:00 AM EST Telemedicine [facility] [address] [place] [address] Hernan Urbina MD Encounter to establish care (Primary Dx); Chronic diastolic heart failure (CMS/HCC); Paroxysmal atrial fibrillation (CMS/HCC); Type 2 diabetes mellitus with diabetic peripheral angiopathy without gangrene, without long-term current use of insulin (CMS/HCC) 12/21/2024 Travel from Last 3 Months Family History [...] Upcoming Encounters Date Type Department Care Team ([facility] st Contact Info) Description 03/29/2025 2:15 PM EDT Telemedicine [facility] [address] [place] [address] Hernan Urbina MD [address] [place] [address] 05/03/2025 2:00 PM EDT Office Visit [facility] [address] [place] [address] Domingo Spence Health Maintenance Due Date Last [...] 12/21/2024, 12/21/19 25 SDOH Screening 12/21/2025 12/21/2024 Diabetes: Foot Exam 01/21/2026 01/21/2025, 01/21/2025, 01/21/2025, Additional history exists Diabetes: Urine Protein Screening 01/21/2026 01/21/2025 Lipid Panel 01/21/2026 01/21/2025 Tobacco Screening 03/04/2026 03/04/2025 Dental X-Ray: Full Mouth 04/26/2026 04/25/2023 DTaP/Tdap/Td [...] patient's age to complete this topic Meningococcal B Vaccine Aged Out No l onger eligible based on patient's age to complete [...] Procedure Name Priority Date/Time Associated Diagnosis Comments GROSS AND MICROSCOPIC LEVEL 5 Routine 03/07/2025 11:33 AM EDT GLUCOSE, WHOLE BLOOD Routine 03/07/2025 9:37 AM EDT CASE PRESENTATION, DETAILED AND EXTENSIVE TREATMENT PLANNING Routine 03/04/2025 2:00 PM EDT 14 MO AMALGAM - 2 SURF, PRIMARY OR PERMANENT Routine 03/04/2025 2:00 PM EDT CASE PRESENTATION, DETAILED AND EXTENSIVE TREATMENT PLANNING Routine 02/10/2025 1:00 PM EDT 9 CROWN - PORCELAIN/CERAMIC Routine 02/10/2025 1:00 PM EDT 8 CROWN - PORCELAIN/CERAMIC Routine 02/10/2025 1:00 PM EDT ALBUMIN, RANDOM URINE W/CREATININE Routine 01/21/2025 10:40 AM EDT Type 2 diabetes mellitus with diabetic peripheral angiopathy without gangrene, without long-term current use of insulin ([facility]) TSH W/REFLEX TO FT4 Routine 01/21/2025 1 [...] Recently Relevant to Health Maintenance Results * Gross and Microscopic Level 5 (03/07/2025 11:33 AM EDT) 03/07/2025 11:3 3 AM EDT 03/07/2025 12:09 PM EDT [facility] - 03/08/2025 4:08 PM EDT ----- ------- Name: Meena Hidalgo ?Age/Sex: 70/F ? : 1955 Unit#: [id number] ?? Attend Dr: Jean Busch MD ?Re03/07/25 ?Status: [facility]P [facility] ? Location: HO.SSS ?Disch: ? ----- ------- SPEC : [id number] ? RECD: 03/07/253 ? STATUS: ??SOUT ? REQ NUM: [id number] ? FAUSTO: 03/07/254 ? SUBM DR: Jean Busch MD ? ENTERED: ??03/07/25 ?SP TYPE: Surgical ? OTHR DR: Hernan Urbina MD ORDERED: ??Gross Micro L5 ? Diagnosis ?? Bladder tumor, transurethral resection: ?- Papillary urothelial carcinoma, high grade, non-invasive. ?- Muscularis propria not identified. ?Bladder, transurethral resection/biopsy ? Procedure: ?Transurethral resection ?? Tumor site: ?Left ureteric orifice ?? Histologic type: ?? Papillary urothelial carcinoma ?? Histologic grade: ?? High-grade ?? Muscularis propria: ?? Not identified ?? Extent of invasion: ?? Non-invasive ?? Lymphovascular invasion: ?? Not identified ?Clinical History Bladder tumor ?Microscopic Description Microscopic sections reviewed. ? Material Received ?? Bladder tumor ? Gross Description Received in formalin labeled ?bladder tumor? are 5 velvety, micropapillary, martinez-pink and red-maroon congested and hemorrhagic fragments and chips of tissue versus tumor ranging from 0.25-0.8 cm, submitted in toto in a cassette labeled Liss DELACRUZ This case was reviewed intradepartmentally. Copies To: ?? Jean Busch MD ?? [facility] ?? [address] ?? [place] [address] ?? [phone] ? CONTINUED ON NEXT PAGE ----- ------- Name: Meena Hidalgo ?Age/Sex: 70/F ? : 1955 Unit#: [id number] ?? Attend Dr: Jean Busch MD ?Re03/07/25 ?Status: DEP [facility] ? Location: HO.SSS ?Disch: ? ----- ------- SPEC : [id number] ? RECD: 03/07/25-120 ? STATUS: ??SOUT ? REQ NUM: [id number] ? FAUSTO: 03/07/25-1133 ? SUBM DR: Jean Busch MD ? ENTERED: ??03/07/25-1215 ?SP TYPE: Surgical ? OTHR DR: Hernan Urbina MD ORDERED: ??Gross Micro L5 ? Copies To: ??(Continued) ?? Hernan Urbina MD ?? [facility] ?? [address] ?? [place] [address] ?? [phone] ----- ------- Signed (signature on file) Bianca Cooper MD 03/08/25 6379 ? ----- ------- ? END OF REPORT ? us Generic External Data Provider LAB BLOOD ORDERAB LES Final Result [facility] [address] [place] [address] [phone] * (ABNORMAL) Glucose, Whole Blood (03/07/2025 9:37 AM EDT) Glucose, Whole Blood 226(H) 60 - 115 mg/dL [facility] Comment:METER #: [id number] 03/07/2025 9:37 AM EDT 03/07/2025 9:43 AM EDT us Generic External Data Provider LAB BLOOD ORDERAB LES Final Result Performing Organization Address [facility]/ZIP Co de Phone Number [facility] [address] [place] [phone] * (ABNORMAL) Albumin, Random Urine W/Creatinine (01/21/2025 10:40 AM EDT) Pathologist [facility] Creatinine, Urine 72.43 mg/dL [facility] Microalbumin Urine 27.0 mg/L [facility] Microalbum Creatinine Ratio Ur 37.2(H) <30 ug/mg cr [facility] Comment:Albumin/Creatinine R atio Reference Ranges: Normal: < 30 ug/mg creatinine Microalbuminuria: 30 - 300 ug/mg creatinineClinical Albuminuria: > 300 ug/mg creatinine Urine (Urine, Random) 01/21/2025 10:40 AM EDT 01/21/2025 2:08 PM EDT us Hernan Aaron MD LAB URINE ORDERABL ES Final Result Performing Organization Address [facility]/ZIP Co de Phone Number [facility] [address] [place] [phone] * TSH W/Reflex to FT4 (01/21/2025 10:39 AM EDT) TSH reflex Free T4 0.75 0.32 - 4.0 uIU/mL [facility] Blood Venous blood specimen / Unknown 01/21/2025 10:39 AM EDT 01/21/2025 2:05 PM EDT us Hernan Aaron MD LAB BLOOD ORDERABL ES Final Result Performing Organization Address City/[facility]/ZIP Co de Phone Number [facility] [address] [place] [address] [phone] * (ABNORMAL) Lipid Panel, Standard (01/21/2025 10:39 AM EDT) Triglycerides 159(H) <150 mg/dL [facility] Comment:Desirable Triglyceri de: less than 150 mg/dLBorderline High Triglyceride 150-199 mg/dLHigh Triglyceride: 200-499 mg/dLVery High Triglyceride: greater than or equal to 5OO mg/dL Cholesterol 332(H) <200 mg/dL [facility] Comment:Desirable Cholestero l: less than 200 mg/dLBorderline High Cholesterol: 200-239 mg/dLHigh Cholesterol: greater than 239 mg/dL LDL Cholesterol Calculated 247(H) <100 mg/dL [facility] Comment:Desirable LDL: less than 100 mg/dLNear Optimal/Above Optimal LDL: 110- 129 mg/dLBorderline High LDL: 130-159 mg/dLHigh LDL: 160-189 mg/dLVery High LDL: greater than or equal to 190 mg/dL HDL Cholesterol 54 >40 mg/dL [facility] Comment:Desirable HDL: great er than 40 mg/dL Note: This HDL assay may give artificially low results in patients with liver disease. Blood Venous blood specimen / Unknown 01/21/2025 10:39 AM EDT 01/21/2025 2:05 PM EDT us Hernan Aaron MD LAB BLOOD ORDERABL ES Final Result [facility] [address] [place] [address] [phone] * (ABNORMAL) Comprehensive Metabolic Panel (01/21/2025 10:39 AM EDT) Sodium 139 135 - 145 mmol/L [facility] Potassium 4.4 3.3 - 5.1 mmol/L [facility] Chloride 103 96 - 108 mmol/L [facility] Carbon Dioxide 28 22 - 29 mmol/L [facility] Anion Gap 12 12 - 20 [facility] Urea Nitrogen (BUN) 19(H) 9 - 16 mg/dL [facility] Creatinine, Serum 0.69 0.5 - 1.4 mg/dL [facility] Estimated Glomerular Filt Rate >60 [facility] Comment:Chronic Kidney Disea se: Estimated GFR < 60 mL/min/1.53b6Xgjcem Kidney Disease: Estimated GFR < 15 mL/min/1.73m2 Glucose 209(H) 60 - 115 mg/dL [facility] Calcium 10.0 8.4 - 10.2 mg/dL [facility] Bilirubin, Total 0.8 0.0 - 1.0 mg/dL [facility] Aspartate Amino Transferase 21 5 - 31 U/L [facility] Alanine Aminotransferase 22 0 - 31 U/L [facility] Total Protein 8.2(H) 6.5 - 8.0 g/dL [facility] Albumin Level 4.5 3.5 - 5.0 g/dL [facility] Alkaline Phosphatase 83 39 - 117 U/L [facility] Blood Venous blood specimen / Unknown 01/21/2025 10:39 AM EDT 01/21/2025 2:05 PM EDT us Hernan Aaron MD LAB BLOOD ORDERABL ES Final Result [facility] [address] [place], [place] [phone] * (ABNORMAL) CBC auto differential (01/21/2025 10:34 AM EDT) Pathologist [facility] White Blood Count 4.8 4.8 - 10.8 X10*3/uL [facility] Red Blood Count 4.74 4.20 - 5.50 X10*6/uL [facility] Hemoglobin 14.5 12.0 - 16.0 g/dl [facility] Hematocrit 43.4 37.0 - 47.0 % [facility] Mean Corpuscular Volume 91.6 80.0 - 98.0 fL [facility] Mean Corpuscular Hemoglobin 30.6 27.0 - 33.0 pg [facility] Mean Corpuscular HGB Conc 33.4 31.0 - 35.0 g/dl [facility] Red Cell Distribution Width 11.4 11.0 - 16.0 % [facility] Platelet Count 234 160 - 400 X10*3/uL [facility] Mean Platelet Volume 11.5 9.4 - 12.3 fL [facility] Neutrophils Percent Auto 66.6 45 - 73 % [facility] Imm Gran Pct Auto 0.2 0.0 - 0.4 % [facility] Lymphocytes Percent Auto 22.5 20 - 40 % [facility] Monocytes Percent Auto 8.8 2 - 11 % [facility] Eosinophils Percent Auto 1.7 0 - 4 % [facility] Basophils Percent Auto 0.2 0 - 2 % [facility] NRBC Pct Auto 0.0 0.0 - 0.2 /100WBC [facility] Neutrophils Absolute Auto 3.2 2.0 - 8.3 x10*3/uL [facility] Imm Gran Abs Auto 0.01 0.00 - 0.03 X10*3/uL [facility] Lymphocytes Absolute Auto 1.1(L) 1.2 - 4.9 X10*3/uL [facility] Monocytes Absolute Auto 0.4 0.1 - 1.2 X10*3/uL [facility] Eosinophils Absolute Auto 0.1 0.0 - 0.4 X10*3/uL [facility] Basophils Absolute Auto 0.0 0.0 - 0.2 X10*3/uL [facility] NRBC Abs Auto 0.000 0.0 - 0.012 X10*3/uL [facility] Blood Venous blood specimen / Unknown 01/21/2025 10:34 AM EDT 01/21/2025 2:05 PM EDT Hernan Aaron MD LAB BLOOD ORDERABL ES Final Result Performing Organization Address [facility]/ZIP Co de Phone Number [facility] [address] [place] [address] [phone] * Hepatitis C Antibody with Reflex to HCV, RNA, Quantitative, Real-Time PCR (01/21/2025 10:34 AM EDT) Hepatitis C Antibody Nonreactive Nonreactive [facility] Comment:Antibodies to HCV no t detected; does not exclude early acuteHCV infection. Blood Venous blood specimen / Unknown 01/21/2025 10:34 AM EDT 01/21/2025 2:05 PM EDT Hernan Aaron MD LAB BLOOD ORDERABL ES Final Result Performing Organization Address [facility] Co de Phone Number [facility] [address] [place] [address] [phone] * HIV-1/2 Antigen and Antibodies, Fourth Generation, with Reflexes (01/21/2025 10:34 AM EDT) HIV AB/AG Nonreactive Nonreactive [facility] Comment:HIV-1 p24 Ag and/or HIV-1/HIV-2 Ab not detected.A test result that is nonreactive does not exclude thepossibility of exposure to or infection with HIV-1 and/orHIV-2. Nonreactive results in this assay for individualswith prior exposure to HIV-1 and/or HIV-2 may be due toantigen and antibody levels that are below the limit ofdetection of this assay.The [facility] HIV Ag/Ab Combo assay result andsupplemental assay results should be interpreted inconjunction with the patient's clinical presentation,history and other laboratory results. If the results areinconsistent with clinical evidence, additional testing issuggested to confirm the result. Blood Venous blood specimen / Unknown 01/21/2025 10:34 AM EDT 01/21/2025 2:05 PM EDT Hernan Aaron MD LAB BLOOD ORDERABL ES Final Result [facility] [address] [place] [phone] * (ABNORMAL) POCT HGB A1C (01/21/2025 [...] UNI DIGITAL DX MAMMO 1 Procedure Note ProviderStuart MD - 01/25/2023 Refer to the Notes tab for result details Legacy Procedure: 3D UNI DIGITAL DX MAMMO 1 Christopher Spence MD IMG BI PROCEDURES Final Res ult from Last 3 Months or Most Recently Relevant to Health Maintenance Insurance [facility] INTERMEDIATE OPTIONS (O D-SNP) [facility] INTERMEDIATE OPTIONS (O D-SNP) [facility] [place] [id number] [place] [phone] [place] [id number] Care Teams Wildlife Conservation Officer Relationship Specialty Start Date End Date Hernan Urbina MD [address] [place] [address] [place] [address] PCP - General Internal Medicine 01/21/25
--- OUTSIDE RECORDS SUMMARY | 2025-03-17 13:13 | XMS_ITS | Encounter Summary ---
Author Organization [employer] Address [address] [place] [address] Care Team Providers Care Waterproof Bag Sewer Name Role Phone Hernan Urbina MD Primary Care Prov ider Encounter Details Date Type Department Care Team (Late st Contact Info) Description 11/15/[address] [facility] [address] [place] [address] Neha Felder DMD Social History Tobacco Use [...] Info) Description 03/29/2025 2:15 PM EDT Telemedicine [facility] [address] [place], [place] [phone] Hernan Urbina MD [address] [place] [address] 05/03/2025 2:00 PM EDT Office Visit [facility] [address] [place] [address] Domingo Spence documented as of this encounter Visit Diagnoses Not on filedocumented in this encounter Care Teams Waterproof Bag Sewer Relationship Specialty Start Date End Date Hernan Urbina MD [address] [place] [address] PCP - General Internal Medicine 01/21/25 documented as of this encounter
--- OUTSIDE RECORDS SUMMARY | 2025-03-17 13:13 | XMS_ITS | Encounter Summary ---
Author Organization [employer] Address [address] [place] [address] Care Team Providers Care Business Area Director Name Role Phone Hernan Urbina MD Primary Care Prov ider Encounter Details Date Type Department Care Team (Late st Contact Info) Description 01/24/2025 Orders Only [facility] [address] [place], [place] [phone] Hernan Urbina MD [address] [place] [address] Social History Tobacco Use Types Packs/Day Years [...] Info) Description 03/29/2025 2:15 PM EDT Telemedicine [facility] [address] [place] [address] Hernan Urbina MD [address] [place] [address] 05/03/2025 2:00 PM EDT Office Visit [facility] [address] [place] [address] Domingo Spence documented as of this encounter Visit Diagnoses Not on filedocumented in this encounter Additional Health Concerns Assessment Noted Time PHQ-9 Depression Total Score: 2 12/21/19 8:57 AM EST documented as of this encounter Care Teams Business Area Director Relationship Specialty Start Date End Date Hernan Urbina MD [address] [place] [address] PCP - General Internal Medicine 01/21/25 documented as of this encounter
--- OUTSIDE RECORDS SUMMARY | 2025-03-17 13:13 | XMS_ITS | Encounter Summary ---
Author Organization [employer] [facility] Address [address] [facility] 7 [place] [address] Care Team Providers Care Truant Officer Name Role Phone Hernan Urbina MD Primary Care Prov ider Encounter Details Date Type Department Care Team (Latest Contact Info) Description 04/14/2019 Abstract [facility] CONVERSIONS Dental, Provider, DDS Social [...] Info) Description 03/29/2025 2:15 PM EDT Telemedicine [facility] [address] [place] [address] Hernan Urbina MD [address] [place] [address] 05/03/2025 2:00 PM EDT Office Visit [facility] ADULT DENT[facility] [address] [place] [address] Domingo Spence documented as of this encounter Visit Diagnoses Not on filedocumented in this encounter Care Teams Truant Officer Relationship Specialty Start Date End Date Hernan Urbina MD [address] [place] [address] PCP - General Internal Medicine 01/21/25 documented as of this encounter
--- OUTSIDE RECORDS SUMMARY | 2025-03-17 13:13 | XMS_ITS ---
Author Organization [facility] Address [address] [facility] [place] [address] Care Team Providers Care Assembler Rubber Footwear Name Role Phone Hernan Wasserman Primary Care Provider Unavailable Kathrine Cheema Unavailable [phone] Allergies Allergen (clinical drug ingredient) Drug/Non Drug [...] other tobacco user? No Vital Signs Height 8um53zc in 01/25/2025 Weight 137 lbs 01/25/2025 BMI 27.67 kg/m2 01/25/2025 Blood pressure systolic 130 mm Hg 01/26/20 Blood pressure diastolic 77 mm Hg 025 Encounters Encounter Location Date Provider Diagnosis [facility] [address] [address] 01/25/2025 Kathrine Anette Type 2 diabetes mellitus with polyneuropathy E11.42 Assessments Encounter Date Diagnosis (ICD Code) Assessment Notes Treatment Notes Treatment Clinical Notes Section Notes 01/25/2025 Type 2 diabetes mellitus with polyneuropathy (ICD-10 - E11.42) 01/25/2025 Other Plan Of Treatment Next Appt Details Follow Up: 2 Months, Reason: Provider Name:Kathrine Armando Jorge Luis armando, 04/05/2025 02:45:00 PM, [address] [place] [address], [phone], Procedure Notes * Category Sub-Category Detail Notes [...] instrumentation by the physician of record - [id number] Progress Notes * Hue TOLLIVER:[birth year] (69 yo F)Acc No.[id number]:01/25/2025 Progress Note Patient:?Meena TOLLIVER Provider:?Kathrine Cheema DPM :1955???Age:69 Y???Sex:Female D ate:01/25/2025 Address:[address] [place] [address], [address] [facility] Pcp:Hernan wu Subjective: * Chief Complaints: * [...] - Side Effectsyes[Allergies Verified] Objective: * Vitals:?Ht: 3ff99ym, Wt:137, BMI:27.67, Shoe size: 5, BP:130/77mm Hg, [...] instrumentation by the physician of record - 00115.? * Procedure Codes:?37230 TRIM SKIN LESIONS, OVER 4, Modifiers: XS [...] Cheema DPM Date:? Generated for Osmar brito/Raheel/Bridgett on:?03/17/2025 01:13 PM EDT History and Physical Notes * HPI (History of Present Illness) Category Sub-Category Detail Notes Category Not es At Risk footcare Pt States Last PCP Visit: Date: Examination Category Sub-Category Detail Notes Category Not [...]
--- OUTSIDE RECORDS SUMMARY | 2025-03-17 13:13 | XMS_ITS | Encounter Summary ---
Author Organization [employer] [facility] Address [address] [facility] 7 [place] [address] Care Team Providers Care Wheel And Axle Inspector Name Role Phone Hernan Urbina MD Primary Care Prov ider Encounter Details Date Type Department Care Team (Latest Contact Info) Description 04/15/2022 Abstract [facility] Dental, Provider, DDS Social History Tobacco [...] Info) Description 03/29/2025 2:15 PM EDT Telemedicine [facility] MED [facility] PED[facility] [address] [place] [address] Hernan Urbina MD [address] [place] [address] 05/03/2025 2:00 PM EDT Office Visit [facility] ADULT DENTAL [address] [place] [address] Domingo Spence documented as of this encounter Visit Diagnoses Not on filedocumented in this encounter Care Teams Wheel And Axle Inspector Relationship Specialty Start Date End Date Hernan Urbina MD [address] [place] [address] PCP - General Internal Medicine 01/21/25 documented as of this encounter
--- OUTSIDE RECORDS SUMMARY | 2025-03-17 13:14 | XMS_ITS | Data Portability ---
Author Organization [employer] [facility] [place] in - Formerly [facility] Address [address] [place] [address] Care Team Providers Care Telephone Collector Name Role Phone HIM CCA OTHER Assessment Encounter Date Assessment Date Assessment LastModified by Organization Details LastModified Time 03/08/2024 03/08/2024 I provided real -time medical direction via phone for this encounter, and was available for additional phone based assistance as needed. I have reviewed and agree with the Assessment and Plan as documented by the Litigation Examiner. We discussed the diagnostic uncertainty of home [...] Go To The Location Of Their Choice, [address] 4 11:16:43 urinalysis , dipstick 2023 024 [email or web address] 0 [facility], [address] [place] [address], [phone] 4 15:54:29 glucose, fingerstic k, blood 2023 024 [email or web address] 0 [facility], [address] [place] [address], [phone] 15:55:15 BMP, serum or plasma 2023 024 [email or web address] 0 [facility] - [address], [address] 17:20:49 Referral None recorded. Procedures None recorded. Surgeries None recorded. Imaging None recorded. Medication Orders Pyridium 100 mg tablet 2023 024 [id number], [address], [place], [id number], 16:23:58 Patient TargetsNo targets recorded. Patient InstructionsNo instructions recorded. Reason for Referral None Reported. Results Created Date Observation Date Name Description Value Unit Range Abnormal Flag Note LastModifiedBy Organization Detail LastModifiedTime 03/08/20 24 03/08/2024 BMP, serum or plasm a GLU 293 Not Available Main - Ins [address], [address] [place] [address] 03/08/2024 16:23:59 03/08/20 24 03/08/2024 gluco se, finge rstic k, blood Blood Glucose: mg/dl 313 Not Available [facility] - [address], [address] [place] [address] 03/08/2024 15:54:50 03/08/20 24 03/08/2024 urina lysis , dipst ick Leukocytes neg Not Available [facility] - [address], [address] 03/08/2024 15:52:25 03/08/20 24 03/08/2024 urina lysis , dipst ick Nitrite negati ve Not Available [facility] - [address], [address] 03/08/2024 15:52:25 03/08/20 24 03/08/2024 urina lysis , dipst ick pH 5 Not Available [facility] - [facility] [address], [address] 03/08/2024 15:52:25 03/08/20 24 03/08/2024 urina lysis , dipst ick Blood neg Not Available [facility] - [facility] [address], [address] 03/08/2024 15:52:25 03/08/20 24 03/08/2024 urina lysis , dipst ick Specific Ingraham 1.005 Not Available Main - [address], [address] 03/08/2024 15:52:25 03/08/20 24 03/08/2024 urina lysis , dipst ick Ketone neg Not Available [facility] - [facility] [address], [address] 03/08/2024 15:52:25 03/08/20 24 03/08/2024 urina lysis , dipst ick Glucose 3+ Not Available [facility] - [facility] [address], [address] 03/08/2024 15:52:25 03/08/20 24 03/08/2024 urina lysis , dipst ick Appearance clear Not Available [facility] - [address], [address] 03/08/2024 15:52:25 03/08/20 24 03/08/2024 urina lysis , dipst ick Color yellow Not Available [facility] - [facility] [address], [address] 03/08/2024 15:52:25 Result Notes None recorded. Medical Equipment None Reported. Allergies Allergen ID Allergen Name Allergen Category Reaction Reaction Severity Criticality Documentation Date Start Date Code Code System Note Provider Name and Address Organization Details Recorded Time 5042 Oxycontin medicatio n Not available Not available Not available 03/08/2024 73271 6 RxNorm Not Available [employer] [facility] 13:38:50 5043 shrimp allergeni c extract food Not available Not available Not available 03/08/2024 40619 2 RxNorm Mercy Castillo MD [address] [place] [address],[address], [place], [address], [employer] [facility] 15:52:46 9967 metformin medicatio n Not available Not available Not available 09/02/2024 6809 RxNorm Not Available [employer] - production 13:38:50 Medications Name Sig Start [...] Address Organization Details Last Updated DateTime 4 10109.1 44 g 98.2 [degF] 96 % 96 % 18 /min 149.86 cm 72 /min 146 mm[Hg] 81 mm[Hg] Not Available [employer] [facility] [employer] 4 15:50:30 Date Recorded Oxygen saturation Oxygen saturation in Arterial blood by Pulse oximetry Body temperature Heart rate Respiratory rate Systolic blood pressure Diastolic blood pressure Provider Name and Address Organization Details Last Updated DateTime 4 98 % 98 % 98.3 [degF] 106 /min 20 /min 180 mm[Hg] 92 mm[Hg] Not Available [employer] 15:59:56 Social History None recorded. Functional Status None recorded. Mental Status None recorded. Family History Nothing Reported. Medical History No medical history recorded. Gynecological HistoryNo gynecological history recorded. Obstetrics History GPAL:G 0 P 0 0 0 0 Past Encounters Encounter ID Performer Location Encounter Start Date Encounter Closed Date Diagnosis/Indication Diagnosis SNOMED-CT Code Diagnosis ICD10 Code Diagnosis Note [id number] Mercy Castillo MD [facility] - [facility] [address] [place] [phone] 03/08/2024 15:50:25 03/09/2024 11:54:56 Urinary symptoms 932180377 R39.9 No evidence of UTI based on dip she has glycosuria which could be causing the urgency and frequency- bmp ordered- nl renal function/ stable H & H.Will send urine culture and will call if UC positive for infection. Pat request Rx to go to [address]- made aware of Good RX card to defray cost - also have otc version- advised will turn urine bright orangey red- can stain underwear/ advised wearing pad for 3 -4 days PC team: Had bagels and grapes today- needs dietary consult re lower glycemic index foods- medic attempted to explain [id number] LYUDMILA DAMIAN MD Main - [facility] [address] [place] [address] 09/02/2024 15:51:56 09/02/2024 21:41:56 Pain of right hip joint 6849466058 20652 M25.551 Evaluation in the field was performed by my tile setter supervisor colleague, as noted above, I provided real-time [...] and treatment. -An expect was called at [facility] Primary care, consider__ _ Dispositio n:We discussed the situation and I recommende d referral to the emergency department . An expect was called at [facility] Health Concerns Section Related Observation LastModified by Organization Detai ls LastModified Time None Recorded Concern Status LastModified by Organization Details LastModified Time None Recorded Advance Directives Directive None Recorded Payers Insurance Date Sequence Insurance Name Policy Number Policy Meza Covered Member ID Meza Member ID Guarantor Name 09/02/2024 1 [facility] - DOS ON OR AFTER 2023 - DUAL ELIGIBLE - PENITENTIARY OPTIONS AND ONE CARE (MEDICARE REPLACEMENT/ADV ANTAGE - HMO) Meena Hidalgo [id number] Meena Hidalgo Notes Date Note Type Note [...] UTI/Pyelonephritis , Abdominal Pain Allergies: Unknown Comments: Interior Decorator [employer] verified the member's name//address and phone number. [...] - S/S for 3 days. Wellness check. Litigation Examiner POC Test Results from [facility] Urine [...] .................. .................. .................. .................. .................. .................. ............... Litigation Examiner Note From [facility]: Sent to a [...] she has history of diabetes, CHF, and RI. Pt states she takes Farxiga, Januvia, and Glipizide. Pt also takes Eliquis. Pt reports allergy to Oxycontin, causing hallucinations. BP:146/81, P:72, RR:18, SpO2:96% RA, T:98.2, B; Head: unremarkable; Lung sounds: clear bilaterally; Abdomen: soft, non-tender, distention; Back: no CVA tenderness; Extremities: no peripheral edema; Skin: pink, warm, dry; Urine sample obtained: yellow, clear, concentrated; Urine dip results: uploaded to [employer]. [facility] consulted and orders POC bloodwork and urine culture to be sent to [facility]. Venous blood draw performed; Istat Chem8+ results: uploaded to [employer]. [facility] sends script to pt's pharmacy for pyridium. [...] .................. ............... Disposition: Fulfilled Mercy Castillo MD [address] [place] [address],[address], [place], [address], [employer] 03/08/2024 17:20:55 09/02/2024 text/html HPI: Mbr called [...] .................. .................. .................. .................. .................. .................. ............... Litigation Examiner Note From Arjun Hubbard: Dispatched to the [...] afebrile, mucous membranes pink and moist, -edema, [facility] consulted. 911 called on behalf of the Pt, [facility] transported Pt to [facility]. ALL times are approx. .................. .................. .................. .................. .................. .................. .................. ............... [facility] Consulted: Lyudmila Damian .................. .................. .................. .................. .................. .................. .................. ............... Disposition: Fulfilled LYUDMILA DAMIAN MD [address] [facility],[address], [place], [address], [employer] [facility] 09/02/2024 19:04:26 OBGyn Episode No OBEpisode recorded.
--- OUTSIDE RECORDS SUMMARY | 2025-03-17 13:14 | XMS_ITS | Patient Health Record ---
Author Organization [facility] Address [address] [facility] [place] [address] Care Team Providers Care Bed Setter Name Role Phone Hernan Wasserman Primary Care Provider Unavailable Kathrine Cheema Unavailable [phone] Allergies Allergen (clinical drug ingredient) Drug/Non Drug [...] Problem Acquired hammer toe of right foot (600039485438 9105) Other hammer toe(s) (acquired), right foot (M20.41) Active confirmed Problem Acquired hammer toe of left foot (151224581265 9103) Other hammer toe(s) (acquired), left foot (M20.42) Active confirmed Problem 311792221 Neuropathy (G62.9) Active confirmed Problem 93131279 Type 2 diabetes mellitus with polyneuropathy (E11.42) Active confirmed Problem 690109891 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) Active confirmed Vital Signs Blood pressure diastolic 77 mm Hg 01/25/2025 Height 3lc95qp in 01/25/2025 Blood pressure systolic 130 mm Hg 01/25/2025 Weight 137 lbs 01/25/2025 BMI 27.67 kg/m2 01/25/2025 Encounters Encounter Location Date [facility] [address] 03/19/2024 Kathrine Cheema Type 2 diabetes mellitus with polyneuropathy E11.[address] [address] 06/15/2024 Kathrine Cheema Type 2 diabetes mellitus with polyneuropathy E11.42 [facility] [place] [address] [place] [address] 11/16/2024 Kathrine Cheema Type 2 diabetes mellitus with polyneuropathy E11.42 ; Other hammer toe(s) (acquired), right foot M20.41 and Other hammer toe(s) (acquired), left foot M20.[address] [address] 01/25/2025 Kathrine Cheema Type 2 diabetes mellitus with polyneuropathy E11.[address] [address] 06/15/2024 Kathrine Cheema [address] [address] 09/07/2024 Kathrine Cheema [address] [address] 09/07/2024 Kathrine Cheema Assessments Encounter Date Diagnosis [...] Details Provider Name:Kathrine armando, 04/05/2025 02:45:00 PM, [address] [place] [address], [phone], Insurance Providers Payer Name Payer Address Payer Phone Subscriber Number Group Number Insured Name Patient Relationship to Insured Coverage Start Date Coverage End Date [facility] [employer] Claims [address] [place] Rodríguez [id number] [phone] [id number] Meena Hidalgo Self - patient is the insured Medical (General) History Medical History History ICD Code type 2 diabetes depression/anxiety hyperlipidemia psychophysiological insomnia osteopenia adnexal mass HTN asthma [place] 02/24/19 fatty liver uterine fibroid Arthritis Back,Hip,and [...]
--- OUTSIDE RECORDS SUMMARY | 2025-03-17 13:14 | XMS_ITS | Encounter Summary ---
Author Organization [employer] Address [address] [place] [address] 7 [place] [address] Care Team Providers Care Stripper Latex Name Role Phone Hernan Urbina MD Primary Care Prov ider Reason for Visit * Reason Comments Med Refill Encounter Details Date Type Department Care Team ([facility] Contact Info) Description 09/12/2023 Refill [facility] & [facility]ED[facility] [address] [place], [place] [phone] Christopher Spence MD [address] [place], [place] [phone] Social History Tobacco Use Types Packs/Day Years [...] Upcoming Encounters Date Type Department Care Team ([facility] Contact Info) Description 03/29/2025 2:15 PM EDT Telemedicine [facility] CHC MED & PEDS [address] [place] [address] Hernan Urbina MD [address] [place] [address] 05/03/2025 2:00 PM EDT Office Visit [facility] ADULT DENTAL [address] [place], [place] [phone] Domingo Spence documented as of this encounter Visit Diagnoses Not on filedocumented in this encounter Care Teams Stripper Latex Relationship Specialty Start Date End Date Hernan Urbina MD [address] [place] [address] PCP - General Internal Medicine 01/21/25 documented as of this encounter
--- OUTSIDE RECORDS SUMMARY | 2025-03-17 13:14 | XMS_ITS ---
Author Organization [facility] Address [address] [place] [address] Care Team Providers Care Contract Paralegal Name Role Phone Hernan Wasserman Primary Care Provider Unavailable Kathrine Cheema [phone] REASON FOR VISIT r/s for sooner apt Encounters Encounter Location Date Provider Diagnosis [facility] [address] [place] [address] 11/19/2024 Kathrine Cheema Plan Of Treatment Next Appt Details Provider Name:Kathrine armando, 04/05/2025 02:45:00 PM, [address] [place], [address], Progress Notes * Judie TOLLIVERB:[birth year] (70 yo F)Acc No.[id number]:11/19/2024 Progress Note Patient:?Meena TOLLIVER Provider:?Kathrine Cheema DPM :1955???Age:69 Y???Sex:Female D ate:11/19/2024 Address:[address] [place] [address], [address], [place] Pcp:Hernan wu Subjective: * Chief Complaints: * [...]
--- OUTSIDE RECORDS SUMMARY | 2025-03-17 13:14 | XMS_ITS | Encounter Summary ---
Author Organization [employer] Address [address] 7t [place] [address] Care Team Providers Care Padder Cushion Name Role Phone Hernan Urbina MD Primary Care Prov ider Reason for Visit * Reason Onset Date Comments Appointment 05/20/2023 Encounter Details Date Type Department Care Team ([facility] st Contact Info) Description 05/20/2023 Telephone [facility] [address] [place] [address] Thompson Cobb DDS [address] [facility] [place] [address] Appointment Social History Tobacco Use Types Packs/Day [...] Info) Description 03/29/2025 2:15 PM EDT Telemedicine [facility] MED & PEDS [address] [place] [address] Hernan Urbina MD [address] [place] [address] 05/03/2025 2:00 PM EDT Office Visit [facility] ADULT DENTAL [address] [place] [address] Domingo Spence documented as of this encounter Visit Diagnoses Not on filedocumented in this encounter Care Teams Padder Cushion Relationship Specialty Start Date End Date Hernan Urbina MD [address] [place] [address] PCP - General Internal Medicine 01/21/25 documented as of this encounter
--- OUTSIDE RECORDS SUMMARY | 2025-03-17 13:14 | XMS_ITS | Encounter Summary ---
Author Organization [employer] Address [address] [facility] [address] 7[address] [place] [address] Care Team Providers Care Sales Support Specialist Name Role Phone Hernan Urbina MD Primary Care Prov ider Encounter Details Date Type Department Care Team (Late st Contact Info) Description 08/10/2024 Telephone [facility] ADULT DENTAL [address] [place] [address] Neha Felder DMD Social History Tobacco Use [...] Info) Description 03/29/2025 2:15 PM EDT Telemedicine [facility] CHC MED & PEDS 505 [place], [place] [phone] Hernan Urbina MD [address] [place], [place] [phone] 05/03/2025 2:00 PM EDT Office Visit [facility] ADULT DENTAL [address] [place] [address] Domingo Spence documented as of this encounter Visit Diagnoses Not on filedocumented in this encounter Care Teams Sales Support Specialist Relationship Specialty Start Date End Date Hernan Urbina MD [address] [place] [address] PCP - General Internal Medicine 01/21/25 documented as of this encounter
--- OUTSIDE RECORDS SUMMARY | 2025-03-17 13:14 | XMS_ITS ---
Author Organization [facility] Address [address] [facility] [place] [address] Care Team Providers Care Commercial Subcontractor Name Role Phone Hernan Wasserman Primary Care Provider Unavailable Kathrine Cheema Unavailable [phone] Allergies Allergen (clinical drug ingredient) Drug/Non Drug [...] other tobacco user? No Vital Signs Height 5np77vj in 11/16/2024 Weight 128 lbs 11/16/2024 BMI 25.85 kg/m2 11/16/2024 Blood pressure systolic 130 mm Hg 11/16/19 25 Blood pressure diastolic 76 mm Hg 025 Encounters Encounter Location Date Provider Diagnosis [facility] [address] [address] 11/16/2024 Kathrine Cheema Type 2 diabetes mellitus [...] Provider Name:Kathrine armando, 04/05/2025 02:45:00 PM, [address] [place], [address], Procedure Notes * Category Sub-Category Detail Notes [...] instrumentation by the physician of record - 46998 Progress Notes * Judie TOLLIVERB:[birth year] (69 yo F)Acc No.[id number]:11/16/2024 Progress Note Patient:?Meena TOLLIVER Provider:?Kathrine Cheema DPM :1955???Age:69 Y???Sex:Female D ate:11/16/2024 Address:[address] [place], [place] [phone] Pcp:Alvin Rodriguez Subjective: * Chief Complaints: * [...] - Side Effectsyes[Allergies Verified] Objective: * Vitals:?Ht: 9ii95tg, Wt:128, BMI:25.85, Shoe size: 5, BP:130/76mm Hg, [...] instrumentation by the physician of record - 62001.? * Procedure Codes:?77173 TRIM SKIN LESIONS, OVER 4, Modifiers: XS [...]
== END 2025-03-17 13:35 | disposition home or self-care (01) ==
LOC: HO.HUSH 12:28
PROVIDERS: PCP Internal Medicine; Visit Provider Urology
DX: R31.29 Other microscopic hematuria (principal); C67.9 Malignant neoplasm of bladder, unspecified
CPT/HCPCS: 99214; G2211

== ENCOUNTER 2025-03-22 09:38 | Outpatient (REF) | payer OTHER, SELFPAY ==
--- OUTSIDE RECORDS SUMMARY | 2025-03-22 10:36 | XMS_ITS | Encounter Summary ---
Author Organization [employer] [facility] Address 75 [facility] 7 [place] [address] Care Team Providers Care Diversional Therapist'S Assistant Name Role Phone Hernan Urbina MD Primary Care Prov ider Encounter Details Date Type Department Care Team (Latest Contact Info) Description 04/14/2019 Abstract [facility] CONVERSIONS Dental, Provider, DDS Social History [...] Description 03/29/2025 2:15 PM EDT Telemedicine [facility] [address] [place] [address] Hernan Urbina MD [address] [place] [address] 05/03/2025 2:00 PM EDT Office Visit [facility] ADULT D[facility] [address] [place] [address] Domingo Spence documented as of this encounter Visit Diagnoses Not on filedocumented in this encounter Care Teams Diversional Therapist'S Assistant Relationship Specialty Start Date End Date Hernan Urbina MD [address] [place] [address] PCP - General Internal Medicine 01/21/25 documented as of this encounter
--- OUTSIDE RECORDS SUMMARY | 2025-03-22 10:36 | XMS_ITS | Encounter Summary ---
Author Organization [employer] [facility] Address 75 [facility] 7 [place] [address] Care Team Providers Care Medical Anthropologist Name Role Phone Hernan Urbina MD Primary Care Prov ider Encounter Details Date Type Department Care Team (Latest Contact Info) Description 02/02/2021 Abstract [facility] CONVERSIONS Dental, Provider, [...] Info) Description 03/29/2025 2:15 PM EDT Telemedicine [facility] MED & PEDS [address] [place] [address] Hernan Urbina MD [address] [place] [address] 05/03/2025 2:00 PM EDT Office Visit [facility] ADULT DENTAL [address] [place] [address] Domingo Spence documented as of this encounter Visit Diagnoses Not on filedocumented in this encounter Care Teams Medical Anthropologist Relationship Specialty Start Date End Date Hernan Urbina MD [address] [place] [address] PCP - General Internal Medicine 01/21/25 documented as of this encounter
--- OUTSIDE RECORDS SUMMARY | 2025-03-22 10:36 | XMS_ITS | Encounter Summary ---
Author Organization [employer] Address [address] [facility] [address] 7[address] [place] [address] Care Team Providers Care Manager Unit Name Role Phone Hernan Urbina MD Primary Care Prov ider Encounter Details Date Type Department Care Team (Late st Contact Info) Description 01/24/2025 Orders Only [facility] MED & PEDS [address] [place], [place] [phone] Hernan Urbina MD [address] [place] [address] Social History Tobacco Use Types Packs/Day Years [...] Description 03/29/2025 2:15 PM EDT Telemedicine [facility] [address] [place] [address] Hernan Urbina MD [address] [place] [address] 05/03/2025 2:00 PM EDT Office Visit [facility] ADULT D[facility]AL [address] [place] [address] Domingo Spence documented as of this encounter Visit Diagnoses Not on filedocumented in this encounter Additional Health Concerns Assessment Noted Time PHQ-9 Depression Total Score: 2 12/21/19 8:57 AM EST documented as of this encounter Care Teams Manager Unit Relationship Specialty Start Date End Date Hernan Urbina MD [address] [place] [address] PCP - General Internal Medicine 01/21/25 documented as of this encounter
--- OUTSIDE RECORDS SUMMARY | 2025-03-22 10:36 | XMS_ITS | Encounter Summary ---
Author Organization [employer] [facility] Address [address] [facility] 7 [place] [address] Care Team Providers Care Grant Officer Name Role Phone Hernan Urbina MD Primary Care Prov ider Encounter Details Date Type Department Care Team (Latest Contact Info) Description 04/15/2022 Abstract [facility] CONVERSIONS Dental, Provider, DDS Social [...] Info) Description 03/29/2025 2:15 PM EDT Telemedicine [facility] MED & PEDS [address] [place] [address] Hernan Urbina MD [address] [place] [address] 05/03/2025 2:00 PM EDT Office Visit [facility] ADULT DENTAL [address] [place] [address] Domingo Spence documented as of this encounter Visit Diagnoses Not on filedocumented in this encounter Care Teams Grant Officer Relationship Specialty Start Date End Date Hernan Urbina MD [address] [place] [address] PCP - General Internal Medicine 01/21/25 documented as of this encounter
--- OUTSIDE RECORDS SUMMARY | 2025-03-22 10:36 | XMS_ITS | Encounter Summary ---
Author Organization [facility] Address [address] [facility] 7 [place] [address] Care Team Providers Care Slip Presser Name Role Phone Hernan Urbina MD Primary Care Prov ider Encounter Details Date Type Department Care Team (Late st Contact Info) Description 11/01/2022 Abstract [facility] ADULT DENTAL [address] [place] [address] Thompson Cobb, DDS [address] [place] [address] Social History Tobacco Use Types Packs/Day Years [...] 03/29/2025 2:15 PM EDT Telemedicine [facility] MED & PEDS [address] [place] [address] Hernan Urbina MD [address] [place] [address] 05/03/2025 2:00 PM EDT Office Visit [facility] ADULT DENTAL [address] [place], [place] [phone] Domingo Spence documented as of this encounter Visit Diagnoses Not on filedocumented in this encounter Care Teams Slip Presser Relationship Specialty Start Date End Date Hernan Urbina MD [address] [place] [address] PCP - General Internal Medicine 01/21/25 documented as of this encounter
--- OUTSIDE RECORDS SUMMARY | 2025-03-22 10:36 | XMS_ITS ---
Author Organization [facility] [place] [facility] Address [address] [facility] [place] [address] Care Team Providers Care Making Department Preparer Name Role Phone Hernan Wasserman Primary Care Provider Unavailable Kathrine Cheema Unavailable [phone] Allergies Allergen (clinical drug ingredient) Drug/Non Drug [...] other tobacco user? No Vital Signs Height 2kn38ss in 01/25/2025 Weight 137 lbs 01/25/2025 BMI 27.67 kg/m2 01/25/2025 Blood pressure systolic 130 mm Hg 01/26/20 Blood pressure diastolic 77 mm Hg 025 Encounters Encounter Location Date Provider Diagnosis [facility] [address] [address] 01/25/2025 Kathrine Anette Type 2 diabetes mellitus with polyneuropathy E11.42 Assessments Encounter Date Diagnosis (ICD Code) Assessment Notes Treatment Notes Treatment Clinical Notes Section Notes 01/25/2025 Type 2 diabetes mellitus with polyneuropathy (ICD-10 - E11.42) 01/25/2025 Other Plan Of Treatment Next Appt Details Follow Up: 2 Months, Reason: Provider Name:Kathrine Armando Jorge Luis armando, 04/05/2025 02:45:00 PM, [address] [place] [address], [address], Procedure Notes * Category Sub-Category Detail Notes [...] instrumentation by the physician of record - [id number] Progress Notes * Hue TOLLIVER:[birth year] (69 yo F)Acc No.[id number]:01/25/2025 Progress Note Patient:?Meena TOLLIVER Provider:?Kathrine Cheema DPM :1955???Age:69 Y???Sex:Female D ate:01/25/2025 Address:[address] [place] [address], [address] [facility], [facility] Pcp:Hernan wu Subjective: * Chief Complaints: * [...] - Side Effectsyes[Allergies Verified] Objective: * Vitals:?Ht: 9tt48ir, Wt:137, BMI:27.67, Shoe size: 5, BP:130/77mm Hg, [...] instrumentation by the physician of record - 35865.? * Procedure Codes:?35144 TRIM SKIN LESIONS, OVER 4, Modifiers: XS [...] Cheema DPM Date:? Generated for Osmar brito/Raheel/Bridgett on:?03/22/2025 10:36 AM EDT History and Physical Notes * [...]
--- OUTSIDE RECORDS SUMMARY | 2025-03-22 10:36 | XMS_ITS | Encounter Summary ---
Author Organization [employer] Address [address] [facility] [facility] [address] 7[address] [place] [address] Care Team Providers Care Broodmare Foreman Name Role Phone Hernan Urbina MD Primary Care Prov ider Encounter Details Date Type Department Care Team (Late st Contact Info) Description 11/15/2024 Telephone [facility] ADULT DENTAL [address] [place] [address] Neha Felder DMD Social History Tobacco Use [...] Info) Description 03/29/2025 2:15 PM EDT Telemedicine [facility] CHC MED & PEDS [address] [place], [place] [phone] Hernan Urbina MD [address] [place] [address] 05/03/2025 2:00 PM EDT Office Visit [facility] ADULT DENTAL [address] [place] [address] Domingo Spence documented as of this encounter Visit Diagnoses Not on filedocumented in this encounter Care Teams Broodmare Foreman Relationship Specialty Start Date End Date Hernan Urbina MD [address] [place] [address] PCP - General Internal Medicine 01/21/25 documented as of this encounter
--- OUTSIDE RECORDS SUMMARY | 2025-03-22 10:37 | XMS_ITS | Encounter Summary ---
Author Organization [employer] Address [address] [place] [address] 7 [place] [address] Care Team Providers Care Construction Carpenters Helper Name Role Phone Hernan Urbina MD Primary Care Prov ider Reason for Visit * Reason Comments Med Refill Encounter Details Date Type Department Care Team (Late Contact Info) Description 09/12/2023 Refill [facility] MED & PEDS [address] [place], [place] [address] Christopher Spence MD [address] [place], [place] [phone] Social History Tobacco Use Types Packs/Day Years [...] Upcoming Encounters Date Type Department Care Team [facility]) Description 03/29/2025 2:15 PM EDT Telemedicine [facility] CHC MED & PEDS [address] [place] [address] Hernan Urbina MD [address] [place] [address] 05/03/2025 2:00 PM EDT Office Visit [facility] ADULT DENTAL [address] [place], [place] [phone] Domingo Spence documented as of this encounter Visit Diagnoses Not on filedocumented in this encounter Care Teams Construction Carpenters Helper Relationship Specialty Start Date End Date Hernan Urbina MD [address] [place] [address] PCP - General Internal Medicine 01/21/25 documented as of this encounter
--- OUTSIDE RECORDS SUMMARY | 2025-03-22 10:37 | XMS_ITS | Encounter Summary ---
Author Organization [employer] Address [address] [facility] [facility] [address] 7[address] [place] [address] Care Team Providers Care Barrel Centerer Name Role Phone Hernan Urbina MD Primary Care Prov ider Encounter Details Date Type Department Care Team (Late st Contact Info) Description 08/10/2024 Telephone [facility] ADULT DENTAL [address] [place] [address] Neha Felder DMD Social History Tobacco Use [...] [facility] PEDS [address] [place], [place] [phone] Hernan Urbina MD [address] [place], [place] [phone] 05/03/2025 2:00 PM EDT Office Visit [facility] ADULT DENTAL [address] [place] [address] Domingo Spence documented as of this encounter Visit Diagnoses Not on filedocumented in this encounter Care Teams Barrel Centerer Relationship Specialty Start Date End Date Hernan Urbina MD [address] [place] [address] PCP - General Internal Medicine 01/21/25 documented as of this encounter
--- OUTSIDE RECORDS SUMMARY | 2025-03-22 10:37 | XMS_ITS ---
Author Organization [facility] Address [address] [facility] [place] [address] Care Team Providers Care Senior Controls Technician Name Role Phone Hernan Wasserman Primary Care Provider Unavailable Kathrine Cheema Unavailable [phone] Allergies Allergen (clinical drug ingredient) Drug/Non Drug [...] other tobacco user? No Vital Signs Height 2mj95wh in 11/16/2024 Weight 128 lbs 11/16/2024 BMI 25.85 kg/m2 11/16/2024 Blood pressure systolic 130 mm Hg 11/16/19 25 Blood pressure diastolic 76 mm Hg 025 Encounters Encounter Location Date Provider Diagnosis [facility] [address] [address] 11/16/2024 Kathrine Cheema Type 2 diabetes mellitus [...] Provider Name:Kathrine armando, 04/05/2025 02:45:00 PM, [address] [place], [address], Procedure Notes * Category Sub-Category Detail Notes [...] instrumentation by the physician of record - 71309 Progress Notes * Judie TOLLIVERB:[birth year] (69 yo F)Acc No.[id number]:11/16/2024 Progress Note Patient:?Meena TOLLIVER Provider:?Kathrine Cheema DPM :1955???Age:69 Y???Sex:Female D ate:11/16/2024 Address:[address] [place], [place] [address] Pcp:Alvin Rodriguez Subjective: * Chief Complaints: * [...] - Side Effectsyes[Allergies Verified] Objective: * Vitals:?Ht: 8dn17iu, Wt:128, BMI:25.85, Shoe size: 5, BP:130/76mm Hg, [...] instrumentation by the physician of record - 74516.? * Procedure Codes:?49433 TRIM SKIN LESIONS, OVER 4, Modifiers: XS [...] Provider:?Kathrine Cheema DPM Date:? Generated for Osmar brito/Rhaeel/Bridgett on:?03/22/2025 10:37 AM EDT History and Physical Notes * [...]
--- OUTSIDE RECORDS SUMMARY | 2025-03-22 10:37 | XMS_ITS | Data Portability ---
Author Organization [employer] [facility] [place] [facility] Address [address] [place] [address] Care Team Providers Care Psychiatric Lpn Name Role Phone HIM CCA OTHER Assessment Encounter Date Assessment Date Assessment LastModified by Organization Details LastModified Time 03/08/2024 03/08/2024 I provided real -time medical direction via phone for this encounter, and was available for additional phone based assistance as needed. I have reviewed and agree with the Assessment and Plan as documented by the Chief Dispatcher. We discussed the diagnostic uncertainty of home [...] to call 911- verbalized understanding of instruction [email or web address] Not available 03/08/2024 16:23:50 Plan of Treatment Reminders Order Date Submit Date Provider Last Modified By Organization Details Last Modified Time Details Appointments None recorded. Lab culture, urine 2023 024 [email or web address] [facility] (Centralized Electronic Ordering - All Locations), Patient Can Go To The Location Of Their Choice, [address] 4 11:16:43 urinalysis , dipstick 2023 024 [email or web address] 0 [facility], [address] [place] [address], [address] 4 15:54:29 glucose, fingerstic k, blood 2023 024 [email or web address] 0 [facility], [address] [place] [address], [address] 15:55:15 BMP, serum or plasma 2023 024 [email or web address] 0 [facility] - [address], [address] 17:20:49 Referral None recorded. Procedures None recorded. Surgeries None recorded. Imaging None recorded. Medication Orders Pyridium 100 mg tablet 2023 024 [id number], [address] [place], [place], [phone], 16:23:58 Patient TargetsNo targets recorded. Patient InstructionsNo instructions recorded. Reason for Referral None Reported. Results Created Date Observation Date Name Description Value Unit Range Abnormal Flag Note LastModifiedBy Organization Detail LastModifiedTime 03/08/20 24 03/08/2024 BMP, serum or plasm a GLU 293 Not Available [facility] - [facility] [address], [address] [place] [address] 03/08/2024 16:23:59 03/08/20 24 03/08/2024 gluco se, finge rstic k, blood Blood Glucose: mg/dl 313 Not Available [facility] - [address], [address] [place] [address] 03/08/2024 15:54:50 03/08/20 24 03/08/2024 urina lysis , dipst ick Leukocytes neg Not Available [facility] - [address], [address] 03/08/2024 15:52:25 03/08/20 24 03/08/2024 urina lysis , dipst ick Nitrite negati ve Not Available [facility] - [address], [address] 03/08/2024 15:52:25 03/08/20 24 03/08/2024 urina lysis , dipst ick pH 5 Not Available [facility] [address], [address] 03/08/2024 15:52:25 03/08/20 24 03/08/2024 urina lysis , dipst ick Blood neg Not Available [facility] [address], [address] 03/08/2024 15:52:25 03/08/20 24 03/08/2024 urina lysis , dipst ick Specific [place] 1.005 Not Available Main - [address], [address] 03/08/2024 15:52:25 03/08/20 24 03/08/2024 urina lysis , dipst ick Ketone neg Not Available [facility] [address], [address] 03/08/2024 15:52:25 03/08/20 24 03/08/2024 urina lysis , dipst ick Glucose 3+ Not Available [facility] [address], [address] 03/08/2024 15:52:25 03/08/20 24 03/08/2024 urina lysis , dipst ick Appearance clear Not Available [facility] - [address], [address] 03/08/2024 15:52:25 03/08/20 24 03/08/2024 urina lysis , dipst ick Color yellow Not Available [facility] [address], [address] 03/08/2024 15:52:25 Result Notes None recorded. Medical Equipment None Reported. Allergies Allergen ID Allergen Name Allergen Category Reaction Reaction Severity Criticality Documentation Date Start Date Code Code System Note Provider Name and Address Organization Details Recorded Time 5042 Oxycontin medicatio n Not available Not available Not available 03/08/2024 11537 6 RxNorm Not Available [employer] 13:38:50 5043 shrimp allergeni c extract food Not available Not available Not available 03/08/2024 25795 2 RxNorm Mercy Castillo MD [address] [place] [address],[address], [place], [address], [employer] 15:52:46 9967 metformin medicatio n Not available Not available Not available 09/02/2024 6809 RxNorm Not Available [employer] production 13:38:50 Medications Name Sig Start [...] Address Organization Details Last Updated DateTime 4 32129.1 44 g 98.2 [degF] 96 % 96 % 18 /min 149.86 cm 72 /min 146 mm[Hg] 81 mm[Hg] Not Available [employer] 4 15:50:30 Date Recorded Oxygen saturation Oxygen saturation in Arterial blood by Pulse oximetry Body temperature Heart rate Respiratory rate Systolic blood pressure Diastolic blood pressure Provider Name and Address Organization Details Last Updated DateTime 4 98 % 98 % 98.3 [degF] 106 /min 20 /min 180 mm[Hg] 92 mm[Hg] Not Available [employer] 15:59:56 Social History None recorded. Functional Status None recorded. Mental Status None recorded. Family History Nothing Reported. Medical History No medical history recorded. Gynecological HistoryNo gynecological history recorded. Obstetrics History GPAL:G 0 P 0 0 0 0 Past Encounters Encounter ID Performer Location Encounter Start Date Encounter Closed Date Diagnosis/Indication Diagnosis SNOMED-CT Code Diagnosis ICD10 Code Diagnosis Note [id number] Mercy Castillo MD [facility] [address] [place] [phone] 03/08/2024 15:50:25 03/09/2024 11:54:56 Urinary symptoms 052277327 R39.9 No evidence of UTI based on dip she has glycosuria which could be causing the urgency and frequency- bmp ordered- nl renal function/ stable H & H.Will send urine culture and will call if UC positive for infection. Pat request Rx to go to [address]- made aware of Good RX card to defray cost - also have otc version- advised will turn urine bright orangey red- can stain underwear/ advised wearing pad for 3 -4 days PC team: Had bagels and grapes today- needs dietary consult re lower glycemic index foods- medic attempted to explain [id number] LYUDMILA DAMIAN MD [facility] - [facility] [address] [place] [phone] 09/02/2024 15:51:56 09/02/2024 21:41:56 Pain of right hip joint 8357702914 41746 M25.551 Evaluation in the field was performed by my semiconductor wafers etch operator colleague, as noted above, I provided real-time [...] and treatment. -An expect was called at [facility] Primary care, consider__ _ Dispositio n:We discussed the situation and I recommende d referral to the emergency department . An expect was called at [facility] Health Concerns Section Related Observation LastModified by Organization Detai ls LastModified Time None Recorded Concern Status LastModified by Organization Details LastModified Time None Recorded Advance Directives Directive None Recorded Payers Insurance Date Sequence Insurance Name Policy Number Policy Meza Covered Member ID Meza Member ID Guarantor Name 09/02/2024 1 [facility] - DOS ON OR AFTER 2023 - DUAL ELIGIBLE - INTERMEDIATE OPTIONS AND ONE CARE (MEDICARE REPLACEMENT/ADV ANTAGE - HMO) Meena Hidalgo [id number] Meena Hidalgo Notes Date Note Type Note [...] UTI/Pyelonephritis , Abdominal Pain Allergies: Unknown Comments: Wall Crane Operator verified the member's name//address and phone [...] - S/S for 3 days. Wellness check. Chief Dispatcher POC Test Results from [facility] Urine [...] .................. .................. .................. .................. .................. .................. ............... Chief Dispatcher Note From [facility]: Sent to a [...] she has history of diabetes, CHF, and [place]. Pt states she takes Farxiga, Januvia, and Glipizide. Pt also takes Eliquis. Pt reports allergy to Oxycontin, causing hallucinations. BP:146/81, P:72, RR:18, SpO2:96% RA, T:98.2, B; Head: unremarkable; Lung sounds: clear bilaterally; Abdomen: soft, non-tender, distention; Back: no CVA tenderness; Extremities: no peripheral edema; Skin: pink, warm, dry; Urine sample obtained: yellow, clear, concentrated; Urine dip results: uploaded to [employer]. [facility] consulted and orders POC bloodwork and urine culture to be sent to [facility]. Venous blood draw performed; Istat Chem8+ results: uploaded to [employer]. [facility] sends script to pt's pharmacy for pyridium. [...] ............... Disposition: Fulfilled Mercy Castillo MD [address] [place] [address],[address], [place], [address], [employer] 03/08/2024 17:20:55 09/02/2024 text/html HPI: Mbr called [...] .................. .................. .................. .................. .................. .................. ............... Chief Dispatcher Note From Arjun Hubbard: Dispatched to the [...] afebrile, mucous membranes pink and moist, -edema, [facility] consulted. 911 called on behalf of the Pt, [employer] transported Pt to [facility]. ALL times are approx. .................. .................. .................. .................. .................. .................. .................. ............... [facility] Consulted: Lyudmila Damian .................. .................. .................. .................. .................. .................. .................. ............... Disposition: Fulfilled LYUDMILA DAMIAN MD [address] [facility], [place], [address], [employer] 09/02/2024 19:04:26 OBGyn Episode No OBEpisode recorded.
--- OUTSIDE RECORDS SUMMARY | 2025-03-22 10:37 | XMS_ITS ---
Author Organization [facility] Address [address] [place] [address] Care Team Providers Care Park Services Specialist Name Role Phone Hernan Wasserman Primary Care Provider Unavailable Kathrine Cheema [phone] REASON FOR VISIT r/s for sooner apt Encounters Encounter Location Date Provider Diagnosis [facility] [address] [place] [address] 11/19/2024 Kathrine Cheema Plan Of Treatment Next Appt Details Provider Name:Kathrine armando, 04/05/2025 02:45:00 PM, [address] [place], [address], Progress Notes * Judie TOLLIVERB:[birth year] (70 yo F)Acc No.[id number]:11/19/2024 Progress Note Patient:?Meena TOLLIVER Provider:?Kathrine Cheema DPM :1955???Age:69 Y???Sex:Female D ate:11/19/2024 Address:[address] [place] [address], [address], [place] Pcp:Hernan wu Subjective: * Chief Complaints: * [...]
--- OUTSIDE RECORDS SUMMARY | 2025-03-22 10:37 | XMS_ITS | Encounter Summary ---
Author Organization [employer] Address [address] [facility] [address] [place] [address] Care Team Providers Care Fast Brim Pouncer Name Role Phone Hernan Urbina MD Primary Care Prov ider Reason for Visit * Reason Onset Date Comments Appointment 05/20/2023 Encounter Details Date Type Department Care Team ([facility] st Contact Info) Description 05/20/2023 Telephone [facility] [address] [place] [address] [address] [facility] DDS [address] [facility] [address] Appointment Social History Tobacco Use Types Packs/Day [...] [facility] MED [facility] PEDS [address] [place] [address] Hernan Urbina MD [address] [place] [address] 05/03/2025 2:00 PM EDT Office Visit [facility] ADULT DENTAL [address] [place] [address] Domingo Spence documented as of this encounter Visit Diagnoses Not on filedocumented in this encounter Care Teams Fast Brim Pouncer Relationship Specialty Start Date End Date Hernan Urbina MD [address] [place] [address] PCP - General Internal Medicine 01/21/25 documented as of this encounter
--- OUTSIDE RECORDS SUMMARY | 2025-03-22 10:37 | XMS_ITS | Patient Health Record ---
Author Organization [facility] Address [address] [facility] [place] [address] Care Team Providers Care Washing Machine Assembler Name Role Phone Hernan Wasserman Primary Care Provider Unavailable Kathrine Cheema Unavailable [phone] Allergies Allergen (clinical drug ingredient) Drug/Non Drug [...] Problem Acquired hammer toe of right foot ([id number] 9105) Other hammer toe(s) (acquired), right foot (M20.41) Active confirmed Problem Acquired hammer toe of left foot (272871629031 9103) Other hammer toe(s) (acquired), left foot (M20.42) Active confirmed Problem 176038414 Neuropathy (G62.9) Active confirmed Problem 27382404 Type 2 diabetes mellitus with polyneuropathy (E11.42) Active confirmed Problem 401113792 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) Active confirmed Vital Signs Blood pressure diastolic 77 mm Hg 01/25/2025 Height 7sz06fd in 01/25/2025 Blood pressure systolic 130 mm Hg 01/25/2025 Weight 137 lbs 01/25/2025 BMI 27.67 kg/m2 01/25/2025 Encounters Encounter Location Date Provider Diagnosis [facility] [address] [address] 06/15/2024 Kathrine Cheema Type 2 diabetes mellitus with polyneuropathy E11.42 [facility] [address] [address] 11/16/2024 Kathrine Cheema Type 2 diabetes mellitus with polyneuropathy E11.42 ; Other hammer toe(s) (acquired), right foot M20.41 and Other hammer toe(s) (acquired), left foot M20.42 [facility] [address] 01/25/2025 Kathrine Cheema Type 2 diabetes mellitus with polyneuropathy E11.42 [facility] [address] 06/15/2024 Kathrine Kangprabha [facility] [address] 09/07/2024 Kathrine Kangprabha [facility] [address] 09/07/2024 Kathrine Cheema Assessments Encounter Date Diagnosis (ICD Code) Assessment Notes Treatment Notes Treatment Clinical Notes Section Notes 06/15/2024 Type 2 diabetes mellitus with polyneuropathy [...] Next Appt Details Provider Name:Kathrine Prabha armando, 04/05/2025 02:45:00 PM, [address] [place] [address], [address], Insurance Providers Payer Name Payer Address Payer Phone Subscriber Number Group Number Insured Name Patient Relationship to Insured Coverage Start Date Coverage End Date [facility] [employer] Claims [address] [place] [phone] [id number] Meena Hidalgo Self - patient is the insured Medical (General) History Medical History History ICD Code type 2 diabetes depression/anxiety hyperlipidemia psychophysiological insomnia osteopenia adnexal mass HTN asthma SD 02/24/19 fatty liver uterine fibroid Arthritis Back,Hip,and [...]
--- OUTSIDE RECORDS SUMMARY | 2025-03-22 10:37 | XMS_ITS | Clinical Summary ---
Author Organization [employer] Address [address] [place] [address] Care Team Providers Care Photo Technologist Name Role Phone Hernan Urbina MD Primary [...] EST): Last pcp visit 1 year at [facility] ER: November due to vaginal bleeding, back pain [facility]: 6 years ago due to NC s/p stent x2 Pmhx: DM, HTN, Cholesterol, NC s/p stent x2, CHF, atrial fibrillation Pshx: [...] Data 03/04/2025 2:00 PM EDT Office Visit [facility] [address] [place] [address] Neha Felder, GLORIA 03/02/2025 Refill [facility] [address] [place] [address] Hernan Urbina MD Type 2 diabetes mellitus with diabetic peripheral angiopathy without gangrene, without long-term current use of insulin ([facility]) 02/25/2025 Travel 02/22/2025 2:45 PM EDT Office Visit [facility] [address] [place] [address] Hernan Urbina MD Gross hematuria (Primary Dx); Primary hypertension 02/22/2025 Travel 02/10/2025 1:00 PM EDT Office Visit [facility] [address] [place] [address] Neha Felder, DMD 02/10/2025 Telephone [facility] [address] [place] [address] Hernan Urbina MD ER Follow-up 02/07/2025 Travel 01/24/2025 Orders Only [facility] [address] [place] [address] Hernan Urbina MD 01/21/2025 9:30 AM EDT Office Visit [facility] [address] [place] [address] Hrenan Urbina MD Primary hypertension (Primary Dx); Type 2 diabetes mellitus with diabetic peripheral angiopathy without gangrene, without long-term current use of insulin (CMS/HCC); Encounter for screening mammogram for malignant neoplasm of breast 01/20/2025 Travel from Last 3 Months Family History [...] Description 03/29/2025 2:15 PM EDT Telemedicine [facility] [address] [place] [address] Hernan Urbina MD [address] [place] [address] 05/03/2025 2:00 PM EDT Office Visit [facility] [address] [place] [address] Domingo Spence Health Maintenance Due Date Last [...] 01/26/2019, 07/05, 07/21/2018 COVID-19 Vaccine (3 - season) 2024 11/20/2021, 04/12/2021 Influenza Vaccine [...] LEVEL 5 Routine 03/07/2025 11:33 AM EDT BLADDER CANCER, FISH Routine 03/07/2025 11:17 AM EDT GLUCOSE, WHOLE BLOOD Routine 03/07/2025 [...] gangrene, without long-term current use of insulin ([facility]) TSH W/REFLEX TO FT4 Routine 01/21/2025 1 0:39 AM EDT Type 2 diabetes mellitus with diabetic peripheral angiopathy without gangrene, without long-term current use of insulin ([facility]) LIPID PANEL, STANDARD Routine 01/21/2025 10:39 AM [...] 3 AM EDT 03/07/2025 12:09 PM EDT [facility] - 03/08/2025 4:08 PM EDT ----- ------- Name: Meena Hidalgo ?Age/Sex: 70/F ? : 1955 Unit#: [id number] ?? Attend Dr: Jean Busch MD ?Re03/07/25 ?Status: DEP SDC ? Location: HO.SSS ?Disch: ? ----- ------- SPEC : [id number] ? RECD: 03/07/25-1208 ? STATUS: ??SOUT ? REQ NUM: [id number] ? FAUSTO: 03/07/25-1133 ? SUBM DR: Jean Busch MD ? ENTERED: ??03/07/25-5 ?SP TYPE: Surgical ? OTHR DR: Hernan [...] submitted in toto in a cassette labeled A. CEDS This case was reviewed intradepartmentally. Copies To: ?? Jean Busch MD ?? [facility] ?? [address] ?? [place] [address] ?? [phone] ? CONTINUED ON NEXT PAGE ----- ------- Name: Meena Hidalgo ?Age/Sex: 70/F ? : 1955 Unit#: [id number] ?? Attend Dr: Jean Busch MD ?Re03/07/25 ?Status: DEP SDC ? Location: HO.SSS ?Disch: ? ----- ------- SPEC : [id number] ? RECD: 03/07/25 ? STATUS: ??SOUT ? REQ NUM: [id number] ? FAUSTO: 03/07/25-1132 ? SUBM DR: Jean Busch MD ? ENTERED: ??03/07/25-1214 ?SP TYPE: Surgical ? OTHR DR: Hernan Urbina MD ORDERED: ??Gross Micro L5 ? Copies To: ??(Continued) ?? Hernan Urbina MD ?? [facility] ?? [address] ?? [place] [address] ?? [phone] ----- ------- Signed (signature on file) Bianca Cooper MD 03/08/25 7858 ? ----- ------- ? END OF REPORT ? us Generic External Data Provider LAB BLOOD ORDERAB LES Final Result [facility] [address] [place] [address] [phone] * Bladder Cancer, FISH (03/07/2025 11:17 AM EDT) Bladder Cancer, FISH see note [facility] Comment: Order ID: ? [id number] Type: ?UrineClinical Indication: ?NOT GIVENRESULT:POSITIVE RESULT FOR THE UROVYSION FISH ASSAYINTERPRETATION:An abnormal hybridization pattern was observed with 12 out of 26cells exhibiting numerical abnormalities of chromosomes 3, 7, 9, and17. This result is indicative of bladder cancer according to theUroVysion Directional Insert ([employer]).Positive UroVysion results in the absence of other signs or symptomsof bladder cancer may be evidence of other urinary tract relatedcancers, e.g., ureter, urethra, renal, and/or prostate in males, andfurther patient follow-up is justified. If the test results are notconsistent with the clinical findings, a consultation between apathologist and the treating physician is warranted.The Vysis UroVysion test was designed for use on voided urinespecimens as an aid for the initial diagnosis of bladder carcinoma inpatients with hematuria and subsequent monitoring for tumorrecurrence in patients previously diagnosed with bladder cancer.Please expect the results of any other concurrent study in a separatereport.REFERENCE for SENSITIVITY and SPECIFICITY:Lacy LAURE and Baileyton BR. Bladder cancer detection using FISH(UroVysion assay). Adv Kelly Pathol 2008;15:279-86.NOMENCLATURE:nuc rupinder(D3Z1x4,D7Z1x4,BMLO3Pl9,K70K3m1)[10/28]ASSAY INFORMATION:Method: interphase FISH; Manual AnalysisCells Counted: >25Detection of >/= 4 of the 25 cells showing gains for 2 or morechromosomes (3, 7 or 17) in the same cell, or >/= 12 of the 25 cellshaving zero 9p21 signals is interpreted as a POSITIVE result.Although the UroVysion test was designed to detect genetic changesassociated with most bladder cancers, not all genetic changes can bedetected by this test.Donald Cornelius M.D.,Ph.D., [facility], Weaving Professor, [employer], Ushmnjsend Signature: ? 03/17/2025 3:50 PMTHIS TEST WAS PERFORMED AT:[place] [id number] [facility], V A ??[id number] CROFT MD,PHD 03/07/2025 11:1 7 AM EDT 03/07/2025 11:53 AM EDT us Generic External Data Provider LAB URINE ORDERAB LES Final Result Performing Organization Address City/[facility]/ZIP Co de Phone Number [facility] [address] [place] [phone] * (ABNORMAL) Glucose, Whole Blood (03/07/2025 9:37 AM EDT) Glucose, Whole Blood 226(H) 60 - 115 mg/dL [facility] Comment:METER #: [id number] 03/07/2025 9:37 AM EDT 03/07/2025 9:43 AM EDT us Generic External Data Provider LAB BLOOD ORDERAB LES Final Result Performing Organization Address [facility] Co de Phone Number [facility] [address] [place] [phone] * (ABNORMAL) Albumin, Random Urine W/Creatinine (01/21/2025 10:40 AM EDT) Creatinine, Urine 72.43 mg/dL [facility] Microalbumin Urine 27.0 mg/L [facility] Microalbum Creatinine Ratio Ur 37.2(H) <30 ug/mg cr [facility] Comment:Albumin/Creatinine R atio Reference Ranges: Normal: < 30 ug/mg creatinine Microalbuminuria: 30 - 300 ug/mg creatinineClinical Albuminuria: > 300 ug/mg creatinine Urine (Urine, Random) 01/21/2025 10:40 AM EDT 01/21/2025 2:08 PM EDT Hernan Aaron MD LAB URINE ORDERABL ES Final Result Performing Organization Address [facility]/ZIP Co de Phone Number [facility] [address] [place] [address] [phone] * TSH W/Reflex to FT4 (01/21/2025 10:39 AM EDT) TSH reflex Free T4 0.75 0.32 - 4.0 uIU/mL [facility] Blood Venous blood specimen / Unknown 01/21/2025 10:39 AM EDT 01/21/2025 2:05 PM EDT Hernan Aaron MD LAB BLOOD ORDERABL ES Final Result Performing Organization Address [facility] Co de Phone Number [facility] [address] [place] [phone] * (ABNORMAL) Lipid Panel, Standard (01/21/2025 10:39 AM EDT) Triglycerides 159(H) <150 mg/dL [facility] Comment:Desirable Triglyceri de: less than 150 mg/dLBorderline High Triglyceride 150-199 mg/dLHigh Triglyceride: 200-499 mg/dLVery High Triglyceride: greater than or equal to 5OO mg/dL Cholesterol 332(H) <200 mg/dL [facility] Comment:Desirable Cholestero l: less than 200 mg/dLBorderline High Cholesterol: 200-239 mg/dLHigh Cholesterol: greater than 239 mg/dL LDL Cholesterol Calculated 247(H) <100 mg/dL [facility] Comment:Desirable LDL: less than 100 mg/dLNear Optimal/Above Optimal LDL: 110- 129 mg/dLBorderline High LDL: 130-159 mg/dLHigh LDL: 160-189 mg/dLVery High LDL: greater than or equal to 190 mg/dL HDL Cholesterol 54 >40 mg/dL [facility] Comment:Desirable HDL: great er than 40 mg/dL Note: This HDL assay may give artificially low results in patients with liver disease. Blood Venous blood specimen / Unknown 01/21/2025 10:39 AM EDT 01/21/2025 2:05 PM EDT us Hernan Aaron MD LAB BLOOD ORDERABL ES Final Result [facility] [address] [place] [address] [phone] * (ABNORMAL) Comprehensive Metabolic Panel (01/21/2025 10:39 AM EDT) Sodium 139 135 - 145 mmol/L [facility] Potassium 4.4 3.3 - 5.1 mmol/L [facility] Chloride 103 96 - 108 mmol/L [facility] Carbon Dioxide 28 22 - 29 mmol/L [facility] Anion Gap 12 12 - 20 [facility] Urea Nitrogen (BUN) 19(H) 9 - 16 mg/dL [facility] Creatinine, Serum 0.69 0.5 - 1.4 mg/dL [facility] Estimated Glomerular Filt Rate >60 [facility] Comment:Chronic Kidney Disea se: Estimated GFR < 60 mL/min/1.52v6Rmegwe Kidney Disease: Estimated GFR < 15 mL/min/1.73m2 Glucose 209(H) 60 - 115 mg/dL [facility] Calcium 10.0 8.4 - 10.2 mg/dL [facility] Bilirubin, Total 0.8 0.0 - 1.0 mg/dL [facility] Aspartate Amino Transferase 21 5 - 31 U/L [facility] Alanine Aminotransferase 22 0 - 31 U/L [facility] Total Protein 8.2(H) 6.5 - 8.0 g/dL [facility] Albumin Level 4.5 3.5 - 5.0 g/dL [facility] Alkaline Phosphatase 83 39 - 117 U/L [facility] Blood Venous blood specimen / Unknown 01/21/2025 10:39 AM EDT 01/21/2025 2:05 PM EDT us Hernan Aaron MD LAB BLOOD ORDERABL ES Final Result [facility] [address] [place], [place] [phone] * (ABNORMAL) CBC auto differential (01/21/2025 10:34 AM EDT) White Blood Count 4.8 4.8 - 10.8 X10*3/uL [facility] Red Blood Count 4.74 4.20 - 5.50 X10*6/uL [facility] Hemoglobin 14.5 12.0 - 16.0 g/dl [facility] Hematocrit 43.4 37.0 - 47.0 % [facility] Mean Corpuscular Volume 91.6 80.0 - 98.0 fL [facility] Mean Corpuscular Hemoglobin 30.6 27.0 - 33.0 pg [facility] Mean Corpuscular HGB Conc 33.4 31.0 - 35.0 g/dl [facility] Red Cell Distribution Width 11.4 11.0 - 16.0 % [facility] Platelet Count 234 160 - 400 X10*3/uL [facility] Mean Platelet Volume 11.5 9.4 - 12.3 fL [facility] Neutrophils Percent Auto 66.6 45 - 73 % [facility] Imm Gran Pct Auto 0.2 0.0 - 0.4 % [facility] Lymphocytes Percent Auto 22.5 20 - 40 % [facility] Monocytes Percent Auto 8.8 2 - 11 % [facility] Eosinophils Percent Auto 1.7 0 - 4 % [facility] Basophils Percent Auto 0.2 0 - 2 % [facility] NRBC Pct Auto 0.0 0.0 - 0.2 /100WBC [facility] Neutrophils Absolute Auto 3.2 2.0 - 8.3 x10*3/uL [facility] Imm Gran Abs Auto 0.01 0.00 - 0.03 X10*3/uL [facility] Lymphocytes Absolute Auto 1.1(L) 1.2 - 4.9 X10*3/uL [facility] Monocytes Absolute Auto 0.4 0.1 - 1.2 X10*3/uL [facility] Eosinophils Absolute Auto 0.1 0.0 - 0.4 X10*3/uL [facility] Basophils Absolute Auto 0.0 0.0 - 0.2 X10*3/uL [facility] NRBC Abs Auto 0.000 0.0 - 0.012 X10*3/uL [facility] Blood Venous blood specimen / Unknown 01/21/2025 10:34 AM EDT 01/21/2025 2:05 PM EDT Hernan Aaron MD LAB BLOOD ORDERABL ES Final Result Performing Organization Address [facility] Co de Phone Number [facility] [address] [place] [phone] * Hepatitis C Antibody with Reflex to HCV, RNA, Quantitative, Real-Time PCR (01/21/2025 10:34 AM EDT) Hepatitis C Antibody Nonreactive Nonreactive [facility] Comment:Antibodies to HCV no t detected; does not exclude early acuteHCV infection. Blood Venous blood specimen / Unknown 01/21/2025 10:34 AM EDT 01/21/2025 2:05 PM EDT Hernan Aaron MD LAB BLOOD ORDERABL ES Final Result Performing Organization Address [facility] Co de Phone Number [facility] [address] [place] [phone] * HIV-1/2 Antigen and Antibodies, Fourth Generation, with Reflexes (01/21/2025 10:34 AM EDT) HIV AB/AG Nonreactive Nonreactive [facility] Comment:HIV-1 p24 Ag and/or HIV-1/HIV-2 Ab not detected.A test result that is nonreactive does not exclude thepossibility of exposure to or infection with HIV-1 and/orHIV-2. Nonreactive results in this assay for individualswith prior exposure to HIV-1 and/or HIV-2 may be due toantigen and antibody levels that are below the limit ofdetection of this assay.The F[employer]ebillniUXPin HIV Ag/Ab Combo assay result andsupplemental assay results should be interpreted inconjunction with the patient's clinical presentation,history and other laboratory results. If the results areinconsistent with clinical evidence, additional testing issuggested to confirm the result. Blood Venous blood specimen / Unknown 01/21/2025 10:34 AM EDT 01/21/2025 2:05 PM EDT Hernan Aaron MD LAB BLOOD ORDERABL ES Final Result [facility] [address] [place], [place] [phone] * (ABNORMAL) POCT HGB A1C (01/21/2025 10:01 AM EDT) Hemoglobin A1C 8.7(A) 4.0 - 6.0 % QC Media Lot # [id number] Lot# Expiration Date ,026 Blood 01/21/2025 10:0 1 AM EDT Hernan [...] Most Recently Relevant to Health Maintenance Insurance [facility] (O D-SNP) [place] [id number] [facility] OPTIONS (O D-SNP) [place]ANE [id number] [facility] [address] [facility] [place] [id number] [address] [facility] [place] [id number] [address] [facility] [place] [phone] Care Teams Photo Technologist Relationship Specialty Start Date End Date Hernan Urbina MD [address] [place] [address] [place] [address] PCP - General Internal Medicine 01/21/25
== END 2025-03-22 09:39 | disposition home or self-care (01) ==
LOC: HO.MAMMO 09:38
PROVIDERS: PCP Internal Medicine; Visit Provider Internal Medicine
DX: Z12.31 Encounter for screening mammogram for malignant neoplasm of breast (principal)
CPT/HCPCS: 77063; 77067

== ENCOUNTER → 2025-03-22 09:45 | Outpatient (BNV) | payer OTHER, SELFPAY | PROVIDERS: PCP Internal Medicine; Visit Provider Internal Medicine | DX: Z12.31 Encounter for screening mammogram for malignant neoplasm of breast (principal) | CPT/HCPCS: 77063; 77067 ==

== ENCOUNTER 2025-03-31 13:16 | Outpatient (AMB) | payer OTHER, SELFPAY ==
--- OUTSIDE RECORDS SUMMARY | 2025-03-31 13:20 | XMS_ITS | Encounter Summary ---
Author Organization [employer] Address [address] [facility] [place] [address] Care Team Providers Care Rn Field Case Manager Name Role Phone Hernan Urbina MD Primary Care Prov ider Encounter Details Date Type Department Care Team (Late st Contact Info) Description 01/24/2025 Orders Only [facility] [address] [place], [place] [phone] Hernan Urbina MD [address] [place] [address] Social History Tobacco Use Types Packs/Day Years [...] Care Team (Late st Contact Info) Description 05/03/2025 2:00 PM EDT Office Visit [facility] [address] [place] [address] Domingo Spence documented as of this encounter Visit Diagnoses Not on filedocumented in this encounter Additional Health Concerns Assessment Noted Time PHQ-9 Depression Total Score: 2 12/21/19 8:57 AM EST documented as of this encounter Care Teams Rn Field Case Manager Relationship Specialty Start Date End Date Hernan Urbina MD [address] [place] [address] PCP - General Internal Medicine 01/21/25 documented as of this encounter
--- NOTE | 2025-03-31 13:29 | MHC.OFFVIS ---
Intake Visit Reasons: Cysto/ Stent Removal Intake Note: Patient is present for Cystoscopy/STENT REMOVAL Urology Medication:DAPAGLIFLOZIN,MIRABEGRON Antibiotic Allergy:ATORVASTATIN,BACTRIM Blood Thinner:APIXABAN Lot:[id number] Exp:03/11/27 Blood Coordinator Required: No Allergies atorvastatin [From LIPITOR] Adverse Reaction (Intermediate, Verified 03/31/25 13:32) STOMACH ACHE oxycodone [From OXYCONTIN] Adverse Reaction (Intermediate, Verified 03/31/25 13:32) SENSORY HALLUCINATIONS sulfamethoxazole [From Bactrim] Adverse Reaction (Intermediate, Verified 03/31/25 13:32) chills vitamin d Adverse Reaction (Intermediate, Uncoded 03/31/25 13:32) Hallucinations HPI Comments Details: Meena is a very pleasant patient. She is a patient of Dr. Rajput. 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 Denies nicotine dependence or workplace chemical exposure. 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 COUNTS INCLUDE 234 BEDS AT THE [facility] Medical History Bladder mass Metformin adverse reaction Urinary incontinence, mixed Oropharyngeal dysphagia COVID-19 vaccination refused Refused influenza vaccine Diabetes mellitus with hyperglycemia, without long-term current use of insulin Anxiety as acute reaction to gross stress Mild intermittent asthma in adult without complication OAB (overactive bladder) Diabetes mellitus with microalbuminuria, without long-term current use of insulin Osteoarthritis, knee History of depression Osteopenia after menopause Overweight Varicose veins of right lower extremity History of ST elevation myocardial infarction (STEMI) Coronary artery disease involving [place] coronary artery Hypertension Refused pneumococcal vaccination Dyslipidemia Surgical History History of section Hx of myomectomy S/P left rotator cuff repair History of heart artery stent Family History Father No problems noted. Mother No problems noted. Brother Diabetes mellitus Daughter Mental health disorder Son Mental health disorder Social History Housing: Apartment Alcohol intake: current Alcohol intake frequency: does not drink Patient Tobacco Use Status: Never used Tobacco e-Cigarette/Vaping Use: Never Used Second Hand Smoke Exposure: No service: No Current occupational status: disabled Current occupation: [employer] Current occupational exposures/hazards: No Cognitive needs: No Hearing needs: No Vision needs: Yes Female Reproductive History Menstrual Age of Menarche: 12 Review of Systems Const Denies chills and Denies fever(s) Card Reports no additional complaints and Denies syncope Resp Denies cough GI Denies abdominal pain and Denies heartburn Reports as per HPI and Denies change in libido Neuro Denies syncope Psych Denies change in libido Endo Denies change in libido Physical Exam Const General: cooperative, healthy appearing, comfortable and no acute distress Orientation/consciousness: patient oriented x3 HEENT Face and sinus: Yes normal facial exam Mouth: moist mucous membranes Neck Neck: Yes normal visual inspection, Yes full ROM and Yes trachea midline Chest Chest palpation & inspection: normal inspection of the chest Resp Effort & Inspection: normal respiratory effort, able to speak in complete sentences and no respiratory distress GI Inspection: Yes normal to inspection Back/Spine/Pelvis Cervical Spine: normal cervical lordosis Thoracic/Lumbar Spine: thoracic and lumbar spine normal to inspection Skin General skin exam: no rashes or lesions noted Neuro General: patient oriented x3, gait normal, tone normal and moves all extremities Extrem General: Yes normal to inspection and Yes capillary refill normal Office Procedures Cystoscopy Consent Discussed risk and benefit or proposed procedure with the patient. Information consent for procedure given to the patient. Discussed technical aspects, risks, benefits and alternatives in full. Addressed all of the patient's questions and concerns regarding the procedure. The patient demonstrated knowledge and understanding. They wish to proceed with this procedure. Preparation The patient was prepped in the usual manner. A content production specialist was present and in the room. Genitalia was prepped with betadine solution in a sterile manner. Lidocaine Jelly 2% was placed into the urethra and 16Fr flexible Olympus cystoscope was inserted into the meatus after adequate lubrication. Procedure A well lubricated 16 [place] cystoscope was placed No abnormality noted of urethra during placement Indwelling stent seen within bladder emerging from left ureteric orifices The stent was grasped with a 3 prong grasper and removed without difficulty The patient tolerated the procedure well [id number] with stent removal DISPOSABLE SCOPE URO-G FLEXIBLE SCOPE Procedure code (CPT) selection complete Office Meds lidocaine HCl 2 % mucosal jelly in applicator Performing Provider: Jean Busch MD [place] [facility] [facility] Administered by: Jean Busch MD on 03/31/25 14:12 Dose Route Admin Location Dispensed Lot Number Expiration Date [facility] [place] Used Car Lot Porter 10 mL intra-urethral 10 mL Results AMB Urinalysis, Automated UA Leukoctes 0 Lianne/uL Last Edit by Kendall Wakefield on 03/31/25 14:08 UA Nitrite Negative Last Edit by Kendall Wakefield on 03/31/25 14:08 UA Urobilinogen 3.5 mg/dL Last Edit by Kendall Wakefield on 03/31/25 14:08 UA Protein 0 mg/dL Last Edit by Kendall Wakefield on 03/31/25 14:08 UA pH 5.0 Last Edit by Kendall Wakefield on 03/31/25 14:08 UA Blood 25 Cb/uL Last Edit by Kendall Wakefield on 03/31/25 14:08 UA Specific Ruth 1.005 Last Edit by Kendall Wakefield on 03/31/25 14:08 UA Ketone Negative Last Edit by Kendall Wakefield on 03/31/25 14:08 UA Bilirubin 0 mg/dL Last Edit by Kendall Wakefield on 03/31/25 14:08 UA Glucose 60 mg/dL Last Edit by Kendall Wakefield on 03/31/25 14:08 Results Reviewed Results Reviewed: Laboratory Last Values Urine pH (Auto) 5.0 03/31/25 13:58 Specific Ruth (Auto) 1.005 03/31/25 13:58 Urine Protein (Auto) 0 mg/dL 03/31/25 13:58 Glucose (UA)(Auto) 60 mg/dL 03/31/25 13:58 Urine Ketones (Auto) Negative 03/31/25 13:58 Urine Blood (Auto) 25 Cb/uL 03/31/25 13:58 Urine Nitrite (Auto) Negative 03/31/25 13:58 Urine Bilirubin (Auto) 0 mg/dL 03/31/25 13:58 Urine Urobilinogen (Auto) 3.5 mg/dL 03/31/25 13:58 Leukocyte Esterase (Auto) 0 Lianne/uL 03/31/25 13:58 Assessment & Plan Assessment & Plan (1) Bladder cancer: Comment: Superficial high-grade Code(s): C67.9 - Malignant neoplasm of bladder, unspecified Category: Medical Plan complete bladder immunotherapy induction Three-month follow-up check cystoscopy office Orders: Orders AMB Urinalysis Automated Today Z13.9 - Encounter for screening, unspecified AMB Cystoscopy Today C67.9 - Malignant neoplasm of bladder, unspecified Patient Instructions: This note is constructed using voice recognition software. While every effort has been made to ensure accuracy site monitor errors may have been included. Imaging studies, laboratory and physical exam results were discussed and reviewed in detail. No major barriers to patient understanding were identified. An opportunity to ask questions regarding the treatment plan was provided. All questions were answered. The patient expressed understanding and agreement with the above treatment plan. The patient is aware they should contact our office by phone for worsening of their current condition or the appearance of new urologic symptoms. Compliance is encouraged with any medications and followup testing that is ordered. It is a privilege to participate in the urologic care of your patient. If you have any questions or concerns regarding treatment for the above conditions, or other urologic issues, please do not hesitate to contact me. The office telephone contact is [phone]. Sincerely, Dr Jean Busch MD, [facility] - Urology Compassionate Specialist Care for the Genitourinary System Coding Level of Care Code Est Pt Level 3 (29913) Complex EM visit Add On G2211 Diagnoses Bladder cancer C67.9 CPT Codes Cystoscopy - CPT: 13191-Philceebaz with stent removal ([id number])
== END 2025-03-31 14:17 | disposition home or self-care (01) ==
LOC: HO.HUSH 13:17
PROVIDERS: PCP Internal Medicine; Visit Provider Urology
DX: C67.9 Malignant neoplasm of bladder, unspecified (principal); Z96.0 Presence of urogenital implants; Z13.9 Encounter for screening, unspecified
CPT/HCPCS: 52310

== ENCOUNTER 2025-03-31 13:16 | Outpatient (REF) | payer OTHER, SELFPAY | END 2025-03-31 13:17 | disposition home or self-care (01) | LOC: HO.LAB 13:16 | PROVIDERS: PCP Internal Medicine; Visit Provider Urology | DX: Z46.6 Encounter for fitting and adjustment of urinary device (principal); C67.9 Malignant neoplasm of bladder, unspecified | CPT/HCPCS: 52310; 81003 ==

== ENCOUNTER 2025-04-07 13:18 | Outpatient (AMB) | payer OTHER, SELFPAY ==
[2025-04-07 13:31] VITALS: BMI 26.1
--- NOTE | 2025-04-07 13:31 | MHC.AMNUTRGE ---
VS Expanded 04/07/25 13:31 Height 4 ft 11 in Weight 129 lb 3.054 oz BMI 26.1 Intake Visit Reasons: T2DM Allergies atorvastatin (From LIPITOR) Adverse Reaction (Intermediate, Verified 03/31/25 13:32) STOMACH ACHE oxycodone (From OXYCONTIN) Adverse Reaction (Intermediate, Verified 03/31/25 13:32) SENSORY HALLUCINATIONS sulfamethoxazole (From Bactrim) Adverse Reaction (Intermediate, Verified 03/31/25 13:32) chills vitamin d Adverse Reaction (Intermediate, Uncoded 03/31/25 13:32) Hallucinations Nutrition Presentation Details: Pt presents for MNT f/u for T2DM Pt reports following up with Dr. Becerra at [facility], new PCP Pt reports doing well, did not bring glucometer to this appointment Pt reports reducing on portion sizes in the evening. denies GI symptoms physical activity : activities of daily living food frequency fruits: 0-1/d veg: daily 1-2 /day and also tries different veg smoothies with almond milk /diet sugar and sometimes fruits dairy: 3/day and non dairy alternatives nuts/seeds: includes 2-3x/wk starches : reports including variety, whole grains fried foods: reports using airfyer, baking, fried foods limits to 1x/wk (starhces mainly fish: 1/wk beverages: water, light juices, smoothies, milk (dairy and non dairy), coconut water, diet beverages , 24-36 oz/d BS Monitoring Most Recent Diabetes Results: Creatinine, (0.5-1.4) 0.78 mg/dL 02/09/25 BUN, (9-16) 25 mg/dL H 02/09/25 Sodium, (135-145) 140 mmol/L 02/09/25 Potassium, (3.3-5.1) 4.4 mmol/L 02/09/25 Chloride, (96-108) 104 mmol/L 02/09/25 Carbon Dioxide, (22-29) 29 mmol/L 02/09/25 Calcium, (8.4-10.2) 10.1 mg/dL 02/09/25 AST, (5-31) 23 U/L 02/09/25 ALT, (0-31) 22 U/L 02/09/25 Total Protein, (6.5-8.0) 7.7 g/dL 02/09/25 Albumin, (3.5-5.0) 4.5 g/dL 02/09/25 [facility] [place] Medical History Bladder mass Metformin adverse reaction Urinary incontinence, mixed Oropharyngeal dysphagia COVID-19 vaccination refused Refused influenza vaccine Diabetes mellitus with hyperglycemia, without long-term current use of insulin Anxiety as acute reaction to gross stress Mild intermittent asthma in adult without complication OAB (overactive bladder) Diabetes mellitus with microalbuminuria, without long-term current use of insulin Osteoarthritis, knee History of depression Osteopenia after menopause Overweight Varicose veins of right lower extremity History of ST elevation myocardial infarction (STEMI) Coronary artery disease involving [place] coronary artery Hypertension Refused pneumococcal vaccination Dyslipidemia Surgical History History of section Hx of myomectomy S/P left rotator cuff repair History of heart artery stent Family History Father No problems noted. Mother No problems noted. 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 Current occupational exposures/hazards: No Cognitive needs: No Hearing needs: No Vision needs: Yes Female Reproductive History Menstrual Age of Menarche: 12 Assessment & Plan Assessment & Plan (1) Diabetes mellitus with microalbuminuria, without long-term current use of insulin: Code(s): E11.29 - Type 2 diabetes mellitus with other diabetic kidney complication; R80.9 - Proteinuria, unspecified Category: Medical Plan Review choosing nutrient dense foods, and fiber rich foods Used wt : (62.7 kg on 10/2023), 60 kg (04/2024), 60 kg ( 07/27) , 58.6 kg(04/27) Est kcal needs as per MSJ: 2026-1273 est protein needs as per 1.0 g/kg bw: 60 g/d est fluid needs as per 25 ml/kg bw: 1700 ml/d Rec fiber: inc gradually as tolerated > 18 g/day , up to 25 g/d, Rec Na: <2000 mg/d Recommend fiber intake : 8-10 g per day and gradually increase to 25g per day as tolerated Recommend sodium intake per day : less than 2000 mg Educated patient on: ( R = reviewed V = verbalizes understanding N/R = needs review N/A = not applicable Food sources of carbohydrate, adequate serving sizes and its role in various health conditions: R V Differences between complex carbohydrates a simple carbohydrates, role of fiber in diet: R V Differences between types of fats and role in diet (mono on saturated fat fatty acids, saturated fatty acids, trans fats): R ,V Food sources of sodium in salt and healthy modifications for heart health in kidney health: R, V Healthy plate method concept: R V Physical activity: Benefits a precaution: R V Dietary prevention of Hyperglycemia: R V monitoring blood sugar for self assessment: R,V Patient Instructions: Choose low fat food choices : reduce on saturated fats (fried/prefried foods, highly processed foods see 1500 yane meal plan Mediterranean diet concept Keep hydrated by having water with meals/snacks keep physically active , goal 150 min per week or as tolerated take medications as recommended by your doctor. Coding Level of Care Code Nutr Indiv Subseq (90374) Diagnoses Diabetes mellitus with microalbuminuria, without long-term current use of insulin E11.29; R80.9 Time Spent (min) 30
--- OUTSIDE RECORDS SUMMARY | 2025-04-07 15:39 | XMS_ITS | Encounter Summary ---
Author Organization [employer] Address [address] [place] [address] Care Team Providers Care Cardiovascular Physician Assistant Name Role Phone Hernan Urbina MD Primary Care Prov ider Encounter Details Date Type Department Care Team (Late st Contact Info) Description 01/24/2025 Orders Only [facility] [address] [place], [place] [id number] Hernan Urbina MD [address] [place] [address] Social History Tobacco Use Types Packs/Day Years [...] Care Team (Late st Contact Info) Description 04/27/2025 10:15 AM EDT Telemedicine [facility] MED [facility] PED[facility] [address] [place] [address] Hernan Urbina MD [address] [place] [address] 05/03/2025 2:00 PM EDT Office Visit [facility] ADULT DENTAL [address] [place] [address] Domingo Spence documented as of this encounter Visit Diagnoses Not on filedocumented in this encounter Additional Health Concerns Assessment Noted Time PHQ-9 Depression Total Score: 2 12/21/19 8:57 AM EST documented as of this encounter Care Teams Cardiovascular Physician Assistant Relationship Specialty Start Date End Date Hernan Urbina MD [address] [place] [address] PCP - General Internal Medicine 01/21/25 documented as of this encounter
== END 2025-04-07 14:54 | disposition home or self-care (01) ==
LOC: HO.ENCR 13:19
PROVIDERS: PCP Internal Medicine; Visit Provider Dietitian, Registered
DX: E11.29 Type 2 diabetes mellitus with other diabetic kidney complication (principal); R80.9 Proteinuria, unspecified

== ENCOUNTER → 2025-04-07 13:18 | Outpatient (BNVA) | payer OTHER, SELFPAY | PROVIDERS: PCP Internal Medicine; Visit Provider Dietitian, Registered | DX: E11.29 Type 2 diabetes mellitus with other diabetic kidney complication (principal); R80.9 Proteinuria, unspecified; E66.3 Overweight; Z68.26 Body mass index [BMI] 26.0-26.9, adult; Z71.3 Dietary counseling and surveillance | CPT/HCPCS: 97803 ==

== ENCOUNTER 2025-05-06 14:41 | Emergency (ER) | payer OTHER, SELFPAY ==
--- NOTE | ~2025-05-06 | XR_ITS ---
CLINICAL HISTORY: pain s p fall Three views of the right shoulder. COMPARISON: None provided. FINDINGS: Proximal right humerus, the right scapula, and the right clavicle appear intact. Humeral head is appropriately seated in the glenoid. Prominent osteophytes present along the inferior aspect of the glenoid. Moderate hypertrophy of the right acromioclavicular joint. Visualized portions of the right lung are clear. IMPRESSION: 1. No radiographic evidence of acute injury to the right shoulder. 2. 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 This document has been electronically signed by: Carlos Suarez MD on 05/06/2025 16:10:15
--- NOTE | ~2025-05-06 | CT_ITS ---
CLINICAL HISTORY: fall, +head strike, on AC CT cervical spine without contrast. COMPARISON: None provided. FINDINGS: Straightening of the normal cervical lordosis. Leftward curvature of the lower cervical and upper thoracic spine. Vertebral body heights are maintained. Nuchal ligament ossification present. No evidence of acute injury to the cervical spine. Skull base and intracranial structures appear normal. Calcified plaque present at the carotid bulbs bilaterally. C2-C3: Prominent anterior marginal osteophytes. No significant neural foraminal narrowing. C3-C4: Prominent anterior marginal osteophytes with fusion of the vertebral bodies anteriorly. 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 No significant neural foraminal narrowing. C4-C5: Prominent anterior marginal osteophytes with fusion of the vertebral bodies anteriorly. 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 Mild bilateral neural foraminal narrowing. C5-C6: Prominent anterior marginal osteophytes. Posterior disc osteophyte complex. Uncovertebral joint hypertrophy. Severe left and mild right neural foraminal narrowing. C6-C7: Anterior marginal osteophytes with fusion of the vertebral bodies anteriorly. Mild bilateral neural foraminal narrowing. IMPRESSION: 1. No evidence of acute injury to the cervical spine. 2. Straightening of the normal cervical lordosis. 3. Advanced multilevel cervical spondylosis. This document has been electronically signed by: Carlos Suarez MD on 05/06/2025 16:53:23
--- NOTE | ~2025-05-06 | CT_ITS ---
CLINICAL HISTORY: fall, +head strike, on AC CT head without contrast. COMPARISON: None provided. FINDINGS: The visualized paranasal sinuses are clear. The mastoid air cells are clear. No calvarial fracture. Atherosclerotic intracranial vasculature. No evidence for mass or mass effect. No intracranial hemorrhage or abnormal extra-axial fluid collection. Basal ganglia mineralization present on the right. No evidence of hydrocephalus. The basilar cisterns are patent. There are periventricular areas of low attenuation compatible with mild white matter small vessel disease. Posterior fossa appears unremarkable. IMPRESSION: 1. No acute intracranial findings. This document has been electronically signed by: Carlos Suarez MD on 05/06/2025 16:51:59
--- NOTE | ~2025-05-06 | XR_ITS ---
CLINICAL HISTORY: pain s p fall Three views of the right elbow. COMPARISON: None provided. FINDINGS: Soft tissue swelling overlying the posterior aspect of the upper right forearm. No elbow joint effusion. Anterior humeral and radiocapitellar lines are maintained. Visualized portions of the humerus, radius and ulna appear intact. Prominent enthesophyte present along the medial humeral condyle. IMPRESSION: 1. No radiographic evidence of acute injury to the right elbow. 2. Soft tissue swelling overlying the posterior aspect of the upper right forearm. No radiopaque foreign body. This document has been electronically signed by: Carlos Suarez MD on 05/06/2025 16:09:02
--- NOTE | 2025-05-06 14:50 | ED_ITS ---
HPI - Fall General Chief Complaint: Fall Stated Complaint: fall, shoulder pain Time Seen by Provider: 05/06/25 15:22 Source: patient Mode of arrival: ambulatory Limitations: no limitations History of Present Illness ED Provider: Michelle Wallace PA-C HPI Narrative: Patient is a 70 year old assigned female at with a history of bladder cancer, lumbago, asthma, DM, HTN, PAF on anticoags, and CAD presenting to the emergency department today with right sided shoulder pain, right sided elbow pain, and a headache after a fall. Patient states that she had a trip and fall onto the right side. Patient denies any loss of consciousness. Patient denies any dizziness, lightheadedness, abdominal pain, nausea, vomiting, fever, chills, blurry vision, double vision, loss of vision, chest pain, difficulty breathing, shortness of breath, back pain, night sweats, pain with urination, increased urinary frequency, increased urinary urgency, blood in her urine or stool, syncope or a near syncopal episode, bowel incontinence, bladder incontinence, or any other complaints at this time. Related Data Home Medications ?Medication ?Instructions ?Recorded ?Confirmed lancets 28 gauge (FreeStyle #100 ea 08/03/20 01/10/25 Lancets) metoprolol succinate 200 mg 200 mg PO DAILY 06/26/21 0 01/10/25 tablet,extended release 24 hr nitroglycerin 0.4 mg sublingual 0 mg sublingual 01/10/25 tablet multivitamin 1 tab PO DAILY 10/07/2301/01 artificial drp ophthalmic (eye) 4 01/10/25 tears(gmoppfz-asomqzeg-maztnei) 0.1 %-0.3 %-0.2 % eye drops celecoxib 100 mg capsule (Celebrex) 100 mg PO DAILY NV N 10/15/24 01/10/25 Previous Rx's ?Medication ?Instructions ?Recorded blood sugar diagnostic (FreeStyle 1 strip miscellaneou s BID for 06/18/22 Lite Strips) diabetes mellitus #100 strip s rosuvastatin 5 mg tablet 5 mg PO DAILY #30 tabs 04/29 fluticasone propionate 110 1 puff inhalation Q12H #12 grams 12/11/23 mcg/actuation HFA aerosol inhaler lisinopril 5 mg tablet 5 mg PO DAILY #90 tabs 02/26 docusate sodium 100 mg capsule 100 mg PO DAILY #90 cap s 07/13/24 albuterol sulfate 90 mcg/actuation 2 puff inhalation Q 6H PRN 08/27/24 aerosol inhaler shortness of breath or wheez ing #8.5 grams acetaminophen 500 mg tablet 500 mg PO Q6H PRN fever or pain 09/06/24 (Tylenol Extra Strength) #14 tabs cyclobenzaprine 5 mg tablet 5 mg PO BID PRN pain (scal e score 09/10/24 7-10) #30 tabs dapagliflozin propanediol 10 mg 10 mg PO QAM #90 tabs 10/15/24 tablet (Farxiga) repaglinide 2 mg tablet 2 mg PO TID #90 tabs 4 lorazepam 1 mg tablet (Ativan) 1 mg PO ONCE anxiety #1 tab 11/11/24 ezetimibe 10 mg tablet 10 mg PO DAILY #90 tabs 12/04 01/25 sitagliptin phosphate 100 mg 100 mg PO DAILY #30 tabs 02/15/25 tablet (Januvia) hydroxyzine HCl 10 mg tablet 10 mg PO .qd PRN hives #3 0 tabs 02/16/25 mirabegron 25 mg tablet,extended 25 mg PO DAILY #30 ta bs 02/16/25 release 24 hr (Myrbetriq) apixaban 5 mg tablet (Eliquis) 5 mg PO BID #180 tabs 0 03/03/25 dapagliflozin propanediol 10 mg 10 mg PO DAILY #90 tab s 03/03/25 tablet (Farxiga) Allergies Allergy/AdvReac Type Severity Reaction Status Date / Time atorvastatin (From LIPITOR) AdvReac Intermediate STOMACH Verified 05/06/25 14:57 ACHE oxycodone (From OXYCONTIN) AdvReac Intermediate SENSORY Verified 05/06/25 14:57 HALLUCINATIONS sulfamethoxazole (From AdvReac Intermediate chills Verified 05/06/25 14:57 Bactrim) vitamin d AdvReac Intermediate Hallucinati Uncoded 05/06/25 14:57 ons Review of Systems Constitutional: Constitutional: Reports no additional constitutional complaints, Denies chills, Denies fever(s), Reports headache(s) and Denies night sweats Eyes: Eyes: Reports no additional eye complaints, Denies blurry vision, Denies change in vision, Denies diplopia, Denies eye discharge, Denies loss of vision and Denies eye pain ENT: Denies dizziness and Reports headache(s) Cardiovascular: Cardiovascular: Reports no additional cardiovascular complaints, Denies chest pain, Denies lightheadedness, Denies Loss of Consciousness and Denies dyspnea Respiratory: Respiratory: Reports no additional respiratory complaints and Denies dyspnea Gastrointestinal: Gastrointestinal: Reports no additional gastrointestinal complaints, Denies abdominal pain, Denies melena, Denies hematochezia, Denies change in bowel habits and Denies change in stool character Genitourinary: Genitourinary: Denies hematuria, Denies urinary frequency, Denies dysuria, Denies urinary incontinence, Denies urinary hesitancy and Denies urinary urgency Musculoskeletal: Musculoskeletal: Reports no additional musculoskeletal complaints, Denies numbness and Denies tingling Comments: right elbow pain right shoulder pain Neurologic: Denies dizziness, Reports headache(s), Denies loss of vision, Denies numbness and Denies tingling Psychiatric: Psychiatric: Reports no additional psychiatric complaints Endocrine: Endocrine: Reports no additional endocrine complaints Hematologic/Lymphatic: Hematologic/Lymphatic: Reports no additional hematologic/lymphatic complaints Allergic/Immunologic: Allergic/Immunologic: Reports no additional allergic/immunologic complaints [facility] Past Medical History Attestation statement: The following information was validated with the patient. Source: old records reviewed and nursing notes reviewed Medical History Bladder mass Metformin adverse reaction Urinary incontinence, mixed Oropharyngeal dysphagia COVID-19 vaccination refused Refused influenza vaccine Diabetes mellitus with hyperglycemia, without long-term current use of insulin Anxiety as acute reaction to gross stress Mild intermittent asthma in adult without complication OAB (overactive bladder) Diabetes mellitus with microalbuminuria, without long-term current use of insulin Osteoarthritis, knee History of depression Osteopenia after menopause Overweight Varicose veins of right lower extremity History of ST elevation myocardial infarction (STEMI) Coronary artery disease involving ambler coronary artery Hypertension Refused pneumococcal vaccination Dyslipidemia Surgical History History of section Hx of myomectomy S/P left rotator cuff repair History of heart artery stent Family History Family History Father No problems noted. Mother No problems noted. 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 Current occupational exposures/hazards: No Cognitive needs: No Hearing needs: No Vision needs: Yes Physical Exam Vital Signs: Vital Signs: Last Vital Signs Temp 97.1 F 05/06/25 14:53 Pulse 75 05/06/25 14:53 Resp 18 05/06/25 14:53 BP 153/67 H 05/06/25 14:53 Pulse Ox 97 05/06/25 14:53 O2 Del Method Room Air 05/06/25 14:53 BMI result Body Mass Index 26.4 Const: General: cooperative, no acute distress, alert and awake Nutritional Appearance: well nourished Orientation/consciousness: patient oriented x3 HEENT: Head: Yes normal to inspection and Yes atraumatic Ears: hearing grossly normal bilaterally and external ears normal General nose exam: Normal external nose present, no nasal discharge noted and no epistaxis Face and sinus: Yes normal facial exam, No abrasion and No laceration Mouth: Normal oral and palatal mucosa present, no drooling and no muffled voice Eyes: General: appearance normal, both eyes and all related structures Periorbital: periorbital findings normal Eyelids: Yes eyelids normal Conjunctivae: conjunctivae normal Pupils: Equal, round and reactive pupils present EOM: EOMs intact bilaterally Neck: Neck: Yes normal visual inspection, Yes full ROM and Yes no lymphadenopathy Resp: Effort & Inspection: normal respiratory effort and able to speak in complete sentences Neuro: General: patient oriented x3, moves all extremities and CN's II-XI intact bilaterally Cranial nerves: Yes Equal, round and reactive pupils present Cognition (Neuro): normal cognition Extrem: General: Yes normal to inspection, Yes full ROM and Yes capillary refill normal Psych: Appearance: grossly normal Mental Status: mental status grossly normal Affect: normal affect Attitude: cooperative Thought process: Normal thought process present Thought content: Normal thought content present Insight: Good insight present (Psych) Course Course Course Narrative: This is an RME: Additional HPI, ROS, PE not included below will be deferred to primary provider. RME assessment and note performed by: Karla Gannno PA-C This is a 70 year old female with a PMHx bladder cancer, mixed urinary incontinence, asthma, DM, CAD, HTN, HLD, and paroxysmal afib on eliquis presenting to the ED with concerns of headache, right shoulder and right elbow pain. Reports her sandal twisted and this caused her to fall to the ground. She was picked up by a male individual after being on the ground for 30 minutes. She struck the right side of her head on a wall. No LOC. Reporting right shoulder pain and elbow. She Plan: CT head, ct cervical spine, xr shoulder, xr elbow Medical Decision Making Medical Decision Making MDM Narrative: Patient is a 70 year old assigned female at with a history of bladder cancer, lumbago, asthma, DM, HTN, PAF on anticoags, and CAD presenting to the emergency department today with right sided shoulder pain, right sided elbow pain, and a headache after a fall. Patient's physical exam was unremarkable. Patient's right shoulder and elbow x-rays showed no acute process. Patient's CT head and c-spine were unremarkable. I explained my physical exam findings as well as all test results to the patient. I answered all questions asked by the patient. Patient requested to be given morphine - she was given 1 dose while in the department. I stressed the importance of the patient taking her medication as directed (either prescribed or as the over the counter packaging recommends). I stressed the importance of the patient following up with her primary care provider. I stressed the importance of the patient returning to the emergency department immediately if her symptoms were to worsen or if she were to develop any dizziness, shortness of breath, difficulty breathing, chest pain, blurry vision, loss of vision, nausea, vomiting, abdominal pain, fever, chills, back pain, or any other complaints. Patient verbalized agreement and understanding with this treatment plan and discharge. Differential Diagnosis Differential Diagnoses: The differential diagnosis associated with the presentation includes Right shoulder pain Right elbow pain Fall Headache Admission/Observation Consideration of admission/observation: Escalation of care including admission/observation considered Patient would have been admitted to the hospital had her work up had any findings where hospital admission was appropriate and her clinical presentation warranted hospital admission. Independent Interpretation I performed an independent interpretation of an: Plain X-Ray and CT Scan Interpretation: My interpretation is in agreement with the radiologist's impression of these imaging studies. Report Number: [id number]: Total DLP = 358.78 mGy-cm CLINICAL HISTORY: fall, +head strike, on AC CT cervical spine without contrast. COMPARISON: None provided. FINDINGS: Straightening of the normal cervical lordosis. Leftward curvature of the lower cervical and upper thoracic spine. Vertebral body heights are maintained. Nuchal ligament ossification present. No evidence of acute injury to the cervical spine. Skull base and intracranial structures appear normal. Calcified plaque present at the carotid bulbs bilaterally. C2-C3: Prominent anterior marginal osteophytes. No significant neural foraminal narrowing. C3-C4: Prominent anterior marginal osteophytes with fusion of the vertebral bodies anteriorly. 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 No significant neural foraminal narrowing. C4-C5: Prominent anterior marginal osteophytes with fusion of the vertebral bodies anteriorly. 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 Mild bilateral neural foraminal narrowing. C5-C6: Prominent anterior marginal osteophytes. Posterior disc osteophyte complex. Uncovertebral joint hypertrophy. Severe left and mild right neural foraminal narrowing. C6-C7: Anterior marginal osteophytes with fusion of the vertebral bodies anteriorly. Mild bilateral neural foraminal narrowing. IMPRESSION: 1. No evidence of acute injury to the cervical spine. 2. Straightening of the normal cervical lordosis. 3. Advanced multilevel cervical spondylosis. This document has been electronically signed by: Carlos Suarez MD on 05/06/2025 16:53:23 Dictated By: Carlos Suarez MD Signed By: Electronically signed by Carlos Suarez MD 05/06/25 6314 Report Number: [id number]: Total DLP = 643.76 mGy-cm CLINICAL HISTORY: fall, +head strike, on AC CT head without contrast. COMPARISON: None provided. FINDINGS: The visualized paranasal sinuses are clear. The mastoid air cells are clear. No calvarial fracture. Atherosclerotic intracranial vasculature. No evidence for mass or mass effect. No intracranial hemorrhage or abnormal extra-axial fluid collection. Basal ganglia mineralization present on the right. No evidence of hydrocephalus. The basilar cisterns are patent. There are periventricular areas of low attenuation compatible with mild white matter small vessel disease. Posterior fossa appears unremarkable. IMPRESSION: 1. No acute intracranial findings. This document has been electronically signed by: Carlos Suarez MD on 05/06/2025 16:51:59 Dictated By: Carlos Suarez MD Signed By: Electronically signed by Carlos Suarez MD 05/06/25 1653 CLINICAL HISTORY: pain s p fall Three views of the right shoulder. COMPARISON: None provided. FINDINGS: Proximal right humerus, the right scapula, and the right clavicle appear intact. Humeral head is appropriately seated in the glenoid. Prominent osteophytes present along the inferior aspect of the glenoid. Moderate hypertrophy of the right acromioclavicular joint. Visualized portions of the right lung are clear. IMPRESSION: 1. No radiographic evidence of acute injury to the right shoulder. 2. 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 This document has been electronically signed by: Carlos Suarez MD on 05/06/2025 16:10:15 Dictated By: Carlos Suarez MD Signed By: Electronically signed by Carlos Suarez MD 05/06/25 1611 CLINICAL HISTORY: pain s p fall Three views of the right elbow. COMPARISON: None provided. FINDINGS: Soft tissue swelling overlying the posterior aspect of the upper right forearm. No elbow joint effusion. Anterior humeral and radiocapitellar lines are maintained. Visualized portions of the humerus, radius and ulna appear intact. Prominent enthesophyte present along the medial humeral condyle. IMPRESSION: 1. No radiographic evidence of acute injury to the right elbow. 2. Soft tissue swelling overlying the posterior aspect of the upper right forearm. No radiopaque foreign body. This document has been electronically signed by: Carlos Suarez MD on 05/06/2025 16:09:02 Dictated By: Carlos Suarez MD Signed By: Electronically signed by Carlos Suarez MD 05/06/25 5217 Radiology Impression Discussion of test interpretation with radiology: I have reviewed the radiologist's reading. Discharge Plan Discharge Clinical Impression: Fall, Elbow pain, Acute shoulder pain Patient Disposition: Home, Self-Care Instructions: Fall Prevention (ED), Shoulder Pain (ED), Arm Pain (ED) Additional Instructions: Follow up with your primary care provider. Return to the emergency department immediately if your symptoms worsen or if you develop any numbness, tingling, dizziness, shortness of breath, difficulty breathing, chest pain, blurry vision, loss of vision, nausea, vomiting, abdominal pain, fever, chills, back pain, or any other complaints. Please see the information below about our Patient Portal. If you are not yet enrolled in the [facility] Patient Portal, you will receive an enrollment email invitation following your visit to any [facility] care setting. You may also self-enroll in the Patient Portal by visiting our website: [email or web address] The following information is required to access the Patient Portal: - Your [facility] Medical Record Number - Your personal home email address (must match what is in your electronic medical record, Registration staff can assist with this) - Name - Date of Capabilities of the Patient Portal: - Message some providers - View upcoming appointments - Access your health summary, medical history, and visit history - View current conditions and allergies - View procedure and lab results - View your medications, including guidelines, side effects, and precautions - Complete pre-appointment questionnaires requested by your provider - Ready summary reports of your office visits and procedures To access the Patient Portal Mobile Susy, follow these directions: - Search [employer] in the Susy Store or [employer] Store - Download the Susy - Search for [facility] - Enter your login/password Prescriptions: No Action FreeStyle Lite Strips Strip 1 strip miscellaneous BID Qty: 100 0RF fluticasone propionate 110 mcg/actuation HFA aerosol inhaler 1 puff inhalation Q12H Qty: 12 1RF Rx Instructions: rinse and gargle mouth after use lisinopril 5 mg tablet 5 mg PO DAILY Qty: 90 0RF docusate sodium 100 mg capsule 100 mg PO DAILY Qty: 90 1RF ezetimibe 10 mg tablet 10 mg PO DAILY Qty: 90 1RF Januvia 100 mg tablet 100 mg PO DAILY Qty: 30 2RF mirabegron [Myrbetriq] 25 mg tablet extended release 24 hr 25 mg PO DAILY Qty: 30 1RF hydroxyzine HCl 10 mg tablet 10 mg PO .qd PRN (Reason: hives) Qty: 30 1RF acetaminophen [Tylenol Extra Strength] 500 mg tablet 500 mg PO Q6H PRN (Reason: fever or pain) Qty: 14 0RF albuterol sulfate 90 mcg/actuation HFA aerosol inhaler 2 puff inhalation Q6H PRN (Reason: shortness of breath or wheezing) Qty: 8.5 0RF nitroglycerin 0.4 mg tablet, sublingual 0 mg sublingual (DME) lancets [FreeStyle Lancets] 28 gauge misc See Rx Instructions .ROUTE .MEDSUPPLY Qty: 100 Rx Instructions: As directed rosuvastatin 5 mg tablet 5 mg PO DAILY Qty: 30 5RF metoprolol succinate 200 mg tablet extended release 24 hr 200 mg PO DAILY multivitamin Tablet 1 tab PO DAILY cyclobenzaprine 5 mg tablet 5 mg PO BID PRN (Reason: pain (scale score 7-10)) Qty: 30 0RF lorazepam [Ativan] 1 mg tablet 1 mg PO ONCE Qty: 1 0RF Rx Instructions: Take 30 minutes prior to arrival to procedure celecoxib [Celebrex] 100 mg capsule 100 mg PO DAILY PRN repaglinide 2 mg tablet 2 mg PO TID Qty: 90 1RF Rx Instructions: administer within 30 minutes of a meal or snack Farxiga 10 mg tablet 10 mg PO QAM Qty: 90 1RF Eliquis 5 mg tablet 5 mg PO BID Qty: 180 0RF dapagliflozin propanediol [Farxiga] 10 mg tablet 10 mg PO DAILY Qty: 90 0RF artificial tear(byvjf-alf-mwr) 0.1-0.3-0.2 % drops ophthalmic (eye) Referrals: Hernan Urbina MD [Primary Care Provider, Medical] Print Language: Uzbek
[2025-05-06 14:53] VITALS: BP 153/67; PULSE 75; RESP 18; TEMP 36.2; O2SAT 97; BMI 26.4
--- NOTE | 2025-05-06 17:15 | PC.NURSE ---
pt opted to get morphine IM and to wait here for [address] home, medicated for r shoulder and elbow pain, alert
[2025-05-06 17:49] VITALS: BP 179/79; PULSE 79; RESP 20; TEMP 36.7; O2SAT 97
[2025-05-06 18:42] VITALS: BP 179/79; PULSE 79; RESP 20; TEMP 36.7; O2SAT 97
== END 2025-05-06 18:43 | disposition home or self-care (01) ==
PROVIDERS: Emergency Provider Emergency Medicine Emergency Medical Services; PCP Internal Medicine
DX: S49.91XA Unspecified injury of right shoulder and upper arm, initial encounter (principal); S59.901A Unspecified injury of right elbow, initial encounter; M25.521 Pain in right elbow; R51.9 Headache, unspecified; M54.2 Cervicalgia; I48.91 Unspecified atrial fibrillation; E11.9 Type 2 diabetes mellitus without complications; I25.10 Atherosclerotic heart disease of native coronary artery without angina pectoris; I10 Essential (primary) hypertension; X58.XXXA Exposure to other specified factors, initial encounter; Y93.9 Activity, unspecified; Y92.9 Unspecified place or not applicable; Y99.8 Other external cause status; Z79.899 Other long term (current) drug therapy; Z79.01 Long term (current) use of anticoagulants
CPT/HCPCS: 70450; 72125; 73030; 73070; 96372; 99284; J2270

== ENCOUNTER → 2025-05-06 14:56 | Outpatient (BNV) | payer OTHER, SELFPAY | PROVIDERS: Emergency Provider Emergency Medicine Emergency Medical Services; PCP Internal Medicine; Visit Provider Radiology Diagnostic Radiology | DX: M47.812 Spondylosis without myelopathy or radiculopathy, cervical region (principal); S09.90XA Unspecified injury of head, initial encounter; W19.XXXA Unspecified fall, initial encounter; M19.011 Primary osteoarthritis, right shoulder; R22.31 Localized swelling, mass and lump, right upper limb | CPT/HCPCS: 70450; 72125; 73030; 73070 ==

== ENCOUNTER 2025-06-30 00:29 | Emergency (ER) | payer OTHER, SELFPAY ==
--- OUTSIDE RECORDS SUMMARY | 2024-11-19 08:30 | XMS_ITS ---
Author Organization [facility] Address [address] [place] [address] Care Team Providers Care Study Specialist Name Role Phone Hernan Wasserman Primary Care Provider Unavailable Kathrine Cheema Unavailable [phone] REASON FOR VISIT r/s for sooner apt Encounters Encounter Location Date Provider Diagnosis [facility] [address] [place] [address] 11/19/2024 Kathrine Cheema Plan Of Treatment Next Appt Details Provider Name:Kathrine armando, 07/05/2025 03:15:00 PM, [address] [place], [address], Progress Notes * Judie TOLLIVERB:[birth year] (70 yo F)Acc No.[id number]:11/19/2024 Progress Note Patient: Lucien MCCONNELLTabby Meena Provider: Gretchen Cheema DPM :1955 A ge:69 Y S ex:Female Date:11/19/2024 Address:[address] [place] [address], [address], [id number] Pcp:Hernan wu Subjective: * Chief Complaints: * [...] 0 11/19/2024 Generated for Osmar Carr/Bridgett on: 0 06/30/2025 02:08 AM EDT
--- NOTE | ~2025-06-30 | CT_ITS ---
CLINICAL HISTORY: Hematuria; Hx Bladder CA; Increasing Pain CT abdomen and pelvis with contrast Comparison: CT/ME/SR - CT ABDOMEN PELVIS UROGRAPHY WITHOUT THEN WITH IV CONTRAST - 01/28/25 09:13 EDT Findings: No consolidation or effusion. The gallbladder and solid organs are within normal limits. No renal stones. No bowel obstruction, pneumoperitoneum, or pneumatosis. Sigmoid diverticulosis without evidence of diverticulitis. Urinary bladder underdistended, limiting evaluation. No obvious mass seen. Uterine fundal exophytic fibroid. Bilateral adnexae unremarkable. Normal appendix. The bones are intact. IMPRESSION: No acute findings. This document has been electronically signed by: Woo Payne MD on 06/30/2025 04:39:53
[2025-06-30 00:39] VITALS: BP 197/90; PULSE 85; RESP 16; TEMP 36.1; O2SAT 97; BMI 25.6
[2025-06-30 00:53] LABS: MANUAL DIFF FLAG NO
[2025-06-30 00:54] LABS: Hematocrit 39.1 % (37.0-47.0); Hemoglobin 13.2 g/dl (12.0-16.0); Imm Gran Abs Auto 0.01 X10*3/uL (0.00-0.03); Imm Gran Pct Auto 0.2 % (0.0-0.4); Lymphocytes Absolute Auto 1.9 X10*3/uL (1.2-4.9); Mean Corpuscular HGB Conc 33.8 g/dl (31.0-35.0); Mean Corpuscular Hemoglobin 30.5 pg (27.0-33.0); Mean Corpuscular Volume 90.3 fL (80.0-98.0); NRBC Abs Auto 0.000 X10*3/uL (0.0-0.012); NRBC Pct Auto 0.0 /100WBC (0.0-0.2); Platelet Count 213 X10*3/uL (160-400); Red Blood Count 4.33 X10*6/uL (4.20-5.50); White Blood Count 5.8 X10*3/uL (4.8-10.8)
[2025-06-30 01:15] LABS: Alanine Aminotransferase 24 U/L (0-31); Albumin Level 4.5 g/dL (3.5-5.0); Alkaline Phosphatase 91 U/L (39-117); Anion Gap 15 (12-20); Aspartate Amino Transferase 24 U/L (5-31); Blood Urea Nitrogen 27 mg/dL (9-16); Calcium 10.0 mg/dL (8.4-10.2); Carbon Dioxide 28 mmol/L (22-29); Chloride 99 mmol/L (96-108); Creatinine Clr Calc Pharmacy 50.7; Estimated Glomerular Filt Rate > 60; Lipase 30 U/L (8-78); Potassium 4.6 mmol/L (3.3-5.1); Sodium 137 mmol/L (135-145); Total Protein 7.3 g/dL (6.5-8.0)
--- OUTSIDE RECORDS SUMMARY | 2025-06-30 02:09 | XMS_ITS | Encounter Summary ---
Author Organization [employer] Address [address] [facility] [address] 7t [place] [address] Care Team Providers Care Systems Software Specialist Name Role Phone Hernan Urbina MD Primary Care Prov ider Smitha Salas PharmD Unavailable [phone] Reason for Visit * Reason Comments Med Refill Encounter Details Date Type Department Care Team (Late st Contact Info) Description 05/09/2025 Refill [facility] MEDICINE [address] [place] [address] Hernan Urbina MD [address] [place], [place] [phone] Social History Tobacco Use Types Packs/Day Years [...] Care Team (Late st Contact Info) Description 07/08/2025 2:00 PM EDT Medication Management [facility] MED & PEDS 505 [place] [address] Smitha Salas PharmD 230 [place] [address] 11/04/2025 2:00 PM EST Office Visit [facility] ADULT DENTAL 505 [place] [address] Domingo Spence documented as of this encounter Visit Diagnoses Not on filedocumented in this encounter Additional Health Concerns Assessment Noted Time PHQ-9 Depression Total Score: 2 12/21/19 25 8:57 AM EST documented as of this encounter Care Teams Systems Software Specialist Relationship Specialty Start Date End Date Hernan Urbina MD [address] [place] [address] PCP - General Internal Medicine 01/21/25 Smitha Salas PharmD 230 [place] [address] Pharmacist Pharmacy 06/09/25 documented as of this encounter
--- OUTSIDE RECORDS SUMMARY | 2025-06-30 02:09 | XMS_ITS | Encounter Summary ---
Author Organization [facility] Address [address] [place] [address] 7 [place] [address] Care Team Providers Care Mixing Supervisor Name Role Phone Hernan Urbina MD Primary Care Prov ider Smitha Salas PharmD Unavailable [phone] Encounter Details Date Type Department Care Team (Late Contact Info) Description 11/01/2022 Abstract [facility] ADULT DENTAL [address] [place] [address] Thompson Cobb DDS [address] [place] [address] Social History Tobacco Use Types Packs/Day Years [...] Department Care Team (Late Contact Info) Description 07/08/2025 2:00 PM EDT Medication Management [facility] MED & PEDS [address] [place] [address] Smitha Salas, PharmD 230 [place] [address] 11/04/2025 2:00 PM EST Office Visit [facility] ADULT DENTAL [address] [place] [address] Domingo Spence documented as of this encounter Visit Diagnoses Not on filedocumented in this encounter Care Teams Mixing Supervisor Relationship Specialty Start Date End Date Hernan Urbina MD 505 [place] [address] PCP - General Internal Medicine 01/21/25 Smitha Salas PharmD 230 [place] [address] Pharmacist Pharmacy 06/09/25 documented as of this encounter
--- OUTSIDE RECORDS SUMMARY | 2025-06-30 02:09 | XMS_ITS | Encounter Summary ---
Author Organization [employer] Address [address] [facility] 7t [place] [address] Care Team Providers Care Fire Alarm Operator Name Role Phone Hernan Urbina MD Primary Care Prov ider Smitha Salas PharmD Unavailable [phone] Reason for Referral * Consultation (Routine) - Canceled Specialty Diagnoses / Procedures Referred By Contac t Referred To Contact Pharmacy Diagnoses Primary hypertension Hernan Urbina MD [address] [place] [address] Phone: tel: fax: Referral ID Status Reason Start Date Expiration Date V isits Requested Visits Authorized [id number] Canceled Continuity of Care 05/17/2025 05/17/2026 6 6 Encounter Details Date Type Department Care Team ([facility] st Contact Info) Description 04/05/2025 Orders Only [facility] CHC MED & PEDS [address] [place], [place] [phone] Hernan Urbina MD [address] [place], [place] [phone] Primary hypertension (Primary Dx) Social History Tobacco Use Types Packs/Day Years [...] Description 07/08/2025 2:00 PM EDT Medication Management [facility] MED & PEDS [address] [place] [address] Smitha Salas PharmD 230 [place] [address] 11/04/2025 2:00 PM EST Office Visit [facility] ADULT DENTAL [address] [place] [address] Domingo Spence Scheduled Referrals Name Type Priority Associated Diagnoses Orde r Schedule Referral to Pharmacy MTM Outpatient Referral Routine Primary hypertension Ordered: 05/17/2025 documented as of this encounter Visit Diagnoses Diagnosis Primary hypertension- Primary Unspecified essential hypertension documented in this encounter Additional Health Concerns Assessment Noted Time PHQ-9 Depression Total Score: 2 12/21/19 25 8:57 AM EST documented as of this encounter Care Teams Fire Alarm Operator Relationship Specialty Start Date End Date Hernan Urbina MD [address] [place] [address] PCP - General Internal Medicine 01/21/25 Smitha Salas PharmD 230 [place] [address] Pharmacist Pharmacy 06/09/25 documented as of this encounter
--- OUTSIDE RECORDS SUMMARY | 2025-06-30 02:09 | XMS_ITS | Encounter Summary ---
Author Organization [employer] Address [address] [facility] [address] 7t [place] [address] Care Team Providers Care Senior Qa Automation Engineer Name Role Phone Hernan Urbina MD Primary Care Prov ider Smitha Salas PharmD Unavailable [phone] Reason for Visit * Reason Onset Date Comments Appointment 05/20/2023 Encounter Details Date Type Department Care Team ([facility] st Contact Info) Description 05/20/2023 Telephone [facility] CHC ADULT DENTAL [address] [place] [address] Thompson Cobb DDS [address] [place] [address] Appointment Social History Tobacco Use Types Packs/Day [...] 07/08/2025 2:00 PM EDT Medication Management [facility] MED & PEDS [address] [place] [address] Smitha Salas PharmD [address] [place] [address] 11/04/2025 2:00 PM EST Office Visit [facility] ADULT DENTAL [address] [place] [address] Domingo Spence documented as of this encounter Visit Diagnoses Not on filedocumented in this encounter Care Teams Senior Qa Automation Engineer Relationship Specialty Start Date End Date Hernan Urbina MD 505 [place] [address] PCP - General Internal Medicine 01/21/25 Smitha Salas PharmD [address] [place] [address] Pharmacist Pharmacy 06/09/25 documented as of this encounter
--- OUTSIDE RECORDS SUMMARY | 2025-06-30 02:09 | XMS_ITS | Patient Health Record ---
Author Organization [facility] Address [address] [facility] [place] [address] Care Team Providers Care Tire Spotter Name Role Phone Hernan Wasserman Primary Care Provider Unavailable Kathirne Cheema Unavailable [phone] Allergies Allergen (clinical drug ingredient) Drug/Non Drug [...] Duration) Notes Start Date End Date Status Lisinopril 40 MG Oral; Duration: 90 Days Active CeleBREX Not-Taking Flovent HFA 110 MCG/ACT Inhalation; Dura tion: 60 Not-Taking Extra Depth Orthopedic Shoes (1 Pair) with Customized Heat Molded Multidensity Innersoles (3 Pair) as directed Dx: NIDDM/Polyneuropathy (E11.42), Hammertoe Foot Deformity (M20.41,M20.42), Preulcerative Skin Lesion(s) (L85.1 Not-Taking Gabapentin Not-Takin g Vitamin D3 2000 UNIT 1 capsule Orally On ce a day; Duration: 30 day(s) Not-Taking Rosuvastatin Calcium 40 MG 1 tablet Oral ly Once a day; Duration: 30 day(s) Active Brilinta 90 MG 1 tablet Orally Twic e a day; Duration: 30 day(s) Not-Taking Metoprolol Succinate ER 50 MG 1 tablet Orally Once a day; Duration: 30 day(s) Active Cyclobenzaprine HCl 10 MG 1 tablet as ne eded Orally Three times a day Not-Taking Extra Depth Orthopedic Shoes (1 Pair) with Customized Heat Molded Multidensity Innersoles (3 Pair) as directed Dx: NIDDM/Polyneuropathy (E11.42), Hammertoe Foot Deformity (M20.41,M20.42), Preulcerative Skin Lesion(s) (L85.1 01/15/2022 Not-Taking Ammonium Lactate 12 % 1 application to affected area Externally to feet Twice a day; Duration: 30 days Not-Taking Lisinopril Not-Takin g Ammonium Lactate 12 % 1 application to affected area Externally to feet Twice a day; Duration: 30 days Active Extra Depth Orthopedic Shoes (1 Pair) with Customized Heat Molded Multidensity Innersoles (3 Pair) as directed Dx: NIDDM/Polyneuropathy (E11.42), Hammertoe Foot Deformity (M20.41,M20.42), Preulcerative Skin Lesion(s) (L85.1 Active Farxiga 10 MG 1 tablet Orally Once a day; Duration: 30 day(s) Active Acetaminophen 325 MG 1 tablet as needed Orally every 4 hrs Not-Taking Eliquis 5 MG as directed Orally Active Methylprednisolone N ot-Taking Extra Depth Orthopedic Shoes (1 Pair) with Customized Heat Molded Multidensity Innersoles (3 Pair) as directed Dx: NIDDM/Polyneuropathy (E11.42), Hammertoe Foot Deformity (M20.41,M20.42), Preulcerative Skin Lesion(s) (L85.1 07/23/2019 Active Arthritis Pain PRN Activ e Repaglinide 2 MG TAKE ONE TABLET BY MOUTH THREE TIMES DAILY 30 MINUTES BEFORE A MEAL OR SNACK Oral; Duration: 30 Active hydrOXYzine HCl 10 MG Oral; Duration: 30 Active Feldene 20 MG 1 capsule with food Orally Once a day as needed. Do NOt take any additional NSAIDs such as Motrin or Ibuprofen with this medication; Duration: 30 day(s) 01/07/2024 Active Extra Depth Orthopedic Shoes (1 Pair) with Customized Heat Molded Multidensity Innersoles (3 Pair) as directed Dx: NIDDM/Polyneuropathy (E11.42), Hammertoe Foot Deformity (M20.41,M20.42), Preulcerative Skin Lesion(s) (L85.1 04/23/2023 Active Januvia 100 MG Oral; Duration: 30 Active Immunizations Vaccine Route Administration Date Status Comme nts Influenza Unknown 08/25/2020 Refused Influenza Unknown 04/23/2023 Refused COVID-19 [employer] Bradford/Elliot Unknown 04/12/2021 A dministered Social History Tobacco Use: Social History Observation [...] Problem Acquired hammer toe of right foot (9695469792631298 ) Other hammer toe(s) (acquired), right foot (M20.41) Active confirmed Problem Acquired hammer toe of left foot (5465141692820605 ) Other hammer toe(s) (acquired), left foot (M20.42) Active confirmed Problem Neuropathy (622077083) Neuropathy (G62.9) Active confirmed Problem Polyneuropathy due to type 2 diabetes mellitus (024107576) Type 2 diabetes mellitus with polyneuropathy (E11.42) Active confirmed Problem Localized, primary osteoarthritis of the ankle and/or foot (323058562) 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) Active confirmed Vital Signs Blood pressure diastolic 77 mm Hg 04/05/2025 Height [id number] in 04/05/2025 Blood pressure systolic 130 mm Hg 04/05/2025 Weight 135 lbs 04/05/2025 BMI 27.26 kg/m2 04/05/2025 Encounters Encounter Location Date Provider Diagnosis [facility] [address] [place] [address] 11/16/2024 Kathrine Cheema Type 2 diabetes mellitus with polyneuropathy E11.42 ; Other hammer toe(s) (acquired), right foot M20.41 and Other hammer toe(s) (acquired), left foot M20.[address] [address] 01/25/2025 Kathrine Anette Type 2 diabetes mellitus with polyneuropathy E11.[address] [address] 04/05/2025 Kathrine Anette Type 2 diabetes mellitus with polyneuropathy E11.42 ; Other hammer toe(s) (acquired), right foot M20.41 and Other hammer toe(s) (acquired), left foot M20.[address] [address] 09/07/2024 Kathrine Kangprabha [address] [address] 09/07/2024 Kathrine Kangprabha [address] [address] 05/25/2025 Kathrineterell Cheema Assessments Encounter Date Diagnosis (ICD Code) Assessment Notes Treatment Notes Treatment Clinical Notes Section Notes 11/16/2024 Type 2 diabetes mellitus with polyneuropathy (ICD-10 - E11.42) 01/25/2025 Type 2 diabetes mellitus with polyneuropathy (ICD-10 - E11.42) 04/05/2025 Type 2 diabetes mellitus with polyneuropathy (ICD-10 - E11.42) 04/05/2025 Other hammer toe(s) (acquired), right foot (ICD-10 - M20.41) Patient Educated with: DIABETIC FOOT CARE INSTRUCTIONS. pdf (DIABETIC FOOT CARE INSTRUCTIONS. pdf) 11/16/2024 Other hammer toe(s) (acquired), right foot (ICD-10 - M20.41) Patient Educated with: DIABETIC FOOT CARE INSTRUCTIONS. pdf (DIABETIC FOOT CARE INSTRUCTIONS. pdf) 11/16/2024 Other hammer toe(s) (acquired), left foot (ICD-10 - M20.42) 04/05/2025 Other hammer toe(s) (acquired), left foot (ICD-10 - M20.42) 01/25/2025 Other Plan Of Treatment Pending Test Test Name Order Date X ray : Foot, left 3V 07/23/2019 X ray : Ankle, right 3V 11/05/2023 Next Appt Details Provider Name:Kathrine Armando Jorge Luis armando, 07/05/2025 03:15:00 PM, [address] [place], [address], Insurance Providers Payer Name Payer Address Payer Phone Subscriber Number Group Number Insured Name Patient Relationship to Insured Coverage Start Date Coverage End Date [facility] [employer] Claims [address] [place]ríg[place] [id number] [phone] [id number] Meena Hidaglo Self - patient is the insured Medical (General) History Medical History History ICD Code type 2 diabetes depression/anxiety hyperlipidemia psychophysiological insomnia osteopenia adnexal mass HTN asthma [place] 02/24/19 fatty liver uterine fibroid Arthritis Back,Hip,and [...]
--- OUTSIDE RECORDS SUMMARY | 2025-06-30 02:09 | XMS_ITS | Encounter Summary ---
Author Organization [employer] Address [address] [facility] 7t [place] [address] Care Team Providers Care Vending Machine Refiller Name Role Phone Hernan Urbina MD Primary Care Prov ider Smitha Salas PharmD Unavailable [phone] Reason for Visit * Reason Onset Date Comments Med Refill 05/31/2025 Encounter Details Date Type Department [facility] Description 05/31/2025 Telephone [facility] CHC MED & PEDS [address] [place] [address] Hernan Urbina MD [address] [place] [address] Med Refill Social History Tobacco Use Types Packs/Day Years [...] encounter Miscellaneous Notes * Telephone Encounter - Kacey Franz LPN - 05/31/2025 3:32 PM EDT Patient needs to call and confirm she is switching to [facility]. * Telephone Encounter - Cassie Lyles - 05/31/2025 3:27 PM EDT TC [facility] requesting medication refill. Medications needing refill : dapagliflozin (Farxiga) 10 MG fluticasone (Flovent HFA) 110 MCG/ACT inhaler Ventolin HFA 108 (90 Base) MCG/ACT inhaler glucose blood (FREESTYLE LITE) test strip Lancets To be sent to: [facility] [place] [place] - [address] [place] [address] documented in this encounter Plan of Treatment Upcoming Encounters Date Type Department Care Team (Late st Contact Info) Description 07/08/2025 2:00 PM EDT Medication Management [facility] MED & PEDS [address] [place] [address] Smitha Salas, PharmD [address] [place], [place] [phone] 11/04/2025 2:00 PM EST Office Visit [facility] CHC ADULT DENTAL [address] [place] [address] Domingo Spence documented as of this encounter Visit Diagnoses Not on filedocumented in this encounter Additional Health Concerns Assessment Noted Time PHQ-9 Depression Total Score: 2 12/21/19 25 8:57 AM EST documented as of this encounter Care Teams Vending Machine Refiller Relationship Specialty Start Date End Date Hernan Urbina MD [address] [place] [address] PCP - General Internal Medicine 01/21/25 Smitha Salas, JessD [address] [place] [address] Pharmacist Pharmacy 06/09/25 documented as of this encounter
--- OUTSIDE RECORDS SUMMARY | 2025-06-30 02:09 | XMS_ITS | Encounter Summary ---
Author Organization [employer] [facility] Address [address] [facility] 7 [place] [address] Care Team Providers Care Tool Lapper Hand Name Role Phone Hernan Urbina MD Primary Care Prov ider Smitha Salas PharmD Unavailable [phone] Encounter Details Date Type Department Care Team (Latest Contact Info) Description 02/02/2021 Abstract [facility] CONVERSIONS Dental, Provider, DDS Social [...] Description 07/08/2025 2:00 PM EDT Medication Management [facility] MED & PEDS [address] [place], [place] [phone] Smitha Salas, PharmD 230 [place] [address] 11/04/2025 2:00 PM EST Office Visit [facility] ADULT DENTAL [address] [place], [place] [phone] Domingo Spence documented as of this encounter Visit Diagnoses Not on filedocumented in this encounter Care Teams Tool Lapper Hand Relationship Specialty Start Date End Date Hernan Urbina MD [address] [place], [place] PCP - General Internal Medicine 01/21/25 Smitha Salas, JessD 230 [place] [address] Pharmacist Pharmacy 06/09/25 documented as of this encounter
--- OUTSIDE RECORDS SUMMARY | 2025-06-30 02:09 | XMS_ITS | Encounter Summary ---
Author Organization [employer] Address [address] [facility] [address] 7[address] [place] [address] Care Team Providers Care Car Designer Name Role Phone Hernan Urbina MD Primary Care Prov ider Smitha Salas PharmD Unavailable [phone] Encounter Details Date Type Department Care Team (Late st Contact Info) Description 01/24/2025 Orders Only [facility] CHC MED & PEDS 505 [place] [address] Hernan Urbina MD [address] [place] [address] Social History Tobacco Use Types Packs/Day Years [...] Description 07/08/2025 2:00 PM EDT Medication Management [facility] MED & PEDS [address] [place] [address] Smitha Salas PharmD 230 [place] [address] 11/04/2025 2:00 PM EST Office Visit [facility] ADULT DENTAL [address] [place] [address] Domingo Spence documented as of this encounter Visit Diagnoses Not on filedocumented in this encounter Additional Health Concerns Assessment Noted Time PHQ-9 Depression Total Score: 2 12/21/19 25 8:57 AM EST documented as of this encounter Care Teams Car Designer Relationship Specialty Start Date End Date Hernan Urbina MD [address] [place] [address] PCP - General Internal Medicine 01/21/25 Smitha Salas PharmD 230 [place] [address] Pharmacist Pharmacy 06/09/25 documented as of this encounter
--- OUTSIDE RECORDS SUMMARY | 2025-06-30 02:09 | XMS_ITS | Encounter Summary ---
Author Organization [employer] [facility] Address [address] [facility] 7 [place] [address] Care Team Providers Care Ship Wirer Name Role Phone Hernan Urbina MD Primary Care Prov ider Smitha Salas PharmD Unavailable [phone] Encounter Details Date Type Department Care Team (Latest Contact Info) Description 04/15/2022 Abstract [facility] CONVERSIONS Dental, Provider, [...] [facility] MED & PEDS [address] [place], [place] [phone] Smitha Salas, PharmD [address] [place] [address] 11/04/2025 2:00 PM EST Office Visit [facility] ADULT DENTAL [address] [place], [place] [phone] Domingo Spence documented as of this encounter Visit Diagnoses Not on filedocumented in this encounter Care Teams Ship Wirer Relationship Specialty Start Date End Date Hernan Urbina MD [address] [place], [place] PCP - General Internal Medicine 01/21/25 Smitha Salas, JessD [address] [place] [address] Pharmacist Pharmacy 06/09/25 documented as of this encounter
--- OUTSIDE RECORDS SUMMARY | 2025-06-30 02:09 | XMS_ITS | Encounter Summary ---
Author Organization [employer] [facility] Address [address] [place] [address] 7 [place] [address] Care Team Providers Care Airline Lounge Receptionist Name Role Phone Hernan Urbina MD Primary Care Prov ider Smitha Salas PharmD Unavailable [phone] Reason for Visit * Reason Comments Med Refill Encounter Details Date Type Department Care Team ([facility] Contact Info) Description 09/12/2023 Refill [facility] MED & PEDS [address] [place] [address] Christopher Spence MD [address] [place] [address] Social History Tobacco Use Types Packs/Day Years [...] Upcoming Encounters Date Type Department Care Team ([facility] Contact Info) Description 07/08/2025 2:00 PM EDT Medication Management [facility] MED & PEDS [address] [place] [address] Smitha Salas, PharmD 230 [place] [address] 11/04/2025 2:00 PM EST Office Visit [facility] ADULT DENTAL [address] [place] [address] Domingo Spence documented as of this encounter Visit Diagnoses Not on filedocumented in this encounter Care Teams Airline Lounge Receptionist Relationship Specialty Start Date End Date Hernan Urbina MD [address] [place] [address] PCP - General Internal Medicine 01/21/25 Smitha Salas PharmD [address] [place] [address] Pharmacist Pharmacy 06/09/25 documented as of this encounter
--- OUTSIDE RECORDS SUMMARY | 2025-06-30 02:09 | XMS_ITS | Encounter Summary ---
Author Organization [facility] Address [address] [facility] 7 [place] [address] Care Team Providers Care Acquisitions Librarian Name Role Phone Hernan Urbina MD Primary Care Prov ider Smitha Salas PharmD Unavailable [phone] Encounter Details Date Type Department Care Team (Latest Contact Info) Description 04/14/2019 Abstract [facility] CONVERSIONS Dental, Provider, DDS Social History [...] Description 07/08/2025 2:00 PM EDT Medication Management [facility] MED & PEDS [address] [place], [place] [phone] Smitha Salas, PharmD [address] [place] [address] 11/04/2025 2:00 PM EST Office Visit [facility] ADULT DENTAL [address] [place] [address] Domingo Spence documented as of this encounter Visit Diagnoses Not on filedocumented in this encounter Care Teams Acquisitions Librarian Relationship Specialty Start Date End Date Hernan Urbina MD [address] [place], [place] PCP - General Internal Medicine 01/21/25 Smitha Salas, JessD [address] [place] [address] Pharmacist Pharmacy 06/09/25 documented as of this encounter
--- OUTSIDE RECORDS SUMMARY | 2025-06-30 02:09 | XMS_ITS | Clinical Summary ---
Author Organization [employer] Address [address] [place] [address] Care Team Providers Care Bundle Collector Name Role Phone Hernan Urbina MD Primary Care Prov ider Smitha Salas PharmD Unavailable [phone] Allergies Active Allergy Reactions Criticality Noted Date Comments Oxycodone 03/03/2017 Shrimp Extract 03/15/2016 Vitamin D (Calciferol) 12/21/2024 Medications glucose blood (FREESTYLE LITE) test strip 07/16/20 18 Active apixaban (Eliquis) 5 MG tablet Take 1 tablet by mouth every 12 (twelve) hours. Active metoprolol succinate XL (Toprol-XL) 200 MG 24 hr tablet Take 200 mg by mouth in the morning. 12/26/19 24 Active repaglinide (Prandin) 2 MG tablet Take 2 mg by mouth before breakfast, before lunch, and before evening meal. Active Ventolin HFA 108 (90 Base) MCG/ACT inhaler Inhale 1 puff every 4 (four) hours if needed. 08/27/20 24 Active lisinopril 40 MG tablet Take 1 tablet (40 mg) by mouth Once per day. 90 tablet 3 02/23/20 25 026 Active ezetimibe (Zetia) 10 MG tablet TAKE 1 TABLET BY MOUTH EVERY DAY 90 tablet 04/20/20 25 Active dapagliflozin (Farxiga) 10 MG TAKE 1 TABLET BY MOUTH EVERY MORNING 90 tablet 04/20/20 25 Active rosuvastatin (Crestor) 20 MG tablet Take 1 tablet (20 mg) by mouth Once per day. 90 tablet 3 04/27/20 25 026 Active estradiol (Estrace) 0.1 MG/GM vaginal cream Aplique ramos cantidad del tamao de un guisante en la uretra diariamente keysha 1 mes y luego 3 veces por semana entonces duespes de eso. 05/19/20 25 Active ammonium lactate (Amlactin) 12 % cream APPLY TO FEET TWICE DAILY 04/04/20 25 Active semaglutide (Rybelsus) 3 MG tablet Take 1 tablet (3 mg) by mouth before breakfast. 30 tablet 06/09/20 25 025 Active semaglutide (Rybelsus) 7 MG tablet Take 1 tablet (7 mg) by mouth before breakfast. 30 tablet 2 06/09/20 25 Active hydrOXYzine HCl (Atarax) 10 MG tablet TAKE ONE TABLET AT BEDTIME NEEDED FOR HIVES 30 tablet 06/10/20 25 Active fluticasone (Flovent HFA) 110 MCG/ACT inhaler Inhale 1 puff in the morning and at bedtime. 025 Discontinued(Shakir holguin refused) Dulaglutide (Trulicity) 1.5 MG/0.5ML solution auto-injector Indications:T ype 2 diabetes mellitus with diabetic peripheral angiopathy without gangrene, without long-term current use of insulin ([facility]) Inject 1.5 mg under the skin 1 (one) time per week. 2 mL 3 03/30/20 25 025 Discontinued(Shakir holguin refused) hydrOXYzine HCl (Atarax) 10 MG tablet TAKE ONE TABLET DAILY NEEDED FOR HIVES 30 tablet 05/17/20 25 025 Discontinued(Re order (will not trigger notification to Pharmacy)) mirabegron ER (Myrbetriq) 25 MG 24 hr tablet Take 25 mg by mouth. 12/13/19 25 025 Discontinued(Me d list cleanup (will not trigger notification to Pharmacy)) Active Problems Problem Noted Date Diagnosed Date Encounter for screening mamm ogram for malignant neoplasm of breast 01/21/2025 Assessment & Plan (01/21/2025 10:16 AM EDT): Patient wants to undergo mammogram test Encounter to establish care 12/21/2024 Assessment & Plan (12/21/2024 9:19 AM EST): Last pcp visit 1 year at [facility] ER: November due to vaginal bleeding, back pain [facility]: 6 years ago due to [place] s/p stent x2 Pmhx: DM, HTN, Cholesterol, [place] s/p stent x2, CHF, atrial fibrillation Pshx: [...] use of insulin 12/21/2024 Assessment & Plan (04/27/2025 1:17 PM EDT): Continue trulicity/farxiga, no episode of hypoglycemia, no changes will be made, keep low carb/no sugar diet, follow up in 3 months Assessment & Plan (03/31/2025 10:39 AM EDT): Not at target will increase trulicity to 1.5mg, keep low carb/no sugar diet, follow up in 1 month Assessment & Plan (01/21/2025 10:02 AM EDT): Uncontrolled, will add trulicity for cardiovascular benefits, encouraged low carb/no sugar diet, follow up in 1 month Assessment & Plan (12/21/2024 12:28 PM EST): On farxiga and januvia Primary hypertension 11/12/2017 Assessment & Plan (04/27/2025 1:16 PM EDT): Controlled, continue low sodium diet and exercise as tolerated, no changes will be made, new labs will be ordered Assessment & Plan (03/31/2025 10:38 AM EDT): Controlled, no changes will be made, continue low sodium diet and exercise as tolerated, keep bp log, target <130/80, follow up in 3 months Assessment & Plan (01/21/2025 10:11 AM EDT): Uncontrolled, will increase lisinopril to 20mg, keep low sodium diet and exercise as tolerated Encounters Date Type Department Care Team Description 06/20/2025 Telephone [facility] [address] [place] [address] Hernan Urbina MD Medication Question 06/10/2025 Refill [facility] [address] [place] [address] Smitha Salas, PharmD 06/09/2025 Travel 06/03/2025 Travel 05/31/2025 Telephone [facility] [address] [place] [address] Hernan Urbina MD Med Refill 05/25/2025 Telephone [facility] [address] [place] [address] Hernan Urbina MD 05/18/2025 Telephone [facility] [address] [place] [address] Hernan Urbina MD 05/16/2025 11:30 AM EDT Office Visit [facility] [address] [place] [address] Hernan Urbina MD Multiple joint pain (Primary Dx); Type 2 diabetes mellitus with diabetic peripheral angiopathy without gangrene, without long-term current use of insulin ([facility]) 05/16/2025 Orders Only [facility] [address] [place] [address] Hernan Urbina MD Type 2 diabetes mellitus with diabetic peripheral angiopathy without gangrene, without long-term current use of insulin ([facility]) (Primary Dx) 05/16/2025 Telephone [facility] [address] [place] [address] Smitha Salas PharmD 05/16/2025 Refill [facility] [address] [place] [address] Hernan Urbina MD 05/16/2025 Travel 05/10/2025 Travel 05/09/2025 Refill [facility] [address] [place] [address] Hernan Urbina MD 05/09/2025 Telephone [facility] [address] [place] [address] Hernan Urbina MD Nurse Triage 05/06/2025 Orders Only [facility] External Provider, [facility] 05/03/2025 2:00 PM EDT Office Visit [facility] [address] [place] [address] Domingo Spence Dental calculus (Primary Dx) 04/27/2025 10:15 AM EDT Telemedicine [facility] [address] [place] [address] Hernan Urbina MD Type 2 diabetes mellitus with diabetic peripheral angiopathy without gangrene, without long-term current use of insulin ([facility]) (Primary Dx); Primary hypertension 04/27/2025 Travel 04/26/2025 Telephone [facility] [address] [place] [address] Hernan Urbina MD chart prep 04/26/2025 Travel 04/20/2025 Travel 04/19/2025 Refill [facility] [address] [place] [address] Hernan Urbina MD 04/05/2025 Orders Only [facility] [address] [place] [address] Hernan Urbina MD Primary hypertension (Primary Dx) 03/30/2025 11:15 AM EDT Telemedicine [facility] [address] [place] [address] Hernan Urbina MD Primary hypertension (Primary Dx); Type 2 diabetes mellitus with diabetic peripheral angiopathy without gangrene, without long-term current use of insulin (CMS/HCC) from Last 3 Months Immunizations Immunization Administration Dates Next Due Elliot SARS-CoV-2 Vaccination 04/12/2021 MMR 11/15/2010,10/08/2010 Moderna Covid-19 Vaccine 12+ 11/20/2021 Tdap 05/30/2017 Zoster, live 05/30/2017 Family History Medical History Relation Name Comments [...] is your housing situation today? I have malcolmsunny gama 12/21/[address] you [...] Sign Reading Time Taken Comments Blood Pressure 162/68 06/09/2025 11:47 AM EDT no lisinopril this AM Pulse 72 06/09/2025 11:47 AM EDT Temperature 36.8 C (98.3 F) 05/16/2025 11:36 AM EDT Respiratory Rate 12 05/16/2025 11:3 6 AM EDT Oxygen Saturation 98% 05/16/2025 11: 36 AM EDT Inhaled Oxygen Concentration - - Weight 59 kg (130 lb) 05/16/2025 11:36 AM EDT Height 151 cm (4' 11.45 ) 05/16/2025 11 :36 AM EDT Body Mass Index 25.86 05/16/2025 11:36 AM EDT Plan of Treatment Upcoming Encounters Date Type Department Care Team (Late st Contact Info) Description 07/08/2025 2:00 PM EDT Medication Management [facility] [address] [place] [address] Smitha Salas, PharmD [address] [place] [address] 11/04/2025 2:00 PM EST Office Visit [facility] [address] [place] [address] Domingo Spence Health Maintenance Due Date Last Done Comments CT Colonography 1955 Colonoscopy 1955 Colorectal Cancer Screening 1955 FIT DNA/Cologuard 1955 FIT 1955 FOBT 1955 Sigmoidoscopy 1955 Eye Exam 01/31/1966 Hepatitis A Vaccines (1 of 2 - Risk 2-dose series) 01/31/1975 Pneumococcal Vaccine: 50+ Years (1 of 2 - PCV) 01/31/1975 Hepatitis B Vaccines (1 of 3 - Risk 3-dose series) 2016 RSV Patients and Patients Aged 60 years or older (1 - Risk 60-74 years 1-dose series) 2016 Zoster Vaccines (2 of 3) 07/25/2017 05/30/2017 COVID-19 Vaccine (3 - 2023- season) 2024 11/20/2021, 04/12/2021 Dental Oral Exam 02/12/2025 08/13/2024, 08/2024, 04/16/2023 Influenza Vaccine (#1) 2025 Dental X-Ray: Bitewings 08/14/2025 08/13/20, 06/17/2024, 04/16/2023 Diabetes: Hemoglobin A1C 08/16/2025 05/16/2025, 01/02 Dental Prophylaxis 11/04/2025 05/03/2025, 1 , 02/11/2024, Additional history exists Depression Screening 12/21/2025 12/21/2024, 12/21/19 SDOH Screening 12/21/2025 12/21/2024 Diabetes: Foot Exam 01/21/2026 01/21/2025, 01/21/2025, 01/21/2025, Additional history exists Diabetes: Urine Protein Screening 01/21/2026 01/21/2025 Lipid Panel 01/21/2026 01/21/2025 Tobacco Screening 03/04/2026 03/04/2025 Dental X-Ray: Full Mouth 04/26/2026 04/25/2023 Alcohol/Substance Use Screening 04/27/2026 04/27/2025 Mammogram 03/22/2027 03/22/2025, 01/02, 07/27/2018, Additional history exists DTaP/Tdap/Td Vaccines (2 - Td or Tdap) [...] Procedure Name Priority Date/Time Associated Diagnosis Comments POCT GLYCATED HEMOGLOBIN, TOTAL Routine 05/16/2025 11:44 AM EDT Type 2 diabetes mellitus with diabetic peripheral angiopathy without gangrene, without long-term current use of insulin ([facility]) POCT GLUCOSE Routine 05/16/2025 11:43 AM EDT Type 2 diabetes mellitus with diabetic peripheral angiopathy without gangrene, without long-term current use of insulin ([facility]) CT CERVICAL SPINE WO CONTRAST Routine 05/06/2025 4:[address] HEAD WO CONTRAST Routine 05/06/2025 4 :51 PM EDT XR SHOULDER 2+ VIEWS RIGHT Routine 05/06/2025 4:10 PM EDT XR ELBOW 1-2 VIEWS RIGHT Routine 05/06/2025 4:09 PM EDT CASE PRESENTATION, DETAILED AND EXTENSIVE TREATMENT PLANNING Routine 05/03/2025 2:00 PM EDT ORAL HYGIENE INSTRUCTIONS Routine 05/03/2025 2:00 PM EDT PROPHYLAXIS - ADULT Routine 05/03/2025 2 :00 PM EDT BI MAMMOGRAM SCREENING TOMOSYNTHESIS BILATERAL Routine 03/22/2025 9:45 AM EDT Encounter for screening mammogram for malignant neoplasm of breast ALBUMIN, RANDOM URINE W/CREATININE Routine 01/21/2025 10:40 AM EDT Type 2 diabetes mellitus with diabetic peripheral angiopathy without gangrene, without long-term current use of insulin ([facility]) LIPID PANEL, STANDARD Routine 01/21/2025 10:39 AM EDT Type 2 diabetes mellitus with diabetic peripheral angiopathy without gangrene, without long-term current use of insulin (CMS/HCC) HEPATITIS C AB W/REFL TO HCV RNA, QN, PCR Routine 01/21/2025 10:34 AM EDT Type 2 diabetes mellitus with diabetic peripheral angiopathy without gangrene, without long-term current use of insulin (CMS/HCC) BITEWINGS - 4 RADIOGRAPHIC IMAGES Routine 08/13/2024 8:00 AM EDT PERIODIC ORAL EVALUATION - ESTABLISHED PATIENT Routine 08/13/2024 8:00 AM EDT PANORAMIC RADIOGRAPHIC IMAGE Routine 04/25/2023 1:30 PM EDT from Last 3 Months or Most Recently Relevant to Health Maintenance Results * (ABNORMAL) POCT A1C (05/16/2025 11:44 AM EDT) Hemoglobin A1C 10.2(A) 4.0 - 5.7 % QC Media Lot # Comment:[id number] Lot# Expiration Date Comment:11/04/2026 Blood 05/16/2025 11:4 4 AM EDT Hernan Aaron MD POINT OF CARE TEST ENTER/EDIT ORDERABLES Final Result * (ABNORMAL) POCT glucose manually resulted (05/16/2025 11:43 AM EDT) Glucose Blood, POC 293(A) 60 - 200 mg/dL QC Media Lot # Comment:[id number] Lot# Expiration Date Comment:09/01/2025 Blood Capillary blood specimen / Unknown 05/16/2025 11:43 AM EDT Hernan Aaron MD POINT OF CARE TEST ENTER/EDIT ORDERABLES Final Result * CT Cervical Spine w/o Contrast (05/06/2025 4:53 PM EDT) Anatomical Region Laterality Modality Spine, C-spine Computed Tomogra phy 05/06/2025 4:53 PM EDT Narrative 05/06/2025 4:54 PM EDT [address] [address] [address] Scan Report Signed Patient: Meena Hidalgo MR#: [id number] 061 : 1955 Acct:[id number] Age/Sex: 70 / F ADM Date: 05/06/25 Loc: HO.ED Attending Dr: Ordering Physician: Karla Ramos Date of Service: 05/06/25 Procedure(s): CT cervical spine wo IV con Accession Number(s): [id number] cc: Hernan Urbina MD; Karla Ramos Report Number: [id number]: Total DLP = 358.78 mGy-cm CLINICAL HISTORY: fall, +head strike, on AC CT cervical spine without contrast. COMPARISON: None provided. FINDINGS: Straightening of the normal cervical lordosis. Leftward curvature of the lower cervical and upper thoracic spine. Vertebral body heights are maintained. Nuchal ligament ossification present. No evidence of acute injury to the cervical spine. Skull base and intracranial structures appear normal. Calcified plaque present at the carotid bulbs bilaterally. C2-C3: Prominent anterior marginal osteophytes. No significant neural foraminal narrowing. C3-C4: Prominent anterior marginal osteophytes with fusion of the vertebral bodies anteriorly. 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 No significant neural foraminal narrowing. C4-C5: Prominent anterior marginal osteophytes with fusion of the vertebral bodies anteriorly. 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 Mild bilateral neural foraminal narrowing. C5-C6: Prominent anterior marginal osteophytes. Posterior disc osteophyte complex. Uncovertebral joint hypertrophy. Severe left and mild right neural foraminal narrowing. C6-C7: Anterior marginal osteophytes with fusion of the vertebral bodies anteriorly. Mild bilateral neural foraminal narrowing. IMPRESSION: 1. No evidence of acute injury to the cervical spine. 2. Straightening of the normal cervical lordosis. 3. Advanced multilevel cervical spondylosis. This document has been electronically signed by: Carlos Suarez MD on 05/06/2025 16:53:23 Dictated By: Carlos Suarez MD Signed By: <Electronically signed by Carlos Suarez MD in OV> 05/06/254 DD/ 52 TD/TT: 05/06/251652 [employer] Operator: Procedure Note Donotuseinterpreter, Image - 05/06/[address] [address] [address] Scan Report Signed Patient: Tiffanie Hidalgo#: [id number] 061 : 6Acct:[id number] Age/Sex: 70 / FADM Date: 05/06/25 Loc: HO.ED Attending Dr: Ordering Physician: Karla Ramos Date of Service: 05/06/25 Procedure(s): CT cervical spine wo IV con Accession Number(s): [id number] cc: Hernan Urbina MD; Karla Ramos Report Number: [id number]: Total DLP = 358.78 mGy-cm CLINICAL HISTORY: fall, +head strike, on AC CT cervical spine without contrast. COMPARISON: None provided. FINDINGS: Straightening of the normal cervical lordosis. Leftward curvature of the lower cervical and upper thoracic spine. Vertebral body heights are maintained. Nuchal ligament ossification present. No evidence of acute injury to the cervical spine. Skull base and intracranial structures appear normal. Calcified plaque present at the carotid bulbs bilaterally. C2-C3: Prominent anterior marginal osteophytes. No significant neural foraminal narrowing. C3-C4: Prominent anterior marginal osteophytes with fusion of the vertebral bodies anteriorly. 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 No significant neural foraminal narrowing. C4-C5: Prominent anterior marginal osteophytes with fusion of the vertebral bodies anteriorly. 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 Mild bilateral neural foraminal narrowing. C5-C6: Prominent anterior marginal osteophytes. Posterior disc osteophyte complex. Uncovertebral joint hypertrophy. Severe left and mild right neural foraminal narrowing. C6-C7: Anterior marginal osteophytes with fusion of the vertebral bodies anteriorly. Mild bilateral neural foraminal narrowing. IMPRESSION: 1. No evidence of acute injury to the cervical spine. 2. Straightening of the normal cervical lordosis. 3. Advanced multilevel cervical spondylosis. This document has been electronically signed by: Carlos Suarez MD on 05/06/2025 16:53:23 Dictated By: Carlos Suarez MD Signed By: <Electronically signed by Carlos Suarez MD in OV> 05/06/254 DD/ 52 TD/TT: 05/06/251652 [employer] Operator: us [facility] External Provider IMG CT PROCEDURES Edited Result - Final * CT Head w/o Contrast (05/06/2025 4:51 PM EDT) Anatomical Region Laterality Modality Head, Neck Computed Tomogra phy 05/06/2025 4:51 PM EDT Narrative 05/06/2025 4:53 PM EDT [place] [address] CT Scan Report Signed Patient: Meena Hidalgo MR#: [id number] 061 : 1955 Acct:[id number] Age/Sex: 70 / F ADM Date: 05/06/25 Loc: HO.ED Attending Dr: Ordering Physician: Karla Ramos Date of Service: 05/06/25 Procedure(s): CT head/brain wo IV con Accession Number(s): [id number] cc: Hernan Urbina MD; Karla Ramos Report Number: [id number]: Total DLP = 643.76 mGy-cm CLINICAL HISTORY: fall, +head strike, on AC CT head without contrast. COMPARISON: None provided. FINDINGS: The visualized paranasal sinuses are clear. The mastoid air cells are clear. No calvarial fracture. Atherosclerotic intracranial vasculature. No evidence for mass or mass effect. No intracranial hemorrhage or abnormal extra-axial fluid collection. Basal ganglia mineralization present on the right. No evidence of hydrocephalus. The basilar cisterns are patent. There are periventricular areas of low attenuation compatible with mild white matter small vessel disease. Posterior fossa appears unremarkable. IMPRESSION: 1. No acute intracranial findings. This document has been electronically signed by: Carlos Suarez MD on 05/06/2025 16:51:59 Dictated By: Carlos Suarez MD Signed By: <Electronically signed by Carlos Suarez MD in OV> 05/06/251652 DD/ 50 TD/TT: 05/06/251650 [employer] Operator: Procedure Note Donotuseinterpreter, Image - 05/06/[address] [address] [address] Scan Report Signed Patient: Tiffanie Hidalgo#: [id number] 061 : 6Acct:[id number] Age/Sex: 70 / FADM Date: 05/06/25 Loc: HO.ED Attending Dr: Ordering Physician: Karla Ramos Date of Service: 05/06/25 Procedure(s): CT head/brain wo IV con Accession Number(s): [id number] cc: Hernan Urbina MD; Karla Ramos Report Number: [id number]: Total DLP = 643.76 mGy-cm CLINICAL HISTORY: fall, +head strike, on AC CT head without contrast. COMPARISON: None provided. FINDINGS: The visualized paranasal sinuses are clear. The mastoid air cells are clear. No calvarial fracture. Atherosclerotic intracranial vasculature. No evidence for mass or mass effect. No intracranial hemorrhage or abnormal extra-axial fluid collection. Basal ganglia mineralization present on the right. No evidence of hydrocephalus. The basilar cisterns are patent. There are periventricular areas of low attenuation compatible with mild white matter small vessel disease. Posterior fossa appears unremarkable. IMPRESSION: 1. No acute intracranial findings. This document has been electronically signed by: Carlos Suarez MD on 05/06/2025 16:51:59 Dictated By: Carlos Suarez MD Signed By: <Electronically signed by Carlos Suarez MD in OV> 05/06/251652 DD/ 50 TD/TT: 05/06/251650 [employer] Operator: [facility] External Provider IMG CT PROCEDURES Edited Result - Final * XR Shoulder 2+ Views Right (05/06/2025 4:10 PM EDT) Anatomical Region Laterality Modality Upper Extremities, Shoulder Right Radi ographic Imaging 05/06/2025 4:10 PM EDT Narrative 05/06/2025 4:11 PM EDT [address] [address] XRay Report Signed Patient: Meena Hidalgo MR#: [id number] 061 : 1955 Acct:[id number] Age/Sex: 70 / F ADM Date: 05/06/25 Loc: HO.ED Attending Dr: Ordering Physician: Karla Ramos Date of Service: 05/06/25 Procedure(s): XR shoulder RT min 2V Accession Number(s): [id number] cc: Hernan Urbina MD; Karla Ramos CLINICAL HISTORY: pain s p fall Three views of the right shoulder. COMPARISON: None provided. FINDINGS: Proximal right humerus, the right scapula, and the right clavicle appear intact. Humeral head is appropriately seated in the glenoid. Prominent osteophytes present along the inferior aspect of the glenoid. Moderate hypertrophy of the right acromioclavicular joint. Visualized portions of the right lung are clear. IMPRESSION: 1. No radiographic evidence of acute injury to the right shoulder. 2. 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 This document has been electronically signed by: Carlos Suarez MD on 05/06/2025 16:10:15 Dictated By: Carlos Suarez MD Signed By: <Electronically signed by Carlos Suarez MD in OV> 05/06/25 1611 DD/ 1610 TD/TT: 05/06/25 1610 [employer] Operator: Procedure Note Donotuseinterpreter, Image - 05/06/[address] [address] XRay Report Signed Patient: Ramin HidalgoR#: [id number] 061 : 1955cct:[id number] Age/Sex: 70 / FADM Date: 05/06/25 Loc: HO.ED Attending Dr: Ordering Physician: Karla Ramos Date of Service: 05/06/25 Procedure(s): XR shoulder RT min 2V Accession Number(s): [id number] cc: Hernan Urbina MD; Karla Ramos CLINICAL HISTORY: pain s p fall Three views of the right shoulder. COMPARISON: None provided. FINDINGS: Proximal right humerus, the right scapula, and the right clavicle appear intact. Humeral head is appropriately seated in the glenoid. Prominent osteophytes present along the inferior aspect of the glenoid. Moderate hypertrophy of the right acromioclavicular joint. Visualized portions of the right lung are clear. IMPRESSION: 1. No radiographic evidence of acute injury to the right shoulder. 2. 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 This document has been electronically signed by: Carlos Suarez MD on 05/06/2025 16:10:15 Dictated By: Carlos Suarez MD Signed By: <Electronically signed by Carlos Suarez MD in OV> 05/06/25 1611 DD/ 161 TD/TT: 05/06/25 161 [employer] Operator: [facility] External Provider IMG XR PROCEDURES Edited Result - Final * XR Elbow 1-2 Views Right (05/06/2025 4:09 PM EDT) Anatomical Region Laterality Modality Upper Extremities, Elbow Right Radiogr aphic Imaging 05/06/2025 4:09 PM EDT Narrative 05/06/2025 4:10 PM EDT [place] [address] XRay Report Signed Patient: Meena Hidalgo MR#: [id number] 061 : 1955 Acct:[id number] Age/Sex: 70 / F ADM Date: 05/06/25 Loc: HO.ED Attending Dr: Ordering Physician: Karla Ramos Date of Service: 05/06/25 Procedure(s): XR elbow RT 2V Accession Number(s): [id number] cc: Hernan Urbina MD; Karla Ramos CLINICAL HISTORY: pain s p fall Three views of the right elbow. COMPARISON: None provided. FINDINGS: Soft tissue swelling overlying the posterior aspect of the upper right forearm. No elbow joint effusion. Anterior humeral and radiocapitellar lines are maintained. Visualized portions of the humerus, radius and ulna appear intact. Prominent enthesophyte present along the medial humeral condyle. IMPRESSION: 1. No radiographic evidence of acute injury to the right elbow. 2. Soft tissue swelling overlying the posterior aspect of the upper right forearm. No radiopaque foreign body. This document has been electronically signed by: Carlos Suarez MD on 05/06/2025 16:09:02 Dictated By: Carlos Suarez MD Signed By: <Electronically signed by Carlos Suarez MD in OV> 05/06/25 1610 DD/ 1609 TD/TT: 05/06/25 1609 [employer] Operator: Procedure Note Donotuseinterpreter, Image - 05/06/2025 [place] [address] XRay Report Signed Patient: Tiffanie Hidalgo#: [id number] : 6Acct:[id number] Age/Sex: 70 / FADM Date: 05/06/25 Loc: HO.ED Attending Dr: Ordering Physician: Karla Ramos Date of Service: 05/06/25 Procedure(s): XR elbow RT 2V Accession Number(s): [id number] cc: Hernan Urbina MD; Karla Ramos CLINICAL HISTORY: pain s p fall Three views of the right elbow. COMPARISON: None provided. FINDINGS: Soft tissue swelling overlying the posterior aspect of the upper right forearm. No elbow joint effusion. Anterior humeral and radiocapitellar lines are maintained. Visualized portions of the humerus, radius and ulna appear intact. Prominent enthesophyte present along the medial humeral condyle. IMPRESSION: 1. No radiographic evidence of acute injury to the right elbow. 2. Soft tissue swelling overlying the posterior aspect of the upper right forearm. No radiopaque foreign body. This document has been electronically signed by: Carlos Suarez MD on 05/06/2025 16:09:02 Dictated By: Carlos Suarez MD Signed By: <Electronically signed by Carlos Suarez MD in OV> 05/06/25 1610 DD/ 1609 TD/TT: 05/06/25 1609 Board[employer] Kennel Or Cattery Operator: [facility] External Provider IMG XR PROCEDURES Edited Result - Final * BI Mammogram Screening Tomosynthesis Bilateral (03/22/2025 9:45 AM EDT) Anatomical Region Laterality Modality Breast Bilateral Mammography 03/22/2025 9:45 AM EDT Narrative 03/28/2025 9:15 PM EDT [address] [place] [address] Mammography Report Signed Patient: Meena Hidalgo MR#: [id number] : 1955 Acct:[id number] Age/Sex: 70 / F ADM Date: 03/22/25 Loc: HO.MAMMO Attending Dr: Hernan Aaron MD Ordering Physician: Hernan Urbina MD Res ults: 1Negative Date of Service: 03/22/25 Follow Up: 1 Year From Orig inal Mammogram Procedure(s): MM tomosynthesis screening BI Accession Number(s): [id number] cc: Hernan Urbina MD EXAMINATION: MM SCREENING DIGITAL BREAST TOMOSYNTHESIS, BILATERAL CLINICAL INFORMATION: Screening. Asymptomatic. COMPARISON: Mammography: Comparison is made with available priors TECHNIQUE: Digital breast mammography with tomosynthesis is performed in both the craniocaudal and mediolateral oblique views along with computer-aided detection (CAD). FINDINGS: There are scattered areas of fibroglandular density (ACR BI-RADS breast composition Category b). There are no significant masses, abnormal calcifications, or other abnormalities. MM/MM tomosynthesis screening BI IMPRESSION: No mammographic evidence of malignancy. ASSESSMENT: BI-RADS BI-RADS 1 - Negative RECOMMENDATION: Routine annual mammography screening. 1 year F/U This examination should not preclude the clinical evaluation of a suspicious palpable abnormality. This patient's information was entered into a reminder system with a target due date for their next mammogram. Electronically signed by: Denise Fernandez DO 03/28/2025 09:12 PM EDT Dictated By: Denise Fernandez DO Signed By: <Electronically signed by Denise Fernandez DO in OV> 03/28/252111 DD/ TD/TT: 03/22/25 1007 [address] [employer] Or Cattery Operator: Procedure Note Donotuseinterpreter, Image - 03/28/2025 [facility] [address] [place], [place] [address] Mammography Report Signed Patient: Tiffanie Hidalgo#: [id number] : 1955cct:[id number] Age/Sex: 70 / FADM Date: 03/22/25 Loc: HO.MAMMO Attending Dr: Hernan Aaron MD Ordering Physician: Hernan Urbina ults: 1Negative Date of Service: 03/22/25Follow Up: 1 Year From Orig ina Mammogram Procedure(s): MM tomosynthesis screening BI Accession Number(s): [id number] cc: Hernan Urbina MD EXAMINATION: MM SCREENING DIGITAL BREAST TOMOSYNTHESIS, BILATERAL CLINICAL INFORMATION: Screening. Asymptomatic. COMPARISON: Mammography: Comparison is made with available priors TECHNIQUE: Digital breast mammography with tomosynthesis is performed in both the craniocaudal and mediolateral oblique views along with computer-aided detection (CAD). FINDINGS: There are scattered areas of fibroglandular density (ACR BI-RADS breast composition Category b). There are no significant masses, abnormal calcifications, or other abnormalities. MM/MM tomosynthesis screening BI IMPRESSION: No mammographic evidence of malignancy. ASSESSMENT: BI-RADS BI-RADS 1 - Negative RECOMMENDATION: Routine annual mammography screening. 1 year F/U This examination should not preclude the clinical evaluation of a suspicious palpable abnormality. This patient's information was entered into a reminder system with a target due date for their next mammogram. Electronically signed by: Denise Fernandez DO 03/28/2025 09:12 PM EDT Dictated By: Denise Fernandez DO Signed By: <Electronically signed by Denise Fernandez DO in OV> 03/28/252111 DD/ 0945 TD/TT: 03/22/25 1007 [address] [employer] [employer] Cattery Operator: us Hernan Aaron MD IMG BI PROCEDURES Edited Result - Final * (ABNORMAL) Albumin, Random Urine W/Creatinine (01/21/2025 10:40 AM EDT) Creatinine, Urine 72.43 mg/dL [facility] Microalbumin Urine 27.0 mg/L [facility] Microalbum Creatinine Ratio Ur 37.2(H) <30 ug/mg cr [facility] Comment:Albumin/Creatinine R atio Reference Ranges: Normal: < 30 ug/mg creatinine Microalbuminuria: 30 - 300 ug/mg creatinineClinical Albuminuria: > 300 ug/mg creatinine Urine (Urine, Random) 01/21/2025 10:40 AM EDT 01/21/2025 2:08 PM EDT us Hernan Aaron MD LAB URINE ORDERABL ES Final Result [facility] [address] [place] [address] [phone] * (ABNORMAL) Lipid Panel, Standard (01/21/2025 10:39 AM EDT) Triglycerides 159(H) <150 mg/dL [facility] Comment:Desirable Triglyceri de: less than 150 mg/dLBorderline High Triglyceride 150-199 mg/dLHigh Triglyceride: 200-499 mg/dLVery High Triglyceride: greater than or equal to 5OO mg/dL Cholesterol 332(H) <200 mg/dL [facility] Comment:Desirable Cholestero l: less than 200 mg/dLBorderline High Cholesterol: 200-239 mg/dLHigh Cholesterol: greater than 239 mg/dL LDL Cholesterol Calculated 247(H) <100 mg/dL [facility] Comment:Desirable LDL: less than 100 mg/dLNear Optimal/Above Optimal LDL: 110- 129 mg/dLBorderline High LDL: 130-159 mg/dLHigh LDL: 160-189 mg/dLVery High LDL: greater than or equal to 190 mg/dL HDL Cholesterol 54 >40 mg/dL [facility] Comment:Desirable HDL: great er than 40 mg/dL Note: This HDL assay may give artificially low results in patients with liver disease. Blood Venous blood specimen / Unknown 01/21/2025 10:39 AM EDT 01/21/2025 2:05 PM EDT us Hernan Aaron MD LAB BLOOD ORDERABL ES Final Result Performing Organization Address City/[facility] Co de Phone Number [facility] [address] [place] [address] [phone] * Hepatitis C Antibody with Reflex to HCV, RNA, Quantitative, Real-Time PCR (01/21/2025 10:34 AM EDT) Hepatitis C Antibody Nonreactive Nonreactive [facility] Comment:Antibodies to HCV no t detected; does not exclude early acuteHCV infection. Blood Venous blood specimen / Unknown 01/21/2025 10:34 AM EDT 01/21/2025 2:05 PM EDT us Hernan Aaron MD LAB BLOOD ORDERABL ES Final Result Performing Organization Address [facility] Co de Phone Number [facility] [address] [place] [phone] from Last 3 Months or Most Recently Relevant to Health Maintenance Insurance [facility] OPTIONS (HMO D-SNP) [facility] ST[facility]ARD [facility] - [facility] Care Teams Bundle Collector Relationship Specialty Start Date End Date Hernan Urbina MD [address] [place], [place] [id number], [place] [address] PCP - General Internal Medicine 01/21/25 Smitha Salas, JessD [address] [place] [phone] Pharmacist Pharmacy 06/09/25
--- OUTSIDE RECORDS SUMMARY | 2025-06-30 02:09 | XMS_ITS | Encounter Summary ---
Author Organization [facility] Address [address] [place] [address] Care Team Providers Care Systems Support Engineer Name Role Phone Hernan Urbina MD Primary Care Prov ider Smitha Salas PharmD Unavailable [phone] Encounter Details Date Type Department Care Team (Late st Contact Info) Description 11/15/2024 Telephone [facility] [address] [place], [place] [phone] Neha Felder DMD Social History Tobacco Use [...] Description 07/08/2025 2:00 PM EDT Medication Management [facility] [address] [place], [place] [phone] Smitha Salas, PharmD [address] [place] [address] 11/04/2025 2:00 PM EST Office Visit [facility] [address] [place] [address] Domingo Spence documented as of this encounter Visit Diagnoses Not on filedocumented in this encounter Care Teams Systems Support Engineer Relationship Specialty Start Date End Date Hernan Urbina MD [address] [place] [address] PCP - General Internal Medicine 01/21/25 Smitha Salas PharmD [address] [place] [phone] Pharmacist Pharmacy 06/09/25 documented as of this encounter
--- OUTSIDE RECORDS SUMMARY | 2025-06-30 02:09 | XMS_ITS | Encounter Summary ---
Author Organization [facility] Address [address] [place] [address] Care Team Providers Care Buttermaker Helper Name Role Phone Hernan Urbina MD Primary Care Prov ider Smitha Salas PharmD Unavailable [phone] Encounter Details Date Type Department Care Team (Late Contact Info) Description 08/10/2024 Telephone [facility] [address] [place], [place] [phone] Neha Felder DMD Social History Tobacco Use [...] Description 07/08/2025 2:00 PM EDT Medication Management [facility] [address] [place], [place] [phone] Smitha Salas, PharmD [address] [place] [address] 11/04/2025 2:00 PM EST Office Visit [facility] [address] [place] [address] Domingo Spence documented as of this encounter Visit Diagnoses Not on filedocumented in this encounter Care Teams Buttermaker Helper Relationship Specialty Start Date End Date Hernan Urbina MD [address] [place] [address] PCP - General Internal Medicine 01/21/25 Smitha Salas PharmD [address] [place] [phone] Pharmacist Pharmacy 06/09/25 documented as of this encounter
--- NOTE | 2025-06-30 02:31 | ED.ABDPAIN ---
HPI - Abdominal Pain General Chief Complaint: Abdominal Pain Stated Complaint: right side pain + back pain Time Seen by Provider: 06/30/25 02:27 Source: patient Mode of arrival: ambulatory Limitations: no limitations History of Present Illness ED Provider: Jean Carlos PAK HPI narrative: The patient is a 70-year-old female with a history of bladder cancer currently undergoing chemotherapy under the care of Dr. Busch, last received targeted chemotherapy 2 weeks ago, who presents to the ED for evaluation of worsening right lower quadrant and suprapubic abdominal pain with increasing hematuria. Patient reports she has previously been experiencing blood upon wiping after urination, however today she developed blood in her underwear without urination. Patient also reports generalized fatigue and malaise, denies associated near-syncope or syncope, denies fever/chills, nausea, vomiting, chest pain, shortness of breath, hematochezia, melena, or recent trauma. Related Data Home Medications ?Medication ?Instructions ?Recorded ?Confirmed lancets 28 gauge (FreeStyle #100 ea 08/03/20 01/10/25 Lancets) metoprolol succinate 200 mg 200 mg PO DAILY 06/26/21 01/10/25 tablet,extended release 24 hr nitroglycerin 0.4 mg sublingual 0 mg sublingual 09/19/22 01/10/25 tablet multivitamin 1 tab PO DAILY 10/07/23 01/10/25 artificial drp ophthalmic (eye) 09/23/24 01/10/25 tears([id number]) 0.1 %-0.3 %-0.2 % eye drops celecoxib 100 mg capsule (Celebrex) 100 mg PO DAILY PRN 10/15/24 01/10/25 Previous Rx's ?Medication ?Instructions ?Recorded blood sugar diagnostic (FreeStyle 1 strip miscellaneous BID for 06/18/22 Lite Strips) diabetes mellitus #100 strips rosuvastatin 5 mg tablet 5 mg PO DAILY #30 tabs 04/29/23 fluticasone propionate 110 1 puff inhalation Q12H #12 grams 12/11/23 mcg/actuation HFA aerosol inhaler lisinopril 5 mg tablet 5 mg PO DAILY #90 tabs 02/27/24 docusate sodium 100 mg capsule 100 mg PO DAILY #90 caps 07/13/24 albuterol sulfate 90 mcg/actuation 2 puff inhalation Q6H PRN 08/27/24 aerosol inhaler shortness of breath or wheezing #8.5 grams acetaminophen 500 mg tablet 500 mg PO Q6H PRN fever or pain 09/06/24 (Tylenol Extra Strength) #14 tabs cyclobenzaprine 5 mg tablet 5 mg PO BID PRN pain (scale score 09/10/24 7-10) #30 tabs dapagliflozin propanediol 10 mg 10 mg PO QAM #90 tabs 10/15/24 tablet (Farxiga) repaglinide 2 mg tablet 2 mg PO TID #90 tabs 10/15/24 lorazepam 1 mg tablet (Ativan) 1 mg PO ONCE anxiety #1 tab 11/11/24 ezetimibe 10 mg tablet 10 mg PO DAILY #90 tabs 12/16/24 sitagliptin phosphate 100 mg 100 mg PO DAILY #30 tabs 02/15/25 tablet (Januvia) hydroxyzine HCl 10 mg tablet 10 mg PO .qd PRN hives #30 tabs 02/16/25 mirabegron 25 mg tablet,extended 25 mg PO DAILY #30 tabs 02/16/25 release 24 hr (Myrbetriq) apixaban 5 mg tablet (Eliquis) 5 mg PO BID #180 tabs 03/03/25 dapagliflozin propanediol 10 mg 10 mg PO DAILY #90 tabs 03/03/25 tablet (Farxiga) estradiol 0.01% (0.1 mg/gram) See Rx Instructions .Route 3XW 90 05/19/25 vaginal cream days #42.5 grams Allergies Allergy/AdvReac Type Severity Reaction Status Date / Time atorvastatin (From LIPITOR) AdvReac Intermediate STOMACH Verified 06/30/25 00:42 ACHE oxycodone (From OXYCONTIN) AdvReac Intermediate SENSORY Verified 06/30/25 00:42 HALLUCINATIONS sulfamethoxazole (From AdvReac Intermediate chills Verified 06/30/25 00:42 Bactrim) vitamin d AdvReac Intermediate Hallucinati Uncoded 05/06/25 14:57 ons Review of Systems Review of Systems Yes all other systems are reviewed and are negative PMFSH Past Medical History Medical History Bladder mass Metformin adverse reaction Urinary incontinence, mixed Oropharyngeal dysphagia COVID-19 vaccination refused Refused influenza vaccine Diabetes mellitus with hyperglycemia, without long-term current use of insulin Anxiety as acute reaction to gross stress Mild intermittent asthma in adult without complication OAB (overactive bladder) Diabetes mellitus with microalbuminuria, without long-term current use of insulin Osteoarthritis, knee History of depression Osteopenia after menopause Overweight Varicose veins of right lower extremity History of ST elevation myocardial infarction (STEMI) Coronary artery disease involving [place] coronary artery Hypertension Refused pneumococcal vaccination Dyslipidemia Surgical History History of section Hx of myomectomy S/P left rotator cuff repair History of heart artery stent Family History Family History Father No problems noted. Mother No problems noted. 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 Vital signs as documented. HEAD: Atraumatic, normocephalic. EYES: EOMs grossly intact, pupils equal, conjunctiva clear, no exudate. ENT: Nares patent, no discharge. Airway patent, no audible stridor, visible mucosa is pink and moist without noted lesions. NECK: Trachea is midline, no obvious masses or gross abnormalities. CHEST: Symmetric movement, normal appearance. LUNGS: LS present and CTAB, no w/r/r. Non-labored work of breathing. CARDIAC: Regular Rhythm, S1/S2 appreciated, no murmurs, rubs or gallops. ABDOMEN: Abdomen soft x4 quadrants, gmew-ra-fkkepabr tenderness of the suprapubic region and right lower quadrant, no palpable masses or organomegaly. : Deferred. EXTREMITIES: Normal tone, moves all extremities spontaneously without reported pain. No obvious acute injury or deformity noted. NEURO: Alert and oriented x3, CN II-XII appear grossly intact. Cerebellar Functioning grossly intact. No obvious sensory or motor deficits. Speech clear and appropriate. PSYCH: normal affect, appropriate eye contact, fluid speech, with appropriate response to questioning. No reported suicidality or homicidality. SKIN: Warm, dry, color appropriate, normal turgor. No rashes noted. Course Reevaluation(s) Reevaluation #1: CT abdomen pelvis:No consolidation or effusion. The gallbladder and solid organs are within normal limits. No renal stones. No bowel obstruction, pneumoperitoneum, or pneumatosis. Sigmoid diverticulosis without evidence of diverticulitis. Urinary bladder underdistended, limiting evaluation. No obvious mass seen. Uterine fundal exophytic fibroid. Bilateral adnexae unremarkable. Normal appendix. Time: 05:21 Medical Decision Making Medical Decision Making [facility] Narrative: 3:00 AM 06/30/2025 (Angus PAK): The patient is a 70-year-old female presenting to the emergency department for evaluation of worsening right lower quadrant and suprapubic abdominal pain with increasing hematuria, now with blood in the underwear, in the setting of known bladder cancer with recent completion of targeted chemotherapy. In the ED patient is well-appearing, nontoxic, no acute distress. Patient's abdominal exam reveals mild tenderness of the suprapubic region and right lower quadrant, negative rebound, negative Rovsing's, no other acute findings. The patient's laboratory evaluation is markedly reassuring, no leukocytosis, significant anemia, electrolyte abnormality, or PAVEL. The patient's urinalysis is pending, we will obtain a postvoid residual following revision of urine sample, additionally the patient will be evaluated with CT abdomen and pelvis to evaluate for acute intra-abdominal pathology. Admission/Observation Consideration of admission/observation: Escalation of care including admission/observation considered Lab Data [facility] Lab Attestation statement: I reviewed the patient's lab results. 06/30/25 00:49 06/30/25 00:49 Labs: Lab Results 06/30/25 06/30/25 Range/Units 00:49 03:17 WBC 5.8 (4.8-10.8) X10*3/uL RBC 4.33 (4.20-5.50) X10*6/uL Hgb 13.2 (12.0-16.0) g/dl Hct 39.1 (37.0-47.0) % MCV 90.3 (80.0-98.0) fL MCH 30.5 (27.0-33.0) pg MCHC 33.8 (31.0-35.0) g/dl RDW 11.5 (11.0-16.0) % Plt Count 213 (160-400) X10*3/uL MPV 10.9 (9.4-12.3) fL Immature Gran % (Auto) 0.2 (0.0-0.4) % Neut % (Auto) 50.7 (45-73) % Lymph % (Auto) 32.7 (20-40) % [place] % (Auto) 12.8 H (2-11) % Eos % (Auto) 3.4 (0-4) % Baso % (Auto) 0.2 (0-2) % Lymph # (Auto) 1.9 (1.2-4.9) X10*3/uL [place] # (Auto) 0.8 (0.1-1.2) X10*3/uL Eos # (Auto) 0.2 (0.0-0.4) X10*3/uL Baso # (Auto) 0.0 (0.0-0.2) X10*3/uL Abs Immat Gran (auto) 0.01 (0.00-0.03) X10*3/uL Absolute Neuts (auto) 3.0 (2.0-8.3) x10*3/uL Absolute Nucleated RBC 0.000 (0.0-0.012) X10*3/uL Nucleated RBC % (auto) 0.0 (0.0-0.2) /100WBC Sodium 137 (135-145) mmol/L Potassium 4.6 (3.3-5.1) mmol/L Chloride 99 (96-108) mmol/L Carbon Dioxide 28 (22-29) mmol/L Anion Gap 15 (12-20) BUN 27 H (9-16) mg/dL Creatinine 0.81 (0.5-1.4) mg/dL Estim Creat Clear Calc 50.7 Estimated GFR > 60 Random Glucose 256 H (60-115) mg/dL Calcium 10.0 (8.4-10.2) mg/dL Total Bilirubin 0.3 (0.0-1.0) mg/dL AST 24 (5-31) U/L ALT 24 (0-31) U/L Alkaline Phosphatase 91 (39-117) U/L Total Protein 7.3 (6.5-8.0) g/dL Albumin 4.5 (3.5-5.0) g/dL Lipase 30 (8-78) U/L Urine Color Yellow Urine Appearance Clear Urine pH 5.5 (5.0-9.0) Ur Specific [place] >= 1.030 H (1.005-1.025) Urine Protein Negative (Neg-Trace) mg/dL Urine Glucose (UA) >=1000 H (Negative) mg/dL Urine Ketones 40 (Negative) mg/dL Urine Blood Small (1+) H (Negative) Urine Nitrite Negative (Negative) Ur Leukocyte Esterase Negative (Negative) Urine RBC 0-2 (0-2) /HPF Urine WBC 0-5 (0-5) /HPF Ur Squamous Epith Cells 0-2 (0-2) /HPF Urine Bacteria None Seen (None Seen) Hyaline Casts 0-2 (0-2) /LPF Independent Interpretation I performed an independent interpretation of an: CT Scan (Abdomen pelvis:No consolidation or effusion. The gallbladder and solid organs are within normal limits. No renal stones. No bowel obstruction, pneumoperitoneum, or pneumatosis. Sigmoid diverticulosis without evidence of diverticulitis. Urinary bladder underdistended, limiting evaluation. No obvi) Radiology Impression Discussion of test interpretation with radiology: I have reviewed the radiologist's reading. External Record Review External record reviewed: Outpatient record Prescription Management I considered prescription management with: Pain Medication and Antibiotic Medications Administered Discontinued Medications Generic Name Dose Route Start Last Admin Trade Name Freq PRN Reason Stop Dose Admin Iohexol 85 ml 06/30/25 03:43 06/30/25 03:44 Iohexol 350 Mg/Ml 100 Ml Infus..Btl IV 06/30/25 03:44 85 ml ONCE ONE Administration Discharge Plan Discharge Clinical Impression: Hematuria Patient Disposition: Home, Self-Care Instructions: Hematuria (ED) Prescriptions: No Action FreeStyle Lite Strips Strip 1 strip miscellaneous BID Qty: 100 0RF fluticasone propionate 110 mcg/actuation HFA aerosol inhaler 1 puff inhalation Q12H Qty: 12 1RF Rx Instructions: rinse and gargle mouth after use lisinopril 5 mg tablet 5 mg PO DAILY Qty: 90 0RF docusate sodium 100 mg capsule 100 mg PO DAILY Qty: 90 1RF ezetimibe 10 mg tablet 10 mg PO DAILY Qty: 90 1RF Januvia 100 mg tablet 100 mg PO DAILY Qty: 30 2RF mirabegron [Myrbetriq] 25 mg tablet extended release 24 hr 25 mg PO DAILY Qty: 30 1RF hydroxyzine HCl 10 mg tablet 10 mg PO .qd PRN (Reason: hives) Qty: 30 1RF estradiol 0.01 % (0.1 mg/gram) cream See Rx Instructions .Route 3XW 90 Days Qty: 42.5 1RF Rx Instructions: Apply a pea-sized amount to urethra daily x1 month and then 3 times per week thereafter acetaminophen [Tylenol Extra Strength] 500 mg tablet 500 mg PO Q6H PRN (Reason: fever or pain) Qty: 14 0RF albuterol sulfate 90 mcg/actuation HFA aerosol inhaler 2 puff inhalation Q6H PRN (Reason: shortness of breath or wheezing) Qty: 8.5 0RF nitroglycerin 0.4 mg tablet, sublingual 0 mg sublingual (DME) lancets [FreeStyle Lancets] 28 gauge misc See Rx Instructions .ROUTE .MEDSUPPLY Qty: 100 Rx Instructions: As directed rosuvastatin 5 mg tablet 5 mg PO DAILY Qty: 30 5RF metoprolol succinate 200 mg tablet extended release 24 hr 200 mg PO DAILY multivitamin Tablet 1 tab PO DAILY cyclobenzaprine 5 mg tablet 5 mg PO BID PRN (Reason: pain (scale score 7-10)) Qty: 30 0RF lorazepam [Ativan] 1 mg tablet 1 mg PO ONCE Qty: 1 0RF Rx Instructions: Take 30 minutes prior to arrival to procedure celecoxib [Celebrex] 100 mg capsule 100 mg PO DAILY PRN repaglinide 2 mg tablet 2 mg PO TID Qty: 90 1RF Rx Instructions: administer within 30 minutes of a meal or snack Farxiga 10 mg tablet 10 mg PO QAM Qty: 90 1RF Eliquis 5 mg tablet 5 mg PO BID Qty: 180 0RF dapagliflozin propanediol [Farxiga] 10 mg tablet 10 mg PO DAILY Qty: 90 0RF artificial tear(iztth-csh-acr) 0.1-0.3-0.2 % drops ophthalmic (eye) Referrals: Jean Busch MD [Physician, Urology] Print Language: Korean
[2025-06-30 03:32] LABS: Appearance Urine Clear; Glucose Urine UA >=1000 mg/dL (Negative); PH 5.5 (5.0-9.0); Specific Gravity - Urine >= 1.030 (1.005-1.025); UMIC TRIGGER UACC YES
[2025-06-30] MEDS: iohexoL 350 MG/ML 100 ML INFUS..BTL 85 ML IV (03:44)
[2025-06-30 05:29] VITALS: BP 170/71; PULSE 68; RESP 18; TEMP 36.6; O2SAT 99
[2025-06-30 06:41] VITALS: BP 164/74; PULSE 78; RESP 16; TEMP 36.6; O2SAT 97
== END 2025-06-30 06:43 | disposition home or self-care (01) ==
PROVIDERS: Emergency Provider Emergency Medicine
DX: R31.9 Hematuria, unspecified (principal); R10.2 Pelvic and perineal pain; M54.50 Low back pain, unspecified; R10.31 Right lower quadrant pain; Z79.899 Other long term (current) drug therapy
CPT/HCPCS: 36415; 51798; 74177; 80053; 81001; 83690; 85025; 99283; 99284; Q9967

== ENCOUNTER → 2025-06-30 02:43 | Outpatient (BNV) | payer OTHER, SELFPAY | PROVIDERS: Emergency Provider Emergency Medicine; Visit Provider Student in an Organized Health Care Education/Training Program | DX: K57.30 Diverticulosis of large intestine without perforation or abscess without bleeding (principal) | CPT/HCPCS: 74177 ==

== ENCOUNTER 2025-07-12 13:53 | Outpatient (AMB) | payer OTHER, SELFPAY ==
--- OUTSIDE RECORDS SUMMARY | 2024-11-19 08:30 | XMS_ITS ---
Author Organization [facility] Address [address] [place] [address] Care Team Providers Care Business Support Manager Name Role Phone Hernan Wasserman Primary Care Provider Unavailable Kathrine Cheema Unavailable [phone] REASON FOR VISIT r/s for sooner apt Encounters Encounter Location Date Provider Diagnosis [facility] [address] [place] [address] 11/19/2024 Kathrine Cheema Plan Of Treatment Next Appt Details Provider Name:Kathrine armando, 09/13/2025 03:30:00 PM, [address] [place], [address], Progress Notes * Judie TOLLIVERB:[birth year] (70 yo F)Acc No.[id number]:11/19/2024 Progress Note Patient: Lucien MCCONNELLTabby Meena Provider: Gretchen Cheema DPM :1955 A ge:69 Y S ex:Female Date:11/19/2024 Address:[address] [place] [address], [address], [id number] Pcp:Hernan wu Subjective: * Chief Complaints: * [...] 11/19/2024 Generated for Osmar Carr/Bridgett on: 0 07/12/2025 04:32 PM EDT
--- NOTE | 2025-07-12 14:06 | MHC.OFFVIS ---
Intake Visit Reasons: Cysto Intake Note: Patient is present for Cystoscopy Urology Medication:ESTRADIOL,,MIRABEGRON Antibiotic Allergy:ATORVASTATIN,BACTRIM Blood Thinner:APIXABAN LOT#[id number] EXP 01/10/2027 Traveling Clerk Required: No Accompanied by: Self / Same As Patient Allergies atorvastatin (From LIPITOR) Adverse Reaction (Intermediate, Verified 07/12/25 14:07) STOMACH ACHE oxycodone (From OXYCONTIN) Adverse Reaction (Intermediate, Verified 07/12/25 14:07) SENSORY HALLUCINATIONS sulfamethoxazole (From Bactrim) Adverse Reaction (Intermediate, Verified 07/12/25 14:07) chills vitamin d Adverse Reaction (Intermediate, Uncoded 05/06/25 14:57) Hallucinations HPI Comments Details: Meena is a very pleasant patient. She is a patient of Dr. Rajput. She is seen for the following urologic conditions - bladder cancer Here for check cystoscopy Bladder looks good Add overactive bladder medications Has urinary urgency and frequency Gemtesa prescribed Bladder cancer - High-Grade, Superficial, Noninvasive TURBT 03/27 Procedure: Transurethral resection Tumor site: Left ureteric orifice Histologic type: Papillary urothelial carcinoma Histologic grade: High-grade Muscularis propria: Not identified Extent of invasion: Non-invasive Lymphovascular invasion: Not identified CT urogram performed - 1.7 cm polypoid mass on left bladder wall Adjuvant therapy - 6 week induction mitomycin-C and cytarabine PFS Medical History Bladder mass Metformin adverse reaction Urinary incontinence, mixed Oropharyngeal dysphagia COVID-19 vaccination refused Refused influenza vaccine Diabetes mellitus with hyperglycemia, without long-term current use of insulin Anxiety as acute reaction to gross stress Mild intermittent asthma in adult without complication OAB (overactive bladder) Diabetes mellitus with microalbuminuria, without long-term current use of insulin Osteoarthritis, knee History of depression Osteopenia after menopause Overweight Varicose veins of right lower extremity History of ST elevation myocardial infarction (STEMI) Coronary artery disease involving [place] coronary artery Hypertension Refused pneumococcal vaccination Dyslipidemia Surgical History History of section Hx of myomectomy S/P left rotator cuff repair History of heart artery stent Family History Father No problems noted. Mother No problems noted. 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 Current occupational exposures/hazards: No Cognitive needs: No Hearing needs: No Vision needs: Yes Female Reproductive History Menstrual Age of Menarche: 12 Review of Systems Const Denies chills and Denies fever(s) Card Reports no additional complaints and Denies syncope Resp Denies cough GI Denies abdominal pain and Denies heartburn Reports as per HPI and Denies change in libido Neuro Denies syncope Psych Denies change in libido Endo Denies change in libido Physical Exam Const General: cooperative, healthy appearing, comfortable and no acute distress Orientation/consciousness: patient oriented x3 HEENT Face and sinus: Yes normal facial exam Mouth: moist mucous membranes Neck Neck: Yes normal visual inspection, Yes full ROM and Yes trachea midline Chest Chest palpation & inspection: normal inspection of the chest Resp Effort & Inspection: normal respiratory effort, able to speak in complete sentences and no respiratory distress GI Inspection: Yes normal to inspection Back/Spine/Pelvis Cervical Spine: normal cervical lordosis Thoracic/Lumbar Spine: thoracic and lumbar spine normal to inspection Skin General skin exam: no rashes or lesions noted Neuro General: patient oriented x3, gait normal, tone normal and moves all extremities Extrem General: Yes normal to inspection and Yes capillary refill normal Office Procedures Cystoscopy Consent Discussed risk and benefit or proposed procedure with the patient. Information consent for procedure given to the patient. Discussed technical aspects, risks, benefits and alternatives in full. Addressed all of the patient's questions and concerns regarding the procedure. The patient demonstrated knowledge and understanding. They wish to proceed with this procedure. Preparation The patient was prepped in the usual manner. A minor league baseball player was present and in the room. Genitalia was prepped with betadine solution in a sterile manner. Lidocaine Jelly 2% was placed into the urethra and 16Fr flexible Olympus cystoscope was inserted into the meatus after adequate lubrication. [id number] DISPOSABLE SCOPE URO-G FLEXIBLE SCOPE Procedure code (CPT) selection complete Office Meds lidocaine HCl 2 % mucosal jelly in applicator Performing Provider: Jean Busch MD Performing Location: [facility] [place] [place] [facility] Administered by: Dayan Francis RN on 07/12/25 14:19 Dose Route Admin Location Dispensed Lot Number Expiration Date NDC Art Professor 10 mL intra-urethral 10 mL nitrofurantoin monohydrate/macrocrystals 100 mg capsule Performing Provider: Jean Busch MD Performing Location: [facility] [place] [place] [facility] Administered by: Dayan Francis RN on 07/12/25 14:19 Dose Route Admin Location Dispensed Lot Number Expiration Date NDC Art Professor 100 mg PO 1 cap Assessment & Plan Assessment & Plan (1) OAB (overactive bladder): Code(s): N32.81 - Overactive bladder Category: Medical (2) Bladder cancer: Comment: Superficial high-grade Code(s): C67.9 - Malignant neoplasm of bladder, unspecified Category: Medical Plan Three-month follow-up office cysto Start Gemtesa Orders: Orders AMB Cystoscopy Today N39.0 - Urinary tract infection, site not specified, R31.0 - Gross hematuria Medications: New vibegron 75 mg PO DAILY 30 tabs 1RF 30 days N39.46 - Mixed incontinence Patient Instructions: This note is constructed using voice recognition software. While every effort has been made to ensure accuracy aerodynamics engineer errors may have been included. Imaging studies, laboratory and physical exam results were discussed and reviewed in detail. No major barriers to patient understanding were identified. An opportunity to ask questions regarding the treatment plan was provided. All questions were answered. The patient expressed understanding and agreement with the above treatment plan. The patient is aware they should contact our office by phone for worsening of their current condition or the appearance of new urologic symptoms. Compliance is encouraged with any medications and followup testing that is ordered. It is a privilege to participate in the urologic care of your patient. If you have any questions or concerns regarding treatment for the above conditions, or other urologic issues, please do not hesitate to contact me. The office telephone contact is [phone]. Sincerely, Dr Jean Busch MD, [facility] - Urology Compassionate Specialist Care for the Genitourinary System Coding Level of Care Code Est Pt Level 4 (23659) Complex EM visit Add On G2211 Diagnoses OAB (overactive bladder) N32.81 Bladder cancer C67.9 CPT Codes Cystoscopy - CPT: [id number] ([id number])
--- OUTSIDE RECORDS SUMMARY | 2025-07-12 16:32 | XMS_ITS | Encounter Summary ---
Author Organization [employer] Address [address] [place] [address] Care Team Providers Care Tavern Operator Name Role Phone Hernan Urbina MD Primary Care Prov ider Smitha Salas PharmD Unavailable [phone] Reason for Visit * Reason Comments Med Refill Encounter Details Date Type Department Care Team (Late st Contact Info) Description 05/09/2025 Refill [facility] [address] [place] [address] Hernan Urbina MD [address] [place], [place] [phone] Social History Tobacco Use Types Packs/Day Years [...] Care Team (Late st Contact Info) Description 07/19/2025 1:00 PM EDT Telemedicine [facility] [address] [place] [address] Hernan Urbina MD [address] [place] [address] 08/08/2025 1:30 PM EDT Medication Management [facility] [address] [place] [address] Smitha Salas, PharmD [address] [place] [address] 11/04/2025 2:00 PM EST Office Visit [facility] [address] [place] [address] Domingo Spence documented as of this encounter Visit Diagnoses Not on filedocumented in this encounter Additional Health Concerns Assessment Noted Time PHQ-9 Depression Total Score: 2 12/21/19 25 8:57 AM EST documented as of this encounter Care Teams Tavern Operator Relationship Specialty Start Date End Date Hernan Urbina MD [address] [place] [address] PCP - General Internal Medicine 01/21/25 Smitha Salas, PharmD [address] [place] [address] Pharmacist Pharmacy 06/09/25 documented as of this encounter
--- OUTSIDE RECORDS SUMMARY | 2025-07-12 16:32 | XMS_ITS | Encounter Summary ---
Author Organization [employer] Address [address] [place] [address] Care Team Providers Care Technical Sales Specialist Name Role Phone Hernan Urbina MD Primary Care Prov ider Smitha Salas PharmD Unavailable [phone] Encounter Details Date Type Department Care Team (Latest Contact Info) Description 07/08/2025 Travel Social History Tobacco Use Types Packs/Day [...] Info) Description 07/19/2025 1:00 PM EDT Telemedicine [facility] [address] [place] [address] Hernan Urbina MD [address] [place] [address] 08/08/2025 1:30 PM EDT Medication Management [facility] [address] [place] [address] Smitha Salas, PharmD [address] [place] [address] 11/04/2025 2:00 PM EST Office Visit [facility] [address] [place] [address] Domingo Spence documented as of this encounter Visit Diagnoses Not on filedocumented in this encounter Additional Health Concerns Assessment Noted Time PHQ-9 Depression Total Score: 2 12/21/19 8:57 AM EST documented as of this encounter Care Teams Technical Sales Specialist Relationship Specialty Start Date End Date Hernan Urbina MD [address] [place] [address] PCP - General Internal Medicine 01/21/25 Smitha Salas, PharmD [address] [place] [address] Pharmacist Pharmacy 06/09/25 documented as of this encounter
--- OUTSIDE RECORDS SUMMARY | 2025-07-12 16:33 | XMS_ITS | Encounter Summary ---
Author Organization [employer] Address [address] [facility] [address] [place] [address] Care Team Providers Care Sand Screener Operator Name Role Phone Hernan Urbina MD Primary Care Prov ider Smitha Salas PharmD Unavailable [phone] Reason for Visit * Reason Comments Med Refill Encounter Details Date Type Department Care Team ([facility] st Contact Info) Description 07/07/2025 Refill [facility] [address] [place], [place] [phone] Hernan Urbina MD [address] [place] [address] Social History Tobacco Use Types Packs/Day Years [...] Info) Description 07/19/2025 1:00 PM EDT Telemedicine [facility] [address] [place] [address] Hernan Urbina MD [address] [place] [address] 08/08/2025 1:30 PM EDT Medication Management [facility] [address] [place] [address] Smitha Salas, PharmD [address] [place], [place] [phone] 11/04/2025 2:00 PM EST Office Visit [facility] AD[facility] [address] [place] [address] Domingo Spence documented as of this encounter Visit Diagnoses Not on filedocumented in this encounter Additional Health Concerns Assessment Noted Time PHQ-9 Depression Total Score: 2 12/21/19 25 8:57 AM EST documented as of this encounter Care Teams Sand Screener Operator Relationship Specialty Start Date End Date Hernan Urbina MD [address] [place] [address] PCP - General Internal Medicine 3/21/25 Smitha Salas, JessD [address] [place] [address] Pharmacist Pharmacy 06/09/25 documented as of this encounter
--- OUTSIDE RECORDS SUMMARY | 2025-07-12 16:33 | XMS_ITS | Encounter Summary ---
Author Organization [employer] Address [address] [place] [address] Care Team Providers Care Farm Crew Leader Name Role Phone Hernan Urbina MD Primary Care Prov ider Smitha Salas PharmD Unavailable [phone] Reason for Visit * Reason Onset Date Comments Appointment 05/20/2023 Encounter Details Date Type Department Care Team ([facility] st Contact Info) Description 05/20/2023 Telephone [facility] [address] [place] [address] Thompson Cobb DDS [address] [place] [address] Appointment Social History Tobacco Use Types Packs/Day [...] 07/19/2025 1:00 PM EDT Telemedicine [facility] [address] [place] [address] Hernan Urbina MD [address] [place] [address] 08/08/2025 1:30 PM EDT Medication Management [facility] [address] [place] [address] Smitha Salas PharmD [address] [place] [address] 11/04/2025 2:00 PM EST Office Visit [facility] [address] [place] [address] Domingo Spence documented as of this encounter Visit Diagnoses Not on filedocumented in this encounter Care Teams Farm Crew Leader Relationship Specialty Start Date End Date Hernan Urbina MD [address] [place] [address] PCP - General Internal Medicine 01/21/25 Smitha Salas, PharmEric [address] [place] [address] Pharmacist Pharmacy 06/09/25 documented as of this encounter
--- OUTSIDE RECORDS SUMMARY | 2025-07-12 16:33 | XMS_ITS | Encounter Summary ---
Author Organization [employer] Address [address] [facility] 7t [place] [address] Care Team Providers Care Operation Specialist Name Role Phone Hernan Urbina MD Primary Care Prov ider Smitha Salas PharmD Unavailable [phone] Encounter Details Date Type Department Care Team ([facility] Contact Info) Description 08/10/2024 Telephone [facility] [address] [place], [place] [phone] Neha Felder DMD Social History Tobacco Use [...] Upcoming Encounters Date Type Department Care Team ([facility] Contact Info) Description 07/19/2025 1:00 PM EDT Telemedicine [facility] [address] [place], [place] [phone] Hernan Urbina MD [address] [place] [address] 08/08/2025 1:30 PM EDT Medication Management [facility] [address] [place] [address] Smitha Salas PharmD [address] [place] [address] 11/04/2025 2:00 PM EST Office Visit [facility] ADULT [facility] [address] [place] [address] Domingo Spence documented as of this encounter Visit Diagnoses Not on filedocumented in this encounter Care Teams Operation Specialist Relationship Specialty Start Date End Date Hernan Urbina MD [address] [place] [address] PCP - General Internal Medicine 01/21/25 Smitha Salas PharmD [address] [place] [phone] Pharmacist Pharmacy 06/09/25 documented as of this encounter
--- OUTSIDE RECORDS SUMMARY | 2025-07-12 16:33 | XMS_ITS | Encounter Summary ---
Author Organization [employer] [facility] Address [address] [facility] 7t [place] [address] Care Team Providers Care Septic Tank Servicer Name Role Phone Hernan Urbina MD Primary Care Prov ider Smitha Salas PharmD Unavailable [phone] Encounter Details Date Type Department Care Team (Latest Contact Info) Description 02/02/2021 Abstract [facility] CONVERSIONS Dental, Provider, DDS Social History [...] Info) Description 07/19/2025 1:00 PM EDT Telemedicine [facility] [address] [place] [address] Hernan Urbina MD [address] [place] [address] 08/08/2025 1:30 PM EDT Medication Management [facility] [address] [place], [place] [phone] Smitha Salas, PharmD [address] [place] [address] 11/04/2025 2:00 PM EST Office Visit [facility] ADULT D[facility] [address] [place] [address] Domingo Spence documented as of this encounter Visit Diagnoses Not on filedocumented in this encounter Care Teams Septic Tank Servicer Relationship Specialty Start Date End Date Hernan Urbina MD [address] [place] [address] PCP - General Internal Medicine 01/21/25 Smitha Salas PharmD [address] [place] [address] Pharmacist Pharmacy 06/09/25 documented as of this encounter
--- OUTSIDE RECORDS SUMMARY | 2025-07-12 16:33 | XMS_ITS | Patient Health Record ---
Author Organization [facility] Address [address] [place] [address] Care Team Providers Care Prosthetic Makeup Designer Name Role Phone Hernan Wasserman Primary Care Provider Unavailable Kathrine Cheema Unavailable [phone] Allergies Allergen (clinical drug ingredient) Drug/Non Drug Allergy documented on EMR Reaction Allergy Type Onset Date Status oxycodone OxyContin hallucination Drug Allergy Act leif shrimp allergenic extract Shrimp (Diagnostic) Unknown Drug Allergy Active Shellfish (FN) Shellfish-derived Products Unknown Drug Allergy Active vitamin D Vitamin D hallucinations Drug Allergy Ac tive Results Component Value Reference Range Notes HEMOGLOBIN A1C (GLYCOHEMOGLO BIN) Reviewed date:07/05/2025 03:02:11 PM Interpretation: Performing Lab: Notes/Report: HEMOGLOBIN A1C % (HH) 7.2 HEMOGLOBIN A1C (GLYCOHEMOGLO BIN) Reviewed date:01/25/2025 02:47:01 PM Interpretation: Performing Lab: Notes/Report: HEMOGLOBIN A1C % (HH) 7.2 Reason For Referral No Information Medications Medication SIG (Take, Route, Frequency, Duration) Notes Start Date End Date Status CeleBREX Not-Taking Repaglinide 2 MG TAKE ONE TABLET BY MOUTH THREE TIMES DAILY 30 MINUTES BEFORE A MEAL OR SNACK Oral; Duration: 30 Not-Taking Extra Depth Orthopedic Shoes (1 Pair) with Customized Heat Molded Multidensity Innersoles (3 Pair) as directed Dx: NIDDM/Polyneuropathy (E11.42), Hammertoe Foot Deformity (M20.41,M20.42), Preulcerative Skin Lesion(s) (L85.1 Not-Taking Flovent HFA 110 MCG/ACT Inhalation; Dura tion: 60 Not-Taking Ammonium Lactate 12 % 1 application to affected area Externally to feet Twice a day; Duration: 30 days Not-Taking Extra Depth Orthopedic Shoes (1 Pair) with Customized Heat Molded Multidensity Innersoles (3 Pair) as directed Dx: NIDDM/Polyneuropathy (E11.42), Hammertoe Foot Deformity (M20.41,M20.42), Preulcerative Skin Lesion(s) (L85.1 01/15/2022 Not-Taking Lisinopril 40 MG Oral; Duration: 90 Days Active Feldene 20 MG 1 capsule with food Orally Once a day as needed. Do NOt take any additional NSAIDs such as Motrin or Ibuprofen with this medication; Duration: 30 day(s) 01/07/2024 Active Januvia 100 MG Oral; Duration: 30 Not-Taking Extra Depth Orthopedic Shoes (1 Pair) with Customized Heat Molded Multidensity Innersoles (3 Pair) as directed Dx: NIDDM/Polyneuropathy (E11.42), Hammertoe Foot Deformity (M20.41,M20.42), Preulcerative Skin Lesion(s) (L85.1 Active Eliquis 5 MG as directed Orally Active Methylprednisolone N ot-Taking Farxiga 10 MG 1 tablet Orally Once a day; Duration: 30 day(s) Active Acetaminophen 325 MG 1 tablet as needed Orally every 4 hrs Not-Taking Arthritis Pain PRN Activ e Extra Depth Orthopedic Shoes (1 Pair) with Customized Heat Molded Multidensity Innersoles (3 Pair) as directed Dx: NIDDM/Polyneuropathy (E11.42), Hammertoe Foot Deformity (M20.41,M20.42), Preulcerative Skin Lesion(s) (L85.1 07/23/2019 Active Extra Depth Orthopedic Shoes (1 Pair) with Customized Heat Molded Multidensity Innersoles (3 Pair) as directed Dx: NIDDM/Polyneuropathy (E11.42), Hammertoe Foot Deformity (M20.41,M20.42), Preulcerative Skin Lesion(s) (L85.1 04/23/2023 Active Ammonium Lactate 12 % 1 application to affected area Externally to feet Twice a day; Duration: 30 days Active hydrOXYzine HCl 10 MG Oral; Duration: 30 Active Lisinopril Not-Takin g Vitamin D3 2000 UNIT 1 capsule Orally On ce a day; Duration: 30 day(s) Not-Taking Gabapentin Not-Takin g Rosuvastatin Calcium 40 MG 1 tablet Oral ly Once a day; Duration: 30 day(s) Active Cyclobenzaprine HCl 10 MG 1 tablet as ne eded Orally Three times a day Not-Taking Metoprolol Succinate Active Brilinta 90 MG 1 tablet Orally Twic e a day; Duration: 30 day(s) Not-Taking Immunizations Vaccine Route Administration Date Status Comme nts Influenza Unknown 08/25/2020 Refused Influenza Unknown 04/23/2023 Refused COVID-19 [employer]iot Unknown 04/12/2021 A dministered Social History Tobacco Use: Social History Observation Description Date Details (start date - stop date) Never Smoker NA - NA Alcohol Screen Question Answer Notes Did you have a drink containing alcohol in the p ast year? No Points 0 Interpretation Negative Tobacco use other than smoking: Question Answer Notes Are you an other tobacco user? No Tobacco Control (Standard) Question Answer Notes Tobacco use: Nonsmoker Additional Findings: Tobacco non-user Current no nsmoker AUDIT-C (Standard) Question Answer Notes Did you have a drink containing alcohol in the p ast year? No Points 0 Interpretation Negative Problems Problem Type SNOMED Code ICD Code Onset Dates Problem Status W/U Status Risk Notes Problem Polyneuropathy due to type 2 diabetes mellitus (592025804) Type 2 diabetes mellitus with polyneuropathy (E11.42) Active confirmed Vital Signs Blood pressure diastolic 77 mm Hg 07/05/2025 Height 4ft 11in in 07/05/2025 Blood pressure systolic 130 mm Hg 07/05/2025 Weight 126 lbs 07/05/2025 BMI 25.45 kg/m2 07/05/2025 Encounters Encounter Location Date Provider Diagnosis [facility] [address] 11/16/2024 Kathrine Cheema Type 2 diabetes mellitus with polyneuropathy E11.42 ; Other hammer toe(s) (acquired), right foot M20.41 and Other hammer toe(s) (acquired), left foot M20.42 [facility] [address] 01/25/2025 Kathrine Cheema Type 2 diabetes mellitus with polyneuropathy E11.[address] [address] 04/05/2025 Kathrine Cheema Type 2 diabetes mellitus with polyneuropathy E11.42 ; Other hammer toe(s) (acquired), right foot M20.41 and Other hammer toe(s) (acquired), left foot M20.[address] [address] 07/05/2025 Kathrine Cheema Type 2 diabetes mellitus with polyneuropathy E11.[address] [address] 09/07/2024 Kathrine Cheema [address] [address] 09/07/2024 Kathrine Cheema [address] [address] 05/25/2025 Kathrine Cheema Assessments Encounter Date Diagnosis (ICD Code) Assessment Notes Treatment Notes Treatment Clinical Notes Section Notes 11/16/2024 Type 2 diabetes mellitus with polyneuropathy (ICD-10 - E11.42) 01/25/2025 Type 2 diabetes mellitus with polyneuropathy (ICD-10 - E11.42) 04/05/2025 Type 2 diabetes mellitus with polyneuropathy (ICD-10 - E11.42) 07/05/2025 Type 2 diabetes mellitus with polyneuropathy (ICD-10 [...] left foot (ICD-10 - M20.42) 01/25/2025 Other 07/05/2025 Other Plan Of Treatment Pending Test Test Name Order Date X ray : Foot, left 3V 07/23/2019 X ray : Ankle, right 3V 11/05/2023 Next Appt Details Provider Name:Kathrine armando, 09/13/2025 03:30:00 PM, [address] [place], [address], Insurance Providers Payer Name Payer Address Payer Phone Subscriber Number Group Number Insured Name Patient Relationship to Insured Coverage Start Date Coverage End Date [facility] [employer] Claims [address] [place] [address] [phone] [id number] Meena Hidalgo Self - patient is the insured Medical (General) History Medical History History ICD Code type 2 diabetes depression/anxiety hyperlipidemia psychophysiological insomnia osteopenia adnexal mass HTN asthma NE 02/24/19 fatty liver uterine fibroid Arthritis Back,Hip,and Knee pain CAD (Cholesterol) High blood pressure Sciatica Stomach ulcer covid-19 Cancer Surgical History Surgery Date(Month/Year) 2x wisdom teeth extraction ganglion cyst resection Left rotator cuff repair Left hand tendon repair Right fibroid removal Dr. Ferguson 2012 LAD cardiac stent 03/2019 Right groin thrombectomy 03/2019 Left leg pain [facility] htn 05/2019 Stent 02/2019 bladder surgery- Cancer- Chemo therapy 0 03/07/25 Hospitalization History Reason Date(Month/Year) [facility]-bronchitis 08/26
--- OUTSIDE RECORDS SUMMARY | 2025-07-12 16:33 | XMS_ITS | Encounter Summary ---
Author Organization [employer] Address [address] [place] [address] [address] [place] [address] Care Team Providers Care Vp Integration Name Role Phone Hernan Urbina MD Primary Care Prov ider Smitha Salas PharmD Unavailable [phone] Encounter Details Date Type Department Care Team ([facility] Contact Info) Description 11/01/2022 Abstract [facility] [address] [place] [address] Thompson Cobb DDS [address] [place] [address] Social History Tobacco Use Types Packs/Day Years [...] Upcoming Encounters Date Type Department Care Team ([facility] Contact Info) Description 07/19/2025 1:00 PM EDT Telemedicine [facility] [address] [place] [address] Hernan Urbina MD [address] [place] [address] 08/08/2025 1:30 PM EDT Medication Management [facility] [address] [place], [place] [phone] Smitha Salas, PharmD [address] [place] [address] 11/04/2025 2:00 PM EST Office Visit [facility] [address] [place] [address] Domingo Spence documented as of this encounter Visit Diagnoses Not on filedocumented in this encounter Care Teams Vp Integration Relationship Specialty Start Date End Date Hernan Urbina MD [address] [place] [address] PCP - General Internal Medicine 01/21/25 Smitha Salas PharmD [address] [place] [address] Pharmacist Pharmacy 06/09/25 documented as of this encounter
--- OUTSIDE RECORDS SUMMARY | 2025-07-12 16:33 | XMS_ITS | Encounter Summary ---
Author Organization [employer] Address [address] [facility] [address] [place] [address] Care Team Providers Care Ice Rink Attendant Name Role Phone Hernan Urbina MD Primary Care Prov ider Smitha Salas PharmD Unavailable [phone] Encounter Details Date Type Department Care Team ([facility] Contact Info) Description 11/15/2024 Telephone [facility] [address] [place] [address] Neha Felder DMD Social History Tobacco Use [...] Upcoming Encounters Date Type Department Care Team ([facility] Contact Info) Description 07/19/2025 1:00 PM EDT Telemedicine [facility] [address] [place], [place] [phone] Hernan Urbina MD [address] [place], [place] [phone] 08/08/2025 1:30 PM EDT Medication Management [facility] [address] [place] [address] Smitha Salas PharmD [address] [place] [address] 11/04/2025 2:00 PM EST Office Visit [facility] [address] [place] [address] Domingo Spence documented as of this encounter Visit Diagnoses Not on filedocumented in this encounter Care Teams Ice Rink Attendant Relationship Specialty Start Date End Date Hernan Urbina MD [address] [place] [address] PCP - General Internal Medicine 01/21/25 Smitha Salas PharmD [address] [place] [address] Pharmacist Pharmacy 06/09/25 documented as of this encounter
--- OUTSIDE RECORDS SUMMARY | 2025-07-12 16:33 | XMS_ITS | Clinical Summary ---
Author Organization [employer] Address [address] [facility] [facility] [address] 7[address] [place] [address] Care Team Providers Care Tank Truck Driver Name Role Phone Hernan Urbina MD Primary Care Prov ider Smitha Salas PharmD Unavailable [phone] Allergies Active Allergy Reactions Criticality Noted Date Comments Oxycodone 03/03/2017 Shrimp Extract 03/15/2016 Vitamin D (Calciferol) 12/21/2024 Medications glucose blood (FREESTYLE LITE) test strip 07/16/20 18 Active apixaban (Eliquis) 5 MG tablet Take 1 tablet by mouth every 12 (twelve) hours. Active metoprolol succinate XL (Toprol-XL) 200 MG 24 hr tablet Take 200 mg by mouth in the morning. 12/26/19 24 Active Ventolin HFA 108 (90 Base) MCG/ACT inhaler Inhale 1 puff every 4 (four) hours if needed. 08/27/20 24 Active lisinopril 40 MG tablet Take 1 tablet (40 mg) by mouth Once per day. 90 tablet 3 02/23/20 25 026 Active ezetimibe (Zetia) 10 MG tablet TAKE 1 TABLET BY MOUTH EVERY DAY 90 tablet 04/20/20 25 Active rosuvastatin (Crestor) [...] TWICE DAILY 04/04/20 25 Active semaglutide (Rybelsus) 7 MG tablet Take 1 tablet (7 mg) by mouth before breakfast. 30 tablet 2 06/09/20 25 Active hydrOXYzine HCl (Atarax) 10 MG tablet TAKE ONE TABLET EVERY EVENING NEEDED FOR HIVES 30 tablet 07/07/20 25 Active Farxiga 10 MG TAKE 1 TABLET BY MOUTH EVERY MORNING 90 tablet 07/08/20 25 Active repaglinide (Prandin) 2 MG tablet Take 2 mg by mouth before breakfast, before lunch, and before evening meal. 025 Discontinued(Shakir holguin refused) dapagliflozin (Farxiga) 10 MG TAKE 1 TABLET BY MOUTH EVERY MORNING 90 tablet 04/20/20 25 025 Discontinued semaglutide (Rybelsus) 3 MG tablet Take 1 tablet (3 mg) by mouth before breakfast. 30 tablet 06/09/20 25 025 Discontinued(Do se adjustment) hydrOXYzine HCl (Atarax) 10 MG tablet TAKE ONE TABLET AT BEDTIME NEEDED FOR HIVES 30 tablet 06/10/20 25 025 Discontinued Active Problems Problem Noted Date Diagnosed Date Encounter for screening mamm ogram for malignant neoplasm of breast 01/21/2025 Assessment & Plan (01/21/2025 10:16 AM EDT): Patient wants to undergo mammogram test Encounter to establish care 12/21/2024 Assessment & Plan (12/21/2024 9:19 AM EST): Last pcp visit 1 year at [facility] ER: November due to vaginal bleeding, [...] & Plan (12/21/2024 12:28 PM EST): On piercexiga and normanuvia Primary hypertension 11/12/2017 Assessment & Plan (04/27/2025 [...] Encounters Date Type Department Care Team Description 07/08/2025 Travel 07/08/2025 Refill [facility] [address] [place] [address] Hernan Urbina MD 07/07/2025 Refill [facility] [address] [place] [address] Hernan Urbina MD 07/01/2025 Travel 06/20/2025 Telephone [facility] [address] [place] [address] Hernan Urbina MD Medication Question 06/10/2025 Refill [facility] [address] [place] [address] Smitha Salas, PharmD 06/09/2025 Travel 06/03/2025 Travel 05/31/2025 Telephone [facility] [address] [place] [address] Hernan Urbina MD Med Refill 05/25/2025 Telephone [facility] [address] [place] [address] Hernan Urbina MD 05/18/2025 Telephone [facility] [address] [place] [address] Hernan Urbina MD 05/16/2025 11:30 AM EDT Office Visit [facility] [address] [place] [address] Hernan Urbina MD Multiple joint pain (Primary Dx); Type 2 diabetes mellitus with diabetic peripheral angiopathy without gangrene, without long-term current use of insulin ([facility]) 05/16/2025 Orders Only [facility] [address] [place] [address] Hernan Urbina MD Type 2 diabetes mellitus with diabetic peripheral angiopathy without gangrene, without long-term current use of insulin ([facility]) (Primary Dx) 05/16/2025 Telephone [facility] [address] [place] [address] Smitha Salas, PharmD 05/16/2025 Refill [facility] [address] [place] [address] Hernan Urbina MD 05/16/2025 Travel 05/10/2025 Travel 05/09/2025 Refill [facility] [address] [place] [address] Hernan Urbina MD 05/09/2025 Telephone [facility] [address] [place] [address] Hernan Urbina MD Nurse Triage 05/06/2025 Orders Only [facility] External Provider, [facility] 05/03/2025 2:00 PM EDT Office Visit [facility] ADULT DENTAL [address] [place] [address] Domingo Spence Dental calculus (Primary Dx) 04/27/2025 10:15 AM EDT Telemedicine [facility] [address] [place] [address] Hernan Urbina MD Type 2 diabetes mellitus with diabetic peripheral angiopathy without gangrene, without long-term current use of insulin ([facility]) (Primary Dx); Primary hypertension 04/27/2025 Travel 04/26/2025 Telephone [facility] [address] [place] [address] Hernan Urbina MD chart prep 04/26/2025 Travel 04/20/2025 Travel 04/19/2025 Refill [facility] [address] [place] [address] Hernan Urbina MD from Last 3 Months Immunizations Immunization Administration [...] Sign Reading Time Taken Comments Blood Pressure 118/54 07/08/2025 2:19 PM EDT Pulse 77 07/08/2025 2:19 PM EDT Temperature 36.8 C (98.3 F) 05/16/2025 11:36 AM EDT Respiratory Rate 12 05/16/2025 11:36 AM EDT Oxygen Saturation 96% 07/08/2025 2:19 PM EDT Inhaled Oxygen Concentration - - Weight 59 kg (130 lb) 05/16/2025 11:36 AM EDT Height 151 cm (4' 11.45 ) 05/16/2025 11:36 AM ED T Body Mass Index 25.86 05/16/2025 11:36 AM EDT Plan of Treatment Upcoming Encounters Date Type Department Care Team (Late st Contact Info) Description 07/19/2025 1:00 PM EDT Telemedicine [facility] [address] [place] [address] Hernan Urbina MD [address] [place] [address] 08/08/2025 1:30 PM EDT Medication Management [facility] [address] [place], [place] [phone] Smitha Salas, PharmD [address] [place] [address] 11/04/2025 2:00 PM EST Office Visit [facility] ADULT DENTAL [address] [place] [address] Domingo Spence Health Maintenance Due Date Last [...] Zoster Vaccines (2 of 3) 07/25/2017 05/30/2017 Dental Oral Exam 02/12/2025 08/13/2024, 08/2024, 04/16/2023 COVID-19 Vaccine (3 - season) 2025 11/20/2021, 04/12/2021 Influenza Vaccine (#1) 2025 Dental X-Ray: Bitewings 08/14/2025 08/13/20, 06/17/2024, 04/16/2023 Diabetes: Hemoglobin A1C 08/16/2025 05/16/2025, 0311/2024 Dental Prophylaxis 11/04/2025 05/03/2025, 1 , 02/11/2024, [...] use of insulin (CMS/HCC) POCT GLUCOSE Routine 05/16/2025 11:43 AM EDT Type 2 diabetes mellitus with diabetic peripheral angiopathy without gangrene, without long-term current use of insulin (CMS/HCC) CT CERVICAL SPINE WO CONTRAST Routine 05/06/2025 [...] - 5.7 % QC Media Lot # Comment:[id number] Lot# Expiration Date Comment:11/04/2026 Blood 05/16/2025 11:4 4 AM EDT Hernan Aaron MD POINT OF CARE TEST ENTER/EDIT ORDERABLES Final Result * (ABNORMAL) POCT glucose manually resulted (05/16/2025 11:43 AM EDT) Glucose Blood, POC 293(A) 60 - 200 mg/dL QC Media Lot # Comment:[id number] Lot# Expiration Date Comment:09/01/2025 Blood Capillary blood specimen / Unknown 05/16/2025 11:43 AM EDT Hernan Aaron MD POINT OF CARE TEST ENTER/EDIT ORDERABLES Final Result * CT Cervical Spine w/o Contrast (05/06/2025 4:53 PM EDT) Anatomical Region Laterality Modality Spine, C-spine Computed Tomogra phy 05/06/2025 4:53 PM EDT Narrative 05/06/2025 4:54 PM EDT [address] [address] [address] Scan Report Signed Patient: Meena Hidalgo MR#: [id number] 061 : 1955 Acct:[id number] Age/Sex: 70 / F ADM Date: 05/06/25 Loc: HO.ED Attending Dr: Ordering Physician: Karla Ramos Date of Service: 05/06/25 Procedure(s): CT cervical spine wo IV con Accession Number(s): [id number] cc: Hernan Urbina MD; Karla Ramos Report Number: [id number]: Total DLP = 358.78 mGy-cm CLINICAL HISTORY: [...] in OV> 05/06/254 DD/ 52 TD/TT: 05/06/251652 Station Baggage Porter: Procedure Note Donotuseinterpreter, Image - 05/06/[address] [address] [address] Scan Report Signed Patient: Tiffanie Hidalgo#: [id number] 061 : 6Acct:[id number] Age/Sex: 70 / FADM Date: 05/06/25 Loc: HO.ED Attending Dr: Ordering Physician: Karla Ramos Date of Service: 05/06/25 Procedure(s): CT cervical spine wo IV con Accession Number(s): [id number] cc: Hernan Urbina MD; Karla Ramos Report Number: [id number]: Total DLP = 358.78 mGy-cm CLINICAL HISTORY: [...] by Carlos Suarez MD in OV> 05/06/25 1654 DD/ 52 TD/TT: 05/06/251652 Station Baggage Porter: [facility] External Provider IMG CT PROCEDURES Edited Result - Final * CT Head w/o Contrast (05/06/2025 4:51 PM EDT) Anatomical Region Laterality Modality Head, Neck Computed Tomogra phy 05/06/2025 4:51 PM EDT Narrative 05/06/2025 4:53 PM EDT [address] [address] [address] Scan Report Signed Patient: Meena Hidalgo MR#: [id number] 061 : 1955 Acct:[id number] Age/Sex: 70 / F ADM Date: 05/06/25 Loc: HO.ED Attending Dr: Ordering Physician: Karla Ramos Date of Service: 05/06/25 Procedure(s): CT head/brain wo IV con Accession Number(s): [id number] cc: Hernan Urbina MD; Karla Ramos Report Number: [id number]: Total DLP = 643.76 mGy-cm CLINICAL HISTORY: [...] by Carlos Suarez MD in OV> 05/06/25 1653 DD/ 1651 TD/TT: 05/06/25 1651 Station Baggage Porter: Procedure Note Donotuseinterpreter, Image - 05/06/[address] [address] [address] Scan Report Signed Patient: Ramin HidalgoR#: [id number] 061 : 1955cct:[id number] Age/Sex: 70 / FADM Date: 05/06/25 Loc: HO.ED Attending Dr: Ordering Physician: Karla Ramos Date of Service: 05/06/25 Procedure(s): CT head/brain wo IV con Accession Number(s): [id number] cc: Hernan Urbina MD; Karla Ramos Report Number: [id number]: Total DLP = 643.76 mGy-cm CLINICAL HISTORY: [...] by Carlos Suarez MD in OV> 05/06/25 165 DD/ 165 TD/TT: 05/06/251650 Station Baggage Porter: [facility] External Provider IMG CT PROCEDURES Edited Result - Final * XR Shoulder 2+ Views Right (05/06/2025 4:10 PM EDT) Anatomical Region Laterality Modality Upper Extremities, Shoulder Right Radi ographic Imaging 05/06/2025 4:10 PM EDT Narrative 05/06/2025 4:11 PM EDT [address] [address] XRay Report Signed Patient: Meena Hidalgo MR#: [id number] 061 : 1955 Acct:[id number] Age/Sex: 70 / F ADM Date: 05/06/25 Loc: HO.ED Attending Dr: Ordering Physician: Karla aRmos Date of Service: 05/06/25 Procedure(s): XR shoulder RT min 2V Accession Number(s): [id number] cc: Hernan Urbina MD; Karla Ramos CLINICAL [...] OV> 05/06/25 1611 DD/ 161 TD/TT: 05/06/25 1610 Station Baggage Porter: Procedure Note Donotuseinterpreter, Image - 05/06/2025 [place] [address] XRay Report Signed Patient: Tiffanie Hidalgo#: [id number] 061 : 6Acct:[id number] Age/Sex: 70 / FADM Date: 05/06/25 Loc: HO.ED Attending Dr: Ordering Physician: Karla Ramos Date of Service: 05/06/25 Procedure(s): XR shoulder RT min 2V Accession Number(s): [id number] cc: Hernan Urbina MD; Karla Ramos CLINICAL [...] 05/06/25 1611 DD/ 1610 TD/TT: 05/06/25 1610 Station Baggage Porter: [facility] External Provider IMG XR PROCEDURES Edited Result - Final * XR Elbow 1-2 Views Right (05/06/2025 4:09 PM EDT) Anatomical Region Laterality Modality Upper Extremities, Elbow Right Radiogr aphic Imaging 05/06/2025 4:09 PM EDT Narrative 05/06/2025 4:10 PM EDT [place] [address] XRay Report Signed Patient: Meena Hidalgo MR#: [id number] 061 : 1955 Acct:[id number] Age/Sex: 70 / F ADM Date: 05/06/25 Loc: HO.ED Attending Dr: Ordering Physician: Karla Ramos Date of Service: 05/06/25 Procedure(s): XR elbow RT 2V Accession Number(s): [id number] cc: Hernan Urbina MD; Karla Ramos CLINICAL [...] 05/06/25 1610 DD/ 1609 TD/TT: 05/06/25 1609 Station Baggage Porter: Procedure Note Donmessi, Image - 05/06/[address] [address] XRay Report Signed Patient: Tiffanie Hidalgo#: [id number] 061 : 6Acct:[id number] Age/Sex: 70 / FADM Date: 05/06/25 Loc: HO.ED Attending Dr: Ordering Physician: Karla Ramos Date of Service: 05/06/25 Procedure(s): XR elbow RT 2V Accession Number(s): [id number] cc: Hernan Urbina MD; Karla Ramos CLINICAL [...] 05/06/25 1610 DD/ 1609 TD/TT: 05/06/25 1609 Station Baggage Porter: [facility] External Provider IMG XR PROCEDURES Edited Result - Final * BI Mammogram Screening Tomosynthesis Bilateral (03/22/2025 9:45 AM EDT) Anatomical Region Laterality Modality Breast Bilateral Mammography 03/22/2025 9:45 AM EDT Narrative 03/28/2025 9:15 PM EDT [address] [place] [address] Mammography Report Signed Patient: Meena Hidalgo MR#: [id number] 061 : 1955 Acct:[id number] Age/Sex: 70 / F ADM Date: 03/22/25 Loc: HO.MAMMO Attending Dr: Hernan Aaron MD Ordering Physician: Hernan Urbina MD Res ults: 1Negative Date of Service: 03/22/25 Follow Up: 1 Year From Orig ina Mammogram Procedure(s): MM tomosynthesis screening BI Accession Number(s): [id number] cc: Hernan Urbina MD EXAMINATION: MM SCREENING [...] signed by Denise Fernandez DO in OV> 03/28/25 2112 DD/ 0945 TD/TT: 03/22/25 1007 Station Baggage Porter: Procedure Note Donotuseinterpreter, Image - 03/28/2025 [place] [facility] [address] [place] [address] Mammography Report Signed Patient: Ramin HidalgoR#: [id number] 061 : 6Acct:[id number] Age/Sex: 70 / FADM Date: 03/22/25 Loc: HO.MAMMO Attending Dr: Hernan Aaron MD Ordering Physician: Hernan Urbina ults: 1Negative Date of Service: 03/22/25Follow Up: 1 Year From Orig inal Mammogram Procedure(s): MM tomosynthesis screening BI Accession Number(s): [id number] cc: Hernan Urbina MD EXAMINATION: MM SCREENING [...] signed by Denise Fernandez DO in OV> 03/28/25 2112 DD/ 0945 TD/TT: 03/22/25 1007 Station Baggage Porter: Hernan Aaron MD IMG BI PROCEDURES Edited Result - Final * (ABNORMAL) Albumin, Random Urine W/Creatinine (01/21/2025 10:40 AM EDT) Creatinine, Urine 72.43 mg/dL [facility] Microalbumin Urine 27.0 mg/L [facility] Microalbum Creatinine Ratio Ur 37.2(H) <30 ug/mg cr [facility] Comment:Albumin/Creatinine R atio Reference Ranges: Normal: < 30 ug/mg creatinine Microalbuminuria: 30 - 300 ug/mg creatinineClinical Albuminuria: > 300 ug/mg creatinine Urine (Urine, Random) 01/21/2025 10:40 AM EDT 01/21/2025 2:08 PM EDT us Hernan Aaron MD LAB URINE ORDERABL ES Final Result [facility] [address] [place] [address] [phone] * (ABNORMAL) Lipid Panel, Standard (01/21/2025 10:39 AM EDT) Triglycerides 159(H) <150 mg/dL [facility] Comment:Desirable Triglyceri de: less than 150 mg/dLBorderline High Triglyceride 150-199 mg/dLHigh Triglyceride: 200-499 mg/dLVery High Triglyceride: greater than or equal to 5OO mg/dL Cholesterol 332(H) <200 mg/dL [facility] Comment:Desirable Cholestero l: less than 200 mg/dLBorderline High Cholesterol: 200-239 mg/dLHigh Cholesterol: greater than 239 mg/dL LDL Cholesterol Calculated 247(H) <100 mg/dL [facility] Comment:Desirable LDL: less than 100 mg/dLNear Optimal/Above Optimal LDL: 110- 129 mg/dLBorderline High LDL: 130-159 mg/dLHigh LDL: 160-189 mg/dLVery High LDL: greater than or equal to 190 mg/dL HDL Cholesterol 54 >40 mg/dL [facility] Comment:Desirable HDL: great er than 40 mg/dL Note: This HDL assay may give artificially low results in patients with liver disease. Blood Venous blood specimen / Unknown 01/21/2025 10:39 AM EDT 01/21/2025 2:05 PM EDT us Hernan Aaron MD LAB BLOOD ORDERABL ES Final Result Performing Organization Address City/[facility]/ZIP Co de Phone Number [facility] [address] [place] [address] [phone] * Hepatitis C Antibody with Reflex to HCV, RNA, Quantitative, Real-Time PCR (01/21/2025 10:34 AM EDT) Hepatitis C Antibody Nonreactive Nonreactive [facility] Comment:Antibodies to HCV no t detected; does not exclude early acuteHCV infection. Blood Venous blood specimen / Unknown 01/21/2025 10:34 AM EDT 01/21/2025 2:05 PM EDT Hernan Aaron MD LAB BLOOD ORDERABL ES Final Result Performing Organization Address [facility] Co de Phone Number [facility] [address] [place] [address] [phone] from Last 3 Months or Most Recently Relevant to Health Maintenance Insurance [facility] OPTIONS (O D-SNP) [facility] - [facility] Care Teams Tank Truck Driver Relationship Specialty Start Date End Date Hernan Urbina MD [address] [place] [id number] PCP - General Internal Medicine 01/21/25 Smitha Salas PharmD [address] [place] [address] Pharmacist Pharmacy 06/09/25
--- OUTSIDE RECORDS SUMMARY | 2025-07-12 16:33 | XMS_ITS | Encounter Summary ---
Author Organization [email or web address] Address [address] [facility] 7t [place] [address] Care Team Providers Care Bellhop Captain Name Role Phone Hernan Urbina MD Primary Care Prov ider Smitha Salas PharmD Unavailable [phone] Reason for Visit * Reason Onset Date Comments Med Refill 05/31/2025 Encounter Details Date Type Department Care Team ([facility] Contact Info) Description 05/31/2025 Telephone [facility] [address] [place] [address] Hernan Urbina MD [address] [place] [address] Med Refill Social History Tobacco Use Types [...] - 05/31/2025 3:27 PM EDT TC from [facility] requesting medication refill. Medications needing refill : dapagliflozin (Farxiga) 10 MG fluticasone (Flovent HFA) 110 MCG/ACT inhaler Ventolin HFA 108 (90 Base) MCG/ACT inhaler glucose blood (FREESTYLE LITE) test strip Lancets To be sent to: [facility] - [place], [place] - [address] [place] [address] documented in this encounter Plan of Treatment Upcoming Encounters Date Type Department Care Team (Late st Contact Info) Description 07/19/2025 1:00 PM EDT Telemedicine [facility] [address] [place] [address] Hernan Urbina MD [address] [place] [address] 08/08/2025 1:30 PM EDT Medication Management [facility] [address] [place] [address] Smitha Salas PharmD [address] [place] [address] 11/04/2025 2:00 PM EST Office Visit [facility] ADULT DENTAL [address] [place] [address] Domingo Spence documented as of this encounter Visit Diagnoses Not on filedocumented in this encounter Additional Health Concerns Assessment Noted Time PHQ-9 Depression Total Score: 2 12/21/19 8:57 AM EST documented as of this encounter Care Teams Bellhop Captain Relationship Specialty Start Date End Date Hernan Urbina MD [address] [place] [address] PCP - General Internal Medicine 01/21/25 Smitha Salas PharmD [address] [place] [address] Pharmacist Pharmacy 06/09/25 documented as of this encounter
--- OUTSIDE RECORDS SUMMARY | 2025-07-12 16:33 | XMS_ITS | Encounter Summary ---
Author Organization [employer] Address [address] [facility] 7t [place] [address] Care Team Providers Care Diagnostic Imaging Manager Name Role Phone Hernan Urbina MD Primary Care Prov ider Smitha Salas PharmD Unavailable [phone] Reason for Referral * Consultation (Routine) - Canceled Specialty Diagnoses / Procedures Referred By Contac t Referred To Contact Pharmacy Diagnoses Primary hypertension Hernan Urbina MD [address] [place] [address] Phone: tel: fax: Referral ID Status Reason Start Date Expiration Date V isits Requested Visits Authorized [id number] Canceled Continuity of Care 05/17/2025 05/17/2026 6 6 Encounter Details Date Type Department Care Team ([facility] st Contact Info) Description 04/05/2025 Orders Only [facility] [address] [place], [place] [phone] Hernan Urbina MD [address] [place], [place] [phone] Primary hypertension (Primary Dx) Social History Tobacco [...] Info) Description 07/19/2025 1:00 PM EDT Telemedicine [facility] MED & PEDS [address] [place] [address] Hernan Urbina MD [address] [place] [address] 08/08/2025 1:30 PM EDT Medication Management [facility] MED & PEDS [address] [place] [address] Smitha Salas, PharmD [address] [place] [address] 11/04/2025 2:00 PM EST Office Visit [facility] ADULT DENTAL [address] [place] [address] Domingo Spence Scheduled Referrals Name Type Priority [...] documented as of this encounter Care Teams Diagnostic Imaging Manager Relationship Specialty Start Date End Date Hernan Urbina MD [address] [place] [address] PCP - General Internal Medicine 01/21/25 Smitha Salas PharmD [address] [place] [address] Pharmacist Pharmacy 06/09/25 documented as of this encounter
--- OUTSIDE RECORDS SUMMARY | 2025-07-12 16:33 | XMS_ITS | Encounter Summary ---
Author Organization [employer] [facility] Address [address] [place] [address] 7t [place] [address] Care Team Providers Care Rn Long Term Care Name Role Phone Hernan Urbina MD Primary Care Prov ider Smitha Salas PharmD Unavailable [phone] Reason for Visit * Reason Comments Med Refill Encounter Details Date Type Department Care Team ([facility] Contact Info) Description 09/12/2023 Refill [facility] MED & PEDS [address] [place] [address] Christopher Spence MD [address] [place] [address] Social History Tobacco Use Types Packs/Day Years [...] Upcoming Encounters Date Type Department Care Team ([facility] Contact Info) Description 07/19/2025 1:00 PM EDT Telemedicine [facility] [address] [place] [address] Hernan Urbina MD [address] [place] [address] 08/08/2025 1:30 PM EDT Medication Management [facility] MED & PEDS [address] [place] [address] Smitha Salas PharmD [address] [place] [address] 11/04/2025 2:00 PM EST Office Visit [facility] ADULT DENTAL [address] [place] [address] Domingo Spence documented as of this encounter Visit Diagnoses Not on filedocumented in this encounter Care Teams Rn Long Term Care Relationship Specialty Start Date End Date Hernan Urbina MD [address] [place] [address] PCP - General Internal Medicine 01/21/25 Smitha Salas, JessD [address] [place] [address] Pharmacist Pharmacy 06/09/25 documented as of this encounter
--- OUTSIDE RECORDS SUMMARY | 2025-07-12 16:33 | XMS_ITS | Encounter Summary ---
Author Organization [employer] Address [address] [facility] [address] 7[address] [place] [address] Care Team Providers Care Creative Art Therapist Name Role Phone Hernan Urbina MD Primary Care Prov ider Smitha Salas PharmD Unavailable [phone] Encounter Details Date Type Department Care Team (Late st Contact Info) Description 01/24/2025 Orders Only [facility] MED [facility] PEDS [address] [place] [address] Hernan Urbina MD [address] [place] [address] Social History Tobacco Use Types Packs/Day Years [...] Info) Description 07/19/2025 1:00 PM EDT Telemedicine [facility] MED & PEDS [address] [place] [address] Hernan Urbina MD [address] [place] [address] 08/08/2025 1:30 PM EDT Medication Management [facility] MED & PEDS [address] [place] [address] Smitha Salas, PharmD [address] [place] [address] 11/04/2025 2:00 PM EST Office Visit [facility] ADULT DENTAL [address] [place] [address] Domingo Spence documented as of this encounter Visit Diagnoses Not on filedocumented in this encounter Additional Health Concerns Assessment Noted Time PHQ-9 Depression Total Score: 2 12/21/19 8:57 AM EST documented as of this encounter Care Teams Creative Art Therapist Relationship Specialty Start Date End Date Hernan Urbina MD [address] [place] [address] PCP - General Internal Medicine 01/21/25 Smitha Salas, PharmD [address] [place] [address] Pharmacist Pharmacy 06/09/25 documented as of this encounter
--- OUTSIDE RECORDS SUMMARY | 2025-07-12 16:33 | XMS_ITS | Encounter Summary ---
Author Organization [employer] [facility] Address 75 [facility] 7t [place] [address] Care Team Providers Care Ct Scan Technician Name Role Phone Hernan Urbina MD Primary Care Prov ider Smitha Salas PharmD Unavailable [phone] Encounter Details Date Type Department Care Team (Latest Contact Info) Description 04/14/2019 Abstract [facility] CONVERSIONS Dental, Provider, DDS Social History [...] Info) Description 07/19/2025 1:00 PM EDT Telemedicine [facility] [address] [place] [address] Hernan Urbina MD 505 [place] [address] 08/08/2025 1:30 PM EDT Medication Management [facility] [address] [place], [place] [phone] Smitha Salas, PharmD 230 [place] [address] 11/04/2025 2:00 PM EST Office Visit [facility] [address] [place], [place] [phone] Domingo Spence documented as of this encounter Visit Diagnoses Not on filedocumented in this encounter Care Teams Ct Scan Technician Relationship Specialty Start Date End Date Hernan Urbina MD [address] [place] [address] PCP - General Internal Medicine 01/21/25 Smitha Salas PharmD [address] [place] [address] Pharmacist Pharmacy 06/09/25 documented as of this encounter
--- OUTSIDE RECORDS SUMMARY | 2025-07-12 16:33 | XMS_ITS | Encounter Summary ---
Author Organization [employer] [facility] Address 75 [facility] 7t [place] [address] Care Team Providers Care Plant Wrapper Name Role Phone Hernan Urbina MD Primary Care Prov ider Smitha Salas PharmD Unavailable [phone] Encounter Details Date Type Department Care Team (Latest Contact Info) Description 04/15/2022 Abstract [facility] CONVERSIONS Dental, [...] Info) Description 07/19/2025 1:00 PM EDT Telemedicine [facility] MED [facility] 505 [place] [address] Hernan Urbina MD 505 [place] [address] 08/08/2025 1:30 PM EDT Medication Management [facility] MED [facility] [address] [place], [place] [phone] Smitha Salas, PharmD [address] [place] [address] 11/04/2025 2:00 PM EST Office Visit [facility] ADULT [facility] 505 [place] [address] Domingo Spence documented as of this encounter Visit Diagnoses Not on filedocumented in this encounter Care Teams Plant Wrapper Relationship Specialty Start Date End Date Hernan Urbina MD [address] [place] [address] PCP - General Internal Medicine 01/21/25 Smitha Salas PharmD [address] [place] [address] Pharmacist Pharmacy 06/09/25 documented as of this encounter
--- OUTSIDE RECORDS SUMMARY | 2025-07-12 16:33 | XMS_ITS | Encounter Summary ---
Author Organization [employer] Address 75 [facility] 7t [place] [address] Care Team Providers Care Yarder Engineer Name Role Phone Hernan Urbina MD Primary Care Prov ider Smitha Salas PharmD Unavailable [phone] Reason for Visit * Reason Comments Med Refill Encounter Details Date Type Department Care Team ([facility] st Contact Info) Description 07/08/[address] [facility] MED & PEDS 505 [place], [place] [phone] Hernan Urbina MD 505 [place] [address] Social History Tobacco Use Types Packs/Day Years [...] Telemedicine [facility] [address] [place] [address] Hernan Urbina MD 505 [place] [address] 08/08/2025 1:30 PM EDT Medication Management [facility] [address] [place] [address] Smitha Salas, PharmD 230 [place], [place] [phone] 11/04/2025 2:00 PM EST Office Visit [facility] 505 [place] [address] Domingo Spence documented as of this encounter Visit Diagnoses Not on filedocumented in this encounter Additional Health Concerns Assessment Noted Time PHQ-9 Depression Total Score: 2 12/21/19 25 8:57 AM EST documented as of this encounter Care Teams Yarder Engineer Relationship Specialty Start Date End Date Hernan Urbina MD 505 [place] [address] PCP - General Internal Medicine 3/21/25 Smitha Salas, JessD [address] [place] [address] Pharmacist Pharmacy 06/09/25 documented as of this encounter
== END 2025-07-12 14:44 | disposition home or self-care (01) ==
LOC: HO.HUSH 13:53
PROVIDERS: Visit Provider Urology
DX: N32.81 Overactive bladder (principal); C67.9 Malignant neoplasm of bladder, unspecified; Z13.9 Encounter for screening, unspecified
CPT/HCPCS: 52000; 99214

== ENCOUNTER → 2025-07-12 13:53 | Outpatient (BNVA) | payer OTHER, SELFPAY | PROVIDERS: Visit Provider Urology | DX: N32.81 Overactive bladder (principal); C67.9 Malignant neoplasm of bladder, unspecified; N39.46 Mixed incontinence | CPT/HCPCS: 52000; 81003; 99212 ==

== ENCOUNTER 2025-08-04 15:19 | Outpatient (REF) | payer OTHER, SELFPAY ==
--- OUTSIDE RECORDS SUMMARY | 2024-11-19 08:30 | XMS_ITS ---
Author Organization [facility] Address [address] [place] [address] Care Team Providers Care Transfer Engineer Name Role Phone Hernan Wasserman Primary Care Provider Unavailable Kathrine Cheema Unavailable [phone] REASON FOR VISIT r/s for sooner apt Encounters Encounter Location Date Provider Diagnosis [facility] [address] [place] [address] 11/19/2024 Kathrine Cheema Plan Of Treatment Next Appt Details Provider Name:Kathrine armando, 09/13/2025 03:30:00 PM, [address] [place], [address], Progress Notes * Judie TOLLIVERB:[birth year] (70 yo F)Acc No.[id number]:11/19/2024 Progress Note Patient: Lucien MCCONNELLTabby Meena Provider: Gretchen Cheema DPM :1955 A ge:69 Y S ex:Female Date:11/19/2024 Address:[address] [place] [address], [address], [id number] Pcp:Hernan wu Subjective: * Chief Complaints: * [...] 0 11/19/2024 Generated for Osmar Carr/Bridgett on: 11:40 AM EDT
--- OUTSIDE RECORDS SUMMARY | 2025-08-04 14:45 | XMS_ITS | Encounter Summary ---
Author Organization [employer] Address [address] [facility] 7t [place] [address] Care Team Providers Care Directory Compiler Name Role Phone Hernan Urbina MD Primary Care Prov ider Smitha Salas PharmD Unavailable Encounter Details Date Type Department Care Team ([facility] st Contact Info) Description 08/04/2025 2:45 PM EDT Office Visit [facility] [address] [place] [address] Stanley Miller CNP 505 [place] [address] Chronic right-sided low back pain with right-sided sciatica (Primary Dx); Type 2 diabetes mellitus with diabetic peripheral angiopathy without gangrene, without long-term current use of insulin (HCC) Social History Tobacco Use Types Packs/Day Years [...] Sign Reading Time Taken Comments Blood Pressure 124/66 08/04/2025 2:37 PM EDT Pulse 80 08/04/2025 2:37 PM EDT Temperature 36.7 C (98.1 F) 08/04/2025 2:37 PM EDT Respiratory Rate 12 08/04/2025 2:37 PM EDT Oxygen Saturation 98% 08/04/2025 2:37 PM EDT Inhaled Oxygen Concentration - - Weight 57.2 kg (126 lb) 08/04/2025 2:37 PM EDT Height 151 cm (4' 11.45 ) 08/04/2025 2:37 PM EDT Body Mass Index 25.07 08/04/2025 2:37 PM EDT documented in this encounter Plan of Treatment Upcoming Encounters Date Type Department Care Team (Late st Contact Info) Description 08/08/2025 1:30 PM EDT Medication Management [facility] [address] [place] [address] Smitha Salas, PharmD 230 [place] [address] 11/04/2025 2:15 PM EST Office Visit [facility] [address] [place] [address] Domingo Spence Scheduled Orders Name Type Priority Associated Diagnoses Orde r Schedule CBC auto differential Lab Routine Chronic right-sided low back pain with right-sided sciatica Expected: 08/04/2025 (Approximate), Expires: 08/04/2026 Sed Rate by Modified Westergren Lab Routine Chronic right-sided low back pain with right-sided sciatica Expected: 08/04/2025, Expires: 08/04/2026 C-reactive Protein Lab Routine Chronic right-sided low back pain with right-sided sciatica Expected: 08/04/2025 (Approximate), Expires: 08/04/2026 XR Lumbar Spine 2-3 Views Imaging Routine Chronic right-sided low back pain with right-sided sciatica Expected: 08/04/2025, Expires: 08/04/2026 documented as of this encounter Procedures Procedure Name Priority Date/Time Associated Diagnosis Comments POCT GLUCOSE Routine 08/04/2025 3:03 PM EDT Type 2 diabetes mellitus with diabetic peripheral angiopathy without gangrene, without long-term current use of insulin (HCC) POCT URINALYSIS DIPSTICK Routine 08/04/2025 3:03 PM EDT Chronic right-sided low back pain with right-sided sciatica POCT GLYCATED HEMOGLOBIN, TOTAL Routine 08/04/2025 3:02 PM EDT Type 2 diabetes mellitus with diabetic peripheral angiopathy without gangrene, without long-term current use of insulin (HCC) documented in this encounter Results * (ABNORMAL) POCT urinalysis dipstick manually resulted (08/04/2025 3:03 PM EDT) Color, UA Yellow Clarity, UA Clear Glucose, UA Many Comment:1000 mg/dL Bilirubin, UA Negative Ketones, UA Negative Spec Grav, UA 1.010 Blood, UA Negative Negative, None Detected pH, UA 5.5 Protein, UA Negative Urobilinogen, UA 0.2 Leukocytes, UA Negative Negative, Rare, Trace Nitrite, UA Negative Negative, None Detected Appearance, UA clear QC Media Lot # Comment:[id number] Lot# Expiration Date Comment:05/02/2026 Urine 08/04/2025 3:03 PM EDT Result [facility] POINT OF CARE TEST ENTER/ EDIT ORDERABLES Final Result * (ABNORMAL) POCT glucose manually resulted (08/04/2025 3:03 PM EDT) Glucose Blood, POC 286(A) 60 - 200 mg/dL QC Media Lot # Comment:[id number] Lot# Expiration Date Comment:10/22/2025 Blood Capillary blood specimen / Unknown 08/04/2025 3:03 PM EDT Result [facility] POINT OF CARE TEST ENTER/ EDIT ORDERABLES Final Result * (ABNORMAL) POCT A1c (08/04/2025 3:02 PM EDT) Hemoglobin A1C 11.8(A) 4.0 - 5.7 % QC Media Lot # Comment:[id number] Lot# Expiration Date Comment:02/24/2027 Blood 08/04/2025 3:02 PM EDT Result [facility] POINT OF CARE TEST ENTER/ EDIT ORDERABLES Final Result documented in this encounter Visit Diagnoses Diagnosis Chronic right-sided low back pain with right-sided sciatica- Primary Type 2 diabetes mellitus with diabetic peripheral angiopathy without gangrene, without long-term current use of insulin (HCC) documented in this encounter Additional Health Concerns Assessment Noted Time PHQ-9 Depression Total Score: 2 12/21/19 25 8:57 AM EST documented as of this encounter Care Teams Directory Compiler Relationship Specialty Start Date End Date Hernan Urbina MD [address] [place] [address] PCP - General Internal Medicine 01/21/25 Smitha Salas PharmD [address] [place] [address] Pharmacist Pharmacy 06/09/25 documented as of this encounter
--- OUTSIDE RECORDS SUMMARY | 2025-08-04 16:39 | XMS_ITS | Encounter Summary ---
Author Organization [employer] Address 75 [facility] 7t [place] [address] Care Team Providers Care Aerial Gunner Name Role Phone Hernan Urbina MD Primary Care Prov ider Smitha Salas PharmD Unavailable [phone] Reason for Visit * Reason Onset Date Comments Nurse Triage 08/04/2025 Encounter Details Date Type Department Care Team ([facility] st Contact Info) Description 08/04/2025 Telephone [facility] MED & PEDS [address] [place] [address] Hernan Urbina MD [address] [place] [address] Nurse Triage Social History Tobacco Use Types Packs/Day Years [...] encounter Miscellaneous Notes * Telephone Encounter - Damaris Gonzalez RN - 08/04/2025 11:07 AM EDT Symptoms: Back Pain - Not From Injury, Abdominal Pain - Female - Not Outcome: Schedule an urgent appointment (within 4 hours) or talk to a nurse or provider soon Reason: Getting worse The caller accepted this outcome. Contact pt at [phone] (qatari) Called pt. Via [employer] key account coordinator [phone] Simone. Pt. States that she has been having pain on her rightside of lower abdomen near ovaries and on lower back x 3 weeks. She states she already discussed this with PCP. He prescribed pt. Tylenol and Oxycodone with no relief. Pt. States that she has bladdercancer and is on Chemotherapy. Pt. Is urinating WNL- no blood. Pt. Has not had any US of lower right side of abdomen or right side of back. Appointment made in [facility] for 245pm due to pt. Low immune system and I don't want pt. Sitting in ED. No vomiting, no nausea and no diarrhea. BM's WNL. Protocol Used: Abdominal Pain - Female (Adult) Protocol-Based Disposition: Go to ED/UCC Now (or to Office Now per Policy) Appointment. 245 pm today in 30 minute slot so that provider can spend more time due to pt. Currently has bladder cancer. Positive Triage Questions: * Mild to Moderate constant pain lasting > 2 hours * Mild to Moderate constant pain and age > 60 years * Abdominal pain is a chronic symptom (recurrent or ongoing AND lasting > 4 weeks) * All higher-acuity triage questions were negative Care Advice Discussed: * Drink Clear Fluids * Telephone Encounter - Paola Wilson - 08/04/2025 10:35 AM EDT Symptoms: Back Pain - Not From Injury, Abdominal Pain - Female - Not Outcome: Schedule an urgent appointment (within 4 hours) or talk to a nurse or provider soon Reason: Getting worse The caller accepted this outcome. Contact pt at [phone] (qatari) documented in this encounter Plan of Treatment Upcoming Encounters Date Type Department Care Team (Late st Contact Info) Description 08/08/2025 1:30 PM EDT Medication Management [facility] MED & PEDS [address] [place] [address] Smitha Salas PharmD [address] [place] [address] 11/04/2025 2:15 PM EST Office Visit [facility] ADULT DENTAL [address] [place] [address] Domingo Spence documented as of this encounter Visit Diagnoses Not on filedocumented in this encounter Additional Health Concerns Assessment Noted Time PHQ-9 Depression Total Score: 2 12/21/19 25 8:57 AM EST documented as of this encounter Care Teams Aerial Gunner Relationship Specialty Start Date End Date Hernan Urbina MD [address] [place] [address] PCP - General Internal Medicine 01/21/25 Smitha Salas, PharmD [address] [place], [place] [phone] Pharmacist Pharmacy 06/09/25 documented as of this encounter
--- OUTSIDE RECORDS SUMMARY | 2025-08-04 16:39 | XMS_ITS | Encounter Summary ---
Author Organization [employer] Address [address] [facility] [address] 7t [place] [address] Care Team Providers Care Liquid Fertilizer Servicer Name Role Phone Hernan Urbina MD Primary Care Prov ider Smitha Salas PharmD Unavailable [phone] Encounter Details Date Type Department Care Team (Latest Contact Info) Description 08/04/2025 Travel Social History Tobacco Use Types Packs/Day [...] Medication Management [facility] MED & PEDS 505 [place] [address] Smitha Salas PharmD [address] [place] [address] 11/04/2025 2:15 PM EST Office Visit [facility] ADULT DENTAL [address] [place] [address] Domingo Spence documented as of this encounter Visit Diagnoses Not on filedocumented in this encounter Additional Health Concerns Assessment Noted Time PHQ-9 Depression Total Score: 2 12/21/19 8:57 AM EST documented as of this encounter Care Teams Liquid Fertilizer Servicer Relationship Specialty Start Date End Date Hernan Urbina MD [address] [place] [address] PCP - General Internal Medicine 01/21/25 Smitha Salas PharmD [address] [place] [address] Pharmacist Pharmacy 06/09/25 documented as of this encounter
--- OUTSIDE RECORDS SUMMARY | 2025-08-04 16:39 | XMS_ITS | Encounter Summary ---
Author Organization [employer] Address 75 [facility] 7t [place] [address] Care Team Providers Care Law Tutor Name Role Phone Hernan Urbina MD Primary Care Prov ider Smitha Salas PharmD Unavailable [phone] Reason for Visit * Reason Comments Med Refill Encounter Details Date Type Department Care Team ([facility] st Contact Info) Description 08/02/2025 Refill [facility] MED & PEDS [address] [place], [place] [phone] Christopher Spence MD [address] [place] [address] Social History Tobacco Use Types Packs/Day Years [...] [facility] [address] [place] [address] Smitha Salas, PharmD [address] [place] [address] 11/04/2025 2:15 PM EST Office Visit [facility] AD[facility] DENT[facility] [address] [place] [address] Domingo Spence documented as of this encounter Visit Diagnoses Not on filedocumented in this encounter Additional Health Concerns Assessment Noted Time PHQ-9 Depression Total Score: 2 12/21/19 8:57 AM EST documented as of this encounter Care Teams Law Tutor Relationship Specialty Start Date End Date Hernan Urbina MD [address] [place] [address] PCP - General Internal Medicine 01/21/25 Smitha Salas, PharmD [address] [place] [address] Pharmacist Pharmacy 06/09/25 documented as of this encounter
--- OUTSIDE RECORDS SUMMARY | 2025-08-04 16:39 | XMS_ITS | Encounter Summary ---
Author Organization [employer] [facility] Address [address] [facility] [address] 7[address] [place] [address] Care Team Providers Care Pharmacy Benefits Coordinator Name Role Phone Hernan Urbina MD Primary Care Prov ider Smitha Salas PharmD Unavailable [phone] Encounter Details Date Type Department Care Team (Late st Contact Info) Description 11/15/2024 Telephone [facility] ADULT DENTAL [address] [place], [place] [phone] Neha Felder DMD Social History Tobacco Use [...] Department Care Team (Late Contact Info) Description 08/08/2025 1:30 PM EDT Medication Management [facility] CHC MED & PEDS [address] [place], [place] [phone] Smitha Salas, PharmD [address] [place] [address] 11/04/2025 2:15 PM EST Office Visit [facility] CHC ADULT DENTAL 505 [place] [address] Domingo Spence documented as of this encounter Visit Diagnoses Not on filedocumented in this encounter Care Teams Pharmacy Benefits Coordinator Relationship Specialty Start Date End Date Hernan Urbina MD [address] [place] [address] PCP - General Internal Medicine 01/21/25 Smitha Salas PharmD [address] [place] [phone] Pharmacist Pharmacy 06/09/25 documented as of this encounter
--- OUTSIDE RECORDS SUMMARY | 2025-08-04 16:39 | XMS_ITS | Clinical Summary ---
Author Organization [employer] Address [address] [facility] [address] 7t [place] [address] Care Team Providers Care Spinner Fixer Name Role Phone Hernan Urbina MD Primary Care Prov ider Smitha Salas PharmD Unavailable [phone] Allergies Active Allergy Reactions Criticality Noted Date [...] cream APPLY TO FEET TWICE DAILY 04/04/20 Active semaglutide (Rybelsus) 7 MG tablet Take 1 tablet (7 mg) by mouth before breakfast. 30 tablet 2 06/09/20 25 Active Farxiga 10 MG TAKE 1 TABLET BY MOUTH EVERY MORNING 90 tablet 07/08/20 25 Active hydrOXYzine HCl (Atarax) 10 MG tablet TAKE ONE TABLET EVERY EVENING NEEDED FOR HIVES 30 tablet 08/03/20 25 Active oxyCODONE-riccardo taminophen (Percocet) 5-325 MG tabletIndicat ions:Chronic right-sided low back pain with right-sided sciatica Take 1 tablet by mouth every 6 (six) hours if needed for severe pain for up to 5 days. 15 tablet 08/04/20 25 Active repaglinide (Prandin) 2 MG tablet [...] HIVES 30 tablet 06/10/20 25 025 Discontinued hydrOXYzine HCl (Atarax) 10 MG tablet TAKE ONE TABLET EVERY EVENING NEEDED FOR HIVES 30 tablet 07/07/20 25 025 Discontinued lidocaine-hemant locaine (Emla) 2.5-2.5 % cream Apply topically 1 (one) time for 1 dose. 90 g 11 07/19/20 25 025 Active Problems Problem Noted Date Diagnosed Date Encounter for screening mamm ogram for malignant neoplasm of breast 01/21/2025 Assessment & Plan (01/21/2025 10:16 AM EDT): Patient wants to undergo mammogram test Encounter to establish care 12/21/2024 Assessment & Plan (12/21/2024 9:19 AM EST): Last pcp visit 1 year at [facility] ER: November due to vaginal bleeding, back pain [facility]: 6 years ago due to CA s/p stent x2 Pmhx: DM, HTN, Cholesterol, CA s/p stent x2, CHF, atrial fibrillation Pshx: rotary cuff left arm 2004, csec , hand CTS right 2004, right trigger finger 2009 Meds: as above Chronic diastolic heart failure 12/21/2024 Assessment & Plan (12/21/2024 12:17 PM EST): Followed by cardiology, no recent exacerbation or hospitalization Paroxysmal atrial fibrillation (CMS/HCC) 025 Assessment & Plan (12/21/2024 12:28 PM EST): [...] januvia Primary hypertension 11/12/2017 Assessment & Plan (07/19/2025 1:23 PM EDT): Controlled, keep low sodium diet and exercise as tolerated, keep bp log, target <130/80. Assessment & Plan (04/27/2025 1:16 PM EDT): [...] Encounters Date Type Department Care Team Description 08/04/2025 2:45 PM EDT Office Visit [facility] MED & PEDS [address] [place] [address] Stanley Miller CNP Chronic right-sided low back pain with right-sided sciatica (Primary Dx); Type 2 diabetes mellitus with diabetic peripheral angiopathy without gangrene, without long-term current use of insulin ([facility]) 08/04/2025 Travel 08/04/2025 Telephone [facility] MED & PEDS [address] [place] [address] Hernan Urbina MD Nurse Triage 08/02/2025 Refill [facility] MED & PEDS [address] [place] [address] Christopher Spence MD 08/01/2025 Travel 07/19/2025 1:00 PM EDT Telemedicine [facility] MED & PEDS [address] [place] [address] Hernan Urbina MD Primary hypertension (Primary Dx); Type 2 diabetes mellitus with diabetic peripheral angiopathy without gangrene, without long-term current use of insulin ([facility]/HCC); Screening for colon cancer 07/19/2025 Travel 07/18/2025 Telephone [facility] MED & PEDS [address] [place] [address] Hernan Urbina MD CHART PREP 07/08/2025 Travel 07/08/2025 Refill [facility] CHC MED & PEDS [address] [place] [address] Hernan Urbina MD 07/07/2025 Refill [facility] CHC MED & PEDS [address] [place] [address] Hernan Urbina MD 07/01/2025 Travel 06/20/2025 Telephone [facility] MED & PEDS [address] [place] [address] Hernan Urbina MD Medication Question 06/10/2025 Refill [facility] MED & PEDS [address] [place] [address] Smitha Salas, PharmD 06/09/2025 Travel 06/03/2025 Travel 05/31/2025 Telephone [facility] MED & PEDS [address] [place] [address] Hernan Urbina MD Med Refill 05/25/2025 Telephone [facility] MEDICINE [address] [place] [address] Hernan Urbina MD 05/18/2025 Telephone [facility] MEDICINE [address] [place] [address] Hernan Urbina MD 05/16/2025 11:30 AM EDT Office Visit [facility] CHC MED & PEDS [address] [place] [address] Hernan Urbina MD Multiple joint pain (Primary Dx); Type 2 diabetes mellitus with diabetic peripheral angiopathy without gangrene, without long-term current use of insulin (CMS/HCC) 05/16/2025 Orders Only [facility] CHC MED & PEDS [address] [place] [address] Hernan Urbina MD Type 2 diabetes mellitus with diabetic peripheral angiopathy without gangrene, without long-term current use of insulin (CMS/HCC) (Primary Dx) 05/16/2025 Telephone [facility] CHC MED & PEDS [address] [place] [address] Smitha Salas, PharmD 05/16/2025 Refill [facility] CHC MED & PEDS [address] [place] [address] Hernan Urbina MD 05/16/2025 Travel 05/10/2025 Travel 05/09/2025 Refill [facility] MEDICINE [address] [place] [address] Hernan Urbina MD 05/09/2025 Telephone [facility] CHC MED & PEDS [address] [place] [address] Hernan Urbina MD Nurse Triage 05/06/2025 Orders Only [facility] External Provider, [facility] from Last 3 Months Immunizations Immunization Administration [...] Mass Index 25.07 08/04/2025 2:37 PM EDT Plan of Treatment Upcoming Encounters Date Type Department Care Team (Late st Contact Info) Description 08/08/2025 1:30 PM EDT Medication Management [facility] MED & PEDS [address] [place] [address] Smitha Salas, JessD [address] [place] [address] 11/04/2025 2:15 PM EST Office Visit [facility] ADULT DENTAL [address] [place] [address] Domingo Spence Health Maintenance Due Date Last [...] 08/13/2024, 08/2024, 04/16/2023 COVID-19 Vaccine (3 - 2024- season) 2025 11/20/2021, 04/12/2021 Influenza Vaccine (#1) 2025 Dental X-Ray: Bitewings 08/14/2025 08/13/20 24, 06/17/2024, 04/16/2023 Dental Prophylaxis 11/04/2025 05/03/2025, 1 , 02/11/2024, Additional history exists Diabetes: Hemoglobin A1C 11/04/2025 025, 05/16/2025, 01/21/2025 Depression Screening 12/21/2025 12/21/2024, 12/21/19 25 SDOH [...] Name Priority Date/Time Associated Diagnosis Comments POCT URINALYSIS DIPSTICK Routine 08/04/2025 3:03 PM EDT Chronic right-sided low back pain with right-sided sciatica POCT GLUCOSE Routine 08/04/2025 3:03 PM EDT Type 2 diabetes mellitus with diabetic peripheral angiopathy without gangrene, without long-term current use of insulin ([facility]) POCT GLYCATED HEMOGLOBIN, TOTAL Routine 08/04/2025 3:02 PM EDT Type 2 diabetes mellitus with diabetic peripheral angiopathy without gangrene, without long-term current use of insulin (HCC) POCT GLYCATED HEMOGLOBIN, TOTAL Routine 05/16/2025 11:44 [...] VIEWS RIGHT Routine 05/06/2025 4:09 PM EDT PROPHYLAXIS - ADULT Routine 05/03/2025 [...] to Health Maintenance Results * (ABNORMAL) POCT glucose manually resulted (08/04/2025 3:03 PM EDT) Only the most recent of2 resultswithin the time period is included. Glucose Blood, POC 286(A) 60 - 200 mg/dL QC Media Lot # Comment:[id number] Lot# Expiration Date Comment:10/22/2025 Blood Capillary blood specimen / Unknown 08/04/2025 3:03 PM EDT Result [facility] POINT OF CARE TEST ENTER/ EDIT ORDERABLES Final Result * (ABNORMAL) POCT urinalysis dipstick manually resulted [...] Appearance, UA clear QC Media Lot # Comment:[id number] Lot# Expiration Date Comment:05/02/2026 Urine 08/04/2025 3:03 PM EDT Result [facility] POINT OF CARE TEST ENTER/ EDIT ORDERABLES Final Result * (ABNORMAL) POCT A1c (08/04/2025 3:02 PM EDT) Only the most recent of2 resultswithin the time period is included. Hemoglobin A1C 11.8(A) 4.0 - 5.7 % QC Media Lot # Comment:[id number] Lot# Expiration Date Comment:02/24/2027 Blood 08/04/2025 3:02 PM EDT Result [facility] POINT OF CARE TEST ENTER/ EDIT ORDERABLES Final Result * CT Cervical Spine w/o Contrast (05/06/2025 4:53 PM EDT) Anatomical Region Laterality Modality Spine, C-spine Computed Tomogra phy 05/06/2025 4:53 PM EDT Narrative 05/06/2025 4:54 PM EDT [address] [address] [address] Scan Report Signed Patient: Meena Hidalgo MR#: [id number] 061 : 1955 Acct:[id number] Age/Sex: 70 / F ADM Date: 05/06/25 Loc: HO.ED Attending Dr: Ordering Physician: Karla Ramos Date of Service: 05/06/25 Procedure(s): CT cervical spine wo IV con Accession Number(s): [id number] cc: Hernan Urbina MD; Karla Ramos Report Number: [id number]: Total DLP = 358.78 mGy-cm CLINICAL HISTORY: [...] OV> 05/06/25 1654 DD/ 52 TD/TT: 05/06/251652 Abrading Machine Tender: Procedure Note Donotuseinterpreter, Image - 05/06/[address] [address] [address] Scan Report Signed Patient: Tiffanie Hidalgo#: [id number] 061 : 6Acct:[id number] Age/Sex: 70 / FADM Date: 05/06/25 Loc: HO.ED Attending Dr: Ordering Physician: Karla Ramos Date of Service: 05/06/25 Procedure(s): CT cervical spine wo IV con Accession Number(s): [id number] cc: Hernan Urbina MD; Karla Ramos Report Number: [id number]: Total DLP = 358.78 mGy-cm CLINICAL HISTORY: [...] OV> 05/06/25 1654 DD/ 52 TD/TT: 05/06/251652 Abrading Machine Tender: us [facility] External Provider IMG CT PROCEDURES Edited Result - Final * CT Head w/o Contrast (05/06/2025 4:51 PM EDT) Anatomical Region Laterality Modality Head, Neck Computed Tomogra phy 05/06/2025 4:51 PM EDT Narrative 05/06/2025 4:53 PM EDT [place] [address] CT Scan Report Signed Patient: Meena Hidalgo MR#: [id number] 061 : 1955 Acct:[id number] Age/Sex: 70 / F ADM Date: 05/06/25 Loc: HO.ED Attending Dr: Ordering Physician: Karla Ramos Date of Service: 05/06/25 Procedure(s): CT head/brain wo IV con Accession Number(s): [id number] cc: Hernan Urbina MD; Karla Ramos Report Number: [id number]: Total DLP = 643.76 mGy-cm CLINICAL HISTORY: [...] in OV> 05/06/251652 DD/ 50 TD/TT: 05/06/251650 Abrading Machine Tender: Procedure Note Donotuseinterpreter, Image - 05/06/[address] [address] [address] Scan Report Signed Patient: Ramin HidalgoR#: [id number] 061 : 6Acct:[id number] Age/Sex: 70 / FADM Date: 05/06/25 Loc: HO.ED Attending Dr: Ordering Physician: Karla Ramos Date of Service: 05/06/25 Procedure(s): CT head/brain wo IV con Accession Number(s): [id number] cc: Hernan Urbina MD; Karla Ramos Report Number: [id number]: Total DLP = 643.76 mGy-cm CLINICAL HISTORY: [...] 05/06/25 1653 DD/ 1651 TD/TT: 05/06/25 1651 Abrading Machine Tender: us [facility] External Provider IMG CT PROCEDURES Edited Result - Final * XR Shoulder 2+ Views Right (05/06/2025 4:10 PM EDT) Anatomical Region Laterality Modality Upper Extremities, Shoulder Right Radi ographic Imaging 05/06/2025 4:10 PM EDT Narrative 05/06/2025 4:11 PM EDT [address] [address] XRay Report Signed Patient: Meena Hidalgo MR#: [id number] 061 : 1955 Acct:[id number] Age/Sex: 70 / F ADM Date: 05/06/25 Loc: HO.ED Attending Dr: Ordering Physician: Karla Ramos Date of Service: 05/06/25 Procedure(s): XR shoulder RT min 2V Accession Number(s): [id number] cc: Hernan Urbina MD; Karla Ramos CLINICAL [...] 05/06/25 1611 DD/ 1610 TD/TT: 05/06/25 1610 Abrading Machine Tender: Procedure Note Donotuseinterpreter, Image - 05/06/2025 [place] [address] XRay Report Signed Patient: Ramin HidalgoR#: [id number] 061 : 1955cct:[id number] Age/Sex: 70 / FADM Date: 05/06/25 Loc: HO.ED Attending Dr: Ordering Physician: Karla Ramos Date of Service: 05/06/25 Procedure(s): XR shoulder RT min 2V Accession Number(s): [id number] cc: Hernan Urbina MD; Karla Ramos CLINICAL [...] OV> 05/06/25 1611 DD/ 1610 TD/TT: 05/06/25 161 Abrading Machine Tender: [facility] External Provider IMG XR PROCEDURES Edited Result - Final * XR Elbow 1-2 Views Right (05/06/2025 4:09 PM EDT) Anatomical Region Laterality Modality Upper Extremities, Elbow Right Radiogr aphic Imaging 05/06/2025 4:09 PM EDT Narrative 05/06/2025 4:10 PM EDT [place] [address] XRay Report Signed Patient: Meena Hidalgo MR#: [id number] 061 : 1955 Acct:[id number] Age/Sex: 70 / F ADM Date: 05/06/25 Loc: HO.ED Attending Dr: Ordering Physician: Karla Ramos Date of Service: 05/06/25 Procedure(s): XR elbow RT 2V Accession Number(s): [id number] cc: Hernan Urbina MD; Karla Ramos CLINICAL [...] Suarez MD in OV> 05/06/25 1610 DD/ 160 TD/TT: 05/06/251608 Abrading Machine Tender: Procedure Note Donotuseinterpreter, Image - 05/06/[address] [address] XRay Report Signed Patient: Tiffanie Hidalgo#: [id number] 061 : 6Acct:[id number] Age/Sex: 70 / FADM Date: 05/06/25 Loc: .ED Attending Dr: Ordering Physician: Karla Ramos Date of Service: 05/06/25 Procedure(s): XR elbow RT 2V Accession Number(s): [id number] cc: Hernan Urbina MD; Karla Ramos CLINICAL [...] Suarez MD in OV> 05/06/25 1610 DD/ 160 TD/TT: 05/06/251608 Abrading Machine Tender: [facility] External Provider IMG XR PROCEDURES Edited Result - Final * BI Mammogram Screening Tomosynthesis Bilateral (03/22/2025 9:45 AM EDT) Anatomical Region Laterality Modality Breast Bilateral Mammography 03/22/2025 9:45 AM EDT Narrative 03/28/2025 9:15 PM EDT [facility] [address] [place], [place] [address] Mammography Report Signed Patient: Meena Hidalgo MR#: [id number] 061 : 1955 Acct:[id number] Age/Sex: 70 / F ADM Date: 03/22/25 Loc: HO.MAMMO Attending Dr: Hernan Aaron MD Ordering Physician: Hernan Urbina MD Res ults: 1Negative Date of Service: 03/22/25 Follow Up: 1 Year From Orig ina Mammogram Procedure(s): MM tomosynthesis screening BI Accession Number(s): [id number] cc: Hernan Urbina MD EXAMINATION: MM SCREENING [...] 03/28/25 2112 DD/ 0945 TD/TT: 03/22/25 1007 Abrading Machine Tender: Procedure Note Donotuseinterpreter, Image - 03/28/2025 [facility] [address] [place], [place] [address] Mammography Report Signed Patient: Tiffanie Hidalgo#: [id number] 061 : 6Acct:[id number] Age/Sex: 70 / FADM Date: 03/22/25 Loc: HO.MAMMO Attending Dr: Hernan Aaron MD Ordering Physician: Hernan Urbina ults: 1Negative Date of Service: 03/22/25Follow Up: 1 Year From Orig inal Mammogram Procedure(s): MM tomosynthesis screening BI Accession Number(s): [id number] cc: Hernan Urbina MD EXAMINATION: MM SCREENING [...] OV> 03/28/252111 DD/ 0945 TD/TT: 03/22/25 1007 Abrading Machine Tender: Hernan Aaron MD IMG BI PROCEDURES Edited Result - Final * (ABNORMAL) Albumin, Random Urine W/Creatinine (01/21/2025 10:40 AM EDT) Creatinine, Urine 72.43 mg/dL [facility] Microalbumin Urine 27.0 mg/L H [facility] Microalbum Creatinine Ratio Ur 37.2(H) <30 ug/mg cr [facility] Comment:Albumin/Creatinine R atio Reference Ranges: Normal: < 30 ug/mg creatinine Microalbuminuria: 30 - 300 ug/mg creatinineClinical Albuminuria: > 300 ug/mg creatinine Urine (Urine, Random) 01/21/2025 10:40 AM EDT 01/21/2025 2:08 PM EDT us Hernan Aaron MD LAB URINE ORDERABL ES Final Result [facility] [address] [place] [phone] * (ABNORMAL) Lipid Panel, Standard (01/21/2025 10:39 AM EDT) Triglycerides 159(H) <150 mg/dL [facility] Comment:Desirable Triglyceri de: less than 150 mg/dLBorderline High Triglyceride 150-199 mg/dLHigh Triglyceride: 200-499 mg/dLVery High Triglyceride: greater than or equal to 5OO mg/dL Cholesterol 332(H) <200 mg/dL [facility] Comment:Desirable Cholestero l: less than 200 mg/dLBorderline High Cholesterol: 200-239 mg/dLHigh Cholesterol: greater than 239 mg/dL LDL Cholesterol Calculated 247(H) <100 mg/dL [facility] Comment:Desirable LDL: less than 100 mg/dLNear Optimal/Above Optimal LDL: 110- 129 mg/dLBorderline High LDL: 130-159 mg/dLHigh LDL: 160-189 mg/dLVery High LDL: greater than or equal to 190 mg/dL HDL Cholesterol 54 >40 mg/dL [facility] Comment:Desirable HDL: great er than 40 mg/dL Note: This HDL assay may give artificially low results in patients with liver disease. Blood Venous blood specimen / Unknown 01/21/2025 10:39 AM EDT 01/21/2025 2:05 PM EDT Hernan Aaron MD LAB BLOOD ORDERABL ES Final Result Performing Organization Address [facility]/ZIP Co de Phone Number [facility] [address] [place] [phone] * Hepatitis C Antibody with Reflex to HCV, RNA, Quantitative, Real-Time PCR (01/21/2025 10:34 AM EDT) Hepatitis C Antibody Nonreactive Nonreactive [facility] Comment:Antibodies to HCV no t detected; does not exclude early acuteHCV infection. Blood Venous blood specimen / Unknown 01/21/2025 10:34 AM EDT 01/21/2025 2:05 PM EDT Hernan Aaron MD LAB BLOOD ORDERABL ES Final Result Performing Organization Address [facility]/ZIP Co de Phone Number [facility] [address] [place] [phone] from Last 3 Months or Most Recently Relevant to Health Maintenance Insurance [facility] [employer] [employer] (O D-SNP) [place]ANE [id number] [facility] Care Teams Spinner Fixer Relationship Specialty Start Date End Date Hernan Urbina MD [address] [facility] [place] [address] PCP - General Internal Medicine 01/21/25 Smitha Salas PharmD [address] [place] [phone] Pharmacist Pharmacy 06/09/25
--- OUTSIDE RECORDS SUMMARY | 2025-08-04 16:39 | XMS_ITS | Encounter Summary ---
Author Organization [employer] Address [address] [facility] 7t [place] [address] Care Team Providers Care Floor Polisher Name Role Phone Hernan Urbina MD Primary Care Prov ider Smitha Salas PharmD Unavailable [phone] Reason for Referral * Consultation (Routine) - Canceled Specialty Diagnoses / Procedures Referred By Contac t Referred To Contact Pharmacy Diagnoses Primary hypertension Hernan Urbina MD [address] [place] [address] Phone: tel: fax: Referral ID Status Reason Start Date Expiration Date V isits Requested Visits Authorized [id number] Canceled Continuity of Care 05/17/2025 05/17/2026 6 6 Encounter Details Date Type Department Care Team ([facility] st Contact Info) Description 04/05/2025 Orders Only [facility] CHC MED & PEDS [address] [place], [place] [phone] Hernan Urbina MD [address] [place], [place] [phone] Primary hypertension (Primary Dx) Social History Tobacco [...] Description 08/08/2025 1:30 PM EDT Medication Management [facility] MED & PEDS [address] [place] [address] Smitha Salas PharmD [address] [place] [address] 11/04/2025 2:15 PM EST Office Visit [facility] ADULT DENTAL [address] [place] [address] Domingo Spence Scheduled Referrals Name Type Priority [...] documented as of this encounter Care Teams Floor Polisher Relationship Specialty Start Date End Date Hernan Urbina MD [address] [place] [address] PCP - General Internal Medicine 01/21/25 Smitha Salas PharmD [address] [place] [address] Pharmacist Pharmacy 06/09/25 documented as of this encounter
--- OUTSIDE RECORDS SUMMARY | 2025-08-04 16:39 | XMS_ITS | Encounter Summary ---
Author Organization [employer] Address [address] [facility] [address] 7[address] [place] [address] Care Team Providers Care Prepress Proofer Name Role Phone Hernan Urbina MD Primary Care Prov ider Smitha Salas PharmD Unavailable [phone] Reason for Visit * Reason Comments Med Refill Encounter Details Date Type Department Care Team (Late st Contact Info) Description 05/09/[address] [facility] MEDICINE [address] [place] [address] Hernan Urbina MD [address] [place], [place] [phone] Social History Tobacco Use Types Packs/Day Years [...] Description 08/08/2025 1:30 PM EDT Medication Management [facility] MED & PEDS [address] [place] [address] Smitha Salas PharmD [address] [place] [address] 11/04/2025 2:15 PM EST Office Visit [facility] ADULT DENTAL [address] [place] [address] Domingo Spence documented as of this encounter Visit Diagnoses Not on filedocumented in this encounter Additional Health Concerns Assessment Noted Time PHQ-9 Depression Total Score: 2 12/21/19 25 8:57 AM EST documented as of this encounter Care Teams Prepress Proofer Relationship Specialty Start Date End Date Hernan Urbina MD [address] [place] [address] PCP - General Internal Medicine 01/21/25 Smitha Salas PharmD [address] [place] [address] Pharmacist Pharmacy 06/09/25 documented as of this encounter
--- OUTSIDE RECORDS SUMMARY | 2025-08-04 16:39 | XMS_ITS | Encounter Summary ---
Author Organization [employer] [facility] Address [address] [facility] 7 [place] [address] Care Team Providers Care Plant Attendant Name Role Phone Hernan Urbina MD Primary Care Prov ider Smitha Salas PharmD Unavailable [phone] Encounter Details Date Type Department Care Team (Latest Contact Info) Description 02/02/2021 Abstract [facility] CON[facility]S Dental, Provider, DDS Social History [...] 1:30 PM EDT Medication Management [facility] MED & PEDS [address] [place], [place] [phone] Smitha Salas, PharmD [address] [place] [address] 11/04/2025 2:15 PM EST Office Visit [facility] ADULT DENTAL [address] [place], [place] [phone] Domingo Spence documented as of this encounter Visit Diagnoses Not on filedocumented in this encounter Care Teams Plant Attendant Relationship Specialty Start Date End Date Hernan Urbina MD [address] [place], [place] PCP - General Internal Medicine 01/21/25 Smitha Salas, JessD [address] [place] [address] Pharmacist Pharmacy 06/09/25 documented as of this encounter
--- OUTSIDE RECORDS SUMMARY | 2025-08-04 16:39 | XMS_ITS | Encounter Summary ---
Author Organization [employer] Address [address] 7t [place] [address] Care Team Providers Care Construction Craft Laborer Name Role Phone Hernan Urbina MD Primary Care Prov ider Smitha Salas PharmD Unavailable [phone] Encounter Details Date Type Department Care Team (Latest Contact Info) Description 08/01/2025 Travel Social History Tobacco Use Types Packs/Day [...] Description 08/08/2025 1:30 PM EDT Medication Management [facility] MED & PEDS 505 [place] [address] Smitha Salas PharmD [address] [place] [address] 11/04/2025 2:15 PM EST Office Visit [facility] ADULT DENTAL 505 [place] [address] Domingo Spence documented as of this encounter Visit Diagnoses Not on filedocumented in this encounter Additional Health Concerns Assessment Noted Time PHQ-9 Depression Total Score: 2 12/21/19 8:57 AM EST documented as of this encounter Care Teams Construction Craft Laborer Relationship Specialty Start Date End Date Hernan Urbina MD 505 [place] [address] PCP - General Internal Medicine 01/21/25 Smitha Salas PharmD [address] [place] [address] Pharmacist Pharmacy 06/09/25 documented as of this encounter
--- OUTSIDE RECORDS SUMMARY | 2025-08-04 16:39 | XMS_ITS | Encounter Summary ---
Author Organization [employer] Address [address] [facility] 7t [place] [address] Care Team Providers Care Parts Counterperson Name Role Phone Hernan Urbina MD Primary Care Prov ider Smitha Salas PharmD Unavailable [phone] Reason for Visit * Reason Onset Date Comments Med Refill 05/31/2025 Encounter Details Date Type Department Care Team ([facility] Contact Info) Description 05/31/2025 Telephone [facility] CHC MED & PEDS 505 [place] [address] Hernan Urbina MD 505 [place] [address] Med Refill Social History Tobacco Use Types [...] - 05/31/2025 3:27 PM EDT [facility] requesting medication refill. Medications needing refill : dapagliflozin (Farxiga) 10 MG fluticasone (Flovent HFA) 110 MCG/ACT inhaler Ventolin HFA 108 (90 Base) MCG/ACT inhaler glucose blood (FREESTYLE LITE) test strip Lancets To be sent to: [facility] - [place], [place] - [address] [place] [address] documented in this encounter Plan of Treatment Upcoming Encounters Date Type Department Care Team (Late st Contact Info) Description 08/08/2025 1:30 PM EDT Medication Management [facility] MED & PEDS [address] [place] [address] Smitha Salas, PharmD 230 [place], [place] [id number] 11/04/2025 2:15 PM EST Office Visit [facility] CHC ADULT DENTAL 505 [place] [address] Domingo Spence documented as of this encounter Visit Diagnoses Not on filedocumented in this encounter Additional Health Concerns Assessment Noted Time PHQ-9 Depression Total Score: 2 12/21/19 25 8:57 AM EST documented as of this encounter Care Teams Parts Counterperson Relationship Specialty Start Date End Date Hernan Urbina MD 505 [place] [address] PCP - General Internal Medicine 01/21/25 Smitha Salas, JessD [address] [place] [address] Pharmacist Pharmacy 06/09/25 documented as of this encounter
--- OUTSIDE RECORDS SUMMARY | 2025-08-04 16:39 | XMS_ITS | Encounter Summary ---
Author Organization [employer] [facility] Address [address] [place] [address] 7 [place] [address] Care Team Providers Care High Lighter Name Role Phone Hernan Urbina MD Primary Care Prov ider Smitha Salas PharmD Unavailable [phone] Encounter Details Date Type Department Care Team (Late Contact Info) Description 11/01/2022 Abstract [facility] ADULT DENTAL [address] [place] [address] Thompson Cobb DDS 230 [place] [address] Social History Tobacco Use Types Packs/Day Years [...] PM EDT Medication Management [facility] MED & PEDS [address] [place] [address] Smitha Salas, PharmD 230 [place] [address] 11/04/2025 2:15 PM EST Office Visit [facility] ADULT DENTAL [address] [place] [address] Domingo Spence documented as of this encounter Visit Diagnoses Not on filedocumented in this encounter Care Teams High Lighter Relationship Specialty Start Date End Date Hernan Urbina MD 505 [place] [address] PCP - General Internal Medicine 01/21/25 Smitha Salas PharmD [address] [place] [address] Pharmacist Pharmacy 06/09/25 documented as of this encounter
--- OUTSIDE RECORDS SUMMARY | 2025-08-04 16:39 | XMS_ITS | Encounter Summary ---
Author Organization [employer] Address [address] 7t [place] [address] Care Team Providers Care Mobile Architect Name Role Phone Hernan Urbina MD Primary Care Prov ider Smitha Salas PharmD Unavailable [phone] Encounter Details Date Type Department Care Team (Late st Contact Info) Description 01/24/2025 Orders Only [facility] CHC MED & PEDS [address] [place] [address] Hernan Urbina MD 505 [place] [address] Social History Tobacco Use Types Packs/Day Years [...] [facility] MED [facility] [address] [place] [address] Smitha Salas PharmD 230 [place] [address] 11/04/2025 2:15 PM EST Office Visit [facility] ADULT DENTAL [address] [place] [address] Domingo Spence documented as of this encounter Visit Diagnoses Not on filedocumented in this encounter Additional Health Concerns Assessment Noted Time PHQ-9 Depression Total Score: 2 12/21/19 25 8:57 AM EST documented as of this encounter Care Teams Mobile Architect Relationship Specialty Start Date End Date Hernan Urbina MD 505 [place] [address] PCP - General Internal Medicine 01/21/25 Smitha Salas PharmD [address] [place] [address] Pharmacist Pharmacy 06/09/25 documented as of this encounter
--- OUTSIDE RECORDS SUMMARY | 2025-08-04 16:39 | XMS_ITS | Encounter Summary ---
Author Organization [employer] [facility] Address [address] [facility] 7 [place] [address] Care Team Providers Care Relay Tester Helper Name Role Phone Hernan Urbina MD Primary Care Prov ider Smitha Salas PharmD Unavailable [phone] Encounter Details Date Type Department Care Team (Latest Contact Info) Description 04/15/2022 Abstract [facility] CONVERSIONS Dental, [...] 08/08/2025 1:30 PM EDT Medication Management [facility] MED [facility] PEDS [address] [place], [place] [phone] Smitha Salas, PharmD 230 [place] [address] 11/04/2025 2:15 PM EST Office Visit [facility] ADULT DENTAL [address] [place], [place] [phone] Domingo Spence documented as of this encounter Visit Diagnoses Not on filedocumented in this encounter Care Teams Relay Tester Helper Relationship Specialty Start Date End Date Hernan Urbina MD 505 [place], [place] PCP - General Internal Medicine 01/21/25 Smitha Salas, JessD 230 [place] [address] Pharmacist Pharmacy 06/09/25 documented as of this encounter
--- OUTSIDE RECORDS SUMMARY | 2025-08-04 16:39 | XMS_ITS | Encounter Summary ---
Author Organization [facility] Address [address] [facility] 7 [place] [address] Care Team Providers Care Wood Last Maker Name Role Phone Hernan Urbina MD Primary Care Prov ider Smitha Salas PharmD Unavailable [phone] Encounter Details Date Type Department Care Team (Latest Contact Info) Description 04/14/2019 Abstract [facility] CONVERSIONS Dental, Provider, DDS Social History [...] [facility] 505 [place] [address] Smitha Salas, PharmD 230 [place] [address] 11/04/2025 2:15 PM EST Office Visit [facility] ADULT DENTAL 505 [place] [address] Domingo Spence documented as of this encounter Visit Diagnoses Not on filedocumented in this encounter Care Teams Wood Last Maker Relationship Specialty Start Date End Date Hernan Urbina MD [address] [place], [place] PCP - General Internal Medicine 01/21/25 Smitha Salas, JessD [address] [place] [address] Pharmacist Pharmacy 06/09/25 documented as of this encounter
--- OUTSIDE RECORDS SUMMARY | 2025-08-04 16:40 | XMS_ITS | Encounter Summary ---
Author Organization [employer] [facility] Address [address] [place] [address] 7 [place] [address] Care Team Providers Care Mat Machine Operator Name Role Phone Hernan Urbina MD Primary Care Prov ider Smitha Salas PharmD Unavailable [phone] Reason for Visit * Reason Comments Med Refill Encounter Details Date Type Department Care Team ([facility] Contact Info) Description 09/12/2023 Refill [facility] MED & PEDS 505 [place] [address] Christopher Spence MD 505 [place] [address] Social History Tobacco Use Types Packs/Day Years [...] Upcoming Encounters Date Type Department Care Team ([facility] Contact Info) Description 08/08/2025 1:30 PM EDT Medication Management [facility] MED & PEDS 505 [place] [address] Smitah Salas, PharmD 230 [place] [address] 11/04/2025 2:15 PM EST Office Visit [facility] ADULT DENTAL 505 [place] [address] Domingo Spence documented as of this encounter Visit Diagnoses Not on filedocumented in this encounter Care Teams Mat Machine Operator Relationship Specialty Start Date End Date Hernan Urbina MD 505 [place] [address] PCP - General Internal Medicine 01/21/25 Smitha Salas PharmD [address] [place] [address] Pharmacist Pharmacy 06/09/25 documented as of this encounter
--- OUTSIDE RECORDS SUMMARY | 2025-08-04 16:40 | XMS_ITS | Encounter Summary ---
Author Organization [employer] [facility] Address [address] 7t [place] [address] Care Team Providers Care Education Supervisor Name Role Phone Hernan Urbina MD Primary Care Prov ider Smitha Salas PharmD Unavailable [phone] Encounter Details Date Type Department Care Team (Late Contact Info) Description 08/10/2024 Telephone [facility] ADULT DENTAL [address] [place], [place] [phone] Neha Felder DMD Social History Tobacco Use [...] Description 08/08/2025 1:30 PM EDT Medication Management [facility] CHC MED & PEDS [address] [place], [place] [phone] Smitha Salas, PharmD 230 [place] [address] 11/04/2025 2:15 PM EST Office Visit [facility] CHC ADULT DENTAL 505 [place] [address] Domingo Spence documented as of this encounter Visit Diagnoses Not on filedocumented in this encounter Care Teams Education Supervisor Relationship Specialty Start Date End Date Hernan Urbina MD 505 [place] [address] PCP - General Internal Medicine 01/21/25 Smitha Salas PharmD [address] [place] [address] Pharmacist Pharmacy 06/09/25 documented as of this encounter
--- OUTSIDE RECORDS SUMMARY | 2025-08-04 16:40 | XMS_ITS | Patient Health Record ---
Author Organization [facility] Address [address] [facility] [place] [address] Care Team Providers Care Kettle Operator Head Name Role Phone Hernan Wasserman Primary Care Provider Unavailable Kathrine Cheema Unavailable [phone] Allergies Allergen (clinical drug ingredient) Drug/Non Drug [...] Polyneuropathy due to type 2 diabetes mellitus (842887502) Type 2 diabetes mellitus with polyneuropathy (E11.42) Active confirmed Vital Signs Blood pressure diastolic 77 mm Hg 07/05/2025 Height 4ft 11in in 07/05/2025 Blood pressure systolic 130 mm Hg 07/05/2025 Weight 126 lbs 07/05/2025 BMI 25.45 kg/m2 07/05/2025 Encounters Encounter Location Date Provider Diagnosis [facility] [address] 11/16/2024 Kathrine Cheema Type 2 diabetes mellitus with polyneuropathy E11.42 ; Other hammer toe(s) (acquired), right foot M20.41 and Other hammer toe(s) (acquired), left foot M20.[address] [facility] [address] 01/25/2025 Kathrine Cheema Type 2 diabetes mellitus with polyneuropathy E11.[address] [address] 04/05/2025 Kathrine Cheema Type 2 diabetes mellitus with polyneuropathy E11.42 ; Other hammer toe(s) (acquired), right foot M20.41 and Other hammer toe(s) (acquired), left foot M20.[address] [address] 07/05/2025 Kathrine Cheema Type 2 diabetes mellitus with polyneuropathy E11.[address] [address] 09/07/2024 Kathrine Cheema [address] [address] 09/07/2024 Kathrine Cheema [address] [address] 05/25/2025 Kathrine Cheema Assessments Encounter Date Diagnosis [...] Provider Name:Kathrine armando, 09/13/2025 03:30:00 PM, [address] [place], [address], Insurance Providers Payer Name Payer Address Payer Phone Subscriber Number Group Number Insured Name Patient Relationship to Insured Coverage Start Date Coverage End Date [facility] [employer] Claims [address] [place] [address] [phone] [id number] Meena Hidalgo Self - patient is the insured Medical (General) History Medical History History ICD Code type 2 diabetes depression/anxiety hyperlipidemia psychophysiological insomnia osteopenia adnexal mass HTN asthma [place] 02/24/19 fatty liver uterine fibroid Arthritis Back,Hip,and [...]
--- OUTSIDE RECORDS SUMMARY | 2025-08-04 16:40 | XMS_ITS | Encounter Summary ---
Author Organization [employer] Address [address] 7t [place] [address] Care Team Providers Care Stock Mixer Name Role Phone Hernan Urbina MD Primary Care Prov ider Smitha Salas PharmD Unavailable [phone] Reason for Visit * Reason Onset Date Comments Appointment 05/20/2023 Encounter Details Date Type Department Care Team ([facility] st Contact Info) Description 05/20/2023 Telephone [facility] CHC ADULT DENTAL [address] [place] [address] Thompson Cobb DDS [address] [place] [address] Appointment Social History Tobacco Use Types Packs/Day [...] Description 08/08/2025 1:30 PM EDT Medication Management [facility] MED & PEDS 505 [place] [address] Smitha Salas PharmD [address] [place] [address] 11/04/2025 2:15 PM EST Office Visit [facility] ADULT DENTAL 505 [place] [address] Domingo Spence documented as of this encounter Visit Diagnoses Not on filedocumented in this encounter Care Teams Stock Mixer Relationship Specialty Start Date End Date Hrenan Urbina MD 505 [place] [address] PCP - General Internal Medicine 01/21/25 Smitha Salas PharmD [address] [place] [address] Pharmacist Pharmacy 06/09/25 documented as of this encounter
[2025-08-04 17:42] LABS: MANUAL DIFF FLAG NO
[2025-08-04 17:48] LABS: Hematocrit 40.8 % (37.0-47.0); Hemoglobin 13.5 g/dl (12.0-16.0); Imm Gran Abs Auto 0.01 X10*3/uL (0.00-0.03); Imm Gran Pct Auto 0.1 % (0.0-0.4); Lymphocytes Absolute Auto 1.3 X10*3/uL (1.2-4.9); Mean Corpuscular HGB Conc 33.1 g/dl (31.0-35.0); Mean Corpuscular Hemoglobin 30.9 pg (27.0-33.0); Mean Corpuscular Volume 93.4 fL (80.0-98.0); NRBC Abs Auto 0.000 X10*3/uL (0.0-0.012); NRBC Pct Auto 0.0 /100WBC (0.0-0.2); Platelet Count 245 X10*3/uL (160-400); Red Blood Count 4.37 X10*6/uL (4.20-5.50); White Blood Count 7.8 X10*3/uL (4.8-10.8)
== END 2025-08-04 15:20 | disposition home or self-care (01) ==
LOC: HO.CHCLDS 15:19
DX: M54.9 Dorsalgia, unspecified (principal)
CPT/HCPCS: 36415; 85025; 85652; 86140

== ENCOUNTER 2025-08-05 10:40 | Outpatient (REF) | payer OTHER, SELFPAY ==
--- OUTSIDE RECORDS SUMMARY | 2024-11-19 08:30 | XMS_ITS ---
Author Organization [facility] Address [address] [place] [address] Care Team Providers Care Kiln Operator Helper Name Role Phone Hernan Wasserman Primary Care Provider Unavailable Kathrine Cheema Unavailable [phone] REASON FOR VISIT r/s for sooner apt Encounters Encounter Location Date Provider Diagnosis [facility] [address] [place] [address] 11/19/2024 Kathrine Cheema Plan Of Treatment Next Appt Details Provider Name:Kathrine armando, 09/13/2025 03:30:00 PM, [address] [place], [address], Progress Notes * Judie TOLLIVERB:[birth year] (70 yo F)Acc No.[id number]:11/19/2024 Progress Note Patient: Lucien MCCONNELLTabby Meena Provider: Gretchen Cheema DPM :1955 A ge:69 Y S ex:Female Date:11/19/2024 Address:[address] [place] [address], [address], [id number] Pcp:Hernan wu Subjective: * Chief Complaints: * [...] 0 11/19/2024 Generated for Osmar Carr/Bridgett on: 11:39 AM EDT
--- OUTSIDE RECORDS SUMMARY | 2025-08-04 14:45 | XMS_ITS | Encounter Summary ---
Author Organization [employer] Address 75 [facility] 7t [place] [address] Care Team Providers Care Riding Silks Custodian Name Role Phone Hernan Urbina MD Primary Care Prov ider Smitha Salas PharmD Unavailable [phone] Encounter Details Date Type Department Care Team ([facility] st Contact Info) Description 08/04/2025 2:45 PM EDT Office Visit [facility] MED & PEDS 505 [place] [address] Stanley Miller CNP 505 [place] [address] Chronic right-sided low back pain with right-sided [...] Description 08/08/2025 1:30 PM EDT Medication Management [facility] MED & PEDS [address] [place] [address] Smitha Salas, PharmD [address] [place] [address] 11/04/2025 2:15 PM EST Office Visit [facility] ADULT DENTAL [address] [place] [address] Domingo Spence documented as of this encounter Procedures Procedure Name Priority Date/Time Associated Diagnosis Comments XR LUMBAR SPINE 2-3 VIEWS Routine 08/05/2025 11:11 AM EDT Chronic right-sided low back pain with right-sided sciatica CBC WITH AUTO DIFFERENTIAL Routine 08/04/2025 3:23 PM EDT Chronic right-sided low back pain with right-sided sciatica SED RATE BY MODIFIED WESTERGREN Routine 08/04/2025 3:23 PM EDT Chronic right-sided low back pain with right-sided sciatica C-REACTIVE PROTEIN Routine 08/04/2025 3: 23 PM EDT Chronic right-sided low back pain with right-sided sciatica POCT GLUCOSE Routine 08/04/2025 3:03 PM EDT [...] (HCC) documented in this encounter Results * XR Lumbar Spine 2-3 Views (08/05/2025 11:11 AM EDT) Anatomical Region Laterality Modality Spine, L-spine Radiographic Blanca ging 08/05/2025 11:1 1 AM EDT Narrative 08/05/2025 11:31 AM EDT [address] [address] XRay Report Signed Patient: Meena Hidalgo MR#: [id number] : 1955 Acct:[id number] Age/Sex: 70 / F ADM Date: 08/05/25 Loc: [facility] Attending Dr: Stanley Miller RETAIL PHARMACY MANAGER Ordering Physician: Stanley Miller NP Date of Service: 08/05/25 Procedure(s): XR lumbar spine 2-3V Accession Number(s): [id number] cc: Hernan Urbina MD; Stanley Miller NP Reason for Exam: lbp x 4 weeks no neuro deficits EXAMINATION: XR LUMBOSACRAL SPINE CLINICAL INFORMATION: lbp x 4 weeks no neuro deficits COMPARISON: November 21, 2023. TECHNIQUE: AP and lateral views. FINDINGS: Multilevel marginal osteophyte formation and syndesmophyte formation with endplate sclerosis throughout the axial skeleton. No acute cortical disruption or gross malalignment. No lytic or blastic lesions. Sclerosis along the articular surface of the acetabulum and sacroiliac joints. XR/XR lumbar spine 2-3V IMPRESSION: Multilevel thoracolumbar spondylosis without acute fracture or listhesis. Probable seronegative arthritis. Electronically signed by: Roel Mesa MD 08/05/2025 11:28 AM EDT Dictated By: Roel Mcdaniel MD Signed By: <Electronically signed by Roel Dunbar MD in OV> 08/05/25 1128 DD/ 1111 TD/TT: 08/05/25 1115 Land Checker: Procedure Note Donotuseinterpreter, Image - 08/05/[address] [address] XRay Report Signed Patient: Tiffanie Hidalgo#: [id number] : 1955cct:[id number] Age/Sex: 70 / FADM Date: 08/05/25 Loc: [facility] Attending Dr: Stanley Miller RETAIL PHARMACY MANAGER Ordering Physician: Stanley Miller NP Date of Service: 08/05/25 Procedure(s): XR lumbar spine 2-3V Accession Number(s): [id number] cc: Hernan Urbina MD; Stanley Miller NP Reason for Exam: lbp x 4 weeks no neuro deficits EXAMINATION: XR LUMBOSACRAL SPINE CLINICAL INFORMATION: lbp x 4 weeks no neuro deficits COMPARISON: November 21, 2023. TECHNIQUE: AP and lateral views. FINDINGS: Multilevel marginal osteophyte formation and syndesmophyte formation with endplate sclerosis throughout the axial skeleton. No acute cortical disruption or gross malalignment. No lytic or blastic lesions. Sclerosis along the articular surface of the acetabulum and sacroiliac joints. XR/XR lumbar spine 2-3V IMPRESSION: Multilevel thoracolumbar spondylosis without acute fracture or listhesis. Probable seronegative arthritis. Electronically signed by: Roel Mesa MD 08/05/2025 11:28 AM EDT RP Dictated By: Roel Mcdaniel MD Signed By: <Electronically signed by Roel Dunbar MDin OV> 08/05/25 1128 DD/ 1111 TD/TT: 08/05/25 1115 Land Checker: [facility] SSN/SSBN ASSISTANT NAVIGATOR IMG XR PROCEDURES Final R esult * (ABNORMAL) C-reactive Protein (08/04/2025 3:23 PM EDT) Pathologist [facility] C Reactive Protein 1.05(H) < or = 0.50 mg/dL [facility] Blood Venous blood specimen / Unknown 08/04/2025 3:23 PM EDT 08/04/2025 5:36 PM EDT [facility] SSN/SSBN ASSISTANT NAVIGATOR LAB BLOOD ORDERABLES Violetta l Result [facility] [address] [place] [phone] * Sed Rate by Modified Vernren (08/04/2025 3:23 PM EDT) Erythrocyte Sedimentation Rate 15 0 - 20 MM/HR [facility] Comment:Patients with polycy themia and many hemoglobin abnormalitiesmay have depressed sed rates whereas patients with anemiamay have elevated sed rates. Blood Venous blood specimen / Unknown 08/04/2025 3:23 PM EDT 08/04/2025 5:36 PM EDT Stanley Miller [facility] LAB BLOOD ORDERABLES Violetta l Result [facility] [address] [place] [address] [phone] * (ABNORMAL) CBC auto differential (08/04/2025 3:23 PM EDT) White Blood Count 7.8 4.8 - 10.8 X10*3/uL [facility] Red Blood Count 4.37 4.20 - 5.50 X10*6/uL [facility] Hemoglobin 13.5 12.0 - 16.0 g/dl [facility] Hematocrit 40.8 37.0 - 47.0 % [facility] Mean Corpuscular Volume 93.4 80.0 - 98.0 fL [facility] Mean Corpuscular Hemoglobin 30.9 27.0 - 33.0 pg [facility] Mean Corpuscular HGB Conc 33.1 31.0 - 35.0 g/dl [facility] Red Cell Distribution Width 11.5 11.0 - 16.0 % [facility] Platelet Count 245 160 - 400 X10*3/uL [facility] Mean Platelet Volume 11.5 9.4 - 12.3 fL [facility] Neutrophils Percent Auto 69.8 45 - 73 % [facility] Imm Gran Pct Auto 0.1 0.0 - 0.4 % [facility] Lymphocytes Percent Auto 17.2(L) 20 - 40 % [facility] Monocytes Percent Auto 10.9 2 - 11 % [facility] Eosinophils Percent Auto 1.7 0 - 4 % [facility] Basophils Percent Auto 0.3 0 - 2 % [facility] NRBC Pct Auto 0.0 0.0 - 0.2 /100WBC [facility] Neutrophils Absolute Auto 5.4 2.0 - 8.3 x10*3/uL [facility] Imm Gran Abs Auto 0.01 0.00 - 0.03 X10*3/uL [facility] Lymphocytes Absolute Auto 1.3 1.2 - 4.9 X10*3/uL [facility] Monocytes Absolute Auto 0.9 0.1 - 1.2 X10*3/uL [facility] Eosinophils Absolute Auto 0.1 0.0 - 0.4 X10*3/uL [facility] Basophils Absolute Auto 0.0 0.0 - 0.2 X10*3/uL [facility] NRBC Abs Auto 0.000 0.0 - 0.012 X10*3/uL [facility] Blood Venous blood specimen / Unknown 08/04/2025 3:23 PM EDT 08/04/2025 5:36 PM EDT [facility] LAB BLOOD ORDERABLES Violetta l Result [facility] [address] [place] [phone] * (ABNORMAL) POCT urinalysis dipstick manually resulted [...] Appearance, UA clear QC Media Lot # Comment:[id number] Lot# Expiration Date Comment:05/02/2026 Urine 08/04/2025 3:03 PM EDT Result [facility] POINT OF CARE TEST ENTER/ EDIT ORDERABLES Final Result * (ABNORMAL) POCT glucose manually resulted (08/04/2025 3:03 PM EDT) Pathologist [facility] Glucose Blood, POC 286(A) 60 - 200 mg/dL QC Media Lot # Comment:[id number] Lot# Expiration Date Comment:10/22/2025 Blood Capillary blood specimen / Unknown 08/04/2025 3:03 PM EDT [facility] POINT OF CARE TEST ENTER/ EDIT ORDERABLES Final Result * (ABNORMAL) POCT A1c (08/04/2025 3:02 PM EDT) [facility] Hemoglobin A1C 11.8(A) 4.0 - 5.7 % QC Media Lot # Comment:[id number] Lot# Expiration Date Comment:02/24/2027 Blood 08/04/2025 3:02 PM EDT [facility] POINT OF CARE TEST ENTER/ EDIT ORDERABLES [...] documented as of this encounter Care Teams Riding Silks Custodian Relationship Specialty Start Date End Date Hernan Urbina MD [address] [place] [address] PCP - General Internal Medicine 01/21/25 Smitha Salas PharmD [address] [place] [address] Pharmacist Pharmacy 06/09/25 documented as of this encounter
--- NOTE | ~2025-08-05 | XR_ITS ---
EXAMINATION: XR LUMBOSACRAL SPINE CLINICAL INFORMATION: lbp x 4 weeks no neuro deficits COMPARISON: November 21, 2023. TECHNIQUE: AP and lateral views. FINDINGS: Multilevel marginal osteophyte formation and syndesmophyte formation with endplate sclerosis throughout the axial skeleton. No acute cortical disruption or gross malalignment. No lytic or blastic lesions. Sclerosis along the articular surface of the acetabulum and sacroiliac joints. XR/XR lumbar spine 2-3V IMPRESSION: Multilevel thoracolumbar spondylosis without acute fracture or listhesis. Probable seronegative arthritis. Electronically signed by: Roel Mesa MD 08/05/2025 11:28 AM EDT
--- OUTSIDE RECORDS SUMMARY | 2025-08-05 11:39 | XMS_ITS | Encounter Summary ---
Author Organization [employer] Address [address] [facility] [address] 7t [place] [address] Care Team Providers Care Administrative Assistant Coordinator Name Role Phone Hernan Urbina MD Primary Care Prov ider Smitha Salas PharmD Unavailable [phone] Reason for Visit * Reason Comments Med Refill Encounter Details Date Type Department Care Team (Late st Contact Info) Description 05/09/2025 Refill [facility] 230 [place] [address] Hernan Urbina MD [address] [place], [place] [phone] Social History Tobacco Use Types Packs/Day Years [...] Description 08/08/2025 1:30 PM EDT Medication Management [facility] MED & PEDS 505 [place] [address] Smitha Salas PharmD 230 [place] [address] 11/04/2025 2:15 PM EST Office Visit [facility] ADULT DENTAL 505 [place] [address] Domingo Spence documented as of this encounter Visit Diagnoses Not on filedocumented in this encounter Additional Health Concerns Assessment Noted Time PHQ-9 Depression Total Score: 2 12/21/19 25 8:57 AM EST documented as of this encounter Care Teams Administrative Assistant Coordinator Relationship Specialty Start Date End Date Hernan Urbina MD 505 [place] [address] PCP - General Internal Medicine 01/21/25 Smitha Salas PharmD 230 [place] [address] Pharmacist Pharmacy 06/09/25 documented as of this encounter
--- OUTSIDE RECORDS SUMMARY | 2025-08-05 11:39 | XMS_ITS | Encounter Summary ---
Author Organization [employer] Address [address] [facility] 7t [place] [address] Care Team Providers Care Product/Device Technologist Name Role Phone Hernan Urbina MD Primary Care Prov ider Smitha Salas PharmD Unavailable Reason for Visit * Reason Onset Date Comments Nurse Triage 08/04/2025 Encounter Details Date Type Department Care Team ([facility] st Contact Info) Description 08/04/2025 Telephone [facility] CHC MED & PEDS 505 [place] [address] Hernan Urbina MD 505 [place] [address] Nurse Triage Social History Tobacco Use Types [...] caller accepted this outcome. Contact pt at [phone] (chilean) Called pt. Via [employer] captain waiter/waitress [address] Simone. Pt. States that she has been [...] right side of back. Appointment made in [facility] for 245pm due to pt. Low immune [...] caller accepted this outcome. Contact pt at [phone] (chilean) documented in this encounter Plan of Treatment Upcoming Encounters Date Type Department Care Team (Late st Contact Info) Description 08/08/2025 1:30 PM EDT Medication Management [facility] MED & PEDS 505 [place] [address] Smitha Salas PharmD 230 [place] [address] 11/04/2025 2:15 PM EST Office Visit [facility] ADULT DENTAL 505 [place] [address] Domingo Spence documented as of this encounter Visit Diagnoses Not on filedocumented in this encounter Additional Health Concerns Assessment Noted Time PHQ-9 Depression Total Score: 2 12/21/19 25 8:57 AM EST documented as of this encounter Care Teams Product/Device Technologist Relationship Specialty Start Date End Date Hernan Urbina MD 505 [place] [address] PCP - General Internal Medicine 01/21/25 Smitha Salas, PharmD 230 [place], [place] [phone] Pharmacist Pharmacy 06/09/25 documented as of this encounter
--- OUTSIDE RECORDS SUMMARY | 2025-08-05 11:39 | XMS_ITS | Encounter Summary ---
Author Organization [employer] Address [address] [facility] 7t [place] [address] Care Team Providers Care Locomotive Mechanic Name Role Phone Hernan Urbina MD Primary Care Prov ider Smitha Salas PharmD Unavailable [phone] Encounter Details Date Type Department Care Team [...] [facility] MED & [facility]ED[facility] 505 [place] [address] Smitha Salas PharmD 230 [place] [address] 11/04/2025 2:15 PM EST Office Visit [facility] ADULT DENTAL 505 [place] [address] Domingo Spence documented as of this encounter Visit Diagnoses Not on filedocumented in this encounter Additional Health Concerns Assessment Noted Time PHQ-9 Depression Total Score: 2 12/21/19 8:57 AM EST documented as of this encounter Care Teams Locomotive Mechanic Relationship Specialty Start Date End Date Hernan Urbina MD 505 [place] [address] PCP - General Internal Medicine 01/21/25 Smitha Salas PharmD [address] [place] [address] Pharmacist Pharmacy 06/09/25 documented as of this encounter
--- OUTSIDE RECORDS SUMMARY | 2025-08-05 11:39 | XMS_ITS | Encounter Summary ---
Author Organization [employer] Address [address] [facility] 7t [place] [address] Care Team Providers Care Forensic Toxicologist Name Role Phone Hernan Urbina MD Primary Care Prov ider Smitha Salas PharmD Unavailable [phone] Reason for Visit * Reason Comments Med Refill Encounter Details Date Type Department Care Team ([facility] st Contact Info) Description 08/02/2025 Refill [facility] CHC MED & PEDS 505 [place], [place] [phone] Christopher Spence MD 505 [place] [address] Social History Tobacco Use Types Packs/Day Years [...] 1:30 PM EDT Medication Management [facility] MED & PEDS [address] [place] [address] Smitha Salas, PharmD 230 [place] [address] 11/04/2025 2:15 PM EST Office Visit [facility] ADULT DENTAL 505 [place] [address] Domingo Spence documented as of this encounter Visit Diagnoses Not on filedocumented in this encounter Additional Health Concerns Assessment Noted Time PHQ-9 Depression Total Score: 2 12/21/19 8:57 AM EST documented as of this encounter Care Teams Forensic Toxicologist Relationship Specialty Start Date End Date Hernan Urbina MD [address] [place] [address] PCP - General Internal Medicine 01/21/25 Smitha Salas, PharmD [address] [place] [address] Pharmacist Pharmacy 06/09/25 documented as of this encounter
--- OUTSIDE RECORDS SUMMARY | 2025-08-05 11:40 | XMS_ITS | Encounter Summary ---
Author Organization [employer] Address [address] [facility] 7t [place] [address] Care Team Providers Care Metal Casket Maker Name Role Phone Hernan Urbina MD Primary Care Prov ider Smitha Salas PharmD Unavailable [phone] Reason for Visit * Reason Onset Date Comments Med Refill 05/31/2025 Encounter Details Date Type Department Care Team ([facility] Contact Info) Description 05/31/2025 Telephone [facility] CHC MED & PEDS [address] [place] [address] Hernan Urbina MD 505 [place] [address] Med Refill Social History Tobacco Use Types [...] - 05/31/2025 3:27 PM EDT [facility]. Medications needing refill : dapagliflozin (Farxiga) 10 MG fluticasone (Flovent HFA) 110 MCG/ACT inhaler Ventolin HFA 108 (90 Base) MCG/ACT inhaler glucose blood (FREESTYLE LITE) test strip Lancets To be sent to: [facility] - [place], [place] - [address] [place] [address] documented in this encounter Plan of Treatment Upcoming Encounters Date Type Department Care Team (Late st Contact Info) Description 08/08/2025 1:30 PM EDT Medication Management [facility] MED & PEDS 505 [place] [address] Smitha Salas, PharmD 230 [place], [place] [phone] 11/04/2025 2:15 PM EST Office Visit [facility] CHC ADULT DENTAL [address] [place] [address] Domingo Spence documented as of this encounter Visit Diagnoses Not on filedocumented in this encounter Additional Health Concerns Assessment Noted Time PHQ-9 Depression Total Score: 2 12/21/19 25 8:57 AM EST documented as of this encounter Care Teams Metal Casket Maker Relationship Specialty Start Date End Date Hernan Urbina MD 505 [place] [address] PCP - General Internal Medicine 01/21/25 Smitha Salas, JessD [address] [place] [address] Pharmacist Pharmacy 06/09/25 documented as of this encounter
--- OUTSIDE RECORDS SUMMARY | 2025-08-05 11:40 | XMS_ITS | Clinical Summary ---
Author Organization [employer] Address [address] [place] [address] Care Team Providers Care Managing Director Name Role Phone Hernan Urbina MD Primary Care Prov ider Smitha Salas PharmD Unavailable [phone] Allergies Active Allergy Reactions Criticality Noted Date [...] [facility]: 6 years ago due to [place] s/p stent x2 Pmhx: DM, HTN, Cholesterol, [place] s/p stent x2, CHF, atrial fibrillation Pshx: [...] 08/04/2025 2:45 PM EDT Office Visit [facility] [address] [place] [address] Stanley Miller CNP Chronic right-sided low back pain with right-sided sciatica (Primary Dx); Type 2 diabetes mellitus with diabetic peripheral angiopathy without gangrene, without long-term current use of insulin ([facility]) 08/04/2025 Travel 08/04/2025 Telephone [facility] [address] [place] [address] Hernan Urbina MD Nurse Triage 08/02/2025 Refill [facility] [address] [place] [address] Christopher Spence MD 08/01/2025 Travel 07/19/2025 1:00 PM EDT Telemedicine [facility] [address] [place] [address] Hernan Urbina MD Primary hypertension (Primary Dx); Type 2 diabetes mellitus with diabetic peripheral angiopathy without gangrene, without long-term current use of insulin ([facility]/HCC); Screening for colon cancer 07/19/2025 Travel 07/18/2025 Telephone [facility] [address] [place] [address] Hernan Urbina MD CHART PREP 07/08/2025 Travel 07/08/2025 Refill [facility] [address] [place] [address] Hernan Urbina MD 07/07/2025 Refill [facility] [address] [place] [address] Hernan Urbina MD 07/01/2025 Travel 06/20/2025 Telephone [facility] [address] [place] [address] Hernan Urbina MD Medication Question 06/10/2025 Refill [facility] [address] [place] [address] Smitha Salas, PharmD 06/09/2025 Travel 06/03/2025 Travel 05/31/2025 Telephone [facility] [address] [place] [address] Hernan Urbina MD Med Refill 05/25/2025 Telephone [facility] [address] [place] [phone] Hernan Urbina MD 05/18/2025 Telephone [facility] [address] [place] [phone] Hernan Urbina MD 05/16/2025 11:30 AM EDT Office Visit [facility] [address] [place] [address] Hernan Urbina MD Multiple joint pain (Primary Dx); Type 2 diabetes mellitus with diabetic peripheral angiopathy without gangrene, without long-term current use of insulin (CMS/HCC) 05/16/2025 Orders Only [facility] [address] [place] [address] Hernan Urbina MD Type 2 diabetes mellitus with diabetic peripheral angiopathy without gangrene, without long-term current use of insulin (CMS/HCC) (Primary Dx) 05/16/2025 Telephone [facility] [address] [place] [address] Smtiha Salas, PharmD 05/16/2025 Refill [facility] [address] [place] [address] Hernan Urbina MD 05/16/2025 Travel 05/10/2025 Travel 05/09/2025 Refill [facility] [address] [place] [address] Hernan Urbina MD 05/09/2025 Telephone [facility] [address] [place] [address] Hernan Urbina MD Nurse Triage 05/06/2025 Orders Only [facility] External Provider, [facility] from Last 3 Months Immunizations Immunization [...] 08/08/2025 1:30 PM EDT Medication Management [facility] [address] [place] [address] Smitha Salas, JessD [address] [place] [address] 11/04/2025 2:15 PM EST Office Visit [facility] [address] [place] [address] Domingo Spence Health Maintenance Due Date Last [...] low back pain with right-sided sciatica POCT URINALYSIS DIPSTICK Routine 08/04/2025 3:03 PM EDT Chronic right-sided low back pain with right-sided sciatica POCT GLUCOSE Routine 08/04/2025 3:03 PM EDT Type 2 diabetes mellitus with diabetic peripheral angiopathy without gangrene, without long-term current use of insulin (HCC) POCT GLYCATED HEMOGLOBIN, TOTAL Routine 08/04/2025 3:02 [...] Recently Relevant to Health Maintenance Results * XR Lumbar Spine 2-3 Views (08/05/2025 11:11 AM EDT) Anatomical Region Laterality Modality Spine, L-spine Radiographic Blanca ging 08/05/2025 11:1 1 AM EDT Narrative 08/05/2025 11:31 AM EDT [place] [address] XRay Report Signed Patient: Meena Hidalgo MR#: [id number] 061 : 1955 Acct:[id number] Age/Sex: 70 / F ADM Date: 08/05/25 Loc: CURLY Attending Dr: Stanley Miller ROOM CLERK Ordering Physician: Stanley Miller NP Date of Service: 08/05/25 Procedure(s): XR lumbar spine 2-3V Accession Number(s): [id number] cc: Hernan Urbina MD; Stanley Miller NP [...] 08/05/25 1128 DD/ 1111 TD/TT: 08/05/25 1115 Associate Financial Analyst: Procedure Note Cheikhottraceinterpreter, Image - 08/05/[address] [address] XRay Report Signed Patient: Tiffanie Hidalgo#: [id number] 061 : 6Acct:[id number] Age/Sex: 70 / FADM Date: 08/05/25 Loc: HO.XRAY Attending Dr: Stanley Miller ROOM CLERK Ordering Physician: Stanley Miller NP Date of Service: 08/05/25 Procedure(s): XR lumbar spine 2-3V Accession Number(s): [id number] cc: Hernan Urbina MD; Stanley Miller NP [...] 08/05/25 1128 DD/ 1111 TD/TT: 08/05/25 1115 Associate Financial Analyst: Stanley Miller CATTLE [employer]IPPER IMG XR PROCEDURES Final R esult * (ABNORMAL) CBC auto differential (08/04/2025 3:23 PM EDT) White Blood Count 7.8 4.8 - 10.8 X10*3/uL [facility] Red Blood Count 4.37 4.20 - 5.50 X10*6/uL [facility] Hemoglobin 13.5 12.0 - 16.0 g/dl [facility] Hematocrit 40.8 37.0 - 47.0 % [facility] Mean Corpuscular Volume 93.4 80.0 - 98.0 fL [facility] Mean Corpuscular Hemoglobin 30.9 27.0 - 33.0 pg [facility] Mean Corpuscular HGB Conc 33.1 31.0 - 35.0 g/dl [facility] Red Cell Distribution Width 11.5 11.0 - 16.0 % [facility] Platelet Count 245 160 - 400 X10*3/uL [facility] Mean Platelet Volume 11.5 9.4 - 12.3 fL [facility] Neutrophils Percent Auto 69.8 45 - 73 % [facility] Imm Gran Pct Auto 0.1 0.0 - 0.4 % [facility] Lymphocytes Percent Auto 17.2(L) 20 - 40 % [facility] Monocytes Percent Auto 10.9 2 - 11 % [facility] Eosinophils Percent Auto 1.7 0 - 4 % [facility] Basophils Percent Auto 0.3 0 - 2 % [facility] NRBC Pct Auto 0.0 0.0 - 0.2 /100WBC [facility] Neutrophils Absolute Auto 5.4 2.0 - 8.3 x10*3/uL [facility] Imm Gran Abs Auto 0.01 0.00 - 0.03 X10*3/uL [facility] Lymphocytes Absolute Auto 1.3 1.2 - 4.9 X10*3/uL [facility] Monocytes Absolute Auto 0.9 0.1 - 1.2 X10*3/uL [facility] Eosinophils Absolute Auto 0.1 0.0 - 0.4 X10*3/uL [facility] Basophils Absolute Auto 0.0 0.0 - 0.2 X10*3/uL [facility] NRBC Abs Auto 0.000 0.0 - 0.012 X10*3/uL [facility] Blood Venous blood specimen / Unknown 08/04/2025 3:23 PM EDT 08/04/2025 5:36 PM EDT [facility] LAB BLOOD ORDERABLES Violetta l Result Performing Organization Address [facility]/ZIP Co de Phone Number [facility] [address] [place] [phone] * Sed Rate by Modified W[place]gren (08/04/2025 3:23 PM EDT) Erythrocyte Sedimentation Rate 15 0 - 20 MM/HR [facility] Comment:Patients with polycy themia and many hemoglobin abnormalitiesmay have depressed sed rates whereas patients with anemiamay have elevated sed rates. Blood Venous blood specimen / Unknown 08/04/2025 3:23 PM EDT 08/04/2025 5:36 PM EDT [facility] LAB BLOOD ORDERABLES Violetta l Result Performing Organization Address [facility] de Phone Number [facility] [address] [place] [phone] * (ABNORMAL) C-reactive Protein (08/04/2025 3:23 PM EDT) Pathologist [facility] C Reactive Protein 1.05(H) < or = 0.50 mg/dL [facility] Blood Venous blood specimen / Unknown 08/04/2025 3:23 PM EDT 08/04/2025 5:36 PM EDT [facility] LAB BLOOD ORDERABLES Violetta l Result Performing Organization Address [facility] Co de Phone Number [facility] [address] [place] [phone] * (ABNORMAL) POCT glucose manually resulted (08/04/2025 3:03 PM EDT) Only the most recent of2 resultswithin the time period is included. Glucose Blood, POC 286(A) 60 - 200 mg/dL QC Media Lot # Comment:[id number] Lot# Expiration Date Comment:10/22/2025 Blood Capillary blood specimen / Unknown 08/04/2025 3:03 PM EDT Result [facility] POINT OF CARE TEST ENTER/ EDIT [...] Appearance, UA clear QC Media Lot # Comment:[id number] Lot# Expiration Date Comment:05/02/2026 Urine 08/04/2025 3:03 PM EDT Result [facility] POINT OF CARE TEST ENTER/ EDIT ORDERABLES Final Result * (ABNORMAL) POCT A1c (08/04/2025 3:02 PM EDT) Only the most recent of2 resultswithin the time period is included. Hemoglobin A1C 11.8(A) 4.0 - 5.7 % QC Media Lot # Comment:[id number] Lot# Expiration Date Comment:02/24/2027 Blood 08/04/2025 3:02 PM EDT Result [facility] POINT OF CARE TEST ENTER/ EDIT ORDERABLES Final Result * CT Cervical Spine w/o Contrast (05/06/2025 4:53 PM EDT) Anatomical Region Laterality Modality Spine, C-spine Computed Tomogra phy 05/06/2025 4:53 PM EDT Narrative 05/06/2025 4:54 PM EDT [address] [address] [address] Scan Report Signed Patient: Meena Hidalgo MR#: [id number] 061 : 1955 Acct:[id number] Age/Sex: 70 / F ADM Date: 05/06/25 Loc: HO.ED Attending Dr: Ordering Physician: Karla Ramos Date of Service: 05/06/25 Procedure(s): CT cervical spine wo IV con Accession Number(s): [id number] cc: Hernan Urbina MD; Karla Ramos Report Number: [id number]: Total DLP = 358.78 mGy-cm CLINICAL HISTORY: [...] signed by Carlos Suarez MD in OV> 05/06/251653 DD/ 52 TD/TT: 05/06/251652 Associate Financial Analyst: Procedure Note Donottraceinterpreter, Image - 05/06/[address] [place] [address] [address] Scan Report Signed Patient: Tiffanie Hidalgo#: [id number] 061 : 6Acct:[id number] Age/Sex: 70 / FADM Date: 05/06/25 Loc: HO.ED Attending Dr: Ordering Physician: Karla Ramos Date of Service: 05/06/25 Procedure(s): CT cervical spine wo IV con Accession Number(s): [id number] cc: Hernan Urbina MD; Karla Ramos Report Number: [id number]: Total DLP = 358.78 mGy-cm CLINICAL HISTORY: [...] signed by Carlos Suarez MD in OV> 05/06/251653 DD/ 52 TD/TT: 05/06/251652 Associate Financial Analyst: [facility] External Provider IMG CT PROCEDURES Edited Result - Final * CT Head w/o Contrast (05/06/2025 4:51 PM EDT) Anatomical Region Laterality Modality Head, Neck Computed Tomogra phy 05/06/2025 4:51 PM EDT Narrative 05/06/2025 4:53 PM EDT [place] [address] CT Scan Report Signed Patient: Meena Hidalgo MR#: [id number] 061 : 1955 Acct:[id number] Age/Sex: 70 / F ADM Date: 05/06/25 Loc: HO.ED Attending Dr: Ordering Physician: Karla Ramos Date of Service: 05/06/25 Procedure(s): CT head/brain wo IV con Accession Number(s): [id number] cc: Hernan Urbina MD; Karla Ramos Report Number: [id number]: Total DLP = 643.76 mGy-cm CLINICAL HISTORY: [...] in OV> 05/06/251652 DD/ 50 TD/TT: 05/06/251650 Associate Financial Analyst: Procedure Note Cheikhotsumitter, Image - 05/06/[address] [place] [address] [address] Scan Report Signed Patient: Tiffanie Hidalgo#: [id number] 061 : 6Acct:[id number] Age/Sex: 70 / FADM Date: 05/06/25 Loc: HO.ED Attending Dr: Ordering Physician: Karla Ramos Date of Service: 05/06/25 Procedure(s): CT head/brain wo IV con Accession Number(s): [id number] cc: Hernan Urbina MD; Karla Ramos Report Number: [id number]: Total DLP = 643.76 mGy-cm CLINICAL HISTORY: [...] in OV> 05/06/251652 DD/ 50 TD/TT: 05/06/251650 Associate Financial Analyst: [facility] External Provider IMG CT PROCEDURES Edited Result - Final * XR Shoulder 2+ Views Right (05/06/2025 4:10 PM EDT) Anatomical Region Laterality Modality Upper Extremities, Shoulder Right Radi ographic Imaging 05/06/2025 4:10 PM EDT Narrative 05/06/2025 4:11 PM EDT [address] [address] XRay Report Signed Patient: Menea Hidalgo MR#: [id number] 061 : 1955 Acct:[id number] Age/Sex: 70 / F ADM Date: 05/06/25 Loc: HO.ED Attending Dr: Ordering Physician: Karla Ramos Date of Service: 05/06/25 Procedure(s): XR shoulder RT min 2V Accession Number(s): [id number] cc: Hernan Urbina MD; Karla Ramos CLINICAL [...] 05/06/25 1611 DD/ 1610 TD/TT: 05/06/25 1610 Associate Financial Analyst: Procedure Note Donotuseinterpreter, Image - 05/06/[address] [address] XRay Report Signed Patient: Ramin HidalgoR#: [id number] 061 : 6Acct:[id number] Age/Sex: 70 / FADM Date: 05/06/25 Loc: HO.ED Attending Dr: Ordering Physician: Karla Ramos Date of Service: 05/06/25 Procedure(s): XR shoulder RT min 2V Accession Number(s): [id number] cc: Hernan Urbina MD; Karla Ramos CLINICAL [...] 05/06/25 1611 DD/ 1610 TD/TT: 05/06/25 1610 Associate Financial Analyst: [facility] External Provider IMG XR PROCEDURES Edited Result - Final * XR Elbow 1-2 Views Right (05/06/2025 4:09 PM EDT) Anatomical Region Laterality Modality Upper Extremities, Elbow Right Radiogr aphic Imaging 05/06/2025 4:09 PM EDT Narrative 05/06/2025 4:10 PM EDT [place] [address] XRay Report Signed Patient: Meena Hidalgo MR#: [id number] 061 : 1955 Acct:[id number] Age/Sex: 70 / F ADM Date: 05/06/25 Loc: HO.ED Attending Dr: Ordering Physician: Karla Ramos Date of Service: 05/06/25 Procedure(s): XR elbow RT 2V Accession Number(s): [id number] cc: Hernan Urbina MD; Karla Ramos CLINICAL [...] OV> 05/06/25 1610 DD/ 1609 TD/TT: 05/06/25 160 Associate Financial Analyst: Procedure Note Donotuseinterpreter, Image - 05/06/2025 [place] [address] XRay Report Signed Patient: Tiffanie Hidalgo#: [id number] 061 : 6Acct:[id number] Age/Sex: 70 / FADM Date: 05/06/25 Loc: HO.ED Attending Dr: Ordering Physician: Karla Ramos Date of Service: 05/06/25 Procedure(s): XR elbow RT 2V Accession Number(s): [id number] cc: Hernan Urbina MD; Karla Ramos CLINICAL [...] document has been electronically signed by: Carlos Suarze MD on 05/06/2025 16:09:02 Dictated By: Carlos Suarez MD Signed By: <Electronically signed by Carlos Suarez MD in OV> 05/06/25 1610 DD/ 1609 TD/TT: 05/06/25 1609 Associate Financial Analyst: [facility] External Provider IMG XR PROCEDURES Edited Result - Final * BI Mammogram Screening Tomosynthesis Bilateral (03/22/2025 9:45 AM EDT) Anatomical Region Laterality Modality Breast Bilateral Mammography 03/22/2025 9:45 AM EDT Narrative 03/28/2025 9:15 PM EDT [address] [place], [place] [address] Mammography Report Signed Patient: Meean Hidalgo MR#: [id number] 061 : 1955 Acct:[id number] Age/Sex: 70 / F ADM Date: 03/22/25 Loc: HO.MAMMO Attending Dr: Hernan Aaron MD Ordering Physician: Hernan Urbina MD Res ults: 1Negative Date of Service: 03/22/25 Follow Up: 1 Year From Orig inal Mammogram Procedure(s): MM tomosynthesis screening BI Accession Number(s): [id number] cc: Hernan Urbina MD EXAMINATION: MM SCREENING [...] Denise Fernandez DO 03/28/2025 09:12 PM EDT RP Dictated By: Denise Fernandez DO Signed By: <Electronically signed by Denise Fernandez DO in OV> 03/28/252111 DD/ 0945 TD/TT: 03/22/25 1007 Associate Financial Analyst: Procedure Note Donotuseinterpreter, Image - 03/28/[facility] [address] [place] [address] Mammography Report Signed Patient: Tiffanie Hidalgo#: [id number] 061 : 1955cct:[id number] Age/Sex: 70 / FADM Date: 03/22/25 Loc: HO.MAMMO Attending Dr: Hernan Aaron MD Ordering Physician: Hernan Urbina ults: 1Negative Date of Service: 03/22/25Follow Up: 1 Year From Orig inal Mammogram Procedure(s): MM tomosynthesis screening BI Accession Number(s): [id number] cc: Hernan Urbina MD EXAMINATION: MM SCREENING [...] Denise Fernandez DO 03/28/2025 09:12 PM EDT RP Dictated By: Denise Fernandez DO Signed By: <Electronically signed by Denise Fernandez DO in OV> 03/28/25 2112 DD/ 0945 TD/TT: 03/22/25 1007 Associate Financial Analyst: Hernan Aaron MD IMG BI PROCEDURES Edited Result - Final * (ABNORMAL) Albumin, Random Urine W/Creatinine (01/21/2025 10:40 AM EDT) Creatinine, Urine 72.43 mg/dL [facility] Microalbumin Urine 27.0 mg/L [facility] Microalbum Creatinine Ratio Ur 37.2(H) <30 ug/mg cr [facility] Comment:Albumin/Creatinine R atio Reference Ranges: Normal: < 30 ug/mg creatinine Microalbuminuria: 30 - 300 ug/mg creatinineClinical Albuminuria: > 300 ug/mg creatinine Urine (Urine, Random) 01/21/2025 10:40 AM EDT 01/21/2025 2:08 PM EDT us Hernan Aaron MD LAB URINE ORDERABL ES Final Result [facility] [address] [place] [phone] * (ABNORMAL) Lipid Panel, Standard (01/21/2025 10:39 AM EDT) Triglycerides 159(H) <150 mg/dL [facility] Comment:Desirable Triglyceri de: less than 150 mg/dLBorderline High Triglyceride 150-199 mg/dLHigh Triglyceride: 200-499 mg/dLVery High Triglyceride: greater than or equal to 5OO mg/dL Cholesterol 332(H) <200 mg/dL [facility] Comment:Desirable Cholestero l: less than 200 mg/dLBorderline High Cholesterol: 200-239 mg/dLHigh Cholesterol: greater than 239 mg/dL LDL Cholesterol Calculated 247(H) <100 mg/dL [facility] Comment:Desirable LDL: less than 100 mg/dLNear Optimal/Above Optimal LDL: 110- 129 mg/dLBorderline High LDL: 130-159 mg/dLHigh LDL: 160-189 mg/dLVery High LDL: greater than or equal to 190 mg/dL HDL Cholesterol 54 >40 mg/dL [facility] Comment:Desirable HDL: great er than 40 mg/dL Note: This HDL assay may give artificially low results in patients with liver disease. Blood Venous blood specimen / Unknown 01/21/2025 10:39 AM EDT 01/21/2025 2:05 PM EDT us Hernan Aaron MD LAB BLOOD ORDERABL ES Final Result Performing Organization Address [facility] Co de Phone Number [facility] [address] [place] [phone] * Hepatitis C Antibody with Reflex to HCV, RNA, Quantitative, Real-Time PCR (01/21/2025 10:34 AM EDT) Hepatitis C Antibody Nonreactive Nonreactive [facility] Comment:Antibodies to HCV no t detected; does not exclude early acuteHCV infection. Blood Venous blood specimen / Unknown 01/21/2025 10:34 AM EDT 01/21/2025 2:05 PM EDT us Hernan Aaron MD LAB BLOOD ORDERABL ES Final Result Performing Organization Address [facility] Co de Phone Number [facility] [address] [place] [phone] from Last 3 Months or Most Recently Relevant [place] [id number] [facility] LONG-TERM OPTIONS (HMO D-SNP) [facility] STANDARD DENTAL [facility] [place] [id number] Care Teams Managing Director Relationship Specialty Start Date End Date Hernan Urbina MD [address] [place] [address] [place] [address] PCP - General Internal Medicine 01/21/25 Smitha Salas, PharmD [address] [place] [phone] Pharmacist Pharmacy 06/09/25
--- OUTSIDE RECORDS SUMMARY | 2025-08-05 11:40 | XMS_ITS | Encounter Summary ---
Author Organization [employer] Address [address] [place] [address] Care Team Providers Care Wood Sash And Frame Carpenter Name Role Phone Hernan Urbina MD Primary Care Prov ider Smitha Salas PharmD Unavailable [phone] Encounter Details Date Type Department Care Team (Late st Contact Info) Description 01/24/2025 Orders Only [facility] [address] [place] [address] Hernan Urbina MD [address] [place] [address] Social History Tobacco Use Types Packs/Day Years [...] PM EDT Medication Management [facility] [address] [place] [address] Smitha Salas PharmD [address] [place] [address] 11/04/2025 2:15 PM EST Office Visit [facility] [address] [place] [address] Domingo Spence documented as of this encounter Visit Diagnoses Not on filedocumented in this encounter Additional Health Concerns Assessment Noted Time PHQ-9 Depression Total Score: 2 12/21/19 25 8:57 AM EST documented as of this encounter Care Teams Wood Sash And Frame Carpenter Relationship Specialty Start Date End Date Hernan Urbina MD [address] [place] [address] PCP - General Internal Medicine 01/21/25 Smitha Salas PharmD [address] [place] [address] Pharmacist Pharmacy 06/09/25 documented as of this encounter
--- OUTSIDE RECORDS SUMMARY | 2025-08-05 11:40 | XMS_ITS | Encounter Summary ---
Author Organization [employer] Address [address] [place] [address] Care Team Providers Care Health Science Specialist Name Role Phone Hernan Urbina MD Primary Care Prov ider Smitha Salas PharmD Unavailable [phone] Encounter Details Date Type Department Care Team [...] 1:30 PM EDT Medication Management [facility] [address] [place] [address] Smitha Salas PharmD [address] [place] [address] 11/04/2025 2:15 PM EST Office Visit [facility] [address] [place] [address] Domingo Spence documented as of this encounter Visit Diagnoses Not on filedocumented in this encounter Additional Health Concerns Assessment Noted Time PHQ-9 Depression Total Score: 2 12/21/19 8:57 AM EST documented as of this encounter Care Teams Health Science Specialist Relationship Specialty Start Date End Date Hernan Urbina MD [address] [place] [address] PCP - General Internal Medicine 01/21/25 Smitha Salas PharmD [address] [place] [address] Pharmacist Pharmacy 06/09/25 documented as of this encounter
--- OUTSIDE RECORDS SUMMARY | 2025-08-05 11:40 | XMS_ITS | Encounter Summary ---
Author Organization [facility] Address [address] [place] [address] Care Team Providers Care Soap Press Feeder Name Role Phone Hernan Urbina MD Primary Care Prov ider Smitha Salas PharmD Unavailable [phone] Encounter Details Date Type Department Care Team (Late st Contact Info) Description 11/15/2024 Telephone [facility] [address] [place], [place] [phone] Neha Felder DMD Social History Tobacco Use [...] Description 08/08/2025 1:30 PM EDT Medication Management [facility] [address] [place], [place] [phone] Smitha Salas, PharmD [address] [place] [address] 11/04/2025 2:15 PM EST Office Visit [facility] [address] [place] [address] Domingo Spence documented as of this encounter Visit Diagnoses Not on filedocumented in this encounter Care Teams Soap Press Feeder Relationship Specialty Start Date End Date Hernan Urbina MD [address] [place] [address] PCP - General Internal Medicine 01/21/25 Smitha Salas PharmD [address] [place] [phone] Pharmacist Pharmacy 06/09/25 documented as of this encounter
--- OUTSIDE RECORDS SUMMARY | 2025-08-05 11:40 | XMS_ITS | Encounter Summary ---
Author Organization [facility] [facility] Address [address] [facility] 7 [place] [address] Care Team Providers Care Case Sealer Name Role Phone Hernan Urbina MD Primary Care Prov ider Smitha Salas PharmD Unavailable [phone] Encounter Details Date Type Department Care Team (Latest Contact Info) Description 04/15/2022 Abstract [facility] CONVERSIONS Dental, Provider, DDS Social History [...] Description 08/08/2025 1:30 PM EDT Medication Management [facility] MED & PEDS [address] [place], [place] [phone] Smitha Salas, PharmD [address] [place] [address] 11/04/2025 2:15 PM EST Office Visit [facility] ADULT DENTAL [address] [place], [place] [phone] Domingo Spence documented as of this encounter Visit Diagnoses Not on filedocumented in this encounter Care Teams Case Sealer Relationship Specialty Start Date End Date Hernan Urbina MD [address] [place], [place] PCP - General Internal Medicine 01/21/25 Smitha Salas, JessD [address] [place] [address] Pharmacist Pharmacy 06/09/25 documented as of this encounter
--- OUTSIDE RECORDS SUMMARY | 2025-08-05 11:40 | XMS_ITS | Encounter Summary ---
Author Organization [facility] Address [address] [facility] 7 [place] [address] Care Team Providers Care Water And Gas Helper Name Role Phone Hernan Urbina MD Primary Care Prov ider Smitha Salas PharmD Unavailable [phone] Encounter Details Date Type Department Care Team (Latest Contact Info) Description 04/14/2019 Abstract [facility] CONVERSIONS Dental, Provider, DDS Social History Tobacco [...] [facility] MED & PEDS [address] [place] [address] Smitha Salas, PharmD [address] [place] [address] 11/04/2025 2:15 PM EST Office Visit [facility] ADULT DENTAL [address] [place] [address] Domingo Spence documented as of this encounter Visit Diagnoses Not on filedocumented in this encounter Care Teams Water And Gas Helper Relationship Specialty Start Date End Date Hernan Urbina MD [address] [place], [place] PCP - General Internal Medicine 01/21/25 Smitha Salas, JessD [address] [place] [address] Pharmacist Pharmacy 06/09/25 documented as of this encounter
--- OUTSIDE RECORDS SUMMARY | 2025-08-05 11:40 | XMS_ITS | Encounter Summary ---
Author Organization [facility] Address [address] [place] [address] 7 [place] [address] Care Team Providers Care Geodetic Surveyor Technologist Name Role Phone Hernan Urbina MD Primary Care Prov ider Smitha Salas PharmD Unavailable [phone] Encounter Details Date Type Department Care Team (Late Contact Info) Description 11/01/2022 Abstract [facility] ADULT DENTAL [address] [place] [address] Thompson Cobb DDS 230 [place] [address] Social History Tobacco Use Types Packs/Day Years [...] Description 08/08/2025 1:30 PM EDT Medication Management [facility] MED & PEDS [address] [place] [address] Smitha Salas, PharmD [address] [place] [address] 11/04/2025 2:15 PM EST Office Visit [facility] ADULT DENTAL [address] [place] [address] Domingo Spence documented as of this encounter Visit Diagnoses Not on filedocumented in this encounter Care Teams Geodetic Surveyor Technologist Relationship Specialty Start Date End Date Hernan Urbina MD 505 [place] [address] PCP - General Internal Medicine 01/21/25 Smitha Salas PharmD [address] [place] [address] Pharmacist Pharmacy 06/09/25 documented as of this encounter
--- OUTSIDE RECORDS SUMMARY | 2025-08-05 11:40 | XMS_ITS | Encounter Summary ---
Author Organization [facility] Address [address] [facility] [address] 7t [place] [address] Care Team Providers Care Lab Tester Name Role Phone Hernan Urbina MD Primary Care Prov ider Smitha Salas PharmD Unavailable [phone] Encounter Details Date Type Department Care Team (Late Contact Info) Description 08/10/2024 Telephone [facility] ADULT DENTAL [address] [place], [place] [phone] Neha Felder DMD Social History Tobacco Use [...] Description 08/08/2025 1:30 PM EDT Medication Management [facility] MED & PEDS [address], [place] [phone] Smitha Salas, PharmD 230 [place] [address] 11/04/2025 2:15 PM EST Office Visit [facility] ADULT DENTAL [address] [place] [address] Domingo Spence documented as of this encounter Visit Diagnoses Not on filedocumented in this encounter Care Teams Lab Tester Relationship Specialty Start Date End Date Hernan Urbina MD 505 [place] [address] PCP - General Internal Medicine 01/21/25 Smitha Salas PharmD [address] [place] [address] Pharmacist Pharmacy 06/09/25 documented as of this encounter
--- OUTSIDE RECORDS SUMMARY | 2025-08-05 11:40 | XMS_ITS | Encounter Summary ---
Author Organization [employer] Address [address] [facility] 7t [place] [address] Care Team Providers Care Assembler Bonding Name Role Phone Hernan Urbina MD Primary Care Prov ider Smitha Salas PharmD Unavailable [phone] Reason for Referral * Consultation (Routine) - Canceled Specialty Diagnoses / Procedures Referred By Contac t Referred To Contact Pharmacy Diagnoses Primary hypertension Hernan Urbina MD [address] [place] [address] Phone: tel: fax: Referral ID Status Reason Start Date Expiration Date V isits Requested Visits Authorized [id number] Canceled Continuity of Care 05/17/2025 05/17/2026 6 6 Encounter Details Date Type Department Care Team ([facility] st Contact Info) Description 04/05/2025 Orders Only [facility] MED & PEDS [address] [place], [place] [phone] Hernan Urbina MD [address] [place], [place] [phone] Primary hypertension (Primary Dx) Social History Tobacco [...] [facility] [address] [place] [address] Smitha Salas PharmD [address] [place] [address] 11/04/2025 2:15 PM EST Office Visit [facility] 505 [place] [address] Domingo Spence Scheduled Referrals Name Type Priority [...] documented as of this encounter Care Teams Assembler Bonding Relationship Specialty Start Date End Date Hernan Urbina MD 505 [place] [address] PCP - General Internal Medicine 01/21/25 Smitha Salas PharmD [address] [place] [address] Pharmacist Pharmacy 06/09/25 documented as of this encounter
--- OUTSIDE RECORDS SUMMARY | 2025-08-05 11:40 | XMS_ITS | Encounter Summary ---
Author Organization [facility] Address [address] [place] [address] 7 [place] [address] Care Team Providers Care Electrical Engineering Intern Name Role Phone Hernan Urbina MD Primary Care Prov ider Smitha Salas PharmD Unavailable [phone] Reason for Visit * Reason Comments Med Refill Encounter Details Date Type Department Care Team ([facility] Contact Info) Description 09/12/2023 Refill [facility] MED & PEDS [address] [place] [address] Christopher Spence MD [address] [place] [address] Social History Tobacco Use Types Packs/Day Years [...] Upcoming Encounters Date Type Department Care Team ([facility] Contact Info) Description 08/08/2025 1:30 PM EDT Medication Management [facility] MED & PEDS [address] [place] [address] Smitha Salas, PharmD [address] [place] [address] 11/04/2025 2:15 PM EST Office Visit [facility] ADULT DENTAL [address] [place] [address] Domingo Spence documented as of this encounter Visit Diagnoses Not on filedocumented in this encounter Care Teams Electrical Engineering Intern Relationship Specialty Start Date End Date Hernan Urbina MD [address] [place] [address] PCP - General Internal Medicine 01/21/25 Smitha Salas PharmD [address] [place] [address] Pharmacist Pharmacy 06/09/25 documented as of this encounter
--- OUTSIDE RECORDS SUMMARY | 2025-08-05 11:40 | XMS_ITS | Encounter Summary ---
Author Organization [employer] Address [address] [facility] [address] 7t [place] [address] Care Team Providers Care District Fire Chief Name Role Phone Hernan Urbina MD Primary Care Prov ider Smitha Salas PharmD Unavailable [phone] Reason for Visit * Reason Onset Date Comments Appointment 05/20/2023 Encounter Details Date Type Department Care Team ([facility] st Contact Info) Description 05/20/2023 Telephone [facility] ADULT DENTAL [address] [place] [address] Thompson Cobb DDS [address] [place] [address] Appointment Social History Tobacco Use Types Packs/Day [...] Description 08/08/2025 1:30 PM EDT Medication Management [facility] MED & PEDS [address] [place] [address] Smitha Salas PharmD [address] [place] [address] 11/04/2025 2:15 PM EST Office Visit [facility] ADULT DENTAL [address] [place] [address] Domingo Spence documented as of this encounter Visit Diagnoses Not on filedocumented in this encounter Care Teams District Fire Chief Relationship Specialty Start Date End Date Hernan Urbina MD [address] [place] [address] PCP - General Internal Medicine 01/21/25 Smitha Salas PharmD [address] [place] [address] Pharmacist Pharmacy 06/09/25 documented as of this encounter
--- OUTSIDE RECORDS SUMMARY | 2025-08-05 11:40 | XMS_ITS | Encounter Summary ---
Author Organization [employer] [facility] Address [address] [facility] 7 [place] [address] Care Team Providers Care Consulting Services Manager Name Role Phone Hernan Urbina MD Primary Care Prov ider Smitha Salas PharmD Unavailable [phone] Encounter Details Date Type Department Care Team (Latest Contact Info) Description 02/02/2021 Abstract [facility] CONVERSIONS Dental, Provider, DDS Social [...] Description 08/08/2025 1:30 PM EDT Medication Management [facility] MED & PEDS [address] [place], [place] [phone] Smitha Salas, PharmD [address] [place] [address] 11/04/2025 2:15 PM EST Office Visit [facility] ADULT DENTAL [address] [place], [place] [phone] Domingo Spence documented as of this encounter Visit Diagnoses Not on filedocumented in this encounter Care Teams Consulting Services Manager Relationship Specialty Start Date End Date Hernan Urbina MD [address] [place], [place] PCP - General Internal Medicine 01/21/25 Smitha Salas, JessD [address] [place] [address] Pharmacist Pharmacy 06/09/25 documented as of this encounter
--- OUTSIDE RECORDS SUMMARY | 2025-08-05 11:41 | XMS_ITS | Patient Health Record ---
Author Organization [facility] Address [address] [facility] [place] [address] Care Team Providers Care Strip Stamp Straightener Name Role Phone Hernan Wasserman Primary Care Provider Unavailable Kathrine Cheema Unavailable [phone] Allergies Allergen (clinical drug ingredient) Drug/Non Drug [...] Polyneuropathy due to type 2 diabetes mellitus ([id number]) Type 2 diabetes mellitus with polyneuropathy (E11.42) Active confirmed Vital Signs Blood pressure diastolic 77 mm Hg 07/05/2025 Height 4ft 11in in 07/05/2025 Blood pressure systolic 130 mm Hg 07/05/2025 Weight 126 lbs 07/05/2025 BMI 25.45 kg/m2 07/05/2025 Encounters Encounter Location Date Provider Diagnosis [facility] [address] 11/16/2024 Kathrine Cheema Type 2 diabetes mellitus with polyneuropathy E11.42 ; Other hammer toe(s) (acquired), right foot M20.41 and Other hammer toe(s) (acquired), left foot M20.42 [facility] [address] 01/25/2025 Kathrine Cheema Type 2 diabetes mellitus with polyneuropathy E11.[address] [address] 04/05/2025 Kathrine Cheema Type 2 diabetes mellitus with polyneuropathy E11.42 ; Other hammer toe(s) (acquired), right foot M20.41 and Other hammer toe(s) (acquired), left foot M20.[address] [address] 07/05/2025 Kathrine Cheema Type 2 diabetes mellitus with polyneuropathy E11.[address] [address] 09/07/2024 Kathrine Cheema [address] [address] 09/07/2024 Kathrine Cheema [address] [address] 05/25/2025 Kathrnie Cheema Assessments Encounter Date Diagnosis (ICD Code) [...] Provider Name:Kathrine armando, 09/13/2025 03:30:00 PM, [address] [place], [address], Insurance Providers Payer Name Payer Address Payer Phone Subscriber Number Group Number Insured Name Patient Relationship to Insured Coverage Start Date Coverage End Date [facility] [employer] Claims [address] [place] [address] [phone] [id number] Meena Hidalgo Self - patient is the insured Medical (General) History Medical History History ICD Code type 2 diabetes depression/anxiety hyperlipidemia psychophysiological insomnia osteopenia adnexal mass HTN asthma [place] 02/24/19 fatty liver uterine fibroid Arthritis Back,Hip,and [...]
== END 2025-08-05 10:41 | disposition home or self-care (01) ==
LOC: HO.XRAY 10:40
PROVIDERS: PCP Internal Medicine
DX: M54.41 Lumbago with sciatica, right side (principal); G89.29 Other chronic pain
CPT/HCPCS: 72100

== ENCOUNTER → 2025-08-05 10:44 | Outpatient (BNV) | payer OTHER, SELFPAY | PROVIDERS: PCP Internal Medicine; Visit Provider Radiology Diagnostic Radiology | DX: M47.815 Spondylosis without myelopathy or radiculopathy, thoracolumbar region (principal) | CPT/HCPCS: 72100 ==

== ENCOUNTER 2025-08-12 20:54 | Emergency (ER) | payer OTHER, SELFPAY ==
--- NOTE | ~2025-08-12 | XR_ITS ---
CLINICAL HISTORY: pain 3 views lumbar spine Comparison: CR/SR - XR LUMBAR SPINE 2-3 VIEWS - 08/05/25 11:11 EDT Findings: Normal vertebral body alignment. Mild osteopenia. Diffuse idiopathic skeletal hyperostosis No fracture or dislocation. L5-S1: Moderate to severe DJD. IMPRESSION: 1. Moderate to severe degenerative joint disease at L5-S1. 2. Diffuse idiopathic skeletal hyperostosis. 3. Mild osteopenia. 4. No acute osseous abnormality. This document has been electronically signed by: Joni Art MD on 08/12/2025 22:16:54
--- NOTE | ~2025-08-12 | XR_ITS ---
CLINICAL HISTORY: pain 3 view, pelvis and right hip Comparison: None provided Findings: Mild osteopenia. No significant arthritic change. The soft tissues are unremarkable. Two separate surgical clips projected of the right inguinal region. IMPRESSION: 1. No acute osseous injury. This document has been electronically signed by: Joni Art MD on 08/12/2025 22:14:42
[2025-08-12 21:01] VITALS: BP 114/67; PULSE 89; RESP 20; TEMP 36.4; O2SAT 96; BMI 25.2
[2025-08-12 22:00] VITALS: BP 129/64; PULSE 82; RESP 14; TEMP 36.9; O2SAT 99
--- NOTE | 2025-08-12 22:11 | PC.NURSE ---
Addendum entered by Alyson Cage RN 08/12/25 22:11: notified primary nurse Original Note: pt medicated per jan.
--- NOTE | 2025-08-12 23:25 | ED.GENADULT ---
HPI - General Adult General Chief complaint: Back Pain/Injury Stated complaint: Hip pain Time Seen by Provider: 08/12/25 21:32 Source: patient Limitations: no limitations History of Present Illness ED Provider: Dayan Damon PA-C HPI narrative: 70-year-old female with a history of diabetes, hypertension, hyperlipidemia, paroxysmal AFib on apixaban, known coronary artery disease, known arthritis and osteopenia, asthma, who presents with right low back pain and hip pain for a month. Patient states she fell a month ago, then developed discomfort in the right back and hip. Patient has been assessed multiple x4 her discomfort following the fall, she has had negative imaging. She has been using oxycodone without relief of symptoms. Patient has pending appointment with [facility] this coming week. Denies radiation of pain from the back, weakness of lower extremities, paresthesia, urinary retention or bowel incontinence. Patient denies new trauma. Related Data Home Medications ?Medication ?Instructions ?Recorded ?Confirmed lancets 28 gauge (FreeStyle #100 ea 08/03/20 01/10/25 Lancets) metoprolol succinate 200 mg 200 mg PO DAILY 06/26/21 01/10/25 tablet,extended release 24 hr nitroglycerin 0.4 mg sublingual 0 mg sublingual 09/19/22 01/10/25 tablet multivitamin 1 tab PO DAILY 10/07/23 01/10/25 artificial drp ophthalmic (eye) 09/23/24 01/10/25 tears([id number]) 0.1 %-0.3 %-0.2 % eye drops celecoxib 100 mg capsule (Celebrex) 100 mg PO DAILY PRN 10/15/24 01/10/25 Previous Rx's ?Medication ?Instructions ?Recorded blood sugar diagnostic (FreeStyle 1 strip miscellaneous BID for 06/18/22 Lite Strips) diabetes mellitus #100 strips rosuvastatin 5 mg tablet 5 mg PO DAILY #30 tabs 04/29/23 fluticasone propionate 110 1 puff inhalation Q12H #12 grams 12/11/23 mcg/actuation HFA aerosol inhaler lisinopril 5 mg tablet 5 mg PO DAILY #90 tabs 02/27/24 docusate sodium 100 mg capsule 100 mg PO DAILY #90 caps 07/13/24 albuterol sulfate 90 mcg/actuation 2 puff inhalation Q6H PRN 08/27/24 aerosol inhaler shortness of breath or wheezing #8.5 grams acetaminophen 500 mg tablet 500 mg PO Q6H PRN fever or pain 09/06/24 (Tylenol Extra Strength) #14 tabs cyclobenzaprine 5 mg tablet 5 mg PO BID PRN pain (scale score 09/10/24 7-10) #30 tabs dapagliflozin propanediol 10 mg 10 mg PO QAM #90 tabs 10/15/24 tablet (Farxiga) lorazepam 1 mg tablet (Ativan) 1 mg PO ONCE anxiety #1 tab 11/11/24 ezetimibe 10 mg tablet 10 mg PO DAILY #90 tabs 12/16/24 sitagliptin phosphate 100 mg 100 mg PO DAILY #30 tabs 02/15/25 tablet (Januvia) hydroxyzine HCl 10 mg tablet 10 mg PO .qd PRN hives #30 tabs 02/16/25 mirabegron 25 mg tablet,extended 25 mg PO DAILY #30 tabs 02/16/25 release 24 hr (Myrbetriq) apixaban 5 mg tablet (Eliquis) 5 mg PO BID #180 tabs 03/03/25 dapagliflozin propanediol 10 mg 10 mg PO DAILY #90 tabs 03/03/25 tablet (Farxiga) estradiol 0.01% (0.1 mg/gram) See Rx Instructions .Route 3XW 90 05/19/25 vaginal cream days #42.5 grams vibegron 75 mg tablet 75 mg PO DAILY 30 days #30 tabs 07/12/25 ketorolac 10 mg tablet 10 mg PO Q6H PRN pain #20 tabs 08/13/25 Allergies Allergy/AdvReac Type Severity Reaction Status Date / Time atorvastatin (From LIPITOR) AdvReac Intermediate STOMACH Verified 08/12/25 21:04 ACHE oxycodone (From OXYCONTIN) AdvReac Intermediate SENSORY Verified 08/12/25 21:04 HALLUCINATIONS sulfamethoxazole (From AdvReac Intermediate chills Verified 08/12/25 21:04 Bactrim) vitamin d AdvReac Intermediate Hallucinati Uncoded 05/06/25 14:57 ons Review of Systems Review of Systems: Yes all other systems are reviewed and are negative Constitutional: Constitutional: Denies fatigue and Denies fever(s) Cardiovascular: Cardiovascular: Denies chest pain and Denies dyspnea Respiratory: Respiratory: Denies dyspnea Gastrointestinal: Gastrointestinal: Denies abdominal pain Musculoskeletal: Musculoskeletal: Reports back pain, Reports arthralgias, Denies joint swelling, Denies muscle weakness, Denies radiating pain into limb and Denies tingling Neurologic: Denies tingling Endocrine: Endocrine: Denies fatigue PMFSH Past Medical History Attestation statement: The following information was validated with the patient. Medical History Bladder mass Metformin adverse reaction Urinary incontinence, mixed Oropharyngeal dysphagia COVID-19 vaccination refused Refused influenza vaccine Diabetes mellitus with hyperglycemia, without long-term current use of insulin Anxiety as acute reaction to gross stress Mild intermittent asthma in adult without complication OAB (overactive bladder) Diabetes mellitus with microalbuminuria, without long-term current use of insulin Osteoarthritis, knee History of depression Osteopenia after menopause Overweight Varicose veins of right lower extremity History of ST elevation myocardial infarction (STEMI) Coronary artery disease involving iliamna coronary artery Hypertension Refused pneumococcal vaccination Dyslipidemia Surgical History History of section Hx of myomectomy S/P left rotator cuff repair History of heart artery stent Family History Family History Father No problems noted. Mother No problems noted. 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 Current occupational exposures/hazards: No Cognitive needs: No Hearing needs: No Vision needs: Yes Physical Exam ED Vital Signs: Vital Signs - 24 hr 08/12/25 21:01 08/12/25 22:00 Temperature 97.6 F 98.4 F Pulse Rate 89 82 Respiratory Rate 20 14 Blood Pressure 114/67 129/64 Pulse Oximetry 96 99 Oxygen Delivery Method Room Air Room Air BMI result Body Mass Index 25.2 Const Other: Alert Orientation/consciousness: patient oriented x3 Resp Effort & Inspection: normal respiratory effort Cardio Other: normal peripheral perfusion Skin Other: warm dry no rash Neuro Other: antalgic gait walks with a cane General: patient oriented x3, no focal motor deficits and CN's II-XI intact bilaterally Psych Other: cooperative Course Reevaluation(s) Reevaluation #1: Patient states the medication did not help her, oxycodone has not helped her, I was going to place her on a steroid taper, she declines, she states she was told she should use it. Sending her with ketorolac. Medications Administered Discontinued Medications Generic Name Dose Route Start Last Admin Trade Name Freq PRN Reason Stop Dose Admin Ketorolac Tromethamine 15 mg 08/12/25 21:34 08/12/25 22:10 Ketorolac Tromethamine 15 Mg/Ml Vial IM 08/12/25 21:35 15 mg ONCE ONE Administration Methocarbamol 1,500 mg 08/12/25 21:34 08/12/25 22:10 Methocarbamol 750 Mg Tablet PO 08/12/25 21:35 1,500 mg ONCE ONE Administration Prednisone 10 mg 08/12/25 23:36 08/13/25 00:19 Prednisone 10 Mg Tablet PO 08/12/25 23:37 Not Given ONCE ONE Medical Decision Making Medical Decision Making MDM Narrative: 70-year-old female with a history of diabetes, hypertension, hyperlipidemia, paroxysmal AFib on apixaban, known coronary artery disease, known arthritis and osteopenia, asthma, who presents with right low back pain and hip pain for a month. Patient states she fell a month ago, then developed discomfort in the right back and hip. Patient has been assessed multiple x4 her discomfort following the fall, she has had negative imaging. She has been using oxycodone without relief of symptoms. Patient has pending appointment with [facility] this coming week. Denies radiation of pain from the back, weakness of lower extremities, paresthesia, urinary retention or bowel incontinence. Patient denies new trauma. problem: Age, known osteopenia and arthritis, History: Per patient I have considered the following differential diagnoses: Compression fracture, musculoskeletal strain, lumbar radiculopathy, cauda equina, fracture, dislocation, worsening arthritis Plan: Repeating imaging of lumbar spine and hip pelvis, she has a arthritis this is known,.. She is not having radicular symptoms she has no red flag signs symptoms concerning for cord compression. Giving Toradol and methocarbamol. \ I have independently reviewed the following tests: X-ray lumbar spine: Findings: Normal vertebral body alignment. Mild osteopenia. Diffuse idiopathic skeletal hyperostosis No fracture or dislocation. L5-S1: Moderate to severe DJD. IMPRESSION: 1. Moderate to severe degenerative joint disease at L5-S1. 2. Diffuse idiopathic skeletal hyperostosis. 3. Mild osteopenia. 4. No acute osseous abnormality. X-ray hip pelvis:Findings: Mild osteopenia. No significant arthritic change. The soft tissues are unremarkable. Two separate surgical clips projected of the right inguinal region. IMPRESSION: 1. No acute osseous injury. Discharge Plan Discharge Clinical Impression: Arthritis of lumbar spine, Osteoarthritis Patient Disposition: Home, Self-Care Instructions: Osteoarthritis (ED) Additional Instructions: you were found to have arthritis in the back and in the hip pelvis. See home care instructions. This is a chronic disease process. Use the ketorolac as directed, take it with food. This is an anti-inflammatory. Do not take it concurrently with the Celebrex. Keep your pending appointment with the orthopedist. Prescriptions: New ketorolac 10 mg tablet 10 mg PO Q6H PRN (Reason: pain) Qty: 20 0RF Rx Instructions: maximum total duration of 5 days from all oral, intranasal, or parenteral formulations. The patient received an intramuscular dose of Toradol here in the emergency room. No Action FreeStyle Lite Strips Strip 1 strip miscellaneous BID Qty: 100 0RF fluticasone propionate 110 mcg/actuation HFA aerosol inhaler 1 puff inhalation Q12H Qty: 12 1RF Rx Instructions: rinse and gargle mouth after use lisinopril 5 mg tablet 5 mg PO DAILY Qty: 90 0RF docusate sodium 100 mg capsule 100 mg PO DAILY Qty: 90 1RF ezetimibe 10 mg tablet 10 mg PO DAILY Qty: 90 1RF Januvia 100 mg tablet 100 mg PO DAILY Qty: 30 2RF mirabegron [Myrbetriq] 25 mg tablet extended release 24 hr 25 mg PO DAILY Qty: 30 1RF hydroxyzine HCl 10 mg tablet 10 mg PO .qd PRN (Reason: hives) Qty: 30 1RF estradiol 0.01 % (0.1 mg/gram) cream See Rx Instructions .Route 3XW 90 Days Qty: 42.5 1RF Rx Instructions: Apply a pea-sized amount to urethra daily x1 month and then 3 times per week thereafter acetaminophen [Tylenol Extra Strength] 500 mg tablet 500 mg PO Q6H PRN (Reason: fever or pain) Qty: 14 0RF albuterol sulfate 90 mcg/actuation HFA aerosol inhaler 2 puff inhalation Q6H PRN (Reason: shortness of breath or wheezing) Qty: 8.5 0RF nitroglycerin 0.4 mg tablet, sublingual 0 mg sublingual (DME) lancets [FreeStyle Lancets] 28 gauge misc See Rx Instructions .ROUTE .MEDSUPPLY Qty: 100 Rx Instructions: As directed rosuvastatin 5 mg tablet 5 mg PO DAILY Qty: 30 5RF metoprolol succinate 200 mg tablet extended release 24 hr 200 mg PO DAILY multivitamin Tablet 1 tab PO DAILY cyclobenzaprine 5 mg tablet 5 mg PO BID PRN (Reason: pain (scale score 7-10)) Qty: 30 0RF lorazepam [Ativan] 1 mg tablet 1 mg PO ONCE Qty: 1 0RF Rx Instructions: Take 30 minutes prior to arrival to procedure celecoxib [Celebrex] 100 mg capsule 100 mg PO DAILY PRN Farxiga 10 mg tablet 10 mg PO QAM Qty: 90 1RF Eliquis 5 mg tablet 5 mg PO BID Qty: 180 0RF dapagliflozin propanediol [Farxiga] 10 mg tablet 10 mg PO DAILY Qty: 90 0RF vibegron 75 mg tablet 75 mg PO DAILY 30 Days Qty: 30 1RF artificial tear([id number]) 0.1-0.3-0.2 % drops ophthalmic (eye) Print Language: Anguillan
--- NOTE | 2025-08-13 00:19 | PC.NURSE ---
was asked by primary rn Johny to medicate patient with ordered prednisone. patient refused stating she has a heart condition and was told not to take prednisone. Selene PAK made aware and ok with patient not taking this medication. Johny SAM aware.
[2025-08-13 01:04] VITALS: BP 129/64; PULSE 82; RESP 14; TEMP 36.9; O2SAT 99
== END 2025-08-13 01:07 | disposition home or self-care (01) ==
PROVIDERS: Emergency Provider Emergency Medicine; PCP Internal Medicine
DX: M13.88 Other specified arthritis, other site (principal); I10 Essential (primary) hypertension; E11.9 Type 2 diabetes mellitus without complications; I48.0 Paroxysmal atrial fibrillation; Z79.01 Long term (current) use of anticoagulants; Z91.81 History of falling
CPT/HCPCS: 72100; 73502; 96372; 99284; J1885

== ENCOUNTER → 2025-08-12 21:34 | Outpatient (BNV) | payer OTHER, SELFPAY | PROVIDERS: Emergency Provider Emergency Medicine; PCP Internal Medicine; Visit Provider Radiology Diagnostic Radiology | DX: R07.89 Other chest pain (principal); M51.370 Other intervertebral disc degeneration, lumbosacral region with discogenic back pain only | CPT/HCPCS: 72100; 73502 ==

== ENCOUNTER 2025-10-11 13:32 | Outpatient (REF) | payer OTHER, SELFPAY ==
--- OUTSIDE RECORDS SUMMARY | 2025-10-11 20:20 | XMS_ITS | Data Portability ---
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 I have reviewed and agree with the Assessment and Plan as documented by the Aircraft Loadmaster Superintendent. We discussed the diagnostic uncertainty of home [...] to call 911- verbalized understanding of instruction [email or web address] Not available 03/08/2024 16:23:50 Plan of Treatment Reminders Order Date Submit Date Provider Last Modified By Organization Details Last Modified Time Details Appointments None recorded. Lab culture, urine 2023 024 [email or web address] [facility] (Centralized Electronic Ordering - All Locations), Patient Can Go To The Location Of Their Choice, [address] 4 11:16:43 urinalysis , dipstick [email or web address] [facility], [address] [place] [address], [address] 4 15:54:29 glucose, fingerstic k, blood 2023 024 [email or web address], [address] 4 15:55:15 BMP, serum or plasma 2023 024 [email or web address] [address], [address] 17:20:49 Referral None recorded. Procedures None recorded. Surgeries None recorded. Imaging None recorded. Medication Orders Pyridium 100 mg tablet 2023 024 [id number], [address] [place], [place], [phone], 16:23:58 Patient TargetsNo targets recorded. Patient InstructionsNo instructions recorded. Reason for Referral None Reported. Results Created Date Observation Date Name Description Value Unit Range Abnormal Flag Note LastModifiedBy Organization Detail LastModifiedTime 03/08/20 24 03/08/2024 BMP, serum or plasm a GLU 293 Not Available Main - Ins [address], [address] [place] [address] 03/08/2024 16:23:59 03/08/2003/08/2024 gluco se, finge rstic k, blood Blood Glucose: mg/dl 313 Not Available Main - [address], [address] [place] [address] 03/08/2024 15:54:50 03/08/20 24 03/08/2024 urina lysis , dipst ick Leukocytes neg Not Available Main - [address], [address] 03/08/2024 15:52:25 03/08/20 24 03/08/2024 urina lysis , dipst ick Nitrite negati ve Not Available Main - Inst [address], [address] 03/08/2024 15:52:25 03/08/20 24 03/08/2024 urina lysis , dipst ick pH 5 Not Available Main - Ins [address], [address] 03/08/2024 15:52:25 03/08/20 24 03/08/2024 urina lysis , dipst ick Blood neg Not Available Main - Ins [address], [address] 03/08/2024 15:52:25 03/08/20 24 03/08/2024 urina lysis , dipst ick Specific [place] 1.005 Not Available [facility] - [address], [address] 03/08/2024 15:52:25 03/08/20 24 03/08/2024 urina lysis , dipst ick Ketone neg Not Available Main - Ins [address], [address] 03/08/2024 15:52:25 03/08/20 24 03/08/2024 urina lysis , dipst ick Glucose 3+ Not Available Main - [facility] [address], [address] 03/08/2024 15:52:25 03/08/20 24 03/08/2024 urina lysis , dipst ick Appearance clear Not Available [facility] - [address], [address] 03/08/2024 15:52:25 03/08/20 24 03/08/2024 urina lysis , dipst ick Color yellow Not Available Main - Ins [address], [address] 03/08/2024 15:52:25 Result Notes None recorded. Medical Equipment None Reported. Allergies Allergen ID Allergen Name Allergen Category Reaction Reaction Severity Criticality Documentation Date Start Date Code Code System Note Provider Name and Address Organization Details Recorded Time 5042 Oxycontin medicatio n Not available Not available Not available 03/08/2024 93181 6 RxNorm Not Available [facility] - production 13:38:50 5043 shrimp allergeni c extract food Not available Not available Not available 03/08/2024 48399 2 RxNorm Mercy Castillo MD [address] [place] [address],[address], [place], [address], [facility] 15:52:46 9967 metformin medicatio n Not available Not available Not available 09/02/2024 6809 RxNorm Not Available [facility] - production 13:38:50 Medications Name Sig Start [...] Recorded Body weight Body temperature Oxygen saturation Respiratory rate Body height Heart rate Systolic And Diastolic Provider Name and Address Organization Details Last Updated DateTime 4 14633.1 44 g 98.2 [degF] 96 % 18 /min 149.86 cm 72 /min 146/81 mm[Hg] Not Available [facility] - production 4 15:50:30 Date Recorded Oxygen saturation Body temperature Heart rate Respiratory rate Systolic And Diastolic Provider Name and Address Organization Details Last Updated DateTime 4 98 % 98.3 [degF] 106 /min 20 /min 180/92 mm[Hg] Not Available [facility] - production 4 15:59:56 Social History None recorded. Functional Status None recorded. Mental Status None recorded. Family History Nothing Reported. Medical History No medical history recorded. Gynecological HistoryNo gynecological history recorded. Obstetrics History GPAL:G 0 P 0 0 0 0 Past Encounters Encounter ID Performer Location Encounter Start Date Encounter Closed Date Diagnosis/Indication Diagnosis SNOMED-CT Code Diagnosis ICD10 Code Diagnosis IMO Codes Diagnosis Note [id number] Mercy Castillo MD [facility] - [facility] [address] [place] [address] 03/08/2024 15:50:25 03/09/2024 11:54:56 Urinary symptoms 761583585 R39.9 No evidence of UTI based on dip she has glycosuria which could be causing the urgency and frequency- bmp ordered- nl renal function/ stable H & H.Will send urine culture and will call if UC positive for infection. Pat request Rx to go to [address] in [place]- made aware of Good RX card to defray cost - also have otc version- advised will turn urine bright orangey red- can stain underwear/ advised wearing pad for 3 -4 days PC team: Had bagels and grapes today- needs dietary consult re lower glycemic index foods- medic attempted to explain [id number] LYUDMILA DAMIAN MD [facility] - [facility] [address] [place] [address] 09/02/2024 15:51:56 09/02/2024 21:41:56 Pain of right hip joint [id number] 85810 M25.551 Evaluation in the field was performed by my dressmaker garment fitter colleague, as noted above, I provided real-time [...] and treatment. -An expect was called at [facility] Primary care, consider__ _ Dispositio n:We discussed the situation and I recommende d referral to the emergency department . An expect was called at [facility] Health Concerns Section Related Observation LastModified by Organization Roland ls LastModified Time None Recorded Concern Status LastModified by Organization Details LastModified Time None Recorded Advance Directives Directive None Recorded Payers Insurance Date Sequence Insurance Name Policy Number Policy Meza Covered Member ID Meza Member ID Guarantor Name 09/02/2024 1 [facility] - DOS ON OR AFTER 2023 - DUAL ELIGIBLE - [employer] OPTIONS AND ONE CARE (MEDICARE REPLACEMENT/ADV ANTAGE - HMO) Meena Hidalgo [id number] Meena Hidalgo Notes Date Note Type Note Provider Name and Address Organization Details Recorded Time 03/08/2024 text/html ROS as noted in the HPI CRC Nurse Triage Notes (Kaden Herzog): Reason [...] UTI/Pyelonephritis , Abdominal Pain Allergies: Unknown Comments: Microstrategy Developer verified the member's name//address and phone [...] - S/S for 3 days. Wellness check. Aircraft Loadmaster Superintendent POC Test Results from [facility] Urine [...] .................. .................. .................. .................. .................. .................. ............... Aircraft Loadmaster Superintendent Note From [facility]: Sent to a [...] she has history of diabetes, CHF, and ID. Pt states she takes Farxiga, Januvia, and Glipizide. Pt also takes Eliquis. Pt reports allergy to Oxycontin, causing hallucinations. BP:146/81, P:72, RR:18, SpO2:96% RA, T:98.2, B; Head: unremarkable; Lung sounds: clear bilaterally; Abdomen: soft, non-tender, distention; Back: no CVA tenderness; Extremities: no peripheral edema; Skin: pink, warm, dry; Urine sample obtained: yellow, clear, concentrated; Urine dip results: uploaded to [facility]. [facility] consulted and orders POC bloodwork and urine culture to be sent to [facility]. Venous blood draw performed; Istat Chem8+ results: uploaded to [facility]. [facility] sends script to pt's pharmacy for pyridium. [...] .................. ............... Disposition: Fulfilled Mercy Castillo MD [address] [place] [address],[address] [facility], [place], [address], [facility] 03/08/2024 17:20:55 09/02/2024 text/html ROS as noted in the HPI HPI: Mbr called in to the CRU, [...] .................. .................. .................. .................. .................. .................. ............... Aircraft Loadmaster Superintendent Note From Arjun Hubbard: Dispatched to the [...] afebrile, mucous membranes pink and moist, -edema, [facility] consulted. 911 called on behalf of the Pt, [employer] transported Pt to [facility]. ALL times are approx. .................. .................. .................. .................. .................. .................. .................. ............... [facility] Consulted: Lyudmila Damian .................. .................. .................. .................. .................. .................. .................. ............... Disposition: Fulfilled LYUDMILA DAMIAN MD [address] [facility],[address], [place], [address], [facility] 09/02/2024 19:04:26 OBGyn Episode No OBEpisode recorded.
== END 2025-10-11 13:33 | disposition home or self-care (01) ==
LOC: HO.LAB 13:32
PROVIDERS: Visit Provider Urology
DX: C67.9 Malignant neoplasm of bladder, unspecified (principal); N39.0 Urinary tract infection, site not specified; N13.8 Other obstructive and reflux uropathy; R31.29 Other microscopic hematuria; N32.81 Overactive bladder
CPT/HCPCS: 88112

== ENCOUNTER 2025-10-11 13:32 | Outpatient (AMB) | payer OTHER, SELFPAY ==
--- OUTSIDE RECORDS SUMMARY | 2024-09-07 06:30 | XMS_ITS ---
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 Role Phone Hernan Wasserman Primary Care Provider Unavailable Kathrine Cheema Unavailable [phone] Allergies Allergen (clinical drug ingredient) Drug/Non Drug Allergy documented on EMR Reaction Allergy Type Onset Date Status oxycodone OxyContin hallucination Drug Allergy Act leif shrimp allergenic extract Shrimp (Diagnostic) Unknown Drug Allergy Active Shellfish (FN) Shellfish-derived Products Unknown Drug Allergy Active Medications Medication SIG (Take, Route, Frequency, Duration) Notes Start Date End Date Status Methylprednisolone N ot-Taking Acetaminophen 325 MG 1 tablet as needed Orally every 4 hrs Not-Taking Cyclobenzaprine HCl 10 MG 1 tablet as ne eded Orally Three times a day Not-Taking Brilinta 90 MG 1 tablet Orally Twic e a day; Duration: 30 day(s) Not-Taking Vitamin D3 2000 UNIT 1 capsule Orally On ce a day; Duration: 30 day(s) Not-Taking Lisinopril Not-Takin g Ammonium Lactate 12 % 1 application to affected area Externally to feet Twice a day; Duration: 30 days Not-Taking Extra Depth Orthopedic Shoes (1 Pair) with Customized Heat Molded Multidensity Innersoles (3 Pair) as directed Dx: NIDDM/Polyneuropathy (E11.42), Hammertoe Foot Deformity (M20.41,M20.42), Preulcerative Skin Lesion(s) (L85.1 01/15/2022 Not-Taking Extra Depth Orthopedic Shoes (1 Pair) with Customized Heat Molded Multidensity Innersoles (3 Pair) as directed Dx: NIDDM/Polyneuropathy (E11.42), Hammertoe Foot Deformity (M20.41,M20.42), Preulcerative Skin Lesion(s) (L85.1 Not-Taking Gabapentin Not-Takin g Feldene 20 MG 1 capsule with food Orally Once a day as needed. Do NOt take any additional NSAIDs such as Motrin or Ibuprofen with this medication; Duration: 30 day(s) 01/07/2024 Active hydrOXYzine HCl 10 MG Oral; Duration: 30 Active Repaglinide 2 MG TAKE ONE TABLET BY MOUTH THREE TIMES DAILY 30 MINUTES BEFORE A MEAL OR SNACK Oral; Duration: 30 Active Flovent HFA 110 MCG/ACT Inhalation; Dura tion: 60 Active Januvia 100 MG Oral; Duration: 30 Active Ammonium Lactate 12 % 1 application to affected area Externally to feet Twice a day; Duration: 30 days Active Arthritis Pain PRN Activ e Extra Depth Orthopedic Shoes (1 Pair) with Customized Heat Molded Multidensity Innersoles (3 Pair) as directed Dx: NIDDM/Polyneuropathy (E11.42), Hammertoe Foot Deformity (M20.41,M20.42), Preulcerative Skin Lesion(s) (L85.1 07/23/2019 Active Eliquis 5 MG as directed Orally Active Extra Depth Orthopedic Shoes (1 Pair) with Customized Heat Molded Multidensity Innersoles (3 Pair) as directed Dx: NIDDM/Polyneuropathy (E11.42), Hammertoe Foot Deformity (M20.41,M20.42), Preulcerative Skin Lesion(s) (L85.1 04/23/2023 Active Farxiga 10 MG 1 tablet Orally Once a day; Duration: 30 day(s) Active Metoprolol Succinate ER 50 MG 1 tablet Orally Once a day; Duration: 30 day(s) Active Rosuvastatin Calcium 40 MG 1 tablet Oral ly Once a day; Duration: 30 day(s) Active CeleBREX Active Encounters Encounter Location Date Provider Diagnosis [facility] [place] [address] [place] [address] 09/07/2024 Kathrine Cheema Plan Of Treatment Next Appt Details Provider Name:Kathrine armando, 12/27/2025 01:00:00 PM, [address] [place], [address], Progress Notes * Judie TOLLIVERB:[birth year] (70 yo F)Acc No.[id number]:09/07/2024 Progress Note Patient: Meena HESTER Provider: Gretchen Cheema DPM :1955 A ge:69 Y S ex:Female Date:09/07/2024 Address:[address] [place], [place] [id number] Pcp:Hernan wu Subjective: * Chief Complaints: * * Medical History: T ype 2 diabetes, Depression/anxiety, Hyperlipidemia, Psychophysiological insomnia, Osteopenia, Adnexal mass, HTN, Asthma, [place] 02/24/19, Fatty liver, Uterine fibroid, Arthritis, Back,Hip,and Knee pain, CAD (Cholesterol), High blood pressure, Sciatica, Stomach ulcer, Covid-. * Medications: T aking CeleBREX , Taking Rosuvastatin Calcium 40 MG Tablet 1 tablet Orally Once a day , Taking Metoprolol Succinate ER 50 MG Tablet Extended Release 24 Hour 1 tablet Orally Once a day , Taking Farxiga 10 MG Tablet 1 tablet Orally Once a day , Taking Eliquis 5 MG Tablet as directed Orally , Taking Extra Depth Orthopedic Shoes (1 Pair) with Customized Heat Molded Multidensity Innersoles (3 Pair) as directed Dx: NIDDM/Polyneuropathy (E11.42), Hammertoe Foot Deformity (M20.41,M20.42), Preulcerative Skin Lesion(s) (L85.1 , Taking Arthritis Pain , Notes to Pharmacist: PRN, Taking Ammonium Lactate 12 % Cream 1 application to affected area Externally to feet Twice a day , Taking Extra Depth Orthopedic Shoes (1 Pair) with Customized Heat Molded Multidensity Innersoles (3 Pair) as directed Dx: NIDDM/Polyneuropathy (E11.42), Hammertoe Foot Deformity (M20.41,M20.42), Preulcerative Skin Lesion(s) (L85.1 , Taking Januvia 100 MG Tablet Oral , Taking Flovent HFA 110 MCG/ACT Aerosol Inhalation , Taking Repaglinide 2 MG Tablet TAKE ONE TABLET BY MOUTH THREE TIMES DAILY 30 MINUTES BEFORE A MEAL OR SNACK Oral , Taking hydrOXYzine HCl 10 MG Tablet Oral , Taking Feldene 20 MG Capsule 1 capsule with food Orally Once a day as needed. Do NOt take any additional NSAIDs such as Motrin or Ibuprofen with this medication , Not-Taking/PRN Extra Depth Orthopedic Shoes (1 Pair) with Customized Heat Molded Multidensity Innersoles (3 Pair) as directed Dx: NIDDM/Polyneuropathy (E11.42), Hammertoe Foot Deformity (M20.41,M20.42), Preulcerative Skin Lesion(s) (L85.1 , Not-Taking/PRN Extra Depth Orthopedic Shoes (1 Pair) with Customized Heat Molded Multidensity Innersoles (3 Pair) as directed Dx: NIDDM/Polyneuropathy (E11.42), Hammertoe Foot Deformity (M20.41,M20.42), Preulcerative Skin Lesion(s) (L85.1 , Not-Taking/PRN Ammonium Lactate 12 % Cream 1 application to affected area Externally to feet Twice a day , Not-Taking/PRN Lisinopril , Not-Taking/PRN Gabapentin , Not-Taking/PRN Vitamin D3 2000 UNIT Capsule 1 capsule Orally Once a day , Not-Taking/PRN Brilinta 90 MG Tablet 1 tablet Orally Twice a day , Not- Taking/PRN Cyclobenzaprine HCl 10 MG Tablet 1 tablet as needed Orally Three times a day , Not-Taking/PRN Acetaminophen 325 MG Tablet 1 tablet as needed Orally every 4 hrs , Not-Taking/PRN Methylprednisolone * Allergies: O xyContin: hallucination, Shrimp (Diagnostic), Shellfish-derived Products. Objective: * Vitals: Assessment: Plan: * Treatment: * Images: * The named appointment provid er may or may not be the originator of this progress note, and it is not deemed complete until electronically signed by the appointment provider. Sign off status: Pending * Provider: Gretchen Cheema DPM Date: 11/07/2023 Generated for Osmar brito/Raheel/Bridgett on: 12/12/2024 07:05 PM EST
--- OUTSIDE RECORDS SUMMARY | 2024-11-19 07:30 | XMS_ITS ---
Author Organization [facility] Address [address] [place] [address] Care Team Providers Care Process Coach Name Role Phone Hernan Wasserman Primary Care Provider Unavailable Kathrine Cheema Unavailable [phone] REASON FOR VISIT r/s for sooner apt Encounters Encounter Location Date Provider Diagnosis [facility] [address] [place] [address] 11/19/2024 Kathrine Cheema Plan Of Treatment Next Appt Details Provider Name:Kathrine armando, 12/27/2025 01:00:00 PM, [address] [place], [address], Progress Notes * Judie TOLLIVERB:[birth year] (70 yo F)Acc No.[id number]:11/19/2024 Progress Note Patient: Lucien MCCONNELLTabby Meena Provider: Gretchen Cheema DPM :1955 A ge:69 Y S ex:Female Date:11/19/2024 Address:[address] [place] [address], [address], [id number] Pcp:Hernan wu Subjective: * Chief Complaints: * 1 . R/s for sooner apt. * Medical History: Objective: * Vitals: Assessment: Plan: * Treatment: * Images: * The named appointment provid er may or may not be the originator of this progress note, and it is not deemed complete until electronically signed by the appointment provider. Sign off status: Pending * Provider: Gretchen Cheema DPM Date: 0 11/19/2024 Generated for Osmar Carr/Bridgett on: 12/12/2024 07:07 PM EST
--- OUTSIDE RECORDS SUMMARY | 2025-09-13 10:30 | XMS_ITS ---
Author Organization [facility] Address [address] [place] [address] Care Team Providers Care Bail Bonding Agent Name Role Phone Hernan Wasserman Primary Care Provider Unavailable Kathrine Cheema Unavailable [phone] Allergies Allergen (clinical drug ingredient) Drug/Non Drug Allergy documented on EMR Reaction Allergy Type Onset Date Status oxycodone OxyContin hallucination Drug Allergy Act leif shrimp allergenic extract Shrimp (Diagnostic) Unknown Drug Allergy Active Shellfish (FN) Shellfish-derived Products Unknown Drug Allergy Active vitamin D Vitamin D hallucinations Drug Allergy Ac tive Medications Medication SIG (Take, Route, Frequency, Duration) Notes Start Date End Date Status Flovent HFA 110 MCG/ACT Inhalation; Dura tion: 60 Not-Taking CeleBREX Not-Taking Extra Depth Orthopedic Shoes (1 Pair) [...] a day; Duration: 30 days Not-Taking Lisinopril 40 MG Oral; Duration: 90 [...] Deformity (M20.41,M20.42), Preulcerative Skin Lesion(s) (L85.1 Active Repaglinide 2 MG TAKE ONE TABLET BY MOUTH THREE TIMES DAILY 30 MINUTES BEFORE A MEAL OR SNACK Oral; Duration: 30 Not-Taking Extra Depth Orthopedic Shoes (1 Pair) with Customized Heat Molded Multidensity Innersoles (3 Pair) as directed Dx: NIDDM/Polyneuropathy (E11.42), Hammertoe Foot Deformity (M20.41,M20.42), Preulcerative Skin Lesion(s) (L85.1 07/23/2019 Active Ammonium Lactate 12 % 1 application to affected area Externally to feet Twice a day; Duration: 30 days Active Arthritis Pain PRN Activ e hydrOXYzine HCl 10 MG Oral; Duration: 30 Active Extra Depth Orthopedic Shoes (1 Pair) with Customized Heat Molded Multidensity Innersoles (3 Pair) as directed Dx: NIDDM/Polyneuropathy (E11.42), Hammertoe Foot Deformity (M20.41,M20.42), Preulcerative Skin Lesion(s) (L85.1 04/23/2023 Active Rosuvastatin Calcium 40 MG 1 tablet Oral ly Once a day; Duration: 30 day(s) Active Metoprolol Succinate Active Farxiga 10 MG 1 tablet Orally Once a day; Duration: 30 day(s) Active Eliquis 5 MG as directed Orally Active Methylprednisolone N ot-Taking Vitamin D3 2000 UNIT 1 capsule Orally On ce a day; Duration: 30 day(s) Not-Taking Gabapentin Not-Takin g Brilinta 90 MG 1 tablet Orally Twic e a day; Duration: 30 day(s) Not-Taking Acetaminophen 325 MG 1 tablet as needed Orally every 4 hrs Not-Taking Cyclobenzaprine HCl 10 MG 1 tablet as ne eded Orally Three times a day Not-Taking Lisinopril Not-Cleo lucas Encounters Encounter Location Date Provider Diagnosis [facility] [address] [address] 09/13/2025 Kathrine Cheema Plan Of Treatment Next Appt Details Provider Name:Kathrine armando, 12/27/2025 01:00:00 PM, [address] [address], [id number], Progress Notes * Judie TOLLIVERB:[birth year] (70 yo F)Acc No.[id number]:09/13/2025 Progress Note Patient: Lucien FALLON Meena Provider: Gretchen Cheema DPM :1955 A ge:70 Y S ex:Female Date:09/13/2025 Address:[address] [place] [address], [address] Pcp:Hernan wu Subjective: * Chief Complaints: * * Medical History: T ype 2 diabetes, Depression/anxiety, Hyperlipidemia, Psychophysiological insomnia, Osteopenia, Adnexal mass, HTN, Asthma, [place] 02/24/19, Fatty liver, Uterine fibroid, Arthritis, Back,Hip,and Knee pain, CAD (Cholesterol), High blood pressure, Sciatica, Stomach ulcer, Covid-19, Cancer. * Medications: T aking Metoprolol Succinate , Taking Rosuvastatin Calcium 40 MG Tablet [...] (M20.41,M20.42), Preulcerative Skin Lesion(s) (L85.1 , Taking hydrOXYzine HCl 10 MG Tablet Oral , Taking Feldene 20 MG Capsule 1 capsule with food Orally Once a day as needed. Do NOt take any additional NSAIDs such as Motrin or Ibuprofen with this medication , Taking Lisinopril 40 MG Tablet Oral , Taking Extra Depth Orthopedic Shoes (1 Pair) with Customized Heat Molded Multidensity Innersoles (3 Pair) as directed Dx: NIDDM/Polyneuropathy (E11.42), Hammertoe Foot Deformity (M20.41,M20.42), Preulcerative Skin Lesion(s) (L85.1 , Not-Taking/PRN Januvia 100 MG Tablet Oral , Not-Taking/PRN Repaglinide 2 MG Tablet TAKE ONE TABLET BY MOUTH THREE TIMES DAILY 30 MINUTES BEFORE A MEAL OR SNACK Oral , Not- Taking/PRN CeleBREX , Not-Taking/PRN Flovent HFA 110 MCG/ACT Aerosol Inhalation , Not- Taking/PRN Extra Depth Orthopedic Shoes (1 Pair) with [...] 1 tablet Orally Twice a day , Not-Taking/PRN Cyclobenzaprine HCl 10 MG Tablet 1 tablet as needed Orally Three times a day , Not-Taking/PRN Acetaminophen 325 MG Tablet 1 tablet as needed Orally every 4 hrs , Not-Taking/PRN Methylprednisolone * Allergies: O xyContin: hallucination, Shrimp (Diagnostic), Shellfish-derived Products, Vitamin D: hallucinations - Side Effects. Objective: * Vitals: Assessment: Plan: * Treatment: * Images: * The named appointment provid er may or may not be the originator of this progress note, and it is not deemed complete until electronically signed by the appointment provider. Sign off status: Pending * Provider: Gretchen Cheema DPM Date: 11/13/2024 Generated for Osmar brito/Raheel/Bridgett on: 12/12/2024 07:04 PM EST
--- NOTE | 2025-10-11 14:01 | MHC.OFFVIS ---
Intake Visit Reasons: 3m/Cysto SET UA Intake Note: Patient is present for Cystoscopy for [facility] Medication:ESTRADIOL,,MIRABEGRON,GEMTESA Antibiotic Allergy:ATORVASTATIN,BACTRIM Blood Thinner:APIXABAN LOT#[id number] EXP 04/11/2028 Project Facilitator Required: No Accompanied by: Self / Same As Patient Allergies atorvastatin (From LIPITOR) Adverse Reaction (Intermediate, Verified 10/11/25 14:02) STOMACH ACHE oxycodone (From OXYCONTIN) Adverse Reaction (Intermediate, Verified 10/11/25 14:02) SENSORY HALLUCINATIONS sulfamethoxazole (From Bactrim) Adverse Reaction (Intermediate, Verified 10/11/25 14:02) chills vitamin d Adverse Reaction (Intermediate, Uncoded 05/06/25 14:57) Hallucinations HPI Comments Details: Meena is a very pleasant patient. She is a patient of Dr. Rajput. She is seen for the following urologic conditions - bladder cancer - overactive bladder Treated with Gemtesa for overactive bladder Continue good response Cystoscopy today normal Due to high-grade superficial disease UA recommendation would be adjuvant therapy at 12 and 18 month Given how good her bladder looked at cystoscopy will use gemcitabine/docetaxel Bladder cancer - High-Grade, Superficial, Noninvasive Cystoscopy - 10/27 TURBT 03/27 Procedure: Transurethral resection Tumor site: Left ureteric orifice Histologic type: Papillary urothelial carcinoma Histologic grade: High-grade Muscularis propria: Not identified Extent of invasion: Non-invasive Lymphovascular invasion: Not identified CT urogram performed - 1.7 cm polypoid mass on left bladder wall Adjuvant therapy - 6 week induction mitomycin-C and cytarabine [facility] Medical History Bladder mass Metformin adverse reaction Urinary incontinence, mixed Oropharyngeal dysphagia COVID-19 vaccination refused Refused influenza vaccine Diabetes mellitus with hyperglycemia, without long-term current use of insulin Anxiety as acute reaction to gross stress Mild intermittent asthma in adult without complication OAB (overactive bladder) Diabetes mellitus with microalbuminuria, without long-term current use of insulin Osteoarthritis, knee History of depression Osteopenia after menopause Overweight Varicose veins of right lower extremity History of ST elevation myocardial infarction (STEMI) Coronary artery disease involving qagan tayagungin coronary artery Hypertension Refused pneumococcal vaccination Dyslipidemia Surgical History History of section Hx of myomectomy S/P left rotator cuff repair History of heart artery stent Family History Father No problems noted. Mother No problems noted. 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 Current occupational exposures/hazards: No Cognitive needs: No Hearing needs: No Vision needs: Yes Female Reproductive History Menstrual Age of Menarche: 12 Review of Systems Const Denies chills and Denies fever(s) Card Reports no additional complaints and Denies syncope Resp Denies cough GI Denies abdominal pain and Denies heartburn Reports as per HPI and Denies change in libido Neuro Denies syncope Psych Denies change in libido Endo Denies change in libido Physical Exam Const General: cooperative, healthy appearing, comfortable and no acute distress Orientation/consciousness: patient oriented x3 HEENT Face and sinus: Yes normal facial exam Mouth: moist mucous membranes Neck Neck: Yes normal visual inspection, Yes full ROM and Yes trachea midline Chest Chest palpation & inspection: normal inspection of the chest Resp Effort & Inspection: normal respiratory effort, able to speak in complete sentences and no respiratory distress GI Inspection: Yes normal to inspection Back/Spine/Pelvis Cervical Spine: normal cervical lordosis Thoracic/Lumbar Spine: thoracic and lumbar spine normal to inspection Skin General skin exam: no rashes or lesions noted Neuro General: patient oriented x3, gait normal, tone normal and moves all extremities Extrem General: Yes normal to inspection and Yes capillary refill normal Office Procedures Cystoscopy Consent Discussed risk and benefit or proposed procedure with the patient. Information consent for procedure given to the patient. Discussed technical aspects, risks, benefits and alternatives in full. Addressed all of the patient's questions and concerns regarding the procedure. The patient demonstrated knowledge and understanding. They wish to proceed with this procedure. Preparation The patient was prepped in the usual manner. A consulting hr professional was present and in the room. Genitalia was prepped with betadine solution in a sterile manner. Lidocaine Jelly 2% was placed into the urethra and 16Fr flexible Olympus cystoscope was inserted into the meatus after adequate lubrication. Procedure Consent confirmed Genitalia prepped and draped using topical antiseptic and lidocaine jelly Cystoscopy performed using a sterile disposable Urovue digital 16 [place] cystoscope Meatus normal Urethra normal Bladder examination with retroflexion of cystoscope Bladder Orifices normal shape and position Trigone normal Bladder Capacity Normal Trabeculations Grade 0 Cellule Formation None Diverticulum Formation None Mucosal Erythema None Bladder Tumor None [id number] DISPOSABLE SCOPE URO-G FLEXIBLE SCOPE Procedure code (CPT) selection complete Office Meds lidocaine HCl 2 % mucosal jelly in applicator Performing Provider: Jean Busch MD Performing Location: [facility] Administered by: John Salvador LPN on 10/11/25 14:31 Dose Route Admin Location Dispensed Lot Number Expiration Date ND Lotteries Agent 10 mL intra-urethral 10 mL nitrofurantoin monohydrate/macrocrystals 100 mg capsule Performing Provider: Jean Busch MD Performing Location: [facility] Administered by: John Salvador LPN on 10/11/25 14:31 Dose Route Admin Location Dispensed Lot Number Expiration Date ND Lotteries Agent 100 mg PO 1 cap Results AMB Urinalysis, Automated UA Leukoctes 0 Lianne/uL Last Edit by Jimena Thomson [facility] on 10/11/25 14:17 UA Nitrite Negative Last Edit by Jimena Thomson [facility] on 10/11/25 14:17 UA Urobilinogen 0.2 mg/dL Last Edit by Jimena Thomson [facility] on 10/11/25 14:17 UA Protein 0 mg/dL Last Edit by Jimena Thomson [facility] on 10/11/25 14:17 UA pH 5.5 Last Edit by Jimena Thomson [facility] on 10/11/25 14:17 UA Blood 0 Cb/uL Last Edit by Jimena Thomson [facility] on 10/11/25 14:17 UA Specific [place] 1.010 Last Edit by Jimena Thomson [facility] on 10/11/25 14:17 UA Ketone Negative Last Edit by Jimena Thomson [facility] on 10/11/25 14:17 UA Bilirubin 0 mg/dL Last Edit by Jimena Thomson [facility] on 10/11/25 14:17 UA Glucose 1000 mg/dL Last Edit by [facility] on 10/11/25 14:17 AMB Urinalysis, Automated UA Leukoctes 0 Lianne/uL Last Edit by Jimena Colon, [facility] on 10/11/25 14:27 UA Nitrite Negative Last Edit by Jimena Colon, [facility] on 10/11/25 14:27 UA Urobilinogen 0.2 mg/dL Last Edit by Jimena Colon, [facility] on 10/11/25 14:27 UA Protein 0 mg/dL Last Edit by Jimena Colon, [facility] on 10/11/25 14:27 UA pH 5.5 Last Edit by Jimena Colon, [facility] on 10/11/25 14:27 UA Blood 0 Cb/uL Last Edit by Jimena Colon, [facility] on 10/11/25 14:27 UA Specific [place] 1.010 Last Edit by Jimena Colon, [facility] on 10/11/25 14:27 UA Ketone Negative Last Edit by Jimena Colon, [facility] on 10/11/25 14:27 UA Bilirubin 0 mg/dL Last Edit by Jimena Colon, [facility] on 10/11/25 14:27 UA Glucose 1000 mg/dL Last Edit by Jimena Colon, [facility] on 10/11/25 14:27 Results Reviewed Results Reviewed: Laboratory Last Values Urine pH (Auto) 5.5 10/11/25 14:16 Urine pH (Auto) 5.5 10/11/25 14:16 Specific [place] (Auto) 1.010 10/11/25 14:16 Specific [place] (Auto) 1.010 10/11/25 14:16 Urine Protein (Auto) 0 mg/dL 10/11/25 14:16 Urine Protein (Auto) 0 mg/dL 10/11/25 14:16 Glucose (UA)(Auto) 1000 mg/dL 10/11/25 14:16 Glucose (UA)(Auto) 1000 mg/dL 10/11/25 14:16 Urine Ketones (Auto) Negative 10/11/25 14:16 Urine Ketones (Auto) Negative 10/11/25 14:16 Urine Blood (Auto) 0 Cb/uL 10/11/25 14:16 Urine Blood (Auto) 0 Cb/uL 10/11/25 14:16 Urine Nitrite (Auto) Negative 10/11/25 14:16 Urine Nitrite (Auto) Negative 10/11/25 14:16 Urine Bilirubin (Auto) 0 mg/dL 10/11/25 14:16 Urine Bilirubin (Auto) 0 mg/dL 10/11/25 14:16 Urine Urobilinogen (Auto) 0.2 mg/dL 10/11/25 14:16 Urine Urobilinogen (Auto) 0.2 mg/dL 10/11/25 14:16 Leukocyte Esterase (Auto) 0 Lianne/uL 10/11/25 14:16 Leukocyte Esterase (Auto) 0 Lianne/uL 10/11/25 14:16 Assessment & Plan Assessment & Plan (1) Bladder cancer: Comment: Superficial high-grade Code(s): C67.9 - Malignant neoplasm of bladder, unspecified Category: Medical Plan Bladder immunotherapy Bladder immuno/chemotherapy was discussed today. These medications are used to create an immune reaction against bladder cancer. The intention is to destroy any tumor cells left on the bladder surface. Since BCG and gemcitabine involved immunostimulation they are not indicated in situations where there is immune weakness. Medications are placed directly into the bladder. It should be held for one to 2 hours. The toilet should be disinfected with a cap full of household bleach prior to urination. Side effects from BCG and gemcitabine generally include mucosa-related changes such as urinary urgency and/or frequency, and hematuria BCG may also invoke an infection type response. An elevated temperature may be indicative of more serious issues and should be reported to the Dr. The intention with bladder immunotherapy is to reduce the frequency of bladder cancer recurrence by 50%. Availability of BCG is highly variable. There is a single manufacture who has had difficulty with compliance quality performance analyst since 2016. Multiple protocols are available - mitomycin-C for alkalinization - 40mg/200mg in 40cc NSal - A Randomized Clinical Trial of Intravesical Instillation of Mitomycin-C and Combination of Mitomycin-C and Cytarabine (Estella-C) in Non-Muscle Invasive Bladder Cancer - Thien Bob BJU Int. 2021;129(4):534-541. doi: 10.1111/bju.35132 - Combination Gemcitabine/Docetaxel - 1gm/40mg in 100cc NSal 60 min (Intravesical gemcitabine and docetaxel in the treatment of BCG-na?ve non?muscle invasive urothelial carcinoma of the bladder: Updates from a phase 2 trial. Crossref DOI link:?https://doi.org/10.1200/JCO.2023.41.6_suppl.507) Will undergo - gemcitabine with docetaxel Orders: Orders AMB Urinalysis Automated Today N13.8 - Other obstructive and reflux uropathy, N40.1 - Benign prostatic hyperplasia with lower urinary tract symptoms Urine Cytology Today R31.29 - Other microscopic hematuria AMB Urinalysis Automated Today N13.8 - Other obstructive and reflux uropathy, N40.1 - Benign prostatic hyperplasia with lower urinary tract symptoms AMB Cystoscopy Today N32.81 - Overactive bladder, N39.0 - Urinary tract infection, site not specified, R31.0 - Gross hematuria, R31.29 - Other microscopic hematuria Patient Instructions: This note is constructed using voice recognition software. While every effort has been made to ensure accuracy decorating inspector errors may have been included. Imaging studies, laboratory and physical exam results were discussed and reviewed in detail. No major barriers to patient understanding were identified. An opportunity to ask questions regarding the treatment plan was provided. All questions were answered. The patient expressed understanding and agreement with the above treatment plan. The patient is aware they should contact our office by phone for worsening of their current condition or the appearance of new urologic symptoms. Compliance is encouraged with any medications and followup testing that is ordered. It is a privilege to participate in the urologic care of your patient. If you have any questions or concerns regarding treatment for the above conditions, or other urologic issues, please do not hesitate to contact me. The office telephone contact is [phone]. Sincerely, Dr Jean Busch MD, [facility] - Urology Compassionate Specialist Care for the Genitourinary System Coding Level of Care Code Est Pt Level 3 (38059) Complex visit Add On G2211 Diagnoses Bladder cancer C67.9 CPT Codes Cystoscopy - CPT: 70011-[id number] ([id number])
--- OUTSIDE RECORDS SUMMARY | 2025-10-11 19:04 | XMS_ITS | Encounter Summary ---
Author Organization [email or web address] Address [address] [place] [address] Care Team Providers Care Customer Trainer Name Role Phone Hernan Urbina MD Primary Care Prov ider Smitha Salas PharmD Unavailable [phone] Encounter Details Date Type Department Care Team (Late st Contact Info) Description 01/24/2025 Orders Only [facility] MED & PEDS [address] [place] [address] Hernan Urbina MD [address] [place] [address] Social History Tobacco Use Types Packs/Day Years [...] Care Team (Late st Contact Info) Description 10/31/2025 2:00 PM EST Medication Management [facility] MED & PEDS [address] [place] [address] Smitha Salas, PharmD [address] [place] [address] 11/07/2025 1:30 PM EST Office Visit [facility] ADULT DENTAL [address] [place] [address] Domingo Spence 11/17/2025 2:30 PM EST Office Visit [facility] [address] [place] [address] Hernan Urbina MD [address] [place] [address] documented as of this encounter Visit Diagnoses Not on filedocumented in this encounter Additional Health Concerns Assessment Noted Time PHQ-9 Depression Total Score: 2 12/21/19 8:57 AM EST documented as of this encounter Care Teams Customer Trainer Relationship Specialty Start Date End Date Hernan Urbina MD [address] [place] [address] PCP - General Internal Medicine 01/21/25 Smitha Salas, PharmD [address] [place] [address] Pharmacist Pharmacy 06/09/25 documented as of this encounter
--- OUTSIDE RECORDS SUMMARY | 2025-10-11 19:05 | XMS_ITS | Encounter Summary ---
Author Organization [employer] Address [address] [place] [address] Care Team Providers Care Stamp Analyst Name Role Phone Hernan Urbina MD Primary Care Prov ider Smitha Salas PharmD Unavailable [phone] Reason for Referral * Consultation (Routine) - Canceled Specialty Diagnoses / Procedures Referred By Contac t Referred To Contact Pharmacy Diagnoses Primary hypertension Hernan Urbina MD [address] [place] [address] Phone: tel: fax: Referral ID Status Reason Start Date Expiration Date V isits Requested Visits Authorized [id number] Canceled Continuity of Care 05/17/2025 05/17/2026 6 6 Encounter Details Date Type Department Care Team ([facility] st Contact Info) Description 04/05/2025 Orders Only [facility] MED & PEDS [address] [place] [address] Hernan Urbina MD [address], [place] [phone] Primary hypertension (Primary Dx) Social History Tobacco [...] Description 10/31/2025 2:00 PM EST Medication Management [facility] MED & PEDS [address] [place] [address] Smitha Salas, PharmD [address] [place] [address] 11/07/2025 1:30 PM EST Office Visit [facility] ADULT DENTAL [address] [place] [address] Domingo Spence 11/17/2025 2:30 PM EST Office Visit [facility] MED [facility] PED[facility] [address] [place] [address] Hernan Urbina MD [address] [place] [address] Scheduled Referrals Name Type Priority Associated Diagnoses Orde r Schedule Referral to Pharmacy MTM Outpatient Referral Routine Primary hypertension Ordered: 05/17/2025 documented as of this encounter Visit Diagnoses Diagnosis Primary hypertension- Primary Unspecified essential hypertension documented in this encounter Additional Health Concerns Assessment Noted Time PHQ-9 Depression Total Score: 2 12/21/19 25 8:57 AM EST documented as of this encounter Care Teams Stamp Analyst Relationship Specialty Start Date End Date RajputHernan Lane MD [address] [place] [address] PCP - General Internal Medicine 01/21/25 Smitha Salas, Marilu [address] [place] [address] Pharmacist Pharmacy 06/09/25 documented as of this encounter
--- OUTSIDE RECORDS SUMMARY | 2025-10-11 19:05 | XMS_ITS | Clinical Summary ---
Author Organization [employer] Address [address] [facility] [address] [place] [address] Care Team Providers Care Rail Track Maintainer Name Role Phone Hernan Urbina MD Primary Care Prov ider Smitha Salas PharmD Unavailable [phone] Allergies Active Allergy Reactions Criticality Noted Date Comments Oxycodone 03/03/2017 Shrimp Extract 03/15/2016 Vitamin D (Calciferol) 12/21/2024 Medications apixaban (Eliquis) 5 MG tablet Take 1 [...] mouth Once per day. 90 tablet 3 5 3:35 PM EST 02/23/20 25 026 Active rosuvastatin (Crestor) 20 MG tablet Take 1 tablet (20 mg) by mouth Once per day. 90 tablet 3 5 3:30 PM EST 04/27/20 25 026 Active estradiol (Estrace) 0.1 MG/GM vaginal cream Aplique ramos cantidad del tamao de un guisante en la uretra diariamente keysha 1 mes y luego 3 veces por semana entonces duespes de eso. 05/19/20 25 Active ammonium lactate (Amlactin) 12 % cream APPLY TO FEET TWICE DAILY 04/04/20 25 Active Gemtesa 75 MG tablet Take 1 tablet by mouth in the morning. 08/04/20 25 Active repaglinide (Prandin) 0.5 MG tabletIndicat ions:Type 2 diabetes mellitus with diabetic peripheral angiopathy without gangrene, without long-term current use of insulin (HCC) Take 1 tablet by mouth only before meals (maximum 3 times per day) 90 tablet 1 08/12/20 25 Active ezetimibe (Zetia) 10 MG tablet TAKE ONE TABLET EVERY EVENING 90 tablet 08/31/20 25 Active semaglutide (Rybelsus) 14 MG tabletIndicat ions:Type 2 diabetes mellitus with diabetic peripheral angiopathy without gangrene, without long-term current use of insulin (HCC) Take 1 tablet (14 mg) by mouth before breakfast. 30 tablet 2 5 3:34 PM EST 09/05/20 25 Active glucose blood (FREESTYLE LITE) test stripIndicati ons:Type 2 diabetes mellitus with diabetic peripheral angiopathy without gangrene, without long-term current use of insulin (HCC) Test blood sugar at least 3 times per week 50 each 5 5 3:35 PM EST 09/05/20 25 Active gabapentin (Neurontin) 300 MG capsule TAKE ONE CAPSULE BY MOUTH AT NIGHT DAILY X 7 DAYS THEN CAN INCREASE TO TWICE DAILY 08/17/20 25 Active Fluocinolone Acetonide Scalp (De Borgia-Smooth e/FS Scalp) 0.01 % oilIndication s:Dandruff in adult To apply to the scalp 2 times a week. Cover w/ a Durag. Wash the hair the following morning. 118 mL 2 5 3:37 PM EST 09/20/20 25 Active salicylic acid (Nizoral Psoriasis Shampoo/Cond) 3 % shampooIndica tions:Dandruf f in adult Apply 1 Application. topically Once per day. 120 mL 2 5 2:19 PM EST 09/20/20 25 Active hydrOXYzine HCl (Atarax) 10 MG tablet TAKE ONE TABLET EVERY EVENING NEEDED FOR HIVES 30 tablet 5 3:30 PM EST 09/26/20 25 Active Farxiga 10 MG TAKE ONE TABLET EVERY MORNING 90 tablet 5 3:30 PM EST 10/03/20 25 Active Farxiga 10 MG TAKE 1 TABLET BY MOUTH EVERY MORNING 90 tablet 07/08/20 25 025 Discontinued hydrOXYzine HCl (Atarax) 10 MG tablet TAKE ONE TABLET EVERY EVENING NEEDED FOR HIVES 30 tablet 08/31/20 025 Discontinued(Re order (will not trigger notification to Pharmacy)) Active Problems Problem Noted Date Diagnosed Date Uterine fibroid 08/08/2025 Urinary incontinence, mixed 08/08/2025 Recurrent UTI 08/08/2025 Postmenopausal bleeding 08/08/2025 Overview (08/08/2025): Recurrent Osteopenia after menopause 08/08/2025 Primary localized osteoarthrosis of ankle and fo ot 08/08/2025 Oropharyngeal dysphagia 08/08/2025 Overview (08/08/2025): Seen on video fluoroscopic swallow done at [facility] 07/15/[address] Olvera Fatty liver 08/08/2025 Depression 08/08/2025 Coronary arteriosclerosis 08/08/2025 Overview (08/08/2025): s/p SHIRA , ff'd at [facility] by Dr cruz Bladder cancer ([facility]) 08/08/2025 Overview (08/08/2025): Superficial high-grade Asthma in adult 08/08/2025 Anxiety 08/08/2025 Encounter for screening mamm ogram for malignant neoplasm of breast 01/21/2025 Assessment & Plan (01/21/2025 10:16 AM EDT): Patient wants to undergo mammogram test Encounter to establish care 12/21/2024 Assessment & Plan (12/21/2024 9:19 AM EST): Last pcp visit 1 year at [facility] ER: November due to vaginal bleeding, back pain [facility]: 6 years ago due to DE s/p stent x2 Pmhx: DM, HTN, Cholesterol, DE s/p stent x2, CHF, atrial fibrillation Pshx: [...] 12:28 PM EST): On farxiga and januvia Acute ST segment elevation myocardial infarction 02/24/2019 Primary hypertension 11/12/2017 Assessment & Plan (07/19/2025 [...] Encounters Date Type Department Care Team Description 09/28/2025 Refill [facility] [address] [place] [address] Radha Godoy MD 09/26/2025 Telephone [facility] [address] [place] [address] Hernan Urbina MD Medication Question 09/26/2025 Refill [facility] [address] [place] [address] Hernan Urbina MD 09/21/2025 Telephone [facility] [address] [place] [address] Hernan Urbina MD Housing Form (I called the patient, regarding a reasonable accommodation request, from the [facility]. She stated that she is requesting to have her bathtub changed, due to having difficulty getting into it. She has back pain, and difficulty lifting her legs. She is requesting to have a walk-in tub installed.) 09/20/2025 3:00 PM EST Office Visit [facility] [address] [place] [address] Christopher Spence MD Dandruff in adult (Primary Dx) 09/19/2025 Travel 09/18/2025 Travel 09/05/2025 Travel 08/29/2025 Travel 08/29/2025 Refill [facility] [address] [place] [address] Hernan Urbina MD 08/12/2025 Orders Only [facility] External Provider, [facility] 08/12/2025 Travel 08/04/2025 2:45 PM EDT Office Visit [facility] [address] [place] [address] Stanley Miller CNP Chronic right-sided low back pain with right-sided sciatica (Primary Dx); Type 2 diabetes mellitus with diabetic peripheral angiopathy without gangrene, without long-term current use of insulin ([facility]); History of bladder cancer; Pelvic pain 08/04/2025 Travel 08/04/2025 Telephone [facility] [address] [place] [address] Hernan Urbina MD Nurse Triage 08/02/2025 Refill [facility] [address] [place] [address] Christopher Spence MD 08/01/2025 Travel 07/19/2025 1:00 PM EDT Telemedicine [facility] [address] [place] [address] Hernan Urbina MD Primary hypertension (Primary Dx); Type 2 diabetes mellitus with diabetic peripheral angiopathy without gangrene, without long-term current use of insulin (CMS/HCC); Screening for colon cancer 07/19/2025 Travel 07/18/2025 Telephone [facility] [address] [place] [address] Hernan Urbina MD CHART PREP from Last 3 Months Immunizations Immunization Administration Dates Next Due [facility] SARS-CoV-2 Vaccination 04/12/2021 MMR 11/15/2010,10/08/2010 Moderna Covid-19 [...] Sign Reading Time Taken Comments Blood Pressure 154/73 09/20/2025 2:44 PM EST Pulse 86 09/20/2025 2:44 PM EST Temperature 36.5 C (97.7 F) 09/20/2025 2:44 PM EST Respiratory Rate 20 09/20/2025 2:44 PM EST Oxygen Saturation 96% 09/20/2025 2:44 PM EST Inhaled Oxygen Concentration - - Weight 57.2 kg (126 lb) 09/20/2025 2:44 PM EST Height 151 cm (4' 11.45 ) 09/20/2025 2:44 PM EST Body Mass Index 25.07 09/20/2025 2:44 PM EST Plan of Treatment Upcoming Encounters Date Type Department Care Team (Late st Contact Info) Description 10/31/2025 2:00 PM EST Medication Management [facility] [address] [place], [place] [phone] Smitha Salas, PharmD [address] [facility] [place] [address] 11/07/2025 1:30 PM EST Office Visit [facility] [address] [place] [address] Domingo Spence 11/17/2025 2:30 PM EST Office Visit [facility] [address] [place] [address] Hernan Urbina MD [address] [place], [place] [phone] Health Maintenance Due Date Last Done Comments CT Colonography 1955 Colonoscopy 1955 Colorectal Cancer Screening 1955 FIT DNA/Cologuard 1955 FIT 1955 FOBT 1955 Sigmoidoscopy 1955 Eye Exam 01/31/1966 Hepatitis A Vaccines (1 of 2 - Risk 2-dose series) 01/31/1975 Pneumococcal Vaccine: 50+ Years (1 of 2 - PCV) 01/31/1975 RSV Patients and Patients Aged 60 years or older (1 - Risk 50-74 years 1-dose series) 01/31/2006 Hepatitis B Vaccines (1 of 3 - Risk 3-dose series) 2016 Zoster Vaccines (2 of 3) 07/25/2017 05/30/2017 Dental Oral Exam 02/12/2025 08/13/2024, 08/2024, 04/16/2023 COVID-19 Vaccine (3 - 2024- season) 2025 11/20/2021, 04/12/2021 Influenza Vaccine (#1) 2025 Dental X-Ray: Bitewings 08/14/2025 08/13/20 24, 06/17/2024, 04/16/2023 Dental Prophylaxis 11/04/2025 05/03/2025, 1 , 02/11/2024, Additional history exists Diabetes: Hemoglobin A1C 11/04/2025 025, 05/16/2025, 01/21/2025 Depression Screening 12/21/2025 12/21/2024, 12/21/19 SDOH Screening 12/21/2025 12/21/2024 Diabetes: Foot Exam 01/21/2026 01/21/2025, 01/21/2025, 01/21/2025, Additional history exists Diabetes: Urine Protein Screening 01/21/2026 01/21/2025 Lipid Panel 01/21/2026 01/21/2025 Dental X-Ray: Full Mouth 04/26/2026 04/25/2023 Alcohol/Substance Use Screening 04/27/2026 04/27/2025 Tobacco Screening 09/20/2026 09/20/2025 Mammogram 03/22/2027 03/22/2025, 01/02, 07/27/2018, Additional history [...] on patient's age to complete this topic Goals Goal Patient Goal Type Associated Problems Recent Progress Patient-Stated? Author Help patients manage their type 2 diabetes Care Plan Help patients manage their type 2 diabetes No Smitha Salas, PharmEric Weekly blood pressure task Care Plan Weekly blood pressure task No Smitha Salas, PharmEric Help patients manage their type 2 diabetes Care Plan Help patients manage their type 2 diabetes No Smitha Salas, PharmEric Patient has chronic kidney disease Care Plan Patient has chronic kidney disease No Smitha Salas PharmD Weekly blood pressure task Care Plan Weekly blood pressure task No Smitha Salas PharmD Patient has chronic kidney disease Care Plan Patient has chronic kidney disease No Smitha Salas PharmD Weekly blood pressure task Care Plan Weekly blood pressure task No Amber Viera [place] Weekly blood pressure task Care Plan Weekly blood pressure task No Amber [place] Patient has chronic kidney disease Care Plan Patient has chronic kidney disease No Amber [place] Patient has chronic kidney disease Care Plan Patient has chronic kidney disease No Amber [place] Weekly blood pressure task Care Plan Weekly blood pressure task No Paola Rizo Weekly blood pressure task Care Plan Weekly blood pressure task No SanttalagoaguiPaola aguirre Patient has chronic kidney disease Care Plan Patient has chronic kidney disease No Paola Rizo Patient has chronic kidney disease Care Plan Patient has chronic kidney disease No Paola Rizo Procedures Procedure Name Priority Date/Time Associated Diagnosis Comments POCT GLUCOSE Routine 09/05/2025 2:37 PM EST Type 2 diabetes mellitus with diabetic peripheral angiopathy without gangrene, without long-term current use of insulin (HCC) XR LUMBAR SPINE 2-3 VIEWS Routine 08/12/2025 10:16 PM EDT XR HIP RIGHT WITH PELVIS 1 VIEW Routine 08/12/2025 10:14 PM EDT XR LUMBAR SPINE 2-3 VIEWS Routine 08/05/2025 [...] without long-term current use of insulin (HCC) PROPHYLAXIS - ADULT Routine 05/03/2025 2 :00 [...] Results * (ABNORMAL) POCT glucose manually resulted (09/05/2025 2:37 PM EST) Only the most recent of2 resultswithin the time period is included. Glucose Blood, POC 500(A) 60 - 200 mg/dL QC Media Lot # [id number] Lot# Expiration Date , Blood Capillary blood specimen / Unknown 09/05/2025 2:37 PM EST Hernan Aaron MD POINT OF CARE TEST ENTER/EDIT ORDERABLES Final Result * XR Lumbar Spine 2-3 Views (08/12/2025 10:16 PM EDT) Only the most recent of2 resultswithin the time period is included. Anatomical Region Laterality Modality Spine, L-spine Radiographic Blanca ging 08/12/2025 10:1 6 PM EDT Narrative 08/12/2025 10:18 PM EDT [place] [address] XRay Report Signed Patient: Meena Hidalgo MR#: [id number] 061 : 1955 Acct:[id number] Age/Sex: 70 / F ADM Date: 08/12/25 Loc: .ED Attending Dr: Ordering Physician: Dayan Damon Date of Service: 08/12/25 Procedure(s): XR lumbar spine 2-3V Accession Number(s): [id number] cc: Hernan Urbina MD; Dayan Damon Reason for Exam: pain CLINICAL HISTORY: pain 3 views lumbar spine Comparison: CR/SR - XR LUMBAR SPINE 2-3 VIEWS - 08/05/25 11:11 EDT Findings: Normal vertebral body alignment. Mild osteopenia. Diffuse idiopathic skeletal hyperostosis No fracture or dislocation. L5-S1: Moderate to severe DJD. IMPRESSION: 1. Moderate to severe degenerative joint disease at L5-S1. 2. Diffuse idiopathic skeletal hyperostosis. 3. Mild osteopenia. 4. No acute osseous abnormality. This document has been electronically signed by: Joni Art MD on 08/12/2025 22:16:54 Dictated By: Joni Art MD Signed By: <Electronically signed by Joni Art MD in OV> 08/12/252217 DD/ 15 TD/TT: 08/12/252215 Monitoring Specialist: Procedure Note Donotuseinterpreter, Image - 08/12/[address] [address] XRay Report Signed Patient: Tiffanie Hidalgo#: [id number] 061 : 6Acct:[id number] Age/Sex: 70 / FADM Date: 08/12/25 Loc: HO.ED Attending Dr: Ordering Physician: Dayan Damon Date of Service: 08/12/25 Procedure(s): XR lumbar spine 2-3V Accession Number(s): [id number] cc: Hernan Urbina MD; Dayan Damon Reason for Exam: pain CLINICAL HISTORY: pain 3 views lumbar spine Comparison: CR/SR - XR LUMBAR SPINE 2-3 VIEWS - 08/05/25 11:11 EDT Findings: Normal vertebral body alignment. Mild osteopenia. Diffuse idiopathic skeletal hyperostosis No fracture or dislocation. L5-S1: Moderate to severe DJD. IMPRESSION: 1. Moderate to severe degenerative joint disease at L5-S1. 2. Diffuse idiopathic skeletal hyperostosis. 3. Mild osteopenia. 4. No acute osseous abnormality. This document has been electronically signed by: Joni Art MD on 08/12/2025 22:16:54 Dictated By: Joni Art MD Signed By: <Electronically signed by Joni Art MD in OV> 08/12/252217 DD/ 15 TD/TT: 08/12/252215 Monitoring Specialist: [facility] External Provider IMG XR PROCEDURES Edited Result - Final * XR Hip right with Pelvis 1 view (08/12/2025 10:14 PM EDT) Anatomical Region Laterality Modality Lower Extremities, Hip Bilateral Radiograp hic Imaging 08/12/2025 10:1 4 PM EDT Narrative 08/12/2025 10:16 PM EDT [address] [address] XRay Report Signed Patient: Meena Hidalgo MR#: [id number] 061 : 1955 Acct:[id number] Age/Sex: 70 / F ADM Date: 08/12/25 Loc: HO.ED Attending Dr: Ordering Physician: Dayan Damon Date of Service: 08/12/25 Procedure(s): XR hip RT w PEL1V Accession Number(s): [id number] cc: Hernan Urbina MD; Dayan Damon Reason for Exam: pain CLINICAL HISTORY: pain 3 view, pelvis and right hip Comparison: None provided Findings: Mild osteopenia. No significant arthritic change. The soft tissues are unremarkable. Two separate surgical clips projected of the right inguinal region. IMPRESSION: 1. No acute osseous injury. This document has been electronically signed by: Joni Art MD on 08/12/2025 22:14:42 Dictated By: Joni Art MD Signed By: <Electronically signed by Joni Art MD in OV> 08/12/252214 DD/ 13 TD/TT: 08/12/252213 Monitoring Specialist: Procedure Note Donotuseinterpreter, Image - 08/12/[address] [address] XRay Report Signed Patient: Ramin HidalgoR#: [id number] 061 : 1955cct:[id number] Age/Sex: 70 / FADM Date: 08/12/25 Loc: .ED Attending Dr: Ordering Physician: Dayan Damon Date of Service: 08/12/25 Procedure(s): XR hip RT w PEL1V Accession Number(s): [id number] cc: Hernan Urbina MD; Dayan Damon Reason for Exam: pain CLINICAL HISTORY: pain 3 view, pelvis and right hip Comparison: None provided Findings: Mild osteopenia. No significant arthritic change. The soft tissues are unremarkable. Two separate surgical clips projected of the right inguinal region. IMPRESSION: 1. No acute osseous injury. This document has been electronically signed by: Joni Art MD on 08/12/2025 22:14:42 Dictated By: Joni Art MD Signed By: <Electronically signed by Joni Art MD in OV> 08/12/252214 DD/ 13 TD/TT: 08/12/252213 Monitoring Specialist: [facility] External Provider IMG XR PROCEDURES Edited Result - Final * (ABNORMAL) CBC auto differential (08/04/2025 3:23 PM EDT) White Blood Count 7.8 4.8 - 10.8 X10*3/uL [facility] Red Blood Count 4.37 4.20 - 5.50 X10*6/uL [facility] Hemoglobin 13.5 12.0 - 16.0 g/dl [facility] Hematocrit 40.8 37.0 - 47.0 % [facility] Mean Corpuscular Volume 93.4 80.0 - 98.0 fL [facility] Mean Corpuscular Hemoglobin 30.9 27.0 - 33.0 pg [facility] Mean Corpuscular HGB Conc 33.1 31.0 - 35.0 g/dl [facility] Red Cell Distribution Width 11.5 11.0 - 16.0 % [facility] Platelet Count 245 160 - 400 X10*3/uL [facility] Mean Platelet Volume 11.5 9.4 - 12.3 fL [facility] Neutrophils Percent Auto 69.8 45 - 73 % [facility] Imm Gran Pct Auto 0.1 0.0 - 0.4 % [facility] Lymphocytes Percent Auto 17.2(L) 20 - 40 % [facility] Monocytes Percent Auto 10.9 2 - 11 % [facility] Eosinophils Percent Auto 1.7 0 - 4 % [facility] Basophils Percent Auto 0.3 0 - 2 % [facility] NRBC Pct Auto 0.0 0.0 - 0.2 /100WBC [facility] Neutrophils Absolute Auto 5.4 2.0 - 8.3 x10*3/uL [facility] Imm Gran Abs Auto 0.01 0.00 - 0.03 X10*3/uL [facility] Lymphocytes Absolute Auto 1.3 1.2 - 4.9 X10*3/uL [facility] Monocytes Absolute Auto 0.9 0.1 - 1.2 X10*3/uL [facility] Eosinophils Absolute Auto 0.1 0.0 - 0.4 X10*3/uL [facility] Basophils Absolute Auto 0.0 0.0 - 0.2 X10*3/uL [facility] NRBC Abs Auto 0.000 0.0 - 0.012 X10*3/uL [facility] Blood Venous blood specimen / Unknown 08/04/2025 3:23 PM EDT 08/04/2025 5:36 PM EDT [facility] LAB BLOOD ORDERABLES Violetta l Result [facility] [address] [place] [phone] * Sed Rate by Modified Vernren (08/04/2025 3:23 PM EDT) Erythrocyte Sedimentation Rate 15 0 - 20 MM/HR [facility] Comment:Patients with polycy themia and many hemoglobin abnormalitiesmay have depressed sed rates whereas patients with anemiamay have elevated sed rates. Blood Venous blood specimen / Unknown 08/04/2025 3:23 PM EDT 08/04/2025 5:36 PM EDT [facility] LAB BLOOD ORDERABLES Violetta l Result Performing Organization Address City/[facility] Co de Phone Number [facility] [address] [place] [phone] * (ABNORMAL) C-reactive Protein (08/04/2025 3:23 PM EDT) C Reactive Protein 1.05(H) < or = 0.50 mg/dL [facility] Blood Venous blood specimen / Unknown 08/04/2025 3:23 PM EDT 08/04/2025 5:36 PM EDT [facility] LAB BLOOD ORDERABLES Violetta l Result Performing Organization Address [facility] Co de Phone Number [facility] [address] [place] [phone] * (ABNORMAL) POCT urinalysis dipstick manually [...] Appearance, UA clear QC Media Lot # Comment:[id number] Lot# Expiration Date Comment:05/02/2026 Urine 08/04/2025 3:03 PM EDT [facility] POINT OF CARE TEST ENTER/ EDIT ORDERABLES Final Result * (ABNORMAL) POCT A1c (08/04/2025 3:02 PM EDT) Hemoglobin A1C 11.8(A) 4.0 - 5.7 % QC Media Lot # Comment:[id number] Lot# Expiration Date Comment:02/24/2027 Blood 08/04/2025 3:02 PM EDT [facility] POINT OF CARE TEST ENTER/ EDIT ORDERABLES Final Result * BI Mammogram Screening Tomosynthesis Bilateral (03/22/2025 9:45 AM EDT) Anatomical Region Laterality Modality Breast Bilateral Mammography 03/22/2025 9:45 AM EDT Narrative 03/28/2025 9:15 PM EDT Krist[facility] [address] [place] [address] Mammography Report Signed Patient: Meena Hidalgo MR#: [id number] 061 : 1955 Acct:[id number] Age/Sex: 70 / F ADM Date: 03/22/25 Loc: HO.MAMMO Attending Dr: Hernan Aaron MD Ordering Physician: Hernan Urbina MD Res ults: 1Negative Date of Service: 03/22/25 Follow Up: 1 Year From Orig ina Mammogram Procedure(s): MM tomosynthesis screening BI Accession Number(s): [id number] cc: Hernan Urbina MD EXAMINATION: MM SCREENING [...] Denise Fernandez DO in OV> 03/28/252111 DD/ 4 TD/TT: 03/22/25 1007 Monitoring Specialist: Procedure Note Donotuseinterpreter, Image - 03/28/2025 [facility] [address] [place] [address] Mammography Report Signed Patient: Tiffanie Hidalgo#: [id number] 061 : 6Acct:[id number] Age/Sex: 70 / FADM Date: 03/22/25 Loc: HO.MAMMO Attending Dr: Hernan Aaron MD Ordering Physician: Hernan Urbina ults: 1Negative Date of Service: 03/22/25Follow Up: 1 Year From Orig inal Mammogram Procedure(s): MM tomosynthesis screening BI Accession Number(s): [id number] cc: Hernan Urbina MD EXAMINATION: MM SCREENING [...] OV> 03/28/252111 DD/ 0945 TD/TT: 03/22/25 1007 Monitoring Specialist: us Hernan Aaron MD IMG BI PROCEDURES Edited Result - Final * (ABNORMAL) Albumin, Random Urine W/Creatinine (01/21/2025 10:40 AM EDT) Creatinine, Urine 72.43 mg/dL [facility] Microalbumin Urine 27.0 mg/L H [facility] Microalbum Creatinine Ratio Ur 37.2(H) <30 ug/mg cr [facility] Comment:Albumin/Creatinine R atio Reference Ranges: Normal: < 30 ug/mg creatinine Microalbuminuria: 30 - 300 ug/mg creatinineClinical Albuminuria: > 300 ug/mg creatinine Urine (Urine, Random) 01/21/2025 10:40 AM EDT 01/21/2025 2:08 PM EDT us Hernan Aaron MD LAB URINE ORDERABL ES Final Result [facility] [address] [place] [phone] * (ABNORMAL) Lipid Panel, Standard (01/21/2025 10:39 AM EDT) Triglycerides 159(H) <150 mg/dL [facility] Comment:Desirable Triglyceri de: less than 150 mg/dLBorderline High Triglyceride 150-199 mg/dLHigh Triglyceride: 200-499 mg/dLVery High Triglyceride: greater than or equal to 5OO mg/dL Cholesterol 332(H) <200 mg/dL [facility] Comment:Desirable Cholestero l: less than 200 mg/dLBorderline High Cholesterol: 200-239 mg/dLHigh Cholesterol: greater than 239 mg/dL LDL Cholesterol Calculated 247(H) <100 mg/dL [facility] Comment:Desirable LDL: less than 100 mg/dLNear Optimal/Above Optimal LDL: 110- 129 mg/dLBorderline High LDL: 130-159 mg/dLHigh LDL: 160-189 mg/dLVery High LDL: greater than or equal to 190 mg/dL HDL Cholesterol 54 >40 mg/dL [facility] Comment:Desirable HDL: great er than 40 mg/dL Note: This HDL assay may give artificially low results in patients with liver disease. Blood Venous blood specimen / Unknown 01/21/2025 10:39 AM EDT 01/21/2025 2:05 PM EDT Hernan Aaron MD LAB BLOOD ORDERABL ES Final Result Performing Organization Address City/[facility]/ZIP Co de Phone Number [facility] [address] [place] [phone] * Hepatitis C Antibody with Reflex to HCV, RNA, Quantitative, Real-Time PCR (01/21/2025 10:34 AM EDT) Hepatitis C Antibody Nonreactive Nonreactive [facility] Comment:Antibodies to HCV no t detected; does not exclude early acuteHCV infection. Blood Venous blood specimen / Unknown 01/21/2025 10:34 AM EDT 01/21/2025 2:05 PM EDT Hernan Aaron MD LAB BLOOD ORDERABL ES Final Result Performing Organization Address [facility] Co de Phone Number [facility] [address] [place] [phone] from Last 3 Months or Most Recently Relevant to Health Maintenance Additional Health Concerns Active Problems Noted Date Diagnosed Date Help patients manage their type 2 diabetes 09/19 Weekly blood pressure task 09/19/2025 Help patients manage their type 2 diabetes 09/19 Patient has chronic kidney disease 09/19/2025 Weekly blood pressure task 09/19/2025 Patient has chronic kidney disease 09/19/2025 Weekly blood pressure task 09/20/2025 Weekly blood pressure task 09/20/2025 Patient has chronic kidney disease 09/20/2025 Patient has chronic kidney disease 09/20/2025 Weekly blood pressure task 09/26/2025 Weekly blood pressure task 09/26/2025 Patient has chronic kidney disease 09/26/2025 Patient has chronic kidney disease 09/26/2025 Insurance [facility] OPTIONS (HMO D-SNP) [facility] DENTAL [facility] [place] [place] [id number] Care Teams Rail Track Maintainer Relationship Specialty Start Date End Date Hernan Urbina MD [address] [place] [address] PCP - General Internal Medicine 01/21/25 Smitha Salsa, JessD [address] [place] [address] Pharmacist Pharmacy 06/09/25
--- OUTSIDE RECORDS SUMMARY | 2025-10-11 19:05 | XMS_ITS | Encounter Summary ---
Author Organization [employer] [facility] Address [address] 7t [place] [address] Care Team Providers Care Health Safety Coordinator Name Role Phone Hernan Urbina MD Primary Care Prov ider Smitha Salas PharmD Unavailable [phone] Encounter Details Date Type Department Care Team (Late Contact Info) Description 08/10/2024 Telephone [facility] [address] [place], [place] [phone] Neha Felder DMD Social History Tobacco Use [...] Upcoming Encounters Date Type Department Care Team ([facility] Contact Info) Description 10/31/2025 2:00 PM EST Medication Management [facility] [address] [place], [place] [phone] Smitha Salas, PharmD [address] [place] [address] 11/07/2025 1:30 PM EST Office Visit [facility] ADULT DENTAL 505 [place] [address] Domingo Spence 11/17/2025 2:30 PM EST Office Visit [facility] MED & PEDS [address] [place] [address] Hernan Urbina MD 505 [place] [address] documented as of this encounter Visit Diagnoses Not on filedocumented in this encounter Care Teams Health Safety Coordinator Relationship Specialty Start Date End Date Hernan Urbina MD [address] [place] [address] PCP - General Internal Medicine 01/21/25 Smitha Salas, JessD [address] [place] [address] Pharmacist Pharmacy 06/09/25 documented as of this encounter
--- OUTSIDE RECORDS SUMMARY | 2025-10-11 19:05 | XMS_ITS | Encounter Summary ---
Author Organization [employer] Address [address] 7t [place] [address] Care Team Providers Care Middle School Humanities Teacher Name Role Phone Hernan Urbina MD Primary Care Prov ider Smitha Salas PharmD Unavailable [phone] Reason for Visit * Reason Onset Date Comments Appointment 05/20/2023 Encounter Details Date Type Department Care Team ([facility] st Contact Info) Description 05/20/2023 Telephone [facility] [address] [place] [address] Thompson Cobb DDS [address] [place] [address] Appointment Social History Tobacco Use Types Packs/Day [...] Description 10/31/2025 2:00 PM EST Medication Management [facility] MED & PEDS 505 [place] [address] Smitha Salas PharmD 230 [place] [address] 11/07/2025 1:30 PM EST Office Visit [facility] ADULT DENTAL 505 [place] [address] Domingo Spence 11/17/2025 2:30 PM EST Office Visit [facility] & PEDS 505 [place] [address] Hernan Urbina MD 505 [place] [address] documented as of this encounter Visit Diagnoses Not on filedocumented in this encounter Care Teams [employer] Humanities Teacher Relationship Specialty Start Date End Date Hernan Urbina MD 505 [place] [address] PCP - General Internal Medicine 01/21/25 Smitha Salas PharmD 230 [place] [address] Pharmacist Pharmacy 06/09/25 documented as of this encounter
--- OUTSIDE RECORDS SUMMARY | 2025-10-11 19:05 | XMS_ITS | Encounter Summary ---
Author Organization [employer] Address [address] [facility] 7t [place] [address] Care Team Providers Care Account Support Rep Name Role Phone Hernan Urbina MD Primary Care Prov ider Smitha Salas PharmD Unavailable [phone] Reason for Visit * Reason Onset Date Comments Medication Question 09/26/2025 Encounter Details Date Type Department Care Team ([facility] Contact Info) Description 09/26/2025 Telephone [facility]EDS 505 [place] [address] Hernan Urbina MD 505 [place] [address] Medication Question Social History Tobacco Use Types Packs/Day Years [...] encounter Miscellaneous Notes * Telephone Encounter - Paola Wilson - 09/26/2025 2:11 PM EST Tc from Celeste at [facility] reporting insurance will not cover salicylic acid (Nizoral Psoriasis Shampoo/Cond) 3 % shampoo , naveen alternative that will be covered will be podofilox 0.5% SOLN shampoo Contact Celeste at [phone] ext [phone] documented in this encounter Plan of Treatment Upcoming Encounters Date Type Department Care Team ([facility] st Contact Info) Description 10/31/2025 2:00 PM EST Medication Management [facility] MED & PEDS 505 [place] [address] Smitha Salas, PharmD 230 [place] [address] 11/07/2025 1:30 PM EST Office Visit [facility] ADULT DENTAL 505 [place] [address] Domingo Spence 11/17/2025 2:30 PM EST Office Visit [facility] MED & PEDS [address] [place] [address] Hernan Urbina MD [address] [place] [address] documented as of this encounter Goals Goal Patient Goal Type Associated Problems Recent Progress Patient-Stated? Author Help patients manage their type 2 diabetes Care Plan Help patients manage their type 2 diabetes No Smitha Salas PharmEric Weekly blood pressure task Care Plan Weekly blood pressure task No Smitha Salas PharmEric Help patients manage their type 2 diabetes Care Plan Help patients manage their type 2 diabetes No John Salasa, PharmD Patient has chronic kidney disease Care Plan Patient has chronic kidney disease No Smitha Salas, PharmD Weekly blood pressure task Care Plan Weekly blood pressure task No Smitha Salas PharmEric Patient has chronic kidney disease Care [...] Weekly blood pressure task No Paola Rizo Patient has chronic kidney disease Care Plan Patient has chronic kidney disease No Paola Rizo Patient has chronic kidney disease Care Plan Patient has chronic kidney disease No Paola Rizo documented as of this encounter Visit Diagnoses Not on filedocumented in this encounter Additional Health Concerns Active Problems Noted Date [...] 09/26/2025 Patient has chronic kidney disease 09/26/2025 Assessment Noted Time PHQ-9 Depression Total Score: 2 12/21/19 8:57 AM EST documented as of this encounter Care Teams Account Support Rep Relationship Specialty Start Date End Date Hernan Urbina MD 505 [place] [address] PCP - General Internal Medicine 01/21/25 Smitha Salas PharmD [address] [place] [address] Pharmacist Pharmacy 06/09/25 documented as of this encounter
--- OUTSIDE RECORDS SUMMARY | 2025-10-11 19:05 | XMS_ITS | Encounter Summary ---
Author Organization [facility] Address [address] [facility] 7t [place] [address] Care Team Providers Care Caravan Park And Camping Ground Manager Name Role Phone Hernan Urbina MD Primary Care Prov ider Smitha Salas PharmD Unavailable [phone] Reason for Visit * Reason Onset Date Comments Nurse Triage 08/04/2025 Encounter Details Date Type Department Care Team ([facility] st Contact Info) Description 08/04/2025 Telephone [facility] MED & PEDS [address] [place] [address] Hernan Urbina MD 505 [place] [address] Nurse Triage Social History Tobacco Use Types [...] caller accepted this outcome. Contact pt at [phone] (cypriot) Called pt. Via Circular certified court interpreter [phone] Simone. Pt. States that she has been [...] right side of back. Appointment made in [facility] for 245pm due to pt. [...] caller accepted this outcome. Contact pt at [phone] ([employer]) documented in this encounter Plan of Treatment Upcoming Encounters Date Type Department Care Team ([facility] st Contact Info) Description 10/31/2025 2:00 PM EST Medication Management [facility] MED & PEDS [address] [place] [address] Smitha Salas, PharmD 230 [place] [address] 11/07/2025 1:30 PM EST Office Visit [facility] ADULT DENTAL [address] [place] [address] Domingo Spence 11/17/2025 2:30 PM EST Office Visit [facility] MED & PEDS [address] [place] [address] Hernan Urbina MD 505 [place] [address] documented as of this encounter Visit Diagnoses Not on filedocumented in this encounter Additional Health Concerns Assessment Noted Time PHQ-9 Depression Total Score: 2 12/21/19 25 8:57 AM EST documented as of this encounter Care Teams Car[employer] Park And Camping Ground Manager Relationship Specialty Start Date End Date Hernan Urbina MD 505 [place] [address] PCP - General Internal Medicine 01/21/25 Smitha Salas, JessD [address] [place] [address] Pharmacist Pharmacy 06/09/25 documented as of this encounter
--- OUTSIDE RECORDS SUMMARY | 2025-10-11 19:05 | XMS_ITS | Encounter Summary ---
Author Organization [facility] Address [address] [facility] [address] [facility] 7t [place] [address] Care Team Providers Care Stitch Bonder Machine Operator Helper Name Role Phone Hernan Urbina MD Primary Care Prov ider Smitha Salas PharmD Unavailable [phone] Encounter Details Date Type Department Care Team (Late st Contact Info) Description 11/15/2024 Telephone [facility] ADULT DENTAL [address] [place], [place] [phone] Neha Felder DMD Social History Tobacco Use [...] Department Care Team (Late Contact Info) Description 10/31/2025 2:00 PM EST Medication Management [facility] MED & PEDS [address] [place], [place] [phone] Smitha Salas, PharmD 230 [place] [address] 11/07/2025 1:30 PM EST Office Visit [facility]ULT [facility] 505 [place] [address] Domingo Spence 11/17/2025 2:30 PM EST Office Visit [facility] MED & PEDS 505 [place] [address] Hernan Urbina MD 505 [place] [address] documented as of this encounter Visit Diagnoses Not on filedocumented in this encounter Care Teams Stitch Bonder Machine Operator Helper Relationship Specialty Start Date End Date Hernan Urbina MD 505 [place] [address] PCP - General Internal Medicine 01/21/25 Smitha Salas PharmD [address] [place] [address] Pharmacist Pharmacy 06/09/25 documented as of this encounter
--- OUTSIDE RECORDS SUMMARY | 2025-10-11 19:05 | XMS_ITS | Encounter Summary ---
Author Organization [employer] [facility] Address [address] [place] [address] 7 [place] [address] Care Team Providers Care Branch Logistics Supervisor Name Role Phone Hernan Urbina MD Primary Care Prov ider Smitha Salas PharmD Unavailable [phone] Reason for Visit * Reason Comments Med Refill Encounter Details Date Type Department Care Team ([facility] Contact Info) Description 09/12/2023 Refill [facility] MED & PEDS 505 [place] [address] Christopher Spence MD 505 [place] [address] Social History Tobacco Use Types Packs/Day Years [...] Upcoming Encounters Date Type Department Care Team ([facility] Contact Info) Description 10/31/2025 2:00 PM EST Medication Management [facility] MED & PEDS 505 [place] [address] Smitha Salas, PharmD 230 [place] [address] 11/07/2025 1:30 PM EST Office Visit [facility] ADULT DENTAL 505 [place] [address] Rome[place]auricio campbellDomingo 11/17/2025 2:30 PM EST Office Visit [facility] MED & PED[facility] 505 [place], [place] [phone] Hernan Urbina MD 505 [place] [address] documented as of this encounter Visit Diagnoses Not on filedocumented in this encounter Care Teams Branch Logistics Supervisor Relationship Specialty Start Date End Date Hernan Urbina MD 505 [place] [address] PCP - General Internal Medicine 01/21/25 Smitha Salas, JessD [address] [place] [address] Pharmacist Pharmacy 06/09/25 documented as of this encounter
--- OUTSIDE RECORDS SUMMARY | 2025-10-11 19:05 | XMS_ITS | Encounter Summary ---
Author Organization [employer] Address [address] [facility] [address] 7t [place] [address] Care Team Providers Care Nnps Name Role Phone Hernan Urbina MD Primary Care Prov ider Smitha Salas PharmD Unavailable [phone] Reason for Visit * Reason Comments Med Refill Encounter Details Date Type Department Care Team (Late st Contact Info) Description 05/09/2025 Refill [facility] MED[facility] 230 [place] [address] Hernan Urbina MD [address] [place], [place] [phone] Social History Tobacco Use Types Packs/Day Years [...] Description 10/31/2025 2:00 PM EST Medication Management [facility] MED & PEDS 505 [place] [address] Smitha Salas, PharmD [address] [place] [address] 11/07/2025 1:30 PM EST Office Visit [facility] ADULT [facility] 505 [place] [address] Domingo Spence 11/17/2025 2:30 PM EST Office Visit [facility] MED & PEDS 505 [place] [address] Hernan Urbina MD 505 [place] [address] documented as of this encounter Visit Diagnoses Not on filedocumented in this encounter Additional Health Concerns Assessment Noted Time PHQ-9 Depression Total Score: 2 12/21/19 8:57 AM EST documented as of this encounter Care Teams Nnps Relationship Specialty Start Date End Date Hernan Urbina MD 505 [place] [address] PCP - General Internal Medicine 01/21/25 Smitha Salas, PharmD [address] [place] [address] Pharmacist Pharmacy 06/09/25 documented as of this encounter
--- OUTSIDE RECORDS SUMMARY | 2025-10-11 19:06 | XMS_ITS | Encounter Summary ---
Author Organization [employer] [facility] Address [address] [facility] 7 [place] [address] Care Team Providers Care Neurosurgery Physician Name Role Phone Hernan Urbina MD Primary Care Prov ider Smitha Salas PharmD Unavailable [phone] Encounter Details Date Type Department Care Team (Latest Contact Info) Description 02/02/2021 Abstract [facility] CONVERSIONS Dental, Provider, DDS Social [...] Description 10/31/2025 2:00 PM EST Medication Management [facility] MED & PEDS 505 [place] [address] Smitha Salas, PharmD 230 [place] [address] 11/07/2025 1:30 PM EST Office Visit [facility] ADULT DENTAL [address] [place] [address] Domingo Spence 11/17/2025 2:30 PM EST Office Visit [facility] MED & PEDS [address] [place] [address] Hernan Urbina MD 505 [place] [address] documented as of this encounter Visit Diagnoses Not on filedocumented in this encounter Care Teams Neurosurgery Physician Relationship Specialty Start Date End Date Hernan Urbina MD [address] [place] [address] PCP - General Internal Medicine 01/21/25 Smitha Salas PharmD [address] [place] [address] Pharmacist Pharmacy 06/09/25 documented as of this encounter
--- OUTSIDE RECORDS SUMMARY | 2025-10-11 19:06 | XMS_ITS | Encounter Summary ---
Author Organization [employer] Address [address] [facility] 7t [place] [address] Care Team Providers Care Hvac Maintenance Technician Name Role Phone Hernan Urbina MD Primary Care Prov ider Smitha Salas PharmD Unavailable [phone] Reason for Visit * Reason Onset Date Comments Med Refill 05/31/2025 Encounter Details Date Type Department Care Team ([facility] Contact Info) Description 05/31/2025 Telephone [facility] MED & PEDS 505 [place] [address] Hernan Urbina MD 505 [place] [address] Med Refill Social History Tobacco Use Types [...] - 05/31/2025 3:27 PM EDT TC from [facility] requesting medication refill. Medications needing refill : dapagliflozin (Farxiga) 10 MG fluticasone (Flovent HFA) 110 MCG/ACT inhaler Ventolin HFA 108 (90 Base) MCG/ACT inhaler glucose blood (FREESTYLE LITE) test strip Lancets To be sent to: [facility] [place], [place] - [address] [facility] documented in this encounter Plan of Treatment Upcoming Encounters Date Type Department Care Team (Late st Contact Info) Description 10/31/2025 2:00 PM EST Medication Management [facility] MED & PEDS [address] [place] [address] Smitha Salas PharmD 230 [place] [address] 11/07/2025 1:30 PM EST Office Visit [facility] ADULT DENTAL 505 [place] [address] Domingo Spence 11/17/2025 2:30 PM EST Office Visit [facility] MED & PEDS [address] [place] [address] Hernan Urbina MD 505 [place] [address] documented as of this encounter Visit Diagnoses Not on filedocumented in this encounter Additional Health Concerns Assessment Noted Time PHQ-9 Depression Total Score: 2 12/21/19 8:57 AM EST documented as of this encounter Care Teams Hvac Maintenance Technician Relationship Specialty Start Date End Date Hernan Urbina MD 505 [place] [address] PCP - General Internal Medicine 01/21/25 Smitha Salas PharmD 230 [place] [address] Pharmacist Pharmacy 06/09/25 documented as of this encounter
--- OUTSIDE RECORDS SUMMARY | 2025-10-11 19:06 | XMS_ITS | Encounter Summary ---
Author Organization [facility] Address [address] [facility] 7 [place] [address] Care Team Providers Care Real Estate Broker Associate Name Role Phone Hernan Urbina MD Primary Care Prov ider Smitha Salas PharmD Unavailable [phone] Encounter Details Date Type Department Care Team (Latest Contact Info) Description 04/14/2019 Abstract [facility] CONVERSIONS Dental, Provider, DDS Social History [...] 2:00 PM EST Medication Management [facility] MED & PEDS 505 [place] [address] Smitha Salas, PharmD 230 [place] [address] 11/07/2025 1:30 PM EST Office Visit [facility] ADULT DENTAL 505 [place] [address] Domingo Spence 11/17/2025 2:30 PM EST Office Visit [facility] MED & PEDS 505 [place] [address] Hernan Urbina MD 505 [place] [address] documented as of this encounter Visit Diagnoses Not on filedocumented in this encounter Care Teams Real Estate Broker Associate Relationship Specialty Start Date End Date Hernan Urbina MD [address] [place] [address] PCP - General Internal Medicine 01/21/25 Smitha Salas PharmD [address] [place] [address] Pharmacist Pharmacy 06/09/25 documented as of this encounter
--- OUTSIDE RECORDS SUMMARY | 2025-10-11 19:06 | XMS_ITS | Encounter Summary ---
Author Organization [employer] [facility] Address [address] [facility] 7 [place] [address] Care Team Providers Care Photo Intern Name Role Phone Hernan Urbina MD Primary Care Prov ider Smitha Salas PharmD Unavailable [phone] Encounter Details Date Type Department Care Team (Latest Contact Info) Description 04/15/2022 Abstract [facility] CONVERSIONS Dental, Provider, DDS Social [...] Description 10/31/2025 2:00 PM EST Medication Management [facility] MED & PEDS 505 [place] [address] Smitha Salas, PharmD 230 [place] [address] 11/07/2025 1:30 PM EST Office Visit [facility] ADULT DENTAL 505 [place] [address] Domingo Spence 11/17/2025 2:30 PM EST Office Visit [facility] MED & PEDS 505 [place] [address] Hernan Urbina MD 505 [place] [address] documented as of this encounter Visit Diagnoses Not on filedocumented in this encounter Care Teams Photo Intern Relationship Specialty Start Date End Date Hernan Urbina MD [address] [place] [address] PCP - General Internal Medicine 01/21/25 Smitha Salas PharmD [address] [place] [address] Pharmacist Pharmacy 06/09/25 documented as of this encounter
--- OUTSIDE RECORDS SUMMARY | 2025-10-11 19:06 | XMS_ITS | Encounter Summary ---
Author Organization [facility] Address [address] [place] [address] 7 [place] [address] Care Team Providers Care Milk Deliverer Name Role Phone Hernan Urbina MD Primary Care Prov ider Smitha Salas PharmD Unavailable [phone] Encounter Details Date Type Department Care Team (Late Contact Info) Description 11/01/2022 Abstract [facility] ADULT DENTAL 505 [place] [address] Thompson Cobb DDS [address] [place] [address] Social History Tobacco Use Types Packs/Day Years [...] Upcoming Encounters Date Type Department Care Team ([facility] Contact Info) Description 10/31/2025 2:00 PM EST Medication Management [facility] MED & PEDS 505 [place] [address] Smitha Salas, PharmD 230 [place] [address] 11/07/2025 1:30 PM EST Office Visit [facility] ADULT DENTAL 505 [place] [address] Domingo Spence 11/17/2025 2:30 PM EST Office Visit [facility] MED & PEDS [address] [place] [address] Hernan Urbina MD 505 [place] [address] documented as of this encounter Visit Diagnoses Not on filedocumented in this encounter Care Teams Milk Deliverer Relationship Specialty Start Date End Date Hernan Urbina MD 505 [place] [address] PCP - General Internal Medicine 01/21/25 Smitha Salas, JessD [address] [place] [address] Pharmacist Pharmacy 06/09/25 documented as of this encounter
--- OUTSIDE RECORDS SUMMARY | 2025-10-11 19:08 | XMS_ITS | Patient Health Record ---
Author Organization [facility] Address [address] [facility] [place] [address] Care Team Providers Care Immunohematologist Name Role Phone Hernan Wasserman Primary Care Provider Unavailable Kathrine Cheema Unavailable [phone] Allergies Allergen (clinical drug ingredient) Drug/Non Drug [...] Duration) Notes Start Date End Date Status Arthritis Pain PRN Activ e Extra Depth Orthopedic Shoes (1 Pair) with Customized Heat Molded Multidensity Innersoles (3 Pair) as directed Dx: NIDDM/Polyneuropathy (E11.42), Hammertoe Foot Deformity (M20.41,M20.42), Preulcerative Skin Lesion(s) (L85.1 04/23/2023 Active Ammonium Lactate 12 % 1 application to affected area Externally to feet Twice a day; Duration: 30 days Active Methylprednisolone N ot-Taking Repaglinide 2 MG TAKE ONE TABLET BY MOUTH THREE TIMES DAILY 30 MINUTES BEFORE A MEAL OR SNACK Oral; Duration: 30 Not-Taking Januvia 100 MG Oral; Duration: 30 Not-Taking CeleBREX Not-Taking Feldene 20 MG 1 capsule with food [...] Deformity (M20.41,M20.42), Preulcerative Skin Lesion(s) (L85.1 Active Lisinopril 40 MG Oral; Duration: 90 Days Active Extra Depth Orthopedic Shoes (1 Pair) [...] (M20.41,M20.42), Preulcerative Skin Lesion(s) (L85.1 01/15/2022 Not-Taking Farxiga 10 MG 1 tablet Orally Once a day; Duration: 30 day(s) Active Acetaminophen 325 MG 1 tablet as needed Orally every 4 hrs Not-Taking Rosuvastatin Calcium 40 MG 1 tablet [...] Eliquis 5 MG as directed Orally Active Gabapentin Not-Takin g Lisinopril Not-Takin g Metoprolol Succinate Active Brilinta 90 MG 1 tablet Orally Twic e a day; Duration: 30 day(s) Not-Taking Vitamin D3 2000 UNIT 1 capsule Orally On ce a day; Duration: 30 day(s) Not-Taking Immunizations Vaccine Route Administration Date Status Comme nts Influenza Unknown 08/25/2020 Refused Influenza Unknown 04/23/2023 Refused Influenza Unknown 09/20/2025 Refused COVID-19 [employer]/Elliot Unknown 04/12/2021 [...] Polyneuropathy due to type 2 diabetes mellitus (277137836) Type 2 diabetes mellitus with polyneuropathy (E11.42) Active confirmed Vital Signs Blood pressure diastolic 78 mm Hg 09/20/2025 Height [id number] in 09/20/2025 Blood pressure systolic 127 mm Hg 09/20/2025 Weight 125 lbs 09/20/2025 BMI 25.24 kg/m2 09/20/2025 Encounters Encounter Location Date Provider Diagnosis [address] [address] 11/16/2024 Kathrine Cheema Type 2 diabetes mellitus with polyneuropathy E11.42 ; Other hammer toe(s) (acquired), right foot M20.41 and Other hammer toe(s) (acquired), left foot M20.42 [facility] [place] [address] 01/25/2025 Kathrine Perica Type 2 diabetes mellitus with polyneuropathy E11.[address] [address] 04/05/2025 Kathrine Perica Type 2 diabetes mellitus with polyneuropathy E11.42 ; Other hammer toe(s) (acquired), right foot M20.41 and Other hammer toe(s) (acquired), left foot M20.[address] [address] 07/05/2025 Kathrine Perica Type 2 diabetes mellitus with polyneuropathy E11.[address] [address] 09/20/2025 Kathrine Perica Type 2 diabetes mellitus with polyneuropathy E11.[address] [address] 05/25/2025 Kathrine Perica [address] [address] 09/12/2025 Kathrine Kanga Assessments Encounter Date Diagnosis (ICD Code) Assessment Notes Treatment Notes Treatment Clinical Notes Section Notes 11/16/2024 Type 2 diabetes mellitus with polyneuropathy (ICD-10 - E11.42) 01/25/2025 Type 2 diabetes mellitus with polyneuropathy (ICD-10 - E11.42) 04/05/2025 Type 2 diabetes mellitus with polyneuropathy (ICD-10 - E11.42) 07/05/2025 Type 2 diabetes mellitus with polyneuropathy (ICD-10 - E11.42) 09/20/2025 Type 2 diabetes mellitus with polyneuropathy (ICD-10 [...] 11/05/2023 Next Appt Details Provider Name:Kathrine armando, 12/27/2025 01:00:00 PM, [address] [place], [address], Insurance Providers Payer Name Payer Address Payer Phone Subscriber Number Group Number Insured Name Patient Relationship to Insured Coverage Start Date Coverage End Date [facility] [employer] Claims [address] [place]ríg[place] [id number] Meena Hidalgo Self - patient is the insured Medical (General) History Medical History History ICD Code type 2 diabetes depression/anxiety hyperlipidemia psychophysiological insomnia osteopenia adnexal mass HTN asthma [place] 02/24/19 fatty liver uterine fibroid Arthritis Back,Hip,and [...]
== END 2025-10-11 14:58 | disposition home or self-care (01) ==
LOC: HO.HUSH 13:33
PROVIDERS: Visit Provider Urology
DX: N32.81 Overactive bladder (principal); R31.0 Gross hematuria; R31.29 Other microscopic hematuria; N39.0 Urinary tract infection, site not specified; N40.1 Benign prostatic hyperplasia with lower urinary tract symptoms; N13.8 Other obstructive and reflux uropathy; C67.9 Malignant neoplasm of bladder, unspecified
CPT/HCPCS: 52000